=== PATIENT | male | born 1950 | race Caucasian/White ===

== ENCOUNTER 2022-01-10 12:18 | Inpatient (IN) | payer OTHER, SELFPAY ==
--- NOTE | ~2022-01-10 | CT_ITS ---
EXAMINATION: CT BRAIN AND CT CERVICAL SPINE WITHOUT CONTRAST. CLINICAL INFORMATION: Fall. Pain. COMPARISON: CT cervical spine 07/30/2015 TECHNIQUE: 5 mm thin axial and reformatted 2 mm thin sagittal and coronal images of brain were obtained. Subsequently axial 3 mm thin and reformatted 2 mm thin sagittal and coronal images of cervical spine were obtained. DL [id number] FINDINGS: Brain: There is no acute intra-axial, extra-axial bleed, masses or midline shift. There is no acute infarction evolution. The lateral ventricles are symmetrical in size and configuration without enlargement. The chacon to white matter difference is maintained. There is bilateral basal ganglionic nonspecific calcifications. Bone windows reveal no calvarial abnormality. There is no scalp soft tissue abnormality. There is diffuse mucoperiosteal thickening bilateral frontal, ethmoid and right maxillary sinuses. The mastoid air cells are well-aerated. Cervical spine: There is normal cervical lordosis. The vertebral heights, alignment and disc heights are normal. The craniovertebral junction and the C1-C2 alignment is normal. There is no visible acute fracture, dislocation or subluxation. No lytic or sclerotic process seen. The prevertebral and paravertebral soft tissues are normal. The lung apices are clear. CT/CT cervical spine wo con IMPRESSION: No acute intracranial process seen. No visible acute fracture, dislocation or subluxation seen in cervical spine.
--- NOTE | ~2022-01-10 | XR_ITS ---
EXAMINATION: XR CHEST CLINICAL INFORMATION: Altered mental status. COMPARISON: Chest radiograph done on 02/21/2019. TECHNIQUE: 2 views of the chest were obtained. FINDINGS: Patchy airspace disease is noted at right lung base, suspicious for pneumonia. The remainder of the lung bird are clear. The cardiac mediastinal silhouette is within normal limit. No evidence of any pleural effusion or pneumothorax. Moderate diffuse osteopenia. XR/XR chest 2V IMPRESSION: Patchy airspace disease at right lung base, suspicious for pneumonia.
--- NOTE | ~2022-01-10 | CT_ITS ---
EXAMINATION: CT CHEST, ABDOMEN AND PELVIS WITH CONTRAST. CLINICAL INFORMATION: Fall. Pain. COMPARISON: Chest x-ray 07/24/2018 TECHNIQUE: 5 mm thin axial and reformatted 3 mm thin sagittal and coronal images of chest, abdomen pelvis were obtained following IV 85 mL Omnipaque 350. DLP 1317 FINDINGS: CHEST: The lungs are well-expanded parenchymal patchy density right lower lobe medial segment and reticular patchy stranding right middle lobe. Both upper lobes are relatively clear. There is mild centrilobular emphysema. There are subcentimeter nodules throughout both lungs. A groundglass nodule is seen right upper lobe at the confluence of major and minor fissure. The heart size and the great vessels are normal caliber central trachea and the bronchi widely patent. The thyroid lobes are symmetrical. There is mild to sclerotic calcification of thoracic arch and mild coronary artery calcifications. No pericardial effusion seen. No abnormal size mediastinal or hilar lymph nodes seen. There is no pleural effusion, thickening or calcification. No abnormal size axillary lymph nodes. The chest wall is unremarkable. ABDOMEN AND PELVIS: The liver is homogeneous in density, normal size and contour. No focal lesion or intrahepatic ductal dilatation seen. There are no gallstones or wall thickening Visualized spleen, pancreas and left adrenal gland is unremarkable. A 1.5 cm right adrenal nodule measuring 65 Hounsfield units is noted. The left adrenal gland appears unremarkable. Both kidney nephrograms are symmetrical and normal. No radiopaque calculi or hydronephrosis seen. There is a nonenhancing 1.6 cm cyst upper pole left kidney no additional lesions seen. No hydronephrosis. There are no radiopaque calculi. There is atherosclerotic calcification of abdominal aorta and common iliac arteries without aneurysmal dilatation. No retrobulbar lymph nodes or mass seen. No retroperitoneal bleed or mass seen. There is scattered stool and gas in the colon without distention. The small bowel loops is normal. Appendix is normal. Imaging to the pelvis reveals a Richardson's catheter in the bladder no free fluid. No hematoma or mass seen. Bone windows reveal severe compression fracture L2 vertebra of indeterminate age. CT/CT abdomen pelvis w con IMPRESSION: Patchy parenchymal opacities in the right lower lobe medial segment and right middle lobe. Likely chronic inflammatory process but new since 2016. Acute infiltration or underlying infiltrative lesion is not excluded. No evidence of lung contusion seen. There is underlying emphysema. No acute intra-abdominal process seen. Moderate constipation. L2 compression fracture of indeterminate age likely new since 2016. Correlate with clinical history
--- NOTE | ~2022-01-10 | CT_ITS ---
EXAMINATION: CT BRAIN AND CT CERVICAL SPINE WITHOUT CONTRAST. CLINICAL INFORMATION: Fall. Pain. COMPARISON: CT cervical spine 07/30/2015 TECHNIQUE: 5 mm thin axial and reformatted 2 mm thin sagittal and coronal images of brain were obtained. Subsequently axial 3 mm thin and reformatted 2 mm thin sagittal and coronal images of cervical spine were obtained. DL [id number] FINDINGS: Brain: There is no acute intra-axial, extra-axial bleed, masses or midline shift. There is no acute infarction evolution. The lateral ventricles are symmetrical in size and configuration without enlargement. The chacon to white matter difference is maintained. There is bilateral basal ganglionic nonspecific calcifications. Bone windows reveal no calvarial abnormality. There is no scalp soft tissue abnormality. There is diffuse mucoperiosteal thickening bilateral frontal, ethmoid and right maxillary sinuses. The mastoid air cells are well-aerated. Cervical spine: There is normal cervical lordosis. The vertebral heights, alignment and disc heights are normal. The craniovertebral junction and the C1-C2 alignment is normal. There is no visible acute fracture, dislocation or subluxation. No lytic or sclerotic process seen. The prevertebral and paravertebral soft tissues are normal. The lung apices are clear. CT/CT head/brain wo con IMPRESSION: No acute intracranial process seen. No visible acute fracture, dislocation or subluxation seen in cervical spine.
--- NOTE | 2022-01-10 12:25 | ECG_ITS ---
Test Reason : unresponsive Blood Pressure : / mmHG Vent. Rate : 070 BPM Atrial Rate : 070 BPM P-R Int : 162 ms QRS Dur : 076 ms QT Int : 424 ms P-R-T Axes : 060 006 027 degrees QTc Int : 457 ms Normal sinus rhythm Normal ECG When compared with ECG of 21-FEB-2019 12:07, No significant change was found Referred By: Ping Lam Electronically Signed By:SELVIN RICHARDSON
--- NOTE | 2022-01-10 12:30 | ED_ITS ---
HPI - Overdose General Chief Complaint: Fall Stated Complaint: fall w head strike and LOC Time Seen by Provider: 01/10/22 12:22 Source: EMS Mode of arrival: EMS History of Present Illness HPI Narrative: 71-year-old male who arrives via EMS with witness fall to the ground on the sidewalk, positive head strike, unresponsive at the scene with slow respirations and EMS initially reported that pupils were not you cool or reactive to light. Patient is unable to provide history at this time. On review of documentation patient has been seen previously for overdose. EMS denies administering any Narcan. Related Data Allergies Allergy/AdvReac Type Severity Reaction Status Date / Time No Known Allergies Allergy Unverified 02/16/20 15:59 [No Known Allergies*] Review of Systems Review of Systems: Yes Unobtainable due to mental condition PMFSH Past Medical History Source: nursing notes reviewed Social History Social History Advance Directives: No Advance Directives Information Provided: No Physical Exam Vital Signs: Vital Signs: Last Vital Signs Pulse 66 01/10/22 15:00 Resp 16 01/10/22 15:00 BP 151/79 H 01/10/22 15:00 Pulse Ox 100 01/10/22 15:00 O2 Del Method 01/10/22 15:00 O2 Flow Rate 2 01/10/22 15:00 Oxygen Flow Rate 4 01/10/22 12:44 BMI result Body Mass Index 25.0 VITAL SIGNS: Reviewed. GENERAL: chronically ill, in no acute distress. HEAD: Normocephalic/atraumatic, EYES: PERRLA, pinpoint pupils EARS: Ext canals without abnormality NOSE: Nares patent bilateral OROPHARYNX: no oral lesions noted, posterior pharynx clear NECK: Supple, no adenopathy LUNGS: Normal breath sounds. No adventitious sounds or accessory muscle use. SpO2<100> initially on nasal cannula and able to be transitioned off. CARDIOVASCULAR: Regular rate and rhythm without noted murmurs, no JVD or lower extremity edema. ABDOMEN: Soft, non-tender, non-distended with bowel sounds. MUSCULOSKELETAL: No tenderness, deformities, or effusions noted on gross inspection. EXTREMITIES: No cyanosis, clubbing or edema. SKIN: Inspection of the skin reveals no rashes NEUROLOGIC: Initially unresponsive, but after Narcan became conscious and answering questions. Course Course Course Narrative: 71-year-old male with history and clinical presentation consistent with on further questioning of the patient after he recovered he states that he intentionally took the street drugs after taking his methadone this morning because he wanted to kill himself. Review of all investigations suggestive of possible or pneumonia, however no SIRS response and patient will receive antibiotics the be placed on a Section 12. Review of all investigations negative for acute findings on imaging, patient is oxygenating well and quite interactive, he received initial antibiotics for pneumonia and will undergo behavioral evaluation and is otherwise medically cleared for further evaluation by the crisis team. MDM - Overdose Lab Data Result diagrams: 01/10/22 12:35 01/10/22 12:35 Labs: Lab Results 01/10/22 01/10/22 01/10/22 Range/Units 12:26 12:32 12:32 WBC (4.8-10.8) X10*3/uL RBC (4.60-5.80) X10*6/uL Hgb (14.0-18.0) g/dl Hct (42.0-52.0) % MCV (80.0-98.0) fL MCH (27.0-33.0) pg MCHC (31.0-36.0) g/dl RDW (11.0-16.0) % Plt Count (160-400) X10*3/uL MPV (9.4-12.4) fL Immature Gran % (Auto) (0.0-0.4) % Neut % (Auto) (45-73) % Lymph % (Auto) (20-40) % [place] % (Auto) (2-11) % Eos % (Auto) (0-4) % Baso % (Auto) (0-2) % Lymph # (Auto) (1.2-4.9) X10*3/uL [place] # (Auto) (0.1-1.2) X10*3/uL Eos # (Auto) (0.0-0.4) X10*3/uL Baso # (Auto) (0.0-0.2) X10*3/uL Abs Immat Gran (auto) (0.00-0.03) X10*3/uL Absolute Neuts (auto) (2.0-8.3) x10*3/uL Absolute Nucleated RBC (0.0-0.012) X10*3/uL Nucleated RBC % (auto) (0.0-0.2) /100WBC PT (10.0-13.1) SEC INR (0.9-1.1) Sodium (135-145) mmol/L Potassium (3.3-5.1) mmol/L Chloride (96-108) mmol/L Carbon Dioxide (22-29) mmol/L Anion Gap (12-20) BUN (9-16) mg/dL Creatinine (0.5-1.4) mg/dL Estim Creat Clear Calc Estimated GFR POC Glucose 79 (60-115) mg/dL Random Glucose (60-115) mg/dL Lactic Acid 2.3 H* (0.5-2.0) mmol/L Lactic Acid F/U @ 2Hr (0.5-2.0) mmol/L Calcium (8.4-10.2) mg/dL Magnesium (1.6-2.6) mg/dL Total Bilirubin (0.0-1.0) mg/dL AST (5-37) U/L ALT (0-40) U/L Alkaline Phosphatase (39-117) U/L Ammonia (13-55) umol/L Total Creatine Kinase (38-174) U/L Troponin I High Sens (<3.5-35.0) ng/L B-Natriuretic Peptide (<100) pg/mL Total Protein (6.5-8.0) g/dL Albumin (3.5-5.0) g/dL Lipase (8-78) U/L Urine Color Urine Appearance Urine pH (5.0-8.0) Ur Specific [place] (1.005-1.025) Urine Protein (NEG-TRACE) MG/DL Urine Glucose (UA) (NEG) MG/DL Urine Ketones (NEG) MG/DL Urine Blood (NEG) Urine Nitrite (NEG) Ur Leukocyte Esterase (NEG) Salicylates (15-30) mg/dL Urine Opiates Screen (Not Detect) Urine Fentanyl Screen (Not Detect) Acetaminophen (<30) mcg/mL Ur Barbiturates Screen (Not Detect) Ur Phencyclidine Scrn (Not Detect) Ur Amphetamines Screen (Not Detect) U Benzodiazepines Scrn (Not Detect) Urine Cocaine Screen (Not Detect) U Marijuana (THC) Screen (Not Detect) Ethyl Alcohol mg/dL COVID-19 (RONNIE) Negative (Negative) COVID-19 Clin Com See Note 01/10/22 01/10/22 01/10/22 Range/Units 12:35 12:35 12:35 WBC 7.4 (4.8-10.8) X10*3/uL RBC 3.79 L (4.60-5.80) X10*6/uL Hgb 10.9 L (14.0-18.0) g/dl Hct 34.8 L (42.0-52.0) % MCV 91.8 (80.0-98.0) fL MCH 28.8 (27.0-33.0) pg MCHC 31.3 (31.0-36.0) g/dl RDW 14.9 (11.0-16.0) % Plt Count 209 (160-400) X10*3/uL MPV 10.0 (9.4-12.4) fL Immature Gran % (Auto) 0.5 H (0.0-0.4) % Neut % (Auto) 37.3 L (45-73) % Lymph % (Auto) 47.2 H (20-40) % [place] % (Auto) 8.2 (2-11) % Eos % (Auto) 6.3 H (0-4) % Baso % (Auto) 0.5 (0-2) % Lymph # (Auto) 3.5 (1.2-4.9) X10*3/uL [place] # (Auto) 0.6 (0.1-1.2) X10*3/uL Eos # (Auto) 0.5 H (0.0-0.4) X10*3/uL Baso # (Auto) 0.0 (0.0-0.2) X10*3/uL Abs Immat Gran (auto) 0.04 H (0.00-0.03) X10*3/uL Absolute Neuts (auto) 2.8 (2.0-8.3) x10*3/uL Absolute Nucleated RBC 0.000 (0.0-0.012) X10*3/uL Nucleated RBC % (auto) 0.0 (0.0-0.2) /100WBC PT 11.5 (10.0-13.1) SEC INR 1.0 (0.9-1.1) Sodium 140 (135-145) mmol/L Potassium 4.1 (3.3-5.1) mmol/L Chloride 106 (96-108) mmol/L Carbon Dioxide 26 (22-29) mmol/L Anion Gap 12 (12-20) BUN 15 (9-16) mg/dL Creatinine 0.75 (0.5-1.4) mg/dL Estim Creat Clear Calc 87.4 Estimated GFR > 60 POC Glucose (60-115) mg/dL Random Glucose 90 (60-115) mg/dL Lactic Acid (0.5-2.0) mmol/L Lactic Acid F/U @ 2Hr (0.5-2.0) mmol/L Calcium 8.7 (8.4-10.2) mg/dL Magnesium 1.8 (1.6-2.6) mg/dL Total Bilirubin 0.3 (0.0-1.0) mg/dL AST 13 (5-37) U/L ALT 11 (0-40) U/L Alkaline Phosphatase 54 (39-117) U/L Ammonia (13-55) umol/L Total Creatine Kinase (38-174) U/L Troponin I High Sens (<3.5-35.0) ng/L B-Natriuretic Peptide (<100) pg/mL Total Protein 6.4 L (6.5-8.0) g/dL Albumin 3.7 (3.5-5.0) g/dL Lipase 4 L (8-78) U/L Urine Color Urine Appearance Urine pH (5.0-8.0) Ur Specific [place] (1.005-1.025) Urine Protein (NEG-TRACE) MG/DL Urine Glucose (UA) (NEG) MG/DL Urine Ketones (NEG) MG/DL Urine Blood (NEG) Urine Nitrite (NEG) Ur Leukocyte Esterase (NEG) Salicylates < 5.0 L (15-30) mg/dL Urine Opiates Screen (Not Detect) Urine Fentanyl Screen (Not Detect) Acetaminophen 2 (<30) mcg/mL Ur Barbiturates Screen (Not Detect) Ur Phencyclidine Scrn (Not Detect) Ur Amphetamines Screen (Not Detect) U Benzodiazepines Scrn (Not Detect) Urine Cocaine Screen (Not Detect) U Marijuana (THC) Screen (Not Detect) Ethyl Alcohol mg/dL COVID-19 (RONNIE) (Negative) COVID-19 Clin Com 01/10/22 01/10/22 01/10/22 Range/Units 12:36 12:36 12:36 WBC (4.8-10.8) X10*3/uL RBC (4.60-5.80) X10*6/uL Hgb (14.0-18.0) g/dl Hct (42.0-52.0) % MCV (80.0-98.0) fL MCH (27.0-33.0) pg MCHC (31.0-36.0) g/dl RDW (11.0-16.0) % Plt Count (160-400) X10*3/uL MPV (9.4-12.4) fL Immature Gran % (Auto) (0.0-0.4) % Neut % (Auto) (45-73) % Lymph % (Auto) (20-40) % [place] % (Auto) (2-11) % Eos % (Auto) (0-4) % Baso % (Auto) (0-2) % Lymph # (Auto) (1.2-4.9) X10*3/uL [place] # (Auto) (0.1-1.2) X10*3/uL Eos # (Auto) (0.0-0.4) X10*3/uL Baso # (Auto) (0.0-0.2) X10*3/uL Abs Immat Gran (auto) (0.00-0.03) X10*3/uL Absolute Neuts (auto) (2.0-8.3) x10*3/uL Absolute Nucleated RBC (0.0-0.012) X10*3/uL Nucleated RBC % (auto) (0.0-0.2) /100WBC PT (10.0-13.1) SEC INR (0.9-1.1) Sodium (135-145) mmol/L Potassium (3.3-5.1) mmol/L Chloride (96-108) mmol/L Carbon Dioxide (22-29) mmol/L Anion Gap (12-20) BUN (9-16) mg/dL Creatinine (0.5-1.4) mg/dL Estim Creat Clear Calc Estimated GFR POC Glucose (60-115) mg/dL Random Glucose (60-115) mg/dL Lactic Acid (0.5-2.0) mmol/L Lactic Acid F/U @ 2Hr (0.5-2.0) mmol/L Calcium (8.4-10.2) mg/dL Magnesium (1.6-2.6) mg/dL Total Bilirubin (0.0-1.0) mg/dL AST (5-37) U/L ALT (0-40) U/L Alkaline Phosphatase (39-117) U/L Ammonia 48 (13-55) umol/L Total Creatine Kinase 122 (38-174) U/L Troponin I High Sens < 3.5 (<3.5-35.0) ng/L B-Natriuretic Peptide 112 H (<100) pg/mL Total Protein (6.5-8.0) g/dL Albumin (3.5-5.0) g/dL Lipase (8-78) U/L Urine Color Urine Appearance Urine pH (5.0-8.0) Ur Specific [place] (1.005-1.025) Urine Protein (NEG-TRACE) MG/DL Urine Glucose (UA) (NEG) MG/DL Urine Ketones (NEG) MG/DL Urine Blood (NEG) Urine Nitrite (NEG) Ur Leukocyte Esterase (NEG) Salicylates (15-30) mg/dL Urine Opiates Screen (Not Detect) Urine Fentanyl Screen (Not Detect) Acetaminophen (<30) mcg/mL Ur Barbiturates Screen (Not Detect) Ur Phencyclidine Scrn (Not Detect) Ur Amphetamines Screen (Not Detect) U Benzodiazepines Scrn (Not Detect) Urine Cocaine Screen (Not Detect) U Marijuana (THC) Screen (Not Detect) Ethyl Alcohol < 10 mg/dL COVID-19 (RONNIE) (Negative) COVID-19 Clin Com 01/10/22 01/10/22 01/10/22 Range/Units 12:42 12:42 15:28 WBC (4.8-10.8) X10*3/uL RBC (4.60-5.80) X10*6/uL Hgb (14.0-18.0) g/dl Hct (42.0-52.0) % MCV (80.0-98.0) fL MCH (27.0-33.0) pg MCHC (31.0-36.0) g/dl RDW (11.0-16.0) % Plt Count (160-400) X10*3/uL MPV (9.4-12.4) fL Immature Gran % (Auto) (0.0-0.4) % Neut % (Auto) (45-73) % Lymph % (Auto) (20-40) % [place] % (Auto) (2-11) % Eos % (Auto) (0-4) % Baso % (Auto) (0-2) % Lymph # (Auto) (1.2-4.9) X10*3/uL [place] # (Auto) (0.1-1.2) X10*3/uL Eos # (Auto) (0.0-0.4) X10*3/uL Baso # (Auto) (0.0-0.2) X10*3/uL Abs Immat Gran (auto) (0.00-0.03) X10*3/uL Absolute Neuts (auto) (2.0-8.3) x10*3/uL Absolute Nucleated RBC (0.0-0.012) X10*3/uL Nucleated RBC % (auto) (0.0-0.2) /100WBC PT (10.0-13.1) SEC INR (0.9-1.1) Sodium (135-145) mmol/L Potassium (3.3-5.1) mmol/L Chloride (96-108) mmol/L Carbon Dioxide (22-29) mmol/L Anion Gap (12-20) BUN (9-16) mg/dL Creatinine (0.5-1.4) mg/dL Estim Creat Clear Calc Estimated GFR POC Glucose (60-115) mg/dL Random Glucose (60-115) mg/dL Lactic Acid (0.5-2.0) mmol/L Lactic Acid F/U @ 2Hr 1.5 (0.5-2.0) mmol/L Calcium (8.4-10.2) mg/dL Magnesium (1.6-2.6) mg/dL Total Bilirubin (0.0-1.0) mg/dL AST (5-37) U/L ALT (0-40) U/L Alkaline Phosphatase (39-117) U/L Ammonia (13-55) umol/L Total Creatine Kinase (38-174) U/L Troponin I High Sens (<3.5-35.0) ng/L B-Natriuretic Peptide (<100) pg/mL Total Protein (6.5-8.0) g/dL Albumin (3.5-5.0) g/dL Lipase (8-78) U/L Urine Color YELLOW Urine Appearance CLEAR Urine pH 6.0 (5.0-8.0) Ur Specific [place] >= 1.030 H (1.005-1.025) Urine Protein TRACE (NEG-TRACE) MG/DL Urine Glucose (UA) NEG (NEG) MG/DL Urine Ketones 5 (NEG) MG/DL Urine Blood NEG (NEG) Urine Nitrite NEG (NEG) Ur Leukocyte Esterase NEG (NEG) Salicylates (15-30) mg/dL Urine Opiates Screen POSITIVE H (Not Detect) Urine Fentanyl Screen POSITIVE H (Not Detect) Acetaminophen (<30) mcg/mL Ur Barbiturates Screen Not Detected (Not Detect) Ur Phencyclidine Scrn Not Detected (Not Detect) Ur Amphetamines Screen Not Detected (Not Detect) U Benzodiazepines Scrn Not Detected (Not Detect) Urine Cocaine Screen Not Detected (Not Detect) U Marijuana (THC) Screen Not Detected (Not Detect) Ethyl Alcohol mg/dL COVID-19 (RONNIE) (Negative) COVID-19 Clin Com ECG Data Attestation: I personally reviewed and interpreted this ECG as follows: Prior ECG tracings: available for review Interpretation: Normal sinus rhythm, HR-70, no STEMI, OK/QRS/QTC is within normal limits. Discharge Plan Discharge Clinical Impression: Intentional overdose, Pneumonia, Suicidal ideation Patient Disposition: Still a Patient
[2022-01-10 12:42] LABS: Glucose, Whole Blood 79 mg/dL (60-115)
[2022-01-10 12:44] VITALS: BP 153/87; PULSE 85; RESP 12; O2SAT 98; BMI 25.0
[2022-01-10 12:48] LABS: Appearance Urine CLEAR; Color Urine YELLOW; Glucose Urine UA NEG (NEG); Leukocyte Esterase Urine NEG (NEG); Nitrite Urine NEG (NEG); Specific Gravity - Urine >= 1.030 (1.005-1.025); Urine Blood NEG (NEG); Urine Ketones 5 MG/DL (NEG); Urine Protein TRACE MG/DL (NEG-TRACE)
[2022-01-10 12:48] LABS: MANUAL DIFF FLAG NO
[2022-01-10] MEDS: 0.9 % Sodium Chloride 1,000 ML 999 ML IVCONT (12:48)
[2022-01-10] MEDS: Naloxone HCl Nasal 4 MG SPRAY NOSTRILALT (12:48)
[2022-01-10 12:55] LABS: Basophils Percent Auto 0.5 % (0-2); Eosinophils Absolute Auto 0.5 X10*3/uL (0.0-0.4); Eosinophils Percent Auto 6.3 % (0-4); Hematocrit 34.8 % (42.0-52.0); Hemoglobin 10.9 g/dl (14.0-18.0); Imm Gran Abs Auto 0.04 X10*3/uL (0.00-0.03); Imm Gran Pct Auto 0.5 % (0.0-0.4); Lymphocytes Absolute Auto 3.5 X10*3/uL (1.2-4.9); Lymphocytes Percent Auto 47.2 % (20-40); Mean Corpuscular HGB Conc 31.3 g/dl (31.0-36.0); Mean Corpuscular Hemoglobin 28.8 pg (27.0-33.0); Mean Corpuscular Volume 91.8 fL (80.0-98.0); Monocytes Absolute Auto 0.6 X10*3/uL (0.1-1.2); Monocytes Percent Auto 8.2 % (2-11); Neutrophils Absolute Auto 2.8 x10*3/uL (2.0-8.3); Neutrophils Percent Auto 37.3 % (45-73); Platelet Count 209 X10*3/uL (160-400); Red Blood Count 3.79 X10*6/uL (4.60-5.80); Red Cell Distribution Width 14.9 % (11.0-16.0); White Blood Count 7.4 X10*3/uL (4.8-10.8)
[2022-01-10 12:59] LABS: Ammonia 48 umol/L (13-55)
[2022-01-10 13:00] LABS: Prothrombin Time 11.5 SEC (10.0-13.1)
[2022-01-10 13:04] LABS: Amphetamine Screen Urine Not Detected (Not Detect); Barbiturates, Urine Not Detected (Not Detect); Benzodiazepines Screen Urine Not Detected (Not Detect); Cannabinoid Screen Urine Not Detected (Not Detect); Cocaine Screen Urine Not Detected (Not Detect); Fentanyl, urine POSITIVE (Not Detect); Opiate Screen Urine POSITIVE (Not Detect); Phencyclidine Screen Urine Not Detected (Not Detect)
[2022-01-10 13:09] VITALS: BP 171/81; PULSE 77; RESP 16; O2SAT 98
[2022-01-10 13:12] LABS: Ethanol < 10 mg/dL
[2022-01-10 13:12] LABS: Acetaminophen LAB 2 mcg/mL (<30); Alanine Aminotransferase 11 U/L (0-40); Albumin Level 3.7 g/dL (3.5-5.0); Alkaline Phosphatase 54 U/L (39-117); Anion Gap 12 (12-20); Aspartate Amino Transferase 13 U/L (5-37); Bilirubin Total 0.3 mg/dL (0.0-1.0); Blood Urea Nitrogen 15 mg/dL (9-16); Calcium 8.7 mg/dL (8.4-10.2); Carbon Dioxide 26 mmol/L (22-29); Chloride 106 mmol/L (96-108); Creatinine Clr Calc Pharmacy 87.4; Estimated Glomerular Filt Rate > 60; Glucose Random 90 mg/dL (60-115); Lipase 4 U/L (8-78); Magnesium 1.8 mg/dL (1.6-2.6); Potassium 4.1 mmol/L (3.3-5.1); Salicylate < 5.0 mg/dL (15-30); Sodium 140 mmol/L (135-145); Total Protein 6.4 g/dL (6.5-8.0)
[2022-01-10 13:14] LABS: B Type Natriuretic Peptide 112 pg/mL (<100); Troponin-I High Sensitivity < 3.5 ng/L (<3.5-35.0)
[2022-01-10 13:19] LABS: Lactic Acid 2.3 mmol/L (0.5-2.0)
[2022-01-10 13:30] VITALS: BP 143/83; PULSE 75; RESP 14; O2SAT 99
[2022-01-10 13:35] LABS: COVID-19 Test Negative (Negative)
[2022-01-10] MEDS: 0.9 % Sodium Chloride 1,000 ML 999 ML IV (14:10)
[2022-01-10 14:44] LABS: Reflex Lactate? Lactic Acid Added
[2022-01-10 15:00] VITALS: BP 151/79; PULSE 66; RESP 16; O2SAT 100
[2022-01-10 15:49] LABS: ~Lactic Acid-LAB USE ONLY 1.5 mmol/L (0.5-2.0)
--- NOTE | 2022-01-10 17:34 | PC.NURSE ---
PT EXPRESSED TO DR LEI THAT HIS OD WAS INTENTIONAL AND THAT HE DOESNT WANT TO LIVE. CONSISTENTLY ENDORSES SI HIS GEORGE CATH WAS REMOVED AND EMPTIED OF 2L URINE, HE IS AMBULATORY IN THE ED SAFELY AND HAS TOLERATED PO FLUIDS. PLAN FOR N EVAL FOR SI
[2022-01-10 18:30] VITALS: BP 152/81; PULSE 71; RESP 16; O2SAT 97
--- NOTE | 2022-01-10 18:32 | PC.NURSE ---
IV ACCESS REMOVED AND PT BROUGHT TO THE POD
--- NOTE | 2022-01-10 19:00 | MHC.CARE ---
[facility] Smart sheet completed and confirmed.
[2022-01-11 06:14] VITALS: BP 123/74; PULSE 63; RESP 16; TEMP 36.8; O2SAT 93
--- NOTE | 2022-01-11 06:17 | PC.NURSE ---
Patient slept through the night, no distress observed/reported, med rec completed/JUL updated, disposition per [facility] is section 12 inpatient bed search, VSS, behavior non concerning, will continue to monitor.
--- NOTE | 2022-01-11 07:20 | PC.NURSE ---
patient appears to remain at rest at present respirations are even and unlabored patient appears in no distress
--- NOTE | 2022-01-11 08:26 | PC.NURSE ---
resource asked that i note her numbers for the record [facility] home [id number] and cell [phone]
--- NOTE | 2022-01-11 09:53 | HE.PHANOTE ---
Pharmacy has recieved Methadone Verification form from Letty. Patient receive 25 mg omn 01/10/2022 ay [facility] Dmitry. Letty spoke with Alis. Margarita Alcazar, MarshallD
[2022-01-11] MEDS: methADONE HCl 20 MG/2 ML ORAL.CONC 25 MG PO (10:00)
--- NOTE | 2022-01-11 11:14 | MHC.RECOVSUP ---
PT IS A 71YR OLD MALE WHO ADMITTED TO THE HOSPITAL FOR INTENTIONAL OVERDOSE. I WAS ASKED TO SEE PT BY THE CARE TEAM. PT STATED THAT HE IS ON METHADONE BUT WAS TIRED OF LIVING. HE STATED THAT HE THEN PROCEEDED TO USE A FEW BAGS OF HEROIN. PT STATED THAT HE HAS FAMILY BUT DOES NOT SEE THEM OFTEN. PT STATED THAT [place] AND IT HELPS FOR AWHILE. I ASKED HIM IF HE WOULD BE INTERESTED IN HAVING A STALLION MANAGER. PT STATED YES. THIS STALLION MANAGER WILL MAKE A REFERRAL FOR PT TO OBTAIN A STALLION MANAGER. I ALSO GAVE HIM SOME INFORMATION AND RESOURCES.
[2022-01-11 14:01] VITALS: BP 127/72; PULSE 68; RESP 16; TEMP 36.9; O2SAT 98
--- NOTE | 2022-01-11 16:27 | PHA.MEDREC ---
Pharmacy Consult ? Medication Reconciliation Pharmacy has completed the medication reconciliation. per med list from [place]
[2022-01-11 21:56] VITALS: BP 144/85; PULSE 65; RESP 18; TEMP 36.7; O2SAT 96
[2022-01-12 01:09] VITALS: BP 175/86; PULSE 62; RESP 17; TEMP 36.4; O2SAT 98
--- NOTE | 2022-01-12 06:50 | PC.NURSE ---
Patient slept through the night, no distress observed/reported, med rec completed by pharmacy/pending provider's approval, disposition per [facility] is section 12 inpatient bed search, VSS, behavior non concerning, will continue to monitor.
[2022-01-12] MEDS: Prochlorperazine Maleate 5 MG TABLET PO (07:15)
--- NOTE | 2022-01-12 07:38 | PC.NURSE ---
patient appears to remain at rest this morning, experiencing a little nausea but compazine appearing to have some positive effect patient appears in no distress
[2022-01-12] MEDS: methADONE HCl 20 MG/2 ML ORAL.CONC 25 MG PO (08:01)
[2022-01-12 11:33] VITALS: BP 139/77; PULSE 68; RESP 16; O2SAT 97
[2022-01-12 15:45] VITALS: BP 123/80; PULSE 74; RESP 18; TEMP 36.6; O2SAT 98
[2022-01-12] MEDS: Gabapentin 300 MG CAPSULE 900 MG PO (16:09)
[2022-01-12] MEDS: Gabapentin 400 MG CAPSULE 1200 MG PO (21:44)
[2022-01-12] MEDS: Calcium + Vitamin D 250 MG TABLET 500 MG PO (21:44)
[2022-01-12] MEDS: Sennosides/Docusate Sodium TABLET 2 TAB PO (21:45)
[2022-01-12] MEDS: OLANZapine 7.5 MG TABLET PO (21:45)
[2022-01-12] MEDS: Amitriptyline HCl 10 MG TABLET 20 MG PO (22:19)
--- NOTE | 2022-01-13 06:34 | PC.NURSE ---
Patient slept through the night, no distress observed/reported, medication compliant, PNA treated with doxy, disposition per [facility] is section 12 inpatient bed search, patient may be discharged pending [facility] talk with [facility], VSS, behavior pleasant and non concerning, will continue to monitor.
[2022-01-13 08:07] VITALS: BP 157/89; PULSE 73; RESP 13; TEMP 36.3; O2SAT 96
[2022-01-13] MEDS: methADONE HCl 20 MG/2 ML ORAL.CONC 25 MG PO (10:16)
[2022-01-13] MEDS: Cholecalciferol (Vitamin D3) 25 MCG TABLET 50 MCG PO (10:17)
[2022-01-13] MEDS: Famotidine 20 MG TABLET PO (10:17)
[2022-01-13] MEDS: Gabapentin 300 MG CAPSULE 900 MG PO ×2 (10:17→16:32)
[2022-01-13] MEDS: Magnesium Oxide 400 MG TABLET PO (10:17)
[2022-01-13] MEDS: Tamsulosin HCL 0.4 MG CAPSULE PO (10:17)
[2022-01-13] MEDS: Calcium + Vitamin D 250 MG TABLET 500 MG PO ×2 (10:17→22:11)
[2022-01-13] MEDS: Lidocaine 4 % Patch ADH..PATCH 2 PATCH TRANSDERMA (10:18)
[2022-01-13] MEDS: Divalproex Sodium ER 250 MG TAB.ER.24H 1250 MG PO (12:43)
--- NOTE | 2022-01-13 13:57 | PC.NURSE ---
Patient has been calm/cooperative throughout this RN's shift that began at 8am. Pt able to make needs known. Per Kathy Marte RN, attempting to determine if patient will be admitted for geripsych, or if he will be discharged. Needs to speak with [facility] at [facility]. Pt aware of this and states okay, [facility] . Awaiting update on plan of care.
[2022-01-13] MEDS: Acetaminophen 325 MG TABLET 650 MG PO (16:34)
[2022-01-13 17:03] LABS: COVID-19 Test Negative (Negative); IDNOW Serial# 9DB6401D
[2022-01-13] MEDS: NaPROXEN 250 MG TABLET PO (18:02)
[2022-01-13 21:47] VITALS: BP 141/76; PULSE 65; RESP 18; TEMP 36.6; O2SAT 97
[2022-01-13] MEDS: Amitriptyline HCl 10 MG TABLET 20 MG PO (22:11)
[2022-01-13] MEDS: Gabapentin 400 MG CAPSULE 1200 MG PO (22:11)
[2022-01-13] MEDS: OLANZapine 7.5 MG TABLET PO (22:12)
[2022-01-13] MEDS: Sennosides/Docusate Sodium TABLET 2 TAB PO (22:12)
[2022-01-13 22:22] VITALS: BMI 22.3
--- NOTE | 2022-01-13 22:23 | PC.ADMIT ---
Admitted a 71 yrs. old Frisian speaking male per wheelchair from ED pod with presenting problem of intentionally attempting suicide by overdosing on heroine and fentanyl on [place], [place].The hospital staff reported that Mahendra was taken to the ER by EMS after he was found unconscious along the roadways on [facility].They further reported that he was given Narcan by hospital staff to regain consciousness. Upon admission here in the unit, pt. is alert and oriented x4, memory intact.Skin is warm and dry, intact w/ slight scratches in the coccyx and old fading bruises on upper ext. Patient wears upper dentures and has bilateral hearing aids.Patient signed the CV and all paperworks.Per [facility] and [facility] medical records pt. has hx. of COPD, chronic pain and seizure disorder and uses CPAP machine sometimes. Last seizure 1 month ago.Patient at this time denies SI and pain and feels safe in the unit. Pt. is med compliant w/ all his HS meds and was given snacks and went back to bed.Lab draws donel.We'll continue to monitor patient.
[2022-01-13 22:46] LABS: Valproate 57.5 mcg/mL (50.0-100.0)
[2022-01-14 08:00] VITALS: BP 127/68; PULSE 71; RESP 18; TEMP 35.7; O2SAT 96
[2022-01-14 08:27] LABS: Estimated Average Glucose 103 mg/dL; Hemoglobin A1c % 5.2 %
[2022-01-14 08:36] LABS: Cholesterol 182 mg/dL; HDL Cholesterol 30 mg/dL; LDL Cholesterol Calculated 107 mg/dl; Triglycerides 227 mg/dL
[2022-01-14 08:58] LABS: Free T4 (Free Thyroxine) 0.82 ng/dL (0.71-1.85); Thyroid Stimulating Hormone 3.84 uIU/mL (0.32-4.0)
[2022-01-14] MEDS: Lidocaine 4 % Patch ADH..PATCH 2 PATCH TRANSDERMA (09:24)
[2022-01-14] MEDS: methADONE HCl 20 MG/2 ML ORAL.CONC 25 MG PO (09:27)
[2022-01-14] MEDS: Gabapentin 300 MG CAPSULE 900 MG PO ×2 (09:29→17:26)
[2022-01-14] MEDS: Cholecalciferol (Vitamin D3) 25 MCG TABLET 50 MCG PO (09:29)
[2022-01-14] MEDS: Divalproex Sodium ER 250 MG TAB.ER.24H 1250 MG PO (09:30)
[2022-01-14] MEDS: Calcium + Vitamin D 250 MG TABLET 500 MG PO ×2 (09:31→19:59)
[2022-01-14] MEDS: Famotidine 20 MG TABLET PO (09:31)
[2022-01-14] MEDS: Tamsulosin HCL 0.4 MG CAPSULE PO (09:32)
[2022-01-14] MEDS: Magnesium Oxide 400 MG TABLET PO (09:32)
[2022-01-14] MEDS: Nicotine 14 MG PATCH.TD24 TRANSDERMA (09:35)
[2022-01-14] MEDS: Acetaminophen 325 MG TABLET 650 MG PO ×2 (09:49→20:00)
[2022-01-14 10:06] LABS: Vitamin B12 547 pg/mL (200-900)
--- NOTE | 2022-01-14 15:30 | HO.PSYADMNOT ---
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 The patient reported that he carries a diagnosis of bipolar disorder and also p.o. use disorder as per his report clean and sober of illegal opioids for several years. He stated that in the last with history feeling more depressed elicited by depressed mood, anhedonia, lack of energy, feelings of hopelessness and worthlessness and increase suicidal ideation. The patient impulsively decided to commit suicide by taking an overdose of opioids. He was rushed to the emergency room from the street that past virus found him, he was treated with Narcan and medically stabilized. He was diagnosed also with pneumoniae history did with antibiotics. On interview, the patient was able to contract for safety in the facility, he stated that he has reviewed breast with episodes of with anxiety. He requested the use of Xanax that he used to take back several years ago for anxiety. At this moment he adamantly denies active suicidal ideation or psychotic symptoms Past Psychiatric History: The patient has several psychiatric admissions, he was diagnosed with bipolar disorder in his 40s, he has at least 6 prior psychiatric admissions last admission at [facility]. [facility] Medical Evaluation Reviewed: Yes [facility] Narrative: Currently pneumonia The patient has several admissions into the emergency room for active overdose with opioids in a suicidal attempt Family History: Denies Social History: The patient is born and raised in [place], he served in the [place] and according to him he has 4 adult children. 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[employer], good social support Substance History: Long history of opiate use disorder, he was on methadone for several years. Trauma History: Denies Diagnostics Vital Signs (24Hr): Vital Signs - 24 hr 01/14/22 08:00 Temperature 96.3 F L Pulse Rate 71 Respiratory Rate 18 Blood Pressure 127/68 Pulse Oximetry 96 Oxygen Delivery Method Room Air BMI result Body Mass Index 22.3 Labs Results: 01/10/22 12:35 01/10/22 12:35 Labs: Laboratory Results - last 48 hr 01/13/22 01/13/22 01/14/22 16:21 21:55 07:54 Estimat Average Glucose 103 Hemoglobin A1c % 5.2 Magnesium Triglycerides Cholesterol LDL Cholesterol, Calc HDL Cholesterol Vitamin B12 Folate TSH Free T4 Valproic Acid 57.5 COVID-19 ([facility]IE) Negative COVID-19 Clin Com See Note 01/14/22 01/14/22 07:54 07:54 Estimat Average Glucose Hemoglobin A1c % Magnesium 2.0 Triglycerides 227 Cholesterol 182 LDL Cholesterol, Calc 107 HDL Cholesterol 30 Vitamin B12 547 Folate 5.0 TSH 3.84 Free T4 0.82 Valproic Acid COVID-19 ([facility]) COVID-19 Clin Com Imaging Radiology Impressions: ITS Impressions Abdomen/Pelvis CT 01/10/22 14:46 IMPRESSION: Patchy parenchymal opacities in the right lower lobe medial segment and right middle lobe. Likely chronic inflammatory process but new since 2016. Acute infiltration or underlying infiltrative lesion is not excluded. No evidence of lung contusion seen. There is underlying emphysema. No acute intra-abdominal process seen. Moderate constipation. L2 compression fracture of indeterminate age likely new since 2016. Correlate with clinical history Cervical Spine CT 01/10/22 14:46 IMPRESSION: No acute intracranial process seen. No visible acute fracture, dislocation or subluxation seen in cervical spine. Chest CT 01/10/22 14:46 IMPRESSION: Patchy parenchymal opacities in the right lower lobe medial segment and right middle lobe. Likely chronic inflammatory process but new since 2016. Acute infiltration or underlying infiltrative lesion is not excluded. No evidence of lung contusion seen. There is underlying emphysema. No acute intra-abdominal process seen. Moderate constipation. L2 compression fracture of indeterminate age likely new since 2016. Correlate with clinical history Head CT 01/10/22 14:46 IMPRESSION: No acute intracranial process seen. No visible acute fracture, dislocation or subluxation seen in cervical spine. Chest X-Ray 01/10/22 16:11 IMPRESSION: Patchy airspace disease at right lung base, suspicious for pneumonia. Meds/Allergies Meds Home Medications Medication Instructions Recorded Confirmed Type acetaminophen 500 mg tablet 1,000 mg PO TID PRN Pain, Mild 01/11/22 01/11/22 History alendronate 70 mg tablet 70 mg PO QWEEK 01/11/22 01/11/22 History amitriptyline 10 mg tablet 20 mg PO BEDTIME 01/11/22 01/11/22 History calcium carbonate 500 mg-vitamin 1 tab PO BID 01/11/22 01/11/22 History D3 3.125 mcg (125 unit) tablet cholecalciferol (vitamin D3) 50 50 mcg PO DAILY 01/11/22 01/11/22 History mcg (2,000 unit) tablet cyclobenzaprine 5 mg tablet 5 mg PO BID PRN Muscle Spasm 01/11/22 01/11/22 History diclofenac sodium 1 % topical gel 2 g topical QID PRN osteoarthritis 01/11/22 01/11/22 History divalproex 250 mg tablet,extended 1,250 mg PO DAILY 01/11/22 01/11/22 History release 24 hr (Depakote ER) famotidine 20 mg tablet 20 mg PO DAILY 01/11/22 01/11/22 History gabapentin 300 mg capsule 1,200 mg PO BEDTIME 01/11/22 01/11/22 History gabapentin 300 mg capsule 900 mg PO BID@0900,1700 01/11/22 01/11/22 History ketorolac 0.5 % eye drops 1 drp ophthalmic (eye) BID 01/11/22 01/11/22 History lidocaine 5 % topical patch 2 patch topical DAILY 01/11/22 01/11/22 History magnesium oxide 420 mg tablet 420 mg PO DAILY 01/11/22 01/11/22 History melatonin 5 mg tablet 5 mg PO BEDTIME PRN Sleep 01/11/22 01/11/22 History meloxicam 7.5 mg tablet 7.5 mg PO DAILY PRN Pain, Mild 01/11/22 01/11/22 History methadone 10 mg/mL oral concentrate 25 mg PO DAILY 01/11/22 01/11/22 History nicotine 14 mg/24 hr daily 1 patch transdermal DAILY 01/11/22 01/11/22 History transdermal patch olanzapine 2.5 mg tablet 2.5 mg PO DAILY PRN Anxiety 01/11/22 01/11/22 History olanzapine 7.5 mg tablet 7.5 mg PO BEDTIME 01/11/22 01/11/22 History quetiapine 25 mg tablet 12.5 mg PO TID PRN Anxiety 01/11/22 01/11/22 History sennosides 8.6 mg-docusate sodium 2 tab-cap PO BEDTIME 01/11/22 01/11/22 History 50 mg tablet (Senna-S) tamsulosin 0.4 mg capsule 0.4 mg PO DAILY 01/11/22 01/11/22 History Allergies Allergies Allergy/AdvReac Type Severity Reaction Status Date / Time No Known Allergies Allergy Unverified 02/16/20 15:59 [No Known Allergies*] Mental Status Exam Mental Status Exam Patient Appearance: Well Grooomed Patient Orientation: Person, Place and Situation Level of Consciousness: Awake Patient Behavior: Guarded and Cooperative Mood Description: Withdrawn Affect Description: Labile Ability to Follow Directions: Good Speech Pattern: Clear Hallucinations: None Delusions: Not Present Thought Process: Distracted Thought Content: positive for [place] and positive for Poverty of Content Judgement: Fair Assessment & Plan Assessment & Plan (1) Intentional overdose: Status: Acute Code(s): T50.902A - Poisoning by unspecified drugs, medicaments and biological substances, intentional self-harm, initial encounter (2) Pneumonia: Status: Acute Code(s): J18.9 - Pneumonia, unspecified organism (3) Suicidal ideation: Status: Acute Code(s): R45.851 - Suicidal ideations (4) Bipolar disorder: Status: Acute Code(s): F31.9 - Bipolar disorder, unspecified Plan Elderly Iranian male with a long history of bipolar disorder and opiate use disorder with several prior admissions into the emergency room for intentional overdose on opiates suicidal attempt. Currently he is stable but he was also diagnosed of pneumonia anti 1 Yo [place] right now. He has all his care at the [place]. Plan 1. Gather collateral information. 2. Continue with Depakote gabapentin other mood stabilizers. 3. Add a low dose of Ativan p.r.n. anxiety. Patient educated on: diagnosis Guardian/Caregiver educated on: therapeutic strategies and medical condition Informed Consent: understands Reason for continued inpatient stay Substantial Risk for: harm to self, inability to function, rapid decompensation and med/psych decompensation
[2022-01-14 18:00] VITALS: BP 130/69; PULSE 70; RESP 16; TEMP 36.3; O2SAT 98
[2022-01-14 19:32] VITALS: BP 130/69; PULSE 70; RESP 16; TEMP 36.3; O2SAT 98
[2022-01-14] MEDS: Amitriptyline HCl 10 MG TABLET 20 MG PO (19:58)
[2022-01-14] MEDS: Gabapentin 400 MG CAPSULE 1200 MG PO (19:59)
[2022-01-14] MEDS: OLANZapine 7.5 MG TABLET PO (19:59)
[2022-01-14] MEDS: Sennosides/Docusate Sodium TABLET 2 TAB PO (19:59)
[2022-01-14] MEDS: hydrOXYzine HCL 25 MG TABLET PO (20:01)
[2022-01-15 06:00] VITALS: BP 143/82; PULSE 67; RESP 18; TEMP 35.9; O2SAT 97
[2022-01-15] MEDS: Cholecalciferol (Vitamin D3) 25 MCG TABLET 50 MCG PO (07:50)
[2022-01-15] MEDS: Tamsulosin HCL 0.4 MG CAPSULE PO (07:50)
[2022-01-15] MEDS: Famotidine 20 MG TABLET PO (07:50)
[2022-01-15] MEDS: Magnesium Oxide 400 MG TABLET PO (07:51)
[2022-01-15] MEDS: Divalproex Sodium ER 250 MG TAB.ER.24H 1250 MG PO (07:51)
[2022-01-15] MEDS: Gabapentin 300 MG CAPSULE 900 MG PO ×2 (07:51→18:14)
[2022-01-15] MEDS: methADONE HCl 20 MG/2 ML ORAL.CONC 25 MG PO (07:52)
[2022-01-15] MEDS: Nicotine 14 MG PATCH.TD24 TRANSDERMA (07:55)
[2022-01-15] MEDS: Calcium + Vitamin D 250 MG TABLET 500 MG PO ×2 (07:59→19:56)
[2022-01-15] MEDS: Lidocaine 4 % Patch ADH..PATCH 2 PATCH TRANSDERMA (10:10)
[2022-01-15] MEDS: LORazepam 0.5 MG TABLET PO (12:46)
--- NOTE | 2022-01-15 14:45 | HO.PSYCHPN ---
Subjective Subjective Date of Service: 01/15/22 Reason For Visit: fall w head strike and LOC Subjective Notes: Conditional Voluntary Interim History: The nursing staff reported the patient slept well but he has been complaining of anxiety. Occupational therapy did a Dawson he scored 17/30 his Doc test history 0.4. Today on interview the patient reports of increased anxiety, he stated in the past he used to use Seroquel and he requested to go back to the medication. Currently he is on Zyprexa 7.5 mg and p.r.n. Zyprexa. At this moment we will keep the Zyprexa and had Seroquel 100 mg p.o. t.i.d. to target anxiety and restlessness and impulsivity. Mental Status Exam Mental Status Exam Patient Appearance: Well Grooomed Patient Orientation: Person and Situation Level of Consciousness: Awake Patient Behavior: Cooperative Mood Description: Withdrawn Affect Description: Constricted Patient Cognition Impaired: Yes Ability to Follow Directions: Good Speech Pattern: Clear Memory Description: Intact Hallucinations: None Delusions: Paranoid Ideation Thought Process: Distracted Thought Content: positive for [place] and positive for Thought Blocking Judgement: Fair Diagnostics Vital Signs (24Hr): Vital Signs - 24 hr 01/14/22 19:32 01/14/22 18:00 01/15/22 06:00 Temperature 97.4 F 97.4 F 96.6 F L Pulse Rate 70 70 67 Respiratory Rate 16 16 18 Blood Pressure 130/69 130/69 143/82 H Pulse Oximetry 98 98 97 Oxygen Delivery Method Room Air Room Air Room Air BMI result Body Mass Index 22.3 Labs Results: 01/10/22 12:35 01/10/22 12:35 Labs: Laboratory Results - last 48 hr 01/13/22 01/13/22 01/14/22 16:21 21:55 07:54 Estimat Average Glucose 103 Hemoglobin A1c % 5.2 Magnesium Triglycerides Cholesterol LDL Cholesterol, Calc HDL Cholesterol Vitamin B12 Folate TSH Free T4 Valproic Acid 57.5 COVID-19 ([facility]) Negative COVID-19 Clin Com See Note 01/14/22 01/14/22 07:54 07:54 Estimat Average Glucose Hemoglobin A1c % Magnesium 2.0 Triglycerides 227 Cholesterol 182 LDL Cholesterol, Calc 107 HDL Cholesterol 30 Vitamin B12 547 Folate 5.0 TSH 3.84 Free T4 0.82 Valproic Acid COVID-19 ([facility]NIE) COVID-19 Clin Com Imaging Radiology Impressions: ITS Impressions Abdomen/Pelvis CT 01/10/22 14:46 IMPRESSION: Patchy parenchymal opacities in the right lower lobe medial segment and right middle lobe. Likely chronic inflammatory process but new since 2016. Acute infiltration or underlying infiltrative lesion is not excluded. No evidence of lung contusion seen. There is underlying emphysema. No acute intra-abdominal process seen. Moderate constipation. L2 compression fracture of indeterminate age likely new since 2016. Correlate with clinical history Cervical Spine CT 01/10/22 14:46 IMPRESSION: No acute intracranial process seen. No visible acute fracture, dislocation or subluxation seen in cervical spine. Chest CT 01/10/22 14:46 IMPRESSION: Patchy parenchymal opacities in the right lower lobe medial segment and right middle lobe. Likely chronic inflammatory process but new since 2016. Acute infiltration or underlying infiltrative lesion is not excluded. No evidence of lung contusion seen. There is underlying emphysema. No acute intra-abdominal process seen. Moderate constipation. L2 compression fracture of indeterminate age likely new since 2016. Correlate with clinical history Head CT 01/10/22 14:46 IMPRESSION: No acute intracranial process seen. No visible acute fracture, dislocation or subluxation seen in cervical spine. Chest X-Ray 01/10/22 16:11 IMPRESSION: Patchy airspace disease at right lung base, suspicious for pneumonia. Medications Medications Current Medications Acetaminophen (Acetaminophen 325 Mg Tablet) 650 mg PO TID PRN PRN Reason: Pain, Mild Last Admin: 01/14/22 20:00 Dose: 650 mg Al Hydroxide/Mg Hydroxide (Magnesium Hydrox/Alum Hydrox 30 Ml Oral.Susp) 30 ml PO Q6H PRN PRN Reason: Heartburn/Nausea Amitriptyline HCl (Amitriptyline Hcl 10 Mg Tablet) 20 mg PO BEDTIME COUNT INCLUDES THE [facility] Last Admin: 01/14/22 19:58 Dose: 20 mg Calcium Carbonate/Cholecalciferol (Calcium + Vitamin D 250 Mg Tablet) 500 mg PO BID COUNT INCLUDES THE [facility] Last Admin: 01/15/22 07:59 Dose: 500 mg Cyclobenzaprine HCl (Cyclobenzaprine Hcl 5 Mg Tablet) 5 mg PO BID PRN PRN Reason: Muscle Spasm Divalproex Sodium (Divalproex Sodium Er 250 Mg Tab.Er.24h) 1,250 mg PO DAILY COUNT INCLUDES THE [facility] Last Admin: 01/15/22 07:51 Dose: 1,250 mg Doxycycline Hyclate (Doxycycline Hyclate 100 Mg Tablet) 100 mg PO Q12H COUNT INCLUDES THE [facility] Stop: 01/15/22 17:59 Last Admin: 01/15/22 06:19 Dose: 100 mg Famotidine (Famotidine 20 Mg Tablet) 20 mg PO DAILY COUNT INCLUDES THE [facility] Last Admin: 01/15/22 07:50 Dose: 20 mg Gabapentin (Gabapentin 300 Mg Capsule) 900 mg PO BID@0900,1700 COUNT INCLUDES THE [facility] Last Admin: 01/15/22 07:51 Dose: 900 mg Gabapentin (Gabapentin 400 Mg Capsule) 1,200 mg PO BEDTIME COUNT INCLUDES THE [facility] Last Admin: 01/14/22 19:59 Dose: 1,200 mg Hydroxyzine HCl (Hydroxyzine Hcl 25 Mg Tablet) 25 mg PO Q6H PRN PRN Reason: Anxiety Last Admin: 01/14/22 20:01 Dose: 25 mg Ketorolac Tromethamine (Ketorolac Tromethamine 0.5% Op 3 Ml Drops) 1 drop EYE-BOTH BID COUNT INCLUDES THE [facility] Last Admin: 01/15/22 10:09 Dose: Not Given Lidocaine (Lidocaine 4 % Patch Adh..Patch) 2 patch TRANSDERMA DAILY COUNT INCLUDES THE [facility] Last Admin: 01/15/22 10:10 Dose: 2 patch Lorazepam (Lorazepam 0.5 Mg Tablet) 0.5 mg PO Q8H PRN PRN Reason: Anxiety Last Admin: 01/15/22 12:46 Dose: 0.5 mg Magnesium Hydroxide (Milk Of Magnesia 30 Ml Oral.Susp) 30 ml PO DAILY PRN PRN Reason: Constipation Magnesium Oxide (Magnesium Oxide 400 Mg Tablet) 400 mg PO DAILY COUNT INCLUDES THE [facility] Last Admin: 01/15/22 07:51 Dose: 400 mg Melatonin (Melatonin 3 Mg Tablet) 6 mg PO BEDTIME PRN PRN Reason: Sleep Methadone HCl (Methadone Hcl 20 Mg/2 Ml Oral.Conc) 25 mg PO DAILY COUNT INCLUDES THE [facility] Last Admin: 01/15/22 07:52 Dose: 25 mg Naproxen (Naproxen 250 Mg Tablet) 250 mg PO BID PRN PRN Reason: Pain, Mild Last Admin: 01/13/22 18:02 Dose: 250 mg Nicotine (Nicotine 14 Mg Patch.Td24) 14 mg TRANSDERMA DAILY COUNT INCLUDES THE [facility] Last Admin: 01/15/22 07:55 Dose: 14 mg Olanzapine (Olanzapine 2.5 Mg Tablet) 2.5 mg PO DAILY PRN PRN Reason: Anxiety Olanzapine (Olanzapine 7.5 Mg Tablet) 7.5 mg PO BEDTIME COUNT INCLUDES THE [facility] Last Admin: 01/14/22 19:59 Dose: 7.5 mg Quetiapine Fumarate (Quetiapine Fumarate 25 Mg Tablet) 12.5 mg PO TID PRN PRN Reason: Anxiety Quetiapine Fumarate (Quetiapine Fumarate 100 Mg Tablet) 100 mg PO TID COUNT INCLUDES THE [facility] Senna/Docusate Sodium (Sennosides/Docusate Sodium Tablet) 2 tab PO BEDTIME COUNT INCLUDES THE [facility] Last Admin: 01/14/22 19:59 Dose: 2 tab Tamsulosin HCl (Tamsulosin Hcl 0.4 Mg Capsule) 0.4 mg PO DAILY COUNT INCLUDES THE [facility] Last Admin: 01/15/22 07:50 Dose: 0.4 mg Trazodone HCl (Trazodone Hcl 50 Mg Tablet) 50 mg PO BEDTIME PRN PRN Reason: Insomnia Vitamin D (Cholecalciferol (Vitamin D3) 25 Mcg Tablet) 50 mcg PO DAILY COUNT INCLUDES THE [facility] Last Admin: 01/15/22 07:50 Dose: 50 mcg Allergies Allergies Allergy/AdvReac Type Severity Reaction Status Date / Time No Known Allergies Allergy Unverified 02/16/20 15:59 [No Known Allergies*] Assessment & Plan Assessment & Plan (1) Intentional overdose: Status: Acute Code(s): T50.902A - Poisoning by unspecified drugs, medicaments and biological substances, intentional self-harm, initial encounter (2) Pneumonia: Status: Acute Code(s): J18.9 - Pneumonia, unspecified organism (3) Suicidal ideation: Status: Acute Code(s): R45.851 - Suicidal ideations (4) Bipolar disorder: Status: Acute Code(s): F31.9 - Bipolar disorder, unspecified Plan Elderly [place] male with a long history of bipolar disorder and opiate use disorder with several prior admissions into the emergency room for intentional overdose on opiates suicidal attempt. Currently he is stable but he was also diagnosed of pneumonia anti 1 Yo [place] right now. [facility]. Plan 1. Gather collateral information. 2. Continue with Depakote gabapentin other mood stabilizers. 3. Add a low dose of Ativan p.r.n. anxiety. 4. Start Seroquel 100 mg p.o. t.i.d. I spent ___20___ minutes with the patient and/or on the patient floor today, greater than?50% of which was spent counseling/coordinating care. Reason for contiued inpatient stay Substantial Risk for: inability to function, rapid decompensation and med/psych decompensation
[2022-01-15] MEDS: QUEtiapine Fumarate 100 MG TABLET PO ×2 (15:29→19:57)
[2022-01-15] MEDS: Acetaminophen 325 MG TABLET 650 MG PO (15:32)
[2022-01-15 18:00] VITALS: BP 148/66; PULSE 75; RESP 16; TEMP 36.1; O2SAT 93
[2022-01-15] MEDS: Sennosides/Docusate Sodium TABLET 2 TAB PO (19:56)
[2022-01-15] MEDS: OLANZapine 7.5 MG TABLET PO (19:57)
[2022-01-15] MEDS: Gabapentin 400 MG CAPSULE 1200 MG PO (19:57)
[2022-01-15] MEDS: Amitriptyline HCl 10 MG TABLET 20 MG PO (19:57)
[2022-01-16 06:00] VITALS: BP 131/68; PULSE 70; RESP 14; TEMP 36.6; O2SAT 98
[2022-01-16 07:00] VITALS: BMI 23.1
[2022-01-16] MEDS: methADONE HCl 20 MG/2 ML ORAL.CONC 25 MG PO (08:14)
[2022-01-16] MEDS: Famotidine 20 MG TABLET PO (08:14)
[2022-01-16] MEDS: Cholecalciferol (Vitamin D3) 25 MCG TABLET 50 MCG PO (08:14)
[2022-01-16] MEDS: Tamsulosin HCL 0.4 MG CAPSULE PO (08:14)
[2022-01-16] MEDS: Magnesium Oxide 400 MG TABLET PO (08:15)
[2022-01-16] MEDS: QUEtiapine Fumarate 100 MG TABLET PO ×2 (08:15→16:44)
[2022-01-16] MEDS: Divalproex Sodium ER 250 MG TAB.ER.24H 1250 MG PO (08:15)
[2022-01-16] MEDS: Calcium + Vitamin D 250 MG TABLET 500 MG PO ×2 (08:15→20:34)
[2022-01-16] MEDS: Gabapentin 300 MG CAPSULE 900 MG PO ×2 (09:48→16:44)
[2022-01-16] MEDS: Lidocaine 4 % Patch ADH..PATCH 2 PATCH TRANSDERMA (10:41)
[2022-01-16] MEDS: Nicotine 14 MG PATCH.TD24 TRANSDERMA (10:43)
--- NOTE | 2022-01-16 12:51 | HO.PSYCHPN ---
Subjective Subjective Date of Service: 01/16/22 Reason For Visit: fall w head strike and LOC Subjective Notes: Conditional Voluntary Interim History: The nursing staff reported the patient complained of visual and auditory hallucinations and passive suicidal ideation. He also reported of anxiety and depression. Even though the patient claimed that he is very anxious he looks that he has drug-seeking behavior asking for more sedated of such. We discussed at length risk and benefits and he agreed to cross taper Zyprexa to Seroquel since it is more sedated if and will work better for his anxiety. Mental Status Exam Mental Status Exam Patient Appearance: Well Grooomed Patient Orientation: Person and Situation Level of Consciousness: Awake Patient Behavior: Cooperative Mood Description: Withdrawn Affect Description: Labile Patient Cognition Impaired: Yes Ability to Follow Directions: Good Speech Pattern: Appropriate Hallucinations: Auditory and Visual Delusions: Paranoid Ideation Thought Process: Illogical and Evasive Thought Content: positive for Perseveration Judgement: Fair Diagnostics Vital Signs (24Hr): Vital Signs - 24 hr 01/15/22 18:00 01/16/22 06:00 Temperature 96.9 F 98 F Pulse Rate 75 70 Respiratory Rate 16 14 Blood Pressure 148/66 H 131/68 Pulse Oximetry 93 98 Oxygen Delivery Method Room Air Room Air BMI result Body Mass Index 22.3 Labs Results: 01/10/22 12:35 01/10/22 12:35 Imaging Radiology Impressions: ITS Impressions Abdomen/Pelvis CT 01/10/22 14:46 IMPRESSION: Patchy parenchymal opacities in the right lower lobe medial segment and right middle lobe. Likely chronic inflammatory process but new since 2016. Acute infiltration or underlying infiltrative lesion is not excluded. No evidence of lung contusion seen. There is underlying emphysema. No acute intra-abdominal process seen. Moderate constipation. L2 compression fracture of indeterminate age likely new since 2016. Correlate with clinical history Cervical Spine CT 01/10/22 14:46 IMPRESSION: No acute intracranial process seen. No visible acute fracture, dislocation or subluxation seen in cervical spine. Chest CT 01/10/22 14:46 IMPRESSION: Patchy parenchymal opacities in the right lower lobe medial segment and right middle lobe. Likely chronic inflammatory process but new since 2016. Acute infiltration or underlying infiltrative lesion is not excluded. No evidence of lung contusion seen. There is underlying emphysema. No acute intra-abdominal process seen. Moderate constipation. L2 compression fracture of indeterminate age likely new since 2016. Correlate with clinical history Head CT 01/10/22 14:46 IMPRESSION: No acute intracranial process seen. No visible acute fracture, dislocation or subluxation seen in cervical spine. Chest X-Ray 01/10/22 16:11 IMPRESSION: Patchy airspace disease at right lung base, suspicious for pneumonia. Medications Medications Current Medications Acetaminophen (Acetaminophen 325 Mg Tablet) 650 mg PO TID PRN PRN Reason: Pain, Mild Last Admin: 01/15/22 15:32 Dose: 650 mg Al Hydroxide/Mg Hydroxide (Magnesium Hydrox/Alum Hydrox 30 Ml Oral.Susp) 30 ml PO Q6H PRN PRN Reason: Heartburn/Nausea Amitriptyline HCl (Amitriptyline Hcl 10 Mg Tablet) 20 mg PO BEDTIME [facility] Last Admin: 01/15/22 19:57 Dose: 20 mg Calcium Carbonate/Cholecalciferol (Calcium + Vitamin D 250 Mg Tablet) 500 mg PO BID [facility] Last Admin: 01/16/22 08:15 Dose: 500 mg Cyclobenzaprine HCl (Cyclobenzaprine Hcl 5 Mg Tablet) 5 mg PO BID PRN PRN Reason: Muscle Spasm Divalproex Sodium (Divalproex Sodium Er 250 Mg Tab.Er.24h) 1,250 mg PO DAILY [facility] Last Admin: 01/16/22 08:15 Dose: 1,250 mg Famotidine (Famotidine 20 Mg Tablet) 20 mg PO DAILY [facility] Last Admin: 01/16/22 08:14 Dose: 20 mg Gabapentin (Gabapentin 300 Mg Capsule) 900 mg PO BID@0900,1700 [facility] Last Admin: 01/16/22 09:48 Dose: 900 mg Gabapentin (Gabapentin 400 Mg Capsule) 1,200 mg PO BEDTIME [facility] Last Admin: 01/15/22 19:57 Dose: 1,200 mg Hydroxyzine HCl (Hydroxyzine Hcl 25 Mg Tablet) 25 mg PO Q6H PRN PRN Reason: Anxiety Last Admin: 01/14/22 20:01 Dose: 25 mg Ketorolac Tromethamine (Ketorolac Tromethamine 0.5% Op 3 Ml Drops) 1 drop EYE-BOTH BID [facility] Last Admin: 01/16/22 10:45 Dose: Not Given Lidocaine (Lidocaine 4 % Patch Adh..Patch) 2 patch TRANSDERMA DAILY [facility] Last Admin: 01/16/22 10:41 Dose: 2 patch Lorazepam (Lorazepam 0.5 Mg Tablet) 0.5 mg PO Q8H PRN PRN Reason: Anxiety Last Admin: 01/15/22 12:46 Dose: 0.5 mg Magnesium Hydroxide (Milk Of Magnesia 30 Ml Oral.Susp) 30 ml PO DAILY PRN PRN Reason: Constipation Magnesium Oxide (Magnesium Oxide 400 Mg Tablet) 400 mg PO DAILY [facility] Last Admin: 01/16/22 08:15 Dose: 400 mg Melatonin (Melatonin 3 Mg Tablet) 6 mg PO BEDTIME PRN PRN Reason: Sleep Methadone HCl (Methadone Hcl 20 Mg/2 Ml Oral.Conc) 25 mg PO DAILY [facility] Last Admin: 01/16/22 08:14 Dose: 25 mg Naproxen (Naproxen 250 Mg Tablet) 250 mg PO BID PRN PRN Reason: Pain, Mild Last Admin: 01/13/22 18:02 Dose: 250 mg Nicotine (Nicotine 14 Mg Patch.Td24) 14 mg TRANSDERMA DAILY [facility] Last Admin: 01/16/22 10:43 Dose: 14 mg Olanzapine (Olanzapine 2.5 Mg Tablet) 2.5 mg PO DAILY PRN PRN Reason: Anxiety Olanzapine (Olanzapine 7.5 Mg Tablet) 7.5 mg PO BEDTIME [facility] Last Admin: 01/15/22 19:57 Dose: 7.5 mg Quetiapine Fumarate (Quetiapine Fumarate 100 Mg Tablet) 100 mg PO BID@0800,1700 [facility] Quetiapine Fumarate (Quetiapine Fumarate 200 Mg Tablet) 200 mg PO BEDTIME [facility] Senna/Docusate Sodium (Sennosides/Docusate Sodium Tablet) 2 tab PO BEDTIME [facility] Last Admin: 01/15/22 19:56 Dose: 2 tab Tamsulosin HCl (Tamsulosin Hcl 0.4 Mg Capsule) 0.4 mg PO DAILY [facility] Last Admin: 01/16/22 08:14 Dose: 0.4 mg Trazodone HCl (Trazodone Hcl 50 Mg Tablet) 50 mg PO BEDTIME PRN PRN Reason: Insomnia Vitamin D (Cholecalciferol (Vitamin D3) 25 Mcg Tablet) 50 mcg PO DAILY [facility] Last Admin: 01/16/22 08:14 Dose: 50 mcg Allergies Allergies Allergy/AdvReac Type Severity Reaction Status Date / Time No Known Allergies Allergy Unverified 02/16/20 15:59 [No Known Allergies*] Assessment & Plan Assessment & Plan (1) Intentional overdose: Status: Acute Code(s): T50.902A - Poisoning by unspecified drugs, medicaments and biological substances, intentional self-harm, initial encounter (2) Pneumonia: Status: Acute Code(s): J18.9 - Pneumonia, unspecified organism (3) Suicidal ideation: Status: Acute Code(s): R45.851 - Suicidal ideations (4) Bipolar disorder: Status: Acute Code(s): F31.9 - Bipolar disorder, unspecified Plan Elderly Pakistani male with a long history of bipolar disorder and opiate use disorder with several prior admissions into the emergency room for intentional overdose on opiates suicidal attempt. Currently he is stable but he was also diagnosed of pneumonia anti 1 Yo Dax right now. He has all his care at the [place]. Plan 1. Gather collateral information. 2. Continue with Depakote gabapentin other mood stabilizers. 3. Add a low dose of Ativan p.r.n. anxiety. 4. Start Seroquel . 5. Start cross tapering of Zyprexa to Seroquel. Today he will receive his Zyprexa 5 mg p.o. q.h.s. and Seroquel will be increased up to 100 mg p.o. b.i.d. and 200 mg p.o. q.h.s. I spent __20____ minutes with the patient and/or on the patient floor today, greater than?50% of which was spent counseling/coordinating care. Reason for contiued inpatient stay Substantial Risk for: inability to function, rapid decompensation and med/psych decompensation
[2022-01-16 18:00] VITALS: BP 114/61; PULSE 75; RESP 19; TEMP 36.1; O2SAT 95
[2022-01-16] MEDS: Amitriptyline HCl 10 MG TABLET 20 MG PO (20:33)
[2022-01-16] MEDS: Sennosides/Docusate Sodium TABLET 2 TAB PO (20:35)
[2022-01-16] MEDS: Gabapentin 400 MG CAPSULE 1200 MG PO (20:35)
[2022-01-16] MEDS: QUEtiapine Fumarate 200 MG TABLET PO (20:35)
[2022-01-16] MEDS: OLANZapine 5 MG TABLET PO (20:35)
[2022-01-17 06:00] VITALS: BP 149/69; PULSE 66; RESP 16; TEMP 36.8; O2SAT 96
[2022-01-17] MEDS: methADONE HCl 20 MG/2 ML ORAL.CONC 25 MG PO (07:52)
[2022-01-17] MEDS: Divalproex Sodium ER 250 MG TAB.ER.24H 1250 MG PO (07:53)
[2022-01-17] MEDS: Famotidine 20 MG TABLET PO (07:56)
[2022-01-17] MEDS: Gabapentin 300 MG CAPSULE 900 MG PO ×2 (07:57→17:44)
[2022-01-17] MEDS: Calcium + Vitamin D 250 MG TABLET 500 MG PO ×2 (07:57→20:26)
[2022-01-17] MEDS: Tamsulosin HCL 0.4 MG CAPSULE PO (07:58)
[2022-01-17] MEDS: Cholecalciferol (Vitamin D3) 25 MCG TABLET 50 MCG PO (07:58)
[2022-01-17] MEDS: Magnesium Oxide 400 MG TABLET PO (07:58)
[2022-01-17] MEDS: QUEtiapine Fumarate 100 MG TABLET PO ×2 (08:03→17:44)
[2022-01-17] MEDS: Lidocaine 4 % Patch ADH..PATCH 2 PATCH TRANSDERMA (10:03)
[2022-01-17] MEDS: Nicotine 14 MG PATCH.TD24 TRANSDERMA (10:04)
--- NOTE | 2022-01-17 11:29 | HO.PSYCHPN ---
Subjective Subjective Date of Service: 01/17/22 Reason For Visit: fall w head strike and LOC Subjective Notes: Conditional Voluntary Interim History: The nursing staff reported the patient has attended a few groups and he reported that he slept poorly but the staff reported that he slept very well. The protective services social worker met with her son who suffers from schizophrenia on he scored on the Doc test report for his [place] a . We discussed regarding discharge planning and on Thursday he will call the [place] services to explore more other services outside his home. On interview, the patient reported no over-sedation with Seroquel 200 at night so will increased up to 300. Mental Status Exam Mental Status Exam Patient Appearance: Well Grooomed Patient Orientation: Person and Situation Level of Consciousness: Awake Patient Behavior: Cooperative Mood Description: Withdrawn Affect Description: Calm Patient Cognition Impaired: Yes Ability to Follow Directions: Good Speech Pattern: Clear Hallucinations: None Delusions: Not Present Thought Process: Distracted Thought Content: positive for Circumstantial Judgement: Fair Diagnostics Vital Signs (24Hr): Vital Signs - 24 hr 01/16/22 18:00 Temperature 96.9 F Pulse Rate 75 Respiratory Rate 19 Blood Pressure 114/61 Pulse Oximetry 95 Oxygen Delivery Method Room Air BMI result Body Mass Index 23.1 Labs Results: 01/10/22 12:35 01/10/22 12:35 Imaging Radiology Impressions: ITS Impressions Abdomen/Pelvis CT 01/10/22 14:46 IMPRESSION: Patchy parenchymal opacities in the right lower lobe medial segment and right middle lobe. Likely chronic inflammatory process but new since 2016. Acute infiltration or underlying infiltrative lesion is not excluded. No evidence of lung contusion seen. There is underlying emphysema. No acute intra-abdominal process seen. Moderate constipation. L2 compression fracture of indeterminate age likely new since 2016. Correlate with clinical history Cervical Spine CT 01/10/22 14:46 IMPRESSION: No acute intracranial process seen. No visible acute fracture, dislocation or subluxation seen in cervical spine. Chest CT 01/10/22 14:46 IMPRESSION: Patchy parenchymal opacities in the right lower lobe medial segment and right middle lobe. Likely chronic inflammatory process but new since 2016. Acute infiltration or underlying infiltrative lesion is not excluded. No evidence of lung contusion seen. There is underlying emphysema. No acute intra-abdominal process seen. Moderate constipation. L2 compression fracture of indeterminate age likely new since 2016. Correlate with clinical history Head CT 01/10/22 14:46 IMPRESSION: No acute intracranial process seen. No visible acute fracture, dislocation or subluxation seen in cervical spine. Chest X-Ray 01/10/22 16:11 IMPRESSION: Patchy airspace disease at right lung base, suspicious for pneumonia. Medications Medications Current Medications Acetaminophen (Acetaminophen 325 Mg Tablet) 650 mg PO TID PRN PRN Reason: Pain, Mild Last Admin: 01/15/22 15:32 Dose: 650 mg Al Hydroxide/Mg Hydroxide (Magnesium Hydrox/Alum Hydrox 30 Ml Oral.Susp) 30 ml PO Q6H PRN PRN Reason: Heartburn/Nausea Amitriptyline HCl (Amitriptyline Hcl 10 Mg Tablet) 20 mg PO BEDTIME [facility] Last Admin: 01/16/22 20:33 Dose: 20 mg Calcium Carbonate/Cholecalciferol (Calcium + Vitamin D 250 Mg Tablet) 500 mg PO BID [facility] Last Admin: 01/17/22 07:57 Dose: 500 mg Cyclobenzaprine HCl (Cyclobenzaprine Hcl 5 Mg Tablet) 5 mg PO BID PRN PRN Reason: Muscle Spasm Divalproex Sodium (Divalproex Sodium Er 250 Mg Tab.Er.24h) 1,250 mg PO DAILY [facility] Last Admin: 01/17/22 07:53 Dose: 1,250 mg Famotidine (Famotidine 20 Mg Tablet) 20 mg PO DAILY [facility] Last Admin: 01/17/22 07:56 Dose: 20 mg Gabapentin (Gabapentin 300 Mg Capsule) 900 mg PO BID@0900,1700 [facility] Last Admin: 01/17/22 07:57 Dose: 900 mg Gabapentin (Gabapentin 400 Mg Capsule) 1,200 mg PO BEDTIME [facility] Last Admin: 01/16/22 20:35 Dose: 1,200 mg Hydroxyzine HCl (Hydroxyzine Hcl 25 Mg Tablet) 25 mg PO Q6H PRN PRN Reason: Anxiety Last Admin: 01/14/22 20:01 Dose: 25 mg Ketorolac Tromethamine (Ketorolac Tromethamine 0.5% Op 3 Ml Drops) 1 drop EYE-BOTH BID [facility] Last Admin: 01/17/22 10:05 Dose: Not Given Lidocaine (Lidocaine 4 % Patch Adh..Patch) 2 patch TRANSDERMA DAILY [facility] Last Admin: 01/17/22 10:03 Dose: 2 patch Lorazepam (Lorazepam 0.5 Mg Tablet) 0.5 mg PO Q8H PRN PRN Reason: Anxiety Last Admin: 01/15/22 12:46 Dose: 0.5 mg Magnesium Hydroxide (Milk Of Magnesia 30 Ml Oral.Susp) 30 ml PO DAILY PRN PRN Reason: Constipation Magnesium Oxide (Magnesium Oxide 400 Mg Tablet) 400 mg PO DAILY [facility] Last Admin: 01/17/22 07:58 Dose: 400 mg Melatonin (Melatonin 3 Mg Tablet) 6 mg PO BEDTIME PRN PRN Reason: Sleep Methadone HCl (Methadone Hcl 20 Mg/2 Ml Oral.Conc) 25 mg PO DAILY [facility] Last Admin: 01/17/22 07:52 Dose: 25 mg Naproxen (Naproxen 250 Mg Tablet) 250 mg PO BID PRN PRN Reason: Pain, Mild Last Admin: 01/13/22 18:02 Dose: 250 mg Nicotine (Nicotine 14 Mg Patch.Td24) 14 mg TRANSDERMA DAILY [facility] Last Admin: 01/17/22 10:04 Dose: 14 mg Olanzapine (Olanzapine 2.5 Mg Tablet) 2.5 mg PO DAILY PRN PRN Reason: Anxiety Olanzapine (Olanzapine 2.5 Mg Tablet) 2.5 mg PO BEDTIME [facility] Quetiapine Fumarate (Quetiapine Fumarate 100 Mg Tablet) 100 mg PO BID@0800,1700 [facility] Last Admin: 01/17/22 08:03 Dose: 100 mg Quetiapine Fumarate (Quetiapine Fumarate 300 Mg Tablet) 300 mg PO BEDTIME [facility] Senna/Docusate Sodium (Sennosides/Docusate Sodium Tablet) 2 tab PO BEDTIME [facility] Last Admin: 01/16/22 20:35 Dose: 2 tab Tamsulosin HCl (Tamsulosin Hcl 0.4 Mg Capsule) 0.4 mg PO DAILY [facility] Last Admin: 01/17/22 07:58 Dose: 0.4 mg Trazodone HCl (Trazodone Hcl 50 Mg Tablet) 50 mg PO BEDTIME PRN PRN Reason: Insomnia Vitamin D (Cholecalciferol (Vitamin D3) 25 Mcg Tablet) 50 mcg PO DAILY [facility] Last Admin: 01/17/22 07:58 Dose: 50 mcg Allergies Allergies Allergy/AdvReac Type Severity Reaction Status Date / Time No Known Allergies Allergy Unverified 02/16/20 15:59 [No Known Allergies*] Assessment & Plan Assessment & Plan (1) Intentional overdose: Status: Acute Code(s): T50.902A - Poisoning by unspecified drugs, medicaments and biological substances, intentional self-harm, initial encounter (2) Pneumonia: Status: Acute Code(s): J18.9 - Pneumonia, unspecified organism (3) Suicidal ideation: Status: Acute Code(s): R45.851 - Suicidal ideations (4) Bipolar disorder: Status: Acute Code(s): F31.9 - Bipolar disorder, unspecified Plan Elderly [place]oc[place] male with a long history of bipolar disorder and opiate use disorder with several prior admissions into the emergency room for intentional overdose on opiates suicidal attempt. Currently he is stable but he was also diagnosed of pneumonia anti 1 Yo Dax right now. He has all his care at the [place]. Plan 1. Gather collateral information. 2. Continue with Depakote gabapentin other mood stabilizers. 3. Add a low dose of Ativan p.r.n. anxiety. 4. Start Seroquel . 5. Start cross tapering of Zyprexa to Seroquel. Today he will receive his Zyprexa 2.5 mg p.o. q.h.s. and Seroquel will be increased up to 100 mg p.o. b.i.d. and 300 mg p.o. q.h.s. I spent ____20__ minutes with the patient and/or on the patient floor today, greater than?50% of which was spent counseling/coordinating care. Reason for contiued inpatient stay Substantial Risk for: inability to function, rapid decompensation and med/psych decompensation
[2022-01-17 18:00] VITALS: BP 140/70; PULSE 71; RESP 17; TEMP 36.2; O2SAT 98
[2022-01-17] MEDS: Amitriptyline HCl 10 MG TABLET 20 MG PO (20:26)
[2022-01-17] MEDS: Sennosides/Docusate Sodium TABLET 2 TAB PO (20:27)
[2022-01-17] MEDS: QUEtiapine Fumarate 300 MG TABLET PO (20:27)
[2022-01-17] MEDS: OLANZapine 2.5 MG TABLET PO (20:27)
[2022-01-17] MEDS: Gabapentin 400 MG CAPSULE 1200 MG PO (20:27)
[2022-01-17] MEDS: Acetaminophen 325 MG TABLET 650 MG PO (20:42)
[2022-01-18] MEDS: Melatonin 3 MG TABLET 6 MG PO (02:07)
[2022-01-18] MEDS: hydrOXYzine HCL 25 MG TABLET PO ×2 (02:08→20:41)
[2022-01-18] MEDS: methADONE HCl 20 MG/2 ML ORAL.CONC 25 MG PO (08:30)
[2022-01-18] MEDS: Divalproex Sodium ER 250 MG TAB.ER.24H 1250 MG PO (08:31)
[2022-01-18] MEDS: Calcium + Vitamin D 250 MG TABLET 500 MG PO ×2 (08:31→20:37)
[2022-01-18] MEDS: QUEtiapine Fumarate 100 MG TABLET PO (08:31)
[2022-01-18] MEDS: Magnesium Oxide 400 MG TABLET PO (08:31)
[2022-01-18] MEDS: Famotidine 20 MG TABLET PO (08:31)
[2022-01-18] MEDS: Cholecalciferol (Vitamin D3) 25 MCG TABLET 50 MCG PO (08:32)
[2022-01-18] MEDS: Gabapentin 300 MG CAPSULE 900 MG PO (08:32)
[2022-01-18] MEDS: Acetaminophen 325 MG TABLET 650 MG PO ×2 (08:38→20:40)
[2022-01-18] MEDS: Tamsulosin HCL 0.4 MG CAPSULE PO (08:48)
--- NOTE | 2022-01-18 09:03 | HO.PSYCHPN ---
Subjective Subjective Date of Service: 01/18/22 Reason For Visit: fall w head strike and LOC Interim History: I spoke with pt's team. He is denying anxiety or depression. Pt slept well per RN, however pt insists this is not true and that he does not sleep. Also complains of back pain. I evaluated the pt today and he states he has problems to sleep, only sleeping 4 hours, says it is not enough, daytime energy is low, however he is up and visible in the day. Denies mood concerns. Says he feels safe. No med changes. Pt is tolerating seroquel increase. Medication Compliance: Yes Side effects from medications: No Attending Groups: Yes Review of Systems Acute medical concerns: No Medical Review of Systems: unchanged Mental Status Exam Mental Status Exam Narrative: Patient Appearance: Well Grooomed Patient Orientation: Person and Situation Level of Consciousness: Awake Patient Behavior: Cooperative Mood Description: Withdrawn Affect Description: Calm Patient Cognition Impaired: Yes Ability to Follow Directions: Good Speech Pattern: Clear Hallucinations: None Delusions: Not Present Thought Process: Distracted Thought Content: positive for Circumstantial Judgement: Fair Diagnostics Vital Signs (24Hr): Vital Signs - 24 hr 01/17/22 18:00 Temperature 97.2 F Pulse Rate 71 Respiratory Rate 17 Blood Pressure 140/70 H Pulse Oximetry 98 Oxygen Delivery Method Room Air BMI result Body Mass Index 23.1 Labs Results: 01/10/22 12:35 01/10/22 12:35 Imaging Radiology Impressions: ITS Impressions Abdomen/Pelvis CT 01/10/22 14:46 IMPRESSION: Patchy parenchymal opacities in the right lower lobe medial segment and right middle lobe. Likely chronic inflammatory process but new since 2015. Acute infiltration or underlying infiltrative lesion is not excluded. No evidence of lung contusion seen. There is underlying emphysema. No acute intra-abdominal process seen. Moderate constipation. L2 compression fracture of indeterminate age likely new since 2016. Correlate with clinical history Cervical Spine CT 01/10/22 14:46 IMPRESSION: No acute intracranial process seen. No visible acute fracture, dislocation or subluxation seen in cervical spine. Chest CT 01/10/22 14:46 IMPRESSION: Patchy parenchymal opacities in the right lower lobe medial segment and right middle lobe. Likely chronic inflammatory process but new since 2016. Acute infiltration or underlying infiltrative lesion is not excluded. No evidence of lung contusion seen. There is underlying emphysema. No acute intra-abdominal process seen. Moderate constipation. L2 compression fracture of indeterminate age likely new since 2016. Correlate with clinical history Head CT 01/10/22 14:46 IMPRESSION: No acute intracranial process seen. No visible acute fracture, dislocation or subluxation seen in cervical spine. Chest X-Ray 01/10/22 16:11 IMPRESSION: Patchy airspace disease at right lung base, suspicious for pneumonia. Medications Medications Current Medications Acetaminophen (Acetaminophen 325 Mg Tablet) 650 mg PO TID PRN PRN Reason: Pain, Mild Last Admin: 01/18/22 08:38 Dose: 650 mg Al Hydroxide/Mg Hydroxide (Magnesium Hydrox/Alum Hydrox 30 Ml Oral.Susp) 30 ml PO Q6H PRN PRN Reason: Heartburn/Nausea Amitriptyline HCl (Amitriptyline Hcl 10 Mg Tablet) 20 mg PO BEDTIME [facility] Last Admin: 01/17/22 20:26 Dose: 20 mg Calcium Carbonate/Cholecalciferol (Calcium + Vitamin D 250 Mg Tablet) 500 mg PO BID [facility] Last Admin: 01/18/22 08:31 Dose: 500 mg Cyclobenzaprine HCl (Cyclobenzaprine Hcl 5 Mg Tablet) 5 mg PO BID PRN PRN Reason: Muscle Spasm Divalproex Sodium (Divalproex Sodium Er 250 Mg Tab.Er.24h) 1,250 mg PO DAILY [facility] Last Admin: 01/18/22 08:31 Dose: 1,250 mg Famotidine (Famotidine 20 Mg Tablet) 20 mg PO DAILY [facility] Last Admin: 01/18/22 08:31 Dose: 20 mg Gabapentin (Gabapentin 300 Mg Capsule) 900 mg PO BID@0900,1700 [facility] Last Admin: 01/18/22 08:32 Dose: 900 mg Gabapentin (Gabapentin 400 Mg Capsule) 1,200 mg PO BEDTIME [facility] Last Admin: 01/17/22 20:27 Dose: 1,200 mg Hydroxyzine HCl (Hydroxyzine Hcl 25 Mg Tablet) 25 mg PO Q6H PRN PRN Reason: Anxiety Last Admin: 01/18/22 02:08 Dose: 25 mg Ketorolac Tromethamine (Ketorolac Tromethamine 0.5% Op 3 Ml Drops) 1 drop EYE-BOTH BID [facility] Last Admin: 01/18/22 08:42 Dose: Not Given Lidocaine (Lidocaine 4 % Patch Adh..Patch) 2 patch TRANSDERMA DAILY [facility] Last Admin: 01/17/22 10:03 Dose: 2 patch Lorazepam (Lorazepam 0.5 Mg Tablet) 0.5 mg PO Q8H PRN PRN Reason: Anxiety Last Admin: 01/15/22 12:46 Dose: 0.5 mg Magnesium Hydroxide (Milk Of Magnesia 30 Ml Oral.Susp) 30 ml PO DAILY PRN PRN Reason: Constipation Magnesium Oxide (Magnesium Oxide 400 Mg Tablet) 400 mg PO DAILY [facility] Last Admin: 01/18/22 08:31 Dose: 400 mg Melatonin (Melatonin 3 Mg Tablet) 6 mg PO BEDTIME PRN PRN Reason: Sleep Last Admin: 01/18/22 02:07 Dose: 6 mg Methadone HCl (Methadone Hcl 20 Mg/2 Ml Oral.Conc) 25 mg PO DAILY [facility] Last Admin: 01/18/22 08:30 Dose: 25 mg Naproxen (Naproxen 250 Mg Tablet) 250 mg PO BID PRN PRN Reason: Pain, Mild Last Admin: 01/13/22 18:02 Dose: 250 mg Nicotine (Nicotine 14 Mg Patch.Td24) 14 mg TRANSDERMA DAILY [facility] Last Admin: 01/17/22 10:04 Dose: 14 mg Olanzapine (Olanzapine 2.5 Mg Tablet) 2.5 mg PO DAILY PRN PRN Reason: Anxiety Olanzapine (Olanzapine 2.5 Mg Tablet) 2.5 mg PO BEDTIME [facility] Last Admin: 01/17/22 20:27 Dose: 2.5 mg Quetiapine Fumarate (Quetiapine Fumarate 100 Mg Tablet) 100 mg PO BID@0800,1700 [facility] Last Admin: 01/18/22 08:31 Dose: 100 mg Quetiapine Fumarate (Quetiapine Fumarate 300 Mg Tablet) 300 mg PO BEDTIME [facility] Last Admin: 01/17/22 20:27 Dose: 300 mg Senna/Docusate Sodium (Sennosides/Docusate Sodium Tablet) 2 tab PO BEDTIME [facility] Last Admin: 01/17/22 20:27 Dose: 2 tab Tamsulosin HCl (Tamsulosin Hcl 0.4 Mg Capsule) 0.4 mg PO DAILY [facility] Last Admin: 01/18/22 08:48 Dose: 0.4 mg Trazodone HCl (Trazodone Hcl 50 Mg Tablet) 50 mg PO BEDTIME PRN PRN Reason: Insomnia Vitamin D (Cholecalciferol (Vitamin D3) 25 Mcg Tablet) 50 mcg PO DAILY [facility] Last Admin: 01/18/22 08:32 Dose: 50 mcg Allergies Allergies Allergy/AdvReac Type Severity Reaction Status Date / Time No Known Allergies Allergy Unverified 02/16/20 15:59 [No Known Allergies*] Assessment & Plan Assessment & Plan (1) Intentional overdose: Status: Acute Code(s): T50.902A - Poisoning by unspecified drugs, medicaments and biological substances, intentional self-harm, initial encounter (2) Pneumonia: Status: Acute Code(s): J18.9 - Pneumonia, unspecified organism (3) Suicidal ideation: Status: Acute Code(s): R45.851 - Suicidal ideations (4) Bipolar disorder: Status: Acute Code(s): F31.9 - Bipolar disorder, unspecified Plan Elderly [place] male with a long history of bipolar disorder and opiate use disorder with several prior admissions into the emergency room for intentional overdose on opiates suicidal attempt. Currently he is stable but he was also diagnosed of pneumonia anti 1 Yo Dax right now. He has all his care at the [place]. Plan 1. Gather collateral information. 2. Continue with Depakote gabapentin other mood stabilizers. 3. Add a low dose of Ativan p.r.n. anxiety. 4. Start Seroquel . 5. Start cross tapering of Zyprexa to Seroquel. Today he will receive his Zyprexa 2.5 mg p.o. q.h.s. and Seroquel will be increased up to 100 mg p.o. b.i.d. and 300 mg p.o. q.h.s. I spent minutes with the patient and/or on the patient floor today, greater than?50% of which was spent counseling/coordinating care. Reason for contiued inpatient stay Substantial Risk for: med/psych decompensation
[2022-01-18] MEDS: Nicotine 14 MG PATCH.TD24 TRANSDERMA (13:11)
[2022-01-18] MEDS: Lidocaine 4 % Patch ADH..PATCH 2 PATCH TRANSDERMA (13:11)
[2022-01-18 18:00] VITALS: BP 121/68; PULSE 66; RESP 17; TEMP 36.7; O2SAT 94
[2022-01-18] MEDS: Amitriptyline HCl 10 MG TABLET 20 MG PO (20:36)
[2022-01-18] MEDS: OLANZapine 2.5 MG TABLET PO (20:37)
[2022-01-18] MEDS: Gabapentin 400 MG CAPSULE 1200 MG PO (20:37)
[2022-01-18] MEDS: Sennosides/Docusate Sodium TABLET 2 TAB PO (20:38)
[2022-01-18] MEDS: QUEtiapine Fumarate 300 MG TABLET PO (20:38)
[2022-01-18] MEDS: traZODone HCL 50 MG TABLET PO ×2 (20:41→21:49)
[2022-01-19 06:00] VITALS: BP 136/78; PULSE 66; RESP 18; TEMP 36.7; O2SAT 94
[2022-01-19] MEDS: Magnesium Oxide 400 MG TABLET PO (08:17)
[2022-01-19] MEDS: methADONE HCl 20 MG/2 ML ORAL.CONC 25 MG PO (08:17)
[2022-01-19] MEDS: QUEtiapine Fumarate 100 MG TABLET PO (08:18)
[2022-01-19] MEDS: Divalproex Sodium ER 250 MG TAB.ER.24H 1250 MG PO (08:18)
[2022-01-19] MEDS: Calcium + Vitamin D 250 MG TABLET 500 MG PO ×2 (08:18→19:57)
[2022-01-19] MEDS: Tamsulosin HCL 0.4 MG CAPSULE PO (08:18)
[2022-01-19] MEDS: Cholecalciferol (Vitamin D3) 25 MCG TABLET 50 MCG PO (08:18)
[2022-01-19] MEDS: Famotidine 20 MG TABLET PO (08:18)
[2022-01-19] MEDS: Gabapentin 300 MG CAPSULE 900 MG PO (08:18)
[2022-01-19] MEDS: Acetaminophen 325 MG TABLET 650 MG PO (08:57)
--- NOTE | 2022-01-19 17:44 | HO.PSYCHPN ---
Subjective Subjective Date of Service: 01/19/22 Reason For Visit: fall w head strike and LOC Interim History: I spoke with pt's team, he slept well but continues to complain of back pain, says NSAIDs and APAP does not help. Denies benefit from lidocaine patch. Will trial aspercreme. I spoke with pt. Mood is okay, went to groups, went outside for fresh air, I was busy today. Sleep is bad, however RN denies this is true. Does not want to increase seroquel because it makes me feel hungry. Says he does not like trazodone also because it makes him feel hungry. Will schedule melatonin as he says this helps. No other med changes. Mental Status Exam Mental Status Exam Narrative: Patient Appearance: Well Grooomed Patient Orientation: Person and Situation Level of Consciousness: Awake Patient Behavior: Cooperative Mood Description: Withdrawn Affect Description: Calm Patient Cognition Impaired: Yes Ability to Follow Directions: Good Speech Pattern: Clear Hallucinations: None Delusions: Not Present Thought Process: Distracted Thought Content: positive for Circumstantial Judgement: Fair Diagnostics Vital Signs (24Hr): Vital Signs - 24 hr 01/18/22 18:00 01/19/22 06:00 Temperature 98.1 F 98.0 F Pulse Rate 66 66 Respiratory Rate 17 18 Blood Pressure 121/68 136/78 Pulse Oximetry 94 94 Oxygen Delivery Method Room Air Room Air BMI result Body Mass Index 23.1 Labs Results: 01/10/22 12:35 01/10/22 12:35 Imaging Radiology Impressions: ITS Impressions Abdomen/Pelvis CT 01/10/22 14:46 IMPRESSION: Patchy parenchymal opacities in the right lower lobe medial segment and right middle lobe. Likely chronic inflammatory process but new since 2016. Acute infiltration or underlying infiltrative lesion is not excluded. No evidence of lung contusion seen. There is underlying emphysema. No acute intra-abdominal process seen. Moderate constipation. L2 compression fracture of indeterminate age likely new since 2016. Correlate with clinical history Cervical Spine CT 01/10/22 14:46 IMPRESSION: No acute intracranial process seen. No visible acute fracture, dislocation or subluxation seen in cervical spine. Chest CT 01/10/22 14:46 IMPRESSION: Patchy parenchymal opacities in the right lower lobe medial segment and right middle lobe. Likely chronic inflammatory process but new since 2016. Acute infiltration or underlying infiltrative lesion is not excluded. No evidence of lung contusion seen. There is underlying emphysema. No acute intra-abdominal process seen. Moderate constipation. L2 compression fracture of indeterminate age likely new since 2016. Correlate with clinical history Head CT 01/10/22 14:46 IMPRESSION: No acute intracranial process seen. No visible acute fracture, dislocation or subluxation seen in cervical spine. Chest X-Ray 01/10/22 16:11 IMPRESSION: Patchy airspace disease at right lung base, suspicious for pneumonia. Medications Medications Current Medications Acetaminophen (Acetaminophen 325 Mg Tablet) 650 mg PO TID PRN PRN Reason: Pain, Mild Last Admin: 01/19/22 08:57 Dose: 650 mg Al Hydroxide/Mg Hydroxide (Magnesium Hydrox/Alum Hydrox 30 Ml Oral.Susp) 30 ml PO Q6H PRN PRN Reason: Heartburn/Nausea Amitriptyline HCl (Amitriptyline Hcl 10 Mg Tablet) 20 mg PO BEDTIME [facility] Last Admin: 01/18/22 20:36 Dose: 20 mg Calcium Carbonate/Cholecalciferol (Calcium + Vitamin D 250 Mg Tablet) 500 mg PO BID [facility] Last Admin: 01/19/22 08:18 Dose: 500 mg Cyclobenzaprine HCl (Cyclobenzaprine Hcl 5 Mg Tablet) 5 mg PO BID PRN PRN Reason: Muscle Spasm Divalproex Sodium (Divalproex Sodium Er 250 Mg Tab.Er.24h) 1,250 mg PO DAILY [facility] Last Admin: 01/19/22 08:18 Dose: 1,250 mg Famotidine (Famotidine 20 Mg Tablet) 20 mg PO DAILY [facility] Last Admin: 01/19/22 08:18 Dose: 20 mg Gabapentin (Gabapentin 300 Mg Capsule) 900 mg PO BID@0900,1700 [facility] Last Admin: 01/19/22 08:18 Dose: 900 mg Gabapentin (Gabapentin 400 Mg Capsule) 1,200 mg PO BEDTIME [facility] Last Admin: 01/18/22 20:37 Dose: 1,200 mg Hydroxyzine HCl (Hydroxyzine Hcl 25 Mg Tablet) 25 mg PO Q6H PRN PRN Reason: Anxiety Last Admin: 01/18/22 20:41 Dose: 25 mg Ketorolac Tromethamine (Ketorolac Tromethamine 0.5% Op 3 Ml Drops) 1 drop EYE-BOTH BID [facility] Last Admin: 01/19/22 08:19 Dose: Not Given Lidocaine (Lidocaine 4 % Patch Adh..Patch) 2 patch TRANSDERMA DAILY [facility] Last Admin: 01/19/22 15:27 Dose: Not Given Magnesium Hydroxide (Milk Of Magnesia 30 Ml Oral.Susp) 30 ml PO DAILY PRN PRN Reason: Constipation Magnesium Oxide (Magnesium Oxide 400 Mg Tablet) 400 mg PO DAILY [facility] Last Admin: 01/19/22 08:17 Dose: 400 mg Melatonin (Melatonin 3 Mg Tablet) 6 mg PO BEDTIME PRN PRN Reason: Sleep Last Admin: 01/18/22 02:07 Dose: 6 mg Methadone HCl (Methadone Hcl 20 Mg/2 Ml Oral.Conc) 25 mg PO DAILY [facility] Last Admin: 01/19/22 08:17 Dose: 25 mg Naproxen (Naproxen 250 Mg Tablet) 250 mg PO BID PRN PRN Reason: Pain, Mild Last Admin: 01/13/22 18:02 Dose: 250 mg Nicotine (Nicotine 14 Mg Patch.Td24) 14 mg TRANSDERMA DAILY [facility] Last Admin: 01/19/22 15:27 Dose: Not Given Olanzapine (Olanzapine 2.5 Mg Tablet) 2.5 mg PO DAILY PRN PRN Reason: Anxiety Olanzapine (Olanzapine 2.5 Mg Tablet) 2.5 mg PO BEDTIME [facility] Last Admin: 01/18/22 20:37 Dose: 2.5 mg Quetiapine Fumarate (Quetiapine Fumarate 100 Mg Tablet) 100 mg PO BID@0800,1700 [facility] Last Admin: 01/19/22 08:18 Dose: 100 mg Quetiapine Fumarate (Quetiapine Fumarate 300 Mg Tablet) 300 mg PO BEDTIME [facility] Last Admin: 01/18/22 20:38 Dose: 300 mg Senna/Docusate Sodium (Sennosides/Docusate Sodium Tablet) 2 tab PO BEDTIME [facility] Last Admin: 01/18/22 20:38 Dose: 2 tab Tamsulosin HCl (Tamsulosin Hcl 0.4 Mg Capsule) 0.4 mg PO DAILY [facility] Last Admin: 01/19/22 08:18 Dose: 0.4 mg Trazodone HCl (Trazodone Hcl 50 Mg Tablet) 50 mg PO BEDTIME PRN PRN Reason: Insomnia Last Admin: 01/18/22 21:49 Dose: 50 mg Vitamin D (Cholecalciferol (Vitamin D3) 25 Mcg Tablet) 50 mcg PO DAILY [facility] Last Admin: 01/19/22 08:18 Dose: 50 mcg Allergies Allergies Allergy/AdvReac Type Severity Reaction Status Date / Time No Known Allergies Allergy Unverified 02/16/20 15:59 [No Known Allergies*] Assessment & Plan Assessment & Plan (1) Intentional overdose: Status: Acute Code(s): T50.902A - Poisoning by unspecified drugs, medicaments and biological substances, intentional self-harm, initial encounter (2) Pneumonia: Status: Acute Code(s): J18.9 - Pneumonia, unspecified organism (3) Suicidal ideation: Status: Acute Code(s): R45.851 - Suicidal ideations (4) Bipolar disorder: Status: Acute Code(s): F31.9 - Bipolar disorder, unspecified Plan Elderly German male with a long history of bipolar disorder and opiate use disorder with several prior admissions into the emergency room for intentional overdose on opiates suicidal attempt. Currently he is stable but he was also diagnosed of pneumonia anti 1 Yo [place] right now. He has all his care at the [facility]. Plan 1. Gather collateral information. 2. Continue with Depakote gabapentin other mood stabilizers. 3. Add a low dose of Ativan p.r.n. anxiety. 4. Start Seroquel . 5. Start cross tapering of Zyprexa to Seroquel. Today he will receive his Zyprexa 2.5 mg p.o. q.h.s. and Seroquel will be increased up to 100 mg p.o. b.i.d. and 300 mg p.o. q.h.s. I spent minutes with the patient and/or on the patient floor today, greater than?50% of which was spent counseling/coordinating care. Patient educated on: medication risk/benefits and therapeutic strategies Reason for contiued inpatient stay Substantial Risk for: med/psych decompensation
[2022-01-19 18:00] VITALS: BP 149/76; PULSE 70; RESP 17; TEMP 35.9; O2SAT 97
[2022-01-19] MEDS: Sennosides/Docusate Sodium TABLET 2 TAB PO (19:57)
[2022-01-19] MEDS: Amitriptyline HCl 10 MG TABLET 20 MG PO (19:57)
[2022-01-19] MEDS: QUEtiapine Fumarate 300 MG TABLET PO (19:57)
[2022-01-19] MEDS: OLANZapine 2.5 MG TABLET PO (19:57)
[2022-01-19] MEDS: Gabapentin 400 MG CAPSULE 1200 MG PO (19:58)
[2022-01-19] MEDS: Melatonin 3 MG TABLET 6 MG PO (19:58)
[2022-01-19] MEDS: traZODone HCL 50 MG TABLET PO (21:46)
[2022-01-20 08:00] VITALS: BP 133/75; PULSE 72; RESP 14; TEMP 36; O2SAT 95
[2022-01-20] MEDS: Calcium + Vitamin D 250 MG TABLET 500 MG PO ×2 (08:02→19:48)
[2022-01-20] MEDS: Divalproex Sodium ER 250 MG TAB.ER.24H 1250 MG PO (08:02)
[2022-01-20] MEDS: QUEtiapine Fumarate 100 MG TABLET PO (08:02)
[2022-01-20] MEDS: Tamsulosin HCL 0.4 MG CAPSULE PO (08:02)
[2022-01-20] MEDS: Famotidine 20 MG TABLET PO (08:02)
[2022-01-20] MEDS: methADONE HCl 20 MG/2 ML ORAL.CONC 25 MG PO (08:02)
[2022-01-20] MEDS: Magnesium Oxide 400 MG TABLET PO (08:02)
[2022-01-20] MEDS: Gabapentin 300 MG CAPSULE 900 MG PO ×2 (08:03→17:12)
[2022-01-20] MEDS: Cholecalciferol (Vitamin D3) 25 MCG TABLET 50 MCG PO (08:03)
[2022-01-20] MEDS: Acetaminophen 325 MG TABLET 650 MG PO (14:28)
--- NOTE | 2022-01-20 15:51 | P.PNPSI_ITS ---
Subjective Subjective Date of Service: 01/20/22 Reason For Visit: fall w head strike and LOC Subjective Notes: Conditional Voluntary Interim History: The nursing staff reported that he has been isolative at times in his room but he attended a few groups. He reports anxiety and depression but he is highly and mood does not have correlation with the observed affect. He looks mildly dysphoric. On interview the patient denies side effects he is on Seroquel 500 mg a day with for improvement. He complains of chronic pain and he wants to increase his opioids or pain management. Mental Status Exam Mental Status Exam Patient Appearance: Well Grooomed Patient Orientation: Person and Situation Level of Consciousness: Awake Patient Behavior: Cooperative Mood Description: Withdrawn Patient Cognition Impaired: Yes Ability to Follow Directions: Good Speech Pattern: Clear Hallucinations: None Delusions: Paranoid Ideation Thought Process: Distracted Thought Content: positive for Obsessional Thoughts and positive for Circumstantial Judgement: Fair Diagnostics Vital Signs (24Hr): Vital Signs - 24 hr 01/19/22 18:00 01/20/22 08:00 Temperature 96.7 F L 96.8 F Pulse Rate 70 72 Respiratory Rate 17 14 Blood Pressure 149/76 H 133/75 Pulse Oximetry 97 95 Oxygen Delivery Method Room Air Room Air BMI result Body Mass Index 23.1 Labs Results: 01/10/22 12:35 01/10/22 12:35 Imaging Radiology Impressions: ITS Impressions Abdomen/Pelvis CT 01/10/22 14:46 IMPRESSION: Patchy parenchymal opacities in the right lower lobe medial segment and right middle lobe. Likely chronic inflammatory process but new since 2016. Acute infiltration or underlying infiltrative lesion is not excluded. No evidence of lung contusion seen. There is underlying emphysema. No acute intra-abdominal process seen. Moderate constipation. L2 compression fracture of indeterminate age likely new since 2016. Correlate with clinical history Cervical Spine CT 01/10/22 14:46 IMPRESSION: No acute intracranial process seen. No visible acute fracture, dislocation or subluxation seen in cervical spine. Chest CT 01/10/22 14:46 IMPRESSION: Patchy parenchymal opacities in the right lower lobe medial segment and right middle lobe. Likely chronic inflammatory process but new since 2016. Acute infiltration or underlying infiltrative lesion is not excluded. No evidence of lung contusion seen. There is underlying emphysema. No acute intra-abdominal process seen. Moderate constipation. L2 compression fracture of indeterminate age likely new since 2016. Correlate with clinical history Head CT 01/10/22 14:46 IMPRESSION: No acute intracranial process seen. No visible acute fracture, dislocation or subluxation seen in cervical spine. Chest X-Ray 01/10/22 16:11 IMPRESSION: Patchy airspace disease at right lung base, suspicious for pneumonia. Medications Medications Current Medications Acetaminophen (Acetaminophen 325 Mg Tablet) 650 mg PO TID PRN PRN Reason: Pain, Mild Last Admin: 01/20/22 14:28 Dose: 650 mg Al Hydroxide/Mg Hydroxide (Magnesium Hydrox/Alum Hydrox 30 Ml Oral.Susp) 30 ml PO Q6H PRN PRN Reason: Heartburn/Nausea Amitriptyline HCl (Amitriptyline Hcl 10 Mg Tablet) 20 mg PO BEDTIME [facility] Last Admin: 01/19/22 19:57 Dose: 20 mg Calcium Carbonate/Cholecalciferol (Calcium + Vitamin D 250 Mg Tablet) 500 mg PO BID [facility] Last Admin: 01/20/22 08:02 Dose: 500 mg Cyclobenzaprine HCl (Cyclobenzaprine Hcl 5 Mg Tablet) 5 mg PO BID PRN PRN Reason: Muscle Spasm Divalproex Sodium (Divalproex Sodium Er 250 Mg Tab.Er.24h) 1,250 mg PO DAILY [facility] Last Admin: 01/20/22 08:02 Dose: 1,250 mg Famotidine (Famotidine 20 Mg Tablet) 20 mg PO DAILY [facility] Last Admin: 01/20/22 08:02 Dose: 20 mg Gabapentin (Gabapentin 300 Mg Capsule) 900 mg PO BID@0900,1700 [facility] Last Admin: 01/20/22 08:03 Dose: 900 mg Gabapentin (Gabapentin 400 Mg Capsule) 1,200 mg PO BEDTIME [facility] Last Admin: 01/19/22 19:58 Dose: 1,200 mg Hydroxyzine HCl (Hydroxyzine Hcl 25 Mg Tablet) 25 mg PO Q6H PRN PRN Reason: Anxiety Last Admin: 01/18/22 20:41 Dose: 25 mg Ketorolac Tromethamine (Ketorolac Tromethamine 0.5% Op 3 Ml Drops) 1 drop EYE- BOTH BID [facility] Last Admin: 01/20/22 10:11 Dose: Not Given Lidocaine (Lidocaine 4 % Patch Adh..Patch) 2 patch TRANSDERMA DAILY [facility] Last Admin: 01/20/22 14:13 Dose: Not Given Magnesium Hydroxide (Milk Of Magnesia 30 Ml Oral.Susp) 30 ml PO DAILY PRN PRN Reason: Constipation Magnesium Oxide (Magnesium Oxide 400 Mg Tablet) 400 mg PO DAILY [facility] Last Admin: 01/20/22 08:02 Dose: 400 mg Melatonin (Melatonin 3 Mg Tablet) 6 mg PO BEDTIME [facility] Last Admin: 01/19/22 19:58 Dose: 6 mg Methadone HCl (Methadone Hcl 20 Mg/2 Ml Oral.Conc) 25 mg PO DAILY [facility] Last Admin: 01/20/22 08:02 Dose: 25 mg Naproxen (Naproxen 250 Mg Tablet) 250 mg PO BID PRN PRN Reason: Pain, Mild Last Admin: 01/13/22 18:02 Dose: 250 mg Nicotine (Nicotine 14 Mg Patch.Td24) 14 mg TRANSDERMA DAILY [facility] Last Admin: 01/20/22 14:13 Dose: Not Given Olanzapine (Olanzapine 2.5 Mg Tablet) 2.5 mg PO DAILY PRN PRN Reason: Anxiety Olanzapine (Olanzapine 2.5 Mg Tablet) 2.5 mg PO BEDTIME [facility] Last Admin: 01/19/22 19:57 Dose: 2.5 mg Quetiapine Fumarate (Quetiapine Fumarate 100 Mg Tablet) 100 mg PO BID@0800,1700 [facility] Last Admin: 01/20/22 08:02 Dose: 100 mg Quetiapine Fumarate (Quetiapine Fumarate 300 Mg Tablet) 300 mg PO BEDTIME [facility] Last Admin: 01/19/22 19:57 Dose: 300 mg Senna/Docusate Sodium (Sennosides/Docusate Sodium Tablet) 2 tab PO BEDTIME [facility] Last Admin: 01/19/22 19:57 Dose: 2 tab Tamsulosin HCl (Tamsulosin Hcl 0.4 Mg Capsule) 0.4 mg PO DAILY [facility] Last Admin: 01/20/22 08:02 Dose: 0.4 mg Trazodone HCl (Trazodone Hcl 50 Mg Tablet) 50 mg PO BEDTIME PRN PRN Reason: Insomnia Last Admin: 01/19/22 21:46 Dose: 50 mg Trolamine Salicylate (Trolamine Salicylate 10 % Cream 85 Gm Tube) 1 appl TOPIC AL QID PRN PRN Reason: back pain Vitamin D (Cholecalciferol (Vitamin D3) 25 Mcg Tablet) 50 mcg PO DAILY [facility] Last Admin: 01/20/22 08:03 Dose: 50 mcg Allergies Allergies Allergy/AdvReac Type Severity Reaction Status Date / Time No Known Allergies Allergy Unverified 02/16/20 15:59 [No Known Allergies*] Assessment & Plan Assessment & Plan (1) Intentional overdose: Status: Acute Code(s): T50.902A - Poisoning by unspecified drugs, medicaments and biological substances, intentional self-harm, initial encounter (2) Pneumonia: Status: Acute Code(s): J18.9 - Pneumonia, unspecified organism (3) Suicidal ideation: Status: Acute Code(s): R45.851 - Suicidal ideations (4) Bipolar disorder: Status: Acute Code(s): F31.9 - Bipolar disorder, unspecified Plan Elderly [place] male with a long history of bipolar disorder and opiate use disorder with several prior admissions into the emergency room for intentional overdose on opiates suicidal attempt. Currently he is stable but he was also diagnosed of pneumonia anti 1 Yo [place] right now. He has all his care at the [facility]. Plan 1. Gather collateral information. 2. Continue with Depakote gabapentin other mood stabilizers. 3. Add a low dose of Ativan p.r.n. anxiety. 4. Start Seroquel . 5. Start cross tapering of Zyprexa to Seroquel. Today he will discontinue Zyprexa and keep only of Seroquel. I spent __20____ minutes with the patient and/or on the patient floor today, greater than?50% of which was spent counseling/coordinating care. Reason for contiued inpatient stay Substantial Risk for: inability to function, rapid decompensation and med/psych decompensation
[2022-01-20 18:00] VITALS: BP 168/79; PULSE 67; RESP 17; TEMP 36.2; O2SAT 98
[2022-01-20] MEDS: Amitriptyline HCl 10 MG TABLET 20 MG PO (19:48)
[2022-01-20] MEDS: Gabapentin 400 MG CAPSULE 1200 MG PO (19:48)
[2022-01-20] MEDS: Sennosides/Docusate Sodium TABLET 2 TAB PO (19:49)
[2022-01-20] MEDS: Melatonin 3 MG TABLET 6 MG PO (19:49)
[2022-01-21 08:00] VITALS: BP 168/86; PULSE 74; RESP 20; TEMP 36.2; O2SAT 97
[2022-01-21] MEDS: Cholecalciferol (Vitamin D3) 25 MCG TABLET 50 MCG PO (08:17)
[2022-01-21] MEDS: Gabapentin 300 MG CAPSULE 900 MG PO ×2 (08:18→16:33)
[2022-01-21] MEDS: Magnesium Oxide 400 MG TABLET PO (08:19)
[2022-01-21] MEDS: Divalproex Sodium ER 250 MG TAB.ER.24H 1250 MG PO (08:19)
[2022-01-21] MEDS: Tamsulosin HCL 0.4 MG CAPSULE PO (08:19)
[2022-01-21] MEDS: Famotidine 20 MG TABLET PO (08:20)
[2022-01-21] MEDS: methADONE HCl 20 MG/2 ML ORAL.CONC 25 MG PO (08:20)
[2022-01-21] MEDS: Calcium + Vitamin D 250 MG TABLET 500 MG PO ×2 (08:20→20:40)
[2022-01-21] MEDS: Lidocaine 4 % Patch ADH..PATCH 2 PATCH TRANSDERMA (09:53)
[2022-01-21] MEDS: Acetaminophen 325 MG TABLET 650 MG PO (12:16)
--- NOTE | 2022-01-21 16:29 | P.PNPSI_ITS ---
Subjective Subjective Date of Service: 01/21/22 Reason For Visit: fall w head strike and LOC Subjective Notes: Conditional Voluntary Interim History: The nursing staff reported the patient has been pleasant and cooperative but he refused his Seroquel last night since he stated that he was too sleepy. Today we had a long conversation regarding compliance and he agreed to continue taking medications but he does not want to take the trazodone because it over-sedates him. Mental Status Exam Mental Status Exam Patient Appearance: Well Grooomed Patient Orientation: Person and Situation Level of Consciousness: Awake Patient Behavior: Cooperative Mood Description: Depressed Affect Description: Calm Patient Cognition Impaired: Yes Ability to Follow Directions: Good Speech Pattern: Clear Hallucinations: None Delusions: Not Present Thought Process: Linear Thought Content: positive for Circumstantial Judgement: Fair Diagnostics Vital Signs (24Hr): Vital Signs - 24 hr 01/20/22 18:00 01/21/22 08:00 Temperature 97.1 F 97.1 F Pulse Rate 67 74 Respiratory Rate 17 20 Blood Pressure 168/79 H 168/86 H Pulse Oximetry 98 97 Oxygen Delivery Method Room Air Room Air BMI result Body Mass Index 23.1 Labs Results: 01/10/22 12:35 01/10/22 12:35 Imaging Radiology Impressions: ITS Impressions Abdomen/Pelvis CT 01/10/22 14:46 IMPRESSION: Patchy parenchymal opacities in the right lower lobe medial segment and right middle lobe. Likely chronic inflammatory process but new since 2016. Acute infiltration or underlying infiltrative lesion is not excluded. No evidence of lung contusion seen. There is underlying emphysema. No acute intra-abdominal process seen. Moderate constipation. L2 compression fracture of indeterminate age likely new since 2016. Correlate with clinical history Cervical Spine CT 01/10/22 14:46 IMPRESSION: No acute intracranial process seen. No visible acute fracture, dislocation or subluxation seen in cervical spine. Chest CT 01/10/22 14:46 IMPRESSION: Patchy parenchymal opacities in the right lower lobe medial segment and right middle lobe. Likely chronic inflammatory process but new since 2016. Acute infiltration or underlying infiltrative lesion is not excluded. No evidence of lung contusion seen. There is underlying emphysema. No acute intra-abdominal process seen. Moderate constipation. L2 compression fracture of indeterminate age likely new since 2016. Correlate with clinical history Head CT 01/10/22 14:46 IMPRESSION: No acute intracranial process seen. No visible acute fracture, dislocation or subluxation seen in cervical spine. Chest X-Ray 01/10/22 16:11 IMPRESSION: Patchy airspace disease at right lung base, suspicious for pneumonia. Medications Medications Current Medications Acetaminophen (Acetaminophen 325 Mg Tablet) 650 mg PO TID PRN PRN Reason: Pain, Mild Last Admin: 01/21/22 12:16 Dose: 650 mg Al Hydroxide/Mg Hydroxide (Magnesium Hydrox/Alum Hydrox 30 Ml Oral.Susp) 30 ml PO Q6H PRN PRN Reason: Heartburn/Nausea Amitriptyline HCl (Amitriptyline Hcl 10 Mg Tablet) 20 mg PO BEDTIME [facility] Last Admin: 01/20/22 19:48 Dose: 20 mg Calcium Carbonate/Cholecalciferol (Calcium + Vitamin D 250 Mg Tablet) 500 mg PO BID [facility] Last Admin: 01/21/22 08:20 Dose: 500 mg Cyclobenzaprine HCl (Cyclobenzaprine Hcl 5 Mg Tablet) 5 mg PO BID PRN PRN Reason: Muscle Spasm Divalproex Sodium (Divalproex Sodium Er 250 Mg Tab.Er.24h) 1,250 mg PO DAILY [facility] Last Admin: 01/21/22 08:19 Dose: 1,250 mg Famotidine (Famotidine 20 Mg Tablet) 20 mg PO DAILY [facility] Last Admin: 01/21/22 08:20 Dose: 20 mg Gabapentin (Gabapentin 300 Mg Capsule) 900 mg PO BID@0900,1700 [facility] Last Admin: 01/21/22 08:18 Dose: 900 mg Gabapentin (Gabapentin 400 Mg Capsule) 1,200 mg PO BEDTIME [facility] Last Admin: 01/20/22 19:48 Dose: 1,200 mg Hydroxyzine HCl (Hydroxyzine Hcl 25 Mg Tablet) 25 mg PO Q6H PRN PRN Reason: Anxiety Last Admin: 01/18/22 20:41 Dose: 25 mg Ketorolac Tromethamine (Ketorolac Tromethamine 0.5% Op 3 Ml Drops) 1 drop EYE- BOTH BID [facility] Last Admin: 01/21/22 09:52 Dose: 1 drop Lidocaine (Lidocaine 4 % Patch Adh..Patch) 2 patch TRANSDERMA DAILY [facility] Last Admin: 01/21/22 09:53 Dose: 2 patch Magnesium Hydroxide (Milk Of Magnesia 30 Ml Oral.Susp) 30 ml PO DAILY PRN PRN Reason: Constipation Magnesium Oxide (Magnesium Oxide 400 Mg Tablet) 400 mg PO DAILY [facility] Last Admin: 01/21/22 08:19 Dose: 400 mg Melatonin (Melatonin 3 Mg Tablet) 6 mg PO BEDTIME [facility] Last Admin: 01/20/22 19:49 Dose: 6 mg Methadone HCl (Methadone Hcl 20 Mg/2 Ml Oral.Conc) 25 mg PO DAILY [facility] Last Admin: 01/21/22 08:20 Dose: 25 mg Naproxen (Naproxen 250 Mg Tablet) 250 mg PO BID PRN PRN Reason: Pain, Mild Last Admin: 01/13/22 18:02 Dose: 250 mg Nicotine (Nicotine 14 Mg Patch.Td24) 14 mg TRANSDERMA DAILY [facility] Last Admin: 01/21/22 08:22 Dose: Not Given Olanzapine (Olanzapine 2.5 Mg Tablet) 2.5 mg PO DAILY PRN PRN Reason: Anxiety Quetiapine Fumarate (Quetiapine Fumarate 100 Mg Tablet) 100 mg PO BID@0800,1700 [facility] Last Admin: 01/21/22 08:17 Dose: Not Given Quetiapine Fumarate (Quetiapine Fumarate 300 Mg Tablet) 300 mg PO BEDTIME [facility] Last Admin: 01/20/22 19:49 Dose: Not Given Senna/Docusate Sodium (Sennosides/Docusate Sodium Tablet) 2 tab PO BEDTIME [facility] Last Admin: 01/20/22 19:49 Dose: 2 tab Tamsulosin HCl (Tamsulosin Hcl 0.4 Mg Capsule) 0.4 mg PO DAILY [facility] Last Admin: 01/21/22 08:19 Dose: 0.4 mg Trazodone HCl (Trazodone Hcl 50 Mg Tablet) 50 mg PO BEDTIME PRN PRN Reason: Insomnia Last Admin: 01/19/22 21:46 Dose: 50 mg Trolamine Salicylate (Trolamine Salicylate 10 % Cream 85 Gm Tube) 1 appl TOPICAL QID PRN PRN Reason: back pain Vitamin D (Cholecalciferol (Vitamin D3) 25 Mcg Tablet) 50 mcg PO DAILY [facility] Last Admin: 01/21/22 08:17 Dose: 50 mcg Allergies Allergies Allergy/AdvReac Type Severity Reaction Status Date / Time No Known Allergies Allergy Unverified 02/16/20 15:59 [No Known Allergies*] Assessment & Plan Assessment & Plan (1) Intentional overdose: Status: Acute Code(s): T50.902A - Poisoning by unspecified drugs, medicaments and biological substances, intentional self-harm, initial encounter (2) Pneumonia: Status: Acute Code(s): J18.9 - Pneumonia, unspecified organism (3) Suicidal ideation: Status: Acute Code(s): R45.851 - Suicidal ideations (4) Bipolar disorder: Status: Acute Code(s): F31.9 - Bipolar disorder, unspecified Plan Elderly [place] male with a long history of bipolar disorder and opiate use disorder with several prior admissions into the emergency room for intentional overdose on opiates suicidal attempt. Currently he is stable but he was also diagnosed of pneumonia anti 1 Yo [place] right now. He has all his care at the [facility]. Plan 1. Gather collateral information. 2. Continue with Depakote gabapentin other mood stabilizers. 3. Add a low dose of Ativan p.r.n. anxiety. 4. Start Seroquel . 5. Start cross tapering of Zyprexa to Seroquel. Today he will discontinue Zyprexa and keep only of Seroquel. I spent ___20___ minutes with the patient and/or on the patient floor today, greater than?50% of which was spent counseling/coordinating care. Reason for contiued inpatient stay Substantial Risk for: inability to function, rapid decompensation and med/psych decompensation
[2022-01-21 18:00] VITALS: BP 132/69; PULSE 63; RESP 16; TEMP 36; O2SAT 96
[2022-01-21] MEDS: Gabapentin 400 MG CAPSULE 1200 MG PO (20:41)
[2022-01-21] MEDS: Amitriptyline HCl 10 MG TABLET 20 MG PO (20:42)
[2022-01-21] MEDS: Cyclobenzaprine HCl 5 MG TABLET PO (20:44)
[2022-01-21] MEDS: Sennosides/Docusate Sodium TABLET 2 TAB PO (21:34)
[2022-01-22] MEDS: Acetaminophen 325 MG TABLET 650 MG PO (05:54)
[2022-01-22 07:50] VITALS: BP 163/80; PULSE 69; RESP 18; TEMP 36; O2SAT 96
[2022-01-22] MEDS: Famotidine 20 MG TABLET PO (07:58)
[2022-01-22] MEDS: Cholecalciferol (Vitamin D3) 25 MCG TABLET 50 MCG PO (07:58)
[2022-01-22] MEDS: Tamsulosin HCL 0.4 MG CAPSULE PO (07:58)
[2022-01-22] MEDS: Divalproex Sodium ER 250 MG TAB.ER.24H 1250 MG PO (07:59)
[2022-01-22] MEDS: Gabapentin 300 MG CAPSULE 900 MG PO (07:59)
[2022-01-22] MEDS: Magnesium Oxide 400 MG TABLET PO (08:00)
[2022-01-22] MEDS: Calcium + Vitamin D 250 MG TABLET 500 MG PO (08:01)
[2022-01-22] MEDS: methADONE HCl 20 MG/2 ML ORAL.CONC 25 MG PO (08:02)
[2022-01-22] MEDS: Lidocaine 4 % Patch ADH..PATCH 2 PATCH TRANSDERMA (09:37)
[2022-01-22] MEDS: Nicotine 14 MG PATCH.TD24 TRANSDERMA (09:41)
--- NOTE | 2022-01-22 13:30 | HO.PSYCHPN ---
Subjective Subjective Reason For Visit: fall w head strike and LOC Diagnostics Vital Signs (24Hr): Vital Signs - 24 hr 01/21/22 18:00 01/22/22 07:50 Temperature 96.8 F 96.8 F Pulse Rate 63 69 Respiratory Rate 16 18 Blood Pressure 132/69 163/80 H Pulse Oximetry 96 96 Oxygen Delivery Method Room Air Room Air BMI result Body Mass Index 23.1 Labs Results: 01/10/22 12:35 01/10/22 12:35 Imaging Radiology Impressions: ITS Impressions Abdomen/Pelvis CT 01/10/22 14:46 IMPRESSION: Patchy parenchymal opacities in the right lower lobe medial segment and right middle lobe. Likely chronic inflammatory process but new since 2016. Acute infiltration or underlying infiltrative lesion is not excluded. No evidence of lung contusion seen. There is underlying emphysema. No acute intra-abdominal process seen. Moderate constipation. L2 compression fracture of indeterminate age likely new since 2016. Correlate with clinical history Cervical Spine CT 01/10/22 14:46 IMPRESSION: No acute intracranial process seen. No visible acute fracture, dislocation or subluxation seen in cervical spine. Chest CT 01/10/22 14:46 IMPRESSION: Patchy parenchymal opacities in the right lower lobe medial segment and right middle lobe. Likely chronic inflammatory process but new since 2016. Acute infiltration or underlying infiltrative lesion is not excluded. No evidence of lung contusion seen. There is underlying emphysema. No acute intra-abdominal process seen. Moderate constipation. L2 compression fracture of indeterminate age likely new since 2016. Correlate with clinical history Head CT 01/10/22 14:46 IMPRESSION: No acute intracranial process seen. No visible acute fracture, dislocation or subluxation seen in cervical spine. Chest X-Ray 01/10/22 16:11 IMPRESSION: Patchy airspace disease at right lung base, suspicious for pneumonia. Medications Medications Current Medications Acetaminophen (Acetaminophen 325 Mg Tablet) 650 mg PO TID PRN PRN Reason: Pain, Mild Last Admin: 01/22/22 05:54 Dose: 650 mg Al Hydroxide/Mg Hydroxide (Magnesium Hydrox/Alum Hydrox 30 Ml Oral.Susp) 30 ml PO Q6H PRN PRN Reason: Heartburn/Nausea Amitriptyline HCl (Amitriptyline Hcl 10 Mg Tablet) 20 mg PO BEDTIME ELISABET Last Admin: 01/21/22 20:42 Dose: 20 mg Calcium Carbonate/Cholecalciferol (Calcium + Vitamin D 250 Mg Tablet) 500 mg PO BID [facility] Last Admin: 01/22/22 08:01 Dose: 500 mg Cyclobenzaprine HCl (Cyclobenzaprine Hcl 5 Mg Tablet) 5 mg PO BID PRN PRN Reason: Muscle Spasm Last Admin: 01/21/22 20:44 Dose: 5 mg Divalproex Sodium (Divalproex Sodium Er 250 Mg Tab.Er.24h) 1,250 mg PO DAILY [facility] Last Admin: 01/22/22 07:59 Dose: 1,250 mg Famotidine (Famotidine 20 Mg Tablet) 20 mg PO DAILY [facility] Last Admin: 01/22/22 07:58 Dose: 20 mg Gabapentin (Gabapentin 300 Mg Capsule) 900 mg PO BID@0900,1700 [facility] Last Admin: 01/22/22 07:59 Dose: 900 mg Gabapentin (Gabapentin 400 Mg Capsule) 1,200 mg PO BEDTIME [facility] Last Admin: 01/21/22 20:41 Dose: 1,200 mg Hydroxyzine HCl (Hydroxyzine Hcl 25 Mg Tablet) 25 mg PO Q6H PRN PRN Reason: Anxiety Last Admin: 01/18/22 20:41 Dose: 25 mg Ketorolac Tromethamine (Ketorolac Tromethamine 0.5% Op 3 Ml Drops) 1 drop EYE-BOTH BID [facility] Last Admin: 01/22/22 08:02 Dose: 1 drop Lidocaine (Lidocaine 4 % Patch Adh..Patch) 2 patch TRANSDERMA DAILY [facility] Last Admin: 01/22/22 09:37 Dose: 2 patch Magnesium Hydroxide (Milk Of Magnesia 30 Ml Oral.Susp) 30 ml PO DAILY PRN PRN Reason: Constipation Magnesium Oxide (Magnesium Oxide 400 Mg Tablet) 400 mg PO DAILY [facility] Last Admin: 01/22/22 08:00 Dose: 400 mg Melatonin (Melatonin 3 Mg Tablet) 6 mg PO BEDTIME [facility] Last Admin: 01/21/22 22:16 Dose: Not Given Methadone HCl (Methadone Hcl 20 Mg/2 Ml Oral.Conc) 25 mg PO DAILY [facility] Last Admin: 01/22/22 08:02 Dose: 25 mg Naproxen (Naproxen 250 Mg Tablet) 250 mg PO BID PRN PRN Reason: Pain, Mild Last Admin: 01/13/22 18:02 Dose: 250 mg Nicotine (Nicotine 14 Mg Patch.Td24) 14 mg TRANSDERMA DAILY [facility] Last Admin: 01/22/22 09:41 Dose: 14 mg Olanzapine (Olanzapine 2.5 Mg Tablet) 2.5 mg PO DAILY PRN PRN Reason: Anxiety Quetiapine Fumarate (Quetiapine Fumarate 100 Mg Tablet) 100 mg PO BID@0800,1700 [facility] Last Admin: 01/22/22 08:01 Dose: Not Given Quetiapine Fumarate (Quetiapine Fumarate 300 Mg Tablet) 300 mg PO BEDTIME [facility] Last Admin: 01/21/22 20:47 Dose: Not Given Senna/Docusate Sodium (Sennosides/Docusate Sodium Tablet) 2 tab PO BEDTIME [facility] Last Admin: 01/21/22 21:34 Dose: 2 tab Tamsulosin HCl (Tamsulosin Hcl 0.4 Mg Capsule) 0.4 mg PO DAILY [facility] Last Admin: 01/22/22 07:58 Dose: 0.4 mg Trazodone HCl (Trazodone Hcl 50 Mg Tablet) 50 mg PO BEDTIME PRN PRN Reason: Insomnia Last Admin: 01/19/22 21:46 Dose: 50 mg Trolamine Salicylate (Trolamine Salicylate 10 % Cream 85 Gm Tube) 1 appl TOPICAL QID PRN PRN Reason: back pain Vitamin D (Cholecalciferol (Vitamin D3) 25 Mcg Tablet) 50 mcg PO DAILY [facility] Last Admin: 01/22/22 07:58 Dose: 50 mcg Allergies Allergies Allergy/AdvReac Type Severity Reaction Status Date / Time No Known Allergies Allergy Unverified 02/16/20 15:59 [No Known Allergies*] Assessment & Plan Assessment & Plan (1) Intentional overdose: Status: Acute Code(s): T50.902A - Poisoning by unspecified drugs, medicaments and biological substances, intentional self-harm, initial encounter (2) Pneumonia: Status: Acute Code(s): J18.9 - Pneumonia, unspecified organism (3) Suicidal ideation: Status: Acute Code(s): R45.851 - Suicidal ideations (4) Bipolar disorder: Status: Acute Code(s): F31.9 - Bipolar disorder, unspecified Plan Elderly [place] male with a long history of bipolar disorder and opiate use disorder with several prior admissions into the emergency room for intentional overdose on opiates suicidal attempt. Currently he is stable but he was also diagnosed of pneumonia anti 1 Yo Dax right now. He [facility] all his care at the [facility]. Plan 1. Gather collateral information. 2. Continue with Depakote gabapentin other mood stabilizers. 3. Add a low dose of Ativan p.r.n. anxiety. 4. Start Seroquel . 5. Start cross tapering of Zyprexa to Seroquel. Today he will discontinue Zyprexa and keep only of Seroquel. I spent minutes with the patient and/or on the patient floor today, greater than?50% of which was spent counseling/coordinating care.
--- NOTE | 2022-01-22 13:42 | P.DS_ITS ---
DS: Providers Provider Date of Service: 01/22/22 Date of admission: 01/13/22 19:59 Date of discharge: 01/22/22 Primary care physician: Yulisa Physician Attending physician on discharge: Tavares Dumont DS: Diagnosis Discharge Diagnosis (1) Intentional overdose: Status: Acute (2) Pneumonia: Status: Acute (3) Suicidal ideation: Status: Acute (4) Bipolar disorder: Status: Acute DS: Medications Discharge Medications Home Medications: Home Medications Medication Instructions Recorded Confirmed acetaminophen 500 mg tablet 1,000 mg PO TID PRN Pain, Mild 01/11/22 01/11/22 alendronate 70 mg tablet 70 mg PO QWEEK 01/11/22 01/11/22 amitriptyline 10 mg tablet 20 mg PO BEDTIME 01/11/22 01/11/22 calcium carbonate 500 mg-vitamin 1 tab PO BID 01/11/22 01/11/22 D3 3.125 mcg (125 unit) tablet cholecalciferol (vitamin D3) 50 50 mcg PO DAILY 01/11/22 01/11/22 mcg (2,000 unit) tablet cyclobenzaprine 5 mg tablet 5 mg PO BID PRN Muscle Spasm 01/11/22 01/11/22 diclofenac sodium 1 % topical gel 2 g topical QID PRN osteoarthritis 01/11/22 01/11/22 divalproex 250 mg tablet,extended 1,250 mg PO DAILY 01/11/22 01/11/22 release 24 hr (Depakote ER) famotidine 20 mg tablet 20 mg PO DAILY 01/11/22 01/11/22 gabapentin 300 mg capsule 1,200 mg PO BEDTIME 01/11/22 01/11/22 gabapentin 300 mg capsule 900 mg PO BID@0900,1700 01/11/22 01/11/22 ketorolac 0.5 % eye drops 1 drp ophthalmic (eye) BID 01/11/22 01/11/22 lidocaine 5 % topical patch 2 patch topical DAILY 01/11/22 01/11/22 magnesium oxide 420 mg tablet 420 mg PO DAILY 01/11/22 01/11/22 melatonin 5 mg tablet 5 mg PO BEDTIME PRN Sleep 01/11/22 01/11/22 meloxicam 7.5 mg tablet 7.5 mg PO DAILY PRN Pain, Mild 01/11/22 01/11/22 methadone 10 mg/mL oral concentrate 25 mg PO DAILY 01/11/22 01/11/22 nicotine 14 mg/24 hr daily 1 patch transdermal DAILY 01/11/22 01/11/22 transdermal patch olanzapine 2.5 mg tablet 2.5 mg PO DAILY PRN Anxiety 01/11/22 01/11/22 olanzapine 7.5 mg tablet 7.5 mg PO BEDTIME 01/11/22 01/11/22 quetiapine 25 mg tablet 12.5 mg PO TID PRN Anxiety 01/11/22 01/11/22 sennosides 8.6 mg-docusate sodium 2 tab-cap PO BEDTIME 01/11/22 01/11/22 50 mg tablet (Senna-S) tamsulosin 0.4 mg capsule 0.4 mg PO DAILY 01/11/22 01/11/22 Mental Status Exam Mental Status Exam Patient Appearance: Well Grooomed Patient Orientation: Person and Situation Level of Consciousness: Awake Patient Behavior: Cooperative Mood Description: Constricted Affect Description: Labile Patient Cognition Impaired: Yes Ability to Follow Directions: Good Speech Pattern: Clear Hallucinations: None Delusions: Not Present Thought Process: Linear Thought Content: positive for Intact Judgement: Fair Data Data Completed and Pending Completed studies during hospitalization [Text1]: 01/10/22 12:38 Blood - Venous Blood Culture - Final No growth after 5 days. 01/10/22 12:39 Blood - Venous Blood Culture - Final No growth after 5 days. Imaging Diagnostic Imaging Impressions Abdomen/Pelvis CT 01/10/22 14:46 IMPRESSION: Patchy parenchymal opacities in the right lower lobe medial segment and right middle lobe. Likely chronic inflammatory process but new since 2016. Acute infiltration or underlying infiltrative lesion is not excluded. No evidence of lung contusion seen. There is underlying emphysema. No acute intra-abdominal process seen. Moderate constipation. L2 compression fracture of indeterminate age likely new since 2016. Correlate with clinical history Cervical Spine CT 01/10/22 14:46 IMPRESSION: No acute intracranial process seen. No visible acute fracture, dislocation or subluxation seen in cervical spine. Chest CT 01/10/22 14:46 IMPRESSION: Patchy parenchymal opacities in the right lower lobe medial segment and right middle lobe. Likely chronic inflammatory process but new since 2016. Acute infiltration or underlying infiltrative lesion is not excluded. No evidence of lung contusion seen. There is underlying emphysema. No acute intra-abdominal process seen. Moderate constipation. L2 compression fracture of indeterminate age likely new since 2016. Correlate with clinical history Head CT 01/10/22 14:46 IMPRESSION: No acute intracranial process seen. No visible acute fracture, dislocation or subluxation seen in cervical spine. Chest X-Ray 01/10/22 16:11 IMPRESSION: Patchy airspace disease at right lung base, suspicious for pneumonia. DS: Summary Hospital Course Hospital Course: The patient was admitted for intentional overdose of opioids in the leg it suicidal attempt. The patient carries a diagnosis of bipolar disorder and opiate use disorder. Please see the HPI of the admission note for further details. On admission the patient was pleasant and cooperative, he reports that he was feeling depressed and he requested Xanax that was discontinuing the [facility] due to h is abuse of opioids. We review his chart and according to old charts and previous prescriber son crisis assessment, the patient has intentionally overdosed several times and had short admissions into the hospital. While he was admitted, the patient reported dysphoria and anxiety and requested benzos and we used a low dose of Ativan p.r.n. that help him. He was taking several mood stabilizers but it was clear that Zyprexa was not helping it. We discussed risks, benefits, side-effects and alternatives and he agreed to cross taper from Zyprexa 7.5 mg p.o. q.h.s. to Seroquel titrated up to 100 mg p.o. b.i.d. and 300 mg p.o. q.h.s. with no side effects, good tolerability and good effectiveness. Since the patient denies active suicidal thoughts and he was feeling more comfortable discharge planning was discussed. We also provided with a dose of Narcan according to protocol. Time spent discussing smoking cessation with patient: 3 to 10 minutes Status at Discharge Functional status at discharge: independent ambulation Overall status at discharge: patient is back to baseline Time Spent with Patient Time attestation: Total time spent providing and/or coordinating discharge services: Time spent: Less than 30 minutes Discharge Plan Discharge Patient Disposition: Home Health Service Discharge Diagnosis: Bipolar disorder Referrals: [facility] [Other] - 01/29/22 2:30 pm (Your next primary care appointment with Dr Kay at [facility] is 01/29/22 at 2:30pm. You also have a audiology appointment in [facility] at 10am and an x-ray appointment in [facility] at 9:30am that day. You have a dermatology appointment scheduled for 01/31/22 at the [facility] in [place] at 1PM, and Neurology appointment on 02/10/22 at 2Pm also in [place]. For transportation to appointments the [facility] offers transportation services by calling the main number at the [facility] at [phone] and entering extension [phone]. Please note that you must give 5 days notice for transportation needs.) Dr Torre [facility] [Other] - 01/28/22 10:30 am (Yo ur next appointment with Dr Torre for psychiatry is scheduled for 01/28/22 at 10:30am. ) Dr Aditi Ambriz [facility] [Other] - 01/28/22 11:00 am (Your next appointment with your therapist Dr Ambriz is 01/28/22 at 11AM.) [facility] [Other] - 01/22/22 (Your Home Health Aide hours have been increased to 20 hours per week and your nurse will visit once per week. Services will resume at time of discharge and [facility] has authorized increased [employer] hours with [facility]. ) [facility] [Other] - 3-5 Days (A referral was placed with [facility] for homemaking and Home delivered meals. [facility] will contact you for home visit following discharge. ) [facility] [Other] - 01/23/22 (Resume methadone dosing at methadone clinic. You will be provided with a last dose letter at the time of discharge. ) Discharge Medications: New quetiapine 300 mg Tablet 300 mg PO BEDTIME 30 Days Qty: 30 0RF quetiapine 100 mg Tablet 100 mg PO BID@0800,1700 30 Days Qty: 60 0RF methadone [Methadose] 10 mg/mL Concentrate 25 mg PO DAILY 30 Days Qty: 75 0RF Rx Instructions: Partial Fill upon patient request. trolamine salicylate [Arthricream] 10 % Cream 1 appl topical QID PRN (Reason: back pain) 30 Days Qty: 1 0RF divalproex 250 mg Tablet Extended Release 24 Hr 1,250 mg PO DAILY 30 Days Qty: 150 0RF naloxone [Narcan] 4 mg/actuation spray,non-aerosol 4 mg intranasal Q3M PRN (Reason: opioid overdose) Qty: 2 0RF Rx Instructions: spray 1 dose into ONE nostril; alternate nostrils w each dose until help arrives Continued magnesium oxide 420 mg Tablet 420 mg PO DAILY 30 Days Qty: 30 0RF alendronate 70 mg Tablet 70 mg PO QWEEK 30 Days Qty: 5 0RF sennosides-docusate sodium [Senna-S] 8.6-50 mg Tablet 2 tab-cap PO BEDTIME 30 Days Qty: 60 0RF acetaminophen 500 mg Tablet 1,000 mg PO TID PRN (Reason: Pain, Mild) 30 Days Qty: 60 0RF ketorolac 0.5 % Drops 1 drp OPHTHALMIC (EYE) BID 30 Days Qty: 1 0RF meloxicam 7.5 mg Tablet 7.5 mg PO DAILY PRN (Reason: Pain, Mild) 30 Days Qty: 30 0RF famotidine 20 mg Tablet 20 mg PO DAILY 30 Days Qty: 30 0RF tamsulosin 0.4 mg Capsule 0.4 mg PO DAILY 30 Days Qty: 30 0RF amitriptyline 10 mg Tablet 20 mg PO BEDTIME 30 Days Qty: 60 0RF lidocaine 5 % Adhesive Patch,Medicated 2 patch TOPICAL DAILY 30 Days Qty: 60 0RF Rx Instructions: leave on most painful area for up to 12 hrs gabapentin 300 mg Capsule 900 mg PO BID@0900,1700 30 Days Qty: 180 0RF gabapentin 300 mg Capsule 1,200 mg PO BEDTIME 30 Days Qty: 120 0RF cyclobenzaprine 5 mg Tablet 5 mg PO BID PRN (Reason: Muscle Spasm) 30 Days Qty: 60 0RF calcium carbonate-vitamin D3 500 mg-3.125 mcg (125 unit) Tablet 1 tab PO BID 30 Days Qty: 60 0RF diclofenac sodium 1 % Gel 2 g TOPICAL QID PRN (Reason: osteoarthritis) 30 Days Qty: 1 0RF Rx Instructions: apply to single elbow, wrist or hand; for hand includes palm/fingers/back of hand melatonin 5 mg Tablet 5 mg PO BEDTIME PRN (Reason: Sleep) 30 Days Qty: 30 0RF cholecalciferol (vitamin D3) 50 mcg (2,000 unit) Tablet 50 mcg PO DAILY 30 Days Qty: 30 0RF Changed nicotine 14 mg/24 hr Patch 24 Hour 30 patch TRANSDERMAL DAILY 30 Days Qty: 30 0RF Discontinued quetiapine 25 mg Tablet 12.5 mg PO TID PRN (Reason: Anxiety) olanzapine 2.5 mg Tablet 2.5 mg PO DAILY PRN (Reason: Anxiety) olanzapine 7.5 mg Tablet 7.5 mg PO BEDTIME methadone 10 mg/mL Concentrate 25 mg PO DAILY divalproex [Depakote ER] 250 mg Tablet Extended Release 24 Hr 1,250 mg PO DAILY Discharge Orders: Discharge Order (Routine); Ordered 01/22/22 Ordered By: Tavares Dumont Diet: Advance to usual diet Activity on Discharge: As tolerated Stand Alone Forms: Patient Portal Discharge page, Community Support Care Plan Goals: Care plan goals achieved in this admission Health Concerns: Continue treatment by outpatient providers in the [facility] Plan of Treatment: Continue treatment as an outpatient Assessment: Elderly [place] male with a long history of bipolar disorder and opioid use disorder admitted after an intentional overdose of opiates in a suicidal attempt. At this moment safe to be discharged in the community.
== END 2022-01-22 15:30 | disposition home health service (06) | DRG 885 ==
LOC: HO.ED 01-11 01:56 → HO.PGERI 01-13 20:16
PROVIDERS: Physician Assistant Medical; Registered Nurse; Admitting Provider Psychiatry & Neurology Psychiatry; Emergency Provider Student in an Organized Health Care Education/Training Program; Visit Provider Psychiatry & Neurology Psychiatry
DX: F31.9 Bipolar disorder, unspecified (principal); J18.9 Pneumonia, unspecified organism; F11.20 Opioid dependence, uncomplicated; M54.9 Dorsalgia, unspecified; F17.210 Nicotine dependence, cigarettes, uncomplicated; Z20.822 Contact with and (suspected) exposure to COVID-19; Z91.51 Personal history of suicidal behavior; Z71.6 Tobacco abuse counseling; Z79.899 Other long term (current) drug therapy
CPT/HCPCS: 36415; 70450; 71046; 71260; 72125; 74177; 80053; 80061; 80143; 80164; 80179; 80307; 81003; 82077; 82140; 82550; 82607; 82746; 82947; 83036; 83605; 83690; 83735; 83880; 84439; 84443; 84484; 85025; 85610; 87040; 87635; 93005; 96360; 96361; 99285

== ENCOUNTER 2022-11-18 13:12 | Inpatient (IN) | payer OTHER, MEDICARE, SELFPAY ==
--- NOTE | ~2022-11-18 | CT_ITS ---
EXAMINATION: CT HEAD WITHOUT CONTRAST CLINICAL INFORMATION: Head trauma. Fall. COMPARISON: CT head from 01/10/2022 TECHNIQUE: Contiguous axial imaging was performed from the skull base to vertex without intravenous administration of contrast. This CT examination was performed using dose optimization techniques as appropriate, variously including the following: *Automated exposure control. *Adjustment of mA and/or kV according to patient size (this includes techniques or standardized protocols for targeted exams where dose is matched to indication/reason for exam; i.e. extremities or head). *Use of iterative reconstruction technique. DLP: 760 mGy-cm FINDINGS: There is no evidence of acute intracranial hemorrhage or edematous territorial infarction. Basal ganglia mineralization. Chronic lacunar infarct of the left caudate head. No new loss of chacon-white matter differentiation. Scattered and partially confluent hypoattenuation in the periventricular and deep white matter are consistent with moderate microangiopathy. Proportional prominence of the ventricles and sulcal spaces without evidence of obstructive hydrocephalus. No abnormal mass effect or midline shift. No extra-axial fluid collections. Calcific atherosclerotic disease of the intracranial internal carotid and vertebral arteries. No hyperdense vessel sign. No acute soft tissue or osseous abnormalities. Moderate mucosal thickening of the paranasal sinuses. The mastoid air cells and middle ear cavities are clear. Bilateral lens extractions. CT/CT head/brain wo IV con IMPRESSION: 1. No evidence of acute intracranial hemorrhage or edematous territorial infarction. 2. Moderate underlying microangiopathy and generalized cerebral volume loss. Chronic lacunar infarct of the left caudate head.
--- NOTE | ~2022-11-18 | XR_ITS ---
EXAMINATION: XR CHEST CLINICAL INFORMATION: Altered mental status COMPARISON: Chest portable 01/10/2022, 02/21/2019 TECHNIQUE: Portable AP upright view of the chest was obtained. 1501 hour FINDINGS: EKG leads project over the chest. There is slight patchy opacity in the right lung base, suspicious for pneumonia. The cardiomediastinal silhouette is stable. There are no pleural effusions. Moderate diffuse osteopenia. Punctate calcification adjacent to the right humeral head is consistent with calcific tendinitis. XR/XR chest 1V IMPRESSION: Patchy airspace disease in the right lung base, suspicious for pneumonia.
--- NOTE | 2022-11-18 13:20 | ECG_ITS ---
Test Reason : overdose Blood Pressure : / mmHG Vent. Rate : 081 BPM Atrial Rate : 081 BPM P-R Int : 174 ms QRS Dur : 076 ms QT Int : 416 ms P-R-T Axes : 057 026 048 degrees QTc Int : 483 ms Normal sinus rhythm Prolonged QT Abnormal ECG When compared to the previous EKG of 10 jan 2022, QT prolonged. Referred By: Gregg Baxter Electronically Signed By:SELVIN RICHARDSON
[2022-11-18 13:26] VITALS: BP 121/72; BP 73/49; PULSE 100; PULSE 88; RESP 16; TEMP 36.8; O2SAT 95; O2SAT 97; BMI 21.9
[2022-11-18 13:28] LABS: Glucose, Whole Blood 88 mg/dL (60-115)
--- NOTE | 2022-11-18 13:30 | ED_ITS ---
HPI - Overdose General Chief Complaint: Overdose Stated Complaint: STROKE ALERT PER EMS Time Seen by Provider: 11/18/22 13:20 Source: patient and EMS Mode of arrival: EMS Limitations: no limitations History of Present Illness HPI Narrative: 72-year-old male who is brought to emergency department by ambulance for ev aluation of altered level consciousness. Initially the patient was unable to give a history. According to the paramedics, the patient got on to a bus. Shortly after sitting down he slumped over became unconscious. When the paramedics got the scene the patient was unresponsive to painful stimuli and was hypotensive with a blood pressure of 72. Patient was then brought to emergency department. On arrival, he was unresponsive to painful stimuli at a very low respiratory rate, he had pinpoint pupils. He was given intranasal Narcan 4 mg x 2 doses and while the nurse was inserting the Richardson catheter he woke up and was able to talk. He did tell me that he used intranasal heroin prior to getting out to the bus. Related Data Home Medications Medication Instructions Recorded Confirmed alendronate 70 mg tablet 70 mg PO MO@0900 11/18/22 11/18/22 amitriptyline 10 mg tablet 10 mg PO BEDTIME 11/18/22 11/18/22 famotidine 20 mg tablet 20 mg PO DAILY@0630 11/18/22 11/18/22 quetiapine 200 mg tablet 200 mg PO BEDTIME 11/18/22 11/18/22 sennosides 8.6 mg-docusate sodium 2 tab-cap PO BEDTIME PRN 11/18/22 11/18/22 50 mg tablet (Senna with Docusate Constipation Sodium) Previous Rx's Medication Instructions Recorded acetaminophen 500 mg tablet 1,000 mg PO TID PRN Pain, Mild 30 01/22/22 days #60 tabs calcium carbonate 500 mg-vitamin 1 tab PO BID 30 days #60 tabs 01/22/22 D3 3.125 mcg (125 unit) tablet cyclobenzaprine 5 mg tablet 5 mg PO BID PRN Muscle Spasm 30 01/22/22 days #60 tabs diclofenac sodium 1 % topical gel 2 g topical QID PRN osteoarthritis 01/22/22 30 days #1 g divalproex 250 mg tablet,extended 1,250 mg PO DAILY 30 days #150 tabs 01/22/22 release 24 hr gabapentin 300 mg capsule 1,200 mg PO BEDTIME 30 days #120 01/22/22 caps gabapentin 300 mg capsule 900 mg PO BID@0900,1700 30 days 01/22/22 #180 caps magnesium oxide 420 mg tablet 420 mg PO DAILY 30 days #30 tabs 01/22/22 melatonin 5 mg tablet 5 mg PO BEDTIME PRN Sleep 30 days 01/22/22 #30 tabs meloxicam 7.5 mg tablet 7.5 mg PO DAILY PRN Pain, Mild 30 01/22/22 days #30 tabs methadone 10 mg/mL oral 25 mg (2.5 mL) PO DAILY 30 days 01/22/22 concentrate (Methadose) #75 mL Allergies Allergy/AdvReac Type Severity Reaction Status Date / Time No Known Allergies Allergy Unverified 02/16/20 15:59 [No Known Allergies*] [facility] Social History Social History Household Members Other:: Son Housing: House Do you presently have visiting nurse or other home services: Yes Alcohol intake: current Alcohol intake frequency: does not drink Patient Tobacco Use Status: Current everyday Tobacco user Tobacco use type: Cigarette Cigarette Packs Per Day: 0.5 Cigarettes Per Day: 10.0 Smoked in Last 30 Days: Yes e-Cigarette/Vaping Use: Never Used Second Hand Smoke Exposure: No Use of substances other than those prescribed or required for medical reasons: Yes Substance Use Type: Heroin Substance Use Frequency: Chronic Longstanding Substance Use Frequency Other:: last used today Last Used Substance: Just Prior to Admission Any prior treatment program specific to substance use: No Advance Directives: No Advance Directives Information Provided: No Healthcare Proxy: No Guardian: No service: Yes Sexual orientation: Straight/Heterosexual Physical Exam Vital Signs: Vital Signs: Last Vital Signs Temp 97.8 F 11/18/22 19:22 Pulse 72 11/18/22 19:22 Resp 18 11/18/22 19:22 BP 154/78 H 11/18/22 19:22 Pulse Ox 97 11/18/22 19:22 O2 Del Method Room Air 11/18/22 19:22 Oxygen Flow Rate 2 11/18/22 13:26 BMI result Body Mass Index 21.9 Medications Administered Discontinued Medications Generic Name Dose Route Start Last Admin Trade Name Freq PRN Reason Stop Dose Admin Sodium Chloride 1,000 mls @ 999 mls/hr 11/18/22 13:20 11/18/22 15:04 Ns IV 11/18/22 14:20 Infused .Q1H1M STA Infusion Naloxone HCl 4 mg 11/18/22 13:20 11/18/22 13:37 Naloxone Hcl Nasal 4 Mg [place] NOSTRILALT 11/18/22 13:21 4 mg ONCE ONE Administration Naloxone HCl 4 mg 11/18/22 13:20 11/18/22 13:37 Naloxone Hcl Nasal 4 Mg [place] NOSTRILALT 11/18/22 13:21 4 mg ONCE ONE Administration Medical Decision Making Medical Decision Making MDM Narrative: 72-year-old male who is brought to emergency department by ambulance for evaluation of altered level consciousness. On arrival, he was unresponsive to painful stimuli at a very low respiratory rate, he had pinpoint pupils. He was given intranasal Narcan 4 mg x 2 doses and while the nurse was inserting the Richardson catheter he woke up and was able to talk. Patient admits to using i ntranasal heroin. Labs, EKG ordered 1604: The patient did not experience any more episodes of narcosis. He did report to the nurse that he intentionally trying to harm himself by using heroin. Patient is waiting for SUDE evaluation by care team and also evaluation for suicidal ideation/self-harm. 1901: Start physician observation: Patient was evaluated by care team and the following was obtained: The patient has been thinking about killing himself and does admit to daily heroin use since 1971. He told the care team that he did try to kill himself by using heroin today. Care team believes that the patient feels suicidal around his birthday and today is the patient's birthday. Patient will be placed on a Section 12 The patient be placed in physician observation and kept in the emergency department or Behavioral Health Unit until appropriate disposition can be obtained. 2024: Physician observation continued: At the end of my shift, patient's care was turned over to my colleague, Dr. Sultana Cassidy. Differential Diagnosis Differential diagnosis includes but is not limited to stroke, electrolyte abnormality, overdose, Admission/Observation Consideration of admission/observation: Escalation of care including admission/observation considered Lab Data [facility] Lab Attestation statement: I reviewed the patient's lab results. My interpretation patient's laboratory evaluation is as follows: Anemia with an H&H of 11 34. This is chronic. PT/INR is normal. Urine intoxicated was positive for opiates and fentanyl. The patient will be kept on the cardiac and O2 saturation monitor for at least 2 hours to make sure that he does not go into narcosis again. I did order a care team SUDE exam as well 11/18/22 13:59 11/18/22 13:59 Labs: Lab Results 11/18/22 11/18/22 11/18/22 Range/Units 13:15 13:17 13:59 WBC 8.4 (4.8-10.8) X10*3/uL RBC 3.98 L (4.60-5.80) X10*6/uL Hgb 11.4 L (14.0-18.0) g/dl Hct 34.8 L (42.0-52.0) % MCV 87.4 (80.0-98.0) fL MCH 28.6 (27.0-33.0) pg MCHC 32.8 (31.0-36.0) g/dl RDW 15.2 (11.0-16.0) % Plt Count 217 (160-400) X10*3/uL MPV 9.5 (9.4-12.4) fL Immature Gran % (Auto) 0.4 (0.0-0.4) % Neut % (Auto) 49.2 (45-73) % Lymph % (Auto) 40.0 (20-40) % [place] % (Auto) 8.3 (2-11) % Eos % (Auto) 1.7 (0-4) % Baso % (Auto) 0.4 (0-2) % Lymph # (Auto) 3.4 (1.2-4.9) X10*3/uL [place] # (Auto) 0.7 (0.1-1.2) X10*3/uL Eos # (Auto) 0.1 (0.0-0.4) X10*3/uL Baso # (Auto) 0.0 (0.0-0.2) X10*3/uL Abs Immat Gran (auto) 0.03 (0.00-0.03) X10*3/uL Absolute Neuts (auto) 4.2 (2.0-8.3) x10*3/uL Absolute Nucleated RBC 0.000 (0.0-0.012) X10*3/uL Nucleated RBC % (auto) 0.0 (0.0-0.2) /100WBC Whole Blood PT 13.1 (11.1-13.5) sec Whole Blood INR 1.1 (0.9-1.1) Sodium (135-145) mmol/L Potassium (3.3-5.1) mmol/L Chloride (96-108) mmol/L Carbon Dioxide (22-29) mmol/L Anion Gap (12-20) BUN (9-16) mg/dL Creatinine (0.5-1.4) mg/dL Estim Creat Clear Calc Estimated GFR POC Glucose 88 (60-115) mg/dL Random Glucose (60-115) mg/dL Calcium (8.4-10.2) mg/dL Total Bilirubin (0.0-1.0) mg/dL AST (5-37) U/L ALT (0-40) U/L Alkaline Phosphatase (39-117) U/L Total Protein (6.5-8.0) g/dL Albumin (3.5-5.0) g/dL Lipase (8-78) U/L Urine Opiates Screen (Not Detect) Urine Fentanyl Screen (Not Detect) Ur Barbiturates Screen (Not Detect) Ur Phencyclidine Scrn (Not Detect) Ur Amphetamines Screen (Not Detect) U Benzodiazepines Scrn (Not Detect) Urine Cocaine Screen (Not Detect) U Marijuana (THC) Screen (Not Detect) Ethyl Alcohol mg/dL COVID-19 (RON[facility]IE) (Negative) COVID-19 Clin Com 11/18/22 11/18/22 11/18/22 Range/Units 13:59 13:59 14:08 WBC (4.8-10.8) X10*3/uL RBC (4.60-5.80) X10*6/uL Hgb (14.0-18.0) g/dl Hct (42.0-52.0) % MCV (80.0-98.0) fL MCH (27.0-33.0) pg MCHC (31.0-36.0) g/dl RDW (11.0-16.0) % Plt Count (160-400) X10*3/uL MPV (9.4-12.4) fL Immature Gran % (Auto) (0.0-0.4) % Neut % (Auto) (45-73) % Lymph % (Auto) (20-40) % [place] % (Auto) (2-11) % Eos % (Auto) (0-4) % Baso % (Auto) (0-2) % Lymph # (Auto) (1.2-4.9) X10*3/uL [place] # (Auto) (0.1-1.2) X10*3/uL Eos # (Auto) (0.0-0.4) X10*3/uL Baso # (Auto) (0.0-0.2) X10*3/uL Abs Immat Gran (auto) (0.00-0.03) X10*3/uL Absolute Neuts (auto) (2.0-8.3) x10*3/uL Absolute Nucleated RBC (0.0-0.012) X10*3/uL Nucleated RBC % (auto) (0.0-0.2) /100WBC Whole Blood PT (11.1-13.5) sec Whole Blood INR (0.9-1.1) Sodium 141 (135-145) mmol/L Potassium 3.9 (3.3-5.1) mmol/L Chloride 110 H (96-108) mmol/L Carbon Dioxide 23 (22-29) mmol/L Anion Gap 12 (12-20) BUN 22 H (9-16) mg/dL Creatinine 0.83 (0.5-1.4) mg/dL Estim Creat Clear Calc 61.9 Estimated GFR > 60 POC Glucose (60-115) mg/dL Random Glucose 79 (60-115) mg/dL Calcium 9.6 D (8.4-10.2) mg/dL Total Bilirubin 0.5 (0.0-1.0) mg/dL AST 16 (5-37) U/L ALT 8 (0-40) U/L Alkaline Phosphatase 50 (39-117) U/L Total Protein 7.5 (6.5-8.0) g/dL Albumin 4.0 (3.5-5.0) g/dL Lipase 5 L (8-78) U/L Urine Opiates Screen POSITIVE H (Not Detect) Urine Fentanyl Screen POSITIVE H (Not Detect) Ur Barbiturates Screen Not Detected (Not Detect) Ur Phencyclidine Scrn Not Detected (Not Detect) Ur Amphetamines Screen Not Detected (Not Detect) U Benzodiazepines Scrn Not Detected (Not Detect) Urine Cocaine Screen Not Detected (Not Detect) U Marijuana (THC) Screen Not Detected (Not Detect) Ethyl Alcohol < 10 mg/dL COVID-19 (RONNIE) (Negative) COVID-19 Clin Com 11/18/22 Range/Units 20:00 WBC (4.8-10.8) X10*3/uL RBC (4.60-5.80) X10*6/uL Hgb (14.0-18.0) g/dl Hct (42.0-52.0) % MCV (80.0-98.0) fL MCH (27.0-33.0) pg MCHC (31.0-36.0) g/dl RDW (11.0-16.0) % Plt Count (160-400) X10*3/uL MPV (9.4-12.4) fL Immature Gran % (Auto) (0.0-0.4) % Neut % (Auto) (45-73) % Lymph % (Auto) (20-40) % [place] % (Auto) (2-11) % Eos % (Auto) (0-4) % Baso % (Auto) (0-2) % Lymph # (Auto) (1.2-4.9) X10*3/uL [place] # (Auto) (0.1-1.2) X10*3/uL Eos # (Auto) (0.0-0.4) X10*3/uL Baso # (Auto) (0.0-0.2) X10*3/uL Abs Immat Gran (auto) (0.00-0.03) X10*3/uL Absolute Neuts (auto) (2.0-8.3) x10*3/uL Absolute Nucleated RBC (0.0-0.012) X10*3/uL Nucleated RBC % (auto) (0.0-0.2) /100WBC Whole Blood PT (11.1-13.5) sec Whole Blood INR (0.9-1.1) Sodium (135-145) mmol/L Potassium (3.3-5.1) mmol/L Chloride (96-108) mmol/L Carbon Dioxide (22-29) mmol/L Anion Gap (12-20) BUN (9-16) mg/dL Creatinine (0.5-1.4) mg/dL Estim Creat Clear Calc Estimated GFR POC Glucose (60-115) mg/dL Random Glucose (60-115) mg/dL Calcium (8.4-10.2) mg/dL Total Bilirubin (0.0-1.0) mg/dL AST (5-37) U/L ALT (0-40) U/L Alkaline Phosphatase (39-117) U/L Total Protein (6.5-8.0) g/dL Albumin (3.5-5.0) g/dL Lipase (8-78) U/L Urine Opiates Screen (Not Detect) Urine Fentanyl Screen (Not Detect) Ur Barbiturates Screen (Not Detect) Ur Phencyclidine Scrn (Not Detect) Ur Amphetamines Screen (Not Detect) U Benzodiazepines Scrn (Not Detect) Urine Cocaine Screen (Not Detect) U Marijuana (THC) Screen (Not Detect) Ethyl Alcohol mg/dL COVID-19 ([facility]IE) Negative (Negative) COVID-19 Clin Com See Note Discharge Plan Discharge Clinical Impression: Suicidal ideation Intentional opiate overdose Qualifiers: Encounter type: initial encounter Qualified Code(s): T40.602A - Poisoning by unspecified narcotics, intentional self-harm, initial encounter Patient Disposition: Still a Patient Prescriptions: No Action methadone [Methadose] 10 mg/mL Concentrate 25 mg PO DAILY 30 Days Qty: 75 0RF Rx Instructions: Partial Fill upon patient request. divalproex 250 mg Tablet Extended Release 24 Hr 1,250 mg PO DAILY 30 Days Qty: 150 0RF magnesium oxide 420 mg Tablet 420 mg PO DAILY 30 Days Qty: 30 0RF acetaminophen 500 mg Tablet 1,000 mg PO TID PRN (Reason: Pain, Mild) 30 Days Qty: 60 0RF meloxicam 7.5 mg Tablet 7.5 mg PO DAILY PRN (Reason: Pain, Mild) 30 Days Qty: 30 0RF Rx Instructions: take with food gabapentin 300 mg Capsule 900 mg PO BID@0900,1700 30 Days Qty: 180 0RF gabapentin 300 mg Capsule 1,200 mg PO BEDTIME 30 Days Qty: 120 0RF cyclobenzaprine 5 mg Tablet 5 mg PO BID PRN (Reason: Muscle Spasm) 30 Days Qty: 60 0RF calcium carbonate-vitamin D3 500 mg-3.125 mcg (125 unit) Tablet 1 tab PO BID 30 Days Qty: 60 0RF diclofenac sodium 1 % Gel 2 g TOPICAL QID PRN (Reason: osteoarthritis) 30 Days Qty: 1 0RF Rx Instructions: apply to single elbow, wrist or hand; for hand includes palm/fingers/back of hand melatonin 5 mg Tablet 5 mg PO BEDTIME PRN (Reason: Sleep) 30 Days Qty: 30 0RF sennosides-docusate sodium [Senna with Docusate Sodium] 8.6-50 mg Tablet 2 tab-cap PO BEDTIME PRN (Reason: Constipation) quetiapine 200 mg Tablet 200 mg PO BEDTIME amitriptyline 10 mg tablet 10 mg PO BEDTIME famotidine 20 mg tablet 20 mg PO DAILY@0630 alendronate 70 mg tablet 70 mg PO MO@0900
[2022-11-18] MEDS: Naloxone HCl Nasal 4 MG SPRAY NOSTRILALT ×2 (13:37)
[2022-11-18] MEDS: 0.9 % Sodium Chloride 1,000 ML 999 ML IV (13:37)
--- NOTE | 2022-11-18 13:37 | PC.NURSE ---
brought in via ems for unresponsive, ?stroke alert. 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 pt given total of 8mg nasal narcan with delayed positive effect. pt appearing much more alert, responsive to voice. bp increasing as fluids infuse. provider seen pt at bedside and aware of pt change in presentation. pt has bowen catheter in place draining clear yellow urine. core temp afebrile.
[2022-11-18 14:06] LABS: MANUAL DIFF FLAG NO
[2022-11-18 14:08] LABS: Basophils Percent Auto 0.4 % (0-2); Eosinophils Absolute Auto 0.1 X10*3/uL (0.0-0.4); Eosinophils Percent Auto 1.7 % (0-4); Hematocrit 34.8 % (42.0-52.0); Hemoglobin 11.4 g/dl (14.0-18.0); Imm Gran Abs Auto 0.03 X10*3/uL (0.00-0.03); Imm Gran Pct Auto 0.4 % (0.0-0.4); Lymphocytes Absolute Auto 3.4 X10*3/uL (1.2-4.9); Mean Corpuscular HGB Conc 32.8 g/dl (31.0-36.0); Mean Corpuscular Hemoglobin 28.6 pg (27.0-33.0); Mean Corpuscular Volume 87.4 fL (80.0-98.0); Mean Platelet Volume 9.5 fL (9.4-12.4); Monocytes Absolute Auto 0.7 X10*3/uL (0.1-1.2); Monocytes Percent Auto 8.3 % (2-11); Neutrophils Absolute Auto 4.2 x10*3/uL (2.0-8.3); Neutrophils Percent Auto 49.2 % (45-73); Platelet Count 217 X10*3/uL (160-400); Red Blood Count 3.98 X10*6/uL (4.60-5.80); Red Cell Distribution Width 15.2 % (11.0-16.0); White Blood Count 8.4 X10*3/uL (4.8-10.8)
[2022-11-18 14:08] LABS: Prothrombin Time Whole Bld POC 13.1 sec (11.1-13.5); ~PT, ~INR - Anti Coag Clinic 1.1 (0.9-1.1)
[2022-11-18 14:23] LABS: Amphetamine Screen Urine Not Detected (Not Detect); Barbiturates, Urine Not Detected (Not Detect); Benzodiazepines Screen Urine Not Detected (Not Detect); Cannabinoid Screen Urine Not Detected (Not Detect); Cocaine Screen Urine Not Detected (Not Detect); Fentanyl, urine POSITIVE (Not Detect); Opiate Screen Urine POSITIVE (Not Detect); Phencyclidine Screen Urine Not Detected (Not Detect)
[2022-11-18 14:26] LABS: Ethanol < 10 mg/dL
[2022-11-18 14:28] LABS: Alanine Aminotransferase 8 U/L (0-40); Alkaline Phosphatase 50 U/L (39-117); Anion Gap 12 (12-20); Aspartate Amino Transferase 16 U/L (5-37); Bilirubin Total 0.5 mg/dL (0.0-1.0); Blood Urea Nitrogen 22 mg/dL (9-16); Calcium 9.6 mg/dL (8.4-10.2); Carbon Dioxide 23 mmol/L (22-29); Chloride 110 mmol/L (96-108); Creatinine Clr Calc Pharmacy 61.9; Estimated Glomerular Filt Rate > 60; Glucose Random 79 mg/dL (60-115); Lipase 5 U/L (8-78); Potassium 3.9 mmol/L (3.3-5.1); Sodium 141 mmol/L (135-145); Total Protein 7.5 g/dL (6.5-8.0)
[2022-11-18 14:30] VITALS: BP 153/74; PULSE 69; RESP 20; TEMP 36.9; O2SAT 99
[2022-11-18 16:14] VITALS: BP 167/96; PULSE 73; RESP 19; O2SAT 97
--- NOTE | 2022-11-18 17:06 | MHC.CARE ---
Recovery reported due to intentional overdose pt not appropriate for SUDE and will require evaluation by CARE team.
[2022-11-18 19:22] VITALS: BP 154/78; PULSE 72; RESP 18; TEMP 36.6; O2SAT 97
--- NOTE | 2022-11-18 19:59 | PC.NURSE ---
patient in bed with eyes closed patient showing no distress at this time patient vitals are stable at this time patient have a 1:1 status at this time patient was swapped for COVID patient will contineu to be montiored for safety
[2022-11-18 20:26] LABS: COVID-19 Test Negative (Negative); IDNOW Serial# 08D9AD1C
--- NOTE | 2022-11-18 22:15 | PHA.MEDREC ---
Pharmacy Consult ? Medication Reconciliation Pharmacy has completed the medication reconciliation. Spoke to patient to confirm meds. Patient states they are on Methadone 25mg and goes to [facility] on [facility] [address].
--- NOTE | 2022-11-19 05:38 | PC.NURSE ---
Patient slept through the night, no distress observed/reported, behavior non concerning, med rec completed/pending provider's approval, disposition per care team is section 12 inpatient bed search, labs completed/resulted, patient ambulates steady with walker, will continue to monitor.
[2022-11-19 05:46] VITALS: BP 154/79; PULSE 62; RESP 16; TEMP 36.3; O2SAT 97
[2022-11-19] MEDS: Divalproex Sodium ER 250 MG TAB.ER.24H 1250 MG PO (09:11)
[2022-11-19] MEDS: Calcium + Vitamin D 250 MG TABLET PO ×2 (09:13→20:26)
[2022-11-19] MEDS: Gabapentin 300 MG CAPSULE 900 MG PO ×2 (09:15→17:58)
[2022-11-19] MEDS: Famotidine 20 MG TABLET PO (09:15)
[2022-11-19] MEDS: Magnesium Oxide 400 MG TABLET PO (09:15)
[2022-11-19 09:29] LABS: Appearance Urine Clear; Color Urine Yellow; Glucose Urine UA Negative (Negative); Leukocyte Esterase Urine Small (1+) (Negative); Nitrite Urine Negative (Negative); PH 6.5 (5.0-9.0); Specific Gravity - Urine 1.025 (1.005-1.025); UMIC TRIGGER UACC YES; Urine Blood Moderate (2+) (Negative); Urine Ketones Trace mg/dL (Negative); Urine Protein Trace mg/dL (Neg-Trace)
[2022-11-19 09:35] LABS: Bacteria Urine None Seen (None Seen); Hyaline Casts Urine 0-2 /LPF (0-2); RBC Urine >20 /HPF (0-2); UACC Culture Trigger YES; WBC Urine 21-50 /HPF (0-5)
--- NOTE | 2022-11-19 09:42 | HE.PHANOTE ---
RE METHADONE N [address] OTP LAST DOSE WAS 11/18 FOR 28 MG COLETTE
--- NOTE | 2022-11-19 13:28 | HO.SUDE ---
Pt seen by CARE Team for evaluation due to intentional opioid overdose. Please see CARE Team note.
[2022-11-19] MEDS: methADONE HCl 20 MG/2 ML ORAL.CONC 28 MG PO (14:34)
[2022-11-19] MEDS: Acetaminophen 325 MG TABLET 975 MG PO (14:38)
--- NOTE | 2022-11-19 15:10 | P.HPPS_ITS ---
HPI Date of Service: 11/19/22 Chief Complaint: OD Sources of Information: patient interviewed, chart reviewed and crisis/core team assessment reviewed HPI Subjective Notes: Phan Warning (given and shows understanding) and Conditional Voluntary Narrative: Mr. Alcantara is a 72 year-old male with hx of opioid use disorder and bipolar disorder who was brought via EMS after he was unresponsive in a bus. In the ED, he presented with low respiration rate, pin point pupils, unresponsive. He was given 4mg of narcan with good effect. Pt woke up and reported he had intentional OD with heroin as suicide attempt. Pt is known to [facility] from previous admission back in 12/2021 with similar presentation. His utox was positive for fentanyl and opioids. On the unit, pt reports feeling more depressed for some weeks. He denies use of heroin for a long time, can't remember. Note that last admission to this unit he was positive for fentanyl and opioids with extensive hx of opioid overdose. He denies any plan or intent to harm himself now but continues to endorse depressed mood. He reports day of OD, he went to [place] (he resides in [place]). He reports he used about 14 bags of heroin and then took the bus. When asked if intent was to end his life he does report I didn't think I was going to . He reports he suffers from anxiety and reports that he was prescribed xanax outpatient. This keno writer / runner reviewed with patient that past records show concern of abuse or misuse of benzo as he continues to work on his recovery. He denies hx of visual or auditory hallucinations. He reports when he OD, he felt and hit his head. He reports pain back of his head- will order head CT. He reports constipation. Past Psychiatric History: The patient has several psychiatric admissions, he was diagnosed with bipolar disorder in his 40s, he has at least 6 prior psychiatric admissions last admission at [facility] 2020. He follows treatment and the DE as an outpatient- Dr. Torre [phone] Medical Evaluation Reviewed: Yes [facility] Narrative: Substance use hx: pt reports opioid use for several years. He reports he only used on day of intentional OD, reports he does not remember when was last time he used heroin. Per records, he was positive for fentanyl and opioids back in 12/2021. Family History: Denies Social History: The patient is born and raised in [place], he served in the [employer] and according to him he has 4 adult children. 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[employer], good social support Trauma History: Denies Diagnostics Vital Signs (24Hr): Vital Signs - 24 hr 11/18/22 16:14 11/18/22 19:22 11/19/22 05:46 Temperature 97.8 F 97.3 F Pulse Rate 73 72 62 Respiratory Rate 19 18 16 Blood Pressure 167/96 H 154/78 H 154/79 H Pulse Oximetry 97 97 97 Oxygen Delivery Method Room Air Room Air Room Air BMI result Body Mass Index 21.9 Labs 11/18/22 13:59 11/18/22 13:59 Labs: Laboratory Results - last 48 hr 11/18/22 11/18/22 11/18/22 13:15 13:17 13:59 WBC 8.4 RBC 3.98 L Hgb 11.4 L Hct 34.8 L MCV 87.4 MCH 28.6 MCHC 32.8 RDW 15.2 Plt Count 217 MPV 9.5 Immature Gran % (Auto) 0.4 Neut % (Auto) 49.2 Lymph % (Auto) 40.0 [place] % (Auto) 8.3 Eos % (Auto) 1.7 Baso % (Auto) 0.4 Lymph # (Auto) 3.4 [place] # (Auto) 0.7 Eos # (Auto) 0.1 Baso # (Auto) 0.0 Abs Immat Gran (auto) 0.03 Absolute Neuts (auto) 4.2 Absolute Nucleated RBC 0.000 Nucleated RBC % (auto) 0.0 Whole Blood PT 13.1 Whole Blood INR 1.1 Sodium Potassium Chloride Carbon Dioxide Anion Gap BUN Creatinine Estim Creat Clear Calc Estimated GFR POC Glucose 88 Random Glucose Calcium Total Bilirubin AST ALT Alkaline Phosphatase Total Protein Albumin Lipase Urine Color Urine Appearance Urine pH Ur Specific [place] Urine Protein Urine Glucose (UA) Urine Ketones Urine Blood Urine Nitrite Ur Leukocyte Esterase Urine RBC Urine WBC Ur Squamous Epith Cells Urine Bacteria Hyaline Casts Urine Opiates Screen Urine Fentanyl Screen Ur Barbiturates Screen Ur Phencyclidine Scrn Ur Amphetamines Screen U Benzodiazepines Scrn Urine Cocaine Screen U Marijuana (THC) Screen Ethyl Alcohol COVID-19 (RONNIE) COVID-19 Clin Com 11/18/22 11/18/22 11/18/22 13:59 13:59 14:08 WBC RBC Hgb Hct MCV MCH MCHC RDW Plt Count MPV Immature Gran % (Auto) Neut % (Auto) Lymph % (Auto) [place] % (Auto) Eos % (Auto) Baso % (Auto) Lymph # (Auto) [place] # (Auto) Eos # (Auto) Baso # (Auto) Abs Immat Gran (auto) Absolute Neuts (auto) Absolute Nucleated RBC Nucleated RBC % (auto) Whole Blood PT Whole Blood INR Sodium 141 Potassium 3.9 Chloride 110 H Carbon Dioxide 23 Anion Gap 12 BUN 22 H Creatinine 0.83 Estim Creat Clear Calc 61.9 Estimated GFR > 60 POC Glucose Random Glucose 79 Calcium 9.6 D Total Bilirubin 0.5 AST 16 ALT 8 Alkaline Phosphatase 50 Total Protein 7.5 Albumin 4.0 Lipase 5 L Urine Color Urine Appearance Urine pH Ur Specific [place] Urine Protein Urine Glucose (UA) Urine Ketones Urine Blood Urine Nitrite Ur Leukocyte Esterase Urine RBC Urine WBC Ur Squamous Epith Cells Urine Bacteria Hyaline Casts Urine Opiates Screen POSITIVE H Urine Fentanyl Screen POSITIVE H Ur Barbiturates Screen Not Detected Ur Phencyclidine Scrn Not Detected Ur Amphetamines Screen Not Detected U Benzodiazepines Scrn Not Detected Urine Cocaine Screen Not Detected U Marijuana (THC) Screen Not Detected Ethyl Alcohol < 10 COVID-19 (RONNIE) COVID-19 Clin Com 11/18/22 11/19/22 20:00 09:13 WBC RBC Hgb Hct MCV MCH MCHC RDW Plt Count MPV Immature Gran % (Auto) Neut % (Auto) Lymph % (Auto) [place] % (Auto) Eos % (Auto) Baso % (Auto) Lymph # (Auto) [place] # (Auto) Eos # (Auto) Baso # (Auto) Abs Immat Gran (auto) Absolute Neuts (auto) Absolute Nucleated RBC Nucleated RBC % (auto) Whole Blood PT Whole Blood INR Sodium Potassium Chloride Carbon Dioxide Anion Gap BUN Creatinine Estim Creat Clear Calc Estimated GFR POC Glucose Random Glucose Calcium Total Bilirubin AST ALT Alkaline Phosphatase Total Protein Albumin Lipase Urine Color Yellow Urine Appearance Clear Urine pH 6.5 Ur Specific [place] 1.025 Urine Protein Trace Urine Glucose (UA) Negative Urine Ketones Trace Urine Blood Moderate (2+) H Urine Nitrite Negative Ur Leukocyte Esterase Small (1+) H Urine RBC >20 H Urine WBC 21-50 H Ur Squamous Epith Cells 3-5 Urine Bacteria None Seen Hyaline Casts 0-2 Urine Opiates Screen Urine Fentanyl Screen Ur Barbiturates Screen Ur Phencyclidine Scrn Ur Amphetamines Screen U Benzodiazepines Scrn Urine Cocaine Screen U Marijuana (THC) Screen Ethyl Alcohol COVID-19 (RONNIE) Negative COVID-19 Clin Com See Note Imaging Radiology Impressions: ITS Impressions Chest X-Ray 11/18/22 15:00 IMPRESSION: Patchy airspace disease in the right lung base, suspicious for pneumonia. Meds/Allergies Meds Home Medications Medication Instructions Recorded Confirmed Type alendronate 70 mg tablet 70 mg PO MO@0900 11/18/22 11/18/22 History amitriptyline 10 mg tablet 10 mg PO BEDTIME 11/18/22 11/18/22 History famotidine 20 mg tablet 20 mg PO DAILY@0630 11/18/22 11/18/22 History quetiapine 200 mg tablet 200 mg PO BEDTIME 11/18/22 11/18/22 History sennosides 8.6 mg-docusate sodium 2 tab-cap PO BEDTIME PRN 11/18/22 11/18/22 History 50 mg tablet (Senna with Docusate Constipation Sodium) methadone 10 mg/mL oral 28 mg PO DAILY 11/19/22 11/19/22 History concentrate (Methadose) Allergies Allergies Allergy/AdvReac Type Severity Reaction Status Date / Time No Known Allergies Allergy Unverified 02/16/20 15:59 [No Known Allergies*] Mental Status Exam Mental Status Exam Narrative: Appearance: wearing casual clothing, fair hygiene, in NAD Behaviors: cooperative Psychomotor: no retardation or agitation noted Speech: clear, normal rate/rhythm/volume, spontaneous TP: linear TC: no psychosis, feeling depressed, wanting benzo Mood: depressed Affect: congruent SI: passive HI: denies VH/AH: none Delusions: none Insight/judgment: fair x 2. Memory/cog: alert, oriented x 3. grossly intact to conversational tesing. Assessment & Plan Assessment & Plan (1) Bipolar 1 disorder, depressed: Status: Acute Code(s): F31.9 - Bipolar disorder, unspecified (2) Opioid use disorder, severe, on maintenance therapy: Status: Acute Code(s): F11.20 - Opioid dependence, uncomplicated Plan Mr. Pascal is a 72 year-old male with hx of opioid use disorder, Bipolar disorder who was was unresponsive in public transportation. In the ED, low respiration rate, pin point pupils, unresponsive but responded quickly to narcan 4mg. Utox positive for opioids and fentanyl. Pt reported he had intentional OD on heroin as suicide attempt. On the unit, pt continues to report depressed mood increase suicidal ideation for the past 10 days, no clear trigger, reports chronic pain (arthritis and chronic headaches). However, he reports he had 14 bags of heroin and took bus to return home from [place] to [place]. PLAN 1. Admit to , CV, 15 minutes checks for safety 2. Continue seroquel, depakote. 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 Torre as to considering antidepressant (maybe cymbalta or effexor). 3. Obtain collateral information from son 4. Aftercare planning. Will give narcan at time of discharge. Patient educated on: diagnosis, medication risk/benefits and substance abuse Reason for continued inpatient stay Substantial Risk for: harm to self Statement Statement: I have reviewed the history and physical and performed a pertinent examination on my patient. No changes have occurred unless specified. If the History and Physical was not performed prior to admission, the Hospitalist's service will be consulted for completing the admission physical. Time Spent With Patient Time: Total time managing care of this patient today ____ minutes.
[2022-11-19 18:00] VITALS: BP 135/91; PULSE 78; RESP 22; TEMP 36.2; O2SAT 99
[2022-11-19 18:40] VITALS: BMI 22.5
--- NOTE | 2022-11-19 18:43 | PC.ADMIT ---
UPON ADMISSION, PT ARR[place] O[place] [facility] [place] AT 1415. PT WAS ADMITTED DUE TO AN INTENTIONAL OVER DOSE ON 14 BAGS OF HEROIN. POSITIVE FOR FENTANYL WELL. HE STATES THAT HE TOOK THE DRUGS AND THEN GOT ONTO A [place] BUS IN ORDER TO HEAD HOME. ON THE BUS HE BECAME UNCONSCIOUS AND FELL AND HIT HIS HEAD. CT [place] [facility]. PT WAS ADMINISTERED [facility] WHILE ON THE CITY BUS, AND THEN [place] [facility] PT STATES THAT HE IS SAD THAT HE DIDN'T , HOWEVER, HE DENIES ANY CURRENT SUICIDAL THOUGHTS. PT. IS A&OX4. PT MAKES GOOD EYE CONTACT WHILE SPEAKING TO STAFF AND PEERS. PT IS VERY SOCIAL AND PLEASANT WITH PEERS AND STAFF. ALL VISIBLE SKIN IN TACT, AMBULATES WITH A WALKER. PT SIGNED A CV.
[2022-11-19] MEDS: Nicotine 14 MG PATCH.TD24 TRANSDERMA (18:59)
[2022-11-19] MEDS: cloNIDine HCL 0.1 MG TABLET PO (19:19)
[2022-11-19] MEDS: QUEtiapine Fumarate 200 MG TABLET PO (20:25)
[2022-11-19] MEDS: Gabapentin 400 MG CAPSULE 1200 MG PO (20:26)
[2022-11-19] MEDS: Amitriptyline HCl 10 MG TABLET PO (20:26)
[2022-11-19] MEDS: Sennosides/Docusate Sodium TABLET 2 TAB PO (20:26)
[2022-11-20] MEDS: Acetaminophen 325 MG TABLET 975 MG PO ×2 (02:37→20:50)
[2022-11-20] MEDS: Famotidine 20 MG TABLET PO (04:58)
[2022-11-20 07:00] VITALS: BMI 25.7
[2022-11-20] MEDS: Gabapentin 300 MG CAPSULE 900 MG PO ×2 (08:19→16:22)
[2022-11-20 08:20] VITALS: BP 151/71; PULSE 67; RESP 18; TEMP 36; O2SAT 99
[2022-11-20] MEDS: Sennosides/Docusate Sodium TABLET 2 TAB PO ×2 (08:20→20:45)
[2022-11-20] MEDS: Divalproex Sodium ER 250 MG TAB.ER.24H 1250 MG PO (08:20)
[2022-11-20] MEDS: Calcium + Vitamin D 250 MG TABLET PO ×2 (08:26→20:45)
[2022-11-20] MEDS: Magnesium Oxide 400 MG TABLET PO (08:26)
[2022-11-20] MEDS: methADONE HCl 20 MG/2 ML ORAL.CONC 28 MG PO (08:26)
[2022-11-20 09:21] LABS: Alanine Aminotransferase 9 U/L (0-40); Albumin Level 4.2 g/dL (3.5-5.0); Alkaline Phosphatase 53 U/L (39-117); Anion Gap 12 (12-20); Aspartate Amino Transferase 17 U/L (5-37); Bilirubin Total 0.4 mg/dL (0.0-1.0); Blood Urea Nitrogen 27 mg/dL (9-16); Calcium 10.4 mg/dL (8.4-10.2); Carbon Dioxide 28 mmol/L (22-29); Chloride 105 mmol/L (96-108); Cholesterol 168 mg/dL; Creatinine Clr Calc Pharmacy 66.9; Estimated Glomerular Filt Rate > 60; Glucose Fasting 80 mg/dL (60-99); HDL Cholesterol 35 mg/dL; LDL Cholesterol Calculated 104 mg/dl; Magnesium 2.3 mg/dL (1.6-2.6); Potassium 4.3 mmol/L (3.3-5.1); Sodium 141 mmol/L (135-145); Triglycerides 146 mg/dL
[2022-11-20 09:27] LABS: Thyroid Stimulating Hormone 2.39 uIU/mL (0.32-4.0)
[2022-11-20 09:33] LABS: Folate 5.3 ng/mL (> or = 4.0); Vitamin B12 1348 pg/mL (200-900)
[2022-11-20 10:43] LABS: Estimated Average Glucose 105 mg/dL; Hemoglobin A1c % 5.3 %
[2022-11-20] MEDS: Nicotine 14 MG PATCH.TD24 TRANSDERMA (11:19)
--- NOTE | 2022-11-20 12:08 | HO.PSYCHPN ---
Subjective Subjective Date of Service: 11/20/22 Reason For Visit: OD Subjective Notes: Conditional Voluntary Interim History: Pt continues to endorse depressed mood, passive SI. He reports chronic pain that exacerbates his depression. He reports he lives with his son. This development writer tried contacting his younger son, also named Mahendra but unable to reach him as phone number is for his older son, Alberto who reports father has been struggling with depression for a long time but also substance use. This development writer also left message for his psychiatrist Dr. Roney Torre at [place] ([phone])- wondering if starting antidepressant or increasing amitriptyline if no prior exacerbation of hypomania or rosalino with antidepressant use. Per nursing, pt slept through the night. No behavioral concerns. Medication Compliance: Yes Review of Systems Review of Systems Pt reports headache-chronic left side pain and tinnitus since exposed to blasting sounds while in . No changes in vision. Pt reports tight chest but denies pt, think this is anxiety and relief by benzo. Denies difficulty urinating. He does report constipation. No vomiting. Mental Status Exam Mental Status Exam Narrative: Appearance: wearing casual clothing, fair hygiene, in NAD Behaviors: cooperative Psychomotor: no retardation or agitation noted Speech: clear, normal rate/rhythm/volume, spontaneous TP: linear TC: no psychosis, feeling depressed, wanting benzo Mood: depressed Affect: congruent SI: passive HI: denies VH/AH: none Delusions: none Insight/judgment: fair x 2. Memory/cog: alert, oriented x 3. grossly intact to conversational tesing. Diagnostics Vital Signs (24Hr): Vital Signs - 24 hr 11/19/22 18:00 11/20/22 08:20 Temperature 97.2 F 96.8 F Pulse Rate 78 67 Respiratory Rate 22 H 18 Blood Pressure 135/91 H 151/71 H Pulse Oximetry 99 99 Oxygen Delivery Method Room Air Room Air BMI result Body Mass Index 25.7 Labs 11/18/22 13:59 11/20/22 08:00 Labs: Laboratory Results - last 48 hr 11/18/22 11/18/22 11/18/22 13:15 13:17 13:59 WBC 8.4 RBC 3.98 L Hgb 11.4 L Hct 34.8 L MCV 87.4 MCH 28.6 MCHC 32.8 RDW 15.2 Plt Count 217 MPV 9.5 Immature Gran % (Auto) 0.4 Neut % (Auto) 49.2 Lymph % (Auto) 40.0 [place] % (Auto) 8.3 Eos % (Auto) 1.7 Baso % (Auto) 0.4 Lymph # (Auto) 3.4 [place] # (Auto) 0.7 Eos # (Auto) 0.1 Baso # (Auto) 0.0 Abs Immat Gran (auto) 0.03 Absolute Neuts (auto) 4.2 Absolute Nucleated RBC 0.000 Nucleated RBC % (auto) 0.0 Whole Blood PT 13.1 Whole Blood INR 1.1 Sodium Potassium Chloride Carbon Dioxide Anion Gap BUN Creatinine Estim Creat Clear Calc Estimated GFR POC Glucose 88 Random Glucose Fasting Glucose Estimat Average Glucose Hemoglobin A1c % Calcium Magnesium Total Bilirubin AST ALT Alkaline Phosphatase Total Protein Albumin Triglycerides Cholesterol LDL Cholesterol, Calc HDL Cholesterol Lipase Vitamin B12 Folate TSH Urine Color Urine Appearance Urine pH Ur Specific [place] Urine Protein Urine Glucose (UA) Urine Ketones Urine Blood Urine Nitrite Ur Leukocyte Esterase Urine RBC Urine WBC Ur Squamous Epith Cells Urine Bacteria Hyaline Casts Urine Opiates Screen Urine Fentanyl Screen Ur Barbiturates Screen Ur Phencyclidine Scrn Ur Amphetamines Screen U Benzodiazepines Scrn Urine Cocaine Screen U Marijuana (THC) Screen Ethyl Alcohol COVID-19 (RONNIE) COVID-19 Clin Com 11/18/22 11/18/22 11/18/22 13:59 13:59 14:08 WBC RBC Hgb Hct MCV MCH MCHC RDW Plt Count MPV Immature Gran % (Auto) Neut % (Auto) Lymph % (Auto) [place] % (Auto) Eos % (Auto) Baso % (Auto) Lymph # (Auto) [place] # (Auto) Eos # (Auto) Baso # (Auto) Abs Immat Gran (auto) Absolute Neuts (auto) Absolute Nucleated RBC Nucleated RBC % (auto) Whole Blood PT Whole Blood INR Sodium 141 Potassium 3.9 Chloride 110 H Carbon Dioxide 23 Anion Gap 12 BUN 22 H Creatinine 0.83 Estim Creat Clear Calc 61.9 Estimated GFR > 60 POC Glucose Random Glucose 79 Fasting Glucose Estimat Average Glucose Hemoglobin A1c % Calcium 9.6 D Magnesium Total Bilirubin 0.5 AST 16 ALT 8 Alkaline Phosphatase 50 Total Protein 7.5 Albumin 4.0 Triglycerides Cholesterol LDL Cholesterol, Calc HDL Cholesterol Lipase 5 L Vitamin B12 Folate TSH Urine Color Urine Appearance Urine pH Ur Specific [place] Urine Protein Urine Glucose (UA) Urine Ketones Urine Blood Urine Nitrite Ur Leukocyte Esterase Urine RBC Urine WBC Ur Squamous Epith Cells Urine Bacteria Hyaline Casts Urine Opiates Screen POSITIVE H Urine Fentanyl Screen POSITIVE H Ur Barbiturates Screen Not Detected Ur Phencyclidine Scrn Not Detected Ur Amphetamines Screen Not Detected U Benzodiazepines Scrn Not Detected Urine Cocaine Screen Not Detected U Marijuana (THC) Screen Not Detected Ethyl Alcohol < 10 COVID-19 (RONNIE) COVID-19 [facility] 11/18/22 11/19/22 11/20/22 20:00 09:13 08:00 WBC RBC Hgb Hct MCV MCH MCHC RDW Plt Count MPV Immature Gran % (Auto) Neut % (Auto) Lymph % (Auto) [place] % (Auto) Eos % (Auto) Baso % (Auto) Lymph # (Auto) [place] # (Auto) Eos # (Auto) Baso # (Auto) Abs Immat Gran (auto) Absolute Neuts (auto) Absolute Nucleated RBC Nucleated RBC % (auto) Whole Blood PT Whole Blood INR Sodium 141 Potassium 4.3 Chloride 105 Carbon Dioxide 28 Anion Gap 12 BUN 27 H Creatinine 0.77 Estim Creat Clear Calc 66.9 Estimated GFR > 60 POC Glucose Random Glucose Fasting Glucose 80 Estimat Average Glucose Hemoglobin A1c % Calcium 10.4 H D Magnesium 2.3 Total Bilirubin 0.4 AST 17 ALT 9 Alkaline Phosphatase 53 Total Protein 8.0 Albumin 4.2 Triglycerides 146 Cholesterol 168 LDL Cholesterol, Calc 104 HDL Cholesterol 35 Lipase Vitamin B12 Folate TSH 2.39 Urine Color Yellow Urine Appearance Clear Urine pH 6.5 Ur Specific [place] 1.025 Urine Protein Trace Urine Glucose (UA) Negative Urine Ketones Trace Urine Blood Moderate (2+) H Urine Nitrite Negative Ur Leukocyte Esterase Small (1+) H Urine RBC >20 H Urine WBC 21-50 H Ur Squamous Epith Cells 3-5 Urine Bacteria None Seen Hyaline Casts 0-2 Urine Opiates Screen Urine Fentanyl Screen Ur Barbiturates Screen Ur Phencyclidine Scrn Ur Amphetamines Screen U Benzodiazepines Scrn Urine Cocaine Screen U Marijuana (THC) Screen Ethyl Alcohol COVID-19 (RONNIE) Negative COVID-19 [facility] Com See Note 11/20/22 11/20/22 08:00 08:00 WBC RBC Hgb Hct MCV MCH MCHC RDW Plt Count MPV Immature Gran % (Auto) Neut % (Auto) Lymph % (Auto) [place] % (Auto) Eos % (Auto) Baso % (Auto) Lymph # (Auto) [place] # (Auto) Eos # (Auto) Baso # (Auto) Abs Immat Gran (auto) Absolute Neuts (auto) Absolute Nucleated RBC Nucleated RBC % (auto) Whole Blood PT Whole Blood INR Sodium Potassium Chloride Carbon Dioxide Anion Gap BUN Creatinine Estim Creat Clear Calc Estimated GFR POC Glucose Random Glucose Fasting Glucose Estimat Average Glucose 105 Hemoglobin A1c % 5.3 Calcium Magnesium Total Bilirubin AST ALT Alkaline Phosphatase Total Protein Albumin Triglycerides Cholesterol LDL Cholesterol, Calc HDL Cholesterol Lipase Vitamin B12 1348 H Folate 5.3 TSH Urine Color Urine Appearance Urine pH Ur Specific [place] Urine Protein Urine Glucose (UA) Urine Ketones Urine Blood Urine Nitrite Ur Leukocyte Esterase Urine RBC Urine WBC Ur Squamous Epith Cells Urine Bacteria Hyaline Casts Urine Opiates Screen Urine Fentanyl Screen Ur Barbiturates Screen Ur Phencyclidine Scrn Ur Amphetamines Screen U Benzodiazepines Scrn Urine Cocaine Screen U Marijuana (THC) Screen Ethyl Alcohol COVID-19 (RONNIE) COVID-19 Clin Com Imaging Radiology Impressions: ITS Impressions Chest X-Ray 11/18/22 15:00 IMPRESSION: Patchy airspace disease in the right lung base, suspicious for pneumonia. Head CT 11/19/22 15:51 IMPRESSION: 1. No evidence of acute intracranial hemorrhage or edematous territorial infarction. 2. Moderate underlying microangiopathy and generalized cerebral volume loss. Chronic lacunar infarct of the left caudate head. Medications Medications Current Medications Acetaminophen (Acetaminophen 325 Mg Tablet) 975 mg PO TID PRN PRN Reason: Pain, Mild Last Admin: 11/20/22 02:37 Dose: 975 mg Al Hydroxide/Mg Hydroxide (Magnesium Hydrox/Alum Hydrox 30 Ml Oral.Susp) 30 ml PO Q6H PRN PRN Reason: Heartburn/Nausea Amitriptyline HCl (Amitriptyline Hcl 10 Mg Tablet) 10 mg PO BEDTIME [facility]ISABET Last Admin: 11/19/22 20:26 Dose: 10 mg Calcium Carbonate/Cholecalciferol (Calcium + Vitamin D 250 Mg Tablet) 250 mg PO BID ELISABET Last Admin: 11/20/22 08:26 Dose: 250 mg Clonidine HCl (Clonidine Hcl 0.1 Mg Tablet) 0.1 mg PO TID PRN; Protocol PRN Reason: anxiety/SBP>160 Last Admin: 11/19/22 19:19 Dose: 0.1 mg Cyclobenzaprine HCl (Cyclobenzaprine Hcl 5 Mg Tablet) 5 mg PO BID PRN PRN Reason: Muscle Spasm Divalproex Sodium (Divalproex Sodium Er 250 Mg Tab.Er.24h) 1,250 mg PO DAILY [facility] Last Admin: 11/20/22 08:20 Dose: 1,250 mg Famotidine (Famotidine 20 Mg Tablet) 20 mg PO DAILY@0630 [facility] Last Admin: 11/20/22 04:58 Dose: 20 mg Gabapentin (Gabapentin 300 Mg Capsule) 900 mg PO BID@0900,1700 [facility] Last Admin: 11/20/22 08:19 Dose: 900 mg Gabapentin (Gabapentin 400 Mg Capsule) 1,200 mg PO BEDTIME [facility] Last Admin: 11/19/22 20:26 Dose: 1,200 mg Hydroxyzine HCl (Hydroxyzine Hcl 25 Mg Tablet) 25 mg PO Q6H PRN PRN Reason: Anxiety Magnesium Hydroxide (Milk Of Magnesia 30 Ml Oral.Susp) 30 ml PO DAILY PRN PRN Reason: Constipation Magnesium Oxide (Magnesium Oxide 400 Mg Tablet) 400 mg PO DAILY [facility] Last Admin: 11/20/22 08:26 Dose: 400 mg Melatonin (Melatonin 3 Mg Tablet) 6 mg PO BEDTIME PRN PRN Reason: Sleep Methadone HCl (Methadone Hcl 20 Mg/2 Ml Oral.Conc) 28 mg PO DAILY [facility] Last Admin: 11/20/22 08:26 Dose: 28 mg Naproxen (Naproxen 250 Mg Tablet) 250 mg PO DAILY PRN PRN Reason: Pain, Mild Nicotine (Nicotine 14 Mg Patch.Td24) 14 mg TRANSDERMA DAILY [facility] Last Admin: 11/20/22 11:19 Dose: 14 mg Pharmacy Consult (Consult Rx Perform Med Rec) 1 each MISCELLANE ONCE PRN PRN Reason: Consult order Quetiapine Fumarate (Quetiapine Fumarate 200 Mg Tablet) 200 mg PO BEDTIME [facility] Last Admin: 11/19/22 20:25 Dose: 200 mg Senna/Docusate Sodium (Sennosides/Docusate Sodium Tablet) 2 tab PO BID [facility] Last Admin: 11/20/22 08:20 Dose: 2 tab Trazodone HCl (Trazodone Hcl 50 Mg Tablet) 50 mg PO BEDTIME MRX1 PRN PRN Reason: Insomnia Allergies Allergies Allergy/AdvReac Type Severity Reaction Status Date / Time No Known Allergies Allergy Unverified 02/16/20 15:59 [No Known Allergies*] Assessment & Plan Assessment & Plan (1) Bipolar 1 disorder, depressed: Status: Acute Code(s): F31.9 - Bipolar disorder, unspecified (2) Opioid use disorder, severe, on maintenance therapy: Status: Acute Code(s): F11.20 - Opioid dependence, uncomplicated Plan Mr. Pascal is a 72 year-old male with hx of opioid use disorder, Bipolar disorder who was was unresponsive in public transportation. In the ED, low respiration rate, pin point pupils, unresponsive but responded quickly to narcan 4mg. Utox positive for opioids and fentanyl. Pt reported he had intentional OD on heroin as suicide attempt. On the unit, pt continues to report depressed mood increase suicidal ideation for the past 10 days, no clear trigger, reports chronic pain (arthritis and chronic headaches). However, he reports he had 14 bags of heroin and took bus to return home from [place] to [place]. PLAN 11/20 switch depakote to night time. Left message with call back number to Dr. Torre (pt's long standing psychiatrist- consider adding antidepressant). continue other medications. Reason for continued inpatient stay Substantial Risk for: harm to self Time Spent With Patient Time: Total time managing care of this patient today ____ minutes.
[2022-11-20] MEDS: Milk of Magnesia 30 ML ORAL.SUSP PO (14:21)
[2022-11-20 18:00] VITALS: BP 141/76; PULSE 68; RESP 18; TEMP 36.3; O2SAT 98
[2022-11-20] MEDS: Gabapentin 400 MG CAPSULE 1200 MG PO (20:45)
[2022-11-20] MEDS: Amitriptyline HCl 10 MG TABLET PO (20:45)
[2022-11-20] MEDS: QUEtiapine Fumarate 200 MG TABLET PO (20:46)
[2022-11-20] MEDS: Melatonin 3 MG TABLET 6 MG PO (20:51)
[2022-11-21] MEDS: Famotidine 20 MG TABLET PO (05:34)
[2022-11-21 08:15] VITALS: BP 148/70; PULSE 62; RESP 16; TEMP 36.2; O2SAT 99
[2022-11-21] MEDS: Magnesium Oxide 400 MG TABLET PO (08:43)
[2022-11-21] MEDS: Gabapentin 300 MG CAPSULE 900 MG PO ×2 (08:43→17:37)
[2022-11-21] MEDS: Calcium + Vitamin D 250 MG TABLET PO ×2 (08:43→20:01)
[2022-11-21] MEDS: methADONE HCl 20 MG/2 ML ORAL.CONC 28 MG PO (08:43)
[2022-11-21] MEDS: Sennosides/Docusate Sodium TABLET 2 TAB PO ×2 (08:43→20:02)
[2022-11-21] MEDS: Nicotine 14 MG PATCH.TD24 TRANSDERMA (09:57)
[2022-11-21] MEDS: NaPROXEN 250 MG TABLET PO (17:37)
[2022-11-21 18:00] VITALS: BP 143/86; PULSE 64; RESP 14; TEMP 36.1; O2SAT 97
[2022-11-21] MEDS: Amitriptyline HCl 10 MG TABLET PO (20:01)
[2022-11-21] MEDS: QUEtiapine Fumarate 200 MG TABLET PO (20:01)
[2022-11-21] MEDS: Gabapentin 400 MG CAPSULE 1200 MG PO (20:02)
[2022-11-21] MEDS: Divalproex Sodium ER 250 MG TAB.ER.24H 1250 MG PO (20:03)
[2022-11-21] MEDS: Cyclobenzaprine HCl 5 MG TABLET PO (20:04)
--- NOTE | 2022-11-21 22:08 | P.PNPSI_ITS ---
Subjective Subjective Date of Service: 11/21/22 Reason For Visit: OD Subjective Notes: Conditional Voluntary Interim History: Pt reports feeling less depressed. He denies SI/HI. He reports pain on left side of head which has been chronic for 50 years is worse. 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 Pt reports he had some difficulty sleeping last night, hopes to sleep better tonight, now that he will take depakote at bedtime. We also discussed starting cymbalta for depression, may have some benefit in terms of pain. Review of Systems Review of Systems Pt reports headache-chronic left side pain and tinnitus since exposed to blasting sounds while in . No changes in vision. Pt reports tight chest but denies pt, think this is anxiety and relief by benzo. Denies difficulty urinating. He does report constipation. No vomiting. Mental Status Exam Mental Status Exam Narrative: Appearance: wearing casual clothing, fair hygiene, in NAD Behaviors: cooperative Psychomotor: no retardation or agitation noted Speech: clear, normal rate/rhythm/volume, spontaneous TP: linear TC: no psychosis, feeling depressed, wanting benzo Mood: depressed Affect: congruent SI: passive HI: denies VH/AH: none Delusions: none Insight/judgment: fair x 2. Memory/cog: alert, oriented x 3. grossly intact to conversational tesing. Diagnostics Vital Signs (24Hr): Vital Signs - 24 hr 11/21/22 08:15 11/21/22 18:00 Temperature 97.2 F 97 F Pulse Rate 62 64 Respiratory Rate 16 14 Blood Pressure 148/70 H 143/86 H Pulse Oximetry 99 97 Oxygen Delivery Method Room Air Room Air BMI result Body Mass Index 25.7 Labs 11/18/22 13:59 11/20/22 08:00 Labs: Laboratory Results - last 48 hr 11/20/22 11/20/22 11/20/22 08:00 08:00 08:00 Sodium 141 Potassium 4.3 Chloride 105 Carbon Dioxide 28 Anion Gap 12 BUN 27 H Creatinine 0.77 Estim Creat Clear Calc 66.9 Estimated GFR > 60 Fasting Glucose 80 Estimat Average Glucose 105 Hemoglobin A1c % 5.3 Calcium 10.4 H D Magnesium 2.3 Total Bilirubin 0.4 AST 17 ALT 9 Alkaline Phosphatase 53 Total Protein 8.0 Albumin 4.2 Triglycerides 146 Cholesterol 168 LDL Cholesterol, Calc 104 HDL Cholesterol 35 Vitamin B12 1348 H Folate 5.3 TSH 2.39 Imaging Radiology Impressions: ITS Impressions Chest X-Ray 11/18/22 15:00 IMPRESSION: Patchy airspace disease in the right lung base, suspicious for pneumonia. Head CT 11/19/22 15:51 IMPRESSION: 1. No evidence of acute intracranial hemorrhage or edematous territorial infarction. 2. Moderate underlying microangiopathy and generalized cerebral volume loss. Chronic lacunar infarct of the left caudate head. Medications Medications Current Medications Acetaminophen (Acetaminophen 325 Mg Tablet) 975 mg PO TID PRN PRN Reason: Pain, Mild Last Admin: 11/20/22 20:50 Dose: 975 mg Al Hydroxide/Mg Hydroxide (Magnesium Hydrox/Alum Hydrox 30 Ml Oral.Susp) 30 ml PO Q6H PRN PRN Reason: Heartburn/Nausea Amitriptyline HCl (Amitriptyline Hcl 10 Mg Tablet) 10 mg PO BEDTIME [facility] Last Admin: 11/21/22 20:01 Dose: 10 mg Calcium Carbonate/Cholecalciferol (Calcium + Vitamin D 250 Mg Tablet) 250 mg PO BID [facility] Last Admin: 11/21/22 20:01 Dose: 250 mg Clonidine HCl (Clonidine Hcl 0.1 Mg Tablet) 0.1 mg PO TID PRN; Protocol PRN Reason: anxiety/SBP>160 Last Admin: 11/19/22 19:19 Dose: 0.1 mg Cyclobenzaprine HCl (Cyclobenzaprine Hcl 5 Mg Tablet) 5 mg PO BID PRN PRN Reason: Muscle Spasm Last Admin: 11/21/22 20:04 Dose: 5 mg Divalproex Sodium (Divalproex Sodium Er 250 Mg Tab.Er.24h) 1,250 mg PO BEDTIME [facility] Last Admin: 11/21/22 20:03 Dose: 1,250 mg Famotidine (Famotidine 20 Mg Tablet) 20 mg PO DAILY@0630 [facility] Last Admin: 11/21/22 05:34 Dose: 20 mg Gabapentin (Gabapentin 300 Mg Capsule) 900 mg PO BID@0900,1700 [facility] Last Admin: 11/21/22 17:37 Dose: 900 mg Gabapentin (Gabapentin 400 Mg Capsule) 1,200 mg PO BEDTIME [facility] Last Admin: 11/21/22 20:02 Dose: 1,200 mg Hydroxyzine HCl (Hydroxyzine Hcl 25 Mg Tablet) 25 mg PO Q6H PRN PRN Reason: Anxiety Magnesium Hydroxide (Milk Of Magnesia 30 Ml Oral.Susp) 30 ml PO DAILY PRN PRN Reason: Constipation Last Admin: 11/20/22 14:21 Dose: 30 ml Magnesium Oxide (Magnesium Oxide 400 Mg Tablet) 400 mg PO DAILY [facility] Last Admin: 11/21/22 08:43 Dose: 400 mg Melatonin (Melatonin 3 Mg Tablet) 6 mg PO BEDTIME PRN PRN Reason: Sleep Last Admin: 11/20/22 20:51 Dose: 6 mg Methadone HCl (Methadone Hcl 20 Mg/2 Ml Oral.Conc) 28 mg PO DAILY [facility] Last Admin: 11/21/22 08:43 Dose: 28 mg Naproxen (Naproxen 250 Mg Tablet) 250 mg PO DAILY PRN PRN Reason: Pain, Mild Last Admin: 11/21/22 17:37 Dose: 250 mg Nicotine (Nicotine 14 Mg Patch.Td24) 14 mg TRANSDERMA DAILY [facility] Last Admin: 11/21/22 09:57 Dose: 14 mg Pharmacy Consult (Consult Rx Perform Med Rec) 1 each MISCELLANE ONCE PRN PRN Reason: Consult order Quetiapine Fumarate (Quetiapine Fumarate 200 Mg Tablet) 200 mg PO BEDTIME [facility] Last Admin: 11/21/22 20:01 Dose: 200 mg Senna/Docusate Sodium (Sennosides/Docusate Sodium Tablet) 2 tab PO BID [facility] Last Admin: 11/21/22 20:02 Dose: 2 tab Trazodone HCl (Trazodone Hcl 50 Mg Tablet) 50 mg PO BEDTIME MRX1 PRN PRN Reason: Insomnia Allergies Allergies Allergy/AdvReac Type Severity Reaction Status Date / Time No Known Allergies Allergy Unverified 02/16/20 15:59 [No Known Allergies*] Assessment & Plan Assessment & Plan (1) Bipolar 1 disorder, depressed: Status: Acute Code(s): F31.9 - Bipolar disorder, unspecified (2) Opioid use disorder, severe, on maintenance therapy: Status: Acute Code(s): F11.20 - Opioid dependence, uncomplicated Plan Mr. Pascal is a 72 year-old male with hx of opioid use disorder, Bipolar disorder who was was unresponsive in public transportation. In the ED, low respiration rate, pin point pupils, unresponsive but responded quickly to narcan 4mg. Utox positive for opioids and fentanyl. Pt reported he had intentional OD on heroin as suicide attempt. On the unit, pt continues to report depressed mood increase suicidal ideation for the past 10 days, no clear trigger, reports chronic pain (arthritis and chronic headaches). However, he reports he had 14 bags of heroin and took bus to return home from [facility]. PLAN 11/20 switch depakote to night time. Left message with call back number to Dr. Torre (pt's long standing psychiatrist- consider adding antidepressant). continue other medications. 11/21 will start cymbalta 20mg po daily for depression. note that he is also on amitrityline- may want to do one or the other not both depending on how pt responds. Reason for continued inpatient stay Substantial Risk for: inability to function Time Spent With Patient Time: Total time managing care of this patient today ____ minutes.
[2022-11-22] MEDS: Famotidine 20 MG TABLET PO (06:18)
[2022-11-22 07:45] VITALS: BP 157/78; PULSE 71; RESP 18; TEMP 36.4; O2SAT 99
[2022-11-22] MEDS: Sennosides/Docusate Sodium TABLET 2 TAB PO ×2 (08:08→20:23)
[2022-11-22] MEDS: DULoxetine HCl 20 MG CAPSULE.DR PO (08:08)
[2022-11-22] MEDS: Gabapentin 300 MG CAPSULE 900 MG PO ×2 (08:09→16:44)
[2022-11-22] MEDS: Nicotine 14 MG PATCH.TD24 TRANSDERMA (08:09)
[2022-11-22] MEDS: Magnesium Oxide 400 MG TABLET PO (08:09)
[2022-11-22] MEDS: Calcium + Vitamin D 250 MG TABLET PO ×2 (08:09→20:23)
[2022-11-22] MEDS: methADONE HCl 20 MG/2 ML ORAL.CONC 28 MG PO (08:10)
[2022-11-22] MEDS: hydrOXYzine HCL 25 MG TABLET PO (10:10)
--- NOTE | 2022-11-22 11:56 | HO.PSYCHPN ---
Subjective Subjective Date of Service: 11/22/22 Reason For Visit: OD Interim History: c/o poor sleep. open to have VPA level checked tonight and increase dose if there is room. states he has been taking the same dose of VPA for a long time. per staff, pleasant, approachable. +dep/anx. passive SI. slept. + meds. Mental Status Exam Mental Status Exam Narrative: Appearance: wearing casual clothing, fair hygiene, in NAD Behaviors: cooperative Psychomotor: no retardation or agitation noted Speech: clear, normal rate/rhythm/volume, spontaneous TP: linear TC: no psychosis, feeling depressed Mood: depressed Affect: congruent SI: passive HI: none expressed VH/AH: none expressed Delusions: none Insight/judgment: fair x 2. Memory/cog: alert, oriented x 3. grossly intact to conversational tesing. Diagnostics Vital Signs (24Hr): Vital Signs - 24 hr 11/21/22 18:00 11/22/22 07:45 Temperature 97 F 97.6 F Pulse Rate 64 71 Respiratory Rate 14 18 Blood Pressure 143/86 H 157/78 H Pulse Oximetry 97 99 Oxygen Delivery Method Room Air Room Air BMI result Body Mass Index 25.7 Labs 11/18/22 13:59 11/20/22 08:00 Imaging Radiology Impressions: ITS Impressions Chest X-Ray 11/18/22 15:00 IMPRESSION: Patchy airspace disease in the right lung base, suspicious for pneumonia. Head CT 11/19/22 15:51 IMPRESSION: 1. No evidence of acute intracranial hemorrhage or edematous territorial infarction. 2. Moderate underlying microangiopathy and generalized cerebral volume loss. Chronic lacunar infarct of the left caudate head. Medications Medications Current Medications Acetaminophen (Acetaminophen 325 Mg Tablet) 975 mg PO TID PRN PRN Reason: Pain, Mild Last Admin: 11/20/22 20:50 Dose: 975 mg Al Hydroxide/Mg Hydroxide (Magnesium Hydrox/Alum Hydrox 30 Ml Oral.Susp) 30 ml PO Q6H PRN PRN Reason: Heartburn/Nausea Amitriptyline HCl (Amitriptyline Hcl 10 Mg Tablet) 10 mg PO BEDTIME ON LICENSE OF [facility] Last Admin: 11/21/22 20:01 Dose: 10 mg Calcium Carbonate/Cholecalciferol (Calcium + Vitamin D 250 Mg Tablet) 250 mg PO BID ON [facility] OF [facility] Last Admin: 11/22/22 08:09 Dose: 250 mg Clonidine HCl (Clonidine Hcl 0.1 Mg Tablet) 0.1 mg PO TID PRN; Protocol PRN Reason: anxiety/SBP>160 Last Admin: 11/19/22 19:19 Dose: 0.1 mg Cyclobenzaprine HCl (Cyclobenzaprine Hcl 5 Mg Tablet) 5 mg PO BID PRN PRN Reason: Muscle Spasm Last Admin: 11/21/22 20:04 Dose: 5 mg Divalproex Sodium (Divalproex Sodium Er 250 Mg Tab.Er.24h) 1,250 mg PO BEDTIME ON [facility] Last Admin: 11/21/22 20:03 Dose: 1,250 mg Duloxetine HCl (Duloxetine Hcl 20 Mg Capsule.Dr) 20 mg PO DAILY ON [facility] OF [facility] Last Admin: 11/22/22 08:08 Dose: 20 mg Famotidine (Famotidine 20 Mg Tablet) 20 mg PO DAILY@0630 [facility] Last Admin: 11/22/22 06:18 Dose: 20 mg Gabapentin (Gabapentin 300 Mg Capsule) 900 mg PO BID@0900,1700 [facility] Last Admin: 11/22/22 08:09 Dose: 900 mg Gabapentin (Gabapentin 400 Mg Capsule) 1,200 mg PO BEDTIME ON [facility] Last Admin: 11/21/22 20:02 Dose: 1,200 mg Hydroxyzine HCl (Hydroxyzine Hcl 25 Mg Tablet) 25 mg PO Q6H PRN PRN Reason: Anxiety Last Admin: 11/22/22 10:10 Dose: 25 mg Magnesium Hydroxide (Milk Of Magnesia 30 Ml Oral.Susp) 30 ml PO DAILY PRN PRN Reason: Constipation Last Admin: 11/20/22 14:21 Dose: 30 ml Magnesium Oxide (Magnesium Oxide 400 Mg Tablet) 400 mg PO DAILY [facility] Last Admin: 11/22/22 08:09 Dose: 400 mg Melatonin (Melatonin 3 Mg Tablet) 6 mg PO BEDTIME PRN PRN Reason: Sleep Last Admin: 11/20/22 20:51 Dose: 6 mg Methadone HCl (Methadone Hcl 20 Mg/2 Ml Oral.Conc) 28 mg PO DAILY [facility] Last Admin: 11/22/22 08:10 Dose: 28 mg Naproxen (Naproxen 250 Mg Tablet) 250 mg PO DAILY PRN PRN Reason: Pain, Mild Last Admin: 11/21/22 17:37 Dose: 250 mg Nicotine (Nicotine 14 Mg Patch.Td24) 14 mg TRANSDERMA DAILY [facility] Last Admin: 11/22/22 08:09 Dose: 14 mg Pharmacy Consult (Consult Rx Perform Med Rec) 1 each MISCELLANE ONCE PRN PRN Reason: Consult order Quetiapine Fumarate (Quetiapine Fumarate 200 Mg Tablet) 200 mg PO BEDTIME ON [facility] OF [facility] Last Admin: 11/21/22 20:01 Dose: 200 mg Senna/Docusate Sodium (Sennosides/Docusate Sodium Tablet) 2 tab PO BID ON [facility] Last Admin: 11/22/22 08:08 Dose: 2 tab Trazodone HCl (Trazodone Hcl 50 Mg Tablet) 50 mg PO BEDTIME MRX1 PRN PRN Reason: Insomnia Allergies Allergies Allergy/AdvReac Type Severity Reaction Status Date / Time No Known Allergies Allergy Unverified 02/16/20 15:59 [No Known Allergies*] Assessment & Plan Assessment & Plan (1) Bipolar 1 disorder, depressed: Status: Acute Code(s): F31.9 - Bipolar disorder, unspecified (2) Opioid use disorder, severe, on maintenance therapy: Status: Acute Code(s): F11.20 - Opioid dependence, uncomplicated Plan Mr. Pascal is a 72 year-old male with hx of opioid use disorder, Bipolar disorder who was was unresponsive in public transportation. In the ED, low respiration rate, pin point pupils, unresponsive but responded quickly to narcan 4mg. Utox positive for opioids and fentanyl. Pt reported he had intentional OD on heroin as suicide attempt. On the unit, pt continues to report depressed mood increase suicidal ideation for the past 10 days, no clear trigger, reports chronic pain (arthritis and chronic headaches). However, he reports he had 14 bags of heroin and took bus to return home from [facility]. PLAN 11/20 switch depakote to night time. Left message with call back number to Dr. Torre (pt's long standing psychiatrist- consider adding antidepressant). continue other medications. 11/21 will start cymbalta 20mg po daily for depression. note that he is also on amitrityline- may want to do one or the other not both depending on how pt responds. 11/22: c/o insomnia. check VPA level tonight and increase if indicated. c/o depression. Reason for continued inpatient stay Substantial Risk for: harm to self, inability to function and rapid decompensation Time Spent With Patient Time: Total time managing care of this patient today ____ minutes.
[2022-11-22] MEDS: Acetaminophen 325 MG TABLET 975 MG PO (12:55)
[2022-11-22 20:15] VITALS: BP 130/82; PULSE 63; RESP 18; TEMP 37.1; O2SAT 98
[2022-11-22] MEDS: Divalproex Sodium ER 250 MG TAB.ER.24H 1250 MG PO (20:23)
[2022-11-22] MEDS: Gabapentin 400 MG CAPSULE 1200 MG PO (20:24)
[2022-11-22] MEDS: QUEtiapine Fumarate 200 MG TABLET PO (20:24)
[2022-11-22] MEDS: Amitriptyline HCl 10 MG TABLET PO (20:24)
[2022-11-22] MEDS: Cyclobenzaprine HCl 5 MG TABLET PO (21:32)
[2022-11-22] MEDS: Melatonin 3 MG TABLET 6 MG PO (21:32)
[2022-11-23] MEDS: Famotidine 20 MG TABLET PO (06:01)
[2022-11-23] MEDS: Milk of Magnesia 30 ML ORAL.SUSP PO (06:04)
[2022-11-23 08:05] VITALS: BP 126/74; PULSE 69; RESP 18; TEMP 36.2; O2SAT 99
[2022-11-23] MEDS: methADONE HCl 20 MG/2 ML ORAL.CONC 28 MG PO (08:19)
[2022-11-23] MEDS: Magnesium Oxide 400 MG TABLET PO (08:20)
[2022-11-23] MEDS: Calcium + Vitamin D 250 MG TABLET PO ×2 (08:20→20:28)
[2022-11-23] MEDS: DULoxetine HCl 20 MG CAPSULE.DR PO (08:20)
[2022-11-23] MEDS: Gabapentin 300 MG CAPSULE 900 MG PO (08:21)
[2022-11-23] MEDS: Sennosides/Docusate Sodium TABLET 2 TAB PO ×2 (08:21→20:27)
[2022-11-23] MEDS: Nicotine 14 MG PATCH.TD24 TRANSDERMA (08:30)
--- NOTE | 2022-11-23 10:35 | P.PNPSI_ITS ---
Subjective Subjective Date of Service: 11/23/22 Reason For Visit: OD Interim History: pt resting in bed mid-morning. states he slept better last night. c/o left facial pain, chronic for half a century. encouraged to see Dr. Contreras, Neuro at [facility], for F/U. per staff, stable, taking meds, slept well. Mental Status Exam Mental Status Exam Narrative: Appearance: wearing casual clothing, fair hygiene, in NAD Behaviors: cooperative Psychomotor: no retardation or agitation noted Speech: clear, normal rate/rhythm/volume, spontaneous TP: linear TC: no psychosis, feeling depressed Mood: OK right now. Affect: congruent SI: passive HI: none expressed VH/AH: none expressed Delusions: none Insight/judgment: fair x 2. Memory/cog: alert, oriented x 3. grossly intact to conversational testing. Diagnostics Vital Signs (24Hr): Vital Signs - 24 hr 11/22/22 20:15 11/23/22 08:05 Temperature 98.7 F 97.2 F Pulse Rate 63 69 Respiratory Rate 18 18 Blood Pressure 130/82 126/74 Pulse Oximetry 98 99 Oxygen Delivery Method Room Air Room Air BMI result Body Mass Index 25.7 Labs 11/18/22 13:59 11/20/22 08:00 Labs: Laboratory Results - last 48 hr 11/22/22 20:29 Valproic Acid 46.0 L Imaging Radiology Impressions: ITS Impressions Chest X-Ray 11/18/22 15:00 IMPRESSION: Patchy airspace disease in the right lung base, suspicious for pneumonia. Head CT 11/19/22 15:51 IMPRESSION: 1. No evidence of acute intracranial hemorrhage or edematous territorial infarction. 2. Moderate underlying microangiopathy and generalized cerebral volume loss. Chronic lacunar infarct of the left caudate head. Medications Medications Current Medications Acetaminophen (Acetaminophen 325 Mg Tablet) 975 mg PO TID PRN PRN Reason: Pain, Mild Last Admin: 11/22/22 12:55 Dose: 975 mg Al Hydroxide/Mg Hydroxide (Magnesium Hydrox/Alum Hydrox 30 Ml Oral.Susp) 30 ml PO Q6H PRN PRN Reason: Heartburn/Nausea Amitriptyline HCl (Amitriptyline Hcl 10 Mg Tablet) 10 mg PO BEDTIME [facility] Last Admin: 11/22/22 20:24 Dose: 10 mg Calcium Carbonate/Cholecalciferol (Calcium + Vitamin D 250 Mg Tablet) 250 mg PO BID [facility] Last Admin: 11/23/22 08:20 Dose: 250 mg Clonidine HCl (Clonidine Hcl 0.1 Mg Tablet) 0.1 mg PO TID PRN; Protocol PRN Reason: anxiety/SBP>160 Last Admin: 11/19/22 19:19 Dose: 0.1 mg Cyclobenzaprine HCl (Cyclobenzaprine Hcl 5 Mg Tablet) 5 mg PO BID PRN PRN Reason: Muscle Spasm Last Admin: 11/22/22 21:32 Dose: 5 mg Divalproex Sodium (Divalproex Sodium Er 250 Mg Tab.Er.24h) 1,250 mg PO BEDTIME [facility] Last Admin: 11/22/22 20:23 Dose: 1,250 mg Duloxetine HCl (Duloxetine Hcl 20 Mg Capsule.Dr) 20 mg PO DAILY [facility] Last Admin: 11/23/22 08:20 Dose: 20 mg Famotidine (Famotidine 20 Mg Tablet) 20 mg PO DAILY@0630 [facility] Last Admin: 11/23/22 06:01 Dose: 20 mg Gabapentin (Gabapentin 300 Mg Capsule) 900 mg PO BID@0900,1700 [facility] Last Admin: 11/23/22 08:21 Dose: 900 mg Gabapentin (Gabapentin 400 Mg Capsule) 1,200 mg PO BEDTIME [facility] Last Admin: 11/22/22 20:24 Dose: 1,200 mg Hydroxyzine HCl (Hydroxyzine Hcl 25 Mg Tablet) 25 mg PO Q6H PRN PRN Reason: Anxiety Last Admin: 11/22/22 10:10 Dose: 25 mg Magnesium Hydroxide (Milk Of Magnesia 30 Ml Oral.Susp) 30 ml PO DAILY PRN PRN Reason: Constipation Last Admin: 11/23/22 06:04 Dose: 30 ml Magnesium Oxide (Magnesium Oxide 400 Mg Tablet) 400 mg PO DAILY [facility] Last Admin: 11/23/22 08:20 Dose: 400 mg Melatonin (Melatonin 3 Mg Tablet) 6 mg PO BEDTIME PRN PRN Reason: Sleep Last Admin: 11/22/22 21:32 Dose: 6 mg Methadone HCl (Methadone Hcl 20 Mg/2 Ml Oral.Conc) 28 mg PO DAILY [facility] Last Admin: 11/23/22 08:19 Dose: 28 mg Naproxen (Naproxen 250 Mg Tablet) 250 mg PO DAILY PRN PRN Reason: Pain, Mild Last Admin: 11/21/22 17:37 Dose: 250 mg Nicotine (Nicotine 14 Mg Patch.Td24) 14 mg TRANSDERMA DAILY [facility] Last Admin: 11/23/22 08:30 Dose: 14 mg Pharmacy Consult (Consult Rx Perform Med Rec) 1 each MISCELLANE ONCE PRN PRN Reason: Consult order Quetiapine Fumarate (Quetiapine Fumarate 200 Mg Tablet) 200 mg PO BEDTIME [facility] Last Admin: 11/22/22 20:24 Dose: 200 mg Senna/Docusate Sodium (Sennosides/Docusate Sodium Tablet) 2 tab PO BID [facility] Last Admin: 11/23/22 08:21 Dose: 2 tab Trazodone HCl (Trazodone Hcl 50 Mg Tablet) 50 mg PO BEDTIME MRX1 PRN PRN Reason: Insomnia Allergies Allergies Allergy/AdvReac Type Severity Reaction Status Date / Time No Known Allergies Allergy Unverified 02/16/20 15:59 [No Known Allergies*] Assessment & Plan Assessment & Plan (1) Bipolar 1 disorder, depressed: Status: Acute Code(s): F31.9 - Bipolar disorder, unspecified (2) Opioid use disorder, severe, on maintenance therapy: Status: Acute Code(s): F11.20 - Opioid dependence, uncomplicated Plan Mr. Pascal is a 72 year-old male with hx of opioid use disorder, Bipolar disorder who was was unresponsive in public transportation. In the ED, low respiration rate, pin point pupils, unresponsive but responded quickly to narcan 4mg. Utox positive for opioids and fentanyl. Pt reported he had intentional OD on heroin as suicide attempt. On the unit, pt continues to report depressed mood increase suicidal ideation for the past 10 days, no clear trigger, reports chronic pain (arthritis and chronic headaches). However, he reports he had 14 bags of heroin and took bus to return home from [place] to [place]. PLAN 11/20 switch depakote to night time. Left message with call back number to Dr. Torre (pt's long standing psychiatrist- consider adding antidepressant). continue other medications. 11/21 will start cymbalta 20mg po daily for depression. note that he is also on amitrityline- may want to do one or the other not both depending on how pt responds. 11/22: c/o insomnia. check VPA level tonight and increase if indicated. c/o depression. 11/23: VPA level 46. increase dosing from 1250 QHS to 1500 QHS as of tonight. otherwise continue current mgmt. Reason for continued inpatient stay Substantial Risk for: inability to function and rapid decompensation Time Spent With Patient Time: Total time managing care of this patient today ____ minutes.
[2022-11-23] MEDS: Acetaminophen 325 MG TABLET 975 MG PO (13:52)
[2022-11-23 18:00] VITALS: BP 129/60; PULSE 66; RESP 18; TEMP 36.6; O2SAT 98
[2022-11-23] MEDS: NaPROXEN 250 MG TABLET PO (20:21)
[2022-11-23] MEDS: Divalproex Sodium ER 500 MG TAB.ER.24H 1500 MG PO (20:23)
[2022-11-23] MEDS: Gabapentin 400 MG CAPSULE 1200 MG PO (20:26)
[2022-11-23] MEDS: Amitriptyline HCl 10 MG TABLET PO (20:28)
[2022-11-23] MEDS: QUEtiapine Fumarate 200 MG TABLET PO (20:28)
[2022-11-23] MEDS: Melatonin 3 MG TABLET 6 MG PO (20:54)
[2022-11-24] MEDS: Famotidine 20 MG TABLET PO (06:18)
[2022-11-24 08:18] VITALS: BP 126/75; PULSE 69; RESP 18; TEMP 36.1; O2SAT 97
[2022-11-24] MEDS: Nicotine 14 MG PATCH.TD24 TRANSDERMA (08:56)
[2022-11-24] MEDS: Magnesium Oxide 400 MG TABLET PO (08:57)
[2022-11-24] MEDS: Calcium + Vitamin D 250 MG TABLET PO ×2 (08:57→21:11)
[2022-11-24] MEDS: Sennosides/Docusate Sodium TABLET 2 TAB PO ×2 (08:57→21:09)
[2022-11-24] MEDS: DULoxetine HCl 20 MG CAPSULE.DR PO (08:57)
[2022-11-24] MEDS: Gabapentin 300 MG CAPSULE 900 MG PO ×2 (08:58→17:17)
[2022-11-24] MEDS: methADONE HCl 20 MG/2 ML ORAL.CONC 28 MG PO (09:01)
[2022-11-24] MEDS: Lactulose 20 GM/30 ML SOLUTION PO (09:53)
[2022-11-24] MEDS: Acetaminophen 325 MG TABLET 975 MG PO (15:29)
[2022-11-24] MEDS: Cyclobenzaprine HCl 5 MG TABLET PO (15:29)
[2022-11-24 18:00] VITALS: BP 130/61; PULSE 73; RESP 16; TEMP 35.8; O2SAT 98
[2022-11-24] MEDS: Divalproex Sodium ER 500 MG TAB.ER.24H 1500 MG PO (21:08)
[2022-11-24] MEDS: Gabapentin 400 MG CAPSULE 1200 MG PO (21:09)
[2022-11-24] MEDS: Amitriptyline HCl 10 MG TABLET PO (21:10)
[2022-11-24] MEDS: QUEtiapine Fumarate 200 MG TABLET PO (21:11)
--- NOTE | 2022-11-24 21:17 | HO.PSYCHPN ---
Subjective Subjective Date of Service: 11/24/22 Reason For Visit: OD Subjective Notes: Conditional Voluntary Interim History: Pt denies SI/HI. He reports sleep has been fair for past 2 years, difficulty falling asleep and staying asleep. No VH/AH. He reports constipation- no abdominal pain, passing flatus, last BM 3 days ago. We discussed increasing cymbalta to 40mg po daily- will try d/c amitriptyline but with undertanding that if cymbalta at more therapeutic doses not effecting for depression and some pain, then he can go back to amitriptyline. Per nursing, pt visible at times. no behavioral concerns. Review of Systems Review of Systems Pt reports headache-chronic left side pain and tinnitus since exposed to blasting sounds while in . No changes in vision. Pt reports tight chest but denies pt, think this is anxiety and relief by benzo. Denies difficulty urinating. He does report constipation. No vomiting. Mental Status Exam Mental Status Exam Narrative: Appearance: wearing casual clothing, fair hygiene, in NAD Behaviors: cooperative Psychomotor: no retardation or agitation noted Speech: clear, normal rate/rhythm/volume, spontaneous TP: linear TC: no psychosis, feeling depressed Mood: OK right now. Affect: congruent SI: passive HI: none expressed VH/AH: none expressed Delusions: none Insight/judgment: fair x 2. Memory/cog: alert, oriented x 3. grossly intact to conversational testing. Diagnostics Vital Signs (24Hr): Vital Signs - 24 hr 11/24/22 08:18 Temperature 97.0 F Pulse Rate 69 Respiratory Rate 18 Blood Pressure 126/75 Pulse Oximetry 97 Oxygen Delivery Method Room Air BMI result Body Mass Index 25.7 Labs 11/18/22 13:59 11/20/22 08:00 Imaging Radiology Impressions: ITS Impressions Chest X-Ray 11/18/22 15:00 IMPRESSION: Patchy airspace disease in the right lung base, suspicious for pneumonia. Head CT 11/19/22 15:51 IMPRESSION: 1. No evidence of acute intracranial hemorrhage or edematous territorial infarction. 2. Moderate underlying microangiopathy and generalized cerebral volume loss. Chronic lacunar infarct of the left caudate head. Medications Medications Current Medications Acetaminophen (Acetaminophen 325 Mg Tablet) 975 mg PO TID PRN PRN Reason: Pain, Mild Last Admin: 11/24/22 15:29 Dose: 975 mg Al Hydroxide/Mg Hydroxide (Magnesium Hydrox/Alum Hydrox 30 Ml Oral.Susp) 30 ml PO Q6H PRN PRN Reason: Heartburn/Nausea Amitriptyline HCl (Amitriptyline Hcl 10 Mg Tablet) 10 mg PO BEDTIME [facility] Last Admin: 11/24/22 21:10 Dose: 10 mg Calcium Carbonate/Cholecalciferol (Calcium + Vitamin D 250 Mg Tablet) 250 mg PO BID [facility] Last Admin: 11/24/22 21:11 Dose: 250 mg Clonidine HCl (Clonidine Hcl 0.1 Mg Tablet) 0.1 mg PO TID PRN; Protocol PRN Reason: anxiety/SBP>160 Last Admin: 11/19/22 19:19 Dose: 0.1 mg Cyclobenzaprine HCl (Cyclobenzaprine Hcl 5 Mg Tablet) 5 mg PO BID PRN PRN Reason: Muscle Spasm Last Admin: 11/24/22 15:29 Dose: 5 mg Divalproex Sodium (Divalproex Sodium Er 500 Mg Tab.Er.24h) 1,500 mg PO BEDTIME [facility] Last Admin: 11/24/22 21:08 Dose: 1,500 mg Duloxetine HCl (Duloxetine Hcl 20 Mg Capsule.Dr) 20 mg PO DAILY [facility] Last Admin: 11/24/22 08:57 Dose: 20 mg Famotidine (Famotidine 20 Mg Tablet) 20 mg PO DAILY@0630 [facility] Last Admin: 11/24/22 06:18 Dose: 20 mg Gabapentin (Gabapentin 300 Mg Capsule) 900 mg PO BID@0900,1700 [facility] Last Admin: 11/24/22 17:17 Dose: 900 mg Gabapentin (Gabapentin 400 Mg Capsule) 1,200 mg PO BEDTIME [facility] Last Admin: 11/24/22 21:09 Dose: 1,200 mg Hydroxyzine HCl (Hydroxyzine Hcl 25 Mg Tablet) 25 mg PO Q6H PRN PRN Reason: Anxiety Last Admin: 11/22/22 10:10 Dose: 25 mg Magnesium Hydroxide (Milk Of Magnesia 30 Ml Oral.Susp) 30 ml PO DAILY PRN PRN Reason: Constipation Last Admin: 11/23/22 06:04 Dose: 30 ml Magnesium Oxide (Magnesium Oxide 400 Mg Tablet) 400 mg PO DAILY [facility] Last Admin: 11/24/22 08:57 Dose: 400 mg Melatonin (Melatonin 3 Mg Tablet) 6 mg PO BEDTIME PRN PRN Reason: Sleep Last Admin: 11/23/22 20:54 Dose: 6 mg Methadone HCl (Methadone Hcl 20 Mg/2 Ml Oral.Conc) 28 mg PO DAILY [facility] Last Admin: 11/24/22 09:01 Dose: 28 mg Naproxen (Naproxen 250 Mg Tablet) 250 mg PO DAILY PRN PRN Reason: Pain, Mild Last Admin: 11/23/22 20:21 Dose: 250 mg Nicotine (Nicotine 14 Mg Patch.Td24) 14 mg TRANSDERMA DAILY [facility] Last Admin: 11/24/22 08:56 Dose: 14 mg Pharmacy Consult (Consult Rx Perform Med Rec) 1 each MISCELLANE ONCE PRN PRN Reason: Consult order Quetiapine Fumarate (Quetiapine Fumarate 200 Mg Tablet) 200 mg PO BEDTIME [facility] Last Admin: 11/24/22 21:11 Dose: 200 mg Senna/Docusate Sodium (Sennosides/Docusate Sodium Tablet) 2 tab PO BID [facility] Last Admin: 11/24/22 21:09 Dose: 2 tab Trazodone HCl (Trazodone Hcl 50 Mg Tablet) 50 mg PO BEDTIME PRN PRN Reason: Insomnia Allergies Allergies Allergy/AdvReac Type Severity Reaction Status Date / Time No Known Allergies Allergy Unverified 02/16/20 15:59 [No Known Allergies*] Assessment & Plan Assessment & Plan (1) Bipolar 1 disorder, depressed: Status: Acute Code(s): F31.9 - Bipolar disorder, unspecified (2) Opioid use disorder, severe, on maintenance therapy: Status: Acute Code(s): F11.20 - Opioid dependence, uncomplicated Plan Mr. Pascal is a 72 year-old male with hx of opioid use disorder, Bipolar disorder who was was unresponsive in public transportation. In the ED, low respiration rate, pin point pupils, unresponsive but responded quickly to narcan 4mg. Utox positive for opioids and fentanyl. Pt reported he had intentional OD on heroin as suicide attempt. On the unit, pt continues to report depressed mood increase suicidal ideation for the past 10 days, no clear trigger, reports chronic pain (arthritis and chronic headaches). However, he reports he had 14 bags of heroin and took bus to return home from [place] to [place]. PLAN 11/20 switch depakote to night time. Left message with call back number to Dr. Torre (pt's long standing psychiatrist- consider adding antidepressant). continue other medications. 11/21 will start cymbalta 20mg po daily for depression. note that he is also on amitrityline- may want to do one or the other not both depending on how pt responds 11/22: c/o insomnia. check VPA level tonight and increase if indicated. c/o depression. 11/23: VPA level 46. increase dosing from 1250 QHS to 1500 QHS as of tonight. otherwise continue current mgmt. 11/24 increase cymbalta to 40mg po daily. will dc amitriptyline but if cymbalta not effective at therapeutic doses can switch back to amitriptyline. Reason for continued inpatient stay Substantial Risk for: inability to function Time Spent With Patient Time: Total time managing care of this patient today ____ minutes.
[2022-11-25] MEDS: Famotidine 20 MG TABLET PO (05:34)
[2022-11-25 07:30] VITALS: BP 135/79; PULSE 77; RESP 18; TEMP 36.3; O2SAT 99
[2022-11-25] MEDS: Nicotine 14 MG PATCH.TD24 TRANSDERMA (08:45)
[2022-11-25] MEDS: methADONE HCl 20 MG/2 ML ORAL.CONC 28 MG PO (08:45)
[2022-11-25] MEDS: DULoxetine HCl 20 MG CAPSULE.DR 40 MG PO (08:46)
[2022-11-25] MEDS: Magnesium Oxide 400 MG TABLET PO (08:46)
[2022-11-25] MEDS: Gabapentin 300 MG CAPSULE 900 MG PO ×2 (08:46→16:19)
[2022-11-25] MEDS: Calcium + Vitamin D 250 MG TABLET PO ×2 (08:47→21:30)
[2022-11-25] MEDS: Sennosides/Docusate Sodium TABLET 2 TAB PO ×2 (10:51→21:28)
[2022-11-25] MEDS: NaPROXEN 250 MG TABLET PO (14:13)
--- NOTE | 2022-11-25 14:37 | HO.PSYCHPN ---
Subjective Subjective Date of Service: 11/25/22 Reason For Visit: OD Subjective Notes: Conditional Voluntary Interim History: Pt denies SI/HI. He reports he was able to sleep last night from midnight to 6am this morning. He does report feeling tired after breakfast. He denies any safety concerns and agrees with return home. He agrees to continue OP psych tx. No behavioral concerns. Medication Compliance: Yes Review of Systems Review of Systems Pt reports headache-chronic left side pain and tinnitus since exposed to blasting sounds while in . No changes in vision. Pt reports tight chest but denies pt, think this is anxiety and relief by benzo. Denies difficulty urinating. He does report constipation. No vomiting. Mental Status Exam Mental Status Exam Narrative: Appearance: wearing casual clothing, fair hygiene, in NAD Behaviors: cooperative Psychomotor: no retardation or agitation noted Speech: clear, normal rate/rhythm/volume, spontaneous TP: linear TC: no psychosis, feeling depressed Mood: Good Affect: congruent SI: denies HI: none expressed VH/AH: none expressed Delusions: none Insight/judgment: fair x 2. Memory/cog: alert, oriented x 3. grossly intact to conversational testing. Diagnostics Vital Signs (24Hr): Vital Signs - 24 hr 11/24/22 18:00 11/25/22 07:30 Temperature 96.4 F L 97.4 F Pulse Rate 73 77 Respiratory Rate 16 18 Blood Pressure 130/61 135/79 Pulse Oximetry 98 99 Oxygen Delivery Method Room Air Room Air BMI result Body Mass Index 25.7 Labs 11/18/22 13:59 11/20/22 08:00 Imaging Radiology Impressions: ITS Impressions Chest X-Ray 11/18/22 15:00 IMPRESSION: Patchy airspace disease in the right lung base, suspicious for pneumonia. Head CT 11/19/22 15:51 IMPRESSION: 1. No evidence of acute intracranial hemorrhage or edematous territorial infarction. 2. Moderate underlying microangiopathy and generalized cerebral volume loss. Chronic lacunar infarct of the left caudate head. Medications Medications Current Medications Acetaminophen (Acetaminophen 325 Mg Tablet) 975 mg PO TID PRN PRN Reason: Pain, Mild Last Admin: 11/24/22 15:29 Dose: 975 mg Al Hydroxide/Mg Hydroxide (Magnesium Hydrox/Alum Hydrox 30 Ml Oral.Susp) 30 ml PO Q6H PRN PRN Reason: Heartburn/Nausea Calcium Carbonate/Cholecalciferol (Calcium + Vitamin D 250 Mg Tablet) 250 mg PO BID [facility] Last Admin: 11/25/22 08:47 Dose: 250 mg Clonidine HCl (Clonidine Hcl 0.1 Mg Tablet) 0.1 mg PO TID PRN; Protocol PRN Reason: anxiety/SBP>160 Last Admin: 11/19/22 19:19 Dose: 0.1 mg Cyclobenzaprine HCl (Cyclobenzaprine Hcl 5 Mg Tablet) 5 mg PO BID PRN PRN Reason: Muscle Spasm Last Admin: 11/24/22 15:29 Dose: 5 mg Divalproex Sodium (Divalproex Sodium Er 500 Mg Tab.Er.24h) 1,500 mg PO BEDTIME [facility] Last Admin: 11/24/22 21:08 Dose: 1,500 mg Duloxetine HCl (Duloxetine Hcl 20 Mg Capsule.Dr) 40 mg PO DAILY [facility] Last Admin: 11/25/22 08:46 Dose: 40 mg Famotidine (Famotidine 20 Mg Tablet) 20 mg PO DAILY@0630 [facility] Last Admin: 11/25/22 05:34 Dose: 20 mg Gabapentin (Gabapentin 300 Mg Capsule) 900 mg PO BID@0900,1700 [facility] Last Admin: 11/25/22 08:46 Dose: 900 mg Gabapentin (Gabapentin 400 Mg Capsule) 1,200 mg PO BEDTIME [facility] Last Admin: 11/24/22 21:09 Dose: 1,200 mg Hydroxyzine HCl (Hydroxyzine Hcl 25 Mg Tablet) 25 mg PO Q6H PRN PRN Reason: Anxiety Last Admin: 11/22/22 10:10 Dose: 25 mg Magnesium Hydroxide (Milk Of Magnesia 30 Ml Oral.Susp) 30 ml PO DAILY PRN PRN Reason: Constipation Last Admin: 11/23/22 06:04 Dose: 30 ml Magnesium Oxide (Magnesium Oxide 400 Mg Tablet) 400 mg PO DAILY [facility] Last Admin: 11/25/22 08:46 Dose: 400 mg Melatonin (Melatonin 3 Mg Tablet) 6 mg PO BEDTIME PRN PRN Reason: Sleep Last Admin: 11/23/22 20:54 Dose: 6 mg Methadone HCl (Methadone Hcl 20 Mg/2 Ml Oral.Conc) 28 mg PO DAILY [facility] Last Admin: 11/25/22 08:45 Dose: 28 mg Naproxen (Naproxen 250 Mg Tablet) 250 mg PO DAILY PRN PRN Reason: Pain, Mild Last Admin: 11/25/22 14:13 Dose: 250 mg Nicotine (Nicotine 14 Mg Patch.Td24) 14 mg TRANSDERMA DAILY [facility] Last Admin: 11/25/22 08:45 Dose: 14 mg Pharmacy Consult (Consult Rx Perform Med Rec) 1 each MISCELLANE ONCE PRN PRN Reason: Consult order Quetiapine Fumarate (Quetiapine Fumarate 200 Mg Tablet) 200 mg PO BEDTIME [facility] Last Admin: 11/24/22 21:11 Dose: 200 mg Senna/Docusate Sodium (Sennosides/Docusate Sodium Tablet) 2 tab PO BID [facility] Last Admin: 11/25/22 10:51 Dose: 2 tab Trazodone HCl (Trazodone Hcl 50 Mg Tablet) 50 mg PO BEDTIME PRN PRN Reason: Insomnia Allergies Allergies Allergy/AdvReac Type Severity Reaction Status Date / Time No Known Allergies Allergy Unverified 02/16/20 15:59 [No Known Allergies*] Assessment & Plan Assessment & Plan (1) Bipolar 1 disorder, depressed: Status: Acute Code(s): F31.9 - Bipolar disorder, unspecified (2) Opioid use disorder, severe, on maintenance therapy: Status: Acute Code(s): F11.20 - Opioid dependence, uncomplicated Plan Mr. Pascal is a 72 year-old male with hx of opioid use disorder, Bipolar disorder who was was unresponsive in public transportation. In the ED, low respiration rate, pin point pupils, unresponsive but responded quickly to narcan 4mg. Utox positive for opioids and fentanyl. Pt reported he had intentional OD on heroin as suicide attempt. On the unit, pt continues to report depressed mood increase suicidal ideation for the past 10 days, no clear trigger, reports chronic pain (arthritis and chronic headaches). However, he reports he had 14 bags of heroin and took bus to return home from [place] to [place]. PLAN 11/20 switch depakote to night time. Left message with call back number to Dr. Torre (pt's long standing psychiatrist- consider adding antidepressant). continue other medications. 11/21 will start cymbalta 20mg po daily for depression. note that he is also on amitrityline- may want to do one or the other not both depending on how pt responds 11/22: c/o insomnia. check VPA level tonight and increase if indicated. c/o depression. 11/23: VPA level 46. increase dosing from 1250 QHS to 1500 QHS as of tonight. otherwise continue current mgmt. 11/24 increase cymbalta to 40mg po daily. will dc amitriptyline but if cymbalta not effective at therapeutic doses can switch back to amitriptyline. 11/25 continue tx. Pt had BM yesterday. Reason for continued inpatient stay Substantial Risk for: inability to function Time Spent With Patient Time: Total time managing care of this patient today ____ minutes.
[2022-11-25] MEDS: Divalproex Sodium ER 500 MG TAB.ER.24H 1500 MG PO (21:26)
[2022-11-25] MEDS: Gabapentin 400 MG CAPSULE 1200 MG PO (21:27)
[2022-11-25] MEDS: Melatonin 3 MG TABLET 6 MG PO (21:29)
[2022-11-25] MEDS: QUEtiapine Fumarate 200 MG TABLET PO (21:30)
[2022-11-26] MEDS: Famotidine 20 MG TABLET PO (06:20)
[2022-11-26 07:30] VITALS: BP 137/73; PULSE 64; RESP 16; TEMP 35.7; O2SAT 97
--- NOTE | 2022-11-26 08:44 | PM.PSYDC ---
DS: Providers Provider Date of Service: 11/26/22 Date of admission: 11/19/22 14:06 Primary care physician: Unknown Physician DS: Diagnosis Discharge Diagnosis (1) Bipolar 1 disorder, depressed: Status: Acute (2) Opioid use disorder, severe, on maintenance therapy: Status: Acute DS: Medications Discharge Medications Home Medications: Home Medications Medication Instructions Recorded Confirmed alendronate 70 mg tablet 70 mg PO MO@0900 11/18/22 11/18/22 famotidine 20 mg tablet 20 mg PO DAILY@0630 11/18/22 11/18/22 quetiapine 200 mg tablet 200 mg PO BEDTIME 11/18/22 11/18/22 methadone 10 mg/mL oral 28 mg PO DAILY 11/19/22 11/19/22 concentrate (Methadose) Previous Rx's Medication Instructions Recorded acetaminophen 500 mg tablet 1,000 mg PO TID PRN Pain, Mild 30 01/22/22 days #60 tabs calcium carbonate 500 mg-vitamin 1 tab PO BID 30 days #60 tabs 01/22/22 D3 3.125 mcg (125 unit) tablet cyclobenzaprine 5 mg tablet 5 mg PO BID PRN Muscle Spasm 30 01/22/22 days #60 tabs diclofenac sodium 1 % topical gel 2 g topical QID PRN osteoarthritis 01/22/22 30 days #1 g magnesium oxide 420 mg tablet 420 mg PO DAILY 30 days #30 tabs 01/22/22 melatonin 5 mg tablet 5 mg PO BEDTIME PRN Sleep 30 days 01/22/22 #30 tabs meloxicam 7.5 mg tablet 7.5 mg PO DAILY PRN Pain, Mild 30 01/22/22 days #30 tabs divalproex 500 mg tablet,extended 1,500 mg PO BEDTIME #90 tabs 11/26/22 release 24 hr duloxetine 20 mg capsule,delayed 40 mg PO DAILY #60 caps 11/26/22 release gabapentin 300 mg capsule 900 mg PO BID@0900,1700 #90 caps 11/26/22 gabapentin 600 mg tablet 1,200 mg PO BID #60 tabs 11/26/22 nicotine 14 mg/24 hr daily 14 mg transdermal DAILY #30 ea 11/26/22 transdermal patch sennosides 8.6 mg-docusate sodium 2 tab PO BID #120 tabs 11/26/22 50 mg tablet (Senna Plus) Mental Status Exam Mental Status Exam Narrative: Appearance: wearing casual clothing, fair hygiene, in NAD Behaviors: cooperative Psychomotor: no retardation or agitation noted Speech: clear, normal rate/rhythm/volume, spontaneous TP: linear TC: no psychosis, feeling depressed Mood: Good Affect: congruent SI: denies HI: none expressed VH/AH: none expressed Delusions: none Insight/judgment: fair x 2. Memory/cog: alert, oriented x 3. grossly intact to conversational testing. Data Data Completed and Pending Completed studies during hospitalization [Text1]: 11/19/22 11/20/22 11/20/22 09:13 08:00 08:00 Sodium 141 Potassium 4.3 Chloride 105 Carbon Dioxide 28 Anion Gap 12 BUN 27 H Creatinine 0.77 Estim Creat Clear Calc 66.9 Estimated GFR > 60 Fasting Glucose 80 Estimat Average Glucose 105 Hemoglobin A1c % 5.3 Calcium 10.4 H D Magnesium 2.3 Total Bilirubin 0.4 AST 17 ALT 9 Alkaline Phosphatase 53 Total Protein 8.0 Albumin 4.2 Triglycerides 146 Cholesterol 168 LDL Cholesterol, Calc 104 HDL Cholesterol 35 Vitamin B12 Folate TSH 2.39 Urine Color Yellow Urine Appearance Clear Urine pH 6.5 Ur Specific [place] 1.025 Urine Protein Trace Urine Glucose (UA) Negative Urine Ketones Trace Urine Blood Moderate (2+) H Urine Nitrite Negative Ur Leukocyte Esterase Small (1+) H Urine RBC >20 H Urine WBC 21-50 H Ur Squamous Epith Cells 3-5 Urine Bacteria None Seen Hyaline Casts 0-2 Valproic Acid 11/20/22 11/22/22 08:00 20:29 Sodium Potassium Chloride Carbon Dioxide Anion Gap BUN Creatinine Estim Creat Clear Calc Estimated GFR Fasting Glucose Estimat Average Glucose Hemoglobin A1c % Calcium Magnesium Total Bilirubin AST ALT Alkaline Phosphatase Total Protein Albumin Triglycerides Cholesterol LDL Cholesterol, Calc HDL Cholesterol Vitamin B12 1348 H Folate 5.3 TSH Urine Color Urine Appearance Urine pH Ur Specific [place] Urine Protein Urine Glucose (UA) Urine Ketones Urine Blood Urine Nitrite Ur Leukocyte Esterase Urine RBC Urine WBC Ur Squamous Epith Cells Urine Bacteria Hyaline Casts Valproic Acid 46.0 L 11/19/22 Unknown Urine clean catch - Urine chacon top Urine Culture - Final Imaging Diagnostic Imaging Impressions Chest X-Ray 11/18/22 15:00 IMPRESSION: Patchy airspace disease in the right lung base, suspicious for pneumonia. Head CT 11/19/22 15:51 IMPRESSION: 1. No evidence of acute intracranial hemorrhage or edematous territorial infarction. 2. Moderate underlying microangiopathy and generalized cerebral volume loss. Chronic lacunar infarct of the left caudate head. DS: Summary Hospital Course Hospital Course: HPI: Subjective Notes: Phan Warning (given and shows understanding) and Conditional Voluntary Narrative: Mr. Alcantara is a 72 year-old male with hx of opioid use disorder and bipolar disorder who was brought via EMS after he was unresponsive in a bus. In the ED, he presented with low respiration rate, pin point pupils, unresponsive. He was given 4mg of narcan with good effect. Pt woke up and reported he had intentional OD with heroin as suicide attempt. Pt is known to [facility] from previous admission back in 12/2021 with similar presentation. His utox was positive for fentanyl and opioids. On the unit, pt reports feeling more depressed for some weeks. He denies use of heroin for a long time, can't remember. Note that last admission to this unit he was positive for fentanyl and opioids with extensive hx of opioid overdose. He denies any plan or intent to harm himself now but continues to endorse depressed mood. He reports day of OD, he went to [place] (he resides in [place]). He reports he used about 14 bags of heroin and then took the bus. When asked if intent was to end his life he does report I didn't think I was going to . He reports he suffers from anxiety and reports that he was prescribed xanax outpatient. This writer producer reviewed with patient that past records show concern of abuse or misuse of benzo as he continues to work on his recovery. He denies hx of visual or auditory hallucinations. He reports when he OD, he felt and hit his head. He reports pain back of his head- will order head CT. He reports constipation. Past Psychiatric History: The patient has several psychiatric admissions, he was diagnosed with bipolar disorder in his 40s, he has at least 6 prior psychiatric admissions last admission at [facility] 2020. ? He follows treatment and the OR as an outpatient- Dr. Torre [phone] Medical Evaluation Reviewed: Yes HOSPITAL COURSE On the unit, pt was admitted on a CV and placed on 15 minutes checks for safety. On the unit, pt endorsed depressed mood, passive SI. He denied suicidal or homicidal ideation several days prior to discharge. His main concern is chronic pain on left side of head for more than 50 years. Pt also requested benzodiazepine but it was explained that given opioid use and as pt continues to work on recovery, risk of misuse or increase risk of accidental OD as he continues to use opioids like fentanyl or heroin. This writer producer called his OP psychiatrist Dr. Torre-but was not able to connect with him. Pt reported no hx of VH/AH. We discussed adding cymbalta for depression and maybe some improvement in neuropathic pain. We discontinue amitriptyline as pt reported side effects with higher doses and minimal benefit from 10mg po qhs. Pt was discharged on cymbalta 40mg po daily. There is room to increase cymbalta but this can be done outpatient. Pt denied heroin use other than that one time when he OD intentionally as suicide attempt. However, family reported that they were concern as pt has increase heroin use and they worried about accidental OD. Pt declined additional referrals for substance use programming at residential facility. On the unit, pt was visible on the unit. Pt was social with select peers. There were no incidences of disruptive behaviors nor need for restraints. Pt given narcan at time of discharge. Status at Discharge Cognitive/behavioral status at discharge: Pt with brighter, non labile affect. No SI/HI. No psychosis. Future oriented. Limited insight into extend of substance use. Chronic risk of self harm due to accidental OD. Given narcan at time of discharge. No signs of aggression towards self or others. Functional status at discharge: independent ambulation Overall status at discharge: patient is progressing back to baseline Time Spent with Patient Time attestation: Total time managing care of this patient today __30__ minutes. Time spent: Greater than 30 minutes Discharge Plan Discharge Anticipated Discharge Date/Time: 11/26/22 08:36 Patient Disposition: Home, Self-Care Discharge Diagnosis: Bipolar Disorder Opioid Use Disorder Referrals: Dr Torre [facility] [Other] - 12/01/22 2:30 pm (Your next appointment with your psychiatrist at the OR is scheduled in office for 12/01/22 at 2:30PM.) Dr Riley [facility] [Other] - 12/15/22 11:00 am (Your next appointment with your clinician at the OR is scheduled for 12/15/22 at 11am. ) Dr Kay [facility] [Other] - 12/01/22 11:30 am (Your next appointment with Dr Kay at the OR is 12/01/22 at 11:30am. ) [facility] [Other] - 11/26/22 (Your nurse will do home visit on 11/26/22 when you arrive home and your RN visits and 10 hours of homecare to resume. The order from you OR PCP has been provided to [facility] and is up to date and valid until September 2023. Please be available on 11/26/22 in afternoon for visit. ) Discharge Medications: New nicotine 14 mg/24 hr Patch 24 Hour 14 mg transdermal DAILY Qty: 30 0RF divalproex 500 mg Tablet Extended Release 24 Hr 1,500 mg PO BEDTIME Qty: 90 0RF gabapentin 300 mg Capsule 900 mg PO BID@0900,1700 Qty: 90 0RF gabapentin 600 mg tablet 1,200 mg PO BID Qty: 60 0RF sennosides-docusate sodium [Senna Plus] 8.6-50 mg Tablet 2 tab PO BID Qty: 120 0RF duloxetine 20 mg Capsule,Delayed Release(Dr/Ec) 40 mg PO DAILY Qty: 60 0RF Continued magnesium oxide 420 mg Tablet 420 mg PO DAILY 30 Days Qty: 30 0RF acetaminophen 500 mg Tablet 1,000 mg PO TID PRN (Reason: Pain, Mild) 30 Days Qty: 60 0RF meloxicam 7.5 mg Tablet 7.5 mg PO DAILY PRN (Reason: Pain, Mild) 30 Days Qty: 30 0RF Rx Instructions: take with food cyclobenzaprine 5 mg Tablet 5 mg PO BID PRN (Reason: Muscle Spasm) 30 Days Qty: 60 0RF calcium carbonate-vitamin D3 500 mg-3.125 mcg (125 unit) Tablet 1 tab PO BID 30 Days Qty: 60 0RF diclofenac sodium 1 % Gel 2 g TOPICAL QID PRN (Reason: osteoarthritis) 30 Days Qty: 1 0RF Rx Instructions: apply to single elbow, wrist or hand; for hand includes palm/fingers/back of hand melatonin 5 mg Tablet 5 mg PO BEDTIME PRN (Reason: Sleep) 30 Days Qty: 30 0RF quetiapine 200 mg Tablet 200 mg PO BEDTIME famotidine 20 mg tablet 20 mg PO DAILY@0630 alendronate 70 mg tablet 70 mg PO MO@0900 methadone [Methadose] 10 mg/mL concentrate 28 mg PO DAILY Rx Instructions: Partial Fill upon patient request. Discontinued divalproex 250 mg Tablet Extended Release 24 Hr 1,250 mg PO DAILY 30 Days Qty: 150 0RF gabapentin 300 mg Capsule 900 mg PO BID@0900,1700 30 Days Qty: 180 0RF gabapentin 300 mg Capsule 1,200 mg PO BEDTIME 30 Days Qty: 120 0RF sennosides-docusate sodium [Senna with Docusate Sodium] 8.6-50 mg Tablet 2 tab-cap PO BEDTIME PRN (Reason: Constipation) amitriptyline 10 mg tablet 10 mg PO BEDTIME Discharge Orders: Discharge Order (Routine); Ordered 11/26/22 Ordered By: Dulce Ivy Diet: Regular diet Activity on Discharge: As tolerated Stand Alone Forms: Patient Portal Discharge page Care Plan Goals: 1. Maintain mood 2. No SI/HI 3. Harm reduction- given narcan at time of discharge Health Concerns: Follow up with PCP Follow up with neurology for chronic headaches Plan of Treatment: 1. Take medications as prescribed 2. Go to nearest ED or call 911 in event of emergency Assessment: Pt with brighter, non labile mood. No SI/HI. Future oriented. No signs of psychosis or delusions. Pt sleeping and eating well.
[2022-11-26] MEDS: Magnesium Oxide 400 MG TABLET PO (09:05)
[2022-11-26] MEDS: Gabapentin 300 MG CAPSULE 900 MG PO (09:05)
[2022-11-26] MEDS: Nicotine 14 MG PATCH.TD24 TRANSDERMA (09:05)
[2022-11-26] MEDS: DULoxetine HCl 20 MG CAPSULE.DR 40 MG PO (09:06)
[2022-11-26] MEDS: methADONE HCl 20 MG/2 ML ORAL.CONC 28 MG PO (09:06)
[2022-11-26] MEDS: Calcium + Vitamin D 250 MG TABLET PO (09:06)
[2022-11-26] MEDS: Sennosides/Docusate Sodium TABLET 2 TAB PO (09:06)
[2022-11-26] MEDS: Naloxone HCl Nasal TAKE HOME 4 MG SPRAY 8 MG NOSTRILALT (11:05)
[2022-11-26] MEDS: NaPROXEN 250 MG TABLET PO (11:28)
--- NOTE | 2022-11-26 12:39 | PC.NURSE ---
Patient alert and oriented. Expresses readiness for discharge. D/C information/follow ups reviewed with patient. Belongings accounted for. Patient denies SI/HI. [ End ]Patient alert and oriented. Expresses readiness for discharge. D/C information/follow ups reviewed with patient. Belongings accounted for. Patient denies SI/HI. [ End ]
== END 2022-11-26 12:40 | disposition home or self-care (01) | DRG 885 ==
LOC: HO.ED 11-19 14:15 → HO.PGERI 11-19 14:20
PROVIDERS: Emergency Medicine; Psychiatry & Neurology Psychiatry; Social Worker; Admitting Provider Psychiatry & Neurology Psychiatry; Emergency Provider Emergency Medicine Emergency Medical Services; Visit Provider Psychiatry & Neurology Psychiatry
DX: F31.30 Bipolar disorder, current episode depressed, mild or moderate severity, unspecified (principal); F11.20 Opioid dependence, uncomplicated; T40.1X2A Poisoning by heroin, intentional self-harm, initial encounter; G89.29 Other chronic pain; F17.210 Nicotine dependence, cigarettes, uncomplicated; Z71.6 Tobacco abuse counseling; Z20.822 Contact with and (suspected) exposure to COVID-19; Z79.899 Other long term (current) drug therapy
CPT/HCPCS: 36415; 70450; 71045; 80053; 80061; 80164; 80307; 81001; 82607; 82746; 82947; 83036; 83690; 83735; 84443; 85025; 85610; 87086; 87635; 93005; 99285; S9485

== ENCOUNTER 2024-02-26 15:03 | Inpatient (IN) | payer OTHER, SELFPAY ==
[2024-02-26] VITALS (9 sets, daily range): BP systolic 76–176; BP diastolic 47–111; PULSE 64–106; RESP 13–25; TEMP 36.8–37.9; O2SAT 84–99; BMI 24.5; BMI 23.6
--- NOTE | ~2024-02-26 | CT_ITS ---
EXAMINATION: CT HEAD WITHOUT IV CONTRAST CT CERVICAL SPINE WITHOUT IV CONTRAST INDICATION: Fall COMPARISON: CT head on 11/19/[address] cervical spine on 01/10/2022 TECHNIQUE: Multidetector CT acquisitions of the head and cervical spine were obtained without IV contrast. Multiplanar reformats were acquired and utilized for image interpretation. This CT examination was performed using dose optimization techniques as appropriate, variously including the following: *Automated exposure control *Adjustment of mA and/or kV according to patient size (this includes techniques or standardized protocols for targeted exams where dose is matched to indication/reason for exam; i.e. extremities or head) *Use of iterative reconstruction technique FINDINGS: Motion artifact is present. HEAD: No acute intracranial hemorrhage or infarct. The chacon-white matter differentiation is preserved. Patchy hypodensity involving the periventricular deep white matter compatible with small vessel ischemic disease. Diffuse widening of the sulci with associated ex vacuo dilation of the ventricles compatible with global cerebral atrophy. No midline shift or hydrocephalus. No acute extra-axial fluid collections. The osseous structures are unremarkable. Sequelae of bilateral lens replacement. Otherwise, no acute orbital pathology. The paranasal sinuses and mastoid air cells are clear. Atherosclerotic calcifications of the bilateral carotid siphons. CERVICAL SPINE: There is anatomic alignment of the vertebral bodies and posterior elements. There is no acute fracture and there is no acute subluxation. The craniocervical and atlantoaxial articulations are normal. Multilevel degenerative changes including endplate osteophytosis, uncovertebral hypertrophy, and facet arthrosis. There is no prevertebral soft tissue swelling. No significant soft tissue abnormality within the neck. The visualized lung apices are clear. CT/CT cervical spine wo IV con IMPRESSION: 1. No acute intracranial abnormality. 2. No acute osseous abnormality within the cervical spine. Electronically signed by: Lizbet Levin MD 02/26/2024 08:19 PM EDT
--- NOTE | ~2024-02-26 | XR_ITS ---
EXAMINATION: XR CHEST CLINICAL INFORMATION: Sepsis COMPARISON: Chest x-ray on 11/18/2022 TECHNIQUE: Frontal view of the chest was obtained. FINDINGS: The cardiac silhouette is normal. There is mild diffuse chronic interstitial disease. There are no areas of consolidation. There are no pleural effusions or pneumothoraces. The bones and soft tissues are unremarkable for the patient's age. XR/XR chest 1V IMPRESSION: Mild diffuse chronic interstitial disease. Electronically signed by: Meghan Zurita MD 02/26/2024 09:01 PM EDT RP
--- NOTE | ~2024-02-26 | XR_ITS ---
EXAMINATION: XR ELBOW, RIGHT CLINICAL INFORMATION: Trauma pain COMPARISON: None available. TECHNIQUE: AP, lateral, and oblique views of the right elbow. FINDINGS: Question soft tissue prominence/swelling posterior to the distal humerus. No joint effusion. No fracture. XR/XR elbow RT min 3V IMPRESSION: Question soft tissue prominence/swelling posterior to the distal humerus. This could reflect soft tissue contusion or hematoma. No fracture detected Electronically signed by: Lawrence Benoit MD 02/26/2024 08:54 PM EDT
--- NOTE | 2024-02-26 15:47 | ECG_ITS ---
Test Reason : WEAKNESS Blood Pressure : / mmHG Vent. Rate : 098 BPM Atrial Rate : 098 BPM P-R Int : 140 ms QRS Dur : 074 ms QT Int : 366 ms P-R-T Axes : 066 024 064 degrees QTc Int : 467 ms Sinus rhythm with Premature atrial complexes Otherwise normal ECG When compared with ECG of 18-NOV-2022 13:41, Premature atrial complexes are now Present QT has shortened Referred By: Gerson Crawford Electronically Signed By:ANDRE CURTIS
[2024-02-26 15:58] LABS: MANUAL DIFF FLAG NO
[2024-02-26 16:08] LABS: Basophils Absolute Auto 0.1 X10*3/uL (0.0-0.2); Basophils Percent Auto 0.6 % (0-2); Eosinophils Absolute Auto 0.1 X10*3/uL (0.0-0.4); Eosinophils Percent Auto 0.7 % (0-4); Hematocrit 32.3 % (42.0-52.0); Hemoglobin 10.5 g/dl (14.0-18.0); Imm Gran Abs Auto 0.04 X10*3/uL (0.00-0.03); Imm Gran Pct Auto 0.5 % (0.0-0.4); Lymphocytes Absolute Auto 3.4 X10*3/uL (1.2-4.9); Lymphocytes Percent Auto 40.4 % (20-40); Mean Corpuscular HGB Conc 32.5 g/dl (31.0-36.0); Mean Corpuscular Hemoglobin 29.3 pg (27.0-33.0); Mean Corpuscular Volume 90.2 fL (80.0-98.0); Mean Platelet Volume 9.7 fL (9.4-12.4); Monocytes Absolute Auto 0.7 X10*3/uL (0.1-1.2); Monocytes Percent Auto 8.6 % (2-11); Neutrophils Absolute Auto 4.2 x10*3/uL (2.0-8.3); Neutrophils Percent Auto 49.2 % (45-73); Platelet Count 285 X10*3/uL (160-400); Red Blood Count 3.58 X10*6/uL (4.60-5.80); Red Cell Distribution Width 15.3 % (11.0-16.0); White Blood Count 8.5 X10*3/uL (4.8-10.8)
--- NOTE | 2024-02-26 16:20 | ED.GENADULT ---
HPI - General Adult General Chief complaint: Fall Stated complaint: wit fall, collared, response to pain, back pain Time Seen by Provider: 02/26/24 15:36 Source: patient, RN notes reviewed, old records reviewed and animal herder Mode of arrival: EMS Limitations: language barrier and altered mental status History of Present Illness ED Provider: Ty HPI narrative: 73-year-old male past medical history significant for opiate use disorder, bipolar disorder presents for evaluation after a witnessed fall. Apparently the patient had a fall on the sidewalk that was witnessed by a bystander who called the EMS. The patient denies any pain whatsoever. He was apparently 84% on room air for EMS. The patient is actively coughing intermittently. He denies any shortness of breath, headache, neck pain, chest pain. He admits to using heroin earlier today, he states that he sniffs and does not inject Related Data Home Medications ?Medication ?Instructions ?Recorded ?Confirmed alendronate 70 mg tablet 70 mg PO MO@0900 11/18/22 11/18/22 famotidine 20 mg tablet 20 mg PO DAILY@0630 11/18/22 11/18/22 quetiapine 200 mg tablet 200 mg PO BEDTIME 11/18/22 11/18/22 methadone 10 mg/mL oral 28 mg PO DAILY 11/19/22 11/19/22 concentrate (Methadose) Previous Rx's ?Medication ?Instructions ?Recorded acetaminophen 500 mg tablet 1,000 mg (2 x 500 mg) PO TID PRN 01/22/22 Pain, Mild 30 days #60 tabs calcium carbonate 500 mg-vitamin 1 tab PO BID 30 days #60 tabs 01/22/22 D3 3.125 mcg (125 unit) tablet cyclobenzaprine 5 mg tablet 5 mg PO BID PRN Muscle Spasm 30 01/22/22 days #60 tabs diclofenac sodium 1 % topical gel 2 g topical QID PRN osteoarthritis 01/22/22 30 days #1 g magnesium oxide 420 mg tablet 420 mg PO DAILY 30 days #30 tabs 01/22/22 melatonin 5 mg tablet 5 mg PO BEDTIME PRN Sleep 30 days 01/22/22 #30 tabs meloxicam 7.5 mg tablet 7.5 mg PO DAILY PRN Pain, Mild 30 01/22/22 days #30 tabs divalproex 500 mg tablet,extended 1,500 mg (3 x 500 mg) PO BEDTIME 11/26/22 release 24 hr #90 tabs duloxetine 20 mg capsule,delayed 40 mg (2 x 20 mg) PO DAILY #60 caps 11/26/22 release gabapentin 300 mg capsule 900 mg (3 x 300 mg) PO 11/26/22 BID@0900,1700 #90 caps gabapentin 600 mg tablet 1,200 mg (2 x 600 mg) PO BID #60 11/26/22 tabs nicotine 14 mg/24 hr daily 14 mg transdermal DAILY #30 ea 11/26/22 transdermal patch sennosides 8.6 mg-docusate sodium 2 tab PO BID #120 tabs 11/26/22 50 mg tablet (Senna Plus) Allergies Allergy/AdvReac Type Severity Reaction Status Date / Time No Known Allergies Allergy Verified 02/26/24 15:34 [No Known Allergies*] Review of Systems Constitutional: Constitutional: Denies chills, Reports fever(s), Denies frequent falls and Denies headache(s) Eyes: Eyes: Denies blurry vision ENT: Denies vertigo, Denies dizziness and Denies headache(s) Cardiovascular: Cardiovascular: Denies chest pain Respiratory: Respiratory: Reports cough Gastrointestinal: Gastrointestinal: Denies abdominal pain, Denies nausea and Denies vomiting Genitourinary: Genitourinary: Denies dysuria Musculoskeletal: Musculoskeletal: Denies back pain Integumentary/Breasts: Skin/Breast: Denies rash Neurologic: Denies vertigo, Denies dizziness, Denies frequent falls and Denies headache(s) Psychiatric: Psychiatric: Denies anxiety [facility] Social History Social History Household Members: Family Household Members Other:: Son Housing: House Do you presently have visiting nurse or other home services: No Unable to assess alcohol history related to: Unknown Alcohol intake: current Alcohol intake frequency: does not drink Patient Tobacco Use Status: Current everyday Tobacco user Tobacco use type: Cigarette Cigarette Packs Per Day: 0.5 Cigarettes Per Day: 9 Years Smoked: 50 Smoked in Last 30 Days: No e-Cigarette/Vaping Use: Never Used Second Hand Smoke Exposure: Yes Use of substances other than those prescribed or required for medical reasons: Yes Substance Use Type: Crack/Cocaine and Heroin Advance Directives: No Advance Directives Information Provided: No service: Yes Sexual orientation: Straight/Heterosexual Physical Exam ED Vital Signs: Vital Signs - 24 hr 02/26/24 15:32 02/26/24 16:05 02/26/24 16:42 Temperature 100.3 F 100.1 F Pulse Rate 106 H 97 87 Respiratory Rate 14 16 25 H Blood Pressure 86/47 L 94/77 76/52 L Pulse Oximetry 96 87 L 95 Oxygen Delivery Method Nasal Cannula Room Air Nasal Cannula Oxygen Flow Rate 2 02/26/24 17:49 02/26/24 17:53 02/26/24 18:00 Temperature 98.5 F 98.3 F Pulse Rate 81 79 88 Respiratory Rate 16 13 16 Blood Pressure 89/68 L 102/75 159/111 H Pulse Oximetry 99 99 97 Oxygen Delivery Method Nasal Cannula Nasal Cannula Nasal Cannula Oxygen Flow Rate 2 2 2 BMI result Body Mass Index 23.6 Const General: comfortable, no acute distress, alert and awake Nutritional Appearance: well nourished Orientation/consciousness: patient oriented x3 HENMT Head: Yes normocephalic and Yes atraumatic Eyes Eyelids: Yes eyelids normal Conjunctivae: conjunctivae normal Sclerae: sclerae normal Corneas: corneas normal Pupils: Equal, round and reactive pupils present EOM: EOMs intact bilaterally Neck Neck: Yes full ROM Resp Effort & Inspection: normal respiratory effort, able to speak in complete sentences, no audible wheezes and not labored Auscultation: clear to auscultation bilaterally Cardio Rate: regular rate Rhythm: regular rhythm GI Inspection: No distended Palpation (GI): Soft to palpation, not firm, nontender, no guarding and not rigid Back/Spine/Pelvis Other: Patient is in a hard c-collar. No C-spine tenderness Skin General skin exam: elasticity normal Neuro General: patient oriented x3 Cranial nerves: Yes CN's II-XII intact bilaterally, Yes Equal, round and reactive pupils present and Yes Bilaterally intact EOM present Cognition (Neuro): normal cognition Extrem Other: Moving all extremities well without any obvious deformities Course Reevaluation(s) Reevaluation #1: Sepsis focused exam performed. Patient's BP is improving with IV fluids Time: 19:55 Medications Administered Discontinued Medications Generic Name Dose Route Start Last Admin Trade Name Freq PRN Reason Stop Dose Admin Acetaminophen 975 mg 02/26/24 15:48 02/26/24 16:38 Acetaminophen 325 Mg Tablet PO 02/26/24 15:49 975 mg ONCE ONE Administration Sodium Chloride 1,941 mls @ 1,941 mls/hr 02/26/24 15:45 02/26/24 17:36 Ns 30 ml/kg infuse over 1 hr (1941 ml) 02/26/24 16:44 Infused IV Infusion .Q1H STA Vancomycin HCl 1,000 mg/ 270 mls @ 270 mls/hr 02/26/24 15:45 02/26/24 18:43 Sodium Chloride IV 02/26/24 16:44 Infused ONCE ONE Infusion Piperacillin Sod/Tazobactam 50 mls @ 100 mls/hr 02/26/24 15:45 02/26/24 17:23 Sod 3.375 gm/ Sodium Chloride IV 02/26/24 16:14 Infused ONCE ONE Infusion Medical Decision Making Medical Decision Making [facility] Narrative: Patient arrives hypoxic, hypotensive, he has a temperature of a 100.3?, a sepsis workup will be ordered. The patient does not have any track ohara to suggest bacteremia from IV drug abuse. Given he was hypotensive, I ordered vancomycin and Zosyn, normal saline at 30 cc/kilos. Differential Diagnosis Differential Diagnoses: The differential diagnosis associated with the presentation includes Sepsis Aspiration pneumonia Bacteremia Cellulitis COVID syndrome Admission/Observation Consideration of admission/observation: Escalation of care including admission/observation considered Lab Data [facility] Lab Attestation statement: I reviewed the patient's lab results. No leukocytosis. The patient has a mild anemia. Normal platelet count. No significant electrolyte abnormalities. 02/26/24 15:45 02/26/24 15:45 Labs: Lab Results 02/26/24 02/26/24 02/26/24 Range/Units 15:45 16:22 18:41 WBC 8.5 (4.8-10.8) X10*3/uL RBC 3.58 L (4.60-5.80) X10*6/uL Hgb 10.5 L (14.0-18.0) g/dl Hct 32.3 L (42.0-52.0) % MCV 90.2 (80.0-98.0) fL MCH 29.3 (27.0-33.0) pg MCHC 32.5 (31.0-36.0) g/dl RDW 15.3 (11.0-16.0) % Plt Count 285 D (160-400) X10*3/uL MPV 9.7 (9.4-12.4) fL Immature Gran % (Auto) 0.5 H (0.0-0.4) % Neut % (Auto) 49.2 (45-73) % Lymph % (Auto) 40.4 H (20-40) % [place] % (Auto) 8.6 (2-11) % Eos % (Auto) 0.7 (0-4) % Baso % (Auto) 0.6 (0-2) % Lymph # (Auto) 3.4 (1.2-4.9) X10*3/uL [place] # (Auto) 0.7 (0.1-1.2) X10*3/uL Eos # (Auto) 0.1 (0.0-0.4) X10*3/uL Baso # (Auto) 0.1 (0.0-0.2) X10*3/uL Abs Immat Gran (auto) 0.04 H (0.00-0.03) X10*3/uL Absolute Neuts (auto) 4.2 (2.0-8.3) x10*3/uL Absolute Nucleated RBC 0.000 (0.0-0.012) X10*3/uL Nucleated RBC % (auto) 0.0 (0.0-0.2) /100WBC Hold Purple Top SEE NOTE Hold Blue Top SEE NOTE Sodium 142 (135-145) mmol/L Potassium 4.7 (3.3-5.1) mmol/L Chloride 111 H (96-108) mmol/L Carbon Dioxide 23 (22-29) mmol/L Anion Gap 13 (12-20) BUN 23 H (9-16) mg/dL Creatinine 1.16 (0.5-1.4) mg/dL Estim Creat Clear Calc 47.4 Estimated GFR > 60 Random Glucose 103 (60-115) mg/dL Lactic Acid 2.8 H* (0.5-2.0) mmol/L Lactic Acid F/U @ 2Hr 1.8 (0.5-2.0) mmol/L Calcium 9.6 D (8.4-10.2) mg/dL Magnesium 2.1 (1.6-2.6) mg/dL Total Bilirubin 0.2 (0.0-1.0) mg/dL AST 17 (5-37) U/L ALT 13 (0-40) U/L Alkaline Phosphatase 56 (39-117) U/L Troponin I High Sens 4.5 (<3.5-35.0) ng/L Total Protein 7.9 (6.5-8.0) g/dL Albumin 4.1 (3.5-5.0) g/dL Lipase 12 (8-78) U/L Hold Green Top See Note Ethyl Alcohol < 10 mg/dL Influenza Type A (PCR) NEGATIVE (Negative) Influenza Type B (PCR) NEGATIVE (Negative) RSV RNA Qual (PCR) NEGATIVE (Negative) SARS-CoV-2 RNA (RT-PCR) NEGATIVE (Negative) Independent Interpretation I performed an independent interpretation of an: Plain X-Ray (Right lower lobe atelectasis versus infiltrate) Discharge Plan Discharge Clinical Impression: Sepsis Patient Disposition: Admitted As Inpatient Prescriptions: No Action magnesium oxide 420 mg Tablet 420 mg PO DAILY 30 Days Qty: 30 0RF acetaminophen 500 mg Tablet 1,000 mg PO TID PRN (Reason: Pain, Mild) 30 Days Qty: 60 0RF meloxicam 7.5 mg Tablet 7.5 mg PO DAILY PRN (Reason: Pain, Mild) 30 Days Qty: 30 0RF Rx Instructions: take with food cyclobenzaprine 5 mg Tablet 5 mg PO BID PRN (Reason: Muscle Spasm) 30 Days Qty: 60 0RF calcium carbonate-vitamin D3 500 mg-3.125 mcg (125 unit) Tablet 1 tab PO BID 30 Days Qty: 60 0RF diclofenac sodium 1 % Gel 2 g TOPICAL QID PRN (Reason: osteoarthritis) 30 Days Qty: 1 0RF Rx Instructions: apply to single elbow, wrist or hand; for hand includes palm/fingers/back of hand melatonin 5 mg Tablet 5 mg PO BEDTIME PRN (Reason: Sleep) 30 Days Qty: 30 0RF quetiapine 200 mg Tablet 200 mg PO BEDTIME famotidine 20 mg tablet 20 mg PO DAILY@0630 alendronate 70 mg tablet 70 mg PO MO@0900 methadone [Methadose] 10 mg/mL concentrate 28 mg PO DAILY Rx Instructions: Partial Fill upon patient request. nicotine 14 mg/24 hr Patch 24 Hour 14 mg transdermal DAILY Qty: 30 0RF divalproex 500 mg Tablet Extended Release 24 Hr 1,500 mg PO BEDTIME Qty: 90 0RF gabapentin 300 mg Capsule 900 mg PO BID@0900,1700 Qty: 90 0RF gabapentin 600 mg tablet 1,200 mg PO BID Qty: 60 0RF sennosides-docusate sodium [Senna Plus] 8.6-50 mg Tablet 2 tab PO BID Qty: 120 0RF duloxetine 20 mg Capsule,Delayed Release(Dr/Ec) 40 mg PO DAILY Qty: 60 0RF Print Language: Urdu
[2024-02-26 16:28] LABS: Alanine Aminotransferase 13 U/L (0-40); Albumin Level 4.1 g/dL (3.5-5.0); Alkaline Phosphatase 56 U/L (39-117); Anion Gap 13 (12-20); Aspartate Amino Transferase 17 U/L (5-37); Bilirubin Total 0.2 mg/dL (0.0-1.0); Blood Urea Nitrogen 23 mg/dL (9-16); Calcium 9.6 mg/dL (8.4-10.2); Carbon Dioxide 23 mmol/L (22-29); Chloride 111 mmol/L (96-108); Creatinine Clr Calc Pharmacy 47.4; Estimated Glomerular Filt Rate > 60; Ethanol < 10 mg/dL; Glucose Random 103 mg/dL (60-115); Lipase 12 U/L (8-78); Magnesium 2.1 mg/dL (1.6-2.6); Potassium 4.7 mmol/L (3.3-5.1); Sodium 142 mmol/L (135-145); Total Protein 7.9 g/dL (6.5-8.0); Troponin-I High Sensitivity 4.5 ng/L (<3.5-35.0)
[2024-02-26] MEDS: Piperacillin Sodium/Tazobactam 3.375 GM in 0.9 % Sodium Chloride 50 ML IV (16:37)
[2024-02-26] MEDS: Acetaminophen 325 MG TABLET 975 MG PO (16:38)
[2024-02-26] MEDS: vancomycin HCL 1,000 MG in 0.9 % Sodium Chloride 250 ML 270 MG IV (16:48)
--- NOTE | 2024-02-26 16:48 | PC.NURSE ---
pt arrived in a c-collar and was placed in 22H - cupola charger notified this Rn that pt was hypoxic, hypotensive and febrile from the pierson - pt had a difficult time following directions and was difficult to remove from his clothing to obtain blood work and an IV, sepsis alert called and it was attempted to move pt to room 5 for a rectal temp and complete sepsis work up.
[2024-02-26 17:08] LABS: Influenza A PCR NEGATIVE (Negative); Influenza B PCR NEGATIVE (Negative); Resp Syncy Virus RNA Qual PCR NEGATIVE (Negative); SARS COV2 PCR INHOUSE NEGATIVE (Negative)
[2024-02-26 17:55] LABS: Reflex Lactate? Lactic Acid Added
--- NOTE | 2024-02-26 19:05 | PC.NURSE ---
pts belongings in decon - cell phone and cane at bedside
[2024-02-26 19:10] LABS: ~Lactic Acid-LAB USE ONLY 1.8 mmol/L (0.5-2.0)
[2024-02-26 19:23] LABS: Lactic Acid 2.8 mmol/L (0.5-2.0)
--- NOTE | 2024-02-26 20:46 | PM.IMHP ---
History of Present Illness Date of Service: 02/26/24 Attending physician on admission: Yelena Vásquez Chief Complaint: Fall on sidewalk Pt is a 73-year-old male with a PMH significant for?opiate use disorder on methadone GERD and by bipolar disorder who presents to the ED after witnessed fall?while outside walking on the sidewalk. Patient admits to snorting heroin earlier in the day and only has hazy recollection of events. Reports was outside walking when he felt lightheaded and dizzy and then slumped to the ground. Bystanders who witnessed event called EMS who found patient to be hypoxic at 84%. Unclear if EMS administered Narcan. Patient has had similar presentations to the ED in the past, including being found unresponsive on a bus and also previously on the sidewalk. Patient himself complains of chronic left-sided facial pain and right thigh pain that has been ongoing for 50+ years since patient was in the . Currently patient has no acute medical complaints and says he feels ?fine?. He is noted to be intermittently coughing during interview and exam, though no shortness a breath or difficulty breathing. No chest pain/pressure, palpitations. Denies fever, chills, nausea, vomiting, abdominal pain. No diarrhea. He is an active smoker. In the ED pt was tachycardic up to 106, tachypneic up to 25, hypotensive as low as 76/52, with low-grade fever of 100.3, and hypoxic as low as 87% on RA. Labs were significant for creatinine 1.16 (elevated from 0.77 on 11/20/2022) and lactic acid 2.8 with repeat 1.8, otherwise grossly unremarkable and around baseline for patient. No leukocytosis. Stable normocytic anemia left 10.5/32.3. No significant electrolyte abnormalities. Troponin WNL at 4.5. Ethyl alcohol undetectable. UA negative for UTI. CXR showed mild diffuse chronic interstitial disease. CT?of head showed no acute intracranial abnormality. CT of cervical spine showed no acute osseous abnormality. EKG demonstrated sinus rhythm with PACs but no evidence of significant ST elevations or depressions. Pt was treated with acetaminophen, IVF, vancomycin, and Zosyn. Pt will be admitted to the hospital for treatment and further evaluation of acute hypoxic respiratory failure likely secondary to aspiration pneumonia in the setting heroin use. Review of Systems Review of Systems: Chronic left-sided facial pain Chronic right upper thigh pain Patient otherwise has no acute medical complaints at this time No fever, chills, nausea, vomiting Denies shortness a breath or difficulty breathing No chest pain/pressure, palpitations Denies abdominal pain PMFSH Social History Household Members: Family Household Members Other:: Son Housing: House Do you presently have visiting nurse or other home services: No Unable to assess alcohol history related to: Unknown Alcohol intake: current Alcohol intake frequency: does not drink Patient Tobacco Use Status: Current everyday Tobacco user Tobacco use type: Cigarette Cigarette Packs Per Day: 0.5 Cigarettes Per Day: 9 Years Smoked: 50 Smoked in Last 30 Days: No e-Cigarette/Vaping Use: Never Used Second Hand Smoke Exposure: Yes Use of substances other than those prescribed or required for medical reasons: Yes Substance Use Type: Crack/Cocaine and Heroin Advance Directives: No Advance Directives Information Provided: No service: Yes Sexual orientation: Straight/Heterosexual Meds Allergies Allergy/AdvReac Type Severity Reaction Status Date / Time No Known Allergies Allergy Verified 02/26/24 15:34 [No Known Allergies*] Home Medications ?Medication ?Instructions ?Recorded ?Confirmed ?Last Taken ?Type alendronate 70 mg tablet 70 mg PO MO@0900 11/18/22 02/26/24 02/22/24 History famotidine 20 mg tablet 20 mg PO DAILY@0630 11/18/22 02/26/24 02/25/24 History amitriptyline 10 mg tablet 20 mg PO BEDTIME 02/26/24 02/26/24 02/25/24 History buprenorphine 300 mg/1.5 mL 300 mg subcut ONCE 02/26/24 02/26/24 Unknown History solution,exten.rel.subcutaneous syringe (Sublocade) buprenorphine 8 mg-naloxone 2 mg 1 film sublingual TID 02/26/24 02/26/24 Unknown History sublingual film cholecalciferol (vitamin D3) 50 50 mcg PO DAILY 02/26/24 02/26/24 02/25/24 History mcg (2,000 unit) tablet (Vitamin D3) cyanocobalamin (vitamin B-12) 1,000 mcg PO DAILY 02/26/24 02/26/24 02/25/24 History 1,000 mcg tablet divalproex 250 mg tablet,extended 1,250 mg PO BEDTIME 02/26/24 02/26/24 02/25/24 History release 24 hr gabapentin 300 mg capsule 1,200 mg PO BEDTIME 02/26/24 02/26/24 02/25/24 History gabapentin 300 mg capsule 900 mg PO BID@0800,1200 02/26/24 02/26/24 02/26/24 History meloxicam 15 mg tablet 7.5 mg PO DAILY 02/26/24 02/26/24 02/25/24 History memantine 5 mg tablet 5 mg PO DAILY 02/26/24 02/26/24 02/25/24 History jpthkijgpybt-mbsmmsxc-icvron 1 tab PO DAILY 02/26/24 02/26/24 02/25/24 History tablet (Multivitamin 50 Plus tablet) quetiapine 50 mg tablet (Seroquel) 150 mg PO BEDTIME 02/26/24 02/26/24 02/25/24 History sennosides 8.6 mg-docusate sodium 2 tab PO BEDTIME PRN Constipation 02/26/24 02/26/24 Unknown History 50 mg tablet (Senna Plus) vitamin E (dl, acetate) 45 mg (100 45 mg PO DAILY 02/26/24 02/26/24 02/25/24 History unit) capsule Physical Exam Vital Signs and Narrative: Vital Signs: Last Vital Signs Temp 98.3 F 02/26/24 18:00 Pulse 88 02/26/24 18:00 Resp 16 02/26/24 18:00 BP 159/111 H 02/26/24 18:00 Pulse Ox 97 02/26/24 18:00 O2 Del Method Nasal Cannula 02/26/24 18:00 O2 Flow Rate 2 02/26/24 18:00 Oxygen Flow Rate 4 02/26/24 15:32 BMI result Body Mass Index 23.6 General: AOx3, no acute distress Resp: Diffuse coarse breath sounds bilaterally CVS: S1, S2, regularly irregular rhythm GI: +BS, NT, no distention Skin: Warm, dry Neuro: Cranial nerves II-XII grossly intact bilaterally. Motor grossly intact bilaterally Extremities: No edema Psych: Appropriate affect Results Labs 02/26/24 15:45 02/26/24 15:45 Labs: Laboratory Results - last 24 hr 02/26/24 02/26/24 02/26/24 15:45 16:22 18:41 MCV 90.2 MCH 29.3 MCHC 32.5 RDW 15.3 Plt Count 285 D MPV 9.7 Immature Gran % (Auto) 0.5 H Neut % (Auto) 49.2 Lymph % (Auto) 40.4 H [place] % (Auto) 8.6 Eos % (Auto) 0.7 Baso % (Auto) 0.6 Lymph # (Auto) 3.4 [place] # (Auto) 0.7 Eos # (Auto) 0.1 Baso # (Auto) 0.1 Abs Immat Gran (auto) 0.04 H Absolute Neuts (auto) 4.2 Absolute Nucleated RBC 0.000 Nucleated RBC % (auto) 0.0 Hold Purple Top SEE NOTE Hold Blue Top SEE NOTE Anion Gap 13 Estim Creat Clear Calc 47.4 Estimated GFR > 60 Random Glucose 103 Lactic Acid 2.8 H* Lactic Acid F/U @ 2Hr 1.8 Calcium 9.6 D Magnesium 2.1 Total Bilirubin 0.2 AST 17 ALT 13 Alkaline Phosphatase 56 Troponin I High Sens 4.5 Total Protein 7.9 Albumin 4.1 Lipase 12 Hold Green Top See Note Ethyl Alcohol < 10 Influenza Type A (PCR) NEGATIVE Influenza Type B (PCR) NEGATIVE RSV RNA Qual (PCR) NEGATIVE SARS-CoV-2 RNA (RT-PCR) NEGATIVE Imaging Radiologist's Impressions: Impressions Head CT 02/26/24 15:45 IMPRESSION: 1. No acute intracranial abnormality. 2. No acute osseous abnormality within the cervical spine. Electronically signed by: Lizbet Levin MD 02/26/2024 08:19 PM EDT RP Cervical Spine CT 02/26/24 18:28 IMPRESSION: 1. No acute intracranial abnormality. 2. No acute osseous abnormality within the cervical spine. Electronically signed by: Lizbet Levin MD 02/26/2024 08:19 PM EDT RP Assessment and Plan (1) Acute hypoxic respiratory failure: Status: Acute Plan Pt is a 73-year-old male with a PMH significant for?opiate use disorder on methadone, GERD, and by bipolar disorder who presents to the ED after witnessed fall?while outside walking on the sidewalk. Pt will be admitted to the hospital for treatment and further evaluation of acute hypoxic respiratory failure likely secondary to aspiration pneumonitis vs pneumonia with sepsis in the setting heroin use. Acute hypoxic respiratory failure with sepsis In the setting of heroin use with likely overdose Patient with witnessed fall on the sidewalk after heroin use, desatting into the mid 80s on RA Likely secondary to aspiration pneumonitis vs pneumonia Meets SIRS criteria: Likely aspiration, tachycardia, tachypnea; patient hypotensive and with elevated lactic acid of 2.8 Patient given IVF sepsis bolus and started on broad-spectrum antibiotics in the ED Will treat with Unasyn, started 02/26/2024 Titrate supplemental O2 >92, wean as tolerated Follow cultures Opiate use disorder Continue methadone Addiction medicine consult GERD Continue famotidine Mood disorder Continue home mood stabilizers Nicotine dependence Nicotine replacement therapy Full Code Attending:?Dr. Vásquez DVT Prophylaxis: Lovenox Pt will require a hospitalization of at least two nights for treatment of acute hypoxic respiratory failure in the setting of likely aspiration pneumonitis vs pneumonia?with sepsis in the setting of opiate overdose. He will require inpatient level care for administration of IV antibiotics, supplemental oxygen, and close monitoring of vitals. Quality Stroke Does the patient have a stroke diagnosis?: No VTE Prior VTE?: No VTE Risk Level:: Medical - moderate - high VTE Device Contraindication: Treatment Not Indicated VTE Drug Contraindication: N/A - Med Ordered
--- NOTE | 2024-02-26 21:28 | PC.NURSE ---
pt is axox3 ambulates with steady gait. was given food not notified to this RN, upon entering room pt eating tolerating po intake and speaking full clear sentences. MD aware. NPO order cancelled. BP as documented pt denies cp/sob/n/v/d/HINES/blurry vision. MD aware no new orders. pt resting comfortably in stretcher call haney within reach.
[2024-02-26 21:45] LABS: Appearance Urine Clear; Color Urine Yellow; Glucose Urine UA Negative (Negative); Leukocyte Esterase Urine Negative (Negative); Nitrite Urine Negative (Negative); PH 6.5 (5.0-9.0); Specific Gravity - Urine 1.015 (1.005-1.025); UMIC TRIGGER UACC YES; Urine Blood Moderate (2+) (Negative); Urine Ketones Negative (Negative); Urine Protein Trace mg/dL (Neg-Trace)
[2024-02-26 21:57] LABS: Bacteria Urine None Seen (None Seen); Hyaline Casts Urine 0-2 /LPF (0-2); RBC Urine 0-2 /HPF (0-2); Squamous Epithelial Cell Urine 0-2 /HPF (0-2); WBC Urine 0-5 /HPF (0-5)
[2024-02-26] MEDS: Ampicillin Sodium/Sulbactam Na 3 GM in 0.9 % Sodium Chloride 100 ML IV (22:10)
[2024-02-26] MEDS: Enoxaparin Sodium 40 MG/0.4 ML SYRINGE SUBCUT (22:10)
--- NOTE | 2024-02-26 22:22 | PHA.MEDREC ---
Pharmacy Consult ? Medication Reconciliation Pharmacy has completed the medication reconciliation. Pt no longer taking methadone, last dose was 40 mg- given roughly 20 days ago. Pt stated the provider is switching him over to sublocade 300 mg. He has not received his dose yet. He has been taking suboxone.
[2024-02-26 22:31] LABS: Amphetamine Screen Urine Not Detected (Not Detect); Barbiturates, Urine Not Detected (Not Detect); Benzodiazepines Screen Urine Not Detected (Not Detect); Buprenorphine Scr Not Detected (Not Detect); Cannabinoid Screen Urine Not Detected (Not Detect); Cocaine Screen Urine Not Detected (Not Detect); Fentanyl, urine POSITIVE (Not Detect); Methadone Screen, Urine Not Detected (Not Detect); Opiate Screen Urine POSITIVE (Not Detect); Oxycodone Screen Urine Not Detected (Not Detect); Phencyclidine Screen Urine Not Detected (Not Detect)
[2024-02-26] MEDS: Divalproex Sodium ER 250 MG TAB.ER.24H 1250 MG PO (23:15)
[2024-02-26] MEDS: Gabapentin 400 MG CAPSULE 1200 MG PO (23:15)
[2024-02-26] MEDS: QUEtiapine Fumarate 50 MG TABLET 150 MG PO (23:15)
[2024-02-26] MEDS: Amitriptyline HCl 10 MG TABLET 20 MG PO (23:16)
--- NOTE | 2024-02-26 23:25 | PC.NURSE ---
pt refused suboxone states i dont take that. aware.
[2024-02-27 00:28] VITALS: BP 141/75; PULSE 78; RESP 18; TEMP 36.7; O2SAT 96
[2024-02-27] MEDS: 0.9 % Sodium Chloride Flush 3 ML SYRINGE IVFLUSH ×4 (00:52→20:36)
[2024-02-27] MEDS: Ampicillin Sodium/Sulbactam Na 3 GM in 0.9 % Sodium Chloride 100 ML IV ×4 (02:45→20:36)
[2024-02-27 03:11] VITALS: BP 119/57; PULSE 75; RESP 18; TEMP 36.7; O2SAT 92
[2024-02-27] MEDS: Famotidine 20 MG TABLET PO (05:36)
[2024-02-27 06:33] LABS: MANUAL DIFF FLAG NO
[2024-02-27 06:59] LABS: Anion Gap 11 (12-20); Blood Urea Nitrogen 22 mg/dL (9-16); Calcium 9.1 mg/dL (8.4-10.2); Carbon Dioxide 24 mmol/L (22-29); Chloride 110 mmol/L (96-108); Creatinine Clr Calc Pharmacy 61.2; Estimated Glomerular Filt Rate > 60; Glucose Random 88 mg/dL (60-115); Potassium 4.4 mmol/L (3.3-5.1); Sodium 141 mmol/L (135-145)
[2024-02-27 07:06] LABS: Basophils Absolute Auto 0.1 X10*3/uL (0.0-0.2); Basophils Percent Auto 0.5 % (0-2); Eosinophils Absolute Auto 0.4 X10*3/uL (0.0-0.4); Eosinophils Percent Auto 2.8 % (0-4); Hematocrit 30.1 % (42.0-52.0); Hemoglobin 9.6 g/dl (14.0-18.0); Imm Gran Abs Auto 0.03 X10*3/uL (0.00-0.03); Imm Gran Pct Auto 0.2 % (0.0-0.4); Lymphocytes Absolute Auto 3.8 X10*3/uL (1.2-4.9); Lymphocytes Percent Auto 30.3 % (20-40); Mean Corpuscular HGB Conc 31.9 g/dl (31.0-36.0); Mean Corpuscular Hemoglobin 28.9 pg (27.0-33.0); Mean Corpuscular Volume 90.7 fL (80.0-98.0); Mean Platelet Volume 9.8 fL (9.4-12.4); Monocytes Absolute Auto 0.9 X10*3/uL (0.1-1.2); Neutrophils Absolute Auto 7.3 x10*3/uL (2.0-8.3); Neutrophils Percent Auto 59.2 % (45-73); Platelet Count 225 X10*3/uL (160-400); Red Blood Count 3.32 X10*6/uL (4.60-5.80); Red Cell Distribution Width 15.5 % (11.0-16.0); White Blood Count 12.4 X10*3/uL (4.8-10.8)
[2024-02-27 07:37] VITALS: BP 149/84; PULSE 76; RESP 18; TEMP 37.3; O2SAT 96
[2024-02-27 08:07] LABS: Procalcitonin 0.05 ng/mL
[2024-02-27] MEDS: Nicotine 21 MG PATCH.TD24 TRANSDERMA (08:31)
[2024-02-27] MEDS: Cyanocobalamin (Vitamin B-12) 1,000 MCG TABLET 1000 MCG PO (08:31)
[2024-02-27] MEDS: Memantine HCl 5 MG TABLET PO (08:32)
[2024-02-27] MEDS: Multivitamin TABLET 1 TAB PO (08:32)
[2024-02-27] MEDS: Cholecalciferol (Vitamin D3) 25 MCG TABLET 50 MCG PO (08:32)
[2024-02-27] MEDS: NaPROXEN 250 MG TABLET PO ×2 (08:32→20:35)
[2024-02-27] MEDS: Gabapentin 300 MG CAPSULE 900 MG PO ×2 (08:32→13:01)
[2024-02-27] MEDS: Magnesium Oxide 400 MG TABLET PO (08:32)
[2024-02-27] MEDS: Calcium + Vitamin D 250 MG TABLET PO (08:32)
--- NOTE | 2024-02-27 09:27 | HO.PM.IMPN ---
Subjective Subjective Date of Service: 02/27/24 Interval History: declines Suboxone states snorted only a little heroin and denies that it is a problem he has Narcan cough improved on 2L O2 tolerating POs Review of Systems Review of Systems: Yes all other systems are reviewed and are negative Physical Exam Vital Signs: Vital Signs: Last Vital Signs Temp 99.2 F 02/27/24 07:37 Pulse 76 02/27/24 07:37 Resp 18 02/27/24 07:37 BP 149/84 H 02/27/24 07:37 Pulse Ox 96 02/27/24 07:37 O2 Del Method Nasal Cannula 02/27/24 07:37 O2 Flow Rate 2 02/27/24 07:37 Oxygen Flow Rate 4 02/26/24 15:32 BMI result Body Mass Index 23.6 Gen: in no acute distress HEENT: sclera anicteric, moist mucus membranes Neck: supple Lungs: diminished air entry Heart: regular rate and rhythm, no murmurs Abd: soft, non-tender, non-distended Ext: no edema Skin: warm/well-perfused Neuro: alert and oriented x3, no focal findings Psych: appropriate affect Objective Data Active Medications Acetaminophen (Acetaminophen 325 Mg Tablet) 650 mg PO Q6H PRN PRN Reason: Pain, Mild (Pain Scale 1-3), fever or headache Amitriptyline HCl (Amitriptyline Hcl 10 Mg Tablet) 20 mg PO BEDTIME [facility] Last Admin: 02/26/24 23:16 Dose: 20 mg Documented By: JOHN Buprenorphine/Naloxone (Buprenorphine/Naloxone 8/2 Mg Film) 1 film SUBLINGUAL TID [facility] Last Admin: 02/27/24 08:41 Dose: Not Given Documented By: TOMER Non-Admin Reason: Patient Refused Calcium Carbonate (Calcium Carbonate 750 Mg Tab.Chew) 750 mg PO Q4H PRN PRN Reason: Heartburn Calcium Carbonate/Cholecalciferol (Calcium + Vitamin D 250 Mg Tablet) 250 mg PO DAILY [facility] Last Admin: 02/27/24 08:32 Dose: 250 mg Documented By: TOMER Cyanocobalamin (Cyanocobalamin (Vitamin B-12) 1,000 Mcg Tablet) 1,000 mcg PO DAILY [facility] Last Admin: 02/27/24 08:31 Dose: 1,000 mcg Documented By: TOMER Cyclobenzaprine HCl (Cyclobenzaprine Hcl 5 Mg Tablet) 5 mg PO BID PRN PRN Reason: Muscle Spasm Divalproex Sodium (Divalproex Sodium Er 250 Mg Tab.Er.24h) 1,250 mg PO BEDTIME [facility] Last Admin: 02/26/24 23:15 Dose: 1,250 mg Documented By: JOHN Enoxaparin Sodium (Enoxaparin Sodium 40 Mg/0.4 Ml Syringe) 40 mg SUBCUT Q24H [facility] Last Admin: 02/26/24 22:10 Dose: 40 mg Documented By: JOHN Famotidine (Famotidine 20 Mg Tablet) 20 mg PO DAILY@0630 [facility] Last Admin: 02/27/24 05:36 Dose: 20 mg Documented By: ALESSANDRO Gabapentin (Gabapentin 400 Mg Capsule) 1,200 mg PO BEDTIME [facility] Last Admin: 02/26/24 23:15 Dose: 1,200 mg Documented By: JOHN Gabapentin (Gabapentin 300 Mg Capsule) 900 mg PO BID@0800,1200 [facility] Last Admin: 02/27/24 08:32 Dose: 900 mg Documented By: TOMER Ampicillin Sodium/Sulbactam (Sodium 3 gm/ Sodium Chloride) 100 mls @ 200 mls/hr IV Q6H [facility] Last Infusion: 02/27/24 09:16 Dose: Infused Documented By: TOMER Magnesium Hydroxide (Milk Of Magnesia 30 Ml Oral.Susp) 30 ml PO DAILY PRN PRN Reason: Constipation Magnesium Oxide (Magnesium Oxide 400 Mg Tablet) 400 mg PO DAILY [facility] Last Admin: 02/27/24 08:32 Dose: 400 mg Documented By: TOMER Melatonin (Melatonin 3 Mg Tablet) 6 mg PO BEDTIME PRN PRN Reason: Insomnia Memantine (Memantine Hcl 5 Mg Tablet) 5 mg PO DAILY [facility] Last Admin: 02/27/24 08:32 Dose: 5 mg Documented By: TOMER Multivitamins/Vitamin C (Multivitamin Tablet) 1 tab PO DAILY [facility] Last Admin: 02/27/24 08:32 Dose: 1 tab Documented By: TOMER Naproxen (Naproxen 250 Mg Tablet) 250 mg PO BID [facility] Last Admin: 02/27/24 08:32 Dose: 250 mg Documented By: TOMER Nicotine (Nicotine 21 Mg Patch.Td24) 21 mg TRANSDERMA DAILY [facility] Last Admin: 02/27/24 08:31 Dose: 21 mg Documented By: TOMER Ondansetron HCl (Ondansetron Hcl 4 Mg/2 Ml Vial) 4 mg IVPUSH Q8H PRN PRN Reason: Nausea and Vomiting Quetiapine Fumarate (Quetiapine Fumarate 50 Mg Tablet) 150 mg PO BEDTIME [facility] Last Admin: 02/26/24 23:15 Dose: 150 mg Documented By: JOHN Senna/Docusate Sodium (Sennosides/Docusate Sodium Tablet) 2 tab PO BEDTIME PRN PRN Reason: Constipation Sodium Chloride (0.9 % Sodium Chloride Flush 3 Ml Syringe) 3 ml IVFLUSH QSHIFT [facility] Last Admin: 02/27/24 08:30 Dose: 3 ml Documented By: TOMER Vitamin D (Cholecalciferol (Vitamin D3) 25 Mcg Tablet) 50 mcg PO DAILY [facility] Last Admin: 02/27/24 08:32 Dose: 50 mcg Documented By: TOMER Labs 02/27/24 06:11 02/27/24 06:11 Labs: Laboratory Results - last 24 hr 02/26/24 02/26/24 02/26/24 15:45 16:22 18:41 MCV 90.2 MCH 29.3 MCHC 32.5 RDW 15.3 Plt Count 285 D MPV 9.7 Immature Gran % (Auto) 0.5 H Neut % (Auto) 49.2 Lymph % (Auto) 40.4 H [place] % (Auto) 8.6 Eos % (Auto) 0.7 Baso % (Auto) 0.6 Lymph # (Auto) 3.4 [place] # (Auto) 0.7 Eos # (Auto) 0.1 Baso # (Auto) 0.1 Abs Immat Gran (auto) 0.04 H Absolute Neuts (auto) 4.2 Absolute Nucleated RBC 0.000 Nucleated RBC % (auto) 0.0 Hold Purple Top SEE NOTE Hold Blue Top SEE NOTE Anion Gap 13 Estim Creat Clear Calc 47.4 Estimated GFR > 60 Random Glucose 103 Lactic Acid 2.8 H* Lactic Acid F/U @ 2Hr 1.8 Calcium 9.6 D Magnesium 2.1 Total Bilirubin 0.2 AST 17 ALT 13 Alkaline Phosphatase 56 Troponin I High Sens 4.5 Total Protein 7.9 Albumin 4.1 Lipase 12 Procalcitonin Hold Green Top See Note Urine Color Urine Appearance Urine pH Ur Specific [place] Urine Protein Urine Glucose (UA) Urine Ketones Urine Blood Urine Nitrite Ur Leukocyte Esterase Urine RBC Urine WBC Ur Squamous Epith Cells Urine Bacteria Hyaline Casts Urine Opiates Screen Ur Buprenorphine Scrn Ur Oxycodone Screen Urine Methadone Screen Urine Fentanyl Screen Ur Barbiturates Screen Ur Phencyclidine Scrn Ur Amphetamines Screen U Benzodiazepines Scrn Urine Cocaine Screen U Marijuana (THC) Screen Ethyl Alcohol < 10 Influenza Type A (PCR) NEGATIVE Influenza Type B (PCR) NEGATIVE RSV RNA Qual (PCR) NEGATIVE SARS-CoV-2 RNA (RT-PCR) NEGATIVE 02/26/24 02/27/24 21:37 06:11 MCV 90.7 MCH 28.9 MCHC 31.9 RDW 15.5 Plt Count 225 MPV 9.8 Immature Gran % (Auto) 0.2 Neut % (Auto) 59.2 Lymph % (Auto) 30.3 [place] % (Auto) 7.0 Eos % (Auto) 2.8 Baso % (Auto) 0.5 Lymph # (Auto) 3.8 [place] # (Auto) 0.9 Eos # (Auto) 0.4 Baso # (Auto) 0.1 Abs Immat Gran (auto) 0.03 Absolute Neuts (auto) 7.3 Absolute Nucleated RBC 0.000 Nucleated RBC % (auto) 0.0 Hold Purple Top Hold Blue Top Anion Gap 11 L Estim Creat Clear Calc 61.2 Estimated GFR > 60 Random Glucose 88 Lactic Acid Lactic Acid F/U @ 2Hr Calcium 9.1 Magnesium Total Bilirubin AST ALT Alkaline Phosphatase Troponin I High Sens Total Protein Albumin Lipase Procalcitonin 0.05 Hold Green Top Urine Color Yellow Urine Appearance Clear Urine pH 6.5 Ur Specific [place] 1.015 Urine Protein Trace Urine Glucose (UA) Negative Urine Ketones Negative Urine Blood Moderate (2+) H Urine Nitrite Negative Ur Leukocyte Esterase Negative Urine RBC 0-2 Urine WBC 0-5 Ur Squamous Epith Cells 0-2 Urine Bacteria None Seen Hyaline Casts 0-2 Urine Opiates Screen POSITIVE H Ur Buprenorphine Scrn Not Detected Ur Oxycodone Screen Not Detected Urine Methadone Screen Not Detected Urine Fentanyl Screen POSITIVE H Ur Barbiturates Screen Not Detected Ur Phencyclidine Scrn Not Detected Ur Amphetamines Screen Not Detected U Benzodiazepines Scrn Not Detected Urine Cocaine Screen Not Detected U Marijuana (THC) Screen Not Detected Ethyl Alcohol Influenza Type A (PCR) Influenza Type B (PCR) RSV RNA Qual (PCR) SARS-CoV-2 RNA (RT-PCR) Assessment and Plan (1) Sepsis: Status: Acute (2) Acute hypoxic respiratory failure: Status: Acute Plan d2 73yo M with OUD on Suboxone, GERD, Bipolar disorder who had a witnessed fall in public after snorting heroin and was found to be hypoxic + hypotensive; admitted for sepsis + AHRF due to PNA sepsis due to PNA, likely aspiration - 02/25- ampicillin-sulbactam, follow BCx, trend PCT - lactate normalized acute hypoxic respiratory failure - supplemental O2, wean as tolerated hypotension - due to dehydration + overdose; resolved after IV fluid resuscitation OUD - declining his usual Suboxone; Addiction Medicine consultation GERD - famotidine mood disorder - continue home medications: amitriptylline, valproate, quetiapine, gabapentin tobacco abuse - NRT VTE ppx - enoxaparin dispo - PT eval In my clinical judgment, the patient requires continued inpatient hospitalization for the following reasons: IV ABX, hypoxia Total time managing care of this patient today: 35 minutes. Quality Stroke Does the patient have a stroke diagnosis?: No VTE Prior VTE?: No VTE Risk Level:: Medical - moderate - high VTE Device Contraindication: Treatment Not Indicated VTE Drug Contraindication: N/A - Med Ordered
--- NOTE | 2024-02-27 11:54 | MHC.CM.PN ---
pt lives with son pt reports he needs a ride homewhen dcd ,[facility] pt will be seen by addiction medicine prior to dc
--- NOTE | 2024-02-27 12:50 | P.PNADD_ITS ---
Subjective Subjective Date of Service: 02/27/24 Reason For Visit: Fall Interim History: Patient with history of OUD admitted with pneumonia and acute hypoxic respiratory failure following suspected overdose Patient seen in room 357. Awake, alert, engaged in interview, bright affect. Minimizing what led to hospital admission--initially denying any substance use then stating, it was just one mistake, it will not happen again . Denies being engaged in treatment for OUD, despite [place] Pat showing recent sublocade order--he states he is not planning on getting the injection, but will meet with provider at [facility] after discharge. He appears comfortble and denies any withdrawal sx. Review of Systems Constitutional: Reports as per HPI Mental Status Exam Mental Status Exam Level of Consciousness: Awake, Appropriate and Alert Diagnostics Vital Signs (24Hr): Vital Signs - 24 hr 02/26/24 15:32 02/26/24 16:05 02/26/24 16:42 Temperature 100.3 F 100.1 F Pulse Rate 106 H 97 87 Respiratory Rate 14 16 25 H Blood Pressure 86/47 L 94/77 76/52 L Pulse Oximetry 96 87 L 95 Oxygen Delivery Method Nasal Cannula Room Air Nasal Cannula Oxygen Flow Rate 2 02/26/24 17:49 02/26/24 17:53 02/26/24 18:00 Temperature 98.5 F 98.3 F Pulse Rate 81 79 88 Respiratory Rate 16 13 16 Blood Pressure 89/68 L 102/75 159/111 H Pulse Oximetry 99 99 97 Oxygen Delivery Method Nasal Cannula Nasal Cannula Nasal Cannula Oxygen Flow Rate 2 2 2 02/26/24 21:18 02/26/24 23:42 02/27/24 00:28 Temperature 98.4 F 98.5 F 98.1 F Pulse Rate 92 64 78 Respiratory Rate 15 16 18 Blood Pressure 176/93 H 154/78 H 141/75 H Pulse Oximetry 97 98 96 Oxygen Delivery Method Room Air Room Air Room Air Oxygen Flow Rate 02/27/24 03:11 02/27/24 07:37 Temperature 98.1 F 99.2 F Pulse Rate 75 76 Respiratory Rate 18 18 Blood Pressure 119/57 L 149/84 H Pulse Oximetry 92 96 Oxygen Delivery Method Room Air Nasal Cannula Oxygen Flow Rate 2 BMI result Body Mass Index 23.6 Labs 02/27/24 06:11 02/27/24 06:11 Labs: Laboratory Results - last 48 hr 02/26/24 02/26/24 02/26/24 15:45 16:22 18:41 WBC 8.5 RBC 3.58 L Hgb 10.5 L Hct 32.3 L MCV 90.2 MCH 29.3 MCHC 32.5 RDW 15.3 Plt Count 285 D MPV 9.7 Immature Gran % (Auto) 0.5 H Neut % (Auto) 49.2 Lymph % (Auto) 40.4 H [place] % (Auto) 8.6 Eos % (Auto) 0.7 Baso % (Auto) 0.6 Lymph # (Auto) 3.4 [place] # (Auto) 0.7 Eos # (Auto) 0.1 Baso # (Auto) 0.1 Abs Immat Gran (auto) 0.04 H Absolute Neuts (auto) 4.2 Absolute Nucleated RBC 0.000 Nucleated RBC % (auto) 0.0 Hold Purple Top SEE NOTE Hold Blue Top SEE NOTE Sodium 142 Potassium 4.7 Chloride 111 H Carbon Dioxide 23 Anion Gap 13 BUN 23 H Creatinine 1.16 Estim Creat Clear Calc 47.4 Estimated GFR > 60 Random Glucose 103 Lactic Acid 2.8 H* Lactic Acid F/U @ 2Hr 1.8 Calcium 9.6 D Magnesium 2.1 Total Bilirubin 0.2 AST 17 ALT 13 Alkaline Phosphatase 56 Troponin I High Sens 4.5 Total Protein 7.9 Albumin 4.1 Lipase 12 Procalcitonin Hold Green Top See Note Urine Color Urine Appearance Urine pH Ur Specific [place] Urine Protein Urine Glucose (UA) Urine Ketones Urine Blood Urine Nitrite Ur Leukocyte Esterase Urine RBC Urine WBC Ur Squamous Epith Cells Urine Bacteria Hyaline Casts Urine Opiates Screen Ur Buprenorphine Scrn Ur Oxycodone Screen Urine Methadone Screen Urine Fentanyl Screen Ur Barbiturates Screen Ur Phencyclidine Scrn Ur Amphetamines Screen U Benzodiazepines Scrn Urine Cocaine Screen U Marijuana (THC) Screen Ethyl Alcohol < 10 Influenza Type A (PCR) NEGATIVE Influenza Type B (PCR) NEGATIVE RSV RNA Qual (PCR) NEGATIVE SARS-CoV-2 RNA (RT-PCR) NEGATIVE 02/26/24 02/27/24 21:37 06:11 WBC 12.4 H RBC 3.32 L Hgb 9.6 L Hct 30.1 L MCV 90.7 MCH 28.9 MCHC 31.9 RDW 15.5 Plt Count 225 MPV 9.8 Immature Gran % (Auto) 0.2 Neut % (Auto) 59.2 Lymph % (Auto) 30.3 [place] % (Auto) 7.0 Eos % (Auto) 2.8 Baso % (Auto) 0.5 Lymph # (Auto) 3.8 [place] # (Auto) 0.9 Eos # (Auto) 0.4 Baso # (Auto) 0.1 Abs Immat Gran (auto) 0.03 Absolute Neuts (auto) 7.3 Absolute Nucleated RBC 0.000 Nucleated RBC % (auto) 0.0 Hold Purple Top Hold Blue Top Sodium 141 Potassium 4.4 Chloride 110 H Carbon Dioxide 24 Anion Gap 11 L BUN 22 H Creatinine 0.90 Estim Creat Clear Calc 61.2 Estimated GFR > 60 Random Glucose 88 Lactic Acid Lactic Acid F/U @ 2Hr Calcium 9.1 Magnesium Total Bilirubin AST ALT Alkaline Phosphatase Troponin I High Sens Total Protein Albumin Lipase Procalcitonin 0.05 Hold Green Top Urine Color Yellow Urine Appearance Clear Urine pH 6.5 Ur Specific [place] 1.015 Urine Protein Trace Urine Glucose (UA) Negative Urine Ketones Negative Urine Blood Moderate (2+) H Urine Nitrite Negative Ur Leukocyte Esterase Negative Urine RBC 0-2 Urine WBC 0-5 Ur Squamous Epith Cells 0-2 Urine Bacteria None Seen Hyaline Casts 0-2 Urine Opiates Screen POSITIVE H Ur Buprenorphine Scrn Not Detected Ur Oxycodone Screen Not Detected Urine Methadone Screen Not Detected Urine Fentanyl Screen POSITIVE H Ur Barbiturates Screen Not Detected Ur Phencyclidine Scrn Not Detected Ur Amphetamines Screen Not Detected U Benzodiazepines Scrn Not Detected Urine Cocaine Screen Not Detected U Marijuana (THC) Screen Not Detected Ethyl Alcohol Influenza Type A (PCR) Influenza Type B (PCR) RSV RNA Qual (PCR) SARS-CoV-2 RNA (RT-PCR) Imaging Radiology Impressions: ITS Impressions Chest X-Ray 02/26/24 15:45 IMPRESSION: Mild diffuse chronic interstitial disease. Electronically signed by: Meghan Zurita MD 02/26/2024 09:01 PM EDT RP Head CT 02/26/24 15:45 IMPRESSION: 1. No acute intracranial abnormality. 2. No acute osseous abnormality within the cervical spine. Electronically signed by: Lizbet Levin MD 02/26/2024 08:19 PM EDT RP Cervical Spine CT 09/27/24 18:28 IMPRESSION: 1. No acute intracranial abnormality. 2. No acute osseous abnormality within the cervical spine. Electronically signed by: Lizbet Levin MD 02/26/2024 08:19 PM EDT RP Elbow X-Ray 02/26/24 18:37 IMPRESSION: Question soft tissue prominence/swelling posterior to the distal humerus. This could reflect soft tissue contusion or hematoma. No fracture detected Electronically signed by: Lawrence Benoit MD 02/26/2024 08:54 PM EDT RP Medications Medications Current Medications Acetaminophen (Acetaminophen 325 Mg Tablet) 650 mg PO Q6H PRN PRN Reason: Pain, Mild (Pain Scale 1-3), fever or headache Amitriptyline HCl (Amitriptyline Hcl 10 Mg Tablet) 20 mg PO BEDTIME [facility] Last Admin: 02/26/24 23:16 Dose: 20 mg Buprenorphine/Naloxone (Buprenorphine/Naloxone 8/2 Mg Film) 1 film SUBLINGUAL TID [facility] Last Admin: 02/27/24 08:41 Dose: Not Given Calcium Carbonate (Calcium Carbonate 750 Mg Tab.Chew) 750 mg PO Q4H PRN PRN Reason: Heartburn Calcium Carbonate/Cholecalciferol (Calcium + Vitamin D 250 Mg Tablet) 250 mg PO DAILY [facility] Last Admin: 02/27/24 08:32 Dose: 250 mg Cyanocobalamin (Cyanocobalamin (Vitamin B-12) 1,000 Mcg Tablet) 1,000 mcg PO DAILY [facility] Last Admin: 02/27/24 08:31 Dose: 1,000 mcg Cyclobenzaprine HCl (Cyclobenzaprine Hcl 5 Mg Tablet) 5 mg PO BID PRN PRN Reason: Muscle Spasm Divalproex Sodium (Divalproex Sodium Er 250 Mg Tab.Er.24h) 1,250 mg PO BEDTIME [facility] Last Admin: 02/26/24 23:15 Dose: 1,250 mg Enoxaparin Sodium (Enoxaparin Sodium 40 Mg/0.4 Ml Syringe) 40 mg SUBCUT Q24H [facility] Last Admin: 02/26/24 22:10 Dose: 40 mg Famotidine (Famotidine 20 Mg Tablet) 20 mg PO DAILY@0630 [facility] Last Admin: 02/27/24 05:36 Dose: 20 mg Gabapentin (Gabapentin 400 Mg Capsule) 1,200 mg PO BEDTIME [facility] Last Admin: 02/26/24 23:15 Dose: 1,200 mg Gabapentin (Gabapentin 300 Mg Capsule) 900 mg PO BID@0800,1200 [facility] Last Admin: 02/27/24 08:32 Dose: 900 mg Ampicillin Sodium/Sulbactam (Sodium 3 gm/ Sodium Chloride) 100 mls @ 200 mls/hr IV Q6H [facility] Last Infusion: 02/27/24 09:16 Dose: Infused Magnesium Hydroxide (Milk Of Magnesia 30 Ml Oral.Susp) 30 ml PO DAILY PRN PRN Reason: Constipation Magnesium Oxide (Magnesium Oxide 400 Mg Tablet) 400 mg PO DAILY [facility] Last Admin: 02/27/24 08:32 Dose: 400 mg Melatonin (Melatonin 3 Mg Tablet) 6 mg PO BEDTIME PRN PRN Reason: Insomnia Memantine (Memantine Hcl 5 Mg Tablet) 5 mg PO DAILY [facility] Last Admin: 02/27/24 08:32 Dose: 5 mg Multivitamins/Vitamin C (Multivitamin Tablet) 1 tab PO DAILY [facility] Last Admin: 02/27/24 08:32 Dose: 1 tab Naproxen (Naproxen 250 Mg Tablet) 250 mg PO BID [facility] Last Admin: 02/27/24 08:32 Dose: 250 mg Nicotine (Nicotine 21 Mg Patch.Td24) 21 mg TRANSDERMA DAILY [facility] Last Admin: 02/27/24 08:31 Dose: 21 mg Ondansetron HCl (Ondansetron Hcl 4 Mg/2 Ml Vial) 4 mg IVPUSH Q8H PRN PRN Reason: Nausea and Vomiting Quetiapine Fumarate (Quetiapine Fumarate 50 Mg Tablet) 150 mg PO BEDTIME [facility] Last Admin: 02/26/24 23:15 Dose: 150 mg Senna/Docusate Sodium (Sennosides/Docusate Sodium Tablet) 2 tab PO BEDTIME PRN PRN Reason: Constipation Sodium Chloride (0.9 % Sodium Chloride Flush 3 Ml Syringe) 3 ml IVFLUSH QSHIFT [facility] Last Admin: 02/27/24 08:30 Dose: 3 ml Vitamin D (Cholecalciferol (Vitamin D3) 25 Mcg Tablet) 50 mcg PO DAILY [facility] Last Admin: 02/27/24 08:32 Dose: 50 mcg Allergies Allergies Allergy/AdvReac Type Severity Reaction Status Date / Time No Known Allergies Allergy Verified 02/26/24 15:34 [No Known Allergies*] Assessment & Plan Assessment & Plan (1) Opioid use disorder: Status: Acute Code(s): F11.90 - Opioid use, unspecified, uncomplicated Assessment and Plan: * no withdrawal sx * guarded/not forthcoming regarding ongoing opiate use * overdose prevention/risk reduction discussion * reports he will be seeing addiction medicine provider at [facility] * declines restarting bupe during this admission Total time managing care of this patient today ____ minutes.
[2024-02-27 14:04] VITALS: PULSE 73; O2SAT 95
[2024-02-27 15:19] VITALS: BP 129/66; PULSE 71; RESP 18; TEMP 36.9; O2SAT 95
[2024-02-27 20:00] VITALS: BP 150/75; PULSE 74; RESP 16; TEMP 36.9; O2SAT 97
[2024-02-27] MEDS: Divalproex Sodium ER 250 MG TAB.ER.24H 1250 MG PO (20:34)
[2024-02-27] MEDS: QUEtiapine Fumarate 50 MG TABLET 150 MG PO (20:34)
[2024-02-27] MEDS: Amitriptyline HCl 10 MG TABLET 20 MG PO (20:35)
[2024-02-27] MEDS: Gabapentin 400 MG CAPSULE 1200 MG PO (20:35)
[2024-02-27] MEDS: Enoxaparin Sodium 40 MG/0.4 ML SYRINGE SUBCUT (20:35)
[2024-02-28] MEDS: Ampicillin Sodium/Sulbactam Na 3 GM in 0.9 % Sodium Chloride 100 ML IV ×4 (02:47→20:09)
[2024-02-28 04:00] VITALS: BP 161/76; PULSE 59; RESP 16; TEMP 36.3; O2SAT 94
[2024-02-28] MEDS: Famotidine 20 MG TABLET PO (05:45)
[2024-02-28 06:57] LABS: Hematocrit 30.1 % (42.0-52.0); Hemoglobin 9.6 g/dl (14.0-18.0); Mean Corpuscular HGB Conc 31.9 g/dl (31.0-36.0); Mean Corpuscular Hemoglobin 28.6 pg (27.0-33.0); Mean Corpuscular Volume 89.6 fL (80.0-98.0); Mean Platelet Volume 10.1 fL (9.4-12.4); Platelet Count 222 X10*3/uL (160-400); Red Blood Count 3.36 X10*6/uL (4.60-5.80); Red Cell Distribution Width 15.2 % (11.0-16.0); White Blood Count 10.1 X10*3/uL (4.8-10.8)
[2024-02-28 07:22] VITALS: BP 158/82; PULSE 66; RESP 16; TEMP 36.6; O2SAT 98
[2024-02-28] MEDS: 0.9 % Sodium Chloride Flush 3 ML SYRINGE IVFLUSH ×3 (07:51→20:09)
[2024-02-28 07:53] LABS: Immature Retic Fraction 9.8 % (2.3-13.4); Retic HGB Equivalent 33.5 pg (30.0-35.0); Reticulocyte Percent 1.2 % (0.5-1.8)
[2024-02-28] MEDS: Nicotine 21 MG PATCH.TD24 TRANSDERMA (07:54)
[2024-02-28] MEDS: Multivitamin TABLET 1 TAB PO (07:56)
[2024-02-28] MEDS: Calcium + Vitamin D 250 MG TABLET PO (07:56)
[2024-02-28] MEDS: Cyanocobalamin (Vitamin B-12) 1,000 MCG TABLET 1000 MCG PO (07:56)
[2024-02-28] MEDS: NaPROXEN 250 MG TABLET PO ×2 (07:56→20:13)
[2024-02-28] MEDS: Memantine HCl 5 MG TABLET PO (07:56)
[2024-02-28] MEDS: Magnesium Oxide 400 MG TABLET PO (07:57)
[2024-02-28] MEDS: Cholecalciferol (Vitamin D3) 25 MCG TABLET 50 MCG PO (07:57)
[2024-02-28] MEDS: Gabapentin 300 MG CAPSULE 900 MG PO ×2 (07:57→11:53)
[2024-02-28 08:02] LABS: Iron 36 mcg/dL (45-160); Lactate Dehydrogenase 163 U/L (118-273); Percent Iron Saturation 16 % (15-50); Total Iron Binding Capacity 223 mcg/dL (228-428); Unsaturated Iron Binding 187 ug/dL
[2024-02-28 08:22] LABS: Ferritin 154 ng/mL (20-250)
--- NOTE | 2024-02-28 09:51 | HO.PM.IMPN ---
Subjective Subjective Date of Service: 02/28/24 Interval History: denies that heroin is a problem for him weaned off O2 cough improved Review of Systems Review of Systems: Yes all other systems are reviewed and are negative Physical Exam Vital Signs: Vital Signs: Last Vital Signs Temp 98 F 02/28/24 07:22 Pulse 66 02/28/24 07:22 Resp 16 02/28/24 07:22 BP 158/82 H 02/28/24 07:22 Pulse Ox 98 02/28/24 07:22 O2 Del Method Room Air 02/28/24 07:22 O2 Flow Rate 2 02/27/24 07:37 Oxygen Flow Rate 4 02/26/24 15:32 BMI result Body Mass Index 23.6 Gen: in no acute distress HEENT: sclera anicteric, moist mucus membranes Neck: supple Lungs: diminished air entry Heart: regular rate and rhythm, no murmurs Abd: soft, non-tender, non-distended Ext: no edema Skin: warm/well-perfused Neuro: alert and oriented x3, no focal findings Psych: appropriate affect Objective Data Active Medications Acetaminophen (Acetaminophen 325 Mg Tablet) 650 mg PO Q6H PRN PRN Reason: Pain, Mild (Pain Scale 1-3), fever or headache Amitriptyline HCl (Amitriptyline Hcl 10 Mg Tablet) 20 mg PO BEDTIME [facility] Last Admin: 02/27/24 20:35 Dose: 20 mg Documented By: ALESSANDRO Buprenorphine/Naloxone (Buprenorphine/Naloxone 8/2 Mg Film) 1 film SUBLINGUAL TID [facility] Last Admin: 02/27/24 20:42 Dose: Not Given Documented By: ALESSANDRO Non-Admin Reason: Patient Refused Calcium Carbonate (Calcium Carbonate 750 Mg Tab.Chew) 750 mg PO Q4H PRN PRN Reason: Heartburn Calcium Carbonate/Cholecalciferol (Calcium + Vitamin D 250 Mg Tablet) 250 mg PO DAILY [facility] Last Admin: 02/28/24 07:56 Dose: 250 mg Documented By: TOMER Cyanocobalamin (Cyanocobalamin (Vitamin B-12) 1,000 Mcg Tablet) 1,000 mcg PO DAILY [facility] Last Admin: 02/28/24 07:56 Dose: 1,000 mcg Documented By: TOMER Cyclobenzaprine HCl (Cyclobenzaprine Hcl 5 Mg Tablet) 5 mg PO BID PRN PRN Reason: Muscle Spasm Divalproex Sodium (Divalproex Sodium Er 250 Mg Tab.Er.24h) 1,250 mg PO BEDTIME [facility] Last Admin: 02/27/24 20:34 Dose: 1,250 mg Documented By: ALESSANDRO Enoxaparin Sodium (Enoxaparin Sodium 40 Mg/0.4 Ml Syringe) 40 mg SUBCUT Q24H [facility] Last Admin: 02/27/24 20:35 Dose: 40 mg Documented By: ALESSANDRO Famotidine (Famotidine 20 Mg Tablet) 20 mg PO DAILY@0630 [facility] Last Admin: 02/28/24 05:45 Dose: 20 mg Documented By: ALESSANDRO Gabapentin (Gabapentin 400 Mg Capsule) 1,200 mg PO BEDTIME [facility] Last Admin: 02/27/24 20:35 Dose: 1,200 mg Documented By: ALESSANDRO Gabapentin (Gabapentin 300 Mg Capsule) 900 mg PO BID@0800,1200 [facility] Last Admin: 02/28/24 07:57 Dose: 900 mg Documented By: TOMER Ampicillin Sodium/Sulbactam (Sodium 3 gm/ Sodium Chloride) 100 mls @ 200 mls/hr IV Q6H [facility] Last Infusion: 02/28/24 08:46 Dose: Infused Documented By: TOMER Magnesium Hydroxide (Milk Of Magnesia 30 Ml Oral.Susp) 30 ml PO DAILY PRN PRN Reason: Constipation Magnesium Oxide (Magnesium Oxide 400 Mg Tablet) 400 mg PO DAILY [facility] Last Admin: 02/28/24 07:57 Dose: 400 mg Documented By: TOMER Melatonin (Melatonin 3 Mg Tablet) 6 mg PO BEDTIME PRN PRN Reason: Insomnia Memantine (Memantine Hcl 5 Mg Tablet) 5 mg PO DAILY [facility] Last Admin: 02/28/24 07:56 Dose: 5 mg Documented By: TOMER Multivitamins/Vitamin C (Multivitamin Tablet) 1 tab PO DAILY [facility] Last Admin: 02/28/24 07:56 Dose: 1 tab Documented By: TOMER Naproxen (Naproxen 250 Mg Tablet) 250 mg PO BID [facility] Last Admin: 02/28/24 07:56 Dose: 250 mg Documented By: TOMER Nicotine (Nicotine 21 Mg Patch.Td24) 21 mg TRANSDERMA DAILY [facility] Last Admin: 02/28/24 07:54 Dose: 21 mg Documented By: TOMER Ondansetron HCl (Ondansetron Hcl 4 Mg/2 Ml Vial) 4 mg IVPUSH Q8H PRN PRN Reason: Nausea and Vomiting Quetiapine Fumarate (Quetiapine Fumarate 50 Mg Tablet) 150 mg PO BEDTIME [facility] Last Admin: 02/27/24 20:34 Dose: 150 mg Documented By: ALESSANDRO Senna/Docusate Sodium (Sennosides/Docusate Sodium Tablet) 2 tab PO BEDTIME PRN PRN Reason: Constipation Sodium Chloride (0.9 % Sodium Chloride Flush 3 Ml Syringe) 3 ml IVFLUSH QSHIFT [facility] Last Admin: 02/28/24 07:51 Dose: 3 ml Documented By: TOMER Vitamin D (Cholecalciferol (Vitamin D3) 25 Mcg Tablet) 50 mcg PO DAILY [facility] Last Admin: 02/28/24 07:57 Dose: 50 mcg Documented By: TOMER Labs 02/28/24 06:13 02/27/24 06:11 Labs: Laboratory Results - last 24 hr 02/27/24 02/28/24 06:11 06:13 MCV 89.6 MCH 28.6 MCHC 31.9 RDW 15.2 Plt Count 222 MPV 10.1 Absolute Nucleated RBC 0.000 Nucleated RBC % (auto) 0.0 Absolute Retic 0.040 Percent Retic 1.2 Immature Retic Fraction 9.8 Retic Hgb Equivalent 33.5 Iron 36 L TIBC 223 L % Saturation 16 Unsat Iron Binding 187 Ferritin 154 Lactate Dehydrogenase 163 Microbiology Microbiology Results: Microbiology 02/26/24 16:19 Blood Culture - Preliminary Blood - Venous No growth after 24 hours. 02/26/24 15:45 Blood Culture - Preliminary Blood - Venous No growth after 24 hours. Assessment and Plan (1) Sepsis: Status: Acute (2) Acute hypoxic respiratory failure: Status: Acute Plan d3 73yo M with OUD on Suboxone, GERD, bipolar disorder who had a witnessed fall in public after snorting heroin and was found to be hypoxic + hypotensive; admitted for sepsis + AHRF due to PNA sepsis due to PNA, likely aspiration - 02/25- ampicillin-sulbactam, follow BCx x48h, trend PCT, transition to amox-clav upon discharge - lactate normalized acute hypoxic respiratory failure - weaned off O2 hypotension - due to dehydration + overdose; resolved after IV fluid resuscitation normocytic anemia - replete Fe; B12 + folate pending OUD - declining his usual Suboxone; Addiction Medicine consulted and pt is in denial GERD - famotidine mood disorder - continue home medications: amitriptylline, valproate, quetiapine, gabapentin tobacco abuse - NRT VTE ppx - enoxaparin dispo - PT eval done; anticipate home possibly tomorrow In my clinical judgment, the patient requires continued inpatient hospitalization for the following reasons: IV ABX, sepsis awaiting 48h blood cultures Total time managing care of this patient today: 35 minutes. Quality Stroke Does the patient have a stroke diagnosis?: No VTE Prior VTE?: No VTE Risk Level:: Medical - moderate - high VTE Device Contraindication: Treatment Not Indicated VTE Drug Contraindication: N/A - Med Ordered
[2024-02-28] MEDS: Ferrous Sulfate 324 MG TABLET.DR PO (11:53)
[2024-02-28 12:56] LABS: OBS Int Ctl Valid YES; OBS1 NEGATIVE (NEGATIVE)
[2024-02-28 15:36] VITALS: BP 149/68; PULSE 76; RESP 16; TEMP 36.8; O2SAT 97
[2024-02-28 19:52] VITALS: BP 167/79; PULSE 80; RESP 18; TEMP 36.8; O2SAT 98
[2024-02-28] MEDS: Enoxaparin Sodium 40 MG/0.4 ML SYRINGE SUBCUT (20:12)
[2024-02-28] MEDS: Divalproex Sodium ER 250 MG TAB.ER.24H 1250 MG PO (20:13)
[2024-02-28] MEDS: Amitriptyline HCl 10 MG TABLET 20 MG PO (20:14)
[2024-02-28] MEDS: QUEtiapine Fumarate 50 MG TABLET 150 MG PO (20:14)
[2024-02-28] MEDS: Gabapentin 400 MG CAPSULE 1200 MG PO (20:14)
[2024-02-29] MEDS: Ampicillin Sodium/Sulbactam Na 3 GM in 0.9 % Sodium Chloride 100 ML IV ×3 (02:34→14:43)
[2024-02-29 03:26] VITALS: BP 145/88; PULSE 65; RESP 18; TEMP 37.1; O2SAT 98
[2024-02-29] MEDS: Famotidine 20 MG TABLET PO (06:18)
[2024-02-29 06:24] LABS: Hematocrit 31.1 % (42.0-52.0); Hemoglobin 10.3 g/dl (14.0-18.0); Mean Corpuscular HGB Conc 33.1 g/dl (31.0-36.0); Mean Corpuscular Hemoglobin 29.3 pg (27.0-33.0); Mean Corpuscular Volume 88.4 fL (80.0-98.0); Mean Platelet Volume 9.9 fL (9.4-12.4); Platelet Count 241 X10*3/uL (160-400); Red Blood Count 3.52 X10*6/uL (4.60-5.80); Red Cell Distribution Width 15.2 % (11.0-16.0); White Blood Count 8.5 X10*3/uL (4.8-10.8)
[2024-02-29 07:12] LABS: Procalcitonin 0.03 ng/mL
[2024-02-29 07:26] LABS: Folate 14.9 ng/mL (> or = 4.0); Vitamin B12 917 pg/mL (200-900)
[2024-02-29 07:37] VITALS: BP 139/86; PULSE 70; RESP 20; TEMP 36.2; O2SAT 99
[2024-02-29] MEDS: Gabapentin 300 MG CAPSULE 900 MG PO ×2 (08:10→11:12)
[2024-02-29] MEDS: Ferrous Sulfate 324 MG TABLET.DR PO (08:10)
[2024-02-29] MEDS: Magnesium Oxide 400 MG TABLET PO (08:10)
[2024-02-29] MEDS: Cyanocobalamin (Vitamin B-12) 1,000 MCG TABLET 1000 MCG PO (08:10)
[2024-02-29] MEDS: NaPROXEN 250 MG TABLET PO (08:10)
[2024-02-29] MEDS: Multivitamin TABLET 1 TAB PO (08:10)
[2024-02-29] MEDS: Calcium + Vitamin D 250 MG TABLET PO (08:10)
[2024-02-29] MEDS: Cholecalciferol (Vitamin D3) 25 MCG TABLET 50 MCG PO (08:10)
[2024-02-29] MEDS: Memantine HCl 5 MG TABLET PO (08:10)
[2024-02-29] MEDS: Nicotine 21 MG PATCH.TD24 TRANSDERMA (08:11)
[2024-02-29 08:14] LABS: HBc Num1 0.16 S/CO (0.00-0.79); HBsAGNum1 0.47 S/CO (0.00-0.99); HIV AB/AG Nonreactive (Nonreactive); HIV Num 1 0.09 S/CO (0.00-0.99); Hepatitis B Core Antibody Nonreactive (Nonreactive); Hepatitis B Surface Antigen Negative (Negative); ~HepC Num1 0.13 S/CO (0.00-0.79); ~Hepatitis B Surface Antibody NONREACTIVE (Nonreactive); ~Hepatitis C Antibody Nonreactive (Nonreactive)
--- NOTE | 2024-02-29 12:09 | MHC.CM.PN ---
Addendum entered by Libia Bernstein 02/29/24 16:06: PT NOW MEDICALLY CLEARED TO DC CM INFORMED SON WHO REPORTS HE IS NOT IN THE AREA TO PROVIDE TRANSPORT PT REPORTS HE FEELS SAFE USING A LYFT LYFT TRANSPORT SCHEDULED FOR 1720 HOURS Original Note: YAMINI SPOKE TO PTS SON, GE, WHO REPORTS PT HAS AN APPT WITH [facility] TODAY ABOUT GETTING HIS NEW APPT HE WAS NOTIFIED THE PT WAS NOT MEDICALLY CLEARED TODAY AND MAY DC TOMORROW HE WILL CONTACT [facility] TO MAKE NEW ARRANGEMENTS
--- NOTE | 2024-02-29 14:50 | PM.DS ---
DS: Providers Provider Date of Service: 02/29/24 Date of admission: 02/26/24 20:54 Date of discharge: 02/29/24 Primary care physician: Unknown Physician Consults: 02/26/24 21:27 Addiction Medicine Routine Consulting Provider: Addiction Covering Reason for consultation: opioid use disorder DS: Diagnosis Discharge Diagnosis (1) Sepsis: Status: Acute (2) Acute hypoxic respiratory failure: Status: Acute DS: Summary Hospital Course Hospital Course: 73-year-old male with a PMH significant for?opiate use disorder on methadone GERD and by bipolar disorder who presents to the ED after witnessed fall?while outside walking on the sidewalk. Patient admits to snorting heroin earlier in the day and only has hazy recollection of events. Reports was outside walking when he felt lightheaded and dizzy and then slumped to the ground. Bystanders who witnessed event called EMS who found patient to be hypoxic at 84%. Unclear if EMS administered Narcan. Patient has had similar presentations to the ED in the past, including being found unresponsive on a bus and also previously on the sidewalk. Patient himself complains of chronic left-sided facial pain and right thigh pain that has been ongoing for 50+ years since patient was in the . Currently patient has no acute medical complaints and says he feels ?fine?. He is noted to be intermittently coughing during interview and exam, though no shortness a breath or difficulty breathing. No chest pain/pressure, palpitations. Denies fever, chills, nausea, vomiting, abdominal pain. No diarrhea. He is an active smoker. In the ED pt was tachycardic up to 106, tachypneic up to 25, hypotensive as low as 76/52, with low-grade fever of 100.3, and hypoxic as low as 87% on RA. Labs were significant for creatinine 1.16 (elevated from 0.77 on 11/20/2022) and lactic acid 2.8 with repeat 1.8, otherwise grossly unremarkable and around baseline for patient. No leukocytosis. Stable normocytic anemia left 10.5/32.3. No significant electrolyte abnormalities. Troponin WNL at 4.5. Ethyl alcohol undetectable. UA negative for UTI. CXR showed mild diffuse chronic interstitial disease. CT?of head showed no acute intracranial abnormality. CT of cervical spine showed no acute osseous abnormality. EKG demonstrated sinus rhythm with PACs but no evidence of significant ST elevations or depressions. Pt was treated with acetaminophen, IVF, vancomycin, and Zosyn. Pt will be admitted to the hospital for treatment and further evaluation of acute hypoxic respiratory failure likely secondary to aspiration pneumonia in the setting heroin use. Hospital course Patient admitted to general medical floor and started on Unasyn for likely aspiration pneumonia. Seen in consultation by addiction Medicine but minimizes heroin use; states this is not a chronic addiction and declined assistance. On the day of discharge all cultures are negative for greater than 48 hours and the patient is medically acceptable for discharge home and complete a course of Augmentin. [facility] to attend visit Time Attestation Discharge Coordination Time (in mins): 35 Quality: Safe Use of Opioids Does Pt have an Active Cancer Diagnosis on the Problem List?: No Quality: Stroke Does the patient have a stroke diagnosis?: No Physical Exam Vital Signs: Vital Signs: Last Vital Signs Temp 97.2 F 02/29/24 07:37 Pulse 70 02/29/24 07:37 Resp 20 02/29/24 07:37 BP 139/86 02/29/24 07:37 Pulse Ox 99 02/29/24 07:37 O2 Del Method Room Air 02/29/24 07:37 O2 Flow Rate 2 02/27/24 07:37 Oxygen Flow Rate 4 02/26/24 15:32 BMI result Body Mass Index 23.6 Const: Other: Awake alert no acute distress Resp: Other: Clear to auscultation bilaterally no rales rhonchi or wheezes Cardio: Other: No S4; positive S1-S2; no S3 murmurs rubs or gallops GI: Other: Soft nontender nondistended normoactive bowel sounds Neuro: Other: Clear the ulnar nerves 2 through 12 grossly intact save right facial asymmetry (chronic). Motor is 5/5 all extremities sensation is intact gait not observed. Cognition appropriate Extrem: Other: No edema bilaterally DS: Data Data Completed and Pending Labs on day of discharge: Laboratory Results - last 24 hr 02/28/24 02/29/24 06:13 05:19 WBC 8.5 RBC 3.52 L Hgb 10.3 L Hct 31.1 L MCV 88.4 MCH 29.3 MCHC 33.1 RDW 15.2 Plt Count 241 MPV 9.9 Absolute Nucleated RBC 0.000 Nucleated RBC % (auto) 0.0 Vitamin B12 917 H Folate 14.9 Procalcitonin 0.03 Hep Bs Antigen Negative Hep Bs Antibody NONREACTIVE Hep B Core Total Ab Nonreactive Hepatitis C Ab (EIA) Nonreactive HIV 1&2 Ab/P24 Ag 4thGn Nonreactive Preliminary micro results at discharge 02/26/24 16:19 Blood Culture - Preliminary Blood - Venous No growth after 48 hours. 02/26/24 15:45 Blood Culture - Preliminary Blood - Venous No growth after 48 hours. Discharge Plan Discharge Anticipated Discharge Date/Time: 02/29/24 14:44 Patient Disposition: Home, Self-Care Discharge Diagnosis: Acute hypoxic respiratory failure in backdrop of opioid use disorder Referrals: Physician,Unknown J [Primary Care Provider] - 1 Week Discharge Medications: New amoxicillin-pot clavulanate 875-125 mg tablet 1 tab PO BID Qty: 20 0RF naloxone [Narcan] 4 mg/actuation spray,non-aerosol 4 mg intranasal Q2M MDD 2 PRN (Reason: opioid overdose) Qty: 2 0RF Rx Instructions: spray 1 dose into ONE nostril; alternate nostrils w each dose until help arrives Continued magnesium oxide 420 mg Tablet 420 mg PO DAILY 30 Days Qty: 30 0RF acetaminophen 500 mg Tablet 1,000 mg PO TID PRN (Reason: Pain, Mild) 30 Days Qty: 60 0RF cyclobenzaprine 5 mg Tablet 5 mg PO BID PRN (Reason: Muscle Spasm) 30 Days Qty: 60 0RF calcium carbonate-vitamin D3 500 mg-3.125 mcg (125 unit) Tablet 1 tab PO BID 30 Days Qty: 60 0RF melatonin 5 mg Tablet 5 mg PO BEDTIME PRN (Reason: Sleep) 30 Days Qty: 30 0RF buprenorphine-naloxone 8-2 mg film 1 film sublingual TID Sublocade 300 mg/1.5 mL solution, extended rel syringe 300 mg subcut ONCE meloxicam 15 mg Tablet 7.5 mg PO DAILY cyanocobalamin (vitamin B-12) 1,000 mcg Tablet 1,000 mcg PO DAILY amitriptyline 10 mg Tablet 20 mg PO BEDTIME gabapentin 300 mg Capsule 900 mg PO BID@0800,1200 gabapentin 300 mg Capsule 1,200 mg PO BEDTIME Multivitamin 50 Plus Tablet 1 tab PO DAILY divalproex 250 mg tablet extended release 24 hr 1,250 mg PO BEDTIME memantine 5 mg Tablet 5 mg PO DAILY vitamin E (dl, acetate) 45 mg (100 unit) Capsule 45 mg PO DAILY quetiapine [Seroquel] 50 mg Tablet 150 mg PO BEDTIME cholecalciferol (vitamin D3) [Vitamin D3] 50 mcg (2,000 unit) Tablet 50 mcg PO DAILY sennosides-docusate sodium [Senna Plus] 8.6-50 mg tablet 2 tab PO BEDTIME PRN (Reason: Constipation) famotidine 20 mg tablet 20 mg PO DAILY@0630 alendronate 70 mg tablet 70 mg PO MO@0900 Discharge Orders: Discharge Order (Routine); Ordered 02/29/24 Ordered By: Chu Cole Diet: Advance to usual diet Activity on Discharge: As tolerated Stand Alone Forms: Patient Portal Discharge page Print Language: Cook Islander Care Plan Goals: Augmentin 875 twice daily for 10 days. This is an antibiotic to treat her pneumonia. Health Concerns: Resume all other medicines as taken before the hospital Plan of Treatment: Follow [facility] with [facility] provider next available appointment Assessment: See discharge summary
[2024-02-29 15:10] VITALS: BP 157/86; PULSE 82; RESP 16; TEMP 36.6; O2SAT 98
--- NOTE | 2024-02-29 15:33 | MHC.RECOVRN ---
Met with pt to follow up and provide support after meeting with MQ over the weekend. Pt laying in bed, awake, alert, easily engages in conversation. Provided overdose prevention and Narcan administration education. Pt reports he has Narcan at home but is grateful to be sent home with more. Denies questions or concerns for t/w. Discussed with Michelle Amador APRN.
== END 2024-02-29 17:15 | disposition home or self-care (01) | DRG 917 ==
LOC: HO.ED 20:55 → HO.EDOVER 20:59 → HO.S3 23:00
PROVIDERS: Family Medicine; Physician Assistant; Admitting Provider Student in an Organized Health Care Education/Training Program; Emergency Provider Internal Medicine; Referring Provider Student in an Organized Health Care Education/Training Program; Visit Provider Hospitalist
DX: T40.1X1A Poisoning by heroin, accidental (unintentional), initial encounter (principal); A41.9 Sepsis, unspecified organism; J69.0 Pneumonitis due to inhalation of food and vomit; J96.01 Acute respiratory failure with hypoxia; F11.20 Opioid dependence, uncomplicated; D64.9 Anemia, unspecified; E86.0 Dehydration; I95.9 Hypotension, unspecified; F31.9 Bipolar disorder, unspecified; F17.210 Nicotine dependence, cigarettes, uncomplicated; K21.9 Gastro-esophageal reflux disease without esophagitis; Z71.6 Tobacco abuse counseling; Z20.822 Contact with and (suspected) exposure to COVID-19; Z79.899 Other long term (current) drug therapy
CPT/HCPCS: 0241U; 36415; 70450; 71045; 72125; 73080; 80048; 80053; 80307; 81001; 82272; 82607; 82728; 82746; 83540; 83605; 83615; 83690; 83735; 84145; 84484; 85025; 85027; 85045; 86704; 86706; 86803; 87040; 87340; 87389; 93005; 97162; 99285; J0295; J1650; J2543; J3370

== ENCOUNTER → 2024-02-26 20:54 | Outpatient (BNV) | payer OTHER, SELFPAY | PROVIDERS: Admitting Provider Student in an Organized Health Care Education/Training Program; Emergency Provider Internal Medicine; Visit Provider Student in an Organized Health Care Education/Training Program | DX: A41.9 Sepsis, unspecified organism (principal); J96.01 Acute respiratory failure with hypoxia | CPT/HCPCS: 99223; 99232; 99239 ==

== ENCOUNTER → 2024-02-26 20:54 | Outpatient (BNV) | payer OTHER, SELFPAY | PROVIDERS: Admitting Provider Student in an Organized Health Care Education/Training Program; Emergency Provider Internal Medicine; Visit Provider Nurse Practitioner Psychiatric/Mental Health | DX: F11.90 Opioid use, unspecified, uncomplicated (principal) | CPT/HCPCS: 99231 ==

== ENCOUNTER 2024-07-06 10:26 | Emergency (ER) | payer OTHER, SELFPAY ==
[2024-07-06 10:50] VITALS: BP 112/68; PULSE 80; O2SAT 97
[2024-07-06 11:09] VITALS: BP 129/78; PULSE 70; RESP 18; TEMP 36.5; O2SAT 97; BMI 22.9
[2024-07-06 12:20] VITALS: BP 143/71; PULSE 63; RESP 17; TEMP 36.6; O2SAT 96
--- NOTE | 2024-07-06 13:08 | PC.NURSE ---
bladder scan pt only 17ml in bladder at this time. will provide fluids and attempt urine catch after.
[2024-07-06 13:20] LABS: MANUAL DIFF FLAG NO
--- OUTSIDE RECORDS SUMMARY | 2024-07-06 13:21 | XMS_ITS | Clinical Summary ---
Author Organization [facility] ity Address [address] [place] [address] Care Team Providers Care Job Captain Name Role Phone Unavailable Primary Care Provider Unavailabl e Social History Tobacco Use Types Packs/Day Years Used Date Smoking Tobacco: Never Assessed Sex and Gender Information Value Date Recorded Sex Assigned at Not on file Gender Identity Not on file Sexual Orientation Not on file Plan of Treatment Health Maintenance Due Date Last Done Comments DTaP,Tdap,and Td Vaccines (1 - Tdap) 1969 Zoster Vaccines (1 of 2) 2000 Pneumococcal Vaccine: 65+ Ye ars (1 of 1 - PCV) 11/19/2015 Abdominal Aortic Aneurysm (A AA) Screen 04/29/2022 Cholesterol Screening (Lipid Panel) 04/29/2022 Colorectal Cancer Screening: Colonoscopy 04/29/2022 Depression Screening 04/29/2022 Falls Risk Assessment 04/29/2022 Hepatitis C Screening 04/29/2022 Social Influencers of Health Screening 04/29/2022 COVID-19 Vaccine (1 - 2023-2 5 season) 2024 Influenza Vaccine (#1) 2024 RSV Immunization Patients 60 + Years Old (1 - 1-dose 75+ series) 2025 HIB Vaccines Aged Out No longer eligi ble based on patient's age to complete this topic HPV Vaccines Aged Out No longer eligi ble based on patient's age to complete this topic Hepatitis A Vaccines Aged Out No long er eligible based on patient's age to complete this topic Hepatitis B Vaccines Aged Out No long er eligible based on patient's age to complete this topic IPV Vaccines Aged Out No longer eligi ble based on patient's age to complete this topic MMR Vaccines Aged Out No longer eligi ble based on patient's age to complete this topic Meningococcal ACWY Vaccine Aged Out N o longer eligible based on patient's age to complete this topic RSV Immunization Patients Un amairani 20 months Aged Out No longer eligible b ased on patient's age to complete this topic Varicella Vaccines Aged Out No longer eligible based on patient's age to complete this topic Advance Directives Documents on File Type Date Recorded Patient Transfusion Nurse Expl anation Health Care Decision (hx) 10/07/2019 [place] DIRECTIVE Health Care Decision (hx) 10/07/2019 [place] DIRECTIVE Health Care Decision (hx) 10/07/2019 [place] DIRECTIVE
[2024-07-06 13:22] LABS: Basophils Percent Auto 0.4 % (0-2); Eosinophils Absolute Auto 0.1 X10*3/uL (0.0-0.4); Eosinophils Percent Auto 0.5 % (0-4); Hematocrit 35.4 % (42.0-52.0); Hemoglobin 11.5 g/dl (14.0-18.0); Imm Gran Abs Auto 0.07 X10*3/uL (0.00-0.03); Imm Gran Pct Auto 0.7 % (0.0-0.4); Lymphocytes Percent Auto 28.6 % (20-40); Mean Corpuscular HGB Conc 32.5 g/dl (31.0-36.0); Mean Corpuscular Hemoglobin 27.8 pg (27.0-33.0); Mean Corpuscular Volume 85.5 fL (80.0-98.0); Monocytes Absolute Auto 0.9 X10*3/uL (0.1-1.2); Monocytes Percent Auto 8.3 % (2-11); Neutrophils Absolute Auto 6.3 x10*3/uL (2.0-8.3); Neutrophils Percent Auto 61.5 % (45-73); Platelet Count 324 X10*3/uL (160-400); Red Blood Count 4.14 X10*6/uL (4.60-5.80); Red Cell Distribution Width 15.6 % (11.0-16.0); White Blood Count 10.3 X10*3/uL (4.8-10.8)
[2024-07-06 13:38] LABS: Alanine Aminotransferase 11 U/L (0-40); Albumin Level 3.7 g/dL (3.5-5.0); Alkaline Phosphatase 66 U/L (39-117); Anion Gap 12 (12-20); Aspartate Amino Transferase 25 U/L (5-37); Bilirubin Total 0.4 mg/dL (0.0-1.0); Blood Urea Nitrogen 19 mg/dL (9-16); Calcium 9.5 mg/dL (8.4-10.2); Carbon Dioxide 24 mmol/L (22-29); Chloride 104 mmol/L (96-108); Creatinine Clr Calc Pharmacy 76.3; Estimated Glomerular Filt Rate > 60; Glucose Random 97 mg/dL (60-115); Magnesium 1.9 mg/dL (1.6-2.6); Sodium 136 mmol/L (135-145); Total Protein 9.1 g/dL (6.5-8.0)
[2024-07-06] MEDS: 0.9 % Sodium Chloride 1,000 ML 999 ML IV (13:57)
[2024-07-06 14:00] LABS: Influenza A PCR POSITIVE (Negative); Influenza B PCR NEGATIVE (Negative); Resp Syncy Virus RNA Qual PCR NEGATIVE (Negative); SARS COV2 PCR INHOUSE NEGATIVE (Negative)
--- NOTE | 2024-07-06 17:06 | ED_ITS ---
HPI - Weakness General Chief complaint: Failure to Thrive Stated complaint: R ABD PAIN X4D PER EMS Time Seen by Provider: 07/06/24 12:35 Source: patient Limitations: no limitations and other (poor historian) History of Present Illness ED Provider: Edna Richardson PA-C HPI Narrative: 73-year-old male with a history of opioid use disorder, bipolar, presents from home with weakness. Per EMS, patient was seen by [facility] within the home as a follow up from a recent psychiatric consultation. Patient's son is supposed to be his primary caregiver, staff members who were on scene were unable to get a hold of him. EMS reports that the apartment was unkempt. The patient has had weakness and poor appetite over the past 4 days. Patient states he ambulates with a cane and walker at home. Denies nausea vomiting diarrhea. Denies chest pain, shortness of breath or fever. Related Data Home Medications ?Medication ?Instructions ?Recorded ?Confirmed alendronate 70 mg tablet 70 mg PO MO@0900 11/18/22 02/26/24 famotidine 20 mg tablet 20 mg PO DAILY@0630 11/18/22 02/26/24 amitriptyline 10 mg tablet 20 mg PO BEDTIME 02/26/24 02/26/24 buprenorphine 300 mg/1.5 mL 300 mg subcut ONCE 02/26/24 02/26/24 solution,exten.rel.subcutaneous syringe (Sublocade) buprenorphine 8 mg-naloxone 2 mg 1 film sublingual TID 02/26/24 02/26/24 sublingual film cholecalciferol (vitamin D3) 50 50 mcg PO DAILY 02/26/24 02/26/24 mcg (2,000 unit) tablet (Vitamin D3) cyanocobalamin (vitamin B-12) 1,000 mcg PO DAILY 02/26/24 02/26/24 1,000 mcg tablet divalproex 250 mg tablet,extended 1,250 mg PO BEDTIME 02/26/24 02/26/24 release 24 hr gabapentin 300 mg capsule 1,200 mg PO BEDTIME 02/26/24 02/26/24 gabapentin 300 mg capsule 900 mg PO BID@0800,1200 02/26/24 02/26/24 meloxicam 15 mg tablet 7.5 mg PO DAILY 02/26/24 02/26/24 memantine 5 mg tablet 5 mg PO DAILY 02/26/24 02/26/24 kbakowfjiiqh-srpedmmq-jnlgts 1 tab PO DAILY 02/26/24 02/26/24 tablet (Multivitamin 50 Plus tablet) quetiapine 50 mg tablet (Seroquel) 150 mg PO BEDTIME 02/26/24 02/26/24 sennosides 8.6 mg-docusate sodium 2 tab PO BEDTIME PRN Constipation 02/26/24 02/26/24 50 mg tablet (Senna Plus) vitamin E (dl, acetate) 45 mg (100 45 mg PO DAILY 02/26/24 02/26/24 unit) capsule Previous Rx's ?Medication ?Instructions ?Recorded acetaminophen 500 mg tablet 1,000 mg (2 x 500 mg) PO TID PRN 01/22/22 Pain, Mild 30 days #60 tabs calcium 500 mg (as 1 tab PO BID 30 days #60 tabs 01/22/22 carbonate)-vitamin D3 3.125 mcg (125 unit) tablet cyclobenzaprine 5 mg tablet 5 mg PO BID PRN Muscle Spasm 30 01/22/22 days #60 tabs magnesium oxide 420 mg tablet 420 mg PO DAILY 30 days #30 tabs 01/22/22 melatonin 5 mg tablet 5 mg PO BEDTIME PRN Sleep 30 days 01/22/22 #30 tabs amoxicillin 875 mg-potassium 1 tab PO BID #20 tabs 02/29/24 clavulanate 125 mg tablet naloxone 4 mg/actuation nasal 4 mg intranasal Q2M PRN opioid 02/29/24 spray (Narcan) overdose #2 ea Allergies Allergy/AdvReac Type Severity Reaction Status Date / Time No Known Allergies Allergy Verified 07/06/24 11:10 [No Known Allergies*] Review of Systems 2 Review of Systems: Yes all other systems are reviewed and are negative Constitutional: Constitutional: Reports fatigue, Denies fever(s), Reports malaise and Reports poor appetite Cardiovascular: Cardiovascular: Denies chest pain and Denies dyspnea Respiratory: Respiratory: Denies cough and Denies dyspnea Gastrointestinal: Gastrointestinal: Denies abdominal pain, Denies diarrhea, Denies nausea and Denies vomiting Endocrine: Endocrine: Reports fatigue PMFSH Past Medical History Attestation statement: The following information was validated with the patient. Medical History (Updated 07/06/24 @ 17:17 by OSMANY Cooley) Opioid use disorder, severe, on maintenance therapy Social History Social History Household Members: Family and Children Household Members Other:: Son Housing: House Do you presently have visiting nurse or other home services: No Unable to assess alcohol history related to: Unknown Alcohol intake: current Alcohol intake frequency: does not drink Patient Tobacco Use Status: Current everyday Tobacco user Tobacco use type: Cigarette Cigarette Packs Per Day: 0.5 Cigarettes Per Day: 9 Years Smoked: 50 Smoked in Last 30 Days: No e-Cigarette/Vaping Use: Never Used Second Hand Smoke Exposure: No Use of substances other than those prescribed or required for medical reasons: No Substance Use Type: Crack/Cocaine, Heroin and Marijuana Advance Directives: No Advance Directives Information Provided: Yes Do you have a plan to hurt others: No Plan service: No Sexual orientation: Straight/Heterosexual Physical Exam 2 Vital Signs: Vital Signs: Last Vital Signs Temp 97.9 F 07/06/24 12:20 Pulse 63 07/06/24 12:20 Resp 17 07/06/24 12:20 BP 143/71 H 07/06/24 12:20 Pulse Ox 96 07/06/24 12:20 O2 Del Method Room Air 07/06/24 12:20 BMI result Body Mass Index 22.9 Const: Other: Alert Orientation/consciousness: patient oriented x3 Resp: Effort & Inspection: normal respiratory effort Cardio: Other: Normal peripheral perfusion GI: Other: Abdomen is soft, nondistended nontender no guarding Skin: Other: Warm dry no rash Neuro: Other: Antalgic gait walking without assistance with a his cane General: patient oriented x3, no focal motor deficits and CN's II-XI intact bilaterally Psych: Other: Cooperative Medications Administered Discontinued Medications Generic Name Dose Route Start Last Admin Trade Name Freq PRN Reason Stop Dose Admin Sodium Chloride 1,000 mls @ 999 mls/hr 07/06/24 13:15 07/06/24 15:49 Ns IV 07/06/24 14:15 Infused .Q1H1M ELISABET Infusion Medical Decision Making Medical Decision Making MDM Narrative: 73-year-old male with a history of opioid use disorder, bipolar, presents from home with weakness. Per EMS, patient was seen by [facility] within the home as a follow up from a recent psychiatric consultation. Patient's son is supposed to be his primary caregiver, staff members who were on scene were unable to get a hold of him. EMS reports that the apartment was unkempt. The patient has had weakness and poor appetite over the past 4 days. Patient states he ambulates with a cane and walker at home. Denies nausea vomiting diarrhea. Denies chest pain, shortness of breath or fever. Problem: Psychiatric illness substance abuse History: Per patient and EMS I have considered the following differential diagnoses: Viral syndrome, failure to thrive, electrolyte abnormality, dehydration, anemia, decompensated psychiatric illness Plan: Screening labs including a viral panel we will be obtained as medical clearance. The patient does not have any specific symptoms. The patient will likely be held for case management and physical therapy, it sounds as if he is not being cared for appropriately within the home. We need to gather collateral information. I have independently reviewed the following tests: Labs: No leukocytosis, not anemic, no electrolyte abnormality, and flu A + Lab Data 07/06/24 13:17 07/06/24 13:17 Labs: Lab Results 07/06/24 Range/Units 13:17 WBC 10.3 (4.8-10.8) X10*3/uL RBC 4.14 L (4.60-5.80) X10*6/uL Hgb 11.5 L (14.0-18.0) g/dl Hct 35.4 L (42.0-52.0) % MCV 85.5 (80.0-98.0) fL MCH 27.8 (27.0-33.0) pg MCHC 32.5 (31.0-36.0) g/dl RDW 15.6 (11.0-16.0) % Plt Count 324 D (160-400) X10*3/uL MPV 10.0 (9.4-12.4) fL Immature Gran % (Auto) 0.7 H (0.0-0.4) % Neut % (Auto) 61.5 (45-73) % Lymph % (Auto) 28.6 (20-40) % [place] % (Auto) 8.3 (2-11) % Eos % (Auto) 0.5 (0-4) % Baso % (Auto) 0.4 (0-2) % Lymph # (Auto) 3.0 (1.2-4.9) X10*3/uL [place] # (Auto) 0.9 (0.1-1.2) X10*3/uL Eos # (Auto) 0.1 (0.0-0.4) X10*3/uL Baso # (Auto) 0.0 (0.0-0.2) X10*3/uL Abs Immat Gran (auto) 0.07 H (0.00-0.03) X10*3/uL Absolute Neuts (auto) 6.3 (2.0-8.3) x10*3/uL Absolute Nucleated RBC 0.000 (0.0-0.012) X10*3/uL Nucleated RBC % (auto) 0.0 (0.0-0.2) /100WBC Sodium 136 (135-145) mmol/L Potassium 4.0 (3.3-5.1) mmol/L Chloride 104 (96-108) mmol/L Carbon Dioxide 24 (22-29) mmol/L Anion Gap 12 (12-20) BUN 19 H (9-16) mg/dL Creatinine 0.75 (0.5-1.4) mg/dL Estim Creat Clear Calc 76.3 Estimated GFR > 60 Random Glucose 97 (60-115) mg/dL Calcium 9.5 (8.4-10.2) mg/dL Magnesium 1.9 (1.6-2.6) mg/dL Total Bilirubin 0.4 (0.0-1.0) mg/dL AST 25 (5-37) U/L ALT 11 (0-40) U/L Alkaline Phosphatase 66 (39-117) U/L Total Protein 9.1 H (6.5-8.0) g/dL Albumin 3.7 (3.5-5.0) g/dL Influenza Type A (PCR) POSITIVE A (Negative) Influenza Type B (PCR) NEGATIVE (Negative) RSV RNA Qual (PCR) NEGATIVE (Negative) SARS-CoV-2 RNA (RT-PCR) NEGATIVE (Negative) Discharge Plan Discharge Clinical Impression: Influenza A, Weakness Patient Disposition: Still a Patient Prescriptions: No Action magnesium oxide 420 mg Tablet 420 mg PO DAILY 30 Days Qty: 30 0RF acetaminophen 500 mg Tablet 1,000 mg PO TID PRN (Reason: Pain, Mild) 30 Days Qty: 60 0RF cyclobenzaprine 5 mg Tablet 5 mg PO BID PRN (Reason: Muscle Spasm) 30 Days Qty: 60 0RF calcium carbonate-vitamin D3 500 mg-3.125 mcg (125 unit) Tablet 1 tab PO BID 30 Days Qty: 60 0RF melatonin 5 mg Tablet 5 mg PO BEDTIME PRN (Reason: Sleep) 30 Days Qty: 30 0RF buprenorphine-naloxone 8-2 mg film 1 film sublingual TID Sublocade 300 mg/1.5 mL solution, extended rel syringe 300 mg subcut ONCE meloxicam 15 mg Tablet 7.5 mg PO DAILY cyanocobalamin (vitamin B-12) 1,000 mcg Tablet 1,000 mcg PO DAILY amitriptyline 10 mg Tablet 20 mg PO BEDTIME gabapentin 300 mg Capsule 900 mg PO BID@0800,1200 gabapentin 300 mg Capsule 1,200 mg PO BEDTIME Multivitamin 50 Plus Tablet 1 tab PO DAILY divalproex 250 mg tablet extended release 24 hr 1,250 mg PO BEDTIME memantine 5 mg Tablet 5 mg PO DAILY vitamin E (dl, acetate) 45 mg (100 unit) Capsule 45 mg PO DAILY quetiapine [Seroquel] 50 mg Tablet 150 mg PO BEDTIME cholecalciferol (vitamin D3) [Vitamin D3] 50 mcg (2,000 unit) Tablet 50 mcg PO DAILY sennosides-docusate sodium [Senna Plus] 8.6-50 mg tablet 2 tab PO BEDTIME PRN (Reason: Constipation) amoxicillin-pot clavulanate 875-125 mg tablet 1 tab PO BID Qty: 20 0RF naloxone [Narcan] 4 mg/actuation spray,non-aerosol 4 mg intranasal Q2M MDD 2 PRN (Reason: opioid overdose) Qty: 2 0RF Rx Instructions: spray 1 dose into ONE nostril; alternate nostrils w each dose until help arrives famotidine 20 mg tablet 20 mg PO DAILY@0630 alendronate 70 mg tablet 70 mg PO MO@0900 Print Language: South Korean
--- NOTE | 2024-07-06 17:52 | MHC.CM.ED ---
Addendum entered by Marcie Miller 07/06/24 18:26: Discussed telephone concerns with provider. CM also has concerns regarding [facility] home visit and their concerns. Requested CARE team consult. Will continue to follow. Pt not safe to return home at this time. Unable to verify home situation. Will speak with CARE team and consider filing with [facility] Addendum entered by Marcie Alize Courtney Miller 07/06/24 18:22: Review of old record has no other family contact information listed. Original Note: CM received consult from Ana CERON. Pt is A&O x3, but is a poor historian. shooter's helper used at patient request, however he spoke in [place]inean the entire interview. Pt tells CM that he has not felt well, not eating for several days. States his son, Fran lives with him. Son cooks, cleans and helps him with personal care. Denies services at home. Uses a walker and cane.CM questioned patient as to report of people in the home ([facility]N); Patient states they were there to get him more help at home. Per medical record, [facility] was there on a follow up psych assessment. Pt has hx bipolar disorder. Has been [facility] in 2021 and 2022. Pt has hx opioid use disorder. EMS reports that home was very unkempt. Pt does not appear to be unkempt. Clothes appear clean. Pt has multiple telephone numbers on his medical record. Only able to leave a message on Fran's number [phone]. CM is somewhat confused regarding that number, as the patient left the message on the recording. CM spoke with patient again, and he tells CM that is his son's number.CM called phone number. Patient's cell phone is ringing. Pt does not understand that the number he says is his son's, is his phone. CM asked if the phone was his son's. Pt states it's his phone. CM reviewed old record. No further contact information. Will speak with provider and request CARE team, as patient was seen in the community by [facility]. CM will continue to follow
--- NOTE | 2024-07-06 19:24 | MHC.CARE ---
Per ED Provider Edna Richardson, Pt does not require a LOC evaluation from the CARE Team at this time-- she asks for assistance with collateral information. CARE Team contacted [facility] who reports no prior contact with this Pt and does not have outpatient providers through them. [facility] reports that they last had contact with Pt 05/09/24 as Pt discharged from a substance treatment program through their agency, however he does not have outpatient providers through them and their has been no further contact. Attempted to call Pt's son Mahendra using a number indicated on an old assessment ([phone]) as well as the one updated in the chart; there was no answer. Attempted to call Pt's other son Fran with the number indicated in Pt's chart; no answer. Per Pt's last discharge summary from [facility] on 11/19/22, Pt was to follow up with outpatient providers through [facility] in [place], [place] ([phone]). This number was called, however T/W was unable to reach anyone. Pt was also referred to [facility] in [place], [place] ([phone]); This number was called and T/W was unable to reach anyone. It is unclear at this time if Pt is still engaged with these services and providers.
[2024-07-06 19:39] VITALS: BP 158/84; PULSE 76; RESP 16; TEMP 36.8; O2SAT 95
--- NOTE | 2024-07-06 20:04 | PHA.MEDREC ---
Pharmacy Consult ? Medication Reconciliation Pharmacy has completed the medication reconciliation.
--- NOTE | 2024-07-06 20:28 | MHC.CM.ED ---
Addendum entered by Marcie Miller 07/06/24 21:11: CM filed with SS for self-neglect Intake number [id number]. Original Note: CM appreciates CARE team input. CM also made all of these calls. CM cannot find any contact information for sonFran. Information listed is patient's cell phone, which he has with him. Pt continues to tell CM that that [phone] is his son's, even though his phone is ringing. CM is unsure who was at the patient's home today and CARE team was unable to verify who was at his home today. Pt does not know. Poor historian. Pt is staying overnight for PT evaluation. CM will file with SS
[2024-07-06 22:19] VITALS: BP 120/72; PULSE 72; RESP 12; TEMP 36.9; O2SAT 92
[2024-07-07] VITALS (8 sets, daily range): BP systolic 99–126; BP diastolic 55–77; PULSE 63–75; RESP 14–18; TEMP 36.4–36.9; O2SAT 93–97
--- NOTE | 2024-07-07 07:55 | PC.NURSE ---
physical therapy at bedside
[2024-07-07] MEDS: Calcium + Vitamin D 250 MG TABLET PO (08:50)
[2024-07-07] MEDS: Magnesium Oxide 400 MG TABLET PO (08:51)
[2024-07-07] MEDS: Multivitamin TABLET 1 TAB PO (08:51)
[2024-07-07] MEDS: Cholecalciferol (Vitamin D3) 25 MCG TABLET 50 MCG PO (08:51)
[2024-07-07] MEDS: Cyanocobalamin (Vitamin B-12) 1,000 MCG TABLET 1000 MCG PO (08:51)
--- NOTE | 2024-07-07 09:24 | MHC.CM.ED ---
Addendum entered by Josey Cox 07/07/24 13:02: No acute rehab beds offered at this time. [facility]. Attempted to contact Mahendra at [phone] (no answer) and [phone] (left voicemail). No telephone number available for Baltazar. Original Note: Patient remains in ER. Physical therapy eval completed. Rehab is recommended. Patient is positive for Flu A. Spoke with Kathy at [facility]. Patient is not eligible for STR through [facility]. Patient has Medicare: [id number]. Has not been inpatient in any facility in the past 30 days. Patient only has [facility]. Referral will be sent to all 3 acute rehab facilities to see if any beds are available. Continue to monitor for d/c needs.
[2024-07-07] MEDS: NaPROXEN 250 MG TABLET PO ×2 (10:27→21:37)
[2024-07-07] MEDS: Gabapentin 300 MG CAPSULE 900 MG PO (12:47)
--- NOTE | 2024-07-07 17:33 | MHC.CM.ED ---
Primary RN received telephone call from Ofelia MONTEJO at the [facility], requesting CM/social work telephone number for her social psychologist. They have some information regarding this patient. CM contact telephone number given. Awaiting call. Psych for capacity ordered.
[2024-07-07] MEDS: QUEtiapine Fumarate 100 MG TABLET PO (21:04)
[2024-07-07] MEDS: Divalproex Sodium ER 250 MG TAB.ER.24H 1250 MG PO (21:04)
[2024-07-07] MEDS: Gabapentin 400 MG CAPSULE 1200 MG PO (21:04)
[2024-07-07] MEDS: Amitriptyline HCl 10 MG TABLET 20 MG PO (21:37)
[2024-07-08] MEDS: Famotidine 20 MG TABLET PO (06:10)
[2024-07-08 06:12] VITALS: BP 108/56; PULSE 64; RESP 16; TEMP 36.6; O2SAT 97
--- NOTE | 2024-07-08 09:21 | MHC.CM.ED ---
Patient remains in ER. Copy of HCP obtained from [facility]. Numbers listed on HCP are telephone numbers already on record with [facility]. Waiting for call from [facility] social work instructor to obtain more info. Continue to monitor for d/c needs.
[2024-07-08] MEDS: NaPROXEN 250 MG TABLET PO ×2 (09:30→20:55)
[2024-07-08] MEDS: Calcium + Vitamin D 250 MG TABLET PO (09:31)
[2024-07-08] MEDS: Multivitamin TABLET 1 TAB PO (09:31)
[2024-07-08] MEDS: Magnesium Oxide 400 MG TABLET PO (09:31)
[2024-07-08] MEDS: Cyanocobalamin (Vitamin B-12) 1,000 MCG TABLET 1000 MCG PO (09:31)
[2024-07-08] MEDS: Cholecalciferol (Vitamin D3) 25 MCG TABLET 50 MCG PO (09:31)
[2024-07-08] MEDS: Gabapentin 300 MG CAPSULE 900 MG PO ×2 (09:31→12:30)
--- NOTE | 2024-07-08 10:38 | PC.NURSE ---
report given to NIKIA Cruz in overflow at this time.
[2024-07-08 10:51] LABS: Appearance Urine Clear; Color Urine Yellow; Glucose Urine UA Negative (Negative); Leukocyte Esterase Urine Negative (Negative); Nitrite Urine Negative (Negative); PH 6.5 (5.0-9.0); Urine Blood Negative (Negative); Urine Ketones Negative (Negative); Urine Protein Negative (Neg-Trace)
[2024-07-08 12:28] VITALS: BP 143/72; PULSE 70; RESP 20; TEMP 36.2; O2SAT 94
--- NOTE | 2024-07-08 12:30 | PC.NURSE ---
assumed care of patient at 1220 in overflow, patient ambulated with standby assist with walker into hospital bed. patient sitting up and eating lunch tray, resp even and unlabored, patient is awake and alert. VSS. patient medicated per MAR takes meds whole with water. no noted skin issues
--- NOTE | 2024-07-08 13:46 | PC.NURSE ---
patient resting quietly in bed after lunch, resp even and unlabored.
[2024-07-08 14:00] VITALS: BP 103/61; PULSE 63; RESP 18; TEMP 36.1; O2SAT 92
--- NOTE | 2024-07-08 17:58 | PC.NURSE ---
patient sat up and ate dinner, resp even and unlabored. patient shows no acute signs of distress, makes needs known appropriately
[2024-07-08] MEDS: Amitriptyline HCl 10 MG TABLET 20 MG PO (20:56)
[2024-07-08] MEDS: Gabapentin 400 MG CAPSULE 1200 MG PO (20:56)
[2024-07-08] MEDS: QUEtiapine Fumarate 100 MG TABLET PO (20:56)
[2024-07-08] MEDS: Divalproex Sodium ER 250 MG TAB.ER.24H 1250 MG PO (20:56)
[2024-07-09 00:35] VITALS: BP 113/61; PULSE 66; RESP 18; TEMP 36.8
--- NOTE | 2024-07-09 01:08 | PC.NURSE ---
Assumed care of patient at 1900. Medications at bed time administered as per JUL. Patient sleeping at present . Bed alarm on for safety.
[2024-07-09] MEDS: Famotidine 20 MG TABLET PO (06:20)
[2024-07-09 08:42] VITALS: BP 128/66; PULSE 57; RESP 16; TEMP 36.2; O2SAT 93
[2024-07-09] MEDS: Calcium + Vitamin D 250 MG TABLET PO (09:46)
[2024-07-09] MEDS: Gabapentin 300 MG CAPSULE 900 MG PO ×2 (09:46→11:41)
[2024-07-09] MEDS: Cyanocobalamin (Vitamin B-12) 1,000 MCG TABLET 1000 MCG PO (09:46)
[2024-07-09] MEDS: Multivitamin TABLET 1 TAB PO (09:46)
[2024-07-09] MEDS: Magnesium Oxide 400 MG TABLET PO (09:46)
[2024-07-09] MEDS: Cholecalciferol (Vitamin D3) 25 MCG TABLET 50 MCG PO (09:46)
[2024-07-09] MEDS: NaPROXEN 250 MG TABLET PO ×2 (09:49→21:19)
--- NOTE | 2024-07-09 11:37 | MHC.EDTECH ---
pt was given personal hygiene and stated he can do it by himself with standby by assistance if needed
--- NOTE | 2024-07-09 13:05 | MHC.EDTECH ---
pt ate 50% of his lunch
[2024-07-09 14:00] VITALS: BP 103/65; PULSE 64; RESP 18; TEMP 36.2; O2SAT 96
--- NOTE | 2024-07-09 14:00 | MHC.CLN ---
pt was standby assistance to the [facility]
--- NOTE | 2024-07-09 19:26 | PC.NURSE ---
assumed care of patient, patient requested cranberry juice and lights dimmed, calm and cooperative bed locked in lowest position call haney within reach bed alarm on
--- NOTE | 2024-07-09 19:42 | PC.NURSE ---
reached out to ED provider for updated code status. no new orders at this time
[2024-07-09 20:34] VITALS: BP 123/67; PULSE 70; RESP 14; TEMP 36.5; O2SAT 94
[2024-07-09] MEDS: Amitriptyline HCl 10 MG TABLET 20 MG PO (21:18)
[2024-07-09] MEDS: Divalproex Sodium ER 250 MG TAB.ER.24H 1250 MG PO (21:19)
[2024-07-09] MEDS: QUEtiapine Fumarate 100 MG TABLET PO (21:19)
[2024-07-09] MEDS: Gabapentin 400 MG CAPSULE 1200 MG PO (21:45)
--- NOTE | 2024-07-10 00:15 | MHC.EDTECH ---
This tech took over care of pt at 2330,rounds completed,pt is sleeping resp, rate WNL,bed alarm on for safety
[2024-07-10] MEDS: Famotidine 20 MG TABLET PO (06:06)
[2024-07-10 06:09] VITALS: BP 122/58; PULSE 60; RESP 16; TEMP 36.7; O2SAT 95
[2024-07-10] MEDS: Cholecalciferol (Vitamin D3) 25 MCG TABLET 50 MCG PO (09:12)
[2024-07-10] MEDS: Cyanocobalamin (Vitamin B-12) 1,000 MCG TABLET 1000 MCG PO (09:12)
[2024-07-10] MEDS: Multivitamin TABLET 1 TAB PO (09:12)
[2024-07-10] MEDS: Gabapentin 300 MG CAPSULE 900 MG PO ×2 (09:12→12:28)
[2024-07-10] MEDS: Magnesium Oxide 400 MG TABLET PO (09:12)
[2024-07-10] MEDS: NaPROXEN 250 MG TABLET PO ×2 (09:13→22:03)
[2024-07-10] MEDS: Calcium + Vitamin D 250 MG TABLET PO (09:13)
--- NOTE | 2024-07-10 12:01 | PC.NURSE ---
Assumed care of this patient at 1100, patient resting quietly in bed at this time, code status updated by provider, no issues noted at this time.
[2024-07-10 13:42] VITALS: BP 125/74; PULSE 68; RESP 20; TEMP 36.1; O2SAT 95
--- NOTE | 2024-07-10 21:32 | PC.NURSE ---
Patient requested to charge his phone, patient's phone brought to ED.
[2024-07-10] MEDS: Gabapentin 400 MG CAPSULE 1200 MG PO (22:02)
[2024-07-10] MEDS: Amitriptyline HCl 10 MG TABLET 20 MG PO (22:02)
[2024-07-10] MEDS: QUEtiapine Fumarate 100 MG TABLET PO (22:03)
[2024-07-10] MEDS: Divalproex Sodium ER 250 MG TAB.ER.24H 1250 MG PO (22:03)
[2024-07-10 22:16] VITALS: BP 146/79; PULSE 71; RESP 16; TEMP 36.3; O2SAT 96
--- NOTE | 2024-07-11 03:36 | PC.NURSE ---
Patient's phone brought back from ED and given to patient. Patient offers no complaints at present, resting in a hospital bed, respirations are even and unlabored, call haney in patient's reach.
[2024-07-11 05:18] VITALS: BP 125/74; PULSE 65; RESP 16; TEMP 36.6; O2SAT 96
[2024-07-11] MEDS: Famotidine 20 MG TABLET PO (05:44)
[2024-07-11] MEDS: NaPROXEN 250 MG TABLET PO ×2 (10:07→21:21)
[2024-07-11] MEDS: Calcium + Vitamin D 250 MG TABLET PO (10:07)
[2024-07-11] MEDS: Magnesium Oxide 400 MG TABLET PO (10:07)
[2024-07-11] MEDS: Cyanocobalamin (Vitamin B-12) 1,000 MCG TABLET 1000 MCG PO (10:08)
[2024-07-11] MEDS: Cholecalciferol (Vitamin D3) 25 MCG TABLET 50 MCG PO (10:08)
[2024-07-11] MEDS: Multivitamin TABLET 1 TAB PO (10:08)
[2024-07-11] MEDS: Gabapentin 300 MG CAPSULE 900 MG PO ×2 (10:10→11:38)
--- NOTE | 2024-07-11 10:33 | MHC.CM.ED ---
Patient remains in ER overflow. CM has not received any communication from patient's family. Psych consult ordered for capacity eval on 07/07. Still pending. Continue to monitor for d/c needs.
--- NOTE | 2024-07-11 10:59 | PC.NURSE ---
Pt alert, breathing even and unlabored. Ambulated to bathroom with cane and 1 assist with no issues. Able to use bathroom and freshen up. No acute distress
--- NOTE | 2024-07-11 11:16 | PC.NURSE ---
Bed linens changed.
--- NOTE | 2024-07-11 12:49 | PC.NURSE ---
Baltazar Pascal (pts son): [phone]
--- NOTE | 2024-07-11 12:57 | MHC.CM.ED ---
Received notification from Kristine MONTEJO that patient's son, Baltazar, is bedside. Met with Baltazar. Baltazar aware psych consult is pending for capacity. Baltazar believes his father has the beginning of dementia. Baltazar also feels he can safely take care of his father. [place] social media assistant was with the patient when EMS was activated. Baltazar verified his telephone number is [phone]. Continue to monitor for d/c needs.
[2024-07-11 14:00] VITALS: BP 115/61; PULSE 78; RESP 14; TEMP 36.4; O2SAT 98
--- NOTE | 2024-07-11 17:51 | P.CNPS_ITS ---
History of Present Illness Date of Service: 07/11/2024 Chief Complaint: R ABD PAIN X4D PER EMS Discussed with referring provider: Yes Sources of Information: patient interviewed, chart reviewed and crisis/core team assessment reviewed HPI Narrative: is a 73 year-old male with hx of opioid use disorder, Bipolar Disorder who was brought via EMS due to weakness. Psychiatry was asked to do capacity assessment as there were concerns in terms of state of his apartment. Utox was positive for fentanyl and opioids. Note that it was negative for suboxone, which he is prescribed. Pt is known to this screenplay writer through previous inpatient psychiatric admission for depression and OD on heroin back in 10/2022. Pt is oriented to place, situation, month and year. He reports he was brought via EMS after SW came to his house because they were concern about weakness and shortness of breath. He reports he lives in an apartment. He is able to tell this screenplay writer some of the medications he is on, mostly for mood disorder. In terms of his psychiatric presentation, he does not present with signs of psychosis or delusional content noted or reported. No SI/HI. No s/s of rosalino or hypomania. He does denied use of substance use recently when asked by this screenplay writer, stating he has been sober for several years, when his utox tells otherwise. Past Psychiatric History: The patient has several psychiatric admissions, he was diagnosed with bipolar disorder in his 40s, he has at least 6 prior psychiatric admissions last admission at [facility] 2020. Inpt on M3 10/2022 for depression and intentional Od on heroin while in public transportation. He follows treatment and the [facility] as an outpatient- Dr. Torre [phone] Medical Evaluation Reviewed: Yes [facility] Medical History (Updated 07/11/24 @ 18:02 by Dulce Ivy NP) Opioid use disorder, severe, on maintenance therapy Family History: Denies Social History: The patient is born and raised in [place], he served in the [place] and according to him he has 4 adult children. 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[employer], good social support Trauma History: Denies Diagnostics Vital Signs (24Hr): Vital Signs - 24 hr 07/10/24 22:16 07/11/24 05:18 07/11/24 14:00 Temperature 97.4 F 98 F 97.5 F Pulse Rate 71 65 78 Respiratory Rate 16 16 14 Blood Pressure 146/79 H 125/74 115/61 Pulse Oximetry 96 96 98 Oxygen Delivery Method Room Air Room Air Room Air BMI result Body Mass Index 22.9 Labs 07/06/24 13:17 07/06/24 13:17 Labs: Laboratory Results - last 48 hr 07/08/24 10:41 Urine Color Yellow Urine Appearance Clear Urine pH 6.5 Ur Specific [place] 1.010 Urine Protein Negative Urine Glucose (UA) Negative Urine Ketones Negative Urine Blood Negative Urine Nitrite Negative Ur Leukocyte Esterase Negative Mental Status Exam Mental Status Exam Narrative: Appearance: wearing hospital gown, fair hygiene, in NAD Behavior: cooperative Psychomotor: no agitation or retardation noted. Speech: clear, normal rate/rhythm/volume, spontaneous TP: linear TC: wanting to go home Mood: good Affect: congruent SI: none HI: none Delusions: none VH/AH: none Insight/judgment: poor x 2. Memory/cog: alert, oriented x 4. pending MOCA/ACL. Medications Medications Current Medications Amitriptyline HCl (Amitriptyline Hcl 10 Mg Tablet) 20 mg PO BEDTIME [facility] Last Admin: 07/10/24 22:02 Dose: 20 mg Calcium Carbonate/Cholecalciferol (Calcium + Vitamin D 250 Mg Tablet) 250 mg PO DAILY [facility] Last Admin: 07/11/24 10:07 Dose: 250 mg Cyanocobalamin (Cyanocobalamin (Vitamin B-12) 1,000 Mcg Tablet) 1,000 mcg PO DAILY [facility] Last Admin: 07/11/24 10:08 Dose: 1,000 mcg Divalproex Sodium (Divalproex Sodium Er 250 Mg Tab.Er.24h) 1,250 mg PO BEDTIME [facility] Last Admin: 07/10/24 22:03 Dose: 1,250 mg Famotidine (Famotidine 20 Mg Tablet) 20 mg PO DAILY@0630 [facility] Last Admin: 07/11/24 05:44 Dose: 20 mg Gabapentin (Gabapentin 300 Mg Capsule) 900 mg PO BID@0800,1200 [facility] Last Admin: 07/11/24 11:38 Dose: 900 mg Gabapentin (Gabapentin 400 Mg Capsule) 1,200 mg PO BEDTIME [facility] Last Admin: 07/10/24 22:02 Dose: 1,200 mg Magnesium Oxide (Magnesium Oxide 400 Mg Tablet) 400 mg PO DAILY [facility] Last Admin: 07/11/24 10:07 Dose: 400 mg Melatonin (Melatonin 3 Mg Tablet) 6 mg PO BEDTIME PRN PRN Reason: Sleep Multivitamins/Vitamin C (Multivitamin Tablet) 1 tab PO DAILY [facility] Last Admin: 07/11/24 10:08 Dose: 1 tab Naproxen (Naproxen 250 Mg Tablet) 250 mg PO BID [facility] Last Admin: 07/11/24 10:07 Dose: 250 mg Quetiapine Fumarate (Quetiapine Fumarate 100 Mg Tablet) 100 mg PO BEDTIME [facility] Last Admin: 07/10/24 22:03 Dose: 100 mg Senna/Docusate Sodium (Sennosides/Docusate Sodium Tablet) 2 tab PO BEDTIME PRN PRN Reason: Constipation Vitamin D (Cholecalciferol (Vitamin D3) 25 Mcg Tablet) 50 mcg PO DAILY [facility] Last Admin: 07/11/24 10:08 Dose: 50 mcg Allergies Allergies Allergy/AdvReac Type Severity Reaction Status Date / Time No Known Allergies Allergy Verified 07/06/24 11:10 [No Known Allergies*] Assessment & Plan Assessment & Plan (1) Encounter for assessment of decision-making capacity: Status: Acute Code(s): Z00.8 - Encounter for other general examination (2) Cognitive impairment: Status: Acute Code(s): R41.89 - Other symptoms and signs involving cognitive functions and awareness Plan Mr. Pascal is a 73 year-old male with hx of of Bipolar Disorder and opioid use disorder. He was brought via EMS after he met at his apartment with SW and concern for weakness and SOB. He was positive for influenza. Utox positive for opioids, fentanyl. Not for suboxone, although he is prescribed. He denies recent use of heroin or fentanyl but utox does not support this statement. Superficially, pt is able to tell this screenplay writer reason for being in the hospital. He shows enough understanding related to his medical conditions. He is fully oriented. He does show capacity to make medical decisions. I would recommend MOCA completed OP. His substance use also affects his ability to function. Total time managing care of this patient today ____ minutes.
--- NOTE | 2024-07-11 20:34 | MHC.EDTECH ---
pt voided 300ml
[2024-07-11 21:18] VITALS: BP 150/66; PULSE 62; RESP 18; TEMP 36.9; O2SAT 96
[2024-07-11] MEDS: QUEtiapine Fumarate 100 MG TABLET PO (21:21)
[2024-07-11] MEDS: Acetaminophen 325 MG TABLET 975 MG PO (21:21)
[2024-07-11] MEDS: Amitriptyline HCl 10 MG TABLET 20 MG PO (21:21)
[2024-07-11] MEDS: Divalproex Sodium ER 250 MG TAB.ER.24H 1250 MG PO (21:21)
[2024-07-11] MEDS: Gabapentin 400 MG CAPSULE 1200 MG PO (21:34)
[2024-07-12 05:34] VITALS: BP 145/71; PULSE 64; RESP 16; TEMP 36.6; O2SAT 96
[2024-07-12] MEDS: Famotidine 20 MG TABLET PO (05:36)
[2024-07-12] MEDS: Cholecalciferol (Vitamin D3) 25 MCG TABLET 50 MCG PO (08:37)
[2024-07-12] MEDS: Cyanocobalamin (Vitamin B-12) 1,000 MCG TABLET 1000 MCG PO (08:38)
[2024-07-12] MEDS: Gabapentin 300 MG CAPSULE 900 MG PO (08:38)
[2024-07-12] MEDS: Multivitamin TABLET 1 TAB PO (08:38)
[2024-07-12] MEDS: Magnesium Oxide 400 MG TABLET PO (08:39)
[2024-07-12] MEDS: Calcium + Vitamin D 250 MG TABLET PO (09:39)
[2024-07-12] MEDS: NaPROXEN 250 MG TABLET PO (09:39)
--- NOTE | 2024-07-12 09:41 | PC.NURSE ---
OT in roiom with patient for eval.
--- NOTE | 2024-07-12 10:25 | MHC.CM.ED ---
Patient remains in ER overflow. Per Dulce, machine filler, patient has capacity but some s/s of early dementia. Outpatient follow up is recommended. Spoke with patient's son, Baltazar, via telephone at [phone], patient can safely return home. However Baltazar is unable to transport patient home. Ayaka OSMAN booked for 12pm. Med [facility] with chart. Patient, Evelia MONTEJO and Amelia CERON aware. Continue to monitor for d/c needs.
--- NOTE | 2024-07-12 11:03 | PC.NURSE ---
Pt aware of plan to d/c to home with BLS transport. Was able to dress w/o assist. steady on feet with walker use.
[2024-07-12 11:36] VITALS: BP 127/80; PULSE 85; RESP 16; TEMP 37; O2SAT 98
== END 2024-07-12 11:38 | disposition home or self-care (01) ==
PROVIDERS: Physician Assistant Medical; Emergency Provider Emergency Medicine
DX: J10.1 Influenza due to other identified influenza virus with other respiratory manifestations (principal); R53.1 Weakness; G31.84 Mild cognitive impairment of uncertain or unknown etiology; F31.9 Bipolar disorder, unspecified; R63.0 Anorexia; Z68.22 Body mass index [BMI] 22.0-22.9, adult
CPT/HCPCS: 0241U; 36415; 80053; 81003; 83735; 85025; 96360; 96361; 97162; 97165; 99285

== ENCOUNTER → 2024-07-06 11:25 | Outpatient (BNV) | payer OTHER, SELFPAY | PROVIDERS: Emergency Provider Emergency Medicine; Visit Provider Social Worker | DX: F31.9 Bipolar disorder, unspecified (principal); R41.89 Other symptoms and signs involving cognitive functions and awareness | CPT/HCPCS: 99222 ==

== ENCOUNTER 2024-11-30 22:57 | Inpatient (IN) | payer MEDICARE, SELFPAY ==
--- NOTE | ~2024-11-30 | XR_ITS ---
CLINICAL HISTORY: CPR eval for trauma 1 view chest x-ray Comparison: CR/NC/SR - XR CHEST 1V - 02/26/24 20:34 EDT Findings: Senescent changes in the lungs. No focal infiltrate. No pneumothorax. No pleural effusion. Normal size heart. Tortuous aorta. No acute fracture identified. There is gaseous distention of the stomach. IMPRESSION: 1. No acute findings. This document has been electronically signed by: Natalio Trevizo MD on 12/01/2024 01:12:41
--- NOTE | 2024-11-30 23:06 | ECG_ITS ---
Test Reason : OVERDOSE Blood Pressure : */* mmHG Vent. Rate : 84 BPM Atrial Rate : 84 BPM P-R Int : 168 ms QRS Dur : 74 ms QT Int : 382 ms P-R-T Axes : 68 20 12 degrees QTcB Int : 451 ms Normal sinus rhythm Normal ECG When compared with ECG of 26-Feb-2024 15:49, Nonspecific T wave abnormality now evident in Inferior leads Referred By: Cristel Briceño Electronically Signed By: LINCOLN RICHMOND MD
[2024-11-30 23:07] VITALS: BP 121/67; BP 130/84; PULSE 78; PULSE 82; RESP 14; TEMP 36.6; O2SAT 97; BMI 25.3
--- NOTE | 2024-11-30 23:23 | ED.OVERDOSE ---
HPI - Overdose General Chief Complaint: Overdose Stated Complaint: OD, CPR GIVEN PER EMS Source: patient, EMS and old records reviewed Mode of arrival: EMS Limitations: no limitations History of Present Illness ED Provider: MAYCO HPI Narrative: 74 yo male with PMH of cognitive impairment, opiate use disorder, bipolar disorder, depression, GERD who reports he got a bag of fentanyl off the street and sniffed it at 9pm in suicide attempt. He states he only used one bag. He denies any other ingestions. He was found by his family and they noted he wasn't breathing but no reports of lost pulse so they did CPR and administered 12mg of narcan. When EMS arrived he was groggy but waking up. He was alert and oriented x 3 on arrival to the ED. He has no pain, denies sternal pain, no head trauma. He states he had a great day other than his attempt. MD complaint: intentional overdose Onset (ago): hour(s) (9pm) Intent: suicide attempt How Overdose Was Discovered: other (family found him) Context: Intentional Overdose: other Associated symptoms: depression Treatments Prior to Arrival: narcan (12mg) Related Data Home Medications ?Medication ?Instructions ?Recorded ?Confirmed alendronate 70 mg tablet 70 mg PO MO@0900 11/18/22 12/01/24 famotidine 20 mg tablet 20 mg PO DAILY@0630 11/18/22 12/01/24 amitriptyline 10 mg tablet 20 mg PO BEDTIME 02/26/24 12/01/24 cholecalciferol (vitamin D3) 50 50 mcg PO DAILY 02/26/24 12/01/24 mcg (2,000 unit) tablet (Vitamin D3) cyanocobalamin (vitamin B-12) 1,000 mcg PO DAILY 02/26/24 12/01/24 1,000 mcg tablet divalproex 250 mg tablet,extended 1,250 mg PO BEDTIME 02/26/24 12/01/24 release 24 hr gabapentin 300 mg capsule 1,200 mg PO BEDTIME 02/26/24 12/01/24 gabapentin 300 mg capsule 900 mg PO BID@0800,1200 02/26/24 12/01/24 meloxicam 15 mg tablet 7.5 mg PO DAILY 02/26/24 12/01/24 sennosides 8.6 mg-docusate sodium 2 tab PO BEDTIME PRN Constipation 02/26/24 12/01/24 50 mg tablet (Senna Plus) vitamin E (dl, acetate) 45 mg (100 45 mg PO DAILY 02/26/24 12/01/24 unit) capsule quetiapine 100 mg tablet (Seroquel) 100 mg PO BEDTIME 07/06/24 12/01/24 memantine 5 mg tablet 5 mg PO BID 12/01/24 12/01/24 Previous Rx's ?Medication ?Instructions ?Recorded calcium 500 mg (as 1 tab PO BID 30 days #60 tabs 01/22/22 carbonate)-vitamin D3 3.125 mcg (125 unit) tablet magnesium oxide 420 mg tablet 420 mg PO DAILY 30 days #30 tabs 01/22/22 melatonin 5 mg tablet 5 mg PO BEDTIME PRN Sleep 30 days 01/22/22 #30 tabs Allergies Allergy/AdvReac Type Severity Reaction Status Date / Time No Known Allergies (No Known Allergy Verified 11/30/24 23:09 Allergies*) Review of Systems Review of Systems: Constitutional : No Fever, No Chills ENT/Mouth : No Ear Pain, No Nasal Congestion, No sore throat Eyes: No Eye Pain, No Swelling, No Redness Cardiovascular : No Chest Pain, No SOB Respiratory : No Cough, No Sputum, No Dyspnea Gastrointestinal : No Nausea, No Vomiting, No Diarrhea, No Hematochezia, No Melena Genitourinary : No Dysuria, No Urinary Frequency, No Hematuria Musculoskeletal : No Myalgias Skin : No Skin Lesions, No rash Neuro : No Weakness, No Numbness, No Paresthesias, No Dizziness, No Headache Psych : positive Anxiety, positive Depression, positive SI no HI All other systems reviewed and are negative [facility] Past Medical History Attestation statement: The following information was validated with the patient. Source: old records reviewed Medical History Opioid use disorder, severe, on maintenance therapy Social History Social History Household Members: Children and Friend(s) Household Members Other:: Son Housing: House Do you presently have visiting nurse or other home services: No Unable to assess alcohol history related to: Unknown Alcohol intake: current Alcohol intake frequency: does not drink Patient Tobacco Use Status: Current everyday Tobacco user Tobacco use type: Cigarette Cigarette Packs Per Day: 0.5 Cigarettes Per Day: 10.0 Years Smoked: 50 Smoked in Last 30 Days: Yes e-Cigarette/Vaping Use: Never Used Patient Interested in Nicotine Replacement: Yes Patient Given Instructions on How to Stop Smoking: Yes Date Education Initiated: 12/01/24 Second Hand Smoke Exposure: Yes Use of substances other than those prescribed or required for medical reasons: No Substance Use Type: Crack/Cocaine, Heroin and Marijuana Currently Displaying Signs/Symptoms of Drug Intoxication Withdrawal: No Have you been hit, kicked, punched, or otherwise hurt by someone within the past year? If so, by whom?: No Do you feel safe in your current relationship?: No Current Relationship Is there a partner from a previous relationship who is making you feel unsafe now?: No Are you made to feel afraid or neglected: No Spiritual Healthcare Practices: none reported Pentecostalism Healthcare Practices: none reported Cultural Healthcare Practices: none reported Advance Directives: No Advance Directives Information Provided: Yes Do you have thoughts of harming others: None Do you have a plan to hurt others: No Plan Recently lost weight without trying: No How much weight loss: Not applicable Eating poorly because of decreased appetite: No Nutrition screen score: 0 Nutrition Risks: No Nutritional Risk Poor oral hygiene: No service: No Sexual orientation: Straight/Heterosexual Physical Exam Vital Signs: Vital Signs: Last Vital Signs Temp 96.8 F 12/05/24 07:56 Pulse 59 12/05/24 07:56 Resp 20 12/05/24 07:56 BP 119/68 12/05/24 07:56 Pulse Ox 96 12/05/24 07:56 O2 Del Method Room Air 12/05/24 07:56 BMI result Body Mass Index 25.3 Appearance: Alert. Oriented X3. No acute distress. Eyes: Pupils equal, round and reactive to light. ENT: Pharynx normal. atraumatic Neck: Normal inspection. Neck supple. CVS: Normal heart rate and rhythm. Pulses normal. Respiratory: No respiratory distress. Breath sounds normal. Chest: no ttp along sternum no signs of trauma Abdomen: Soft and nontender. Skin: Skin warm and dry. Normal skin color. Normal skin turgor. Extremities: No lower extremity edema. No calf ttp Neuro: Oriented X 3. No motor deficit. No sensory deficit. CN2-12 intact Course Course Course Narrative: Time: 08:15 Date: 12/01/24 Provider: OSMANY Lew CBC without leukocytosis or left shift. Normocytic anemia, H&H stable. Chemistry without acute electrolyte abnormality requiring intervention. No TONY. Random glucose 129. Liver function normal. Total CK 49. No rhabdo. Urine toxicology positive for opiates, methadone, fentanyl. Ethanol 12. Salicylates, acetaminophen undetectable. Valproic acid within therapeutic levels. Patient in physician observation for care team eval.? No acute events reported overnight. No current complaints. VS stable.? Patient is pending CARE team evaluation. Will continue to monitor. Reevaluation(s) Reevaluation #1: 12/01/2024 11:30 DR. Celis's progress note: VSS, no event overnight, care team input is appreciated patient now is under section 12 and bed search is underway, continue with physician observation. Reevaluation #2: Time: 22:00 Date: 12/01/24 Provider: Cristel Briceño DO Physician observation ended at 2200. Patient to be admitted as inpatient to psychiatry. Medications Administered Generic Name Dose Route Start Last Admin Trade Name Freq PRN Reason Stop Dose Admin Acetaminophen 650 mg 12/01/24 21:11 12/04/24 20:54 Acetaminophen 325 Mg Tablet PO 650 mg Q6H PRN Administration Headache/Pain, Scale 1-10 Amitriptyline HCl 20 mg 12/01/24 21:11 12/04/24 20:54 Amitriptyline Hcl 10 Mg Tablet PO 20 mg BEDTIME ELISABET Administration Calcium Carbonate/Cholecalciferol 500 mg 12/01/24 21:15 12/05/24 08:51 Calcium + Vitamin D 250 Mg Tablet PO 500 mg BID ELISABET Administration Cyanocobalamin 1,000 mcg 12/02/24 09:00 12/05/24 08:52 Cyanocobalamin (Vitamin B-12) 1,000 Mcg Tablet PO 1,000 mcg DAILY ELISABET Administration Divalproex Sodium 1,250 mg 12/01/24 21:11 12/04/24 20:54 Divalproex Sodium Er 250 Mg Tab.Er.24h PO 1,250 mg BEDTIME ELISABET Administration Famotidine 20 mg 12/02/24 06:30 12/05/24 06:44 Famotidine 20 Mg Tablet PO 20 mg DAILY@0630 ELISABET Administration Gabapentin 900 mg 12/02/24 08:00 12/05/24 08:50 Gabapentin 300 Mg Capsule PO 900 mg BID@0800,1200 ELISABET Administration Gabapentin 1,200 mg 12/01/24 21:11 12/04/24 20:53 Gabapentin 400 Mg Capsule PO 1,200 mg BEDTIME ELISABET Administration Magnesium Oxide 400 mg 12/02/24 09:00 12/05/24 08:52 Magnesium Oxide 400 Mg Tablet PO 400 mg DAILY ELISABET Administration Melatonin 6 mg 12/01/24 21:15 12/04/24 20:52 Melatonin 3 Mg Tablet PO 6 mg BEDTIME PRN Administration Sleep Memantine 5 mg 12/01/24 21:11 12/05/24 08:51 Memantine Hcl 5 Mg Tablet PO 5 mg BID ELISABET Administration Naproxen 500 mg 12/02/24 09:00 12/05/24 08:51 Naproxen 500 Mg Tablet PO 500 mg BID ELISABET Administration Quetiapine Fumarate 100 mg 12/01/24 21:11 12/04/24 20:55 Quetiapine Fumarate 100 Mg Tablet PO 100 mg BEDTIME ELISABET Administration Senna/Docusate Sodium 2 tab 12/01/24 21:11 12/04/24 20:55 Sennosides/Docusate Sodium Tablet PO 2 tab BEDTIME PRN Administration Constipation Vitamin D 50 mcg 12/02/24 09:00 12/05/24 08:51 Cholecalciferol (Vitamin D3) 25 Mcg Tablet PO 50 mcg DAILY ELISABET Administration Medical Decision Making Medical Decision Making [facility] Narrative: 74 yo male with PMH of cognitive impairment, opiate use disorder, bipolar disorder, depression, GERD here with c/o intentional overdose who received CPR by the family but denies chest pain. There is no head trauma. At this time I am going to obtain tox labs, CPK, EKG, CXR for any chest trauma. Once he is cleared he will need CARE team I was informed by the patient's nurse that the patient was admitted at 22:10 on 12/01/2024 Differential Diagnosis Differential Diagnoses: The differential diagnosis associated with the presentation includes intentional overdose, rhabdo, lyte abnormality Admission/Observation Consideration of admission/observation: Escalation of care including admission/observation considered physician observation started at 1151pm medically cleared for CARE team Consult Healthcare Provider Management of the patient was discussed with: Behavioral Health Provider Lab Data [facility] Lab Attestation statement: I reviewed the patient's lab results. 11/30/24 23:52 11/30/24 23:52 Labs: Lab Results 11/30/24 12/01/24 Range/Units 23:52 02:26 WBC 10.1 (4.8-10.8) X10*3/uL RBC 3.63 L (4.60-5.80) X10*6/uL Hgb 10.8 L (14.0-18.0) g/dl Hct 32.5 L (42.0-52.0) % MCV 89.5 (80.0-98.0) fL MCH 29.8 (27.0-33.0) pg MCHC 33.2 (31.0-36.0) g/dl RDW 14.4 (11.0-16.0) % Plt Count 251 (160-400) X10*3/uL MPV 9.0 L (9.4-12.4) fL Immature Gran % (Auto) 0.8 H (0.0-0.4) % Neut % (Auto) 50.1 (45-73) % Lymph % (Auto) 35.9 (20-40) % [place] % (Auto) 9.2 (2-11) % Eos % (Auto) 3.5 (0-4) % Baso % (Auto) 0.5 (0-2) % Lymph # (Auto) 3.6 (1.2-4.9) X10*3/uL [place] # (Auto) 0.9 (0.1-1.2) X10*3/uL Eos # (Auto) 0.4 (0.0-0.4) X10*3/uL Baso # (Auto) 0.1 (0.0-0.2) X10*3/uL Abs Immat Gran (auto) 0.08 H (0.00-0.03) X10*3/uL Absolute Neuts (auto) 5.1 (2.0-8.3) x10*3/uL Absolute Nucleated RBC 0.000 (0.0-0.012) X10*3/uL Nucleated RBC % (auto) 0.0 (0.0-0.2) /100WBC Sodium 140 (135-145) mmol/L Potassium 4.0 (3.3-5.1) mmol/L Chloride 106 (96-108) mmol/L Carbon Dioxide 22 (22-29) mmol/L Anion Gap 16 (12-20) BUN 14 (9-16) mg/dL Creatinine 0.96 (0.5-1.4) mg/dL Estim Creat Clear Calc 58.7 Estimated GFR > 60 Random Glucose 129 H (60-115) mg/dL Calcium 9.1 (8.4-10.2) mg/dL Magnesium 2.0 (1.6-2.6) mg/dL Total Bilirubin 0.1 (0.0-1.0) mg/dL Direct Bilirubin < 0.2 (0.0-0.5) mg/dL AST 18 (5-37) U/L ALT 11 (0-40) U/L Alkaline Phosphatase 54 (39-117) U/L Total Creatine Kinase 49 (38-174) U/L Total Protein 7.7 (6.5-8.0) g/dL Albumin 4.1 (3.5-5.0) g/dL Salicylates < 5.0 L (15-30) mg/dL Urine Opiates Screen POSITIVE H (Not Detect) Ur Buprenorphine Scrn Not Detected (Not Detect) ng/mL Ur Oxycodone Screen Not Detected (Not Detect) ng/mL Urine Methadone Screen Positive H (Not Detect) ng/mL Urine Fentanyl Screen POSITIVE H (Not Detect) Acetaminophen < 3 (<30) mcg/mL Ur Barbiturates Screen Not Detected (Not Detect) Valproic Acid 60.0 (50.0-100.0) mcg/mL Ur Phencyclidine Scrn Not Detected (Not Detect) Ur Amphetamines Screen Not Detected (Not Detect) U Benzodiazepines Scrn Not Detected (Not Detect) Urine Cocaine Screen Not Detected (Not Detect) U Marijuana (THC) Screen Not Detected (Not Detect) Ethyl Alcohol 12 mg/dL Independent Interpretation I performed an independent interpretation of an: EKG and Plain X-Ray (no PTX) Interpretation: Rate: 56 Rhythm: sinus bradycardia Mcclellan: normal Normal P waves. Normal MORRO. Normal QRS complex. ST T wave : normal no SITA qTC: 430 prior studies: no acute ischemia The study has been interpreted contemporaneously by me. . Radiology Impression Discussion of test interpretation with radiology: I have reviewed the radiologist's reading. Independent Historian Clinical information obtained from an independent historian. History obtained from or confirmed by: EMS External Record Review External record reviewed: Inpatient record and Outpatient record Discharge Plan Discharge Clinical Impression: Drug overdose Qualifiers: Encounter type: initial encounter Injury intent: intentional self-harm Qualified Code(s): T50.902A - Poisoning by unspecified drugs, medicaments and biological substances, intentional self-harm, initial encounter Patient Disposition: Admitted As Inpatient Interventions: Admission Worksheet (ED) Last Done: 12/01/24 22:10 Discharge Date/Time: 12/01/24 22:10
[2024-12-01] VITALS (7 sets, daily range): BP systolic 123–141; BP diastolic 64–87; PULSE 59–75; RESP 15–19; TEMP 36.1–37; O2SAT 95–97
[2024-12-01 00:01] LABS: MANUAL DIFF FLAG NO
[2024-12-01 00:02] LABS: Hematocrit 32.5 % (42.0-52.0); Hemoglobin 10.8 g/dl (14.0-18.0); Imm Gran Abs Auto 0.08 X10*3/uL (0.00-0.03); Imm Gran Pct Auto 0.8 % (0.0-0.4); Lymphocytes Absolute Auto 3.6 X10*3/uL (1.2-4.9); Mean Corpuscular HGB Conc 33.2 g/dl (31.0-36.0); Mean Corpuscular Hemoglobin 29.8 pg (27.0-33.0); Mean Corpuscular Volume 89.5 fL (80.0-98.0); NRBC Abs Auto 0.000 X10*3/uL (0.0-0.012); NRBC Pct Auto 0.0 /100WBC (0.0-0.2); Platelet Count 251 X10*3/uL (160-400); Red Blood Count 3.63 X10*6/uL (4.60-5.80); White Blood Count 10.1 X10*3/uL (4.8-10.8)
[2024-12-01 00:18] LABS: Alanine Aminotransferase 11 U/L (0-40); Albumin Level 4.1 g/dL (3.5-5.0); Alkaline Phosphatase 54 U/L (39-117); Anion Gap 16 (12-20); Aspartate Amino Transferase 18 U/L (5-37); Blood Urea Nitrogen 14 mg/dL (9-16); Calcium 9.1 mg/dL (8.4-10.2); Carbon Dioxide 22 mmol/L (22-29); Chloride 106 mmol/L (96-108); Creatinine Clr Calc Pharmacy 58.7; Estimated Glomerular Filt Rate > 60; Magnesium 2.0 mg/dL (1.6-2.6); Potassium 4.0 mmol/L (3.3-5.1); Sodium 140 mmol/L (135-145); Total Protein 7.7 g/dL (6.5-8.0)
[2024-12-01 00:26] LABS: Acetaminophen LAB < 3 mcg/mL (<30); Salicylate < 5.0 mg/dL (15-30)
--- NOTE | 2024-12-01 01:14 | PC.NURSE ---
pt ambulated around ED w/ rolling walker, aware, pt ambulated w/ brisk steady gait, limp noted w/ pt's left leg
--- NOTE | 2024-12-01 01:58 | PC.NURSE ---
attempted to complete med rec on this pt, pt only able to name two medications w/ unknown dose
[2024-12-01 02:52] LABS: Cannabinoid Screen Urine Not Detected (Not Detect)
--- NOTE | 2024-12-01 07:13 | PC.NURSE ---
Pt appears to be sleeping, equal, non labored respirations. 1:1 at bedside for safety. Plan of care ongoing.
--- NOTE | 2024-12-01 11:39 | MHC.CARE ---
Pt meets the criteria for IPLOC secondary to an intentional overdose in a suicide attempt. Section 12a in chart. ED provider in agreement.
--- NOTE | 2024-12-01 14:56 | MHC.CARE ---
Patient accepted to [facility] located @ [address] [place] [address] Rd, [place] [address] for today, ETA 5pm. Accepting provider is Dr Court Tilley F31.5 Bipolar Disorder F11.20 Opioid Use Disorder. Ambulance picking tech here at 430pm.
[2024-12-01 17:59] LABS: Appearance Urine Clear; Glucose Urine UA Negative (Negative); PH 6.5 (5.0-9.0); Specific Gravity - Urine 1.020 (1.005-1.025)
--- NOTE | 2024-12-01 18:50 | PHA.MEDREC ---
Pharmacy Consult ? Medication Reconciliation Pharmacy has completed the medication reconciliation. Flaco completed med rec using list from [place] and I reviewed it.
--- NOTE | 2024-12-01 21:37 | PC.NURSE ---
report given to NIKIA Wayne on [facility]. awaiting transport.
[2024-12-01] MEDS: Divalproex Sodium ER 250 MG TAB.ER.24H 1250 MG PO (22:34)
[2024-12-01] MEDS: Calcium + Vitamin D 250 MG TABLET 500 MG PO (22:37)
--- NOTE | 2024-12-02 04:04 | PC.ADMIT ---
Mahendra is a 74 year old bilingual male. Patient arrived from the [facility] ED and was signed in CV. Patient originally to hospital for an attempted suicide by overdose of opiates. Patient stated in the ED that he wanted to and no longer wanted to live at the time. Patient skin check done, found Heart lead wires attached to patient on skin check. Leads removed and returned to the ED. No remarkable findings on skin to note. Patient pleasant and cooperative on arrival. Alert x 2, not to place or situation. Patient reports anxiety 5/10 and depression 6/10. Patient reported that he had auditory hallucinations of muffled voice on 11/30/2024, but was not hearing any on arrival to the unit. Patient denies any active SI/HI or AH/VH. Patient reporting that he has had a recent break up with his girlfriend and has been living with his son. Patient pleasant and cooperative during assessment. Patient took scheduled medications.
[2024-12-02 07:58] VITALS: BP 105/65; PULSE 70; TEMP 36; O2SAT 97
[2024-12-02] MEDS: Calcium + Vitamin D 250 MG TABLET 500 MG PO ×2 (08:48→20:28)
--- NOTE | 2024-12-02 09:13 | PC.NURSE ---
Pt declined to sign GUSTAVO at this time.
--- NOTE | 2024-12-02 09:33 | HO.PSYADMNOT ---
HPI Date of Service: 12/02/24 Chief Complaint: Overdose HPI Narrative: per CARE team reganal, rufus BLACK after being found unresponsive at home by family members. family did CPR, pt was given 12 mg narcan by EMS once on-scene. at ED pt reported he had attemptd suicide via intentional overdose: i did a bag of whatever is on the streets. pt reported substantial medical problems, including difficulty ambulating and chronic pain. he identified these issues as playing a substantial role in his SI. on interview with pt is calm and pleasant. he denies any SI at present and explains his previous SI as due to being very tired both emotionally and physically. he is unable to explain what has shifted in the past couple of days such that he is no longer feeling suicidal. he would like to remain in the hospital for a brief period to collect himself, then return to outpatient treatment. he reports he has been sober from all substances since august of 2024, including alcohol and opioids, and his overdose was a one-time use event. he reports he has been medication compliant and would like to continue his prior regimen. no other complaints or requests. Past Psychiatric History: The patient has several psychiatric admissions, he was diagnosed with bipolar disorder in his 40s, he has at least 6 prior psychiatric admissions last admission at [facility] in early 2024. Inpt on M3 10/2022 for depression and intentional Od on heroin while in public transportation. He follows treatment and the [facility] as an outpatient- Dr. Torre [phone] h/o numerous SAs. Medical Evaluation Reviewed: Yes [facility] Medical History Opioid use disorder, severe, on maintenance therapy Family History: Denies Social History: The patient is born and raised in [place], he served in the and according to him he has 4 adult children. 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 lives in an apartment in [place] with his son. Substance History: opioid - reported h/o snorting heroin for 50 years. recently sober, since august 2024. also h/o alcohol and cannabis. sober of all substances since 08/2024. denies h/o substance use Tx. UTOX OPIATE, METHADONE, FENTANYL POS Trauma History: Denies Diagnostics Vital Signs (24Hr): Vital Signs - 24 hr 12/01/24 14:35 12/01/24 15:31 12/01/24 20:48 Temperature 97.9 F 98.4 F 98.6 F Pulse Rate 62 59 75 Respiratory Rate 16 19 16 Blood Pressure 139/73 123/65 138/72 Pulse Oximetry 95 96 97 Oxygen Delivery Method Room Air Room Air Room Air 12/01/24 22:15 12/02/24 07:58 Temperature 96.9 F 96.8 F Pulse Rate 72 70 Respiratory Rate 16 Blood Pressure 135/77 105/65 Pulse Oximetry 95 97 Oxygen Delivery Method Room Air Room Air BMI result Body Mass Index 25.3 Labs 11/30/24 23:52 11/30/24 23:52 Labs: Laboratory Results - last 48 hr 11/30/24 12/01/24 12/01/24 23:52 02:26 17:50 WBC 10.1 RBC 3.63 L Hgb 10.8 L Hct 32.5 L MCV 89.5 MCH 29.8 MCHC 33.2 RDW 14.4 Plt Count 251 MPV 9.0 L Immature Gran % (Auto) 0.8 H Neut % (Auto) 50.1 Lymph % (Auto) 35.9 [place] % (Auto) 9.2 Eos % (Auto) 3.5 Baso % (Auto) 0.5 Lymph # (Auto) 3.6 [place] # (Auto) 0.9 Eos # (Auto) 0.4 Baso # (Auto) 0.1 Abs Immat Gran (auto) 0.08 H Absolute Neuts (auto) 5.1 Absolute Nucleated RBC 0.000 Nucleated RBC % (auto) 0.0 Sodium 140 Potassium 4.0 Chloride 106 Carbon Dioxide 22 Anion Gap 16 BUN 14 Creatinine 0.96 Estim Creat Clear Calc 58.7 Estimated GFR > 60 Random Glucose 129 H Calcium 9.1 Magnesium 2.0 Total Bilirubin 0.1 Direct Bilirubin < 0.2 AST 18 ALT 11 Alkaline Phosphatase 54 Total Creatine Kinase 49 Total Protein 7.7 Albumin 4.1 Urine Color Yellow Urine Appearance Clear Urine pH 6.5 Ur Specific [place] 1.020 Urine Protein Negative Urine Glucose (UA) Negative Urine Ketones Trace Urine Blood Negative Urine Nitrite Negative Ur Leukocyte Esterase Negative Salicylates < 5.0 L Urine Opiates Screen POSITIVE H Ur Buprenorphine Scrn Not Detected Ur Oxycodone Screen Not Detected Urine Methadone Screen Positive H Urine Fentanyl Screen POSITIVE H Acetaminophen < 3 Ur Barbiturates Screen Not Detected Valproic Acid 60.0 Ur Phencyclidine Scrn Not Detected Ur Amphetamines Screen Not Detected U Benzodiazepines Scrn Not Detected Urine Cocaine Screen Not Detected U Marijuana (THC) Screen Not Detected Ethyl Alcohol 12 Meds/Allergies Meds Home Medications ?Medication ?Instructions ?Recorded ?Confirmed ?Type alendronate 70 mg tablet 70 mg PO MO@0900 11/18/22 12/01/24 History famotidine 20 mg tablet 20 mg PO DAILY@0630 11/18/22 12/01/24 History amitriptyline 10 mg tablet 20 mg PO BEDTIME 02/26/24 12/01/24 History cholecalciferol (vitamin D3) 50 50 mcg PO DAILY 02/26/24 12/01/24 History mcg (2,000 unit) tablet (Vitamin D3) cyanocobalamin (vitamin B-12) 1,000 mcg PO DAILY 02/26/24 12/01/24 History 1,000 mcg tablet divalproex 250 mg tablet,extended 1,250 mg PO BEDTIME 02/26/24 12/01/24 History release 24 hr gabapentin 300 mg capsule 1,200 mg PO BEDTIME 02/26/24 12/01/24 History gabapentin 300 mg capsule 900 mg PO BID@0800,1200 02/26/24 12/01/24 History meloxicam 15 mg tablet 7.5 mg PO DAILY 02/26/24 12/01/24 History sennosides 8.6 mg-docusate sodium 2 tab PO BEDTIME PRN Constipation 02/26/24 12/01/24 History 50 mg tablet (Senna Plus) vitamin E (dl, acetate) 45 mg (100 45 mg PO DAILY 02/26/24 12/01/24 History unit) capsule quetiapine 100 mg tablet (Seroquel) 100 mg PO BEDTIME 07/06/24 12/01/24 History memantine 5 mg tablet 5 mg PO BID 12/01/24 12/01/24 History Allergies Allergies Allergy/AdvReac Type Severity Reaction Status Date / Time No Known Allergies (No Known Allergy Verified 11/30/24 23:09 Allergies*) Mental Status Exam Mental Status Exam Narrative: Appearance: wearing hospital gown, fair hygiene, in NAD Behavior: cooperative Psychomotor: no agitation or retardation noted. Speech: clear, normal rate/rhythm/volume, spontaneous TP: linear TC: no delusions or paranoia expressed Mood: i feel better than yesterday Affect: congruent SI: none HI: none VH/AH: none Insight/judgment: poor x 2. Memory/cog: alert, oriented x 4. Assessment & Plan Assessment & Plan (1) Cognitive impairment: Status: Acute Code(s): R41.89 - Other symptoms and signs involving cognitive functions and awareness (2) Opioid use disorder: Status: Acute Code(s): F11.90 - Opioid use, unspecified, uncomplicated (3) Bipolar disorder: Status: Acute Code(s): F31.9 - Bipolar disorder, unspecified Plan continue home medications. consider more aggressive anti-depressant treatment. allow some days to process behavior. dispo planning. Patient educated on: diagnosis, medication risk/benefits and substance abuse Reason for continued inpatient stay Substantial Risk for: harm to self Statement Statement: I have reviewed the history and physical and performed a pertinent examination on my patient. No changes have occurred unless specified. If the History and Physical was not performed prior to admission, the Hospitalist's service will be consulted for completing the admission physical. Time Spent With Patient Time: Total time managing care of this patient today _55___ minutes.
[2024-12-02 20:00] VITALS: BP 137/65; PULSE 66; RESP 16; TEMP 35.8; O2SAT 94
[2024-12-02] MEDS: Divalproex Sodium ER 250 MG TAB.ER.24H 1250 MG PO (20:26)
[2024-12-03 08:00] VITALS: BP 117/65; PULSE 64; RESP 16; TEMP 36; O2SAT 96
[2024-12-03] MEDS: Calcium + Vitamin D 250 MG TABLET 500 MG PO ×2 (08:40→21:47)
--- NOTE | 2024-12-03 14:37 | P.PNPSI_ITS ---
Subjective Subjective Date of Service: 12/03/24 Reason For Visit: Overdose Interim History: in bed. calm, cooperative. states he is feeling better. per staff, withdrawn, guarded. not attending groups. taking meds. feeling better. denies Sx aside from anxiety. slept 8 hours. Mental Status Exam Mental Status Exam Narrative: Appearance: wearing hospital gown, fair hygiene, in NAD Behavior: cooperative Psychomotor: no agitation or retardation noted. Speech: clear, normal rate/rhythm/volume, spontaneous TP: linear TC: no delusions or paranoia expressed Mood: i feel better Affect: congruent SI: none HI: none VH/AH: none Insight/judgment: poor x 2. Memory/cog: alert, oriented x 4. Diagnostics Vital Signs (24Hr): Vital Signs - 24 hr 12/02/24 20:00 12/03/24 08:00 Temperature 96.5 F L 96.8 F Pulse Rate 66 64 Respiratory Rate 16 16 Blood Pressure 137/65 117/65 Pulse Oximetry 94 96 Oxygen Delivery Method Room Air Room Air BMI result Body Mass Index 25.3 Labs 11/30/24 23:52 11/30/24 23:52 Labs: Laboratory Results - last 48 hr 12/01/24 17:50 Urine Color Yellow Urine Appearance Clear Urine pH 6.5 Ur Specific [place] 1.020 Urine Protein Negative Urine Glucose (UA) Negative Urine Ketones Trace Urine Blood Negative Urine Nitrite Negative Ur Leukocyte Esterase Negative Medications Medications Current Medications Acetaminophen (Acetaminophen 325 Mg Tablet) 650 mg PO Q6H PRN PRN Reason: Headache/Pain, Scale 1-10 Al Hydroxide/Mg Hydroxide (Magnesium Hydrox/Alum Hydrox 30 Ml Oral.Susp) 30 ml PO Q6H PRN PRN Reason: Heartburn/Nausea Amitriptyline HCl (Amitriptyline Hcl 10 Mg Tablet) 20 mg PO BEDTIME [facility] Last Admin: 12/02/24 20:29 Dose: 20 mg Calcium Carbonate/Cholecalciferol (Calcium + Vitamin D 250 Mg Tablet) 500 mg PO BID [facility] Last Admin: 12/03/24 08:40 Dose: 500 mg Cyanocobalamin (Cyanocobalamin (Vitamin B-12) 1,000 Mcg Tablet) 1,000 mcg PO DAILY [facility] Last Admin: 12/03/24 08:40 Dose: 1,000 mcg Divalproex Sodium (Divalproex Sodium Er 250 Mg Tab.Er.24h) 1,250 mg PO BEDTIME [facility] Last Admin: 12/02/24 20:26 Dose: 1,250 mg Famotidine (Famotidine 20 Mg Tablet) 20 mg PO DAILY@0630 [facility] Last Admin: 12/03/24 06:43 Dose: 20 mg Gabapentin (Gabapentin 300 Mg Capsule) 900 mg PO BID@0800,1200 [facility] Last Admin: 12/03/24 12:30 Dose: 900 mg Gabapentin (Gabapentin 400 Mg Capsule) 1,200 mg PO BEDTIME [facility] Last Admin: 12/02/24 20:27 Dose: 1,200 mg Magnesium Hydroxide (Milk Of Magnesia 30 Ml Oral.Susp) 30 ml PO DAILY PRN PRN Reason: Constipation Magnesium Oxide (Magnesium Oxide 400 Mg Tablet) 400 mg PO DAILY [facility] Last Admin: 12/03/24 08:39 Dose: 400 mg Melatonin (Melatonin 3 Mg Tablet) 6 mg PO BEDTIME PRN PRN Reason: Sleep Memantine (Memantine Hcl 5 Mg Tablet) 5 mg PO BID [facility] Last Admin: 12/03/24 08:40 Dose: 5 mg Naproxen (Naproxen 500 Mg Tablet) 500 mg PO BID [facility] Last Admin: 12/03/24 08:39 Dose: 500 mg Nicotine Polacrilex (Nicotine Polacrilex 2 Mg Gum) 2 mg BUCCAL Q2H PRN PRN Reason: Nicotine Cravings Quetiapine Fumarate (Quetiapine Fumarate 100 Mg Tablet) 100 mg PO BEDTIME [facility] Last Admin: 12/02/24 20:28 Dose: 100 mg Senna/Docusate Sodium (Sennosides/Docusate Sodium Tablet) 2 tab PO BEDTIME PRN PRN Reason: Constipation Last Admin: 12/02/24 21:06 Dose: 2 tab Trazodone HCl (Trazodone Hcl 50 Mg Tablet) 50 mg PO BEDTIME MRX1 PRN PRN Reason: Insomnia Vitamin D (Cholecalciferol (Vitamin D3) 25 Mcg Tablet) 50 mcg PO DAILY [facility] Last Admin: 12/03/24 08:40 Dose: 50 mcg Allergies Allergies Allergy/AdvReac Type Severity Reaction Status Date / Time No Known Allergies (No Known Allergy Verified 11/30/24 23:09 Allergies*) Assessment & Plan Assessment & Plan (1) Cognitive impairment: Status: Acute Code(s): R41.89 - Other symptoms and signs involving cognitive functions and awareness (2) Opioid use disorder: Status: Acute Code(s): F11.90 - Opioid use, unspecified, uncomplicated (3) Bipolar disorder: Status: Acute Code(s): F31.9 - Bipolar disorder, unspecified Plan 12/02: continue home medications. consider more aggressive anti-depressant treatment. allow some days to process behavior. dispo planning. 12/03: reports he feels improved. +anxiety. continue current mgmt. Reason for continued inpatient stay Substantial Risk for: harm to self, inability to function and rapid decompensation Time Spent With Patient Time: Total time managing care of this patient today ____ minutes.
[2024-12-03 19:25] VITALS: BP 156/74; PULSE 83; RESP 15; TEMP 35.9; O2SAT 95
[2024-12-03] MEDS: Divalproex Sodium ER 250 MG TAB.ER.24H 1250 MG PO (21:46)
[2024-12-04 08:00] VITALS: BP 137/63; PULSE 60; RESP 18; TEMP 36.3; O2SAT 95
[2024-12-04] MEDS: Calcium + Vitamin D 250 MG TABLET 500 MG PO ×2 (09:22→20:51)
--- NOTE | 2024-12-04 15:05 | HO.PSYCHPN ---
Subjective Subjective Date of Service: 12/04/24 Reason For Visit: Overdose Interim History: reports feeling better. no complaints or requests. per staff, feeling much better. taking meds. some depression. c/o somatic pains. slept 8 hours. Mental Status Exam Mental Status Exam Narrative: Appearance: wearing hospital gown, fair hygiene, in NAD Behavior: cooperative Psychomotor: no agitation or retardation noted. Speech: clear, normal rate/rhythm/volume, spontaneous TP: linear TC: no delusions or paranoia expressed Mood: i feel better Affect: congruent SI: none HI: none VH/AH: none Insight/judgment: poor x 2. Memory/cog: alert, oriented x 4. Diagnostics Vital Signs (24Hr): Vital Signs - 24 hr 12/03/24 19:25 12/04/24 08:00 Temperature 96.6 F L 97.3 F Pulse Rate 83 60 Respiratory Rate 15 18 Blood Pressure 156/74 H 137/63 Pulse Oximetry 95 95 Oxygen Delivery Method Room Air Room Air BMI result Body Mass Index 25.3 Labs 11/30/24 23:52 11/30/24 23:52 Medications Medications Current Medications Acetaminophen (Acetaminophen 325 Mg Tablet) 650 mg PO Q6H PRN PRN Reason: Headache/Pain, Scale 1-10 Al Hydroxide/Mg Hydroxide (Magnesium Hydrox/Alum Hydrox 30 Ml Oral.Susp) 30 ml PO Q6H PRN PRN Reason: Heartburn/Nausea Amitriptyline HCl (Amitriptyline Hcl 10 Mg Tablet) 20 mg PO BEDTIME [facility] Last Admin: 12/03/24 21:47 Dose: 20 mg Calcium Carbonate/Cholecalciferol (Calcium + Vitamin D 250 Mg Tablet) 500 mg PO BID [facility] Last Admin: 12/04/24 09:22 Dose: 500 mg Cyanocobalamin (Cyanocobalamin (Vitamin B-12) 1,000 Mcg Tablet) 1,000 mcg PO DAILY [facility] Last Admin: 12/04/24 09:22 Dose: 1,000 mcg Divalproex Sodium (Divalproex Sodium Er 250 Mg Tab.Er.24h) 1,250 mg PO BEDTIME [facility] Last Admin: 12/03/24 21:46 Dose: 1,250 mg Famotidine (Famotidine 20 Mg Tablet) 20 mg PO DAILY@0630 [facility] Last Admin: 12/04/24 06:29 Dose: 20 mg Gabapentin (Gabapentin 300 Mg Capsule) 900 mg PO BID@0800,1200 [facility] Last Admin: 12/04/24 12:25 Dose: 900 mg Gabapentin (Gabapentin 400 Mg Capsule) 1,200 mg PO BEDTIME [facility] Last Admin: 12/03/24 21:46 Dose: 1,200 mg Magnesium Hydroxide (Milk Of Magnesia 30 Ml Oral.Susp) 30 ml PO DAILY PRN PRN Reason: Constipation Magnesium Oxide (Magnesium Oxide 400 Mg Tablet) 400 mg PO DAILY [facility] Last Admin: 12/04/24 09:22 Dose: 400 mg Melatonin (Melatonin 3 Mg Tablet) 6 mg PO BEDTIME PRN PRN Reason: Sleep Last Admin: 12/03/24 21:47 Dose: 6 mg Memantine (Memantine Hcl 5 Mg Tablet) 5 mg PO BID [facility] Last Admin: 12/04/24 09:23 Dose: 5 mg Naproxen (Naproxen 500 Mg Tablet) 500 mg PO BID [facility] Last Admin: 12/04/24 09:22 Dose: 500 mg Nicotine Polacrilex (Nicotine Polacrilex 2 Mg Gum) 2 mg BUCCAL Q2H PRN PRN Reason: Nicotine Cravings Quetiapine Fumarate (Quetiapine Fumarate 100 Mg Tablet) 100 mg PO BEDTIME [facility] Last Admin: 12/03/24 21:47 Dose: 100 mg Senna/Docusate Sodium (Sennosides/Docusate Sodium Tablet) 2 tab PO BEDTIME PRN PRN Reason: Constipation Last Admin: 12/03/24 21:46 Dose: 2 tab Trazodone HCl (Trazodone Hcl 50 Mg Tablet) 50 mg PO BEDTIME MRX1 PRN PRN Reason: Insomnia Vitamin D (Cholecalciferol (Vitamin D3) 25 Mcg Tablet) 50 mcg PO DAILY [facility] Last Admin: 12/04/24 09:23 Dose: 50 mcg Allergies Allergies Allergy/AdvReac Type Severity Reaction Status Date / Time No Known Allergies (No Known Allergy Verified 11/30/24 23:09 Allergies*) Assessment & Plan Assessment & Plan (1) Cognitive impairment: Status: Acute Code(s): R41.89 - Other symptoms and signs involving cognitive functions and awareness (2) Opioid use disorder: Status: Acute Code(s): F11.90 - Opioid use, unspecified, uncomplicated (3) Bipolar disorder: Status: Acute Code(s): F31.9 - Bipolar disorder, unspecified Plan 12/02: continue home medications. consider more aggressive anti-depressant treatment. allow some days to process behavior. dispo planning. 12/03: reports he feels improved. +anxiety. continue current mgmt. 12/04: continues improved. continue current mgmt. Reason for continued inpatient stay Substantial Risk for: harm to self Time Spent With Patient Time: Total time managing care of this patient today ____ minutes.
[2024-12-04 20:00] VITALS: BP 142/67; PULSE 64; RESP 18; TEMP 36.2; O2SAT 96
[2024-12-04] MEDS: Divalproex Sodium ER 250 MG TAB.ER.24H 1250 MG PO (20:54)
[2024-12-05 07:56] VITALS: BP 119/68; PULSE 59; RESP 20; TEMP 36; O2SAT 96
[2024-12-05] MEDS: Calcium + Vitamin D 250 MG TABLET 500 MG PO ×2 (08:51→20:26)
--- NOTE | 2024-12-05 13:13 | P.PNPSI_ITS ---
Subjective Subjective Date of Service: 12/05/24 Reason For Visit: Overdose Interim History: feeling well. no issues. no requests. per staff, cheerful. c/o pains. anxiety eves. slept 8 hours. Mental Status Exam Mental Status Exam Narrative: Appearance: wearing hospital gown, fair hygiene, in NAD Behavior: cooperative Psychomotor: no agitation or retardation noted. Speech: clear, normal rate/rhythm/volume, spontaneous TP: linear TC: no delusions or paranoia expressed Mood: i feel better Affect: congruent SI: none HI: none VH/AH: none Insight/judgment: poor x 2. Memory/cog: alert, oriented x 4. Diagnostics Vital Signs (24Hr): Vital Signs - 24 hr 12/04/24 20:00 12/05/24 07:56 Temperature 97.2 F 96.8 F Pulse Rate 64 59 Respiratory Rate 18 20 Blood Pressure 142/67 H 119/68 Pulse Oximetry 96 96 Oxygen Delivery Method Room Air Room Air BMI result Body Mass Index 25.3 Labs 11/30/24 23:52 11/30/24 23:52 Medications Medications Current Medications Acetaminophen (Acetaminophen 325 Mg Tablet) 650 mg PO Q6H PRN PRN Reason: Headache/Pain, Scale 1-10 Last Admin: 12/04/24 20:54 Dose: 650 mg Al Hydroxide/Mg Hydroxide (Magnesium Hydrox/Alum Hydrox 30 Ml Oral.Susp) 30 ml PO Q6H PRN PRN Reason: Heartburn/Nausea Amitriptyline HCl (Amitriptyline Hcl 10 Mg Tablet) 20 mg PO BEDTIME [facility] Last Admin: 12/04/24 20:54 Dose: 20 mg Calcium Carbonate/Cholecalciferol (Calcium + Vitamin D 250 Mg Tablet) 500 mg PO BID [facility] Last Admin: 12/05/24 08:51 Dose: 500 mg Cyanocobalamin (Cyanocobalamin (Vitamin B-12) 1,000 Mcg Tablet) 1,000 mcg PO DAILY [facility] Last Admin: 12/05/24 08:52 Dose: 1,000 mcg Divalproex Sodium (Divalproex Sodium Er 250 Mg Tab.Er.24h) 1,250 mg PO BEDTIME [facility] Last Admin: 12/04/24 20:54 Dose: 1,250 mg Famotidine (Famotidine 20 Mg Tablet) 20 mg PO DAILY@0630 [facility] Last Admin: 12/05/24 06:44 Dose: 20 mg Gabapentin (Gabapentin 300 Mg Capsule) 900 mg PO BID@0800,1200 [facility] Last Admin: 12/05/24 12:48 Dose: 900 mg Gabapentin (Gabapentin 400 Mg Capsule) 1,200 mg PO BEDTIME [facility] Last Admin: 12/04/24 20:53 Dose: 1,200 mg Magnesium Hydroxide (Milk Of Magnesia 30 Ml Oral.Susp) 30 ml PO DAILY PRN PRN Reason: Constipation Magnesium Oxide (Magnesium Oxide 400 Mg Tablet) 400 mg PO DAILY [facility] Last Admin: 12/05/24 08:52 Dose: 400 mg Melatonin (Melatonin 3 Mg Tablet) 6 mg PO BEDTIME PRN PRN Reason: Sleep Last Admin: 12/04/24 20:52 Dose: 6 mg Memantine (Memantine Hcl 5 Mg Tablet) 5 mg PO BID [facility] Last Admin: 12/05/24 08:51 Dose: 5 mg Naproxen (Naproxen 500 Mg Tablet) 500 mg PO BID [facility] Last Admin: 12/05/24 08:51 Dose: 500 mg Nicotine Polacrilex (Nicotine Polacrilex 2 Mg Gum) 2 mg BUCCAL Q2H PRN PRN Reason: Nicotine Cravings Quetiapine Fumarate (Quetiapine Fumarate 100 Mg Tablet) 100 mg PO BEDTIME [facility] Last Admin: 12/04/24 20:55 Dose: 100 mg Senna/Docusate Sodium (Sennosides/Docusate Sodium Tablet) 2 tab PO BEDTIME PRN PRN Reason: Constipation Last Admin: 12/04/24 20:55 Dose: 2 tab Trazodone HCl (Trazodone Hcl 50 Mg Tablet) 50 mg PO BEDTIME MRX1 PRN PRN Reason: Insomnia Vitamin D (Cholecalciferol (Vitamin D3) 25 Mcg Tablet) 50 mcg PO DAILY [facility] Last Admin: 12/05/24 08:51 Dose: 50 mcg Allergies Allergies Allergy/AdvReac Type Severity Reaction Status Date / Time No Known Allergies (No Known Allergy Verified 11/30/24 23:09 Allergies*) Assessment & Plan Assessment & Plan (1) Cognitive impairment: Status: Acute Code(s): R41.89 - Other symptoms and signs involving cognitive functions and awareness (2) Opioid use disorder: Status: Acute Code(s): F11.90 - Opioid use, unspecified, uncomplicated (3) Bipolar disorder: Status: Acute Code(s): F31.9 - Bipolar disorder, unspecified Plan 12/02: continue home medications. consider more aggressive anti-depressant treatment. allow some days to process behavior. dispo planning. 12/03: reports he feels improved. +anxiety. continue current mgmt. 12/04: continues improved. continue current mgmt. 12/05: continues improved. continue current mgmt. Reason for continued inpatient stay Substantial Risk for: harm to self and inability to function Time Spent With Patient Time: Total time managing care of this patient today ____ minutes.
[2024-12-05 19:54] VITALS: BP 158/72; PULSE 69; RESP 18; TEMP 36; O2SAT 97
[2024-12-05] MEDS: Divalproex Sodium ER 250 MG TAB.ER.24H 1250 MG PO (20:25)
[2024-12-06 07:39] VITALS: BP 137/75; PULSE 80; RESP 20; TEMP 35.8; O2SAT 97
[2024-12-06] MEDS: Calcium + Vitamin D 250 MG TABLET 500 MG PO ×2 (08:39→21:52)
--- NOTE | 2024-12-06 15:18 | PM.PSYDC ---
DS: Providers Provider Date of Service: 12/06/24 Date of admission: 12/01/24 16:25 Date of discharge: 12/07/24 Primary care physician: [facility] DS: Diagnosis Discharge Diagnosis (1) Cognitive impairment: Status: Acute (2) Opioid use disorder: Status: Acute (3) Bipolar disorder: Status: Acute DS: Medications Discharge Medications Home Medications: Home Medications ?Medication ?Instructions ?Recorded ?Confirmed alendronate 70 mg tablet 70 mg PO MO@0900 11/18/22 12/01/24 famotidine 20 mg tablet 20 mg PO DAILY@0630 11/18/22 12/01/24 amitriptyline 10 mg tablet 20 mg PO BEDTIME 02/26/24 12/01/24 cholecalciferol (vitamin D3) 50 50 mcg PO DAILY 02/26/24 12/01/24 mcg (2,000 unit) tablet (Vitamin D3) cyanocobalamin (vitamin B-12) 1,000 mcg PO DAILY 02/26/24 12/01/24 1,000 mcg tablet divalproex 250 mg tablet,extended 1,250 mg PO BEDTIME 02/26/24 12/01/24 release 24 hr gabapentin 300 mg capsule 1,200 mg PO BEDTIME 02/26/24 12/01/24 gabapentin 300 mg capsule 900 mg PO BID@0800,1200 02/26/24 12/01/24 meloxicam 15 mg tablet 7.5 mg PO DAILY 02/26/24 12/01/24 sennosides 8.6 mg-docusate sodium 2 tab PO BEDTIME PRN Constipation 02/26/24 12/01/24 50 mg tablet (Senna Plus) vitamin E (dl, acetate) 45 mg (100 45 mg PO DAILY 02/26/24 12/01/24 unit) capsule quetiapine 100 mg tablet (Seroquel) 100 mg PO BEDTIME 07/06/24 12/01/24 memantine 5 mg tablet 5 mg PO BID 12/01/24 12/01/24 Previous Rx's ?Medication ?Instructions ?Recorded calcium 500 mg (as 1 tab PO BID 30 days #60 tabs 01/22/22 carbonate)-vitamin D3 3.125 mcg (125 unit) tablet magnesium oxide 420 mg tablet 420 mg PO DAILY 30 days #30 tabs 01/22/22 melatonin 5 mg tablet 5 mg PO BEDTIME PRN Sleep 30 days 01/22/22 #30 tabs acetaminophen 325 mg tablet 650 mg (2 x 325 mg) PO Q6H PRN 12/06/24 Headache/Pain, Scale 1-10 15 days #120 tabs naloxone 4 mg/actuation nasal 4 mg intranasal Q2M PRN opioid 12/06/24 spray (Narcan) overdose 1 day #2 ea Mental Status Exam Mental Status Exam Narrative: Appearance: wearing hospital gown, fair hygiene, in NAD Behavior: cooperative Psychomotor: no agitation or retardation noted. Speech: clear, normal rate/rhythm/volume, spontaneous TP: linear TC: no delusions or paranoia expressed Mood: it's OK Affect: full range, flexible SI: none HI: none VH/AH: none Insight/judgment: poor x 2. Memory/cog: alert, oriented x 4. Data Data Completed and Pending Completed studies during hospitalization [Text1]: 11/30/24 12/01/24 12/01/24 23:52 02:26 17:50 WBC 10.1 RBC 3.63 L Hgb 10.8 L Hct 32.5 L MCV 89.5 MCH 29.8 MCHC 33.2 RDW 14.4 Plt Count 251 MPV 9.0 L Immature Gran % (Auto) 0.8 H Neut % (Auto) 50.1 Lymph % (Auto) 35.9 [place] % (Auto) 9.2 Eos % (Auto) 3.5 Baso % (Auto) 0.5 Lymph # (Auto) 3.6 [place] # (Auto) 0.9 Eos # (Auto) 0.4 Baso # (Auto) 0.1 Abs Immat Gran (auto) 0.08 H Absolute Neuts (auto) 5.1 Absolute Nucleated RBC 0.000 Nucleated RBC % (auto) 0.0 Sodium 140 Potassium 4.0 Chloride 106 Carbon Dioxide 22 Anion Gap 16 BUN 14 Creatinine 0.96 Estim Creat Clear Calc 58.7 Estimated GFR > 60 Random Glucose 129 H Calcium 9.1 Magnesium 2.0 Total Bilirubin 0.1 Direct Bilirubin < 0.2 AST 18 ALT 11 Alkaline Phosphatase 54 Total Creatine Kinase 49 Total Protein 7.7 Albumin 4.1 Urine Color Yellow Urine Appearance Clear Urine pH 6.5 Ur Specific [place] 1.020 Urine Protein Negative Urine Glucose (UA) Negative Urine Ketones Trace Urine Blood Negative Urine Nitrite Negative Ur Leukocyte Esterase Negative Salicylates < 5.0 L Urine Opiates Screen POSITIVE H Ur Buprenorphine Scrn Not Detected Ur Oxycodone Screen Not Detected Urine Methadone Screen Positive H Urine Fentanyl Screen POSITIVE H Acetaminophen < 3 Ur Barbiturates Screen Not Detected Valproic Acid 60.0 Ur Phencyclidine Scrn Not Detected Ur Amphetamines Screen Not Detected U Benzodiazepines Scrn Not Detected Urine Cocaine Screen Not Detected U Marijuana (THC) Screen Not Detected Ethyl Alcohol 12 DS: Summary Hospital Course Hospital Course: per 12/02 admission note: HPI Narrative: per CARE team bekah, pt WAYNE after being found unresponsive at home by family members. family did CPR, pt was given 12 mg narcan by EMS once on-scene. at ED pt reported he had attemptd suicide via intentional overdose: i did a bag of whatever is on the streets. pt reported substantial medical problems, including difficulty ambulating and chronic pain. he identified these issues as playing a substantial role in his SI. on interview with pt is calm and pleasant. he denies any SI at present and explains his previous SI as due to being very tired both emotionally and physically. he is unable to explain what has shifted in the past couple of days such that he is no longer feeling suicidal. he would like to remain in the hospital for a brief period to collect himself, then return to outpatient treatment. he reports he has been sober from all substances since august of 2024, including alcohol and opioids, and his overdose was a one-time use event. he reports he has been medication compliant and would like to continue his prior regimen. no other complaints or requests. Past Psychiatric History: The patient has several psychiatric admissions, he was diagnosed with bipolar disorder in his 40s, he has at least 6 prior psychiatric admissions last admission at [facility] in early 2024. Inpt on [facility] 10/2022 for depression and intentional Od on heroin while in public transportation. He follows treatment and the [place] as an outpatient- Dr. Torre [phone] h/o numerous SAs. Medical Evaluation Reviewed: Yes [facility] Medical History Opioid use disorder, severe, on maintenance therapy Family History: Denies Social History: The patient is born and raised in [place], he served in the and according to him he has 4 adult children. 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 lives in an apartment in [place] with his son. Substance History: opioid - reported h/o snorting heroin for 50 years. recently sober, since august 2024. also h/o alcohol and cannabis. sober of all substances since 08/2024. denies h/o substance use Tx. UTOX OPIATE, METHADONE, FENTANYL POS Trauma History: Denies Precis: 12/02: continue home medications. consider more aggressive anti-depressant treatment. allow some days to process behavior. dispo planning. 12/03: reports he feels improved. +anxiety. continue current mgmt. 6: continues improved. continue current mgmt. 12/05: continues improved. continue current mgmt. 12/06: feeling well. denies safety concerns. discharge to home tomorrow. 12/07: stable and safe overnight. discharged to outpt F/U as per plan. Time Spent with Patient Time attestation: Total time managing care of this patient today __35__ minutes. Discharge Plan Discharge Anticipated Discharge Date/Time: 12/07/24 11:00 Patient Disposition: Home, Self-Care Discharge Diagnosis: Bipolar I Disorder Opioid Use Disorder Cognitive Impairment Referrals: Dr. Evelia Chapa (Therapy) [Other] - 12/14/24 9:30 am Referral Note: IN OFFICE APPOINTMENTS -You have weekly appointments on 12/14, 12/21 and 12/28. Psychiatry [Other] - 12/21/24 1:00 pm Referral Note: IN OFFICE APPOINTMENT [facility] [Primary Care Provider, Primary Care] - 1 Week Discharge Medications: New acetaminophen 325 mg Tablet 650 mg PO Q6H PRN (Reason: Headache/Pain, Scale 1-10) 15 Days Qty: 120 1RF naloxone [Narcan] 4 mg/actuation spray,non-aerosol 4 mg intranasal Q2M PRN (Reason: opioid overdose) 1 Days Qty: 2 0RF Rx Instructions: spray 1 dose into ONE nostril; alternate nostrils w each dose until help arrives Continued magnesium oxide 420 mg Tablet 420 mg PO DAILY 30 Days Qty: 30 0RF calcium carbonate-vitamin D3 500 mg-3.125 mcg (125 unit) Tablet 1 tab PO BID 30 Days Qty: 60 0RF melatonin 5 mg Tablet 5 mg PO BEDTIME PRN (Reason: Sleep) 30 Days Qty: 30 0RF meloxicam 15 mg Tablet 7.5 mg PO DAILY cyanocobalamin (vitamin B-12) 1,000 mcg Tablet 1,000 mcg PO DAILY amitriptyline 10 mg Tablet 20 mg PO BEDTIME gabapentin 300 mg Capsule 900 mg PO BID@0800,1200 gabapentin 300 mg Capsule 1,200 mg PO BEDTIME divalproex 250 mg tablet extended release 24 hr 1,250 mg PO BEDTIME vitamin E (dl, acetate) 45 mg (100 unit) Capsule 45 mg PO DAILY cholecalciferol (vitamin D3) [Vitamin D3] 50 mcg (2,000 unit) Tablet 50 mcg PO DAILY sennosides-docusate sodium [Senna Plus] 8.6-50 mg tablet 2 tab PO BEDTIME PRN (Reason: Constipation) quetiapine [Seroquel] 100 mg Tablet 100 mg PO BEDTIME famotidine 20 mg tablet 20 mg PO DAILY@0630 alendronate 70 mg tablet 70 mg PO MO@0900 memantine 5 mg Tablet 5 mg PO BID Discharge Orders: Discharge Order (Routine); Ordered 12/07/24 Ordered By: Rojas Rojas Diet: Advance to usual diet Activity on Discharge: As tolerated Stand Alone Forms: Patient Portal Discharge page, Community Support Print Language: Moldovan Care Plan Goals: remain safe, stable, and sober in the outpatient treatment setting Health Concerns: chronic pain syndrome Plan of Treatment: take medications as prescribed, attend appointments as scheduled Assessment: not at imminent risk of harm to self or others Discharge Date/Time: 12/07/24 11:11
[2024-12-06 20:00] VITALS: BP 156/74; PULSE 80; RESP 16; TEMP 36.1; O2SAT 97
[2024-12-06] MEDS: Divalproex Sodium ER 250 MG TAB.ER.24H 1250 MG PO (21:52)
[2024-12-07 07:30] VITALS: BP 168/70; PULSE 59; RESP 16; TEMP 36.4; O2SAT 96
[2024-12-07] MEDS: Calcium + Vitamin D 250 MG TABLET 500 MG PO (08:28)
== END 2024-12-07 11:11 | disposition home or self-care (01) | DRG 885 ==
LOC: HO.ED 12-01 00:26 → HO.PADLT16 12-01 20:32
PROVIDERS: Admitting Provider Psychiatry & Neurology Psychiatry; Emergency Provider Emergency Medicine; PCP Dentist General Practice; Visit Provider Psychiatry & Neurology Psychiatry
DX: F31.9 Bipolar disorder, unspecified (principal); F17.210 Nicotine dependence, cigarettes, uncomplicated; Z71.6 Tobacco abuse counseling; F11.90 Opioid use, unspecified, uncomplicated; R41.89 Other symptoms and signs involving cognitive functions and awareness; T40.412A Poisoning by fentanyl or fentanyl analogs, intentional self-harm, initial encounter; Z79.899 Other long term (current) drug therapy
CPT/HCPCS: 36415; 71045; 80048; 80076; 80143; 80164; 80179; 80307; 81003; 82550; 83735; 85025; 93005; 99285; S9485

== ENCOUNTER → 2024-11-30 23:06 | Outpatient (BNV) | payer MEDICARE, SELFPAY | PROVIDERS: Emergency Provider Emergency Medicine; PCP Dentist General Practice; Visit Provider Internal Medicine Cardiovascular Disease | DX: T40.412A Poisoning by fentanyl or fentanyl analogs, intentional self-harm, initial encounter (principal) | CPT/HCPCS: 93010 ==

== ENCOUNTER → 2024-11-30 23:33 | Outpatient (BNV) | payer MEDICARE, SELFPAY | PROVIDERS: Emergency Provider Emergency Medicine; PCP Dentist General Practice; Visit Provider Radiology Diagnostic Radiology | DX: I46.9 Cardiac arrest, cause unspecified (principal) | CPT/HCPCS: 71045 ==

== ENCOUNTER → 2024-12-01 16:25 | Outpatient (BNV) | payer MEDICARE, SELFPAY | PROVIDERS: Admitting Provider Psychiatry & Neurology Psychiatry; Emergency Provider Emergency Medicine; PCP Dentist General Practice; Visit Provider Psychiatry & Neurology Psychiatry | DX: F31.4 Bipolar disorder, current episode depressed, severe, without psychotic features (principal); R41.89 Other symptoms and signs involving cognitive functions and awareness; F11.90 Opioid use, unspecified, uncomplicated | CPT/HCPCS: 90792; 99231 ==

== ENCOUNTER 2024-12-17 09:17 | Inpatient (IN) | payer MEDICARE, SELFPAY ==
[2024-12-17] VITALS (32 sets, daily range): BP systolic 81–161; BP diastolic 50–99; PULSE 74–119; RESP 16–50; TEMP 34–38; O2SAT 92–98; BMI 24.9
--- NOTE | ~2024-12-17 | XR_ITS ---
CLINICAL HISTORY: OGT placement 1 view chest x-ray Comparison: CR - XR CHEST 1V - 12/17/24 10:38 EDT Findings: Status post intubation. The tip of enteric tube is overlying the stomach. There is opacity of the right lower lung. Normal size heart. No acute fracture. IMPRESSION: The distal tip of enteric tube is overlying the stomach. The side bore is slightly below the EG junction. Advancement is recommended. This document has been electronically signed by: Teresa Barber MD on 12/17/2024 13:25:50
--- NOTE | ~2024-12-17 | XR_ITS ---
CLINICAL HISTORY: sob 1 view chest Comparison: 11/30/2024 Findings: Cardiac and mediastinal contours are normal. Similar-appearing chronic interstitial prominence with scattered peribronchial thickening. No focal consolidation. No effusion. No pneumothorax. No acute osseous finding. Impression: Similar-appearing chronic interstitial prominence with scattered peribronchial thickening. No focal consolidation. This document has been electronically signed by: Kj Guadarrama MD on 12/17/2024 10:18:04
--- NOTE | ~2024-12-17 | XR_ITS ---
CLINICAL HISTORY: Post intubation 1 view chest x-ray Comparison: CR - XR CHEST 1V - 12/17/24 09:37 EDT Findings: Hazy perihilar opacities, prominent pulmonary vasculature and peribronchial thickening again seen. No pleural effusion or pneumothorax. Interval intubation, the tip of the endotracheal tube is 6.2 cm above the get. Normal size heart. No acute fracture. IMPRESSION: 1. ETT tip is 6.2 cm above the get. 2. Hazy perihilar opacities suggesting mild pulmonary edema. This document has been electronically signed by: Natalio Trevizo MD on 12/17/2024 11:12:02
--- NOTE | 2024-12-17 09:25 | ECG_ITS ---
Test Reason : UNRESPONSIVE Blood Pressure : */* mmHG Vent. Rate : 114 BPM Atrial Rate : 114 BPM P-R Int : 136 ms QRS Dur : 74 ms QT Int : 318 ms P-R-T Axes : 68 41 50 degrees QTcB Int : 438 ms Artifact in tracing Sinus tachycardia Otherwise normal ECG When compared with ECG of 30-Nov-2024 23:11, Nonspecific T wave abnormality no longer evident in Inferior leads Referred By: Bogdan Celis Electronically Signed By: SELVIN RICHARDSON
[2024-12-17 09:48] LABS: ABG HCO3 21 mmol/L (22-26); ABG O2 % Saturation 95.0 %
[2024-12-17 09:49] LABS: MANUAL DIFF FLAG NO
[2024-12-17 09:55] LABS: ABG Refer to POC result
[2024-12-17 10:00] LABS: Glucose, Whole Blood 124 mg/dL (60-115)
[2024-12-17] MEDS: Albuterol/Iprat 2.5/0.5MG 3 ML AMPUL.NEB INHALE (10:05)
[2024-12-17] MEDS: Furosemide 20 MG/2 ML VIAL IVPUSH (10:05)
[2024-12-17] MEDS: Magnesium Sulfate/H2O 2 GM/50 ML PIGGYBACK IV (10:06)
[2024-12-17 10:11] LABS: Alanine Aminotransferase 13 U/L (0-40); Albumin Level 4.4 g/dL (3.5-5.0); Alkaline Phosphatase 65 U/L (39-117); Anion Gap 23 (12-20); Aspartate Amino Transferase 58 U/L (5-37); Blood Urea Nitrogen 25 mg/dL (9-16); Calcium 9.3 mg/dL (8.4-10.2); Carbon Dioxide 19 mmol/L (22-29); Chloride 107 mmol/L (96-108); Creatinine Clr Calc Pharmacy 25.6; Estimated Glomerular Filt Rate 28; Hematocrit 35.8 % (42.0-52.0); Hemoglobin 11.0 g/dl (14.0-18.0); Imm Gran Abs Auto 0.91 X10*3/uL (0.00-0.03); Imm Gran Pct Auto 4.6 % (0.0-0.4); Lipase 23 U/L (8-78); Lymphocytes Absolute Auto 2.1 X10*3/uL (1.2-4.9); Mean Corpuscular HGB Conc 30.7 g/dl (31.0-36.0); Mean Corpuscular Hemoglobin 28.5 pg (27.0-33.0); Mean Corpuscular Volume 92.7 fL (80.0-98.0); NRBC Abs Auto 0.000 X10*3/uL (0.0-0.012); NRBC Pct Auto 0.0 /100WBC (0.0-0.2); Platelet Count 363 X10*3/uL (160-400); Potassium 6.3 mmol/L (3.3-5.1); Red Blood Count 3.86 X10*6/uL (4.60-5.80); Sodium 143 mmol/L (135-145); Total Protein 8.8 g/dL (6.5-8.0); White Blood Count 20.0 X10*3/uL (4.8-10.8)
--- NOTE | 2024-12-17 10:11 | PC.RT ---
Pt came in via EMS for possible overdose, now minimal responsiveness. L/s bilateral rhonchi w/ wheezing. Pt was NT suctioned and moderate amounts of thick, white frothy secretions were suctioned out. Pt on 6L NC STs 94% RR 50 HR 115. Pt was given Duoneb tx per MD order. ABG was drawn and pt was placed on bipap however shortly after was intubated per MD order. Pt was intubated on first attempt w/o difficultly, top dentures were taken out. 7.5 ETT 22cm@lip secured and confirmed w/ colormetric CO2, quantitative CO2 monitoring, condensation in tube, bilateral chest rise, and pending XRay. Pt placed on mechanical ventilation and jude well at this time. 10mg Albuterol given inline for high potassium. Will continue to monitor.
[2024-12-17 10:13] LABS: B Type Natriuretic Peptide 244 pg/mL (<100)
[2024-12-17 10:16] LABS: Troponin-I High Sensitivity 99.6 ng/L (<3.5-35.0)
[2024-12-17] MEDS: Albumin Human 25 % 100 ML 133.33 ML IV ×2 (10:23→12:27)
[2024-12-17] MEDS: Calcium Gluconate/NaCl,Iso-Osm 1 GM/50 ML PLAST..BAG IV (10:23)
[2024-12-17] MEDS: Albuterol Sulfate 7.5 MG, Albuterol Sulfate (0.083%) 2.5 MG 10 MG INHALE (10:29)
[2024-12-17 10:39] LABS: ABG HCO3 21 mmol/L (22-26); ABG O2 % Saturation 91.0 %
[2024-12-17 10:40] LABS: Resp Syncy Virus RNA Qual PCR NEGATIVE (Negative); SARS COV2 PCR INHOUSE NEGATIVE (Negative)
[2024-12-17 10:41] LABS: ABG Refer to POC result
--- NOTE | 2024-12-17 10:41 | ED.GENADULT ---
HPI - General Adult General Chief complaint: Upper Respiratory Symptoms Stated complaint: OVERDOSE Time Seen by Provider: 12/17/24 09:24 Source: EMS and old records reviewed Mode of arrival: EMS Limitations: altered mental status History of Present Illness ED Provider: DR. Celis HPI narrative: 74-year-old known history of opiate abuse, found by family unresponsive patient was given 4 mg Narcan by the police at the scene with no improvement then patient was given another 4 mg of Narcan by EMS and transported to the hospital, patient is partially responsive, in apparent respiratory distress, breathing 50 per minutes, patient was placed on BiPAP machine patient is breathing at 50 per minutes, patient is started to get tired working breathing therefore intubation was considered. Initial ABG showing slight metabolic acidosis, patient was intubated using propofol for sedation, that was replaced by ketamine seem working better for the patient. Patient is borderline hypotensive will consider Levophed drip if needed. Related Data Home Medications ?Medication ?Instructions ?Recorded ?Confirmed alendronate 70 mg tablet 70 mg PO MO@0900 11/18/22 12/17/24 famotidine 20 mg tablet 20 mg PO DAILY@0630 11/18/22 12/17/24 amitriptyline 10 mg tablet 20 mg PO BEDTIME 02/26/24 12/17/24 cholecalciferol (vitamin D3) 50 50 mcg PO DAILY 02/26/24 12/17/24 mcg (2,000 unit) tablet (Vitamin D3) cyanocobalamin (vitamin B-12) 1,000 mcg PO DAILY 02/26/24 12/17/24 1,000 mcg tablet divalproex 250 mg tablet,extended 1,250 mg PO BEDTIME 02/26/24 12/17/24 release 24 hr gabapentin 300 mg capsule 1,200 mg PO BEDTIME 02/26/24 12/17/24 gabapentin 300 mg capsule 900 mg PO BID@0800,1200 02/26/24 12/17/24 meloxicam 15 mg tablet 7.5 mg PO DAILY 02/26/24 12/17/24 sennosides 8.6 mg-docusate sodium 2 tab PO BEDTIME PRN Constipation 02/26/24 12/17/24 50 mg tablet (Senna Plus) vitamin E (dl, acetate) 45 mg (100 45 mg PO DAILY 02/26/24 12/17/24 unit) capsule quetiapine 100 mg tablet (Seroquel) 100 mg PO BEDTIME 07/06/24 12/17/24 memantine 5 mg tablet 5 mg PO BID 12/01/24 12/17/24 Previous Rx's ?Medication ?Instructions ?Recorded calcium 500 mg (as 1 tab PO BID 30 days #60 tabs 01/22/22 carbonate)-vitamin D3 3.125 mcg (125 unit) tablet magnesium oxide 420 mg tablet 420 mg PO DAILY 30 days #30 tabs 01/22/22 melatonin 5 mg tablet 5 mg PO BEDTIME PRN Sleep 30 days 01/22/22 #30 tabs acetaminophen 325 mg tablet 650 mg (2 x 325 mg) PO Q6H PRN 12/06/24 Headache/Pain, Scale 1-10 15 days #120 tabs naloxone 4 mg/actuation nasal 4 mg intranasal Q2M PRN opioid 12/06/24 spray (Narcan) overdose 1 day #2 ea Allergies Allergy/AdvReac Type Severity Reaction Status Date / Time No Known Allergies (No Known Allergy Verified 12/17/24 10:09 Allergies*) Review of Systems Review of Systems: Yes unobtainable due to endotracheal tube PMFSH Past Medical History Medical History Drug overdose Opioid use disorder, severe, on maintenance therapy Social History Social History Household Members: Unknown / Unable to assess Household Members Other:: Son Housing: Unknown / Unable to assess Do you presently have visiting nurse or other home services: No Unable to assess alcohol history related to: Unknown Alcohol intake: current Alcohol intake frequency: does not drink Patient Tobacco Use Status: Tobacco use Unknown Tobacco use type: Cigarette Cigarette Packs Per Day: 0.5 Cigarettes Per Day: 10.0 Years Smoked: 50 e-Cigarette/Vaping Use: Never Used Second Hand Smoke Exposure: Yes Substance Use Type: Crack/Cocaine, Heroin and Marijuana Advance Directives: Yes Advance Directives Information Provided: No Advance Directives on File: No Advance Directives Date on File: 12/17/24 Do you have a plan to hurt others: No Plan service: Yes ([employer]) Sexual orientation: Straight/Heterosexual Physical Exam ED Vital Signs: Vital Signs - 24 hr 12/17/24 10:00 12/17/24 10:05 12/17/24 10:06 Pulse Rate 118 H Respiratory Rate 30 H Blood Pressure 136/61 137/67 Pulse Oximetry 98 Oxygen Delivery Method Mechanical Ventilation Fraction of Inspired Oxygen 40 12/17/24 10:07 12/17/24 10:09 Pulse Rate 119 H 115 H Respiratory Rate 40 H 50 H Blood Pressure 130/67 Pulse Oximetry 96 Oxygen Delivery Method Non-Rebreather Mask Fraction of Inspired Oxygen BMI result Body Mass Index 24.9 Vital signs have been reviewed and appear to be correct. Blood pressure elevated. Heart rate normal. Respiratory rate normal. Temperature normal. Oxygen saturation normal. Appearance: Somnolent, in acute respiratory distress Head: Normal external exam. Normocephalic. Atraumatic. No Aguilar signs noted. No raccoon eyes noted Eyes: PERRLA. EOMI. Conjunctiva and sclera normal. Eyelids normal. ENT: TM's Normal. Pharynx normal. Uvula midline. Moist mucous membranes. No trismus noted. No drooling noted. No muffled voice noted. Neck: Normal inspection. Neck supple. FROM. No adenopathy. Thyroid Normal. No meningeal signs. No neck mass noted. CVS: Normal heart rate and rhythm. Heart sound normal. No murmurs noted. Pulses normal throughout. Respiratory: No respiratory distress. Painless inspiration. Decreased breathing sound, mix of rales up to have lower lung feels and diffuse expiratory mild wheezing. No accessory muscle usage noted or decreased air movement noted. Abdomen: Soft and nontender. Bowel sounds normal in all 4 quadrants. No distention noted. No organomegaly noted. No visible injury noted. Back: No CVA tenderness. Full range of motion noted. Skin: Skin warm and dry. Normal skin color. Normal skin turgor. No rashes/lesions/lacerations noted. Extremities: No lower extremity edema. Extremities exhibit normal range of motion. Extremities nontender. Neuro: Somnolent. Cranial nerve exam: II-XII are grossly intact No motor deficit. No sensory deficit. Reflexes normal. Course Reevaluation(s) Reevaluation #1: Opiate overdose. 1. Pulmonary edema induced by 8 mg of Narcan. Patient require BiPAP/intubation continue supporting breathing, patient is doing better with ketamine sedation. 2. Aspiration pneumonia with sepsis patient is covered with Zosyn for broad-spectrum antibiotic. 3. Continue with mechanical ventilation post intubation ABG has improved. 4. Hyperkalemia patient received bicarb/calcium/albuterol/Lokelma will recheck potassium. 5. Admit to ICU case discussed with Dr. Gavin. Time: 10:54 Reevaluation #2: FOCUSED EXAM: Focused exam is completed now, patient feels better, patient is in Narcan induced pulmonary edema received 2 boluses of 200 cc of albumin at rate of 133 mL/hour. Patient with better sedation on ketamine. VSS. Time: 11:30 Medications Administered Generic Name Dose Route Start Last Admin Trade Name Freq PRN Reason Stop Dose Admin Heparin Sodium (Porcine) 5,000 unit 12/17/24 11:00 12/17/24 13:03 Heparin Sodium,Porcine 5,000 Unit/Ml Vial SUBCUT 5,000 unit Q8H ELISAEBT Administration Ketamine HCl 500 mg/ Sodium 255 mls @ 1.788 mls/hr 12/17/24 10:45 12/17/24 12:58 Chloride IVCONT Infused .Q24H ELISABET Infusion Protocol 0.05 MG/KG/HR Valproic Acid 500 mg/ Dextrose 55 mls @ 55 mls/hr 12/17/24 11:00 12/17/24 13:27 IV 55 mls/hr Q8H ELISABET Administration Levofloxacin 750 mg in 150 mls @ 100 mls/hr 12/17/24 12:00 12/17/24 13:28 Levaquin IV 100 mls/hr Q48H ELISABET Administration Propofol 1,000 mg in 100 mls @ 0 mls/hr 12/17/24 13:00 12/17/24 13:03 Diprivan IVCONT 30 mcg/kg/min .Q0M ELISABET 12.62 mls/hr Protocol Administration Per Protocol Fentanyl 1,000 mcg in 100 mls @ 0 mls/hr 12/17/24 13:00 12/17/24 13:03 Sublimaze/Ns IVCONT 50 mcg/hr .Q0M ELISABET 5 mls/hr Protocol Administration Per Protocol Discontinued Medications Generic Name Dose Route Start Last Admin Trade Name Freq PRN Reason Stop Dose Admin Albuterol Sulfate 7.5 mg/ 10 mg 12/17/24 10:15 12/17/24 10:29 Albuterol Sulfate 2.5 mg INHALE 12/17/24 10:16 10 mg ONCE ONE Administration Albuterol/Ipratropium 3 ml 12/17/24 09:48 12/17/24 10:05 Albuterol/Iprat 2.5/0.5mg 3 Ml Ampul.Neb INHALE 12/17/24 09:49 3 ml ONCE ONE Administration Furosemide 20 mg 12/17/24 09:25 12/17/24 10:05 Furosemide 20 Mg/2 Ml Vial IVPUSH 12/17/24 09:26 20 mg ONCE ONE Administration Protocol Magnesium Sulfate 2 gm in 50 mls @ 25 mls/hr 12/17/24 09:29 12/17/24 11:10 Magnesium Sulfate/H2o IV 12/17/24 11:28 Infused ONCE ONE Infusion Piperacillin Sod/Tazobactam 50 mls @ 100 mls/hr 12/17/24 09:47 12/17/24 12:44 Sod 3.375 gm/ Sodium Chloride IV 12/17/24 10:16 Infused ONCE ONE Infusion Propofol 1,000 mg in 100 mls @ 0 mls/hr 12/17/24 10:00 12/17/24 13:48 Diprivan IVCONT Infused .Q0M ELISABET Titration Protocol Per Protocol Albumin Human 100 mls @ 133.333 mls/hr 12/17/24 10:15 12/17/24 13:48 Kedbumin 25 % IV 12/17/24 11:59 Infused Q1H ELISABET Infusion Calcium Gluconate 1 gm in 50 mls @ 50 mls/hr 12/17/24 10:11 12/17/24 11:54 Calcium Gluconate IV 12/17/24 11:10 Infused ONCE ONE Infusion Ketamine HCl 50 mg 12/17/24 10:39 12/17/24 11:10 Ketamine Hcl 200 Mg/20 Ml Vial IVPUSH 12/17/24 10:40 50 mg ONCE STA Administration Ketamine HCl 25 mg 12/17/24 10:50 12/17/24 10:50 Ketamine Hcl/Ns 100 Mg/10 Ml Syringe IVPUSH 12/17/24 10:51 25 mg ONCE STA Administration Ketamine HCl 50 mg 12/17/24 10:46 12/17/24 10:46 Ketamine Hcl 500 Mg/5 Ml Vial IVPUSH 12/17/24 10:47 50 mg ONCE ONE Administration Methylprednisolone Sodium Succinate 125 mg 12/17/24 09:29 12/17/24 09:45 Methylprednisolone Sod Succ 125 Mg/2 Ml Vial IVPUSH 12/17/24 09:30 125 mg ONCE ONE Administration Nitroglycerin 0.5 inch 12/17/24 09:25 12/17/24 11:09 Nitroglycerin 2 % Oint 1 Gm Packet TRANSDERMA 12/17/24 09:26 Not Given ONCE ONE Propofol 25 mg 12/17/24 09:59 12/17/24 09:59 Propofol 200 Mg/20 Ml Vial IVPUSH 12/17/24 10:00 25 mg ONCE ONE Administration Propofol 25 mg 12/17/24 10:03 12/17/24 10:03 Propofol 200 Mg/20 Ml Vial IVPUSH 12/17/24 10:04 25 mg ONCE ONE Administration Rocuronium [place] 10 mg 12/17/24 11:24 12/17/24 11:34 Rocuronium [place] 50 Mg/5 Ml Vial IVPUSH 12/17/24 11:25 10 mg ONCE ONE Administration Sodium Bicarbonate 50 meq 12/17/24 10:11 12/17/24 10:23 Sodium Bicarbonate 8.4% 50 Meq/50 Ml Syringe IVPUSH 12/17/24 10:12 50 meq ONCE ONE Administration Sodium Zirconium Cyclosilicate 5 gm 12/17/24 10:11 12/17/24 14:00 Sodium Zirconium Cyclosilicate 5 Gm Powd.Pack PO 12/17/24 10:12 5 gm ONCE ONE Administration Succinylcholine Chloride 100 mg 12/17/24 10:54 12/17/24 09:54 Succinylcholine Chloride 200 Mg/10 Ml Vial IVPUSH 12/17/24 10:55 100 mg ONCE ONE Administration Procedures Intubation Intubation Type:: Emergency Endotracheal Intubation Intubation Date:: 12/17/24 Intubation Time:: 10:00 Time out performed: Yes sedative: Ketamine Mg Given: 50 paralytic: Succinylcholine Mg Given: 100 Laryngoscope: Adan ET Tube Size: 7.5 ET Tube Uncuffed: No Tube Secured Depth (cm): 22 Tube Secured Location: lips Tube Placement Confirmation: visualized tube passing through cords, equal breath sounds bilaterally, no breath sounds over epigastrium and confirmation by capnometry Intubation Complications: none Medical Decision Making Differential Diagnosis Differential Diagnoses: The differential diagnosis associated with the presentation includes (Acute respiratory failure, aspiration pneumonia, electrolyte derangement, TONY, ACS, pulmonary edema, severe anemia.) Admission/Observation Consideration of admission/observation: Escalation of care including admission/observation considered Consult Healthcare Provider Management of the patient was discussed with: Ironing Worker (Dr. Gavin.) Lab Data MDM Lab Attestation statement: I reviewed the patient's lab results. 12/17/24 09:40 12/17/24 09:40 Labs: Lab Results 12/17/24 12/17/24 12/17/24 Range/Units 09:40 09:42 09:44 WBC 20.0 H (4.8-10.8) X10*3/uL RBC 3.86 L (4.60-5.80) X10*6/uL Hgb 11.0 L (14.0-18.0) g/dl Hct 35.8 L (42.0-52.0) % MCV 92.7 (80.0-98.0) fL MCH 28.5 (27.0-33.0) pg MCHC 30.7 L (31.0-36.0) g/dl RDW 15.6 (11.0-16.0) % Plt Count 363 D (160-400) X10*3/uL MPV 10.1 (9.4-12.4) fL Immature Gran % (Auto) 4.6 H (0.0-0.4) % Neut % (Auto) 77.4 H (45-73) % Lymph % (Auto) 10.3 L (20-40) % [place] % (Auto) 7.0 (2-11) % Eos % (Auto) 0.1 (0-4) % Baso % (Auto) 0.6 (0-2) % Lymph # (Auto) 2.1 (1.2-4.9) X10*3/uL [place] # (Auto) 1.4 H (0.1-1.2) X10*3/uL Eos # (Auto) 0.0 (0.0-0.4) X10*3/uL Baso # (Auto) 0.1 (0.0-0.2) X10*3/uL Abs Immat Gran (auto) 0.91 H (0.00-0.03) X10*3/uL Absolute Neuts (auto) 15.5 H (2.0-8.3) x10*3/uL Absolute Nucleated RBC 0.000 (0.0-0.012) X10*3/uL Nucleated RBC % (auto) 0.0 (0.0-0.2) /100WBC Hold Blue Top SEE NOTE O2 Saturation 95.0 % ABG pH at Pt Temp 7.27 L (7.35-7.45) ABG pCO2 at Pt Temp 45 (32-45) mmHg ABG pO2 at Pt Temp 81 L (83-108) mmHg ABG HCO3 21 L (22-26) mmol/L ABG Base Excess (Actual) -5.1 mmol/L Sodium 143 (135-145) mmol/L Potassium 6.3 H* D (3.3-5.1) mmol/L Chloride 107 (96-108) mmol/L Carbon Dioxide 19 L (22-29) mmol/L Anion Gap 23 H (12-20) BUN 25 H (9-16) mg/dL Creatinine 2.28 H (0.5-1.4) mg/dL Estim Creat Clear Calc 25.6 Estimated GFR 28 POC Glucose (60-115) mg/dL Random Glucose 118 H (60-115) mg/dL Lactic Acid 4.8 H* (0.5-2.0) mmol/L Calcium 9.3 (8.4-10.2) mg/dL Total Bilirubin 0.2 (0.0-1.0) mg/dL Direct Bilirubin < 0.2 (0.0-0.5) mg/dL AST 58 H (5-37) U/L ALT 13 (0-40) U/L Alkaline Phosphatase 65 (39-117) U/L Troponin I High Sens 99.6 H D (<3.5-35.0) ng/L B-Natriuretic Peptide 244 H (<100) pg/mL Total Protein 8.8 H (6.5-8.0) g/dL Albumin 4.4 (3.5-5.0) g/dL Lipase 23 (8-78) U/L Hold Yellow Top Cancelled Influenza Type A (PCR) NEGATIVE (Negative) Influenza Type B (PCR) NEGATIVE (Negative) RSV RNA Qual (PCR) NEGATIVE (Negative) SARS-CoV-2 RNA (RT-PCR) NEGATIVE (Negative) 12/17/24 12/17/24 Range/Units 09:55 10:35 WBC (4.8-10.8) X10*3/uL RBC (4.60-5.80) X10*6/uL Hgb (14.0-18.0) g/dl Hct (42.0-52.0) % MCV (80.0-98.0) fL MCH (27.0-33.0) pg MCHC (31.0-36.0) g/dl RDW (11.0-16.0) % Plt Count (160-400) X10*3/uL MPV (9.4-12.4) fL Immature Gran % (Auto) (0.0-0.4) % Neut % (Auto) (45-73) % Lymph % (Auto) (20-40) % [place] % (Auto) (2-11) % Eos % (Auto) (0-4) % Baso % (Auto) (0-2) % Lymph # (Auto) (1.2-4.9) X10*3/uL [place] # (Auto) (0.1-1.2) X10*3/uL Eos # (Auto) (0.0-0.4) X10*3/uL Baso # (Auto) (0.0-0.2) X10*3/uL Abs Immat Gran (auto) (0.00-0.03) X10*3/uL Absolute Neuts (auto) (2.0-8.3) x10*3/uL Absolute Nucleated RBC (0.0-0.012) X10*3/uL Nucleated RBC % (auto) (0.0-0.2) /100WBC Hold Blue Top O2 Saturation 91.0 % ABG pH at Pt Temp 7.37 (7.35-7.45) ABG pCO2 at Pt Temp 36 (32-45) mmHg ABG pO2 at Pt Temp 66 L (83-108) mmHg ABG HCO3 21 L (22-26) mmol/L ABG Base Excess (Actual) -2.9 mmol/L Sodium (135-145) mmol/L Potassium (3.3-5.1) mmol/L Chloride (96-108) mmol/L Carbon Dioxide (22-29) mmol/L Anion Gap (12-20) BUN (9-16) mg/dL Creatinine (0.5-1.4) mg/dL Estim Creat Clear Calc Estimated GFR POC Glucose 124 H (60-115) mg/dL Random Glucose (60-115) mg/dL Lactic Acid (0.5-2.0) mmol/L Calcium (8.4-10.2) mg/dL Total Bilirubin (0.0-1.0) mg/dL Direct Bilirubin (0.0-0.5) mg/dL AST (5-37) U/L ALT (0-40) U/L Alkaline Phosphatase (39-117) U/L Troponin I High Sens (<3.5-35.0) ng/L B-Natriuretic Peptide (<100) pg/mL Total Protein (6.5-8.0) g/dL Albumin (3.5-5.0) g/dL Lipase (8-78) U/L Hold Yellow Top Influenza Type A (PCR) (Negative) Influenza Type B (PCR) (Negative) RSV RNA Qual (PCR) (Negative) SARS-CoV-2 RNA (RT-PCR) (Negative) Independent Interpretation I performed an independent interpretation of an: Plain X-Ray (chest: Right lower lobe pneumonia) Radiology Impression Discussion of test interpretation with radiology: I have reviewed the radiologist's reading. Critical Care Time Critical Care Time Total Critical Care Time: 60 Attestation: The patient was critically ill with a high probability of imminent or life-threatening deterioration. I spent greater than 30 minutes of discontinuous time evaluating the patient, delivering critical care at the bedside, discussing evaluating data with consultants. Critical care time does not include time spent performing separately billable procedures or teaching. Time spent performing critical care was 60 minutes. Discharge Plan Discharge Clinical Impression: Opioid use disorder, Aspiration pneumonia, Septic shock, Acute hypoxemic respiratory failure, Acute hyperkalemia Patient Disposition: Admitted As Inpatient Interventions: Admission Worksheet (ED) Last Done: 12/17/24 12:56 Discharge Date/Time: 12/17/24 12:56
[2024-12-17] MEDS: Ketamine HCl/NS 100 MG/10 ML SYRINGE 25 MG IVPUSH (10:50)
--- NOTE | 2024-12-17 10:56 | PM.CCHP ---
History of Present Illness Date of Service: 12/17/24 Chief Complaint: Altered mental status, respiratory distress 74-year-old gentleman with underlying polysubstance abuse presented by EMS for evaluation of unresponsiveness and respiratory distress. On ER evaluation with respiratory distress with poor response to initial BiPAP support requiring intubation and ventilatory support. Also noted to have acute renal failure with metabolic acidosis and hyperkalemia. Admitted to the intensive care unit. Review of Systems Review of Systems: Yes unobtainable due to endotracheal tube, Unobtainable due to mental condition and Unobtainable due to mental status PMFSH Past Medical History Medical History Drug overdose Opioid use disorder, severe, on maintenance therapy Social History Social History Household Members: Children and Friend(s) Household Members Other:: Son Housing: House Do you presently have visiting nurse or other home services: No Unable to assess alcohol history related to: Unknown Alcohol intake: current Alcohol intake frequency: does not drink Patient Tobacco Use Status: Current everyday Tobacco user Tobacco use type: Cigarette Cigarette Packs Per Day: 0.5 Cigarettes Per Day: 10.0 Years Smoked: 50 e-Cigarette/Vaping Use: Never Used Second Hand Smoke Exposure: Yes Substance Use Type: Crack/Cocaine, Heroin and Marijuana Advance Directives: Yes Advance Directives Information Provided: No Advance Directives on File: No service: Yes ([employer]) Sexual orientation: Straight/Heterosexual Meds Allergies Allergy/AdvReac Type Severity Reaction Status Date / Time No Known Allergies (No Known Allergy Verified 12/17/24 10:09 Allergies*) Active Medications: Current Medications Heparin Sodium (Porcine) (Heparin Sodium,Porcine 5,000 Unit/Ml Vial) 5,000 unit SUBCUT Q8H ELISABET Magnesium Sulfate (Magnesium Sulfate/H2o) 2 gm in 50 mls @ 25 mls/hr IV ONCE ONE Stop: 12/17/24 11:28 Last Admin: 12/17/24 10:06 Dose: 25 mls/hr Propofol (Diprivan) 1,000 mg in 100 mls @ 0 mls/hr IVCONT .Q0M ELISABET; Protocol Last Admin: 12/17/24 10:06 Dose: 50 mcg/kg/min, 21.03 mls/hr Albumin Human (Kedbumin 25 %) 100 mls @ 133.333 mls/hr IV Q1H ELISABET Stop: 12/17/24 11:59 Last Admin: 12/17/24 10:23 Dose: 133.33 mls/hr Norepinephrine Bitartrate (Levophed) 8 mg in 250 mls @ 0 mls/hr IVCONT .Q0M ELISABET; Protocol Calcium Gluconate (Calcium Gluconate) 1 gm in 50 mls @ 50 mls/hr IV ONCE ONE Stop: 12/17/24 11:10 Last Admin: 12/17/24 10:23 Dose: 50 mls/hr Ketamine HCl 500 mg/ Sodium (Chloride) 255 mls @ 1.788 mls/hr IVCONT .Q24H ELISABET; Protocol Valproic Acid 500 mg/ Dextrose 55 mls @ 55 mls/hr IV Q8H ELISABET Home Medications ?Medication ?Instructions ?Recorded ?Confirmed ?Last Taken ?Type alendronate 70 mg tablet 70 mg PO MO@0900 11/18/22 12/01/24 02/22/24 History famotidine 20 mg tablet 20 mg PO DAILY@0630 11/18/22 12/01/24 02/25/24 History amitriptyline 10 mg tablet 20 mg PO BEDTIME 02/26/24 12/01/24 02/25/24 History cholecalciferol (vitamin D3) 50 50 mcg PO DAILY 02/26/24 12/01/24 02/25/24 History mcg (2,000 unit) tablet (Vitamin D3) cyanocobalamin (vitamin B-12) 1,000 mcg PO DAILY 02/26/24 12/01/24 02/25/24 History 1,000 mcg tablet divalproex 250 mg tablet,extended 1,250 mg PO BEDTIME 02/26/24 12/01/24 02/25/24 History release 24 hr gabapentin 300 mg capsule 1,200 mg PO BEDTIME 02/26/24 12/01/24 02/25/24 History gabapentin 300 mg capsule 900 mg PO BID@0800,1200 02/26/24 12/01/24 02/26/24 History meloxicam 15 mg tablet 7.5 mg PO DAILY 02/26/24 12/01/24 02/25/24 History sennosides 8.6 mg-docusate sodium 2 tab PO BEDTIME PRN Constipation 02/26/24 12/01/24 Unknown History 50 mg tablet (Senna Plus) vitamin E (dl, acetate) 45 mg (100 45 mg PO DAILY 02/26/24 12/01/24 02/25/24 History unit) capsule quetiapine 100 mg tablet (Seroquel) 100 mg PO BEDTIME 07/06/24 12/01/24 Unknown History memantine 5 mg tablet 5 mg PO BID 12/01/24 12/01/24 Unknown History Physical Exam Vital Signs: Vital Signs: Last Vital Signs Pulse 115 H 12/17/24 10:09 Resp 50 H 12/17/24 10:09 BP 130/67 12/17/24 10:07 Pulse Ox 96 12/17/24 10:07 O2 Del Method Non-Rebreather Ma sk 12/17/24 10:07 FiO2 40 12/17/24 10:06 BMI result Body Mass Index 24.9 Const: General: no acute distress and other (Sedated on ventilatory support) Eyes: Sclerae: sclerae normal EOM: EOMs intact bilaterally Neck: Neck: Yes no lymphadenopathy, Yes trachea midline and Yes supple Resp: Auscultation: crackles (Bilateral) Cardio: Rate: tachycardic Rhythm: regular rhythm Heart sounds: no gallops, no murmurs and no rubs GI: Palpation (GI): Soft to palpation and Other GI palpation findings present ( Nontender) Auscultation: normal bowel sounds Extrem: General: Yes no pedal edema, No clubbing and No cyanosis Results Labs 12/17/24 09:40 12/17/24 09:40 Labs: Laboratory Results - last 24 hr 12/17/24 12/17/24 12/17/24 09:40 09:42 09:44 MCV 92.7 MCH 28.5 MCHC 30.7 L RDW 15.6 Plt Count 363 D MPV 10.1 Immature Gran % (Auto) 4.6 H Neut % (Auto) 77.4 H Lymph % (Auto) 10.3 L [place] % (Auto) 7.0 Eos % (Auto) 0.1 Baso % (Auto) 0.6 Lymph # (Auto) 2.1 [place] # (Auto) 1.4 H Eos # (Auto) 0.0 Baso # (Auto) 0.1 Abs Immat Gran (auto) 0.91 H Absolute Neuts (auto) 15.5 H Absolute Nucleated RBC 0.000 Nucleated RBC % (auto) 0.0 Hold Blue Top SEE NOTE O2 Saturation 95.0 ABG pH at Pt Temp 7.27 L ABG pCO2 at Pt Temp 45 ABG pO2 at Pt Temp 81 L ABG HCO3 21 L ABG Base Excess (Actual) -5.1 Anion Gap 23 H Estim Creat Clear Calc 25.6 Estimated GFR 28 POC Glucose Random Glucose 118 H Lactic Acid 4.8 H* Calcium 9.3 Total Bilirubin 0.2 Direct Bilirubin < 0.2 AST 58 H ALT 13 Alkaline Phosphatase 65 B-Natriuretic Peptide 244 H Total Protein 8.8 H Albumin 4.4 Lipase 23 Hold Yellow Top Cancelled Influenza Type A (PCR) NEGATIVE Influenza Type B (PCR) NEGATIVE RSV RNA Qual (PCR) NEGATIVE SARS-CoV-2 RNA (RT-PCR) NEGATIVE 12/17/24 12/17/24 09:55 10:35 MCV MCH MCHC RDW Plt Count MPV Immature Gran % (Auto) Neut % (Auto) Lymph % (Auto) [place] % (Auto) Eos % (Auto) Baso % (Auto) Lymph # (Auto) [place] # (Auto) Eos # (Auto) Baso # (Auto) Abs Immat Gran (auto) Absolute Neuts (auto) Absolute Nucleated RBC Nucleated RBC % (auto) Hold Blue Top O2 Saturation 91.0 ABG pH at Pt Temp 7.37 ABG pCO2 at Pt Temp 36 ABG pO2 at Pt Temp 66 L ABG HCO3 21 L ABG Base Excess (Actual) -2.9 Anion Gap Estim Creat Clear Calc Estimated GFR POC Glucose 124 H Random Glucose Lactic Acid Calcium Total Bilirubin Direct Bilirubin AST ALT Alkaline Phosphatase B-Natriuretic Peptide Total Protein Albumin Lipase Hold Yellow Top Influenza Type A (PCR) Influenza Type B (PCR) RSV RNA Qual (PCR) SARS-CoV-2 RNA (RT-PCR) Assessment and Plan (1) Respiratory distress: Status: Acute (2) Acute kidney injury: Status: Acute (3) Pulmonary aspiration: Status: Acute (4) Hyperkalemia: Status: Acute (5) Metabolic acidosis: Status: Acute Plan Assessment: 74-year-old gentleman admitted with alteration of mental status and respiratory distress likely secondary to pulmonary aspiration on a background of polysubstance abuse. Plan: Neuro: No acute issues. Cardiac: May have component of pulmonary edema. 2D echocardiogram is pending. Pulmonary: Acute respiratory distress and hypoxia requiring intubation and ventilatory support, likely secondary to an aspiration event. Continue to titrate off ventilatory support as tolerated. Renal: Acute renal failure with hyperkalemia and metabolic acidosis. Continue to monitor renal indices and urine output. Endo: No acute issues. GI: No acute issues. ID: Empiric coverage for pulmonary aspiration. Heme/Onc: No acute issues. Psych: No acute issues. Miscellaneous: No acute issues. Prophylaxis: Heparin, ppi Diet: NPO Critical care time spent: 60 minutes
[2024-12-17] MEDS: Ketamine HCl 500 MG in 0.9 % Sodium Chloride 250 ML IVCONT (11:11)
[2024-12-17 11:48] LABS: Reflex Lactate? Lactic Acid Added
--- NOTE | 2024-12-17 12:22 | PHA.MEDREC ---
Addendum entered by Moni Delgado RPh 12/17/24 13:08: [facility] reviewed Original Note: Pharmacy Consult ? Medication Reconciliation Pharmacy has completed the medication reconciliation. Used DC papers from 12/06.
--- NOTE | 2024-12-17 12:43 | PC.NURSE ---
Pt came in having respiratory distress (see triage note); it was decided by MD to intubate; pt medicated at 0953 with IVP Ketamine and succ. per orders (see MAR); MD inserted a 7.5 ETT, 22 CM at the lip with + color change and confirmation via CXR; pt very difficult to sedate as he was bucking the tube and trying to breathe around it; pt initially on Propofol drip after 50mg total propofol bolus gv but was still fighting; vs remained stable throughout; pt gv 50mg IVP Ketamine bolus and Ketamine drip begun; pt titrated up to 0.5mg/kg/hr and still fighting the tube; pt given another 25 mg Ketamine IVP and then 10mg Rocuronium IVP; pt finally settled; 16FR temp-sensing FC inserted with 200mL clear yellow urine out; 14 FR OG tube inserted with + placement via auscultation and suctioning of stomach secretions; awaiting CXR for tube placement confirmation; telephone report given to NIKIA Peguero; care relinquished at this time; unable to transfer pt's monitor to ICU as someone dc'd the pt from the ER monitor before that could be done
[2024-12-17] MEDS: fentaNYL citrate/NS 1,000 MCG/100 ML PLAST..BAG 5 MCG IVCONT (13:03)
[2024-12-17 13:23] LABS: ~Lactic Acid-LAB USE ONLY 7.2 mmol/L (0.5-2.0)
[2024-12-17] MEDS: Valproic Acid (as Sodium Salt) 500 MG in Dextrose 5 % 50 ML 55 MG IV ×2 (13:27→20:02)
[2024-12-17 13:40] LABS: Appearance Urine Cloudy; Glucose Urine UA Negative (Negative); PH 5.5 (5.0-9.0); Specific Gravity - Urine 1.015 (1.005-1.025); UMIC TRIGGER UACC YES
[2024-12-17 13:55] LABS: Cannabinoid Screen Urine Not Detected (Not Detect)
--- NOTE | 2024-12-17 14:12 | PM.SEPSBOL4 ---
Sepsis Bolus Exclusion Sepsis Bolus Exclusion CHF/Renal Failure Date of Occurrence: 12/17/24 Time of Occurrence:: 12:00 This patient met severe sepsis criteria due to the following condition(s):: Lactate>=4mmol/L In my clinical judgement the administration of 30 ml/kg of crystalloid would be detrimental to this patient due to the patient's following conditions:: Concern for fluid overload Replace the 30 mls/kg with (Zero amount not acceptable and all fluids for severe sepsis must be given at GREATER than 125 mls/hr) *Note: One of the bird must be documented Colloids amount given in mls:: 200 At a rate of (must be > 125 cchr):: 133
[2024-12-17 14:53] LABS: Reflex Lactate? 2 Y
[2024-12-17 15:28] LABS: ~Lactic Acid-LAB USE ONLY 8.6 mmol/L (0.5-2.0)
[2024-12-17] MEDS: Albumin Human 25 % 50 ML 100 ML IV ×4 (19:50→21:29)
[2024-12-17 20:03] LABS: Anion Gap 18 (12-20); Blood Urea Nitrogen 27 mg/dL (9-16); Calcium 9.0 mg/dL (8.4-10.2); Carbon Dioxide 22 mmol/L (22-29); Chloride 107 mmol/L (96-108); Creatinine Clr Calc Pharmacy 32.8; Estimated Glomerular Filt Rate 38; Magnesium 2.5 mg/dL (1.6-2.6); Potassium 4.8 mmol/L (3.3-5.1); Sodium 142 mmol/L (135-145)
[2024-12-18] VITALS (37 sets, daily range): BP systolic 100–165; BP diastolic 53–83; PULSE 18–89; RESP 12–25; TEMP 34.2–37.7; O2SAT 91–98; BMI 24.6
[2024-12-18] MEDS: fentaNYL citrate/NS 1,000 MCG/100 ML PLAST..BAG 5 MCG IVCONT (04:34)
[2024-12-18] MEDS: Valproic Acid (as Sodium Salt) 500 MG in Dextrose 5 % 50 ML 55 MG IV ×3 (04:36→20:37)
[2024-12-18 04:38] LABS: VBG HCO3 30 mmol/L (22-26); VBG O2 % Saturation 99.0 %
[2024-12-18 05:17] LABS: Hematocrit 27.2 % (42.0-52.0); Hemoglobin 9.0 g/dl (14.0-18.0); Imm Gran Abs Auto 0.44 X10*3/uL (0.00-0.03); Imm Gran Pct Auto 1.7 % (0.0-0.4); Lymphocytes Absolute Auto 2.9 X10*3/uL (1.2-4.9); MANUAL DIFF FLAG SCAN; Mean Corpuscular HGB Conc 33.1 g/dl (31.0-36.0); Mean Corpuscular Hemoglobin 28.8 pg (27.0-33.0); Mean Corpuscular Volume 86.9 fL (80.0-98.0); NRBC Abs Auto 0.000 X10*3/uL (0.0-0.012); NRBC Pct Auto 0.0 /100WBC (0.0-0.2); Platelet Count 290 X10*3/uL (160-400); Red Blood Count 3.13 X10*6/uL (4.60-5.80); SCAN SMEAR FLAG 1; White Blood Count 25.8 X10*3/uL (4.8-10.8)
[2024-12-18 05:27] LABS: Alanine Aminotransferase 31 U/L (0-40); Albumin Level 4.5 g/dL (3.5-5.0); Alkaline Phosphatase 45 U/L (39-117); Anion Gap 16 (12-20); Aspartate Amino Transferase 185 U/L (5-37); Blood Urea Nitrogen 31 mg/dL (9-16); Calcium 9.1 mg/dL (8.4-10.2); Carbon Dioxide 27 mmol/L (22-29); Chloride 106 mmol/L (96-108); Creatinine Clr Calc Pharmacy 35.0; Estimated Glomerular Filt Rate 40; Magnesium 2.7 mg/dL (1.6-2.6); Potassium 4.7 mmol/L (3.3-5.1); Sodium 144 mmol/L (135-145); Total Protein 7.3 g/dL (6.5-8.0)
--- NOTE | 2024-12-18 06:05 | PC.NURSE ---
Assumed care at 1900. Patient intubated and sedated, propofol and fentanyl gtts running per JUL for RASS -3. SR on tele, HR 60s-70s. Levophed gtt running per JUL for BP support. Mechanically ventilated, see vent assessment. Abdomen soft and round, OGT in place and clamped. Richardson catheter in place draining small amount of clear yellow urine, approx 20-40mL/hr, INSTITUTIONAL NUTRITION CONSULTANT Waldo aware. Skin overall warm dry and intact, diffuse bruising noted and blanchable redness to buttocks. [place] prophylactic?foam applied, patient repositioned Q2HR. Bed locked in lowest possible position, bed alarm on.HCP Son Baltazar updated by this RN via phone.
[2024-12-18 06:37] LABS: Venous Blood Gas Refer to POC result
[2024-12-18] MEDS: Chlorhexidine Gluc Oral Rinse 15 ML MOUTHWASH BUCCAL (08:00)
--- NOTE | 2024-12-18 10:52 | MHC.CM.PN ---
Attempted to meet with patient in regards to discharge planning. Attempted to speak with patient's son/HCP, Baltazar, via telephone at [phone]. No answer. Voicemail is full. Unable to leave message. CM assessment completed using medical record. Patient lives with Baltazar. Patient was inpatient on [facility] from 12/01-12/07. Patient was d/c'd home with expectations of [facility]. PCP is Dr Ana Kohler. Copy of HCP verified to be on file. IMM left bedside. Anticipate patient will need physical therapy eval for home safety when medically stable. Continue to monitor for d/c needs.
--- NOTE | 2024-12-18 11:23 | PC.RT ---
SVN ordered for pt given as ordered and charted. Unable to sigh off in JUL as RT unable to verify a bronchodilator. order.
--- NOTE | 2024-12-18 11:30 | P.PNCC_ITS ---
Subjective Subjective Date of Service: 12/18/24 Interval History: 74-year-old gentleman with underlying polysubstance abuse presented by EMS for evaluation of unresponsiveness and respiratory distress. On ER evaluation with respiratory distress with poor response to initial BiPAP support requiring intubation and ventilatory support. Also noted to have acute renal failure with metabolic acidosis and hyperkalemia. Admitted to the intensive care unit. No events overnight. Extubated this a.m.. Critical Care Time (minutes): 60 Physical Exam 2 Vital Signs: Vital Signs: Last Vital Signs Temp 97.9 F 12/18/24 11:00 Pulse 71 12/18/24 11:20 Resp 17 12/18/24 11:20 BP 109/79 12/18/24 11:00 Pulse Ox 95 12/18/24 11:00 O2 Del Method Nasal Cannula 12/18/24 11:00 O2 Flow Rate 1 12/18/24 11:00 FiO2 30 12/18/24 10:50 BMI result Body Mass Index 24.6 Const: General: no acute distress, alert and awake Eyes: Sclerae: sclerae normal EOM: EOMs intact bilaterally Neck: Neck: Yes no lymphadenopathy, Yes trachea midline and Yes supple Resp: Effort & Inspection: normal respiratory effort and no respiratory distress Auscultation: clear to auscultation bilaterally Cardio: Rate: regular rate Rhythm: regular rhythm Heart sounds: no gallops, no murmurs and no rubs GI: Palpation (GI): Soft to palpation and Other GI palpation findings present ( Nontender) Auscultation: normal bowel sounds Extrem: General: Yes no pedal edema, No clubbing and No cyanosis Objective Data Labs 12/18/24 04:25 12/18/24 04:25 Labs: Laboratory Results - last 24 hr 12/17/24 12/17/24 12/17/24 12:47 13:28 15:01 WBC RBC Hgb Hct MCV MCH MCHC RDW Plt Count MPV Immature Gran % (Auto) Neut % (Auto) Lymph % (Auto) [place] % (Auto) Eos % (Auto) Baso % (Auto) Lymph # (Auto) [facility] # (Auto) Eos # (Auto) Baso # (Auto) Abs Immat Gran (auto) Absolute Neuts (auto) Absolute Nucleated RBC Nucleated RBC % (auto) Smear Tech's Comments Hold Purple Top SEE NOTE VBG pH VBG pCO2 VBG pO2 VBG HCO3 VBG O2 Saturation VBG Base Excess Sodium Potassium Chloride Carbon Dioxide Anion Gap BUN Creatinine Estim Creat Clear Calc Estimated GFR Random Glucose Lactic Acid F/U @ 2Hr 7.2 H* Lactic Acid F/U @ 4Hr 8.6 H* Calcium Phosphorus Magnesium Total Bilirubin AST ALT Alkaline Phosphatase Total Protein Albumin Hold Yellow Top See Note Urine Color Yellow Urine Appearance Cloudy Urine pH 5.5 Ur Specific [place] 1.015 Urine Protein 30 (1+) H Urine Glucose (UA) Negative Urine Ketones Trace Urine Blood Large (3+) H Urine Nitrite Negative Ur Leukocyte Esterase Negative Urine RBC 3-5 H Urine WBC 0-5 Ur Squamous Epith Cells 6-10 Urine Bacteria None Seen Hyaline Casts >20 Urine Opiates Screen POSITIVE H Ur Buprenorphine Scrn Not Detected Ur Oxycodone Screen Not Detected Urine Methadone Screen Positive H Urine Fentanyl Screen POSITIVE H Ur Barbiturates Screen Not Detected Ur Phencyclidine Scrn Not Detected Ur Amphetamines Screen Not Detected U Benzodiazepines Scrn POSITIVE H Urine Cocaine Screen Not Detected U Marijuana (THC) Screen Not Detected 12/17/24 12/18/24 12/18/24 19:37 04:25 04:34 WBC 25.8 H RBC 3.13 L Hgb 9.0 L Hct 27.2 L D MCV 86.9 D MCH 28.8 MCHC 33.1 RDW 14.9 Plt Count 290 MPV 9.9 Immature Gran % (Auto) 1.7 H Neut % (Auto) 81.6 H Lymph % (Auto) 11.[address] [place] % (Auto) 5.3 Eos % (Auto) 0.0 Baso % (Auto) 0.3 Lymph # (Auto) 2.9 [facility] # (Auto) 1.4 H Eos # (Auto) 0.0 Baso # (Auto) 0.1 Abs Immat Gran (auto) 0.44 H Absolute Neuts (auto) 21.0 H Absolute Nucleated RBC 0.000 Nucleated RBC % (auto) 0.0 Smear Tech's Comments VERIFIED Hold Purple Top VBG pH 7.52 H VBG pCO2 37 VBG pO2 151 VBG HCO3 30 H VBG O2 Saturation 99.0 VBG Base Excess 7.7 Sodium 142 144 Potassium 4.8 D 4.7 Chloride 107 106 Carbon Dioxide 22 27 Anion Gap 18 16 BUN 27 H 31 H Creatinine 1.78 H 1.67 H Estim Creat Clear Calc 32.8 35.0 Estimated GFR 38 40 Random Glucose 185 H 132 H Lactic Acid F/U @ 2Hr Lactic Acid F/U @ 4Hr Calcium 9.0 9.1 Phosphorus 3.8 3.9 Magnesium 2.5 2.7 H Total Bilirubin 0.3 AST 185 H ALT 31 Alkaline Phosphatase 45 Total Protein 7.3 Albumin 4.5 Hold Yellow Top Urine Color Urine Appearance Urine pH Ur Specific [place] Urine Protein Urine Glucose (UA) Urine Ketones Urine Blood Urine Nitrite Ur Leukocyte Esterase Urine RBC Urine WBC Ur Squamous Epith Cells Urine Bacteria Hyaline Casts Urine Opiates Screen Ur Buprenorphine Scrn Ur Oxycodone Screen Urine Methadone Screen Urine Fentanyl Screen Ur Barbiturates Screen Ur Phencyclidine Scrn Ur Amphetamines Screen U Benzodiazepines Scrn Urine Cocaine Screen U Marijuana (THC) Screen Progress Note: A&P Assessment and plan (1) Pulmonary aspiration: Status: Acute (2) Acute hypoxemic respiratory failure: Status: Acute (3) Polysubstance abuse: Status: Acute Plan Assessment: 74-year-old gentleman admitted with alteration of mental status and respiratory distress likely secondary to pulmonary aspiration on a background of polysubstance abuse. Plan: Neuro: No acute issues. Cardiac: May have component of pulmonary edema. 2D echocardiogram is pending. Pulmonary: Acute respiratory distress and hypoxia requiring intubation and ventilatory support, likely secondary to an aspiration event. Extubated this a.m.. Continue to titrate off supplemental oxygen as tolerated. Renal: Acute renal failure with hyperkalemia and metabolic acidosis, resolved. Non oliguric. Continue to monitor renal indices and urine output. Endo: No acute issues. GI: No acute issues. ID: Empiric coverage for pulmonary aspiration. Heme/Onc: No acute issues. Psych: No acute issues. Miscellaneous: No acute issues. Prophylaxis: Heparin Diet: Pending swallow evaluation Critical care time spent: 60 minutes Quality Stroke Does the patient have a stroke diagnosis?: No VTE Prior VTE?: No VTE Risk Level:: Medical - moderate - high VTE Device Contraindication: Treatment Not Indicated VTE Drug Contraindication: N/A - Med Ordered
[2024-12-18] MEDS: Albuterol/Iprat 2.5/0.5MG 3 ML AMPUL.NEB INHALE ×2 (15:12→19:55)
--- NOTE | 2024-12-18 16:34 | PC.NURSE ---
Assumed care at 0700- pt. mechanically vented and sedated. Sedation vacation initiated at 1010, pt. awake, opening eyes spontaneously, tracking, and following commands. Switched to PSV 5/5 30% by RT. Pt. uneventfully extubated by RT with MD order at 1100- placed on 2L NC. Pt. A&O to self only, pleasantly confused requiring frequent re-direction. 1:1 sitter placed at bedside for patient safety. SR on tele, HR 60s-80s. Levophed gtt weaned off per JUL. Pt. with intermittent expiratory wheeze post extubation- scheduled albuterol treatments given by RT. OGT removed on extubation, no BM this shift. Richardson remains in place draining dark cyu, 10-30cc/hr- MD aware. Blanchable redness to coccyx, foam dsg CDI. Pt. repositioned Q2hr, family updated by this RN via telephone. Plan of care ongoing.
[2024-12-19] VITALS (18 sets, daily range): BP systolic 138–183; BP diastolic 60–92; PULSE 70–90; RESP 12–24; TEMP 36.3–37.5; O2SAT 92–97; BMI 23.2
[2024-12-19] MEDS: Valproic Acid (as Sodium Salt) 500 MG in Dextrose 5 % 50 ML 55 MG IV (04:50)
[2024-12-19 05:40] LABS: VBG HCO3 25 mmol/L (22-26); VBG O2 % Saturation 99.0 %
[2024-12-19 05:54] LABS: Venous Blood Gas Refer to POC result
[2024-12-19 06:02] LABS: MANUAL DIFF FLAG NO
[2024-12-19 06:04] LABS: Hematocrit 29.0 % (42.0-52.0); Hemoglobin 9.6 g/dl (14.0-18.0); Imm Gran Abs Auto 0.33 X10*3/uL (0.00-0.03); Imm Gran Pct Auto 1.9 % (0.0-0.4); Lymphocytes Absolute Auto 3.0 X10*3/uL (1.2-4.9); Mean Corpuscular HGB Conc 33.1 g/dl (31.0-36.0); Mean Corpuscular Hemoglobin 28.7 pg (27.0-33.0); Mean Corpuscular Volume 86.8 fL (80.0-98.0); NRBC Abs Auto 0.000 X10*3/uL (0.0-0.012); NRBC Pct Auto 0.0 /100WBC (0.0-0.2); Platelet Count 291 X10*3/uL (160-400); Red Blood Count 3.34 X10*6/uL (4.60-5.80); White Blood Count 17.2 X10*3/uL (4.8-10.8)
[2024-12-19 06:27] LABS: Albumin Level 4.2 g/dL (3.5-5.0); Anion Gap 17 (12-20); Blood Urea Nitrogen 29 mg/dL (9-16); Calcium 9.2 mg/dL (8.4-10.2); Carbon Dioxide 23 mmol/L (22-29); Chloride 107 mmol/L (96-108); Creatinine Clr Calc Pharmacy 57.9; Estimated Glomerular Filt Rate > 60; Magnesium 2.3 mg/dL (1.6-2.6); Potassium 4.2 mmol/L (3.3-5.1); Sodium 143 mmol/L (135-145)
--- NOTE | 2024-12-19 07:00 | CA_ITS ---
Transthoracic Echocardiogram Patient (Last, First, Middle): Mahendra Bashir L Gender: Male Date of : 1950 Age: 74 Procedure Date: 12/19/2024 Procedure Type: Transthoracic Echocardiogram Location: ICU Height: 167.64 cm Weight: 64.86 kg BSA: 1.73 m2 Heart Rate: bpm BP: 145 / 87 mmHg Butadiene Converter Utility Operator: DAVIN Referring MD: Dylna Gavin MD Symptoms: Hypoxia Study Quality: Fair Conclusions: - Normal left ventricular cavity size. There is normal left ventricular wall thickness. The left ventricular systolic function is low normal. The visually estimated ejection fraction is between 50-55%. - E/E prime ratio is between 8 and 15 consistent with indeterminate filling pressures. - Normal right ventricular cavity size and systolic function. - There is mild dilatation of the sinuses of Valsalva measuring 3.95 cm. Findings Procedure Information The study quality is limited by the patients inability to tolerate the test and an uncooperative patient. Left Ventricle Normal left ventricular cavity size. There is normal left ventricular wall thickness. The left ventricular systolic function is low normal. The visually estimated ejection fraction is between 50-55%. Regional wall motion abnormalities can not be excluded due to suboptimal endocardial definition. Abnormal diastolic function is noted. Spectral Doppler is indicative of an impaired relaxation filling pattern. E/E prime ratio is between 8 and 15 consistent with indeterminate filling pressures. Right Ventricle Normal right ventricular cavity size and systolic function. Atria The left atrium is mildly dilated. The right atrium is normal in size. Aortic Valve There is a normal trileaflet aortic valve. There is mild calcification of the aortic valve. There is no aortic valve stenosis. There is no aortic valve regurgitation. Mitral Valve The mitral valve appears normal. There is no mitral valve regurgitation. There is no mitral valve stenosis. Pulmonic Valve The pulmonic valve is likely normal. Tricuspid Valve Normal tricuspid valve structure. There is no tricuspid valve regurgitation. Tricuspid regurgitation envelope is inadequate for calculation of right ventricular systolic pressure. Normal right atrial pressure. Great Vessels There is mild dilatation of the sinuses of Valsalva measuring 3.95 cm. The visualized portions of the pulmonary artery and branches are normal. Venous The inferior vena cava is normal in size and collapses greater than 50% with inspiration. Pericardium/Pleural There is no evidence of pericardial effusion. Prior Study Comparison No prior study available for comparison. Measurements 2D Linear Measurements IVSd: 0.63 0.6-0.9/0.6-1.0 cm LVIDd: 4.77 3.9-5.3/4.2-5.9 cm LVIDd Index: 2.76 2.4-3.2/2.2-3.1 cm/m2 LVIDs: 3.73 2.0-3.6 cm LVPWd: 0.73 0.7-1.1 cm LA Diam: 3.20 2.7-3.8/3.0-4.0 cm LAIDs Index: 1.85 1.5-2.3 cm/m2 LV Mass: 126.45 67-162/88-224 g LV Mass Index: 73.09 43-95/49-115 g/m2 LVOT Diam: 2.20 3.0+(-)1.3 cm 2D Systolic Function EF 4C: 49.60 >55% EF 2C: 61.10 >55% EF BiP: 54.80 >55% Mitral Valve MV Pk E: 0.82 MV PK A: 0.98 MV Decel Time: 155.00 E/A: 0.80 E'Lateral: 8.27 E'Medial: 7.07 E/E' Med: 11.60 E/E' Lat: 10.00 PHT: 45.00 MVA PHT: 4.89 Decel Falls: 5.32 Aortic Valve AoV Pk Javier: 1.77 AoV Mn Javier: 1.09 AoV VTI: 0.33 AoV Pk Grad: 13.00 Aov Mn Grad: 6.00 DEWAYNE Cont.VTI: 2.18 LVOT LVOT Pk Javier: 1.02 LVOT Mn Javier: 0.61 LVOT VTI: 0.19 LVOT Pk Grad: 4.00 LVOT Mn Grad: 2.00 LVOT Diam: 2.20 LVOT Area: 3.80 Diastolic Function MV Pk E: 0.82 MV Pk A: 0.98 E/A: 0.80 E'Medial: 7.07 E/E' Med: 11.60 E' Laterial: 8.27 E/E' Lat: 10.00 Right Ventricle TAPSE (mm): 19.40 TVS' Javier: 19.00 Tricuspid Valve RA Press: 3.00 Great Vessels Aorta Sinus of Valsalva: 3.95 2.0-3.[address] [place]: 3.05 1.7-3.4 cm Ao Asc: 3.60 2.1-3.4 cm Updated in Other Vendor System with Status of Final Akil Loomis MD electronically signed on 12/19/2024 2:19:01 PM with status of Final
[2024-12-19] MEDS: Albuterol/Iprat 2.5/0.5MG 3 ML AMPUL.NEB INHALE ×3 (07:51→20:02)
--- NOTE | 2024-12-19 09:41 | P.PNCC_ITS ---
Subjective Subjective Date of Service: 12/19/24 Interval History: 74-year-old gentleman with underlying polysubstance abuse presented by EMS for evaluation of unresponsiveness and respiratory distress. On ER evaluation with respiratory distress with poor response to initial BiPAP support requiring intubation and ventilatory support. Also noted to have acute renal failure with metabolic acidosis and hyperkalemia. Admitted to the intensive care unit. Extubated uneventfully on 12/18/2024. No events overnight. Critical Care Time (minutes): 0 Physical Exam 2 Vital Signs: Vital Signs: Last Vital Signs Temp 98.5 F 12/19/24 08:00 Pulse 80 12/19/24 09:00 Resp 24 H 12/19/24 09:00 BP 144/60 H 12/19/24 09:00 Pulse Ox 94 12/19/24 09:00 O2 Del Method Room Air 12/19/24 09:00 O2 Flow Rate 2 12/18/24 18:00 FiO2 30 12/18/24 10:50 BMI result Body Mass Index 23.2 Const: General: no acute distress, alert and awake Eyes: Sclerae: sclerae normal EOM: EOMs intact bilaterally Neck: Neck: Yes no lymphadenopathy, Yes trachea midline and Yes supple Resp: Effort & Inspection: normal respiratory effort and no respiratory distress Auscultation: clear to auscultation bilaterally Cardio: Rate: regular rate Rhythm: regular rhythm Heart sounds: no gallops, no murmurs and no rubs GI: Palpation (GI): Soft to palpation and Other GI palpation findings present ( Nontender) Auscultation: normal bowel sounds Extrem: General: Yes no pedal edema, No clubbing and No cyanosis Objective Data Labs 12/19/24 05:25 12/19/24 05:25 Labs: Laboratory Results - last 24 hr 12/19/24 12/19/24 05:25 05:37 WBC 17.2 H RBC 3.34 L Hgb 9.6 L Hct 29.0 L MCV 86.8 MCH 28.7 MCHC 33.1 RDW 14.6 Plt Count 291 MPV 10.0 Immature Gran % (Auto) 1.9 H Neut % (Auto) 74.4 H Lymph % (Auto) 17.7 L [place] % (Auto) 5.6 Eos % (Auto) 0.1 Baso % (Auto) 0.3 Lymph # (Auto) 3.0 [place] # (Auto) 1.0 Eos # (Auto) 0.0 Baso # (Auto) 0.1 Abs Immat Gran (auto) 0.33 H Absolute Neuts (auto) 12.8 H Absolute Nucleated RBC 0.000 Nucleated RBC % (auto) 0.0 VBG pH 7.57 H VBG pCO2 27 VBG pO2 145 VBG HCO3 25 VBG O2 Saturation 99.0 VBG Base Excess 4.3 Sodium 143 Potassium 4.2 Chloride 107 Carbon Dioxide 23 Anion Gap 17 BUN 29 H Creatinine 1.01 Estim Creat Clear Calc 57.9 Estimated GFR > 60 Random Glucose 82 Calcium 9.2 Phosphorus 2.5 L Magnesium 2.3 Albumin 4.2 Microbiology Microbiology Results: Microbiology 12/17/24 09:40 Blood - Venous Blood Culture - Preliminary No growth after 24 hours. 12/17/24 09:40 Blood - Venous Blood Culture - Preliminary No growth after 24 hours. Progress Note: A&P Assessment and plan (1) Polysubstance abuse: Status: Acute (2) Pulmonary aspiration: Status: Acute Plan Assessment: 74-year-old gentleman admitted with alteration of mental status and respiratory distress likely secondary to pulmonary aspiration on a background of polysubstance abuse. Plan: Neuro: No acute issues. Cardiac: May have component of pulmonary edema. 2D echocardiogram is pending. Pulmonary: Acute respiratory distress and hypoxia requiring intubation and ventilatory support, likely secondary to an aspiration event. Extubated on 12/18/2024. Continue to titrate off supplemental oxygen as tolerated. Renal: Acute renal failure with hyperkalemia and metabolic acidosis, resolved. Non oliguric. Continue to monitor renal indices and urine output. Endo: No acute issues. GI: No acute issues. ID: Empiric coverage for pulmonary aspiration. Heme/Onc: No acute issues. Psych: No acute issues. Miscellaneous: No acute issues. Prophylaxis: Heparin Diet: Regular Quality Stroke Does the patient have a stroke diagnosis?: No VTE Prior VTE?: No VTE Risk Level:: Medical - moderate - high VTE Device Contraindication: Treatment Not Indicated VTE Drug Contraindication: N/A - Med Ordered
--- NOTE | 2024-12-19 19:10 | HO.SKINPHOTO ---
Location: [facility] Category: Stage: Length: Width: Depth: cm Location: Category: Stage: Length: Width: Depth: cm Location: Category: Stage: Length: Width: Depth: cm Location: Category: Stage: Length: Width: Depth: cm Location: Category: Stage: Length: Width: Depth: cm Location: Category: Stage: Length: Width: Depth: cm
--- NOTE | 2024-12-19 19:11 | PC.NURSE ---
Pt was in ICU with forehead sat probe in place. ? MDPI upon removal when pt being transferred to [facility]. Wound consult placed and skin photo uploaded
[2024-12-19] MEDS: Valproic Acid Liquid 250 MG/5 ML SOLUTION 400 MG PO (23:10)
[2024-12-20] VITALS (8 sets, daily range): BP systolic 128–178; BP diastolic 75–98; PULSE 54–115; RESP 14–18; TEMP 36.2–37.2; O2SAT 92–97; BMI 23.3
[2024-12-20 06:15] LABS: MANUAL DIFF FLAG NO
[2024-12-20 06:30] LABS: Hematocrit 34.7 % (42.0-52.0); Hemoglobin 11.5 g/dl (14.0-18.0); Imm Gran Abs Auto 0.21 X10*3/uL (0.00-0.03); Imm Gran Pct Auto 2.1 % (0.0-0.4); Lymphocytes Absolute Auto 2.5 X10*3/uL (1.2-4.9); Mean Corpuscular HGB Conc 33.1 g/dl (31.0-36.0); Mean Corpuscular Hemoglobin 28.0 pg (27.0-33.0); Mean Corpuscular Volume 84.4 fL (80.0-98.0); NRBC Abs Auto 0.000 X10*3/uL (0.0-0.012); NRBC Pct Auto 0.0 /100WBC (0.0-0.2); Platelet Count 350 X10*3/uL (160-400); Red Blood Count 4.11 X10*6/uL (4.60-5.80); White Blood Count 10.2 X10*3/uL (4.8-10.8)
[2024-12-20 06:55] LABS: Albumin Level 4.5 g/dL (3.5-5.0); Anion Gap 18 (12-20); Blood Urea Nitrogen 25 mg/dL (9-16); Calcium 9.8 mg/dL (8.4-10.2); Carbon Dioxide 22 mmol/L (22-29); Chloride 103 mmol/L (96-108); Creatinine Clr Calc Pharmacy 69.6; Estimated Glomerular Filt Rate > 60; Magnesium 2.1 mg/dL (1.6-2.6); Potassium 3.8 mmol/L (3.3-5.1); Sodium 139 mmol/L (135-145)
[2024-12-20] MEDS: Albuterol/Iprat 2.5/0.5MG 3 ML AMPUL.NEB INHALE ×2 (07:47→19:13)
--- NOTE | 2024-12-20 11:02 | MHC.CLN ---
PT WITH INCREASED NUTRITION RISK R/T PRESSURE INJURY DIET ADVANCED TO GRD M/S RECOMMEND ADDING ENSURE BID TO PROMOTE WOUND HEALING SUPP PROVIDES 700KCALS, 40G PROTEIN MONITOR PO INTAKE AND ENCOURAGE SUPPLEMENTS
[2024-12-20] MEDS: Valproic Acid Liquid 250 MG/5 ML SOLUTION 400 MG PO ×3 (11:14→22:32)
--- NOTE | 2024-12-20 12:49 | HO.WOUND ---
Wound Consult: Initial 74yr old?male admitted to [facility] [place]24 - See progress notes and H&P for detailed history.? Wound consult placed for Forehead and coccyx.? Patient agreeable to assessment and photo documentation.? Forehead Etiology: ??Stage 2 Pressure Injury - Device Related - Forehead SpO2 sensor Wound Bed: two areas with dried epidermal lifting Drainage / Odor: none Edges: ? well defined and attached Maureen wound: intact ? No Induration, Fluctuance or Warmth noted Pain: denies Goals of Treatment: ?Continue to off load pressure - no device in use at this time- May leave SURGERY ASSISTANT Coccyx Etiology: ?Unclear etiology not pressure related - suspect MASD ?Present on Admission Wound Bed: base of fold with open clean tissue - mirrored maroon intact blanchable tissue Drainage / Odor: None noted Edges: ? Mirrored and attached Maureen wound: Redness linear line remain intact and banchable ? No Induration, Fluctuance or Warmth noted Pain: denies Goals of Treatment: Off Load Pressure and foam dressing to protect from friction and moisture Unclear etiology of buttock - however possibly when patient was fgound down at home he had a fall and struck the area - at this time not consistent with pressure as it remains blanchable and an irregular location and shape. Patient is noted for frequent liquid bowel movements. Recommendations: 1. Turn and Reposition every 2 hours and as needed for patient comfort.? Use pillows or wedges to support off loading positions. 2. Off Load all bony prominences with use of pillows and heel boots if needed.? Apply Preventative foams where needed. ? 3. Monitor for incontinence and moisture control, use barrier creams when needed for prevention and treatment. 4. Provide adequate and supplemental nutrition.? 5. Order low air loss mattress. 6. When applicable maintain blood glucose levels per Providers order. Forehead - monitor for resolution - may leave NATALIIA. Coccyx and Buttock - Off Load Pressure with Q2 hr turns and use of pillows - Routine cleansing.? Apply skin prep allow to dry.? Cover with foam dressing to aid in off loading and protection from friction. Change every 3 days and PRN. Re-consult wound care Nurse for wound deterioration or wound changes.
--- NOTE | 2024-12-20 13:03 | MHC.SL.SWA ---
Speech Pathologist Impression: Risk of Aspiration, Oral Phase Dysphagia Dysphasia Diet Status: Start on NDD2/THIN Liquid Consistency and Strategies for Safe Swallow: Liquid Intake Recommendation: Thin Solid Food Consistency: Dietary Recommendations: Grnd/Mech Altered (NDD2) Additional Modifications to Solid Foods: Patient is admitted w/ AMS and respiratory distress, concern for aspiration. Patient presented today with mild oral phase dysphagia, maladaptive chewing pattern on purees, and presence of mild oral residue post-swallow. Patient is edentulous w/ top dentures here in the hospital w/ him. Recommend start on GROUND/MECH ALTERED (NDD2) solids and THIN liquids, pills WHOLE or CRUSHED in PUREE. Patient to be supervised at meals to monitor tolerance and provide assistance with feeding as needed/ Ensure patient has dentures in for PO intake, to be seated upright at 90 degrees, strategies to promote clearance include alternate solids/liquids, double swallow, moisten foods w/ sauces/gravies. Oral Medication Intake: Whole with Puree Please contact the pharmacy regarding appropriate crushable or liquid drug formulations that are available whenever modified delivery is recommended. Supervision While Eating and Drinking for Safe Swallow: Direct Supervision (1:1) Recommendation for Speech: Inpatient Speech Therapy Maintenance Parts Technician Clinican/Clinical Fellow: No Supervisory Statement: I have reviewed and agree with the student/clinical fellow's documentation: N/A Speech Language Pathologist: Silvia Benson M.A., CCC-CARDIOLOGY COORDINATOR
--- NOTE | 2024-12-20 17:17 | P.PNIM_ITS ---
Subjective Subjective Date of Service: 12/20/24 Interval History: polysubstance use Preliminary aspiration Review of Systems Feeling somewhat improving Denies any chest pain or shortness of breath Review of Systems: Yes all other systems are reviewed and are negative Physical Exam 2 Exam: Exam: Appearance: Alert.? Oriented . cvs: rrr, [id number]. res: air entry diminshed at bases.no rales or wheezing abd: no rebound or guarding ,nt, bs present. ext pulses present , no cyanosis . neuro: nonfocal. Vital Signs: Vital Signs: Last Vital Signs Temp 97.7 F 12/20/24 15:53 Pulse 91 12/20/24 15:53 Resp 18 12/20/24 15:53 BP 158/91 H 12/20/24 15:53 Pulse Ox 96 12/20/24 15:53 O2 Del Method Room Air 12/20/24 15:53 O2 Flow Rate 2 12/18/24 18:00 FiO2 30 12/18/24 10:50 BMI result Body Mass Index 23.3 Objective Data Active Medications Albuterol/Ipratropium (Albuterol/Iprat 2.5/0.5mg 3 Ml Ampul.Neb) 3 ml INHALE RQ6H WHILE AWAKE [facility] Last Admin: 12/20/24 15:12 Dose: Not Given Documented By: MAGGI Non-Admin Reason: pt is clear on RA, no distress Heparin Sodium (Porcine) (Heparin Sodium,Porcine 5,000 Unit/Ml Vial) 5,000 unit SUBCUT Q8H [facility] Last Admin: 12/20/24 15:15 Dose: 5,000 unit Documented By: YUMIKO Levofloxacin (Levaquin) 750 mg in 150 mls @ 100 mls/hr IV Q48H [facility] Last Infusion: 12/19/24 12:57 Dose: Infused Documented By: BART Naloxone HCl (Naloxone Hcl 0.4 Mg/Ml Vial) 0.2 mg IVPUSH Q2M PRN PRN Reason: Excessive sedation or RR < 8 Valproic Acid (Valproic Acid Liquid 250 Mg/5 Ml Solution) 400 mg PO TID [facility] Last Admin: 12/20/24 15:27 Dose: 400 mg Documented By: YUMIKO Labs 12/20/24 05:42 12/20/24 05:42 Labs: Laboratory Results - last 24 hr 12/20/24 05:42 MCV 84.4 MCH 28.0 MCHC 33.1 RDW 14.4 Plt Count 350 MPV 10.0 Immature Gran % (Auto) 2.1 H Neut % (Auto) 65.2 Lymph % (Auto) 24.3 [place] % (Auto) 7.8 Eos % (Auto) 0.1 Baso % (Auto) 0.5 Lymph # (Auto) 2.5 [place] # (Auto) 0.8 Eos # (Auto) 0.0 Baso # (Auto) 0.1 Abs Immat Gran (auto) 0.21 H Absolute Neuts (auto) 6.7 Absolute Nucleated RBC 0.000 Nucleated RBC % (auto) 0.0 Anion Gap 18 Estim Creat Clear Calc 69.6 Estimated GFR > 60 Random Glucose 89 Calcium 9.8 D Phosphorus 2.5 L Magnesium 2.1 Albumin 4.5 Assessment and Plan (1) Aspiration pneumonia: Status: Acute Plan 74-year-old gentleman with underlying polysubstance abuse presented by EMS for evaluation of unresponsiveness and respiratory distress. On ER evaluation with respiratory distress with poor response to initial BiPAP support requiring intubation and ventilatory support. Also noted to have acute renal failure with metabolic acidosis and hyperkalemia. Admitted to the intensive care unit. Extubated uneventfully on 12/18/2024. Acute respiratory distress and hypoxia requiring intubation and ventilatory support, likely secondary to an aspiration pneumonia . Extubated on 12/18/2024. Continue to titrate off supplemental oxygen as tolerated. Continue IV antibiotics ,taper oxygen echo:Normal left ventricular cavity size. There is normal left ventricular wall thickness. The left ventricular systolic function is low normal. The visually estimated ejection fractionis between 50-55%. Polysubstance use: Addition consult added. GERD - famotidine mood disorder - continue home medications: amitriptylline, valproate, quetiapine, gabapentin tobacco abuse - NRT VTE ppx - enoxaparin wound care: Recommendations: 1. Turn and Reposition every 2 hours and as needed for patient comfort.? Use pillows or wedges to support off loading positions. 2. Off Load all bony prominences with use of pillows and heel boots if needed.? Apply Preventative foams where needed. ? 3. Monitor for incontinence and moisture control, use barrier creams when needed for prevention and treatment. 4. Provide adequate and supplemental nutrition.? 5. Order low air loss mattress. 6. When applicable maintain blood glucose levels per Providers order. Forehead - monitor for resolution - may leave NATALIIA. Coccyx and Buttock - Off Load Pressure with Q2 hr turns and use of pillows - Routine cleansing.? Apply skin prep allow to dry.? Cover with foam dressing to aid in off loading and protection from friction. Change every 3 days and PRN. ongoing need:Acute respiratory distress and hypoxia requiring intubation and ventilatory support, likely secondary to an aspiration pneumonia -need iv antibiotics , taper oxygen and addiction. Quality Stroke Does the patient have a stroke diagnosis?: No VTE Prior VTE?: No VTE Risk Level:: Medical - moderate - high VTE Device Contraindication: Treatment Not Indicated VTE Drug Contraindication: N/A - Med Ordered
[2024-12-20] MEDS: Calcium + Vitamin D 250 MG TABLET 500 MG PO (22:31)
[2024-12-21] VITALS (9 sets, daily range): BP systolic 95–125; BP diastolic 55–78; PULSE 82–90; RESP 16–18; TEMP 36.3–36.6; O2SAT 92–99; BMI 22.8
[2024-12-21] MEDS: Albuterol/Iprat 2.5/0.5MG 3 ML AMPUL.NEB INHALE ×3 (07:21→20:37)
[2024-12-21] MEDS: Calcium + Vitamin D 250 MG TABLET 500 MG PO ×2 (09:16→20:20)
[2024-12-21] MEDS: Valproic Acid Liquid 250 MG/5 ML SOLUTION 400 MG PO ×3 (09:16→20:21)
--- NOTE | 2024-12-21 10:23 | MHC.CM.PN ---
Per ROUNDS discussion, Patient is not yet medically cleared for dc (IV ABX, PT Eval is pending); PT Eval will help assist with disposition.CM will continue to follow.
--- NOTE | 2024-12-21 10:26 | MHC.CLN ---
F/U PT WITH INCREASED NUTRITION RISK R/T PRESSURE INJURY DIET RX: GRD M/S RECEIVING ENSURE BID TO PROMOTE WOUND HEALING SUPP PROVIDES 700KCALS, 40G PROTEIN WITH 100% ACCEPTANCE MONITOR PO INTAKE AND ENCOURAGE SUPPLEMENTS
--- NOTE | 2024-12-21 11:50 | MHC.CM.PN ---
PT is recommending STR.CM will continue to follow.
--- NOTE | 2024-12-21 12:15 | MHC.CM.PN ---
CM received a call from Patient's Son/HCP/Baltazar @ [phone]; Baltazar is in agreement that Patient would benefit from the recommended STR. CM will continue to follow.
--- NOTE | 2024-12-21 12:45 | HO.WOUND ---
Wound Consult: Follow up 74yr old?[place] [facility] [place] - See progress notes and H&P for detailed history.? Wound consult follow up for Forehead.? Patient agreeable to assessment and photo documentation.? The wound to the forehead continues to resolve. No drainage noted - continue with dry epidermal layer resurfacing. Remains stage 2 resurfacing pressure injury device related. No new topical recommendations may remain NATALIIA at this time. Coccyx not reassessed today. Details from prior assessment: Forehead Etiology: ??Stage 2 Pressure Injury - Device Related - Forehead SpO2 sensor Wound Bed: two areas with dried epidermal lifting Drainage / Odor: none Edges: ? well defined and attached Maureen wound: intact ? No Induration, Fluctuance or Warmth noted Pain: denies Goals of Treatment: ?Continue to off load pressure - no device in use at this time- May leave NATALIIA Coccyx Etiology: ?Unclear etiology not pressure related - suspect MASD ?Present on Admission Wound Bed: base of fold with open clean tissue - mirrored maroon intact blanchable tissue Drainage / Odor: None noted Edges: ? Mirrored and attached Maureen wound: Redness linear line remain intact and banchable ? No Induration, Fluctuance or Warmth noted Pain: denies Goals of Treatment: Off Load Pressure and foam dressing to protect from friction and moisture Unclear etiology of buttock - however possibly when patient was fgound down at home he had a fall and struck the area - at this time not consistent with pressure as it remains blanchable and an irregular location and shape. Patient is noted for frequent liquid bowel movements. Recommendations: 1. Turn and Reposition every 2 hours and as needed for patient comfort.? Use pillows or wedges to support off loading positions. 2. Off Load all bony prominences with use of pillows and heel boots if needed.? Apply Preventative foams where needed. ? 3. Monitor for incontinence and moisture control, use barrier creams when needed for prevention and treatment. 4. Provide adequate and supplemental nutrition.? 5. Order low air loss mattress. 6. When applicable maintain blood glucose levels per Providers order. Forehead - monitor for resolution - may leave NATALIIA. Coccyx and Buttock - Off Load Pressure with Q2 hr turns and use of pillows - Routine cleansing.? Apply skin prep allow to dry.? Cover with foam dressing to aid in off loading and protection from friction. Change every 3 days and PRN. Re-consult wound care Nurse for wound deterioration or wound changes.
--- NOTE | 2024-12-21 14:57 | MHC.SLORD ---
Speech Language Pathology Order Status: Pt seen for dysphagia treatment, pt resting comfortably, politely declined PO as he had already eaten. Education provided on symptoms of post extubation dysphagia. Pt denied persisting dysphagia, endorsed that his voice has returned to baseline, and expressed satisfaction with current diet (NDD2 with thins). SPINDLE FRAME CARVER to followup x1 to check tolerance of current diet.
--- NOTE | 2024-12-21 17:25 | HO.PM.IMPN ---
Subjective Subjective Date of Service: 12/21/24 Interval History: polysubstance use Pulm aspiration Review of Systems Feeling somewhat improving Denies any chest pain or shortness of breath Review of Systems: Yes all other systems are reviewed and are negative Physical Exam Exam: Exam: Appearance: Alert.? Oriented . cvs: rrr, [id number]. res: air entry diminshed at bases.no rales or wheezing abd: no rebound or guarding ,nt, bs present. ext pulses present , no cyanosis . neuro: nonfocal. Vital Signs: Vital Signs: Last Vital Signs Temp 97.5 F 12/21/24 15:40 Pulse 90 12/21/24 15:40 Resp 16 12/21/24 15:40 BP 100/72 12/21/24 15:40 Pulse Ox 94 12/21/24 15:40 O2 Del Method Room Air 12/21/24 15:40 O2 Flow Rate 2 12/18/24 18:00 FiO2 30 12/18/24 10:50 BMI result Body Mass Index 22.8 Objective Data Active Medications Albuterol/Ipratropium (Albuterol/Iprat 2.5/0.5mg 3 Ml Ampul.Neb) 3 ml INHALE RQ6H WHILE AWAKE [facility] Last Admin: 12/21/24 14:12 Dose: 3 ml Documented By: ANITA Amitriptyline HCl (Amitriptyline Hcl 10 Mg Tablet) 20 mg PO BEDTIME [facility] Last Admin: 12/20/24 22:31 Dose: 20 mg Documented By: CHRISTI Calcium Carbonate/Cholecalciferol (Calcium + Vitamin D 250 Mg Tablet) 500 mg PO BID [facility] Last Admin: 12/21/24 09:16 Dose: 500 mg Documented By: YUMIKO Cyanocobalamin (Cyanocobalamin (Vitamin B-12) 1,000 Mcg Tablet) 1,000 mcg PO DAILY [facility] Last Admin: 12/21/24 09:16 Dose: 1,000 mcg Documented By: YUMIKO Famotidine (Famotidine 20 Mg Tablet) 20 mg PO DAILY@0630 [facility] Last Admin: 12/21/24 05:10 Dose: 20 mg Documented By: CHRISTI Heparin Sodium (Porcine) (Heparin Sodium,Porcine 5,000 Unit/Ml Vial) 5,000 unit SUBCUT Q8H [facility] Last Admin: 12/21/24 14:25 Dose: 5,000 unit Documented By: OMARI Levofloxacin (Levaquin) 750 mg in 150 mls @ 100 mls/hr IV Q48H [facility] Last Admin: 12/21/24 14:24 Dose: 150 mls/hr Documented By: OMARI Memantine (Memantine Hcl 5 Mg Tablet) 5 mg PO BID [facility] Last Admin: 12/21/24 09:16 Dose: 5 mg Documented By: YUMIKO Naloxone HCl (Naloxone Hcl 0.4 Mg/Ml Vial) 0.2 mg IVPUSH Q2M PRN PRN Reason: Excessive sedation or RR < 8 Quetiapine Fumarate (Quetiapine Fumarate 100 Mg Tablet) 100 mg PO BEDTIME [facility] Last Admin: 12/20/24 22:32 Dose: 100 mg Documented By: CHRISTI Valproic Acid (Valproic Acid Liquid 250 Mg/5 Ml Solution) 400 mg PO TID [facility] Last Admin: 12/21/24 14:24 Dose: 400 mg Documented By: OMARI Vitamin D (Cholecalciferol (Vitamin D3) 25 Mcg Tablet) 50 mcg PO DAILY [facility] Last Admin: 12/21/24 09:16 Dose: 50 mcg Documented By: YUMIKO Labs 12/20/24 05:42 12/20/24 05:42 Assessment and Plan (1) Aspiration pneumonia: Status: Acute Plan 74-year-old gentleman with underlying polysubstance abuse presented by EMS for evaluation of unresponsiveness and respiratory distress. On ER evaluation with respiratory distress with poor response to initial BiPAP support requiring intubation and ventilatory support. Also noted to have acute renal failure with metabolic acidosis and hyperkalemia. Admitted to the intensive care unit. Extubated uneventfully on 12/18/2024. Acute respiratory distress and hypoxia requiring intubation and ventilatory support, likely secondary to an aspiration pneumonia . Extubated on 12/18/2024. Continue to titrate off supplemental oxygen as tolerated. Continue IV antibiotics ,taper oxygen echo:Normal left ventricular cavity size. There is normal left ventricular wall thickness. The left ventricular systolic function is low normal. The visually estimated ejection fractionis between 50-55%. Polysubstance use: Addition consult added. GERD - famotidine mood disorder - continue home medications: amitriptylline, valproate, quetiapine, gabapentin tobacco abuse - NRT VTE ppx - enoxaparin wound care: Recommendations: 1. Turn and Reposition every 2 hours and as needed for patient comfort.? Use pillows or wedges to support off loading positions. 2. Off Load all bony prominences with use of pillows and heel boots if needed.? Apply Preventative foams where needed. ? 3. Monitor for incontinence and moisture control, use barrier creams when needed for prevention and treatment. 4. Provide adequate and supplemental nutrition.? 5. Order low air loss mattress. 6. When applicable maintain blood glucose levels per Providers order. Forehead - monitor for resolution - may leave NATALIIA. Coccyx and Buttock - Off Load Pressure with Q2 hr turns and use of pillows - Routine cleansing.? Apply skin prep allow to dry.? Cover with foam dressing to aid in off loading and protection from friction. Change every 3 days and PRN. Pt eval ongoing need:Acute respiratory distress and hypoxia requiring intubation and ventilatory support, likely secondary to an aspiration pneumonia -need iv antibiotics , taper oxygen and addiction. Quality Stroke Does the patient have a stroke diagnosis?: No VTE Prior VTE?: No VTE Risk Level:: Medical - moderate - high VTE Device Contraindication: Treatment Not Indicated VTE Drug Contraindication: N/A - Med Ordered
[2024-12-22] VITALS (7 sets, daily range): BP systolic 99–147; BP diastolic 55–83; PULSE 72–89; RESP 16–20; TEMP 36.2–36.8; O2SAT 93–98
[2024-12-22] MEDS: Calcium + Vitamin D 250 MG TABLET 500 MG PO ×2 (07:49→20:35)
[2024-12-22] MEDS: Valproic Acid Liquid 250 MG/5 ML SOLUTION 400 MG PO ×3 (07:50→20:35)
[2024-12-22] MEDS: Albuterol/Iprat 2.5/0.5MG 3 ML AMPUL.NEB INHALE ×2 (08:50→19:36)
[2024-12-22 09:37] LABS: Alanine Aminotransferase 41 U/L (0-40); Albumin Level 4.1 g/dL (3.5-5.0); Alkaline Phosphatase 47 U/L (39-117); Anion Gap 16 (12-20); Aspartate Amino Transferase 78 U/L (5-37); Blood Urea Nitrogen 33 mg/dL (9-16); Calcium 9.8 mg/dL (8.4-10.2); Carbon Dioxide 18 mmol/L (22-29); Chloride 107 mmol/L (96-108); Creatinine Clr Calc Pharmacy 68.8; Estimated Glomerular Filt Rate > 60; Potassium 4.4 mmol/L (3.3-5.1); Sodium 137 mmol/L (135-145); Total Protein 8.4 g/dL (6.5-8.0)
--- NOTE | 2024-12-22 11:23 | MHC.SL.SWA ---
Speech Pathologist Impression: Risk of Aspiration Due to: Dysphasia Diet Status: Recommend DOWNGRADE to puree (NDD1) with THIN liquids, pills crushed in puree. ALTERNATE solids with liquids to help reduce period of patient munching and pocketing food. Encourage patient to self feed, however provided 1-1 assistance with cuing if patient does not initiate. Given length of time patient is taking to ingest food due to his behaviors, smaller more frequent meals may be needed to encourage nutritional intake (e.g. remove items from tray to be given as a 'snack at a later time). Liquid Consistency and Strategies for Safe Swallow: Liquid Intake Recommendation: Thin Liquid Intake Strategies: Solid Food Consistency: Dietary Recommendations: Pureed (NDD1) Additional Modifications to Solid Foods: ALTERNATE bites of puree with sips of liquid to interrupt prolonged munching /oral pocketing of food. Discontinue with any clinical signs of aspiration. Oral Medication Intake: Crushed with Puree Please contact the pharmacy regarding appropriate crushable or liquid drug formulations that are available whenever modified delivery is recommended. Compensatory Strategies and Precautions to be Taken for Safe Swallow: Sitting Upright (90 deg) Liquids from Cup Liquids from Straw Small Bites and Sips Alternate Liquids/Solids Rate of Ingestion Change Oral Check Supervision While Eating and Drinking for Safe Swallow: Direct Supervision (1:1) Foods to Avoid: Swallowing Recommended Treatments: Compens. Strategy Educat. Recommendation for Speech: Inpatient Speech Therapy Comment: 12/22/24:Patient seen at breakfast, which upon entering room, CROW Edgar was finishing trying to feed, but having significant difficulty. Edgar reported that patient was munching in a prolonged manner on every bite of food, and waving away additional bites when offered. Patient was exhibiting this behavior at onset, even though last bite of food given was several minutes prior. When patient asked to open mouth, trace amount of food was observed still present, then patient shut mouth and began munching behavior again. Patient also, since initial assessment, has been dependent feeding, and will not initiate independently. ASSISTANT NURSE MANAGER then attempted to continue feeding patient, giving oatmeal that came with meal by tsp. After taking small bite, patient again produced a prolonged period of repetitive munching on this bolus, ignoring cues to swallow and to manage food with tongue v. attempting to chew. When additional bite offered, patient waved it away and continued to munch. Patient then given sip of liquid, which lead to a direct swallow, and cleared bolus. Texture changed to plain puree (yogurt on tray), with patient accepting bites of this, but again munching and not responding to cued to manage the food differently or to swallow. However, when given a sip of liquid after allowing the munching behavior for a period, patient then swallowed bolus. After eating about 2/3 of the container, patient said No mas. Patient was periodically verbally communicative in [place], but ignored all cuing given and persisted with the behavior. Recommend DOWNGRADE to puree (NDD1) with THIN liquids, pills crushed in puree. ALTERNATE solids with liquids to help reduce period of patient munching and pocketing food. Encourage patient to self feed, however provided 1-1 assistance with cuing if patient does not initiate. Given length of time patient is taking to ingest food due to his behaviors, smaller more frequent meals may be needed to encourage nutritional intake (e.g. remove items from tray to be given as a 'snack at a later time). ASSISTANT NURSE MANAGER adjusted [facility], annotated white board in room, advised RN and PRINCIPAL SYSTEMS ENGINEER of recommendation. Frequency/Duration: Date Range for Service Req: Timeline to reassess: Refractory Technician Clinican/Clinical Fellow: No Supervisory Statement: I have reviewed and agree with the student/clinical fellow's documentation: N/A Speech Language Pathologist: Gretchen Walton M.A., [facility]-ASSISTANT NURSE MANAGER
--- NOTE | 2024-12-22 12:21 | MHC.RECOVRN ---
Met with pt in 446 for f/u with presence of [facility]. Pt appeared to be calm, comfortable, and in good spirits. Pt asking about d/c date. Pt denied any withdrawal symptoms. Pt stated he is on methadone that he gets from [place] but was not able to disclose what dose he was taking. [facility] clinics in [place] were called and had no record of patient being there. Pt's HCP was called and confirmed that pt was on methadone over a year ago at [facility] in [place]. Clinic was called and was able to confirm this. Pt utox (+) for methadone, fentanyl, and opiates, possibly obtaining methadone from other source and is a poor historian. Pt declining all recovery support/intervention and stating he feels good , denying any withdrawal symptoms. Pt encouraged to reach out to the ACS team or primary RN with any new questions or concerns, none offered at this time. Dr Sales and primary RN were made aware and will continue to monitor pt.
--- NOTE | 2024-12-22 14:26 | MHC.CM.PN ---
Per ROUNDS discussion, Patient is medically cleared for dc to SNF/STR today. Patient has multiple SNF denials and SNF search has been expanded. CM will continue to follow.
--- NOTE | 2024-12-22 16:14 | HO.PM.IMPN ---
Subjective Subjective Date of Service: 12/22/24 Interval History: drug use , aspiration Review of Systems Shortness of breaths improved, mental status baseline as per son Physical Exam Exam: Exam: Appearance: Alert.? Oriented . cvs: [id number], [id number]. res: air entry diminshed at bases.no rales or wheezing abd: no rebound or guarding ,nt, bs present. ext pulses present , no cyanosis . neuro: nonfocal. Vital Signs: Vital Signs: Last Vital Signs Temp 97.4 F 12/22/24 15:45 Pulse 72 12/22/24 15:45 Resp 18 12/22/24 15:45 BP 124/64 12/22/24 15:45 Pulse Ox 98 12/22/24 15:45 O2 Del Method Room Air 12/22/24 15:45 O2 Flow Rate 2 12/18/24 18:00 FiO2 30 12/18/24 10:50 BMI result Body Mass Index 22.8 Objective Data Active Medications Albuterol/Ipratropium (Albuterol/Iprat 2.5/0.5mg 3 Ml Ampul.Neb) 3 ml INHALE RQ6H WHILE AWAKE [facility] Last Admin: 12/22/24 14:01 Dose: Not Given Documented By: MAGGI Non-Admin Reason: Patient Refused Amitriptyline HCl (Amitriptyline Hcl 10 Mg Tablet) 20 mg PO BEDTIME [facility] Last Admin: 12/21/24 20:21 Dose: 20 mg Documented By: HOA Calcium Carbonate/Cholecalciferol (Calcium + Vitamin D 250 Mg Tablet) 500 mg PO BID [facility] Last Admin: 12/22/24 07:49 Dose: 500 mg Documented By: STACEY Cyanocobalamin (Cyanocobalamin (Vitamin B-12) 1,000 Mcg Tablet) 1,000 mcg PO DAILY [facility] Last Admin: 12/22/24 07:49 Dose: 1,000 mcg Documented By: STACEY Famotidine (Famotidine 20 Mg Tablet) 20 mg PO DAILY@0630 [facility] Last Admin: 12/22/24 06:02 Dose: 20 mg Documented By: PABLO Heparin Sodium (Porcine) (Heparin Sodium,Porcine 5,000 Unit/Ml Vial) 5,000 unit SUBCUT Q8H [facility] Last Admin: 12/22/24 14:23 Dose: 5,000 unit Documented By: STACEY Levofloxacin (Levaquin) 750 mg in 150 mls @ 100 mls/hr IV Q48H [facility] Last Infusion: 12/21/24 18:42 Dose: Infused Documented By: YUMIKO Memantine (Memantine Hcl 5 Mg Tablet) 5 mg PO BID [facility] Last Admin: 12/22/24 07:49 Dose: 5 mg Documented By: STACEY Naloxone HCl (Naloxone Hcl 0.4 Mg/Ml Vial) 0.2 mg IVPUSH Q2M PRN PRN Reason: Excessive sedation or RR < 8 Quetiapine Fumarate (Quetiapine Fumarate 100 Mg Tablet) 100 mg PO BEDTIME [facility] Last Admin: 12/21/24 20:20 Dose: 100 mg Documented By: HOA Valproic Acid (Valproic Acid Liquid 250 Mg/5 Ml Solution) 400 mg PO TID [facility] Last Admin: 12/22/24 14:23 Dose: 400 mg Documented By: STACEY Vitamin D (Cholecalciferol (Vitamin D3) 25 Mcg Tablet) 50 mcg PO DAILY [facility] Last Admin: 12/22/24 07:49 Dose: 50 mcg Documented By: STACEY Labs 12/20/24 05:42 12/22/24 09:15 Labs: Laboratory Results - last 24 hr 12/22/24 09:15 Anion Gap 16 Estim Creat Clear Calc 68.8 Estimated GFR > 60 Random Glucose 89 Calcium 9.8 Total Bilirubin 0.4 AST 78 H ALT 41 H Alkaline Phosphatase 47 Total Protein 8.4 H Albumin 4.1 Microbiology Microbiology Results: Microbiology 12/17/24 09:40 Blood Culture - Final Blood - Venous No growth after 5 days. 12/17/24 09:40 Blood Culture - Final Blood - Venous No growth after 5 days. Assessment and Plan (1) Aspiration pneumonia: Status: Acute Plan 74-year-old gentleman with underlying polysubstance abuse presented by EMS for evaluation of unresponsiveness and respiratory distress. On ER evaluation with respiratory distress with poor response to initial BiPAP support requiring intubation and ventilatory support. Also noted to have acute renal failure with metabolic acidosis and hyperkalemia. Admitted to the intensive care unit. Extubated uneventfully on 12/18/2024. Acute respiratory distress and hypoxia requiring intubation and ventilatory support, likely secondary to an aspiration pneumonia . Extubated on 12/18/2024. Continue to titrate off supplemental oxygen as tolerated. Continue IV antibiotics ,taper oxygen echo:Normal left ventricular cavity size. There is normal left ventricular wall thickness. The left ventricular systolic function is low normal. The visually estimated ejection fractionis between 50-55%. Polysubstance use: Addition consult added. GERD - famotidine mood disorder - continue home medications: amitriptylline, valproate, quetiapine, gabapentin tobacco abuse - NRT VTE ppx - enoxaparin wound care: Recommendations: 1. Turn and Reposition every 2 hours and as needed for patient comfort.? Use pillows or wedges to support off loading positions. 2. Off Load all bony prominences with use of pillows and heel boots if needed.? Apply Preventative foams where needed. ? 3. Monitor for incontinence and moisture control, use barrier creams when needed for prevention and treatment. 4. Provide adequate and supplemental nutrition.? 5. Order low air loss mattress. 6. When applicable maintain blood glucose levels per Providers order. Forehead - monitor for resolution - may leave BUSINESS PRACTICES SUPERVISOR. Coccyx and Buttock - Off Load Pressure with Q2 hr turns and use of pillows - Routine cleansing.? Apply skin prep allow to dry.? Cover with foam dressing to aid in off loading and protection from friction. Change every 3 days and PRN. Pt eval ongoing need:Acute respiratory distress and hypoxia requiring intubation and ventilatory support, likely secondary to an aspiration pneumonia -need iv antibiotics , taper oxygen and addiction. Quality Stroke Does the patient have a stroke diagnosis?: No VTE Prior VTE?: No VTE Risk Level:: Medical - moderate - high VTE Device Contraindication: Treatment Not Indicated VTE Drug Contraindication: N/A - Med Ordered
[2024-12-23] VITALS (7 sets, daily range): BP systolic 101–154; BP diastolic 70–83; PULSE 77–89; RESP 16–18; TEMP 36.1–36.4; O2SAT 90–96; BMI 22.9
[2024-12-23] MEDS: Albuterol/Iprat 2.5/0.5MG 3 ML AMPUL.NEB INHALE ×2 (07:38→20:27)
[2024-12-23 09:15] LABS: Hematocrit 38.2 % (42.0-52.0); Hemoglobin 12.8 g/dl (14.0-18.0)
[2024-12-23 10:03] LABS: Alanine Aminotransferase 35 U/L (0-40); Albumin Level 4.2 g/dL (3.5-5.0); Alkaline Phosphatase 48 U/L (39-117); Anion Gap 16 (12-20); Aspartate Amino Transferase 49 U/L (5-37); Blood Urea Nitrogen 27 mg/dL (9-16); Calcium 9.8 mg/dL (8.4-10.2); Carbon Dioxide 23 mmol/L (22-29); Chloride 104 mmol/L (96-108); Creatinine Clr Calc Pharmacy 64.2; Estimated Glomerular Filt Rate > 60; Potassium 3.7 mmol/L (3.3-5.1); Sodium 139 mmol/L (135-145); Total Protein 7.8 g/dL (6.5-8.0)
[2024-12-23 10:29] LABS: Mean Corpuscular HGB Conc 32.9 g/dl (31.0-36.0); Mean Corpuscular Hemoglobin 28.8 pg (27.0-33.0); Mean Corpuscular Volume 87.4 fL (80.0-98.0); NRBC Abs Auto 0.000 X10*3/uL (0.0-0.012); NRBC Pct Auto 0.0 /100WBC (0.0-0.2); Platelet Count 237 X10*3/uL (160-400); Red Blood Count 4.38 X10*6/uL (4.60-5.80); WBC ABN SCTR FOR CBC 1; White Blood Count 10.5 X10*3/uL (4.8-10.8)
[2024-12-23 11:03] LABS: Atypical Lymph Absolute Manual 0.3 x10*3/uL; Atypical Lymphs Percent Manual 3 % (0-6); Band Neutrophils Percent 2 % (3-5); Lymphocytes Absolute Manual 3.5 X10*3/uL (1.2-4.9); Lymphocytes Percent Manual 33 % (20-40); Metamyelocytes Absolute 0.1 X10*3/uL; Metamyelocytes Percent 1 %; Monocytes Absolute Manual 0.4 X10*3/uL (0.1-1.2); Monocytes Percent Manual 4 % (2-11); Myelocytes Absolute 0.4 X10*/uL; Myelocytes Percent 4 %; Neutrophils Absolute Manual 5.8 X10*3/uL (2.0-8.3); Neutrophils Percent Manual 53 % (45-73)
--- NOTE | 2024-12-23 11:04 | MHC.CLN ---
F/U PT WITH INCREASED NUTRITION RISK R/T PRESSURE INJURY PO INTAKE VARIABLE RANGING FROM 0-75% DIET RX: DOWNGRADED TO PUREED PER PAINTER HELPER SPRAY RECEIVING ENSURE BID TO PROMOTE WOUND HEALING SUPP PROVIDES 700KCALS, 40G PROTEIN WITH 100% ACCEPTANCE MONITOR PO INTAKE AND ENCOURAGE SUPPLEMENTS
[2024-12-23 11:05] LABS: Acanthocytes 1+ (0-2) /OIF; Large Platelet PRESENT; Ovalocytes 1+ (5-14) /OIF; RBC Morphology NOTED; Tear Drop Cells 1+ (0-2) /OIF
[2024-12-23] MEDS: Valproic Acid Liquid 250 MG/5 ML SOLUTION 400 MG PO ×3 (11:05→20:42)
[2024-12-23] MEDS: Calcium + Vitamin D 250 MG TABLET 500 MG PO ×2 (11:05→20:41)
--- NOTE | 2024-12-23 11:24 | MHC.SL.SWA ---
Speech Pathologist Impression: Risk of Aspiration, Oral Phase Dysphagia Dysphasia Diet Status: Recommend continue diet of PUREE (NDD1) with THIN liquids, pills crushed in puree. ALTERNATE solids with liquids to help reduce period of patient munching and pocketing food. Encourage patient to self feed, however provided 1-1 assistance with cuing if patient does not initiate. Given length of time patient is taking to ingest food due to his behaviors, smaller more frequent meals may be needed to encourage nutritional intake (e.g. remove items from tray to be given as a 'snack at a later time). Liquid Consistency and Strategies for Safe Swallow: Liquid Intake Recommendation: Thin Solid Food Consistency: Dietary Recommendations: Pureed (NDD1) Additional Modifications to Solid Foods: ALTERNATE bites of puree with sips of liquid to interrupt prolonged munching /oral pocketing of food. Discontinue with any clinical signs of aspiration. Oral Medication Intake: Crushed with Puree Please contact the pharmacy regarding appropriate crushable or liquid drug formulations that are available whenever modified delivery is recommended. Compensatory Strategies and Precautions to be Taken for Safe Swallow: Sitting Upright (90 deg) Liquids from Cup Liquids from Straw Small Bites and Sips Alternate Liquids/Solids Rate of Ingestion Change Oral Check Supervision While Eating and Drinking for Safe Swallow: Direct Supervision (1:1) Swallowing Recommended Treatments: Compens. Strategy Educat. Recommendation for Speech: Inpatient Speech Therapy Care Navigator Clinican/Clinical Fellow: No Supervisory Statement: I have reviewed and agree with the student/clinical fellow's documentation: N/A Speech Language Pathologist: Silvia Benson M.A., CCC-AUTOMOTIVE MACHINIST
--- NOTE | 2024-12-23 11:31 | MHC.CM.PN ---
IMM 12/23/24, CM CONTACTED PT'S SON/HCP ANGELES TO CONFIRM PREFERRED SNF, ANGELES REPORTS THEY LIVE CLOSE TO [facility] AND [facility] IS PREFERRED AND HAS GONE FOR AUTH. AFTER CM HAD REQUESTED, [facility]S [facility] FRONT DESK CLERK WAS AT BEDSIDE REPORTING PT WAS + FOR TB TWO WKS AGO, THERE WAS SOMETHING ON HIS CXR AND THAT THEY WERE FIGURING OUT THE NEXT STEPS, [facility] FAX NUMBER PROVIDED AND RESULTS WILL BE FAXED. CM ALSO CONTACTED PT'S [facility] PCP DR. CLEMENTS'S OFFICE CONTACTED AT 11:25AM AND LEGAL PROJECT MANAGER REPORTED THEY WOULD CONTACT MEMBERS OF PT'S TEAM MICAELA MCDOWELL AND THIERNO (OUTREACH) TO FOLLWO UP AND HELP EXPEDITE INFO NEEDED. INSURANCE VERIFICATION NOTIFIED VIA TIGER THAT PT ALSO HAS [facility] INSURANCE, PT IS ONLY 30% SERVICE CONNECTED.
--- NOTE | 2024-12-23 17:57 | P.PNIM_ITS ---
Subjective Subjective Date of Service: 12/23/24 Interval History: drug use , aspiration Review of Systems as above. Patient denies any cough or phlegm or shortness of breath or any fever. Physical Exam 2 Exam: Exam: Appearance: Alert.? Oriented . cvs: rrr, [id number]. res: air entry diminshed at bases.no rales or wheezing abd: no rebound or guarding ,nt, bs present. ext pulses present , no cyanosis . neuro: nonfocal. Vital Signs: Vital Signs: Last Vital Signs Temp 97.4 F 12/23/24 16:00 Pulse 89 12/23/24 16:00 Resp 18 12/23/24 16:00 BP 122/83 12/23/24 16:00 Pulse Ox 96 12/23/24 16:00 O2 Del Method Room Air 12/23/24 16:00 O2 Flow Rate 2 12/18/24 18:00 FiO2 30 12/18/24 10:50 BMI result Body Mass Index 22.9 Objective Data Active Medications Albuterol/Ipratropium (Albuterol/Iprat 2.5/0.5mg 3 Ml Ampul.Neb) 3 ml INHALE RQ6H WHILE AWAKE [facility] Last Admin: 12/23/24 15:07 Dose: Not Given Documented By: LUIS Non-Admin Reason: Patient Asleep Amitriptyline HCl (Amitriptyline Hcl 10 Mg Tablet) 20 mg PO BEDTIME [facility] Last Admin: 12/22/24 20:35 Dose: 20 mg Documented By: TOD Calcium Carbonate/Cholecalciferol (Calcium + Vitamin D 250 Mg Tablet) 500 mg PO BID [facility] Last Admin: 12/23/24 11:05 Dose: 500 mg Documented By: MARGE Cyanocobalamin (Cyanocobalamin (Vitamin B-12) 1,000 Mcg Tablet) 1,000 mcg PO DAILY [facility] Last Admin: 12/23/24 11:05 Dose: 1,000 mcg Documented By: MARGE Famotidine (Famotidine 20 Mg Tablet) 20 mg PO DAILY@0630 [facility] Last Admin: 12/23/24 06:12 Dose: 20 mg Documented By: TOD Heparin Sodium (Porcine) (Heparin Sodium,Porcine 5,000 Unit/Ml Vial) 5,000 unit SUBCUT Q8H [facility] Last Admin: 12/23/24 14:53 Dose: 5,000 unit Documented By: FIGDIAN Levofloxacin (Levofloxacin 750 Mg Tablet) 750 mg PO Q48H [facility] Last Admin: 12/23/24 11:05 Dose: 750 mg Documented By: FIGDIAN Memantine (Memantine Hcl 5 Mg Tablet) 5 mg PO BID [facility] Last Admin: 12/23/24 11:05 Dose: 5 mg Documented By: FIGDIAN Naloxone HCl (Naloxone Hcl 0.4 Mg/Ml Vial) 0.2 mg IVPUSH Q2M PRN PRN Reason: Excessive sedation or RR < 8 Quetiapine Fumarate (Quetiapine Fumarate 100 Mg Tablet) 100 mg PO BEDTIME [facility] Last Admin: 12/22/24 20:35 Dose: 100 mg Documented By: BELANGB Valproic Acid (Valproic Acid Liquid 250 Mg/5 Ml Solution) 400 mg PO TID [facility] Last Admin: 12/23/24 14:52 Dose: 400 mg Documented By: FIGDISARAH Vitamin D (Cholecalciferol (Vitamin D3) 25 Mcg Tablet) 50 mcg PO DAILY [facility] Last Admin: 12/23/24 11:05 Dose: 50 mcg Documented By: FIGDISARAH Labs 12/23/24 08:37 12/23/24 09:43 Labs: Laboratory Results - last 24 hr 12/23/24 12/23/24 08:37 09:43 MCV 87.4 MCH 28.8 MCHC 32.9 RDW 15.2 Plt Count 237 D MPV 10.7 Immature Gran % (Auto) Cancelled Neut % (Auto) Cancelled Lymph % (Auto) Cancelled [place] % (Auto) Cancelled Eos % (Auto) Cancelled Baso % (Auto) Cancelled Lymph # (Auto) Cancelled [place] # (Auto) Cancelled Eos # (Auto) Cancelled Baso # (Auto) Cancelled Abs Immat Gran (auto) Cancelled Absolute Neuts (auto) Cancelled Absolute Nucleated RBC 0.000 Nucleated RBC % (auto) 0.0 Neutrophils % (Manual) 53 Band Neutrophils % 2 L Lymphocytes % (Manual) 33 Atypical Lymphs % (Man) 3 Monocytes % (Manual) 4 Metamyelocytes % 1 Myelocytes % 4 Abs Neuts (Manual) 5.8 Lymphocytes # (Manual) 3.5 Atyp Lymphs # (Manual) 0.3 Monocytes # (Manual) 0.4 Metamyelocytes # 0.1 Myelocytes # 0.4 Platelet Estimate NORMAL Large Platelets PRESENT Plt Morphology Comment NOTED RBC Morphology NOTED Tear Drop Cells 1+ (0-2) Ovalocytes 1+ (5-14) Acanthocytes (Spur) 1+ (0-2) Anion Gap Cancelled 16 Estim Creat Clear Calc Cancelled 64.2 Estimated GFR Cancelled > 60 Random Glucose Cancelled 125 H Calcium Cancelled 9.8 Total Bilirubin 0.4 AST 49 H ALT 35 Alkaline Phosphatase 48 Total Protein 7.8 Albumin 4.2 Assessment and Plan (1) Aspiration pneumonia: Status: Acute Plan 74-year-old gentleman with underlying polysubstance abuse presented by EMS for evaluation of unresponsiveness and respiratory distress. On ER evaluation with respiratory distress with poor response to initial BiPAP support requiring intubation and ventilatory support. Also noted to have acute renal failure with metabolic acidosis and hyperkalemia. Admitted to the intensive care unit. Extubated uneventfully on 12/18/2024. Acute respiratory distress and hypoxia requiring intubation and ventilatory support, likely secondary to an aspiration pneumonia . Extubated on 12/18/2024. Continue to titrate off supplemental oxygen as tolerated. Continue IV antibiotics ,taper oxygen echo:Normal left ventricular cavity size. There is normal left ventricular wall thickness. The left ventricular systolic function is low normal. The visually estimated ejection fractionis between 50-55%. His paperwork reviewed with Pulmonary Dr. Sullivan: Possible latent TB, no need for current isolation. Further management outpatient Polysubstance use: Addition consult added. GERD - famotidine mood disorder - continue home medications: amitriptylline, valproate, quetiapine, gabapentin tobacco abuse - NRT VTE ppx - enoxaparin wound care: Recommendations: 1. Turn and Reposition every 2 hours and as needed for patient comfort.? Use pillows or wedges to support off loading positions. 2. Off Load all bony prominences with use of pillows and heel boots if needed.? Apply Preventative foams where needed. ? 3. Monitor for incontinence and moisture control, use barrier creams when needed for prevention and treatment. 4. Provide adequate and supplemental nutrition.? 5. Order low air loss mattress. 6. When applicable maintain blood glucose levels per Providers order. 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 Coccyx and Buttock - Off Load Pressure with Q2 hr turns and use of pillows - Routine cleansing.? Apply skin prep allow to dry.? Cover with foam dressing to aid in off loading and protection from friction. Change every 3 days and PRN. Pt eval Ongoing need: Placement Quality Stroke Does the patient have a stroke diagnosis?: No VTE Prior VTE?: No VTE Risk Level:: Medical - moderate - high VTE Device Contraindication: Treatment Not Indicated VTE Drug Contraindication: N/A - Med Ordered
[2024-12-24] VITALS (10 sets, daily range): BP systolic 100–154; BP diastolic 60–85; PULSE 64–96; RESP 14–18; TEMP 36.3–37.1; O2SAT 93–97; BMI 23.2
[2024-12-24] MEDS: Albuterol/Iprat 2.5/0.5MG 3 ML AMPUL.NEB INHALE ×3 (07:55→21:25)
[2024-12-24] MEDS: Valproic Acid Liquid 250 MG/5 ML SOLUTION 400 MG PO ×3 (08:15→20:32)
[2024-12-24] MEDS: Calcium + Vitamin D 250 MG TABLET 500 MG PO ×2 (08:15→20:32)
--- NOTE | 2024-12-24 14:27 | HO.PM.IMPN ---
Subjective Subjective Date of Service: 12/24/24 Interval History: drug use , aspiration Review of Systems no new c/o Physical Exam Exam: Exam: Appearance: Alert.? Oriented . cvs: [id number], [id number]. res: air entry diminshed at bases.no rales or wheezing abd: no rebound or guarding ,nt, bs present. ext pulses present , no cyanosis . neuro: nonfocal. Vital Signs: Vital Signs: Last Vital Signs Temp 97.4 F 12/24/24 11:16 Pulse 83 12/24/24 11:16 Resp 18 12/24/24 11:16 BP 117/73 12/24/24 11:16 Pulse Ox 96 12/24/24 11:16 O2 Del Method Room Air 12/24/24 11:16 O2 Flow Rate 2 12/18/24 18:00 FiO2 30 12/18/24 10:50 BMI result Body Mass Index 23.2 Objective Data Active Medications Albuterol/Ipratropium (Albuterol/Iprat 2.5/0.5mg 3 Ml Ampul.Neb) 3 ml INHALE RQ6H WHILE AWAKE [facility] Last Admin: 12/24/24 07:55 Dose: 3 ml Documented By: JOEL Amitriptyline HCl (Amitriptyline Hcl 10 Mg Tablet) 20 mg PO BEDTIME [facility] Last Admin: 12/23/24 20:41 Dose: 20 mg Documented By: TOD Calcium Carbonate/Cholecalciferol (Calcium + Vitamin D 250 Mg Tablet) 500 mg PO BID [facility] Last Admin: 12/24/24 08:15 Dose: 500 mg Documented By: MARGE Cyanocobalamin (Cyanocobalamin (Vitamin B-12) 1,000 Mcg Tablet) 1,000 mcg PO DAILY [facility] Last Admin: 12/24/24 08:15 Dose: 1,000 mcg Documented By: MARGE Famotidine (Famotidine 20 Mg Tablet) 20 mg PO DAILY@0630 [facility] Last Admin: 12/24/24 06:25 Dose: 20 mg Documented By: TOD Heparin Sodium (Porcine) (Heparin Sodium,Porcine 5,000 Unit/Ml Vial) 5,000 unit SUBCUT Q8H [facility] Last Admin: 12/24/24 06:25 Dose: 5,000 unit Documented By: HO.BELANGB Levofloxacin (Levofloxacin 750 Mg Tablet) 750 mg PO Q48H [facility] Last Admin: 12/23/24 11:05 Dose: 750 mg Documented By: FIGTONIE Memantine (Memantine Hcl 5 Mg Tablet) 5 mg PO BID [facility] Last Admin: 12/24/24 08:15 Dose: 5 mg Documented By: FIGMARIANGELAN Naloxone HCl (Naloxone Hcl 0.4 Mg/Ml Vial) 0.2 mg IVPUSH Q2M PRN PRN Reason: Excessive sedation or RR < 8 Quetiapine Fumarate (Quetiapine Fumarate 100 Mg Tablet) 100 mg PO BEDTIME [facility] Last Admin: 12/23/24 20:42 Dose: 100 mg Documented By: BELANGB Valproic Acid (Valproic Acid Liquid 250 Mg/5 Ml Solution) 400 mg PO TID [facility] Last Admin: 12/24/24 08:15 Dose: 400 mg Documented By: MARIE.FIGTONIE Vitamin D (Cholecalciferol (Vitamin D3) 25 Mcg Tablet) 50 mcg PO DAILY [facility] Last Admin: 12/24/24 08:15 Dose: 50 mcg Documented By: MARGE Labs 12/23/24 08:37 12/23/24 09:43 Assessment and Plan (1) Aspiration pneumonia: Status: Acute Plan 74-year-old gentleman with underlying polysubstance abuse presented by EMS for evaluation of unresponsiveness and respiratory distress. On ER evaluation with respiratory distress with poor response to initial BiPAP support requiring intubation and ventilatory support. Also noted to have acute renal failure with metabolic acidosis and hyperkalemia. Admitted to the intensive care unit. Extubated uneventfully on 12/18/2024. Acute respiratory distress and hypoxia requiring intubation and ventilatory support, likely secondary to an aspiration pneumonia . Extubated on 12/18/2024. Continue to titrate off supplemental oxygen as tolerated. Continue IV antibiotics ,taper oxygen echo:Normal left ventricular cavity size. There is normal left ventricular wall thickness. The left ventricular systolic function is low normal. The visually estimated ejection fractionis between 50-55%. His paperwork reviewed with Pulmonary Dr. Sullivan: Possible latent TB, no need for current isolation. Further management outpatient Polysubstance use: Addition consult added. GERD - famotidine mood disorder - continue home medications: amitriptylline, valproate, quetiapine, gabapentin tobacco abuse - NRT VTE ppx - enoxaparin wound care: Recommendations: 1. Turn and Reposition every 2 hours and as needed for patient comfort.? Use pillows or wedges to support off loading positions. 2. Off Load all bony prominences with use of pillows and heel boots if needed.? Apply Preventative foams where needed. ? 3. Monitor for incontinence and moisture control, use barrier creams when needed for prevention and treatment. 4. Provide adequate and supplemental nutrition.? 5. Order low air loss mattress. 6. When applicable maintain blood glucose levels per Providers order. Forehead - monitor for resolution - may leave NATALIIA. Coccyx and Buttock - Off Load Pressure with Q2 hr turns and use of pillows - Routine cleansing.? Apply skin prep allow to dry.? Cover with foam dressing to aid in off loading and protection from friction. Change every 3 days and PRN. Pt eval Ongoing need: Placement Quality Stroke Does the patient have a stroke diagnosis?: No VTE Prior VTE?: No VTE Risk Level:: Medical - moderate - high VTE Device Contraindication: Treatment Not Indicated VTE Drug Contraindication: N/A - Med Ordered
--- NOTE | 2024-12-24 16:19 | P.CDIM_ITS ---
PROVIDER RESPONSE TEXT: To clarify, the appropriate diagnosis supported by the clinical indicators: Pressure (decubitus) ulcer, stage 2 forehead QUERY TEXT: PHYSICIAN'S DOCUMENTATION REQUEST Date of Query: 12/23/2024 11:39 AM EDT Patient Name: Mahendra Bashir Admit Date: 12/17/2024 Dear Maile Sales MD, A review of the medical record indicates additional documentation may be needed. Please review below and update the documentation accordingly. Clinical Indicators: per Wound note Forehead stage 2 pressure injury-device related-forehead CO2 sensor 2 areas Continue to off load pressure - no device in use at this time- May leave TIMBER HAND Based on the above, could you please provide further information regarding the ulcer/wound: Pressure (decubitus) ulcer, stage 2 forehead Other (explain) Clinically unable to determine (explain) Thank you, Katerina Campos RN Use of terms such as suspected, likely, concern for, or probable (associated with a specific diagnosis that is being evaluated, monitored, or treated as if it exists) are acceptable and can be coded in the inpatient setting, when documented at the time of discharge. Please use your independent medical judgment in providing your response. THIS QUERY IS PART OF THE PERMANENT MEDICAL RECORD
[2024-12-25 03:50] VITALS: BP 114/58; PULSE 86; RESP 18; TEMP 36.9; O2SAT 97
[2024-12-25 06:00] VITALS: BMI 23.0
[2024-12-25 07:02] VITALS: BP 105/63; PULSE 80; RESP 18; TEMP 37.1; O2SAT 95
[2024-12-25] MEDS: Calcium + Vitamin D 250 MG TABLET 500 MG PO ×2 (10:46→22:19)
[2024-12-25] MEDS: Valproic Acid Liquid 250 MG/5 ML SOLUTION 400 MG PO ×3 (10:47→22:20)
[2024-12-25 11:08] VITALS: BP 130/79; PULSE 80; RESP 18; TEMP 37.1; O2SAT 96
[2024-12-25 15:15] VITALS: BP 124/60; RESP 84; TEMP 37.2; O2SAT 97
--- NOTE | 2024-12-25 18:44 | P.PNIM_ITS ---
Subjective Subjective Date of Service: 12/25/24 Interval History: drug use , aspiration Review of Systems No new complaints Review of Systems: Yes all other systems are reviewed and are negative Physical Exam 2 Exam: Exam: Appearance: Alert.? Oriented . cvs: [id number], [id number]. res: air entry diminshed at bases.no rales or wheezing abd: no rebound or guarding ,nt, bs present. ext pulses present , no cyanosis . neuro: nonfocal. Vital Signs: Vital Signs: Last Vital Signs Temp 98.9 F 12/25/24 15:15 Pulse 80 12/25/24 11:08 Resp 84 H 12/25/24 15:15 BP 124/60 12/25/24 15:15 Pulse Ox 97 12/25/24 15:15 O2 Del Method Room Air 12/25/24 15:15 O2 Flow Rate 2 12/18/24 18:00 FiO2 30 12/18/24 10:50 BMI result Body Mass Index 23.0 Objective Data Active Medications Amitriptyline HCl (Amitriptyline Hcl 10 Mg Tablet) 20 mg PO BEDTIME [facility] Last Admin: 12/24/24 20:32 Dose: 20 mg Documented By: TOD Calcium Carbonate/Cholecalciferol (Calcium + Vitamin D 250 Mg Tablet) 500 mg PO BID [facility] Last Admin: 12/25/24 10:46 Dose: 500 mg Documented By: MARGE Cyanocobalamin (Cyanocobalamin (Vitamin B-12) 1,000 Mcg Tablet) 1,000 mcg PO DAILY [facility] Last Admin: 12/25/24 10:47 Dose: 1,000 mcg Documented By: MARGE Famotidine (Famotidine 20 Mg Tablet) 20 mg PO DAILY@0630 [facility] Last Admin: 12/25/24 06:29 Dose: 20 mg Documented By: TOD Heparin Sodium (Porcine) (Heparin Sodium,Porcine 5,000 Unit/Ml Vial) 5,000 unit SUBCUT Q8H [facility] Last Admin: 12/25/24 12:58 Dose: 5,000 unit Documented By: MARGE Levofloxacin (Levofloxacin 750 Mg Tablet) 750 mg PO Q48H [facility] Last Admin: 12/25/24 10:47 Dose: 750 mg Documented By: MARGE Memantine (Memantine Hcl 5 Mg Tablet) 5 mg PO BID [facility] Last Admin: 12/25/24 10:46 Dose: 5 mg Documented By: MARGE Naloxone HCl (Naloxone Hcl 0.4 Mg/Ml Vial) 0.2 mg IVPUSH Q2M PRN PRN Reason: Excessive sedation or RR < 8 Quetiapine Fumarate (Quetiapine Fumarate 100 Mg Tablet) 100 mg PO BEDTIME [facility] Last Admin: 12/24/24 20:32 Dose: 100 mg Documented By: BELANGSilvio Valproic Acid (Valproic Acid Liquid 250 Mg/5 Ml Solution) 400 mg PO TID [facility] Last Admin: 12/25/24 15:22 Dose: 400 mg Documented By: MARGE Vitamin D (Cholecalciferol (Vitamin D3) 25 Mcg Tablet) 50 mcg PO DAILY [facility] Last Admin: 12/25/24 10:47 Dose: 50 mcg Documented By: MARGE Labs 12/23/24 08:37 12/23/24 09:43 Assessment and Plan (1) Aspiration pneumonia: Status: Acute Plan 74-year-old gentleman with underlying polysubstance abuse presented by EMS for evaluation of unresponsiveness and respiratory distress. On ER evaluation with respiratory distress with poor response to initial BiPAP support requiring intubation and ventilatory support. Also noted to have acute renal failure with metabolic acidosis and hyperkalemia. Admitted to the intensive care unit. Extubated uneventfully on 12/18/2024. Acute respiratory distress and hypoxia requiring intubation and ventilatory support, likely secondary to an aspiration pneumonia . Extubated on 12/18/2024. Continue to titrate off supplemental oxygen as tolerated. Continue IV antibiotics ,taper oxygen echo:Normal left ventricular cavity size. There is normal left ventricular wall thickness. The left ventricular systolic function is low normal. The visually estimated ejection fractionis between 50-55%. His paperwork reviewed with Pulmonary Dr. Sullivan: Possible latent TB, no need for current isolation. Further management outpatient Polysubstance use: Addition consult added. GERD - famotidine mood disorder - continue home medications: amitriptylline, valproate, quetiapine, gabapentin tobacco abuse - NRT VTE ppx - enoxaparin wound care: Recommendations: 1. Turn and Reposition every 2 hours and as needed for patient comfort.? Use pillows or wedges to support off loading positions. 2. Off Load all bony prominences with use of pillows and heel boots if needed.? Apply Preventative foams where needed. ? 3. Monitor for incontinence and moisture control, use barrier creams when needed for prevention and treatment. 4. Provide adequate and supplemental nutrition.? 5. Order low air loss mattress. 6. When applicable maintain blood glucose levels per Providers order. Forehead - monitor for resolution - may leave VOLUNTEER SERVICES DIRECTOR. Coccyx and Buttock - Off Load Pressure with Q2 hr turns and use of pillows - Routine cleansing.? Apply skin prep allow to dry.? Cover with foam dressing to aid in off loading and protection from friction. Change every 3 days and PRN. Pt eval Ongoing need: Placement Quality Stroke Does the patient have a stroke diagnosis?: No VTE Prior VTE?: No VTE Risk Level:: Medical - moderate - high VTE Device Contraindication: Treatment Not Indicated VTE Drug Contraindication: N/A - Med Ordered
[2024-12-25 20:00] VITALS: BP 119/77; PULSE 84; RESP 20; TEMP 36.6; O2SAT 96
[2024-12-26] VITALS (7 sets, daily range): BP systolic 93–111; BP diastolic 57–71; PULSE 77–89; RESP 16–20; TEMP 36.2–36.8; O2SAT 93–96; BMI 23.2
[2024-12-26] MEDS: Calcium + Vitamin D 250 MG TABLET 500 MG PO ×2 (09:06→20:12)
[2024-12-26] MEDS: Valproic Acid Liquid 250 MG/5 ML SOLUTION 400 MG PO ×3 (09:06→20:12)
--- NOTE | 2024-12-26 14:20 | MHC.SL.SWA ---
Speech Pathologist Impression: Oral phase dysphagia primarily d/t weakness, though reduced self-awareness further exacerbates risk for aspiration. No changes recommended to pt diet: NDD1 with thins, 1:1 assist, recc wedge pillow to prop pt up when eating. COLOR WEIGHER continues to follow. Risk of Aspiration Due to: Dysphasia Diet Status: Recommend continue diet of PUREE (NDD1) with THIN liquids, pills crushed in puree. ALTERNATE solids with liquids. Liquid Consistency and Strategies for Safe Swallow: Liquid Intake Recommendation: Thin Liquid Intake Strategies: Solid Food Consistency: Dietary Recommendations: Pureed (NDD1) Additional Modifications to Solid Foods: ALTERNATE bites of puree with sips of liquid. Discontinue with any clinical signs of aspiration. Oral Medication Intake: Crushed with Puree Please contact the pharmacy regarding appropriate crushable or liquid drug formulations that are available whenever modified delivery is recommended. Compensatory Strategies and Precautions to be Taken for Safe Swallow: Sitting Upright (90 deg) Liquids from Cup Liquids from Straw Small Bites and Sips Alternate Liquids/Solids Rate of Ingestion Change Oral Check Supervision While Eating and Drinking for Safe Swallow: Direct Supervision (1:1) Foods to Avoid: Swallowing Recommended Treatments: Compens. Strategy Educat. Recommendation for Speech: Inpatient Speech Therapy Comment: Pt leaning to the L in bed, attempting to feed himself. Pt able to hold container and maneauver utensil to self-feed. COLOR WEIGHER and BUSINESS INTERN repositioned pt more upright, centered in bed with HOB elevated to 80degrees; however, pt leans his upper body to the left. Pt tolerated purees and thins by cup and straw sips. No oral residuals as pt sipped liquids to clear. Pt did not exhibit overt s/s of aspiration during intake of purees/thins. Trials of solids provided, pt coughed s/p swallow of second bolus. Oral phase dysphagia evident as pt unable to formulate bolus with rotary mastication. Oral phase dysphagia primarily d/t weakness, though reduced self-awareness further exacerbates risk for aspiration. No changes recommended to pt diet: NDD1 with thins, 1:1 assist, recc wedge pillow to prop pt up when eating. COLOR WEIGHER continues to follow. COLOR WEIGHER indicated upon d/c d/t nature of dysphagia. Frequency/Duration: Date Range for Service Req: Timeline to reassess: Landscape Nurseryman Clinican/Clinical Fellow: No Supervisory Statement: I have reviewed and agree with the student/clinical fellow's documentation: N/A Speech Language Pathologist: Rosa Daniel M.S., [facility]COLOR WEIGHER
--- NOTE | 2024-12-26 16:08 | MHC.CM.PN ---
CM RECEIVED A MESSAGE THAT THE PTS INSURANCE WAS OFFERING A PEER TO PEER TO DISCUSS REHAB NEEDS, HOWEVER [facility] HAS RESCINDED THE BED OFFER AND THERE ARE CURRENTLY NO FACILITIES FOLLOWING/OFFERING REFERRAL EXPANDED
--- NOTE | 2024-12-26 16:36 | HO.PM.IMPN ---
Subjective Subjective Date of Service: 12/26/24 Interval History: drug use , aspiration Review of Systems No new complaints Review of Systems: Yes all other systems are reviewed and are negative Physical Exam Exam: Exam: Appearance: Alert.? Oriented . cvs: [id number], [id number]. res: air entry diminshed at bases.no rales or wheezing abd: no rebound or guarding ,nt, bs present. ext pulses present , no cyanosis . neuro: nonfocal. Vital Signs: Vital Signs: Last Vital Signs Temp 97.7 F 12/26/24 12:00 Pulse 77 12/26/24 12:00 Resp 18 12/26/24 12:00 BP 100/67 12/26/24 12:00 Pulse Ox 96 12/26/24 12:00 O2 Del Method Room Air 12/26/24 12:00 O2 Flow Rate 2 12/18/24 18:00 FiO2 30 12/18/24 10:50 BMI result Body Mass Index 23.2 Objective Data Active Medications Amitriptyline HCl (Amitriptyline Hcl 10 Mg Tablet) 20 mg PO BEDTIME [facility] Last Admin: 12/25/24 22:19 Dose: 20 mg Documented By: RANDY Calcium Carbonate/Cholecalciferol (Calcium + Vitamin D 250 Mg Tablet) 500 mg PO BID [facility] Last Admin: 12/26/24 09:06 Dose: 500 mg Documented By: OMARI Cyanocobalamin (Cyanocobalamin (Vitamin B-12) 1,000 Mcg Tablet) 1,000 mcg PO DAILY [facility] Last Admin: 12/26/24 09:06 Dose: 1,000 mcg Documented By: OMARI Famotidine (Famotidine 20 Mg Tablet) 20 mg PO DAILY@0630 [facility] Last Admin: 12/26/24 06:09 Dose: 20 mg Documented By: RANDY Heparin Sodium (Porcine) (Heparin Sodium,Porcine 5,000 Unit/Ml Vial) 5,000 unit SUBCUT Q8H [facility] Last Admin: 12/26/24 15:43 Dose: 5,000 unit Documented By: YUMIKO Levofloxacin (Levofloxacin 750 Mg Tablet) 750 mg PO Q48H [facility] Last Admin: 12/25/24 10:47 Dose: 750 mg Documented By: MARGE Memantine (Memantine Hcl 5 Mg Tablet) 5 mg PO BID [facility] Last Admin: 12/26/24 09:06 Dose: 5 mg Documented By: OMARI Naloxone HCl (Naloxone Hcl 0.4 Mg/Ml Vial) 0.2 mg IVPUSH Q2M PRN PRN Reason: Excessive sedation or RR < 8 Quetiapine Fumarate (Quetiapine Fumarate 100 Mg Tablet) 100 mg PO BEDTIME [facility] Last Admin: 12/25/24 22:20 Dose: 100 mg Documented By: RANDY Valproic Acid (Valproic Acid Liquid 250 Mg/5 Ml Solution) 400 mg PO TID [facility] Last Admin: 12/26/24 15:43 Dose: 400 mg Documented By: YUMIKO Vitamin D (Cholecalciferol (Vitamin D3) 25 Mcg Tablet) 50 mcg PO DAILY [facility] Last Admin: 12/26/24 09:06 Dose: 50 mcg Documented By: OMARI Labs 12/23/24 08:37 12/23/24 09:43 Assessment and Plan (1) Aspiration pneumonia: Status: Acute Plan 74-year-old gentleman with underlying polysubstance abuse presented by EMS for evaluation of unresponsiveness and respiratory distress. On ER evaluation with respiratory distress with poor response to initial BiPAP support requiring intubation and ventilatory support. Also noted to have acute renal failure with metabolic acidosis and hyperkalemia. Admitted to the intensive care unit. Extubated uneventfully on 12/18/2024. Acute respiratory distress and hypoxia requiring intubation and ventilatory support, likely secondary to an aspiration pneumonia . Extubated on 12/18/2024. Continue to titrate off supplemental oxygen as tolerated. Continue IV antibiotics ,taper oxygen echo:Normal left ventricular cavity size. There is normal left ventricular wall thickness. The left ventricular systolic function is low normal. The visually estimated ejection fractionis between 50-55%. His paperwork reviewed with Pulmonary Dr. Sullivan: Possible latent TB, no need for current isolation. Further management outpatient Polysubstance use: Addition consult added. GERD - famotidine mood disorder - continue home medications: amitriptylline, valproate, quetiapine, gabapentin tobacco abuse - NRT VTE ppx - enoxaparin wound care: Recommendations: 1. Turn and Reposition every 2 hours and as needed for patient comfort.? Use pillows or wedges to support off loading positions. 2. Off Load all bony prominences with use of pillows and heel boots if needed.? Apply Preventative foams where needed. ? 3. Monitor for incontinence and moisture control, use barrier creams when needed for prevention and treatment. 4. Provide adequate and supplemental nutrition.? 5. Order low air loss mattress. 6. When applicable maintain blood glucose levels per Providers order. Forehead - monitor for resolution - may leave NATALIIA. Coccyx and Buttock - Off Load Pressure with Q2 hr turns and use of pillows - Routine cleansing.? Apply skin prep allow to dry.? Cover with foam dressing to aid in off loading and protection from friction. Change every 3 days and PRN. Pt eval Ongoing need: Placement Quality Stroke Does the patient have a stroke diagnosis?: No VTE Prior VTE?: No VTE Risk Level:: Medical - moderate - high VTE Device Contraindication: Treatment Not Indicated VTE Drug Contraindication: N/A - Med Ordered
[2024-12-27 03:52] VITALS: BP 104/61; PULSE 70; RESP 16; TEMP 36.7; O2SAT 93
[2024-12-27 06:00] VITALS: BMI 22.8
[2024-12-27 07:52] VITALS: BP 103/72; PULSE 78; RESP 18; TEMP 36.6; O2SAT 95
[2024-12-27] MEDS: Valproic Acid Liquid 250 MG/5 ML SOLUTION 400 MG PO ×3 (09:14→20:23)
[2024-12-27] MEDS: Calcium + Vitamin D 250 MG TABLET 500 MG PO ×2 (09:15→20:23)
[2024-12-27 11:23] VITALS: BP 93/71; PULSE 83; RESP 18; TEMP 36.6; O2SAT 97
--- NOTE | 2024-12-27 14:01 | P.PNIM_ITS ---
Subjective Subjective Date of Service: 12/27/24 Interval History: drug use , aspiration Review of Systems no new events Review of Systems: Yes all other systems are reviewed and are negative Physical Exam 2 Exam: Exam: Appearance: Alert.? Oriented . cvs: [id number], [id number]. res: air entry diminshed at bases.no rales or wheezing abd: no rebound or guarding ,nt, bs present. ext pulses present , no cyanosis . neuro: nonfocal. Vital Signs: Vital Signs: Last Vital Signs Temp 97.9 F 12/27/24 11:23 Pulse 83 12/27/24 11:23 Resp 18 12/27/24 11:23 BP 93/71 12/27/24 11:23 Pulse Ox 97 12/27/24 11:23 O2 Del Method Room Air 12/27/24 11:23 O2 Flow Rate 2 12/18/24 18:00 FiO2 30 12/18/24 10:50 BMI result Body Mass Index 22.8 Objective Data Active Medications Amitriptyline HCl (Amitriptyline Hcl 10 Mg Tablet) 20 mg PO BEDTIME [facility] Last Admin: 12/26/24 20:12 Dose: 20 mg Documented By: ALFREDO Calcium Carbonate/Cholecalciferol (Calcium + Vitamin D 250 Mg Tablet) 500 mg PO BID [facility] Last Admin: 12/27/24 09:15 Dose: 500 mg Documented By: OMRAI Cyanocobalamin (Cyanocobalamin (Vitamin B-12) 1,000 Mcg Tablet) 1,000 mcg PO DAILY [facility] Last Admin: 12/27/24 09:14 Dose: 1,000 mcg Documented By: OMARI Famotidine (Famotidine 20 Mg Tablet) 20 mg PO DAILY@0630 [facility] Last Admin: 12/27/24 05:17 Dose: 20 mg Documented By: ALFREDO Heparin Sodium (Porcine) (Heparin Sodium,Porcine 5,000 Unit/Ml Vial) 5,000 unit SUBCUT Q8H [facility] Last Admin: 12/27/24 05:15 Dose: 5,000 unit Documented By: ALFREDO Levofloxacin (Levofloxacin 750 Mg Tablet) 750 mg PO Q48H [facility] Last Admin: 12/25/24 10:47 Dose: 750 mg Documented By: MARGE Memantine (Memantine Hcl 5 Mg Tablet) 5 mg PO BID [facility] Last Admin: 12/27/24 09:15 Dose: 5 mg Documented By: OMARI Naloxone HCl (Naloxone Hcl 0.4 Mg/Ml Vial) 0.2 mg IVPUSH Q2M PRN PRN Reason: Excessive sedation or RR < 8 Quetiapine Fumarate (Quetiapine Fumarate 100 Mg Tablet) 100 mg PO BEDTIME [facility] Last Admin: 12/26/24 20:12 Dose: 100 mg Documented By: ALFREDO Valproic Acid (Valproic Acid Liquid 250 Mg/5 Ml Solution) 400 mg PO TID [facility] Last Admin: 12/27/24 09:14 Dose: 400 mg Documented By: OMARI Vitamin D (Cholecalciferol (Vitamin D3) 25 Mcg Tablet) 50 mcg PO DAILY [facility] Last Admin: 12/27/24 09:15 Dose: 50 mcg Documented By: OMARI Labs 12/23/24 08:37 12/23/24 09:43 Assessment and Plan (1) Aspiration pneumonia: Status: Acute Plan 74-year-old gentleman with underlying polysubstance abuse presented by EMS for evaluation of unresponsiveness and respiratory distress. On ER evaluation with respiratory distress with poor response to initial BiPAP support requiring intubation and ventilatory support. Also noted to have acute renal failure with metabolic acidosis and hyperkalemia. Admitted to the intensive care unit. Extubated uneventfully on 12/18/2024. Acute respiratory distress and hypoxia requiring intubation and ventilatory support, likely secondary to an aspiration pneumonia . Extubated on 12/18/2024. Continue to titrate off supplemental oxygen as tolerated. Continue IV antibiotics ,taper oxygen echo:Normal left ventricular cavity size. There is normal left ventricular wall thickness. The left ventricular systolic function is low normal. The visually estimated ejection fractionis between 50-55%. His paperwork reviewed with Pulmonary Dr. Sullivan: Possible latent TB, no need for current isolation. Further management outpatient Polysubstance use: Addition consult added. GERD - famotidine mood disorder - continue home medications: amitriptylline, valproate, quetiapine, gabapentin tobacco abuse - NRT VTE ppx - enoxaparin wound care: Recommendations: 1. Turn and Reposition every 2 hours and as needed for patient comfort.? Use pillows or wedges to support off loading positions. 2. Off Load all bony prominences with use of pillows and heel boots if needed.? Apply Preventative foams where needed. ? 3. Monitor for incontinence and moisture control, use barrier creams when needed for prevention and treatment. 4. Provide adequate and supplemental nutrition.? 5. Order low air loss mattress. 6. When applicable maintain blood glucose levels per Providers order. Forehead - monitor for resolution - may leave FEEDER TENDER. Coccyx and Buttock - Off Load Pressure with Q2 hr turns and use of pillows - Routine cleansing.? Apply skin prep allow to dry.? Cover with foam dressing to aid in off loading and protection from friction. Change every 3 days and PRN. Pt eval Ongoing need: Placement Quality Stroke Does the patient have a stroke diagnosis?: No VTE Prior VTE?: No VTE Risk Level:: Medical - moderate - high VTE Device Contraindication: Treatment Not Indicated VTE Drug Contraindication: N/A - Med Ordered
[2024-12-27 15:25] VITALS: BP 105/71; PULSE 82; RESP 18; TEMP 36.6; O2SAT 95
--- NOTE | 2024-12-27 15:48 | MHC.SL.SWA ---
Speech Pathologist Impression: oral phase dysphagia Risk of Aspiration Due to: upper dentures only, severely prolonged mastication Dysphasia Diet Status: UPGRADE Liquid Consistency and Strategies for Safe Swallow: Liquid Intake Recommendation: Thin Liquid Intake Strategies: Solid Food Consistency: Dietary Recommendations: Pureed (NDD1) Additional Modifications to Solid Foods: ALTERNATE bites of puree with sips of liquid to interrupt prolonged munching /oral pocketing of food. Discontinue with any clinical signs of aspiration. Oral Medication Intake: Crushed with Puree Please contact the pharmacy regarding appropriate crushable or liquid drug formulations that are available whenever modified delivery is recommended. Compensatory Strategies and Precautions to be Taken for Safe Swallow: Sitting Upright (90 deg) Liquids from Cup Liquids from Straw Small Bites and Sips Alternate Liquids/Solids Rate of Ingestion Change Oral Check Supervision While Eating and Drinking for Safe Swallow: Direct Supervision (1:1) Foods to Avoid: Swallowing Recommended Treatments: Compens. Strategy Educat. Recommendation for Speech: Inpatient Speech Therapy Comment: Recommend UPGRADE to chopped/advanced solids. DIRECT SUPERVISION by nursing d/t need for cueing (small bites, slow rate of ingestion, chew well, finish bite prior introducing more food). Continue pills crushed/whole in puree. ALTERNATE solids with liquids to help reduce period of patient munching and pocketing food. Encourage patient to self feed, however provided 1-1 assistance with cuing if patient does not initiate. CRUSHED STONE GRADER to continue to follow. Section Cutter Clinican/Clinical Fellow: No Supervisory Statement: I have reviewed and agree with the student/clinical fellow's documentation: N/A Speech Language Pathologist: Elizabeth Fernandez M.A., [facility]-CRUSHED STONE GRADER
--- NOTE | 2024-12-27 16:00 | MHC.CM.PN ---
CM met with pt. along with accounts payable bookkeeper, and he did not need accounts payable bookkeeper, he speaks and understands Green[place]ic. CM asked pt. what his understanding of his DCP is, he said he will go back to where he lives with his son in [place]. CM asked if he is willing to go to [facility], he said yes, because he has to walk. He said prior to hosp stay, he did not have home health assistance or use DME. Pt. was eating a piece of cake that was cut in small pieces. He said he is doing better and eating well. Many referrals out, many do not accept his insuance. CM to continue to work on DCP.
[2024-12-27 19:46] VITALS: BP 110/78; PULSE 85; RESP 16; TEMP 36.7; O2SAT 97
[2024-12-27 23:37] VITALS: BP 124/69; PULSE 85; RESP 18; TEMP 36.5; O2SAT 96
[2024-12-28 03:21] VITALS: BP 130/69; PULSE 78; RESP 18; TEMP 36.4; O2SAT 96
[2024-12-28 06:00] VITALS: BMI 22.8
[2024-12-28 07:28] VITALS: BP 81/59; PULSE 81; RESP 16; TEMP 36.8; O2SAT 96
[2024-12-28 07:53] VITALS: BP 90/58
[2024-12-28] MEDS: Calcium + Vitamin D 250 MG TABLET 500 MG PO (07:59)
[2024-12-28] MEDS: Valproic Acid Liquid 250 MG/5 ML SOLUTION 400 MG PO ×2 (07:59→14:08)
[2024-12-28 11:45] VITALS: BP 100/69; PULSE 79; RESP 18; TEMP 36.7; O2SAT 96
--- NOTE | 2024-12-28 11:56 | MHC.SL.SWA ---
Speech Pathologist Impression: Mild oral phase dysphagia, with minimal effect on oral prep phase Risk of Aspiration Due to: Recent hx of CVA Dysphasia Diet Status: Recommend NDD3 (chopped/advanced solids). Continue pills crushed/whole in puree. ALTERNATE solids with liquids. Liquid Consistency and Strategies for Safe Swallow: Liquid Intake Recommendation: Thin Liquid Intake Strategies: Solid Food Consistency: Dietary Recommendations: Pureed (NDD1) Additional Modifications to Solid Foods: Oral Medication Intake: Crushed with Puree Please contact the pharmacy regarding appropriate crushable or liquid drug formulations that are available whenever modified delivery is recommended. Compensatory Strategies and Precautions to be Taken for Safe Swallow: Sitting Upright (90 deg) Liquids from Cup Liquids from Straw Small Bites and Sips Alternate Liquids/Solids Rate of Ingestion Change Supervision While Eating and Drinking for Safe Swallow: Intermittent Supervision Foods to Avoid: Swallowing Recommended Treatments: Compens. Strategy Educat. Recommendation for Speech: Inpatient Speech Therapy Comment: Pt seen for dysphagia treatment, repositioned upright in bed prior to PO intake. Pt alert, able to sit upright without leaning to L side, and motor speech intelligibility within adequate limits. Recovery of function continues to improve. Pt endorsed feeling stronger, speaking better and eating without difficulty. Pt fed himself with good pacing, adequate oropharyngeal coordination and no overt s/s of aspiration. MEDICAL REIMBURSEMENT SPECIALIST reviewed POC. Pt in agreement with MEDICAL REIMBURSEMENT SPECIALIST tx upon d/c, either in rehab facility or through home/OP services to address mild dysarthria and dysphagia. RN consulted, no concerns reported. Frequency/Duration: Date Range for Service Req: Timeline to reassess: Locate Technician Clinican/Clinical Fellow: No Supervisory Statement: I have reviewed and agree with the student/clinical fellow's documentation: N/A Speech Language Pathologist: Rosa Daniel M.S., [facility]-MEDICAL REIMBURSEMENT SPECIALIST
--- NOTE | 2024-12-28 13:15 | MHC.CM.PN ---
Pt DC plan is for STR, he is medically cleared, but is not receiving any accepted STRs. Referral has been expanded to [facility]. CM spoke to pt.'s son, Fran, whom he lives with, and let him know this, and asked if he can go home with services since we cannot find a STR that will accept him. Son said that he can come home with VNA services, and will need [facility] to provide transportation for him. Referrals to go out to VNAs now.
--- NOTE | 2024-12-28 14:02 | PC.NURSE ---
iv adapter outdated, ok to leave out per Mansi CERON
[2024-12-28 15:19] VITALS: BP 99/65; PULSE 85; RESP 18; TEMP 36.6; O2SAT 96
--- NOTE | 2024-12-28 15:51 | MHC.CM.PN ---
Second IMM 12/28/24, Pt. has been medically cleared to DC, he will go home via BLS with family care and Home health services from [facility].
--- NOTE | 2024-12-28 15:54 | PM.DS ---
DS: Providers Provider Date of Service: 12/28/24 Date of admission: 12/17/24 10:54 Date of discharge: 12/28/24 Primary care physician: Moni Kohler MD Consults: 12/19/24 19:07 Consult to Wound Care Routine Reason for consultation: ? mdpi 12/20/24 09:59 Addiction Medicine Provider Routine Consulting Provider: Addiction Covering Reason for consultation: substance abuse Has provider been notified: No DS: Diagnosis Discharge Diagnosis (1) Aspiration pneumonia: Status: Acute DS: Summary Hospital Course Hospital Course: From admission HPI: Date of Service: 12/17/24 Chief Complaint: Altered mental status, respiratory distress 74-year-old gentleman with underlying polysubstance abuse presented by EMS for evaluation of unresponsiveness and respiratory distress. On ER evaluation with respiratory distress with poor response to initial BiPAP support requiring intubation and ventilatory support. Also noted to have acute renal failure with metabolic acidosis and hyperkalemia. Admitted to the intensive care unit. Hospital course: Pt was admitted to the hospital for acute respiratory distress and hypoxia in the setting of likely aspiration pneumonia secondary to polysubstance use. Pt initially placed on BiPAP with poor response and required admission to the ICU for intubation and ventilatory support. Pt also was noted to have acute renal failure with metabolic acidosis and hyperkalemia. Pt was extubated uneventfully on 12/18/2024 and treated with IV antibiotics, IVF, and electrolyte replenishment. Echocardiogram showed normal left ventricular cavity size with normal left ventricular wall thickness. Left ventricular systolic function low normal with estimated EF of 50-55%. Pt completed course of antibiotics while in the hospital. Additional record review indicated pt may have latent TB. Dr. Guzman in pulmonology was consulted who did not think any acute intervention or isolation precautions necessary at this time. Recommended pulmonology follow up outpatient. Pt was seen and evaluated by PT who initially suggested discharge to [facility]. However, after multiple attempts and multiple days case management was unable to find any accepting facilities for pt. After speaking with family and pt, they were agreeable to discharge pt to home with support from his 2 sons and VNA services. Pt will require physical assistance for functional mobility, stair negotiation, and transfers. Should use a rolling walker for ambulation. Pt was also seen by Addiction Medicine and recovery team where pt declined methadone initiation. Reported that he did not want to stop using and does not see a reason to quit. Despite this however pt is strongly encouraged to refrain from illicit substance use and to seek out social and familial support for maintaining sobriety. Pt also noted to have coccyx and buttock wounds. Was seen by wound care who recommended repositioning every 2 hours and off-loading bony prominences with use of pillows or wedges. Wound should be covered with foam dressing which should be changed every 3 days and as needed. Pt will otherwise be discharged on his home medications which he should resume. Time Attestation Discharge Coordination Time (in mins): 35 Quality: Safe Use of Opioids Does Pt have an Active Cancer Diagnosis on the Problem List?: No Quality: Stroke Does the patient have a stroke diagnosis?: No Physical Exam Exam: Exam: General: AOx3, no acute distress Resp: CTA bilaterally CVS: S1, S2, RRR GI: +BS, NT, no distention Skin: Warm, dry Neuro: Cranial nerves II-XII grossly intact bilaterally. Motor grossly intact bilaterally Extremities: No edema Psych: Appropriate affect. Calm, cooperative. Vital Signs: Vital Signs: Last Vital Signs Temp 97.9 F 12/28/24 15:19 Pulse 85 12/28/24 15:19 Resp 18 12/28/24 15:19 BP 99/65 12/28/24 15:19 Pulse Ox 96 12/28/24 15:19 O2 Del Method Room Air 12/28/24 15:19 O2 Flow Rate 2 12/18/24 18:00 FiO2 30 12/18/24 10:50 BMI result Body Mass Index 22.8 Discharge Plan Discharge Anticipated Discharge Date/Time: 12/28/24 15:37 Patient Disposition: Home Health Service Discharge Diagnosis: Acute hypoxic respiratory failure and septic shock secondary to aspiration pneumonia Referrals: [facility] [Outside] - 1 Week Moni Kohler MD [Primary Care Provider, Internal Medicine] - 1 Week Discharge Medications: Continued magnesium oxide 420 mg Tablet 420 mg PO DAILY 30 Days Qty: 30 0RF calcium carbonate-vitamin D3 500 mg-3.125 mcg (125 unit) Tablet 1 tab PO BID 30 Days Qty: 60 0RF melatonin 5 mg Tablet 5 mg PO BEDTIME PRN (Reason: Sleep) 30 Days Qty: 30 0RF meloxicam 15 mg Tablet 7.5 mg PO DAILY cyanocobalamin (vitamin B-12) 1,000 mcg Tablet 1,000 mcg PO DAILY amitriptyline 10 mg Tablet 20 mg PO BEDTIME gabapentin 300 mg Capsule 900 mg PO BID@0800,1200 gabapentin 300 mg Capsule 1,200 mg PO BEDTIME divalproex 250 mg tablet extended release 24 hr 1,250 mg PO BEDTIME vitamin E (dl, acetate) 45 mg (100 unit) Capsule 45 mg PO DAILY cholecalciferol (vitamin D3) [Vitamin D3] 50 mcg (2,000 unit) Tablet 50 mcg PO DAILY sennosides-docusate sodium [Senna Plus] 8.6-50 mg tablet 2 tab PO BEDTIME PRN (Reason: Constipation) quetiapine [Seroquel] 100 mg Tablet 100 mg PO BEDTIME famotidine 20 mg tablet 20 mg PO DAILY@0630 alendronate 70 mg tablet 70 mg PO MO@0900 memantine 5 mg Tablet 5 mg PO BID acetaminophen 325 mg Tablet 650 mg PO Q6H PRN (Reason: Headache/Pain, Scale 1-10) 15 Days Qty: 120 1RF naloxone [Narcan] 4 mg/actuation spray,non-aerosol 4 mg intranasal Q2M PRN (Reason: opioid overdose) 1 Days Qty: 2 0RF Rx Instructions: spray 1 dose into ONE nostril; alternate nostrils w each dose until help arrives Discharge Orders: Discharge Order (Routine); Ordered 12/28/24 Ordered By: Nicolas Tovar Activity on Discharge: As tolerated Stand Alone Forms: Patient Portal Discharge page Print Language: Syriac Care Plan Goals: See below Health Concerns: Polysubstance use disorder Unintentional drug overdose Respiratory distress, hypoxia, Plan of Treatment: You were brought to the hospital after being found unresponsive by family members with an unknown downtime. You were admitted to the hospital for acute respiratory distress and hypoxia that required intubation and ventilatory support likely secondary from aspiration pneumonia after drug overdose. Your treated with IVF, electrolyte replenishment, and IV antibiotics. You have completed your course of antibiotics for aspiration pneumonia while in the hospital. You are strongly encouraged to abstain from alcohol or illicit drug use. For coccyx and buttock wounds, reposition every 2 hours and use pillows to offload weight. Routine cleaning allow skin to thoroughly dry. Visiting nurse will change dressing every 3 days and as necessary For possible latent TB, follow up outpatient in 1-[address] Gavin in pulmonology Assessment: See discharge summary Discharge Date/Time: 12/28/24 17:00
== END 2024-12-28 17:00 | disposition home health service (06) | DRG 917 ==
LOC: HO.ED 11:01 → HO.EDOVER 11:31 → HO.ICU 11:43 → HO.IMC 12-19 14:31
PROVIDERS: Internal Medicine; Nurse Practitioner Family; Admitting Provider Internal Medicine Pulmonary Disease; Emergency Provider Emergency Medicine; PCP Family Medicine; Visit Provider Student in an Organized Health Care Education/Training Program
DX: T50.901A Poisoning by unspecified drugs, medicaments and biological substances, accidental (unintentional), initial encounter (principal); A41.9 Sepsis, unspecified organism; J69.0 Pneumonitis due to inhalation of food and vomit; R65.21 Severe sepsis with septic shock; J96.01 Acute respiratory failure with hypoxia; N17.9 Acute kidney failure, unspecified; L89.812 Pressure ulcer of head, stage 2; L24.A9 Irritant contact dermatitis due friction or contact with other specified body fluids; J70.4 Drug-induced interstitial lung disorders, unspecified; T50.7X5A Adverse effect of analeptics and opioid receptor antagonists, initial encounter; K21.9 Gastro-esophageal reflux disease without esophagitis; F39 Unspecified mood [affective] disorder; E87.5 Hyperkalemia; F19.10 Other psychoactive substance abuse, uncomplicated; Z20.822 Contact with and (suspected) exposure to COVID-19; Z79.899 Other long term (current) drug therapy
CPT/HCPCS: 36415; 71045; 80048; 80053; 80076; 80307; 81001; 82040; 82803; 82947; 83605; 83690; 83735; 83880; 84100; 84484; 85007; 85014; 85018; 85025; 85027; 87040; 87637; 92526; 92610; 93005; 93306; 94002; 94003; 94640; 94799; 97162; 97530; 99285; J0330; J0613; J1308; J1644; J1938; J1956; J2250; J2543; J2704; J2919; J3010; J3475; P9047; S9485

== ENCOUNTER → 2024-12-17 09:25 | Outpatient (BNV) | payer MEDICARE, SELFPAY | PROVIDERS: Admitting Provider Internal Medicine Pulmonary Disease; Emergency Provider Emergency Medicine; Visit Provider Internal Medicine | DX: R00.0 Tachycardia, unspecified (principal) | CPT/HCPCS: 93010 ==

== ENCOUNTER → 2024-12-17 09:25 | Outpatient (BNV) | payer MEDICARE, SELFPAY | PROVIDERS: Emergency Provider Emergency Medicine; Visit Provider Radiology Vascular & Interventional Radiology | DX: R06.02 Shortness of breath (principal); Z43.1 Encounter for attention to gastrostomy | CPT/HCPCS: 71045 ==

== ENCOUNTER → 2024-12-17 10:17 | Outpatient (BNV) | payer MEDICARE, SELFPAY | PROVIDERS: Emergency Provider Emergency Medicine; Visit Provider Internal Medicine Pulmonary Disease | DX: T17.900A Unspecified foreign body in respiratory tract, part unspecified causing asphyxiation, initial encounter (principal); J96.01 Acute respiratory failure with hypoxia; F19.10 Other psychoactive substance abuse, uncomplicated | CPT/HCPCS: 99291 ==

== ENCOUNTER 2024-12-17 10:54 | Outpatient (BNV) | payer MEDICARE, SELFPAY | END 2024-12-19 07:00 | PROVIDERS: Admitting Provider Internal Medicine Pulmonary Disease; Emergency Provider Emergency Medicine; PCP Family Medicine; Visit Provider Internal Medicine Cardiovascular Disease | DX: I51.89 Other ill-defined heart diseases (principal); I35.8 Other nonrheumatic aortic valve disorders; R09.02 Hypoxemia | CPT/HCPCS: 93306 ==

== ENCOUNTER → 2024-12-17 10:54 | Outpatient (BNV) | payer MEDICARE, SELFPAY | PROVIDERS: Admitting Provider Internal Medicine Pulmonary Disease; Emergency Provider Emergency Medicine; PCP Family Medicine; Visit Provider Internal Medicine | DX: J69.0 Pneumonitis due to inhalation of food and vomit (principal) | CPT/HCPCS: 99231; 99232 ==

== ENCOUNTER 2025-01-31 12:01 | Inpatient (IN) | payer OTHER, SELFPAY ==
[2025-01-31] VITALS (8 sets, daily range): BP systolic 106–139; BP diastolic 57–76; PULSE 73–89; RESP 14–16; TEMP 36.3–36.8; O2SAT 91–95; BMI 22.2
--- NOTE | ~2025-01-31 | US_ITS ---
CLINICAL HISTORY: Gross hematuria US RENAL Comparison: None provided Findings: Right kidney length is 10.8 cm. Mild cortical thinning is within normal limits for age. No significant increased cortical echoes. No hydronephrosis, shadowing calculus or cortical mass lesion. Limited visualization of the left kidney secondary to poor patient mobility. Left kidney length is roughly 8.0 cm. No hydronephrosis is evident. IMPRESSION: 1. No right hydronephrosis or sonographic evidence for nephrolithiasis. 2. Limited visualization of the left kidney which appears grossly unremarkable. 3. Given presenting history, consider evaluation with CT urography or retrograde cystopyelography. This document has been electronically signed by: Lizz Harper DO on 02/07/2025 18:23:17
--- NOTE | ~2025-01-31 | CT_ITS ---
EXAMINATION: CT HEAD WITHOUT CONTRAST CLINICAL INFORMATION: Encephalopathy. COMPARISON: CT brain 01/31/2025 TECHNIQUE: Contiguous axial imaging was performed from the skull base to vertex without intravenous administration of contrast. This CT examination was performed using dose optimization techniques as appropriate, variously including the following: *Automated exposure control *Adjustment of mA and/or kV according to patient size (this includes techniques or standardized protocols for targeted exams where dose is matched to indication/reason for exam; i.e. extremities or head) *Use of iterative reconstruction technique DLP 866 mGy/cm. FINDINGS: There is no acute intra-axial, extra-axial bleed, masses or midline shift. There is no acute infarction in evolution. 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 There is mild periventricular hypodensity in both cerebral hemispheres without mass effect. The lateral ventricles are symmetrical and mildly enlarged and so are the cortical sulci. Bone windows reveal no calvarial abnormality. There is no scalp soft tissue abnormality. There is a small polyp or retention cyst in right ethmoid sinus. CT/CT head/brain wo IV con IMPRESSION: No acute intracranial process seen. Electronically signed by: Naveed Dhillon MD 02/07/2025 07:19 AM EDT
--- NOTE | ~2025-01-31 | XR_ITS ---
EXAMINATION: XR CHEST CLINICAL INFORMATION: lethargy COMPARISON: January 31, 2025. TECHNIQUE: Frontal view of the chest was obtained. FINDINGS: Pulmonary reticular pattern with prominence of the interstitial lung markings and indistinct margins in the perihilar region. Patchy opacity in the right lower hemithorax. No gross pneumothorax or pleural effusion. Cardiomediastinal silhouette appears prominent, unchanged. Calcified plaque thoracic aorta. Multilevel spondylosis. Degenerative changes in the acromioclavicular joints. S-shaped curvature of the thoracolumbar spine. XR/XR chest 1V IMPRESSION: Chronic interstitial lung disease with mild interstitial lung edema versus acute small airway inflammatory process. Overall worsening since prior exam. Electronically signed by: Kalin Fernandez MD 02/06/2025 02:59 PM EDT
--- NOTE | ~2025-01-31 | CT_ITS ---
EXAMINATION: CT HEAD WITHOUT CONTRAST CLINICAL INFORMATION: Nonfocal encephalopathy. COMPARISON: 02/26/2024. TECHNIQUE: Contiguous axial imaging was performed from the skull base to vertex without intravenous administration of contrast. This CT examination was performed using dose optimization techniques as appropriate, variously including the following: *Automated exposure control *Adjustment of mA and/or kV according to patient size (this includes techniques or standardized protocols for targeted exams where dose is matched to indication/reason for exam; i.e. extremities or head) *Use of iterative reconstruction technique FINDINGS: The exam is mildly motion degraded, which limits the sensitivity. There is no evidence of intracranial hemorrhage or extra-axial fluid collection. There is no mass effect, or edema. No CT evidence of acute territorial infarct. Ventricles, sulci, and cisterns are diffusely somewhat prominent, reflective of age advanced cerebral and cerebellar volume loss. No hydrocephalus. No midline shift. Negative hyperdense MCA sign. Negative insular ribbon sign. Patchy periventricular and deep white matter hypoattenuation is consistent with mild to moderate small vessel ischemic changes. Old lacunar type infarct left caudate body. Normal pituitary. Mild atheromatous calcification of the bilateral carotid siphons and V4 segments vertebral arteries bilaterally. Globes and orbital contents image normally. No extracranial soft tissue abnormalities. The paranasal sinuses, mastoid air cells, and tympanic cavities are normally aerated. No suspicious bony abnormalities. There are no acute fractures evident. CT/CT head/brain wo IV con IMPRESSION: Mildly motion degraded exam. No acute intracranial pathology. Electronically signed by: Ari Soliman MD 01/31/2025 01:53 PM EDT
--- NOTE | ~2025-01-31 | XR_ITS ---
EXAMINATION: XR CHEST CLINICAL INFORMATION: hypoxia, limited history COMPARISON: December 17, 2024 TECHNIQUE: Frontal view of the chest was obtained. FINDINGS: ET and NG tubes have been removed since the prior examination. Heart size is at the upper limits of normal. Atherosclerotic calcification is seen in the aortic knob. There are coarse lung markings with possible Elizabeth B lines in the right greater than left lateral lower lungs. There is cephalization of pulmonary vascularity. Overall, lungs have mostly cleared since the prior. XR/XR chest 1V IMPRESSION: Pulmonary vascular congestion and borderline cardiac size Electronically signed by: Romain Tran MD 01/31/2025 01:27 PM EDT
--- NOTE | 2025-01-31 12:25 | ED_ITS ---
HPI - Altered Mental Status General Chief Complaint: Altered Mental Status Stated Complaint: WEAKNESS,AMS PER EMS Time Seen by Provider: 01/31/25 12:16 History of Present Illness ED Provider: Alon Art MD HPI narrative: 74-year-old male who was found to be slightly off from his usual mental state per the [employer] delivery consultant today and was EMS was called. The patient is found to be sleepy. He does apparently live alone. There was a documented history of bipolar, opioid use disorder, cognitive impairment. Patient limited due to clinical condition providing minimal history. Related Data Home Medications ?Medication ?Instructions ?Recorded ?Confirmed famotidine 20 mg tablet 20 mg PO DAILY 11/18/2208/23 amitriptyline 10 mg tablet 20 mg PO BEDTIME 02/26/24 0 02/01/25 cholecalciferol (vitamin D3) 50 50 mcg PO DAILY 02/01/25 mcg (2,000 unit) tablet (Vitamin D3) cyanocobalamin (vitamin B-12) 1,000 mcg PO DAILY 02/2502/01/25 1,000 mcg tablet divalproex 250 mg tablet,extended 1,250 mg PO BEDTIME 02/26/24 02/01/25 release 24 hr gabapentin 300 mg capsule 1,200 mg PO BEDTIME 02/26/24 02/01/25 gabapentin 300 mg capsule 900 mg PO BID@0800,1200 01/3102/01/25 meloxicam 15 mg tablet 7.5 mg PO DAILY 02/26/2408/23 sennosides 8.6 mg-docusate sodium 2 tab PO BEDTIME PRN Constipation 02/26/24 02/01/25 50 mg tablet (Senna Plus) vitamin E (dl, acetate) 45 mg (100 45 mg PO DAILY 01/3102/01/25 unit) capsule quetiapine 100 mg tablet (Seroquel) 100 mg PO BEDTIME 07/06/24 02/01/25 memantine 5 mg tablet 5 mg PO BID 12/01/24 5 methadone 10 mg tablet 40 mg PO DAILY 02/01/2509/23 Previous Rx's ?Medication ?Instructions ?Recorded calcium 500 mg (as 1 tab PO BID 30 days #60 tab s 01/22/22 carbonate)-vitamin D3 3.125 mcg (125 unit) tablet magnesium oxide 420 mg tablet 420 mg PO DAILY 30 days #30 tabs 01/22/22 acetaminophen 325 mg tablet 650 mg (2 x 325 mg) PO Q6H PRN 12/06/24 Headache/Pain, Scale 1-10 15 days #120 tabs naloxone 4 mg/actuation nasal 4 mg intranasal Q2M PRN opioid 12/06/24 spray (Narcan) overdose 1 day #2 ea Allergies Allergy/AdvReac Type Severity Reaction Status Date / Time No Known Allergies (No Known Allergy Verified 01/31/25 12:20 Allergies*) [facility] Past Medical History Medical History Drug overdose Opioid use disorder, severe, on maintenance therapy Social History Social History Household Members: Unknown / Unable to assess Household Members Other:: Son Housing: Unknown / Unable to assess Do you presently have visiting nurse or other home services: No Unable to assess alcohol history related to: Unable to respond Alcohol intake: current Alcohol intake frequency: does not drink Comment: 1:1 knife sharpener at bedside Patient Tobacco Use Status: Tobacco use Unknown Tobacco use type: Cigarette Cigarette Packs Per Day: 0.5 Cigarettes Per Day: 10.0 Years Smoked: 50 e-Cigarette/Vaping Use: Never Used Second Hand Smoke Exposure: Yes Use of substances other than those prescribed or required for medical reasons: Unable to respond Substance Use Type: Crack/Cocaine, Heroin and Marijuana Advance Directives: No Advance Directives Information Provided: No Advance Directives Date on File: 12/17/24 Nutrition Risks: No Nutritional Risk service: Yes Sexual orientation: Straight/Heterosexual Physical Exam ED Exam Exam: EXAM: Gen: Very sleepy, arousable with loud verbal stim. Pupils 1 mm constricted and symmetric. No obvious external signs of trauma. Respiratory rate 12. Looks like he has dry oral mucosa and poor hygiene and dentition with upper partial dry and poorly fitted. Head: Atraumatic Eyes: Anicteric, Normal conjunctiva. Nearly pinpoint pupils ENT: Moist mucosa, no pallor. ? Neck: Supple. Skin: ?No observable rash or bruising on exposed or examined skin Respiratory: Breathing comfortably, No distress.Clear to auscultation bilaterally, symmetric chest expansion, No wheeze, rales, ronchi. Cardiovascular: Regular rate and rhythm. No murmurs or rub. Well perfused periphery, warm extremities. No edema. ? Abdominal: No focal tenderness. Soft, no objective distension. No palpable masses or obvious organomegaly. ?No guarding, no rebound tenderness or other peritoneal findings. : No flank tenderness. Neuro: Drowsy no obvious focal deficits normal tone. Symmetric face grossly Psych: Drowsy MSK: No grossly visible deformity. Vital signs: See flowsheet Vital Signs: Vital Signs - 24 hr 02/06/25 05:57 02/06/25 11:32 02/06/25 14:00 Temperature 97.1 F 97.1 F 97.4 F Pulse Rate 59 61 65 Respiratory Rate 16 16 16 Blood Pressure 112/68 107/63 106/68 Pulse Oximetry 93 94 93 Oxygen Delivery Method Room Air Room Air Room Air 02/06/25 15:58 02/06/25 16:59 02/06/25 17:06 Temperature 96.8 F 96.6 F L Pulse Rate 61 60 58 Respiratory Rate 14 12 8 L Blood Pressure 111/63 124/66 135/70 Pulse Oximetry 94 97 95 Oxygen Delivery Method Room Air Room Air Room Air BMI result Body Mass Index 22.2 Course Reevaluation(s) Reevaluation #1: Received a call from [employer], the patient is retaining urine, he has a almost 500 mL in the bladder, we will place a Richardson catheter. Urinalysis was performed yesterday he does not have a UTI. Time: 00:57 Reevaluation #2: Time: 14:47 Date: 02/01/25 Provider: OSMANY Patterson Patient in physician observation for case management needs. VS stable. Awaiting case management disposition. We will continue to monitor. 02/02/2025 0834 Domi Mcconnell PA-C ---> Observation continues. Case management continues to follow. Reevaluation #3: OSMANY Potter 02/03 Physician observation continued. Uneventful night. Vital signs stable. No complaints from nursing overnight. Med reconciliation reviewed and done. Pending disposition. Will continue to monitor. There appears to be some cellulitis to the left AC region where patient had an IV. Therefore, will order antibiotics. OSMANY Potter 02/04 Physician observation continued. Uneventful night. Vital signs stable. No complaints from nursing overnight. Med reconciliation reviewed and done. Pending disposition. Will continue to monitor. Time: 09:41 Date: 02/05/25 Provider: OSMANY Patterson Patient in physician observation for case management needs. No acute events reported overnight.? No current issues or complaints. VS stable. Awaiting CM disposition Time: 13:55 Date: 02/06/25 Provider: OSMANY Patterson Patient in physician observation for case management needs. Nursing approached me stating that they are concerned as he does appear to be lethargic. I reviewed the case, and it appears that this is why he initially presented however upon my evaluation, patient with mouth open, patient appears to be very dry. His vital signs have been within normal limits. Son had informed the nurse that they believe that the methadone that he is currently on may be too high. Upon review of medical chart eating, patient is also on gabapentin 1200 milligrams at bedtime as well as Seroquel. Patient also is on gabapentin 800 milligrams twice a day in addition to this. I held these medications due to lethargy. POC at bedside revealing a glucose of 80. We will give him D50 amp, 1L IV fluids. Will obtain COVID, flu, RSV, chest x-ray, ammonia level, U tox, EKG, CBC, Chem. We will continue to closely monitor. 5:46 PM 02/06/2025 (Kathy Puentes PA-C): Patient notably to have a UTI, treated with 1 gram of Rocephin. Patient did have a period of time where he was a little bit more alert however patient appears to still be very lethargic. He is arousable to verbal stimuli. Resting with mouth wide open. He was placed on a Carito Hugger as his temperature dropped to 96.6. Given this time as patient has a UTI, very lethargic, he will likely decompensate if he is continued in a case management disposition. I spoke to the hospitalist, Nicolas Tovar PA-C, transfer of care initiated. Medications Administered Generic Name Dose Route Start Last Admin Trade Name Jennifer PRN Reason Stop Dose Admin Amitriptyline HCl 20 mg 02/01/25 22:00 02/05/25 21:45 Amitriptyline Hcl 10 Mg Tablet PO 20 mg On Hold: 02/06/25 14:09 BEDTIME ELISABET Administration Calcium Carbonate/Cholecalciferol 250 mg 02/02/25 09:00 02/06/25 22:21 Calcium + Vitamin D 250 Mg Tablet PO Not Given BID ELISABET Cephalexin HCl 500 mg 02/03/25 17:00 02/06/25 22:21 Cephalexin 500 Mg Capsule PO Not Given On Hold: 02/06/25 21:08 QID ELISABET Cyanocobalamin 1,000 mcg 02/02/25 09:00 02/06/25 08:26 Cyanocobalamin (Vitamin B-12) 1,000 Mcg Tablet PO 1,000 mcg DAILY ELISABET Administration Divalproex Sodium 1,250 mg 02/01/25 22:00 02/05/25 21:45 Divalproex Sodium Er 250 Mg Tab.Er.24h PO 1,250 mg On Hold: 02/06/25 20:57 BEDTIME ELISABET Administration Enoxaparin Sodium 40 mg 02/06/25 19:45 02/06/25 22:14 Enoxaparin Sodium 40 Mg/0.4 Ml Syringe SUBCUT 40 mg Q24H ELISABET Administration Famotidine 20 mg 02/02/25 09:00 02/06/25 08:26 Famotidine 20 Mg Tablet PO 20 mg DAILY ELISABET Administration Gabapentin 900 mg 02/02/25 08:00 02/06/25 13:25 Gabapentin 300 Mg Capsule PO Not Given On Hold: 02/06/25 14:09 BID@0800,1200 ELISABET Gabapentin 1,200 mg 02/01/25 22:00 02/05/25 21:44 Gabapentin 400 Mg Capsule PO 1,200 mg On Hold: 02/06/25 14:09 BEDTIME ELISABET Administration Valproic Acid 250 mg/ Sodium 102.5 mls @ 100 mls/hr 02/06/25 21:00 02/06/25 23:18 Chloride IV Infused Q6H ELISABET Infusion Acetaminophen 1,000 mg in 100 mls @ 400 mls/hr 02/06/25 21:00 02/06/25 23:17 Ofirmev IV Infused Q6H ELISABET Infusion Magnesium Oxide 400 mg 02/02/25 09:00 02/06/25 08:26 Magnesium Oxide 400 Mg Tablet PO 400 mg DAILY ELISABET Administration Memantine 5 mg 02/01/25 22:00 02/06/25 22:21 Memantine Hcl 5 Mg Tablet PO Not Given BID ELISABET Methadone HCl 40 mg 02/02/25 17:00 02/06/25 08:34 Methadone Hcl 20 Mg/2 Ml Oral.Conc PO 40 mg DAILY ELISABET Administration Naproxen 500 mg 02/02/25 09:00 02/06/25 08:24 Naproxen 500 Mg Tablet PO 500 mg On Hold: 02/06/25 20:57 BID ELISABET Administration Quetiapine Fumarate 100 mg 02/01/25 22:00 02/05/25 21:45 Quetiapine Fumarate 100 Mg Tablet PO 100 mg On Hold: 02/06/25 14:09 BEDTIME ELISABET Administration Vitamin D 50 mcg 02/02/25 09:00 02/06/25 08:25 Cholecalciferol (Vitamin D3) 25 Mcg Tablet PO 50 mcg DAILY ELISABET Administration Discontinued Medications Generic Name Dose Route Start Last Admin Trade Name Freq PRN Reason Stop Dose Admin Ceftriaxone Sodium 1 gm 02/06/25 16:07 02/06/25 16:54 Ceftriaxone Sodium 1 Gm Vial IVPUSH 02/06/25 16:08 1 gm ONCE ONE Administration Dextrose 25 gm 02/06/25 14:28 02/06/25 14:45 Dextrose 50 % 25 Gm/50 Ml Syringe IVPUSH 02/06/25 14:29 25 gm ONCE ONE Administration Sodium Chloride 1,000 mls @ 999 mls/hr 01/31/25 12:45 01/31/25 14:22 Ns IV 01/31/25 13:45 Infused .Q1H1M ELISABET Infusion Sodium Chloride 1,000 mls @ 999 mls/hr 02/06/25 14:30 02/06/25 15:58 Ns IV 02/06/25 15:30 Infused .Q1H1M ONE Infusion Medical Decision Making Medical Decision Making MDM Narrative: Medical Decision Makin-year-old male methadone maintenance with lethargy dry appearance clinically. Apparently was discharged December 28 to home with VNA but does not appear to me that he is safe to be discharge there at this point. No evidence of trauma externally in his head CT is without injury. Lab work not suggestive of acute toxic or metabolic encephalopathy. No focal deficits. He remains after several hours of ED monitoring sleepy lethargic and unsafe for disposition home where presumably he has many hours by himself. 15:30 initiation of physician observation for PT case management patient may need escalating home care or SNF placement Preliminary Favored Differential Diagnosis: Acute or chronic drug intoxication, methadone maintenance, toxic or metabolic encephalopathy, traumatic brain injury, among additional considered etiologies Testing Interpreted Independently: ?See below for details Radiology or Lab testing Results Reviewed: ?See below for details Consults: ?See below for details Independent Historians/External Chart Reviews: ?See below for details Social Determinants of Health Impacting MDM/Planning: ?See below for details Consult Healthcare Provider Case management, PT Lab Data 02/06/25 14:39 02/06/25 14:39 Labs: Lab Results 01/31/25 01/31/25 01/31/25 Range/Units 12:57 12:58 14:37 WBC 7.7 (4.8-10.8) X10*3/uL RBC 3.73 L (4.60-5.80) X10*6/uL Hgb 10.3 L (14.0-18.0) g/dl Hct 32.3 L (42.0-52.0) % MCV 86.6 (80.0-98.0) fL MCH 27.6 (27.0-33.0) pg MCHC 31.9 (31.0-36.0) g/dl RDW 14.7 (11.0-16.0) % Plt Count 194 (160-400) X10*3/uL MPV 9.1 L (9.4-12.4) fL Immature Gran % (Auto) 0.1 (0.0-0.4) % Neut % (Auto) 62.2 (45-73) % Lymph % (Auto) 27.8 (20-40) % Clarke % (Auto) 8.4 (2-11) % Eos % (Auto) 1.2 (0-4) % Baso % (Auto) 0.3 (0-2) % Lymph # (Auto) 2.2 (1.2-4.9) X10*3/uL Clarke # (Auto) 0.7 (0.1-1.2) X10*3/uL Eos # (Auto) 0.1 (0.0-0.4) X10*3/uL Baso # (Auto) 0.0 (0.0-0.2) X10*3/uL Abs Immat Gran (auto) 0.01 (0.00-0.03) X10*3/uL Absolute Neuts (auto) 4.8 (2.0-8.3) x10*3/uL Absolute Nucleated RBC 0.000 (0.0-0.012) X10*3/uL Nucleated RBC % (auto) 0.0 (0.0-0.2) /100WBC Sodium 142 (135-145) mmol/L Potassium 3.8 (3.3-5.1) mmol/L Chloride 106 (96-108) mmol/L Carbon Dioxide 27 (22-29) mmol/L Anion Gap 13 (12-20) BUN 12 (9-16) mg/dL Creatinine 0.90 (0.5-1.4) mg/dL Estim Creat Clear Calc 67.4 Estimated GFR > 60 POC Glucose (60-115) mg/dL Random Glucose 88 (60-115) mg/dL Lactic Acid (0.5-2.0) mmol/L Calcium 9.3 (8.4-10.2) mg/dL Magnesium 1.8 (1.6-2.6) mg/dL Total Bilirubin 0.4 (0.0-1.0) mg/dL Direct Bilirubin (0.0-0.5) mg/dL AST 57 H (5-37) U/L ALT 14 (0-40) U/L Alkaline Phosphatase 70 (39-117) U/L Ammonia 22 (13-55) umol/L Troponin I High Sens (<3.5-35.0) ng/L Total Protein 7.3 (6.5-8.0) g/dL Albumin 3.9 (3.5-5.0) g/dL TSH 0.77 (0.32-4.0) uIU/mL Urine Color Yellow Urine Appearance Clear Urine pH 6.0 (5.0-9.0) Ur Specific [place] 1.020 (1.005-1.025) Urine Protein Trace (Neg-Trace) mg/dL Urine Glucose (UA) Negative (Negative) mg/dL Urine Ketones 15 (Negative) mg/dL Urine Blood Negative (Negative) Urine Nitrite Negative (Negative) Ur Leukocyte Esterase Negative (Negative) Urine RBC 0-2 (0-2) /HPF Urine WBC 0-5 (0-5) /HPF Ur Squamous Epith Cells 0-2 (0-2) /HPF Urine Bacteria None Seen (None Seen) Hyaline Casts 3-5 (0-2) /LPF Urine Opiates Screen Not Detected (Not Detect) Ur Buprenorphine Scrn Not Detected (Not Detect) ng/mL Ur Oxycodone Screen Not Detected (Not Detect) ng/mL Urine Methadone Screen Positive H (Not Detect) ng/mL Urine Fentanyl Screen Not Detected (Not Detect) Ur Barbiturates Screen Not Detected (Not Detect) Ur Phencyclidine Scrn Not Detected (Not Detect) Ur Amphetamines Screen Not Detected (Not Detect) U Benzodiazepines Scrn Not Detected (Not Detect) Urine Cocaine Screen Not Detected (Not Detect) U Marijuana (THC) Screen Not Detected (Not Detect) Ethyl Alcohol < 10 mg/dL COVID-19 (RONNIE) (Negative) COVID-19 Clin Com Influenza Type A (CISCO) (Negative) Influenza Type A (PCR) (Negative) Influenza Type B (CISCO) (Negative) Influenza Type B (PCR) (Negative) Influenza A & B Note RSV RNA Qual (PCR) (Negative) SARS-CoV-2 RNA (RT-PCR) (Negative) 01/31/25 02/06/25 02/06/25 Range/Units 17:03 14:26 14:39 WBC 7.8 (4.8-10.8) X10*3/uL RBC 4.90 D (4.60-5.80) X10*6/uL Hgb 13.5 L D (14.0-18.0) g/dl Hct 41.8 L D (42.0-52.0) % MCV 85.3 (80.0-98.0) fL MCH 27.6 (27.0-33.0) pg MCHC 32.3 (31.0-36.0) g/dl RDW 14.8 (11.0-16.0) % Plt Count 263 D (160-400) X10*3/uL MPV 9.8 (9.4-12.4) fL Immature Gran % (Auto) 0.9 H (0.0-0.4) % Neut % (Auto) 45.7 (45-73) % Lymph % (Auto) 40.3 H (20-40) % Clarke % (Auto) 8.7 (2-11) % Eos % (Auto) 4.0 (0-4) % Baso % (Auto) 0.4 (0-2) % Lymph # (Auto) 3.2 (1.2-4.9) X10*3/uL Clarke # (Auto) 0.7 (0.1-1.2) X10*3/uL Eos # (Auto) 0.3 (0.0-0.4) X10*3/uL Baso # (Auto) 0.0 (0.0-0.2) X10*3/uL Abs Immat Gran (auto) 0.07 H (0.00-0.03) X10*3/uL Absolute Neuts (auto) 3.6 (2.0-8.3) x10*3/uL Absolute Nucleated RBC 0.000 (0.0-0.012) X10*3/uL Nucleated RBC % (auto) 0.0 (0.0-0.2) /100WBC Sodium 138 (135-145) mmol/L Potassium 4.7 D (3.3-5.1) mmol/L Chloride 101 (96-108) mmol/L Carbon Dioxide 27 (22-29) mmol/L Anion Gap 15 (12-20) BUN 10 (9-16) mg/dL Creatinine 0.94 (0.5-1.4) mg/dL Estim Creat Clear Calc 64.5 Estimated GFR > 60 POC Glucose 80 (60-115) mg/dL Random Glucose 77 (60-115) mg/dL Lactic Acid (0.5-2.0) mmol/L Calcium 10.4 H D (8.4-10.2) mg/dL Magnesium 2.2 (1.6-2.6) mg/dL Total Bilirubin 0.2 (0.0-1.0) mg/dL Direct Bilirubin < 0.2 (0.0-0.5) mg/dL AST 23 (5-37) U/L ALT 7 (0-40) U/L Alkaline Phosphatase 71 (39-117) U/L Ammonia 36 (13-55) umol/L Troponin I High Sens < 2.7 D (<3.5-35.0) ng/L Total Protein 8.7 H (6.5-8.0) g/dL Albumin 4.0 (3.5-5.0) g/dL TSH (0.32-4.0) uIU/mL Urine Color Urine Appearance Urine pH (5.0-9.0) Ur Specific [place] (1.005-1.025) Urine Protein (Neg-Trace) mg/dL Urine Glucose (UA) (Negative) mg/dL Urine Ketones (Negative) mg/dL Urine Blood (Negative) Urine Nitrite (Negative) Ur Leukocyte Esterase (Negative) Urine RBC (0-2) /HPF Urine WBC (0-5) /HPF Ur Squamous Epith Cells (0-2) /HPF Urine Bacteria (None Seen) Hyaline Casts (0-2) /LPF Urine Opiates Screen (Not Detect) Ur Buprenorphine Scrn (Not Detect) ng/mL Ur Oxycodone Screen (Not Detect) ng/mL Urine Methadone Screen (Not Detect) ng/mL Urine Fentanyl Screen (Not Detect) Ur Barbiturates Screen (Not Detect) Ur Phencyclidine Scrn (Not Detect) Ur Amphetamines Screen (Not Detect) U Benzodiazepines Scrn (Not Detect) Urine Cocaine Screen (Not Detect) U Marijuana (THC) Screen (Not Detect) Ethyl Alcohol < 10 mg/dL COVID-19 ([facility]IE) Negative (Negative) COVID-19 Clin Com See Note Influenza Type A ([facility]CO) Negative (Negative) Influenza Type A (PCR) NEGATIVE (Negative) Influenza Type B ([facility]CO) Negative (Negative) Influenza Type B (PCR) NEGATIVE (Negative) Influenza A & B Note See Note RSV RNA Qual (PCR) NEGATIVE (Negative) SARS-CoV-2 RNA (RT-PCR) NEGATIVE (Negative) 02/06/25 02/06/25 02/06/25 Range/Units 14:56 15:02 15:28 WBC (4.8-10.8) X10*3/uL RBC (4.60-5.80) X10*6/uL Hgb (14.0-18.0) g/dl Hct (42.0-52.0) % MCV (80.0-98.0) fL MCH (27.0-33.0) pg MCHC (31.0-36.0) g/dl RDW (11.0-16.0) % Plt Count (160-400) X10*3/uL MPV (9.4-12.4) fL Immature Gran % (Auto) (0.0-0.4) % Neut % (Auto) (45-73) % Lymph % (Auto) (20-40) % Clarke % (Auto) (2-11) % Eos % (Auto) (0-4) % Baso % (Auto) (0-2) % Lymph # (Auto) (1.2-4.9) X10*3/uL Clarke # (Auto) (0.1-1.2) X10*3/uL Eos # (Auto) (0.0-0.4) X10*3/uL Baso # (Auto) (0.0-0.2) X10*3/uL Abs Immat Gran (auto) (0.00-0.03) X10*3/uL Absolute Neuts (auto) (2.0-8.3) x10*3/uL Absolute Nucleated RBC (0.0-0.012) X10*3/uL Nucleated RBC % (auto) (0.0-0.2) /100WBC Sodium (135-145) mmol/L Potassium (3.3-5.1) mmol/L Chloride (96-108) mmol/L Carbon Dioxide (22-29) mmol/L Anion Gap (12-20) BUN (9-16) mg/dL Creatinine (0.5-1.4) mg/dL Estim Creat Clear Calc Estimated GFR POC Glucose 116 H 127 H (60-115) mg/dL Random Glucose (60-115) mg/dL Lactic Acid (0.5-2.0) mmol/L Calcium (8.4-10.2) mg/dL Magnesium (1.6-2.6) mg/dL Total Bilirubin (0.0-1.0) mg/dL Direct Bilirubin (0.0-0.5) mg/dL AST (5-37) U/L ALT (0-40) U/L Alkaline Phosphatase (39-117) U/L Ammonia (13-55) umol/L Troponin I High Sens (<3.5-35.0) ng/L Total Protein (6.5-8.0) g/dL Albumin (3.5-5.0) g/dL TSH (0.32-4.0) uIU/mL Urine Color Yellow Urine Appearance Cloudy Urine pH 6.5 (5.0-9.0) Ur Specific [place] >= 1.030 H (1.005-1.025) Urine Protein 30 (1+) H (Neg-Trace) mg/dL Urine Glucose (UA) 250 H (Negative) mg/dL Urine Ketones Trace (Negative) mg/dL Urine Blood Moderate (2+) H (Negative) Urine Nitrite Positive H (Negative) Ur Leukocyte Esterase Moderate (2+) H (Negative) Urine RBC >20 H (0-2) /HPF Urine WBC 21-50 H (0-5) /HPF Ur Squamous Epith Cells 3-5 (0-2) /HPF Urine Bacteria None Seen (None Seen) Hyaline Casts 11-20 (0-2) /LPF Urine Opiates Screen Not Detected (Not Detect) Ur Buprenorphine Scrn Not Detected (Not Detect) ng/mL Ur Oxycodone Screen Not Detected (Not Detect) ng/mL Urine Methadone Screen Positive H (Not Detect) ng/mL Urine Fentanyl Screen Not Detected (Not Detect) Ur Barbiturates Screen Not Detected (Not Detect) Ur Phencyclidine Scrn Not Detected (Not Detect) Ur Amphetamines Screen Not Detected (Not Detect) U Benzodiazepines Scrn Not Detected (Not Detect) Urine Cocaine Screen Not Detected (Not Detect) U Marijuana (THC) Screen Not Detected (Not Detect) Ethyl Alcohol mg/dL COVID-19 ([facility]) (Negative) COVID-19 Clin Com Influenza Type A (CISCO) (Negative) Influenza Type A (PCR) (Negative) Influenza Type B ([facility]CO) (Negative) Influenza Type B (PCR) (Negative) Influenza A & B Note RSV RNA Qual (PCR) (Negative) SARS-CoV-2 RNA (RT-PCR) (Negative) 02/06/25 02/06/25 Range/Units 15:59 16:49 WBC (4.8-10.8) X10*3/uL RBC (4.60-5.80) X10*6/uL Hgb (14.0-18.0) g/dl Hct (42.0-52.0) % MCV (80.0-98.0) fL MCH (27.0-33.0) pg MCHC (31.0-36.0) g/dl RDW (11.0-16.0) % Plt Count (160-400) X10*3/uL MPV (9.4-12.4) fL Immature Gran % (Auto) (0.0-0.4) % Neut % (Auto) (45-73) % Lymph % (Auto) (20-40) % Clarke % (Auto) (2-11) % Eos % (Auto) (0-4) % Baso % (Auto) (0-2) % Lymph # (Auto) (1.2-4.9) X10*3/uL Clarke # (Auto) (0.1-1.2) X10*3/uL Eos # (Auto) (0.0-0.4) X10*3/uL Baso # (Auto) (0.0-0.2) X10*3/uL Abs Immat Gran (auto) (0.00-0.03) X10*3/uL Absolute Neuts (auto) (2.0-8.3) x10*3/uL Absolute Nucleated RBC (0.0-0.012) X10*3/uL Nucleated RBC % (auto) (0.0-0.2) /100WBC Sodium (135-145) mmol/L Potassium (3.3-5.1) mmol/L Chloride (96-108) mmol/L Carbon Dioxide (22-29) mmol/L Anion Gap (12-20) BUN (9-16) mg/dL Creatinine (0.5-1.4) mg/dL Estim Creat Clear Calc Estimated GFR POC Glucose 119 H (60-115) mg/dL Random Glucose (60-115) mg/dL Lactic Acid 1.7 (0.5-2.0) mmol/L Calcium (8.4-10.2) mg/dL Magnesium (1.6-2.6) mg/dL Total Bilirubin (0.0-1.0) mg/dL Direct Bilirubin (0.0-0.5) mg/dL AST (5-37) U/L ALT (0-40) U/L Alkaline Phosphatase (39-117) U/L Ammonia (13-55) umol/L Troponin I High Sens (<3.5-35.0) ng/L Total Protein (6.5-8.0) g/dL Albumin (3.5-5.0) g/dL TSH (0.32-4.0) uIU/mL Urine Color Urine Appearance Urine pH (5.0-9.0) Ur Specific [place] (1.005-1.025) Urine Protein (Neg-Trace) mg/dL Urine Glucose (UA) (Negative) mg/dL Urine Ketones (Negative) mg/dL Urine Blood (Negative) Urine Nitrite (Negative) Ur Leukocyte Esterase (Negative) Urine RBC (0-2) /HPF Urine WBC (0-5) /HPF Ur Squamous Epith Cells (0-2) /HPF Urine Bacteria (None Seen) Hyaline Casts (0-2) /LPF Urine Opiates Screen (Not Detect) Ur Buprenorphine Scrn (Not Detect) ng/mL Ur Oxycodone Screen (Not Detect) ng/mL Urine Methadone Screen (Not Detect) ng/mL Urine Fentanyl Screen (Not Detect) Ur Barbiturates Screen (Not Detect) Ur Phencyclidine Scrn (Not Detect) Ur Amphetamines Screen (Not Detect) U Benzodiazepines Scrn (Not Detect) Urine Cocaine Screen (Not Detect) U Marijuana (THC) Screen (Not Detect) Ethyl Alcohol mg/dL COVID-19 ([facility]) (Negative) COVID-19 Clin Com Influenza Type A ([facility]CO) (Negative) Influenza Type A (PCR) (Negative) Influenza Type B (CISCO) (Negative) Influenza Type B (PCR) (Negative) Influenza A & B Note RSV RNA Qual (PCR) (Negative) SARS-CoV-2 RNA (RT-PCR) (Negative) Chronic Conditions Patient?s care impacted by: Other (Substance use disorder, bipolar) Social Determinants Home support questioned Critical Care Time Critical Care Time Critical Care Time: Yes Total Critical Care Time: 53 Attestation: I have personally provided critical care time exclusive of time spent on separately billable procedures. Time includes review of lab data, radiology results, discussion with consultants, and monitoring for potential decompensation. Intervention performed as documented. Discharge Plan Discharge Clinical Impression: Opioid use disorder, Bipolar disorder, Polysubstance abuse, Acute UTI, Acute metabolic encephalopathy, Adult failure to thrive Patient Disposition: Admitted As Inpatient Interventions: Admission Worksheet (ED) Last Done: 02/06/25 19:06
--- NOTE | 2025-01-31 12:40 | ECG_ITS ---
Test Reason : ALTERED MENTAL Blood Pressure : */* mmHG Vent. Rate : 77 BPM Atrial Rate : 77 BPM P-R Int : 150 ms QRS Dur : 74 ms QT Int : 430 ms P-R-T Axes : * 26 4 degrees QTcB Int : 486 ms Sinus rhythm with Premature atrial complexes Otherwise normal ECG When compared with ECG of 17-Dec-2024 09:44, Premature atrial complexes are now Present Nonspecific T wave abnormality now evident in Inferior leads Referred By: Alon Art Electronically Signed By: Akil Loomis
[2025-01-31 13:07] LABS: Appearance Urine Clear; Glucose Urine UA Negative (Negative); PH 6.0 (5.0-9.0); Specific Gravity - Urine 1.020 (1.005-1.025)
[2025-01-31 13:14] LABS: Cannabinoid Screen Urine Not Detected (Not Detect)
[2025-01-31 14:40] LABS: MANUAL DIFF FLAG NO
[2025-01-31 14:45] LABS: Hematocrit 32.3 % (42.0-52.0); Hemoglobin 10.3 g/dl (14.0-18.0); Imm Gran Abs Auto 0.01 X10*3/uL (0.00-0.03); Imm Gran Pct Auto 0.1 % (0.0-0.4); Lymphocytes Absolute Auto 2.2 X10*3/uL (1.2-4.9); Mean Corpuscular HGB Conc 31.9 g/dl (31.0-36.0); Mean Corpuscular Hemoglobin 27.6 pg (27.0-33.0); Mean Corpuscular Volume 86.6 fL (80.0-98.0); NRBC Abs Auto 0.000 X10*3/uL (0.0-0.012); NRBC Pct Auto 0.0 /100WBC (0.0-0.2); Platelet Count 194 X10*3/uL (160-400); Red Blood Count 3.73 X10*6/uL (4.60-5.80); White Blood Count 7.7 X10*3/uL (4.8-10.8)
[2025-01-31 14:56] LABS: Ammonia 22 umol/L (13-55)
[2025-01-31 15:12] LABS: Alanine Aminotransferase 14 U/L (0-40); Albumin Level 3.9 g/dL (3.5-5.0); Alkaline Phosphatase 70 U/L (39-117); Anion Gap 13 (12-20); Aspartate Amino Transferase 57 U/L (5-37); Blood Urea Nitrogen 12 mg/dL (9-16); Calcium 9.3 mg/dL (8.4-10.2); Carbon Dioxide 27 mmol/L (22-29); Chloride 106 mmol/L (96-108); Creatinine Clr Calc Pharmacy 67.4; Estimated Glomerular Filt Rate > 60; Magnesium 1.8 mg/dL (1.6-2.6); Potassium 3.8 mmol/L (3.3-5.1); Sodium 142 mmol/L (135-145); Total Protein 7.3 g/dL (6.5-8.0)
[2025-01-31 15:26] LABS: Thyroid Stimulating Hormone 0.77 uIU/mL (0.32-4.0)
--- NOTE | 2025-01-31 15:26 | PC.NURSE ---
Call received from Pts son Baltazar. Baltazar reports he left Pt at home this AM after eating jean donuts. Upon his return, he was unable to locate his father and began calling around looking for him. Baltazar reports Pt has confusion at a baseline but did not sleep well last night and has had increased memory issues lately. Baltazar advised that workup is still in the process at this time but hope to know more later on. Baltazar reports he does not have transportation to assist with getting Pt home if discharged. Baltazar leaves his contact # [phone] as well as his brother Mahendra [phone].
--- OUTSIDE RECORDS SUMMARY | 2025-01-31 16:54 | XMS_ITS | Clinical Summary ---
Author Organization [facility] ity Address [address] [place] [address] Care Team Providers Care Crew Person Name Role Phone Unavailable Primary Care Provider Unavailabl e Social History Tobacco Use Types Packs/Day Years Used Date Smoking Tobacco: Never Assessed Sex and Gender Information Value Date Recorded Sex Assigned at Not on file Legal Sex Male 10:13 AM EST Gender Identity Not on file Sexual Orientation Not on file Plan of Treatment Health Maintenance Due Date Last Done Comments DTaP,Tdap,and Td Vaccines (1 - Tdap) 1969 Pneumococcal Vaccine: 50+ Ye ars (1 of 1 - PCV) 2000 Zoster Vaccines (1 of 2) 2000 COVID-19 Vaccine (1 - 2023-2 5 season) 2024 Depression Screening 06/01/2024 Influenza Vaccine (#1) 2025 RSV Immunization Adult Patie nts (1 - 1-dose 75+ series) 2025 HIB [...] patient's age to complete this topic Meningococcal B Vaccine Aged Out No l onger eligible based on patient's age to complete this topic RSV Immunization Patients Un amairani 20 months Aged Out No longer eligible b ased on patient's age to complete this topic Varicella Vaccines Aged Out No longer eligible based on patient's age to complete this topic Advance Directives Documents on File Type Date Recorded 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
--- NOTE | 2025-01-31 17:35 | PC.NURSE ---
Call placed to [facility] in [place] to verify Pts methadone dose. This RN spoke with Bijan who verifies the following: Methadone 40mg daily, last dose 01/31/25 @ 0920. Bijan reports Pt does not regularly receive take home doses, however did receive doses for 01/29 and 01/30 only due to the holiday. Information read back for accuracy. Methadone Verification form completed and faxed to pharmacy for processing. ED provider and anesthesiologist attending aware.
[2025-01-31 17:46] LABS: Resp Syncy Virus RNA Qual PCR NEGATIVE (Negative); SARS COV2 PCR INHOUSE NEGATIVE (Negative)
--- NOTE | 2025-01-31 18:04 | MHC.CM.ED ---
Addendum entered by Marcie Miller 02/02/25 19:50: CM received email from [facility]. Pt has fci option. His income is too high for standard . She spoke with son Baltazar. She suggested he look at other medicare advantage programs that my meet his father's needs better. Pt is alert. Sitting up in recliner in overflow. Watching TV. Eating dinner. Pt refused his methadone today. Has not taken any methadone since his arrival. Addendum entered by Marcie Miller 01/31/25 19:01: 8 referrals placed within 50 miles that accept Methadone. Pt will be difficult to place due to methadone MAT and [employer] Medicare. Original Note: CM met with patient with diplomatic interpreter/translator. Pt is awake. Speech is at times muffled, however patient has very ill fitting dentures and is mouth is very dry. Pt sucking on ice chip. Pt is speaking with CM in Croatian. He knows he is in the [facility], but does not know why. He tells me he has a weekly nurse and she sets up his medications for the week. He tells me he has MOW. Has a cane, walker and wheelchair. Pt tells me he goes to the [facility] for his methadone every day. States his son, Baltazar brings him. He tells CM he takes 40 mg daily. He admits to falling recently and needed help from his son to get up. Pt cannot tell CM when this accident happened. Pt tells CM that 'he lost his energy . He is aware that he will remain in the ED and that PT will evaluate him in the morning forSTR. Pt has [employer] Medicare. CM spoke with son, Baltazar ([phone]). Baltazar tells YAMINI he is the HCP and POA. POA paperwork is on file. HCP is not. Baltazar verifies all of the above information provided by the patient. He tells CM that he takes his father daily to [facility] in [place] for his methadone. He tells CM that his father recently started methadone in December. He thinks it has been about 2 weeks. He took his father for his methadone today via Wheelchair. They went to [employer] and his father ate about 3/4 of a breakfast sandwich and some coffee. He admits his father's po intake is poor and he hasn't been eating well. He admits his father slept poorly last night and that he has not bounced back to himself after his last hospitalization ([facility] 12/17-12/28). He had a ICU stay and was intubated. He did not go to [facility] because a facility could not be found that accepted his insurance. He was not using methadone at that time. Baltazar believes his father needs STR and understands it might not be local. He understands that methadone is not given at all facilities. He understands that his father may need to go to [facility]. He is agreeable. Baltazar is requesting help with MH application. He tells that there has been some issues with his methadone and his insurance. Pt has [employer] Medicare. Pt is an [employer] vet. [facility] uses [place] [facility] in [place] [facility] [address]. He does not receive any other services from the [facility] and does not have VA insurance. CM will place a referral to [facility] Financial services with Baltazar as the contact. Referrals will be placed. Primary RN and Provider aware of above. Methadone was confirmed by Primary RN.
--- NOTE | 2025-01-31 21:00 | HE.PHANOTE ---
METHADONE CONFIRMATION SHEET PATIENT TAKES 40MG FROM [facility] . LAST DOSE 01/31/25 @ 4492
[2025-02-01 05:20] VITALS: BP 106/60; PULSE 85; RESP 16; TEMP 37.3; O2SAT 93
--- NOTE | 2025-02-01 06:38 | PC.NURSE ---
Assumed care of pt at 1999, pt was transported to unit?via stretcher from?ED. Pt A&O 2-3. Pt able to make needs known. Pharmacy contacted to perform med rec with pt. See flowsheets for more information. At approx 0040 bladder scan was obtained due to poor urine output. Bladder scan 431 ml, ED Case Management provider OSMANY Cooley notified, order placed for bowen catheter. RN successfully inserted?bowen catheter using sterile?technique. Call haney in reach. All safety measures in place. Pt able to self reposition throughout the night.?
--- NOTE | 2025-02-01 08:28 | MHC.CM.ED ---
Addendum entered by Josey Cox 02/01/25 11:27: Physical therapy eval completed. Short term rehab is recommended. Referral sent to facilities still reviewing: [facility], [facility], [facility], [facility] and [facility]. Original Note: Patient remains in ER overflow. Physical therapy eval is pending. Received telephone call from [facility] stating they are contracted with Ofelia Dodson. Continue to monitor for d/c needs.
--- NOTE | 2025-02-01 11:49 | MHC.CM.ED ---
No SNF bed offers at this time. Referral sent within 50 miles of patient's home. Continue to monitor for d/c needs.
[2025-02-01 14:00] VITALS: BP 123/67; PULSE 81; RESP 17; TEMP 37.2; O2SAT 95
--- NOTE | 2025-02-01 15:08 | PHA.MEDREC ---
Addendum entered by Moni Delgado RPh 02/01/25 15:18: [facility] reviewed Original Note: Pharmacy Consult ? Medication Reconciliation Pharmacy has completed the medication reconciliation. Patient poor historian. Got list from [place] to confirm med list.
[2025-02-01 19:31] VITALS: BP 123/67; PULSE 82; RESP 18; TEMP 36.8; O2SAT 92
[2025-02-02 05:59] VITALS: BP 145/72; PULSE 95; RESP 18; TEMP 36.7; O2SAT 99
--- NOTE | 2025-02-02 08:42 | MHC.CM.ED ---
Patient remains in ER overflow. Physical therapy is rec STR. Placement has been difficult to find due to [employer] insurance and being on Methadone. Referral will be broadcasted throughout the state [facility] at this time. Continue to monitor for d/c needs.
[2025-02-02 14:00] VITALS: BP 127/73; PULSE 72; RESP 16; TEMP 36.7; O2SAT 94
--- NOTE | 2025-02-02 17:34 | PC.NURSE ---
Methadone ordered for patient, per pharmacy note patient take 40mg daily and last dose received 02/10/25. Patient refused methadone stating he no longer takes Methadone.
--- NOTE | 2025-02-02 17:47 | PC.NURSE ---
Notice redness around IV site, patient c/o discomfort, IV removed
--- NOTE | 2025-02-02 17:48 | PC.NURSE ---
Patient oob few steps with 1 assist to the chair, compete bed change performed due to bowen leaking. Bowen readjusted and akshat care provided. Bowen now draining yellow urine,
[2025-02-02 20:02] VITALS: BP 104/62; PULSE 68; RESP 18; TEMP 36.1; O2SAT 96
[2025-02-02] MEDS: Calcium + Vitamin D 250 MG TABLET PO (21:45)
[2025-02-02] MEDS: Divalproex Sodium ER 250 MG TAB.ER.24H 1250 MG PO (21:46)
--- NOTE | 2025-02-02 22:09 | PC.NURSE ---
Took over patient's care at 1900. Patient alert and oriented, forgetful. Vitals stable, l/s clear, abd soft. Richardson intact, draining clear yellow urine. Assisted patient back to bed from recliner, bedtime medications administered per mar, offers no complaints at this time. Warm blanket provided, lights dimmed.
[2025-02-03 06:25] VITALS: BP 131/58; PULSE 58; RESP 16; TEMP 36.3; O2SAT 96
--- NOTE | 2025-02-03 07:07 | PC.NURSE ---
Addendum entered by Amelia Padron RN 02/03/25 07:36: Patient is a 74-year-old male who was found to be slightly off from his usual mental state per the meals on wheels labor and delivery nurse today and was EMS was called. The patient is found to be sleepy. He does apparently live alone. There was a documented history of bipolar, opioid use disorder, cognitive impairment. Patient alert and cooperative. Lungs coarse throughout. Respirations even and non-labored. Abdomen soft, non-tender with positive bowel sounds. Positive pedal pulses with no edema. PT recommends STR. CM involved and patient will be a difficulty placement secondary to insurance and daily methadone. Original Note: Medical History Drug overdose Opioid use disorder, severe, on maintenance therapy
[2025-02-03] MEDS: Calcium + Vitamin D 250 MG TABLET PO ×2 (10:14→21:26)
--- NOTE | 2025-02-03 11:00 | PC.NURSE ---
Patient noted to have a phlebitis to his left antecub secondary to a PIV. Provider notified. Warm compresses and keflex ordered.
[2025-02-03 14:00] VITALS: BP 109/66; PULSE 79; RESP 18; TEMP 36.4; O2SAT 94
--- NOTE | 2025-02-03 14:36 | MHC.CM.ED ---
Patient remains in ER overflow. Physical therapy recommending STR. Patient has been difficult to place d/t being on maintenance methadone and having [employer] for ins. Originally received notification from Jailene MONTEJO that patient declined Methadone this morning and stated he wasn't on methadone. Later received notification from Jailene that patient now requesting methadone. Continue to monitor for d/c needs.
[2025-02-03 19:56] VITALS: BP 128/68; PULSE 66; RESP 18; TEMP 36.2; O2SAT 96
[2025-02-03] MEDS: Divalproex Sodium ER 250 MG TAB.ER.24H 1250 MG PO (21:26)
--- NOTE | 2025-02-04 00:48 | PC.NURSE ---
Assumed care of patient at 1900. Patient calm and cooperative . Compliant with meds Sleeping at present time . Denies pain . Safety precautions in place. Bed alarm admissions recruiter haney within reach.
[2025-02-04 06:48] VITALS: BP 140/74; PULSE 56; RESP 16; TEMP 36.4; O2SAT 93
[2025-02-04] MEDS: Calcium + Vitamin D 250 MG TABLET PO ×2 (08:47→21:22)
[2025-02-04] MEDS: methADONE HCl 20 MG/2 ML ORAL.CONC 40 MG PO (09:16)
--- NOTE | 2025-02-04 18:48 | PC.NURSE ---
pt impuslive attempting to get out of bed without calling for assistance. pt extremely unsteady req 1-2a w/ walker to stand and pivot d/t severe L sided weakness.
[2025-02-04 20:25] VITALS: BP 106/76; PULSE 68; RESP 16; TEMP 36.3; O2SAT 95
[2025-02-04] MEDS: Divalproex Sodium ER 250 MG TAB.ER.24H 1250 MG PO (21:22)
--- NOTE | 2025-02-05 02:25 | PC.NURSE ---
Patient A/O x1 to self only. Confused and restless at times. Cooperative with care. Safety precautions in place. Patient resting comfortably.
[2025-02-05 06:06] VITALS: BP 158/75; PULSE 55; RESP 16; TEMP 36.4; O2SAT 96
[2025-02-05] MEDS: Calcium + Vitamin D 250 MG TABLET PO ×2 (08:51→21:45)
[2025-02-05] MEDS: methADONE HCl 20 MG/2 ML ORAL.CONC 40 MG PO (09:17)
--- NOTE | 2025-02-05 10:45 | PC.NURSE ---
Care of Pt assumed at change of shift. Pt sleeps for most of the morning. VSS Pt wakes for breakfast and feed self without issue. Med pass completed; Pt requires eligible medications crushed in applesauce. Pt sleeping at this time with NAD. Will continue to monitor.
[2025-02-05 14:15] VITALS: BP 119/64; PULSE 64; RESP 18; TEMP 36.4; O2SAT 94
[2025-02-05 20:58] VITALS: BP 107/65; PULSE 56; RESP 18; TEMP 36.7; O2SAT 92
[2025-02-05] MEDS: Divalproex Sodium ER 250 MG TAB.ER.24H 1250 MG PO (21:45)
[2025-02-06] VITALS (8 sets, daily range): BP systolic 106–135; BP diastolic 58–70; PULSE 58–67; RESP 8–16; TEMP 35.9–36.6; O2SAT 93–97
--- NOTE | 2025-02-06 08:00 | MHC.EDTECH ---
pt ate 25% breakfast
[2025-02-06] MEDS: Calcium + Vitamin D 250 MG TABLET PO (08:27)
[2025-02-06] MEDS: methADONE HCl 20 MG/2 ML ORAL.CONC 40 MG PO (08:34)
--- NOTE | 2025-02-06 09:00 | MHC.EDTECH ---
pt had a little bit of redness in his groin barrier cream was applied
--- NOTE | 2025-02-06 09:00 | MHC.EDTECH ---
pt was assisted with a bed bath and teeth brushed with complete linen change and stand and pivot to the recliner
--- NOTE | 2025-02-06 09:20 | MHC.CM.ED ---
Patient remains in ER overflow. My bed offers at this time. Still waiting to hear from [facility], [facility] and [facility]. Spoke with patient's son, Baltazar, via telephone at [phone]. Difficulties with finding STR placement explained. Baltazar is going to reach out to family to see if anyone else can help care for him at home. CM will back Baltazar at 3pm to discuss d/c plan. Continue to monitor for d/c needs.
--- NOTE | 2025-02-06 11:46 | MHC.EDTECH ---
pt was assisted to bed
--- NOTE | 2025-02-06 12:53 | MHC.EDTECH ---
pt ate 0% lunch
--- NOTE | 2025-02-06 14:02 | ECG_ITS ---
Test Reason : AMS Blood Pressure : */* mmHG Vent. Rate : 63 BPM Atrial Rate : 63 BPM P-R Int : 156 ms QRS Dur : 84 ms QT Int : 408 ms P-R-T Axes : 58 -4 30 degrees QTcB Int : 417 ms Normal sinus rhythm Normal ECG When compared with ECG of 31-Jan-2025 13:02, Premature atrial complexes are no longer Present QT has shortened Referred By: Kathy Puentes Electronically Signed By: LINCOLN RICHMOND MD
--- NOTE | 2025-02-06 14:09 | PC.NURSE ---
pt is very drowsy and difficult to keep awake during conversation. Provider was at the bedside and plan is for the pt to return to the main for closer observation
--- NOTE | 2025-02-06 14:12 | MHC.EDTECH ---
pt voided 200ml in the bowen
[2025-02-06 14:30] LABS: Glucose, Whole Blood 80 mg/dL (60-115)
[2025-02-06 14:43] LABS: MANUAL DIFF FLAG NO
[2025-02-06 14:46] LABS: Hematocrit 41.8 % (42.0-52.0); Hemoglobin 13.5 g/dl (14.0-18.0); Imm Gran Abs Auto 0.07 X10*3/uL (0.00-0.03); Imm Gran Pct Auto 0.9 % (0.0-0.4); Lymphocytes Absolute Auto 3.2 X10*3/uL (1.2-4.9); Mean Corpuscular HGB Conc 32.3 g/dl (31.0-36.0); Mean Corpuscular Hemoglobin 27.6 pg (27.0-33.0); Mean Corpuscular Volume 85.3 fL (80.0-98.0); NRBC Abs Auto 0.000 X10*3/uL (0.0-0.012); NRBC Pct Auto 0.0 /100WBC (0.0-0.2); Platelet Count 263 X10*3/uL (160-400); Red Blood Count 4.90 X10*6/uL (4.60-5.80); White Blood Count 7.8 X10*3/uL (4.8-10.8)
[2025-02-06 14:56] LABS: Ammonia 36 umol/L (13-55)
[2025-02-06 15:01] LABS: Glucose, Whole Blood 116 mg/dL (60-115)
[2025-02-06 15:03] LABS: Alanine Aminotransferase 7 U/L (0-40); Albumin Level 4.0 g/dL (3.5-5.0); Alkaline Phosphatase 71 U/L (39-117); Anion Gap 15 (12-20); Aspartate Amino Transferase 23 U/L (5-37); Blood Urea Nitrogen 10 mg/dL (9-16); Calcium 10.4 mg/dL (8.4-10.2); Carbon Dioxide 27 mmol/L (22-29); Chloride 101 mmol/L (96-108); Creatinine Clr Calc Pharmacy 64.5; Estimated Glomerular Filt Rate > 60; Magnesium 2.2 mg/dL (1.6-2.6); Potassium 4.7 mmol/L (3.3-5.1); Sodium 138 mmol/L (135-145); Total Protein 8.7 g/dL (6.5-8.0)
[2025-02-06 15:07] LABS: COVID-19 Test Negative (Negative); IDNOW Serial# 55D5AD1C
[2025-02-06 15:09] LABS: IDNOW Serial# 08D9AD1C; Influenza B2 Negative (Negative)
[2025-02-06 15:10] LABS: Appearance Urine Cloudy; Glucose Urine UA 250 mg/dL (Negative); PH 6.5 (5.0-9.0); Specific Gravity - Urine >= 1.030 (1.005-1.025); UMIC TRIGGER UACC YES
[2025-02-06 15:13] LABS: Troponin-I High Sensitivity < 2.7 ng/L (<3.5-35.0)
[2025-02-06 15:17] LABS: Cannabinoid Screen Urine Not Detected (Not Detect)
[2025-02-06 15:26] LABS: UACC Culture Trigger YES
[2025-02-06 15:31] LABS: Glucose, Whole Blood 127 mg/dL (60-115)
[2025-02-06 16:03] LABS: Glucose, Whole Blood 119 mg/dL (60-115)
--- NOTE | 2025-02-06 17:26 | P.HPHOSP_ITS ---
History of Present Illness Date of Service: 02/06/25 Attending physician on admission: Maile Sales Chief Complaint: Lethargy, FTT The pt is a 74-year-old male with a PMH significant for polysubstance use disorder on methadone, GERD, and mood disorder who initially presented to the ED on 01/31/2025 for weakness and question of altered mental status. Initial workup was negative without any acute findings and pt was placed in PT/CM care while awaiting STR placement. Today pt was found to be increasingly lethargic and altered from baseline. Repeat labs were drawn which revealed UA positive for UTI. No significant electrolyte abnormalities. Renal function at baseline. Lactic acid WNL. Ammonia WNL. Troponin negative. CXR showing chronic interstitial lung disease and mild interstitial lung edema vs acute small airway inflammatory process. Pt was treated with ceftriaxone. Pt seen and evaluated where he is alert and oriented to self and partially to place. Is uncertain why he is in the hospital and unable to state for how long. Not oriented to time. Pt otherwise has no acute medical complaints. Pt will be brought to the hospital floor and admitted for acute metabolic encephalopathy in setting of UTI and failure to thrive. Review of Systems 2 Review of Systems: Yes Unobtainable due to mental status [facility] Medical History Drug overdose Opioid use disorder, severe, on maintenance therapy Social History Household Members: Unknown / Unable to assess Household Members Other:: Son Housing: Unknown / Unable to assess Do you presently have visiting nurse or other home services: No Unable to assess alcohol history related to: Unable to respond Alcohol intake: current Alcohol intake frequency: does not drink Comment: 1:1 health record technician at bedside Patient Tobacco Use Status: Tobacco use Unknown Tobacco use type: Cigarette Cigarette Packs Per Day: 0.5 Cigarettes Per Day: 10.0 Years Smoked: 50 e-Cigarette/Vaping Use: Never Used Second Hand Smoke Exposure: Yes Use of substances other than those prescribed or required for medical reasons: Unable to respond Substance Use Type: Crack/Cocaine, Heroin and Marijuana Advance Directives: No Advance Directives Information Provided: No Advance Directives Date on File: 12/17/24 Nutrition Risks: No Nutritional Risk service: Yes Sexual orientation: Straight/Heterosexual Meds Allergies Allergy/AdvReac Type Severity Reaction Status Date / Time No Known Allergies (No Known Allergy Verified 01/31/25 12:20 Allergies*) Active Medications: Current Medications Acetaminophen (Acetaminophen 325 Mg Tablet) 650 mg PO Q6H PRN PRN Reason: Headache/Pain, Scale 1-10 Amitriptyline HCl (Amitriptyline Hcl 10 Mg Tablet) 20 mg PO BEDTIME [facility] On Hold: 02/06/25 14:09 Last Admin: 02/05/25 21:45 Dose: 20 mg Calcium Carbonate/Cholecalciferol (Calcium + Vitamin D 250 Mg Tablet) 250 mg PO BID [facility] Last Admin: 02/06/25 08:27 Dose: 250 mg Cephalexin HCl (Cephalexin 500 Mg Capsule) 500 mg PO QID [facility] Last Admin: 02/06/25 16:56 Dose: Not Given Cyanocobalamin (Cyanocobalamin (Vitamin B-12) 1,000 Mcg Tablet) 1,000 mcg PO DAILY [facility] Last Admin: 02/06/25 08:26 Dose: 1,000 mcg Divalproex Sodium (Divalproex Sodium Er 250 Mg Tab.Er.24h) 1,250 mg PO BEDTIME [facility] Last Admin: 02/05/25 21:45 Dose: 1,250 mg Famotidine (Famotidine 20 Mg Tablet) 20 mg PO DAILY [facility] Last Admin: 02/06/25 08:26 Dose: 20 mg Gabapentin (Gabapentin 300 Mg Capsule) 900 mg PO BID@0800,1200 [facility] On Hold: 02/06/25 14:09 Last Admin: 02/06/25 13:25 Dose: Not Given Gabapentin (Gabapentin 400 Mg Capsule) 1,200 mg PO BEDTIME [facility] On Hold: 02/06/25 14:09 Last Admin: 02/05/25 21:44 Dose: 1,200 mg Magnesium Oxide (Magnesium Oxide 400 Mg Tablet) 400 mg PO DAILY [facility] Last Admin: 02/06/25 08:26 Dose: 400 mg Memantine (Memantine Hcl 5 Mg Tablet) 5 mg PO BID [facility] Last Admin: 02/06/25 08:25 Dose: 5 mg Methadone HCl (Methadone Hcl 20 Mg/2 Ml Oral.Conc) 40 mg PO DAILY [facility] Last Admin: 02/06/25 08:34 Dose: 40 mg Naloxone HCl (Naloxone Hcl Nasal 4 Mg [place]) 4 mg NOSTRILALT Q2M PRN PRN Reason: opioid overdose Naproxen (Naproxen 500 Mg Tablet) 500 mg PO BID [facility] Last Admin: 02/06/25 08:24 Dose: 500 mg Quetiapine Fumarate (Quetiapine Fumarate 100 Mg Tablet) 100 mg PO BEDTIME [facility] On Hold: 02/06/25 14:09 Last Admin: 02/05/25 21:45 Dose: 100 mg Senna/Docusate Sodium (Sennosides/Docusate Sodium Tablet) 2 tab PO BEDTIME PRN PRN Reason: Constipation Vitamin D (Cholecalciferol (Vitamin D3) 25 Mcg Tablet) 50 mcg PO DAILY [facility] Last Admin: 02/06/25 08:25 Dose: 50 mcg Home Medications ?Medication ?Instructions ?Recorded ?Confirmed ?Last Taken ?Type famotidine 20 mg tablet 20 mg PO DAILY 11/18/2208/2302/25/24 History amitriptyline 10 mg tablet 20 mg PO BEDTIME 02/26/24 0 02/01/25 02/25/24 History cholecalciferol (vitamin D3) 50 50 mcg PO DAILY 02/01/25 02/25/24 History mcg (2,000 unit) tablet (Vitamin D3) cyanocobalamin (vitamin B-12) 1,000 mcg PO DAILY 02/2502/01/25 02/25/24 History 1,000 mcg tablet divalproex 250 mg tablet,extended 1,250 mg PO BEDTIME 02/26/24 02/01/25 02/25/24 History release 24 hr gabapentin 300 mg capsule 1,200 mg PO BEDTIME 02/26/24 02/01/25 02/25/24 History gabapentin 300 mg capsule 900 mg PO BID@0800,1200 01/3102/01/25 02/26/24 History meloxicam 15 mg tablet 7.5 mg PO DAILY 02/26/2408/2302/25/24 History sennosides 8.6 mg-docusate sodium 2 tab PO BEDTIME PRN Constipation 02/26/24 02/01/25 Unknown History 50 mg tablet (Senna Plus) vitamin E (dl, acetate) 45 mg (100 45 mg PO DAILY 01/3102/01/25 02/25/24 History unit) capsule quetiapine 100 mg tablet (Seroquel) 100 mg PO BEDTIME 07/06/24 02/01/25 Unknown History memantine 5 mg tablet 5 mg PO BID 12/01/24 5 Unknown History methadone 10 mg tablet 40 mg PO DAILY 02/01/2509/2301/31/25 History Physical Exam 2 Vital Signs and Narrative: Vital Signs: Last Vital Signs Temp 96.6 F L 02/06/25 17:06 Pulse 58 02/06/25 17:06 Resp 8 L 02/06/25 17:06 BP 135/70 02/06/25 17:06 Pulse Ox 95 02/06/25 17:06 O2 Del Method Room Air 02/06/25 17:06 BMI result Body Mass Index 22.2 General: AOx1, partly to place though not to time or situation. Appears dissheveled, cachectic, frail. Resp: CTA bilaterally CVS: S1, S2, RRR GI: +BS, NT, no distention Skin: Warm, dry Neuro: Cranial nerves II-XII grossly intact bilaterally. Motor grossly intact bilaterally Extremities: No edema Psych: Pleasantly confused Results Labs 02/06/25 14:39 02/06/25 14:39 Labs: Laboratory Results - last 24 hr 02/06/25 02/06/25 02/06/25 14:26 14:39 14:56 MCV 85.3 MCH 27.6 MCHC 32.3 RDW 14.8 Plt Count 263 D MPV 9.8 Immature Gran % (Auto) 0.9 H Neut % (Auto) 45.7 Lymph % (Auto) 40.3 H [place] % (Auto) 8.7 Eos % (Auto) 4.0 Baso % (Auto) 0.4 Lymph # (Auto) 3.2 [place] # (Auto) 0.7 Eos # (Auto) 0.3 Baso # (Auto) 0.0 Abs Immat Gran (auto) 0.07 H Absolute Neuts (auto) 3.6 Absolute Nucleated RBC 0.000 Nucleated RBC % (auto) 0.0 Anion Gap 15 Estim Creat Clear Calc 64.5 Estimated GFR > 60 POC Glucose 80 116 H Random Glucose 77 Lactic Acid Calcium 10.4 H D Magnesium 2.2 Total Bilirubin 0.2 Direct Bilirubin < 0.2 AST 23 ALT 7 Alkaline Phosphatase 71 Ammonia 36 Total Protein 8.7 H Albumin 4.0 Urine Color Urine Appearance Urine pH Ur Specific [place] Urine Protein Urine Glucose (UA) Urine Ketones Urine Blood Urine Nitrite Ur Leukocyte Esterase Urine RBC Urine WBC Ur Squamous Epith Cells Urine Bacteria Hyaline Casts Urine Opiates Screen Ur Buprenorphine Scrn Ur Oxycodone Screen Urine Methadone Screen Urine Fentanyl Screen Ur Barbiturates Screen Ur Phencyclidine Scrn Ur Amphetamines Screen U Benzodiazepines Scrn Urine Cocaine Screen U Marijuana (THC) Screen Ethyl Alcohol < 10 COVID-19 ([facility]) Negative COVID-19 Clin Com See Note Influenza Type A ([facility]) Negative Influenza Type B ([facility]CO) Negative Influenza A & B Note See Note 02/06/25 02/06/25 02/06/25 15:02 15:28 15:59 MCV MCH MCHC RDW Plt Count MPV Immature Gran % (Auto) Neut % (Auto) Lymph % (Auto) [place] % (Auto) Eos % (Auto) Baso % (Auto) Lymph # (Auto) [place] # (Auto) Eos # (Auto) Baso # (Auto) Abs Immat Gran (auto) Absolute Neuts (auto) Absolute Nucleated RBC Nucleated RBC % (auto) Anion Gap Estim Creat Clear Calc Estimated GFR POC Glucose 127 H 119 H Random Glucose Lactic Acid Calcium Magnesium Total Bilirubin Direct Bilirubin AST ALT Alkaline Phosphatase Ammonia Total Protein Albumin Urine Color Yellow Urine Appearance Cloudy Urine pH 6.5 Ur Specific [place] >= 1.030 H Urine Protein 30 (1+) H Urine Glucose (UA) 250 H Urine Ketones Trace Urine Blood Moderate (2+) H Urine Nitrite Positive H Ur Leukocyte Esterase Moderate (2+) H Urine RBC >20 H Urine WBC 21-50 H Ur Squamous Epith Cells 3-5 Urine Bacteria None Seen Hyaline Casts 11-20 Urine Opiates Screen Not Detected Ur Buprenorphine Scrn Not Detected Ur Oxycodone Screen Not Detected Urine Methadone Screen Positive H Urine Fentanyl Screen Not Detected Ur Barbiturates Screen Not Detected Ur Phencyclidine Scrn Not Detected Ur Amphetamines Screen Not Detected U Benzodiazepines Scrn Not Detected Urine Cocaine Screen Not Detected U Marijuana (THC) Screen Not Detected Ethyl Alcohol COVID-19 ([facility]IE) COVID-19 Clin Com Influenza Type A ([facility]) Influenza Type B ([facility]) Influenza A & B Note 02/06/25 16:49 MCV MCH MCHC RDW Plt Count MPV Immature Gran % (Auto) Neut % (Auto) Lymph % (Auto) [place] % (Auto) Eos % (Auto) Baso % (Auto) Lymph # (Auto) [place] # (Auto) Eos # (Auto) Baso # (Auto) Abs Immat Gran (auto) Absolute Neuts (auto) Absolute Nucleated RBC Nucleated RBC % (auto) Anion Gap Estim Creat Clear Calc Estimated GFR POC Glucose Random Glucose Lactic Acid 1.7 Calcium Magnesium Total Bilirubin Direct Bilirubin AST ALT Alkaline Phosphatase Ammonia Total Protein Albumin Urine Color Urine Appearance Urine pH Ur Specific [place] Urine Protein Urine Glucose (UA) Urine Ketones Urine Blood Urine Nitrite Ur Leukocyte Esterase Urine RBC Urine WBC Ur Squamous Epith Cells Urine Bacteria Hyaline Casts Urine Opiates Screen Ur Buprenorphine Scrn Ur Oxycodone Screen Urine Methadone Screen Urine Fentanyl Screen Ur Barbiturates Screen Ur Phencyclidine Scrn Ur Amphetamines Screen U Benzodiazepines Scrn Urine Cocaine Screen U Marijuana (THC) Screen Ethyl Alcohol COVID-19 ([facility]) COVID-19 Clin Com Influenza Type A ([facility]) Influenza Type B ([facility]ISCO) Influenza A & B Note Imaging Radiologist's Impressions: Impressions Chest X-Ray 02/06/25 14:46 IMPRESSION: Chronic interstitial lung disease with mild interstitial lung edema versus acute small airway inflammatory process. Overall worsening since prior exam. Electronically signed by: Kalin Fernandez MD 02/06/2025 02:59 PM EDT RP Assessment and Plan (1) Adult failure to thrive: Status: Acute (2) Acute UTI: Status: Acute (3) Acute metabolic encephalopathy: Status: Acute Plan The pt is a 74-year-old male with a PMH significant for polysubstance use disorder on methadone, GERD, and mood disorder who initially presented to the ED on 01/31/2025 for weakness and question of altered mental status. Pt will be brought to the hospital floor and admitted for acute metabolic encephalopathy in setting of UTI and failure to thrive. Acute metabolic encephalopathy in setting of UTI UA+, altered from baseline No sepsis Will treat with ceftriaxone, day 1 CT of head pending Follow urine culture Monitor mentation GERD Continue famotidine Peripheral neuropathy Hold gabapentin due to somnolence FTT CM working on STR placement PT evaluation as needed Chronic coccyx wounds Wound care recommendations from previous admission: 1. Turn and Reposition every 2 hours and as needed for patient comfort.? Use pillows or wedges to support off loading positions. 2. Off Load all bony prominences with use of pillows and heel boots if needed.? Apply Preventative foams where needed. ? 3. Monitor for incontinence and moisture control, use barrier creams when needed for prevention and treatment. 4. Provide adequate and supplemental nutrition.? 5. Order low air loss mattress. 6. When applicable maintain blood glucose levels per Providers order. Coccyx and Buttock - Off Load Pressure with Q2 hr turns and use of pillows - Routine cleansing.? Apply skin prep allow to dry.? Cover with foam dressing to aid in off loading and protection from friction. Change every 3 days and PRN. Polysubstance use disorder Continue methadone Full Code Attending:?Dr. Colon DVT Prophylaxis: Lovenox Pt will require a hospitalization of at least two nights for treatment of?acute metabolic encephalopathy in the setting of UTI and failure to thrive. Pt will require hospital level care for administration of IV antibiotics and close monitoring of mentation while awaiting safe disposition. Quality Stroke Does the patient have a stroke diagnosis?: No VTE Prior VTE?: No VTE Risk Level:: Medical - moderate - high VTE Device Contraindication: Treatment Not Indicated VTE Drug Contraindication: N/A - Med Ordered
[2025-02-07] VITALS (7 sets, daily range): BP systolic 113–157; BP diastolic 59–79; PULSE 60–70; RESP 11–19; TEMP 36.1–36.9; O2SAT 90–96; BMI 20.3
--- NOTE | 2025-02-07 03:13 | PC.NURSE ---
hematuria with large clot. appears as fruit punch. PA contacted
--- NOTE | 2025-02-07 03:14 | PM.EVENT ---
Event Note Date of Service: 02/07/25 Event Note: pt developed gross hematuria with a large clot after lovenox. held further doses. check stat CBC and placed urology consult. Time Spent With Patient Time: Total time managing care of this patient today ____ minutes.
[2025-02-07 06:00] LABS: Hematocrit 33.3 % (42.0-52.0); Hemoglobin 10.9 g/dl (14.0-18.0); Mean Corpuscular HGB Conc 32.7 g/dl (31.0-36.0); Mean Corpuscular Hemoglobin 27.5 pg (27.0-33.0); Mean Corpuscular Volume 83.9 fL (80.0-98.0); NRBC Abs Auto 0.000 X10*3/uL (0.0-0.012); NRBC Pct Auto 0.0 /100WBC (0.0-0.2); Platelet Count 210 X10*3/uL (160-400); Red Blood Count 3.97 X10*6/uL (4.60-5.80); White Blood Count 7.0 X10*3/uL (4.8-10.8)
[2025-02-07 06:06] LABS: INTERNATIONAL NORM RATIO 1.1 (0.9-1.1); Prothrombin Time 13.0 SEC (10.9-12.4)
[2025-02-07 06:15] LABS: Anion Gap 14 (12-20); Blood Urea Nitrogen 10 mg/dL (9-16); Calcium 9.2 mg/dL (8.4-10.2); Carbon Dioxide 25 mmol/L (22-29); Chloride 105 mmol/L (96-108); Creatinine Clr Calc Pharmacy 74.0; Estimated Glomerular Filt Rate > 60; Potassium 4.8 mmol/L (3.3-5.1); Sodium 139 mmol/L (135-145)
[2025-02-07] MEDS: 0.9 % Sodium Chloride Flush 3 ML SYRINGE IVFLUSH ×3 (07:33→21:35)
[2025-02-07] MEDS: methADONE HCl 20 MG/2 ML ORAL.CONC 40 MG PO (09:50)
[2025-02-07] MEDS: Calcium + Vitamin D 250 MG TABLET PO ×2 (10:50→21:29)
--- NOTE | 2025-02-07 10:57 | PM.UROCN ---
History of Present Illness Consult details Consult date: 02/07/25 Narrative: 74-year-old male with a PMH significant for polysubstance use disorder on methadone, GERD, and mood disorder, bipolar. UTI Review of Systems Review of Systems: 10 point ROS negative other than noted in H and P PMFSH Past Medical History Medical History Drug overdose Opioid use disorder, severe, on maintenance therapy Social History Social History Household Members: None Household Members Other:: Son Housing: Assisted Living Facility Do you presently have visiting nurse or other home services: No Unable to assess alcohol history related to: Unable to respond Alcohol intake: current Alcohol intake frequency: does not drink Comment: sitter Patient Tobacco Use Status: Tobacco use Unknown Tobacco use type: Cigarette Cigarette Packs Per Day: 0.5 Cigarettes Per Day: 10.0 Years Smoked: 50 e-Cigarette/Vaping Use: Never Used Second Hand Smoke Exposure: Yes Substance Use Type: Crack/Cocaine, Heroin and Marijuana Advance Directives Date on File: 12/17/24 service: Yes Sexual orientation: Straight/Heterosexual Meds Allergies Allergy/AdvReac Type Severity Reaction Status Date / Time No Known Allergies (No Known Allergy Verified 01/31/25 12:20 Allergies*) Active Medications: Current Medications Acetaminophen (Acetaminophen 325 Mg Tablet) 650 mg PO Q6H PRN On Hold: 02/06/25 20:58 PRN Reason: Headache/Pain, Scale 1-10 Amitriptyline HCl (Amitriptyline Hcl 10 Mg Tablet) 20 mg PO BEDTIME [facility] On Hold: 02/06/25 14:09 Last Admin: 02/05/25 21:45 Dose: 20 mg Calcium Carbonate/Cholecalciferol (Calcium + Vitamin D 250 Mg Tablet) 250 mg PO BID [facility] Last Admin: 02/07/25 10:50 Dose: 250 mg Ceftriaxone Sodium (Ceftriaxone Sodium 1 Gm Vial) 1 gm IVPUSH Q24H [facility] Cephalexin HCl (Cephalexin 500 Mg Capsule) 500 mg PO QID [facility] On Hold: 02/06/25 21:08 Last Admin: 02/06/25 22:21 Dose: Not Given Cyanocobalamin (Cyanocobalamin (Vitamin B-12) 1,000 Mcg Tablet) 1,000 mcg PO DAILY [facility] Last Admin: 02/07/25 09:51 Dose: 1,000 mcg Divalproex Sodium (Divalproex Sodium Er 250 Mg Tab.Er.24h) 1,250 mg PO BEDTIME [facility] On Hold: 02/06/25 20:57 Last Admin: 02/05/25 21:45 Dose: 1,250 mg Enoxaparin Sodium (Enoxaparin Sodium 40 Mg/0.4 Ml Syringe) 40 mg SUBCUT Q24H [facility] On Hold: 02/07/25 03:13 Last Admin: 02/06/25 22:14 Dose: 40 mg Famotidine (Famotidine 20 Mg Tablet) 20 mg PO DAILY [facility] Last Admin: 02/07/25 09:51 Dose: 20 mg Gabapentin (Gabapentin 300 Mg Capsule) 900 mg PO BID@0800,1200 [facility] On Hold: 02/06/25 14:09 Last Admin: 02/06/25 13:25 Dose: Not Given Gabapentin (Gabapentin 400 Mg Capsule) 1,200 mg PO BEDTIME [facility] On Hold: 02/06/25 14:09 Last Admin: 02/05/25 21:44 Dose: 1,200 mg Valproic Acid 250 mg/ Sodium (Chloride) 102.5 mls @ 100 mls/hr IV Q6H [facility] Last Infusion: 02/07/25 10:27 Dose: Infused Acetaminophen (Ofirmev) 1,000 mg in 100 mls @ 400 mls/hr IV Q6H [facility] Last Infusion: 02/07/25 09:45 Dose: Infused Ketorolac Tromethamine (Ketorolac Tromethamine 10 Mg Tablet) 10 mg PO Q6H PRN PRN Reason: Pain, Moderate(Pain Scale 4-6) Magnesium Hydroxide (Milk Of Magnesia 30 Ml Oral.Susp) 30 ml PO DAILY PRN PRN Reason: Constipation Magnesium Oxide (Magnesium Oxide 400 Mg Tablet) 400 mg PO DAILY [facility] Last Admin: 02/07/25 09:52 Dose: 400 mg Melatonin (Melatonin 3 Mg Tablet) 6 mg PO BEDTIME PRN PRN Reason: Insomnia Memantine (Memantine Hcl 5 Mg Tablet) 5 mg PO BID [facility] Last Admin: 02/07/25 09:52 Dose: 5 mg Methadone HCl (Methadone Hcl 20 Mg/2 Ml Oral.Conc) 40 mg PO DAILY [facility] Last Admin: 02/07/25 09:50 Dose: 40 mg Naloxone HCl (Naloxone Hcl Nasal 4 Mg [place]) 4 mg NOSTRILALT Q2M PRN PRN Reason: opioid overdose Naproxen (Naproxen 500 Mg Tablet) 500 mg PO BID [facility] On Hold: 02/06/25 20:57 Last Admin: 02/06/25 08:24 Dose: 500 mg Quetiapine Fumarate (Quetiapine Fumarate 100 Mg Tablet) 100 mg PO BEDTIME [facility] On Hold: 02/06/25 14:09 Last Admin: 02/05/25 21:45 Dose: 100 mg Senna/Docusate Sodium (Sennosides/Docusate Sodium Tablet) 2 tab PO BEDTIME PRN PRN Reason: Constipation Sodium Chloride (0.9 % Sodium Chloride Flush 3 Ml Syringe) 3 ml IVFLUSH QSRIFT [facility] Last Admin: 02/07/25 07:33 Dose: 3 ml Vitamin D (Cholecalciferol (Vitamin D3) 25 Mcg Tablet) 50 mcg PO DAILY [facility] Last Admin: 02/07/25 09:51 Dose: 50 mcg Home Medications ?Medication ?Instructions ?Recorded ?Confirmed ?Last Taken ?Type famotidine 20 mg tablet 20 mg PO DAILY 11/18/22 02/01/25 02/25/24 History amitriptyline 10 mg tablet 20 mg PO BEDTIME 02/26/24 02/01/25 02/25/24 History cholecalciferol (vitamin D3) 50 50 mcg PO DAILY 02/26/24 02/01/25 02/25/24 History mcg (2,000 unit) tablet (Vitamin D3) cyanocobalamin (vitamin B-12) 1,000 mcg PO DAILY 02/26/24 02/01/25 02/25/24 History 1,000 mcg tablet divalproex 250 mg tablet,extended 1,250 mg PO BEDTIME 02/26/24 02/01/25 02/25/24 History release 24 hr gabapentin 300 mg capsule 1,200 mg PO BEDTIME 02/26/24 02/01/25 02/25/24 History gabapentin 300 mg capsule 900 mg PO BID@0800,1200 02/26/24 02/01/25 02/26/24 History meloxicam 15 mg tablet 7.5 mg PO DAILY 02/26/24 02/01/25 02/25/24 History sennosides 8.6 mg-docusate sodium 2 tab PO BEDTIME PRN Constipation 02/26/24 02/01/25 Unknown History 50 mg tablet (Senna Plus) vitamin E (dl, acetate) 45 mg (100 45 mg PO DAILY 02/26/24 02/01/25 02/25/24 History unit) capsule quetiapine 100 mg tablet (Seroquel) 100 mg PO BEDTIME 07/06/24 02/01/25 Unknown History memantine 5 mg tablet 5 mg PO BID 12/01/24 02/01/25 Unknown History methadone 10 mg tablet 40 mg PO DAILY 02/01/25 02/02/25 01/31/25 History Physical Exam Vital Signs: Vital Signs: Last Vital Signs Temp 98.2 F 02/07/25 10:00 Pulse 63 02/07/25 10:00 Resp 16 02/07/25 10:00 BP 149/72 H 02/07/25 10:00 Pulse Ox 96 02/07/25 10:00 O2 Del Method Room Air 02/07/25 10:00 BMI result Body Mass Index 22.2 Results Labs 02/08/25 05:37 02/07/25 05:56 Labs: Abnormal lab results 02/06/25 02/06/25 02/06/25 Range/Units 14:39 14:56 15:02 RBC (4.60-5.80) X10*6/uL Hgb 13.5 L D (14.0-18.0) g/dl Hct 41.8 L D (42.0-52.0) % Immature Gran % (Auto) 0.9 H (0.0-0.4) % Lymph % (Auto) 40.3 H (20-40) % Abs Immat Gran (auto) 0.07 H (0.00-0.03) X10*3/uL PT (10.9-12.4) SEC POC Glucose 116 H (60-115) mg/dL Calcium 10.4 H D (8.4-10.2) mg/dL Total Protein 8.7 H (6.5-8.0) g/dL Ur Specific [place] >= 1.030 H (1.005-1.025) Urine Protein 30 (1+) H (Neg-Trace) mg/dL Urine Glucose (UA) 250 H (Negative) mg/dL Urine Blood Moderate (2+) H (Negative) Urine Nitrite Positive H (Negative) Ur Leukocyte Esterase Moderate (2+) H (Negative) Urine RBC >20 H (0-2) /HPF Urine WBC 21-50 H (0-5) /HPF Urine Methadone Screen Positive H (Not Detect) ng/mL 02/06/25 02/06/25 02/07/25 Range/Units 15:28 15:59 05:56 RBC 3.97 L (4.60-5.80) X10*6/uL Hgb 10.9 L (14.0-18.0) g/dl Hct 33.3 L D (42.0-52.0) % Immature Gran % (Auto) (0.0-0.4) % Lymph % (Auto) (20-40) % Abs Immat Gran (auto) (0.00-0.03) X10*3/uL PT 13.0 H (10.9-12.4) SEC POC Glucose 127 H 119 H (60-115) mg/dL Calcium (8.4-10.2) mg/dL Total Protein (6.5-8.0) g/dL Ur Specific [place] (1.005-1.025) Urine Protein (Neg-Trace) mg/dL Urine Glucose (UA) (Negative) mg/dL Urine Blood (Negative) Urine Nitrite (Negative) Ur Leukocyte Esterase (Negative) Urine RBC (0-2) /HPF Urine WBC (0-5) /HPF Urine Methadone Screen (Not Detect) ng/mL Short CBC 02/06/25 02/07/25 Range/Units 14:39 05:56 WBC 7.8 7.0 (4.8-10.8) X10*3/uL Hgb 13.5 L D 10.9 L (14.0-18.0) g/dl Hct 41.8 L D 33.3 L D (42.0-52.0) % Plt Count 263 D 210 (160-400) X10*3/uL BMP 02/06/25 02/07/25 14:39 05:56 Sodium 138 139 Potassium 4.7 D 4.8 Chloride 101 105 Carbon Dioxide 27 25 BUN 10 10 Creatinine 0.94 0.82 Calcium 10.4 H D 9.2 D Liver Function 02/06/25 Range/Units 14:39 Total Bilirubin 0.2 (0.0-1.0) mg/dL Direct Bilirubin < 0.2 (0.0-0.5) mg/dL AST 23 (5-37) U/L ALT 7 (0-40) U/L Alkaline Phosphatase 71 (39-117) U/L Albumin 4.0 (3.5-5.0) g/dL Urine 01/31/25 02/06/25 Range/Units 12:58 15:02 Urine Color Yellow Yellow Urine Appearance Clear Cloudy Urine pH 6.0 6.5 (5.0-9.0) Ur Specific [place] 1.020 >= 1.030 H (1.005-1.025) Urine Protein Trace 30 (1+) H (Neg-Trace) mg/dL Urine Glucose (UA) Negative 250 H (Negative) mg/dL Assessment and Plan (1) Acute UTI: Status: Acute Plan Pt on IV Abx, urine and blood c/s pending Recommend US retroperitoneum (renal/bladder US) recommend flomax 0.4 mg daily and proscar 5 mg daily Procedures Date of Service Date of Service: 02/11/25
--- NOTE | 2025-02-07 14:12 | MHC.CM.PN ---
Patient was an ER case management patient looking for STR. SNF placement was difficult to find due to having [employer] Medicare and being on Methadone at [facility]. Patient was admitted for UTI and encephalopathy. Patient is currently confused. Spoke with patient's son/HCP, Baltazar, via telephone at [phone]. Patient lives with his sons, receives Methadone from [facility] and has [facility]. PCP verified. Copy of HCP/POA is from the [place] and verified to be on file. IMM explained and left bedside. Baltazar aware patient is admitted and will still be difficult to place. T/W reached out to [facility] in [facility], [facility] in [place] and [facility] in [place] via telephone on 02/06. Waiting for responses. Received telephone call from Juanito Castro RN for [place] homeless/outreach program. Juanito updated on patient status. Continue to monitor for d/c needs.
--- NOTE | 2025-02-07 15:37 | PC.NURSE ---
while being assisted to eat by A[employer], she noticed on a few occasions that he had a cough when drinking liquids, pt did not have any trouble with the food, this did not happen when I was at bedside and the pt was drinking liquids, OSMANY Tovar informed and swallow eval ordered and I called speech to inform and to hopefully get this done tonight. when giving his meds, I got a warning that APAP would exceed 3 g in a day and held. OSMANY Tovar informed. pt with nad, alert, sleeping most of the shift but easily woken
--- NOTE | 2025-02-07 16:36 | HO.PM.IMPN ---
Subjective Subjective Date of Service: 02/07/25 Interval History: Still AOx2, but appears more awake and alert Chronic lower back pain Noted to have gross hematuria with clots after Lovenox Review of Systems Review of Systems: Yes all other systems are reviewed and are negative Physical Exam Exam: Exam: General: AO to person and place, not to time or situation. Appears dissheveled, cachectic, frail. Resp: CTA bilaterally CVS: S1, S2, RRR GI: +BS, NT, no distention : Richardson in place with gross hematuria with large clot in tubing Skin: Warm, dry Neuro: Cranial nerves II-XII grossly intact bilaterally. Motor grossly intact bilaterally Extremities: No edema Psych: Pleasantly confused Vital Signs: Vital Signs: Last Vital Signs Temp 98.5 F 02/07/25 14:57 Pulse 64 02/07/25 14:57 Resp 11 L 02/07/25 14:57 BP 157/70 H 02/07/25 14:57 Pulse Ox 96 02/07/25 14:57 O2 Del Method Room Air 02/07/25 14:57 BMI result Body Mass Index 22.2 Objective Data Active Medications Acetaminophen (Acetaminophen 325 Mg Tablet) 650 mg PO Q6H PRN On Hold: 02/06/25 20:58 PRN Reason: Headache/Pain, Scale 1-10 Amitriptyline HCl (Amitriptyline Hcl 10 Mg Tablet) 20 mg PO BEDTIME [facility] On Hold: 02/06/25 14:09 Last Admin: 02/05/25 21:45 Dose: 20 mg Documented By: LARS Calcium Carbonate/Cholecalciferol (Calcium + Vitamin D 250 Mg Tablet) 250 mg PO BID [facility] Last Admin: 02/07/25 10:50 Dose: 250 mg Documented By: SULMA Ceftriaxone Sodium (Ceftriaxone Sodium 1 Gm Vial) 1 gm IVPUSH Q24H [facility] Last Admin: 02/07/25 15:58 Dose: 1 gm Documented By: SULMA Cephalexin HCl (Cephalexin 500 Mg Capsule) 500 mg PO QID [facility] On Hold: 02/06/25 21:08 Last Admin: 02/06/25 22:21 Dose: Not Given Documented By: DELANEY Non-Admin Reason: NPO Cyanocobalamin (Cyanocobalamin (Vitamin B-12) 1,000 Mcg Tablet) 1,000 mcg PO DAILY [facility] Last Admin: 02/07/25 09:51 Dose: 1,000 mcg Documented By: SULMA Divalproex Sodium (Divalproex Sodium Er 250 Mg Tab.Er.24h) 1,250 mg PO BEDTIME [facility]AB[facility] On Hold: 02/06/25 20:57 Last Admin: 02/05/25 21:45 Dose: 1,250 mg Documented By: LARS Enoxaparin Sodium (Enoxaparin Sodium 40 Mg/0.4 Ml Syringe) 40 mg SUBCUT Q24H [facility] On Hold: 02/07/25 03:13 Last Admin: 02/06/25 22:14 Dose: 40 mg Documented By: LAFLAMNelly Famotidine (Famotidine 20 Mg Tablet) 20 mg PO DAILY [facility] Last Admin: 02/07/25 09:51 Dose: 20 mg Documented By: USLMA Gabapentin (Gabapentin 300 Mg Capsule) 900 mg PO BID@0800,1200 [facility] On Hold: 02/06/25 14:09 Last Admin: 02/06/25 13:25 Dose: Not Given Documented By: АННА Non-Admin Reason: pt lethrgic Gabapentin (Gabapentin 400 Mg Capsule) 1,200 mg PO BEDTIME [facility] On Hold: 02/06/25 14:09 Last Admin: 02/05/25 21:44 Dose: 1,200 mg Documented By: LARS Valproic Acid 250 mg/ Sodium (Chloride) 102.5 mls @ 100 mls/hr IV Q6H [facility] Last Admin: 02/07/25 15:25 Dose: 100 mls/hr Documented By: SULMA Acetaminophen (Ofirmev) 1,000 mg in 100 mls @ 400 mls/hr IV Q6H [facility] Last Admin: 02/07/25 15:25 Dose: Not Given Documented By: SULMA Non-Admin Reason: See Note Ketorolac Tromethamine (Ketorolac Tromethamine 10 Mg Tablet) 10 mg PO Q6H PRN PRN Reason: Pain, Moderate(Pain Scale 4-6) Magnesium Hydroxide (Milk Of Magnesia 30 Ml Oral.Susp) 30 ml PO DAILY PRN PRN Reason: Constipation Magnesium Oxide (Magnesium Oxide 400 Mg Tablet) 400 mg PO DAILY [facility] Last Admin: 02/07/25 09:52 Dose: 400 mg Documented By: SULMA Melatonin (Melatonin 3 Mg Tablet) 6 mg PO BEDTIME PRN PRN Reason: Insomnia Memantine (Memantine Hcl 5 Mg Tablet) 5 mg PO BID [facility] Last Admin: 02/07/25 09:52 Dose: 5 mg Documented By: SULMA Methadone HCl (Methadone Hcl 20 Mg/2 Ml Oral.Conc) 40 mg PO DAILY [facility] Last Admin: 02/07/25 09:50 Dose: 40 mg Documented By: SLUMA Co-signed By: SUZANNE Naloxone HCl (Naloxone Hcl Nasal 4 Mg [place]) 4 mg NOSTRILALT Q2M PRN PRN Reason: opioid overdose Naproxen (Naproxen 500 Mg Tablet) 500 mg PO BID [facility] On Hold: 02/06/25 20:57 Last Admin: 02/06/25 08:24 Dose: 500 mg Documented By: АННА Quetiapine Fumarate (Quetiapine Fumarate 100 Mg Tablet) 100 mg PO BEDTIME [facility] On Hold: 02/06/25 14:09 Last Admin: 02/05/25 21:45 Dose: 100 mg Documented By: LARS Senna/Docusate Sodium (Sennosides/Docusate Sodium Tablet) 2 tab PO BEDTIME PRN PRN Reason: Constipation Sodium Chloride (0.9 % Sodium Chloride Flush 3 Ml Syringe) 3 ml IVFLUSH QSHIFT [facility] Last Admin: 02/07/25 15:26 Dose: 3 ml Documented By: SULMA Vitamin D (Cholecalciferol (Vitamin D3) 25 Mcg Tablet) 50 mcg PO DAILY [facility] Last Admin: 02/07/25 09:51 Dose: 50 mcg Documented By: SULMA Labs 02/07/25 05:56 02/07/25 05:56 Labs: Laboratory Results - last 24 hr 02/06/25 02/07/25 16:49 05:56 MCV 83.9 MCH 27.5 MCHC 32.7 RDW 14.6 Plt Count 210 MPV 9.5 Absolute Nucleated RBC 0.000 Nucleated RBC % (auto) 0.0 PT 13.0 H INR 1.1 Anion Gap 14 Estim Creat Clear Calc 74.0 Estimated GFR > 60 Random Glucose 71 Lactic Acid 1.7 Calcium 9.2 D Microbiology Microbiology Results: Microbiology 02/06/25 15:27 Urine Culture - Final Urine Catheterized - Richardson Catheter Assessment and Plan (1) Adult failure to thrive: Status: Acute (2) Acute UTI: Status: Acute (3) Acute metabolic encephalopathy: Status: Acute Plan The pt is a 74-year-old male with a PMH significant for polysubstance use disorder on methadone, GERD, and mood disorder who initially presented to the ED on 01/31/2025 for weakness and question of altered mental status. Pt will be brought to the hospital floor and admitted for acute metabolic encephalopathy in setting of UTI and failure to thrive. Acute metabolic encephalopathy in setting of UTI UA+, altered from baseline No sepsis Ceftriaxone, day 2 CT of head negative Urine culture growing gram neg rods Monitor mentation Hematuria Gross hematuria with clots noted in Richardson after Lovenox Urology consulted, recommend finasteride and tamsulosin; CBI not indicated at this time Check U/S retroperitoneum Hold Lovenox Monitor H&H GERD Continue famotidine Peripheral neuropathy Hold gabapentin due to somnolence FTT CM working on STR placement PT evaluation as needed Chronic coccyx wounds Wound care recommendations from previous admission: 1. Turn and Reposition every 2 hours and as needed for patient comfort.? Use pillows or wedges to support off loading positions. 2. Off Load all bony prominences with use of pillows and heel boots if needed.? Apply Preventative foams where needed. ? 3. Monitor for incontinence and moisture control, use barrier creams when needed for prevention and treatment. 4. Provide adequate and supplemental nutrition.? 5. Order low air loss mattress. 6. When applicable maintain blood glucose levels per Providers order. Coccyx and Buttock - Off Load Pressure with Q2 hr turns and use of pillows - Routine cleansing.? Apply skin prep allow to dry.? Cover with foam dressing to aid in off loading and protection from friction. Change every 3 days and PRN. Polysubstance use disorder Continue methadone Full Code DVT Prophylaxis: Pneumatic compression due to gross hematuria with clots Continued hospitaliztion: for treatment of?acute metabolic encephalopathy in the setting of UTI and failure to thrive requiring administration of IV antibiotics and close monitoring of mentation while awaiting safe disposition. Quality Stroke Does the patient have a stroke diagnosis?: No VTE Prior VTE?: No VTE Risk Level:: Medical - moderate - high VTE Device Contraindication: Treatment Not Indicated VTE Drug Contraindication: N/A - Med Ordered
--- NOTE | 2025-02-07 18:24 | MHC.SL.SWA ---
Speech Pathologist Impression: Risk of Aspiration Due to: Dysphasia Diet Status: Recommend UPGRADE to chopped/advanced solids. Continue pills crushed/whole in puree. ALTERNATE solids with liquids. Liquid Consistency and Strategies for Safe Swallow: Liquid Intake Recommendation: Thin Liquid Intake Strategies: Solid Food Consistency: Dietary Recommendations: Grnd/Mech Altered (NDD2) Additional Modifications to Solid Foods: Oral Medication Intake: Whole with Puree Please contact the pharmacy regarding appropriate crushable or liquid drug formulations that are available whenever modified delivery is recommended. Compensatory Strategies and Precautions to be Taken for Safe Swallow: Supervision While Eating and Drinking for Safe Swallow: Total Assistance (1:1) Foods to Avoid: Tough, difficult to chew solids. Swallowing Recommended Treatments: Recommendation for Speech: Inpatient Speech Therapy Comment: Patient presents with mild to moderate oral pharyngeal dysphagia, and altered mental state/confusion increasing risk for aspiration. Recommend continue on current diet of Ground/Mechanical (NDD2) with thin liquids, pills whole in puree. Patient will require direct supervision and assistance as needed at meals. Provide liquids by single, controlled cup sip, no straws. Patient may munch at length with bites of food, cue to swallow, provide with sip of water to encourage swallow. PRESS WORKER HELPER to follow for toleration, diet adjustment as needed. MD RD notified of recommendations by secure text, RN in person. Frequency/Duration: Date Range for Service Req: Timeline to reassess: Steam Plant Records Clerk Clinican/Clinical Fellow: No Supervisory Statement: I have reviewed and agree with the student/clinical fellow's documentation: N/A Speech Language Pathologist: Gretchen Walton M.A., [employer]-PRESS WORKER HELPER
--- NOTE | 2025-02-07 22:22 | PC.NURSE ---
safe start not completed at patient did not arrive to room until 1949.
[2025-02-08 03:55] VITALS: BP 128/82; PULSE 66; RESP 18; TEMP 36.2; O2SAT 93
[2025-02-08 06:01] LABS: Hematocrit 35.1 % (42.0-52.0); Hemoglobin 11.3 g/dl (14.0-18.0); Mean Corpuscular HGB Conc 32.2 g/dl (31.0-36.0); Mean Corpuscular Hemoglobin 27.6 pg (27.0-33.0); Mean Corpuscular Volume 85.6 fL (80.0-98.0); NRBC Abs Auto 0.000 X10*3/uL (0.0-0.012); NRBC Pct Auto 0.0 /100WBC (0.0-0.2); Platelet Count 209 X10*3/uL (160-400); Red Blood Count 4.10 X10*6/uL (4.60-5.80); White Blood Count 7.6 X10*3/uL (4.8-10.8)
[2025-02-08 07:29] VITALS: BP 134/67; PULSE 69; RESP 18; TEMP 36.2; O2SAT 95
[2025-02-08 07:41] LABS: Glucose, Whole Blood 61 mg/dL (60-115)
[2025-02-08] MEDS: methADONE HCl 20 MG/2 ML ORAL.CONC 40 MG PO (08:21)
[2025-02-08] MEDS: Calcium + Vitamin D 250 MG TABLET PO ×2 (08:26→20:26)
[2025-02-08] MEDS: 0.9 % Sodium Chloride Flush 3 ML SYRINGE IVFLUSH ×3 (11:12→20:26)
--- NOTE | 2025-02-08 11:54 | MHC.SL.SWA ---
Speech Pathologist Impression: Dysphagia resulting from cognitive impairment Risk of Aspiration Due to: Poor self-awareness Limited attention Hx of dysphagia Dysphasia Diet Status: Recommend NDD2 (ground) diet with thin liquids. Continue pills crushed/whole in puree. ALTERNATE solids with liquids. Liquid Consistency and Strategies for Safe Swallow: Liquid Intake Recommendation: Thin Liquid Intake Strategies: Solid Food Consistency: Dietary Recommendations: Grnd/Mech Altered (NDD2) Additional Modifications to Solid Foods: Oral Medication Intake: Whole with Puree Please contact the pharmacy regarding appropriate crushable or liquid drug formulations that are available whenever modified delivery is recommended. Compensatory Strategies and Precautions to be Taken for Safe Swallow: Sitting Upright (90 deg) No Straw Alternate Liquids/Solids Oral Check Supervision While Eating and Drinking for Safe Swallow: Total Assistance (1:1) Foods to Avoid: Tough, difficult to chew solids. Swallowing Recommended Treatments: Compens. Strategy Educat. Recommendation for Speech: Inpatient Speech Therapy Comment: Pt seen for dysphagia treatment, RN at bedside. Pt ate eggs for breakfast, no issues reported. HOP PICKER encouraged pt to drink liquids, but d/t significant confusion and press of speech, pt unable to attend to task of taking sips of liquids. Pt eventually sipped from cup with adequate oropharyngeal coordination, though it was difficult for him to hold the cup. Trial with straw resulted in immediate cough as pt respiratory coordination with straw remains inconsistent. No changes made to diet, HOP PICKER continues to follow during inpatient stay to monitor his tolerance of least restrictive diet, adjust as indicated. Frequency/Duration: Date Range for Service Req: Timeline to reassess: Deputy Program Manager Clinican/Clinical Fellow: No Supervisory Statement: I have reviewed and agree with the student/clinical fellow's documentation: N/A Speech Language Pathologist: Rosa Daniel M.S., [facility]-HOP PICKER
[2025-02-08 13:33] VITALS: BMI 21.6
--- NOTE | 2025-02-08 15:13 | HO.PM.IMPN ---
Subjective Subjective Date of Service: 02/08/25 Interval History: Remains confused about time and situation Resting comfortably in bed No complaints No acute events overnight Review of Systems Review of Systems: Yes all other systems are reviewed and are negative Physical Exam Exam: Exam: General: AO to person and place, not to time or situation. Elderly, frail. Resp: CTA bilaterally CVS: S1, S2, RRR GI: +BS, NT, no distention : Richardson in place draining clear yellow urine Skin: Warm, dry Neuro: Cranial nerves II-XII grossly intact bilaterally. Motor grossly intact bilaterally Extremities: No edema Psych: Pleasantly confused Vital Signs: Vital Signs: Last Vital Signs Temp 97.1 F 02/08/25 07:29 Pulse 69 02/08/25 07:29 Resp 18 02/08/25 07:29 BP 134/67 02/08/25 07:29 Pulse Ox 95 02/08/25 07:29 O2 Del Method Room Air 02/08/25 07:29 BMI result Body Mass Index 21.6 Objective Data Active Medications Acetaminophen (Acetaminophen 325 Mg Tablet) 650 mg PO Q6H PRN On Hold: 02/06/25 20:58 PRN Reason: Headache/Pain, Scale 1-10 Amitriptyline HCl (Amitriptyline Hcl 10 Mg Tablet) 20 mg PO BEDTIME [facility] On Hold: 02/06/25 14:09 Last Admin: 02/05/25 21:45 Dose: 20 mg Documented By: LARS Calcium Carbonate/Cholecalciferol (Calcium + Vitamin D 250 Mg Tablet) 250 mg PO BID [facility] Last Admin: 02/08/25 08:26 Dose: 250 mg Documented By: NAYELI Ceftriaxone Sodium (Ceftriaxone Sodium 1 Gm Vial) 1 gm IVPUSH Q24H [facility] Last Admin: 02/07/25 15:58 Dose: 1 gm Documented By: SULMA Cephalexin HCl (Cephalexin 500 Mg Capsule) 500 mg PO QID [facility] On Hold: 02/06/25 21:08 Last Admin: 02/06/25 22:21 Dose: Not Given Documented By: DELANEY Non-Admin Reason: NPO Cyanocobalamin (Cyanocobalamin (Vitamin B-12) 1,000 Mcg Tablet) 1,000 mcg PO DAILY [facility] Last Admin: 02/08/25 08:28 Dose: 1,000 mcg Documented By: NAYELI Divalproex Sodium (Divalproex Sodium Er 250 Mg Tab.Er.24h) 1,250 mg PO BEDTIME [facility] On Hold: 02/06/25 20:57 Last Admin: 02/05/25 21:45 Dose: 1,250 mg Documented By: LARS Enoxaparin Sodium (Enoxaparin Sodium 40 Mg/0.4 Ml Syringe) 40 mg SUBCUT Q24H [facility] On Hold: 02/07/25 03:13 Last Admin: 02/06/25 22:14 Dose: 40 mg Documented By: LAFLAMNelly Famotidine (Famotidine 20 Mg Tablet) 20 mg PO DAILY [facility] Last Admin: 02/08/25 08:27 Dose: 20 mg Documented By: NAYELI Finasteride (Finasteride 5 Mg Tablet) 5 mg PO DAILY [facility] Last Admin: 02/08/25 08:27 Dose: 5 mg Documented By: NAYELI Gabapentin (Gabapentin 300 Mg Capsule) 900 mg PO BID@0800,1200 [facility] On Hold: 02/06/25 14:09 Last Admin: 02/06/25 13:25 Dose: Not Given Documented By: АННА Non-Admin Reason: pt lethrgic Gabapentin (Gabapentin 400 Mg Capsule) 1,200 mg PO BEDTIME [facility] On Hold: 02/06/25 14:09 Last Admin: 02/05/25 21:44 Dose: 1,200 mg Documented By: LARS Valproic Acid 250 mg/ Sodium (Chloride) 102.5 mls @ 100 mls/hr IV Q6H [facility] Last Infusion: 02/08/25 13:44 Dose: Infused Documented By: NAYELI Ketorolac Tromethamine (Ketorolac Tromethamine 10 Mg Tablet) 10 mg PO Q6H PRN PRN Reason: Pain, Moderate(Pain Scale 4-6) Magnesium Hydroxide (Milk Of Magnesia 30 Ml Oral.Susp) 30 ml PO DAILY PRN PRN Reason: Constipation Magnesium Oxide (Magnesium Oxide 400 Mg Tablet) 400 mg PO DAILY [facility] Last Admin: 02/08/25 08:27 Dose: 400 mg Documented By: NAYELI Melatonin (Melatonin 3 Mg Tablet) 6 mg PO BEDTIME PRN PRN Reason: Insomnia Memantine (Memantine Hcl 5 Mg Tablet) 5 mg PO BID [facility] Last Admin: 02/08/25 08:27 Dose: 5 mg Documented By: NAYELI Methadone HCl (Methadone Hcl 20 Mg/2 Ml Oral.Conc) 40 mg PO DAILY [facility] Last Admin: 02/08/25 08:21 Dose: 40 mg Documented By: NAYELI Co-signed By: WHIT Naloxone HCl (Naloxone Hcl Nasal 4 Mg [place]) 4 mg NOSTRILALT Q2M PRN PRN Reason: opioid overdose Naproxen (Naproxen 500 Mg Tablet) 500 mg PO BID [facility] On Hold: 02/06/25 20:57 Last Admin: 02/06/25 08:24 Dose: 500 mg Documented By: АННА Quetiapine Fumarate (Quetiapine Fumarate 100 Mg Tablet) 100 mg PO BEDTIME [facility] On Hold: 02/06/25 14:09 Last Admin: 02/05/25 21:45 Dose: 100 mg Documented By: LARS Senna/Docusate Sodium (Sennosides/Docusate Sodium Tablet) 2 tab PO BEDTIME PRN PRN Reason: Constipation Sodium Chloride (0.9 % Sodium Chloride Flush 3 Ml Syringe) 3 ml IVFLUSH QSHIFT [facility] Last Admin: 02/08/25 11:12 Dose: 3 ml Documented By: NAYELI Tamsulosin HCl (Tamsulosin Hcl 0.4 Mg Capsule) 0.4 mg PO DAILY [facility] Last Admin: 02/08/25 08:27 Dose: 0.4 mg Documented By: NAYELI Vitamin D (Cholecalciferol (Vitamin D3) 25 Mcg Tablet) 50 mcg PO DAILY [facility] Last Admin: 02/08/25 08:26 Dose: 50 mcg Documented By: NAYELI Labs 02/08/25 05:37 02/07/25 05:56 Labs: Laboratory Results - last 24 hr 02/08/25 02/08/25 05:37 07:35 MCV 85.6 MCH 27.6 MCHC 32.2 RDW 14.6 Plt Count 209 MPV 10.1 Absolute Nucleated RBC 0.000 Nucleated RBC % (auto) 0.0 POC Glucose 61 Microbiology Microbiology Results: Microbiology 02/06/25 16:37 Blood Culture - Preliminary Blood - Venous No growth after 24 hours. 02/06/25 16:49 Blood Culture - Preliminary Blood - Venous No growth after 24 hours. Assessment and Plan (1) Adult failure to thrive: Status: Acute Plan The pt is a 74-year-old male with a PMH significant for polysubstance use disorder on methadone, GERD, and mood disorder who initially presented to the ED on 01/31/2025 for weakness and question of altered mental status. Pt will be brought to the hospital floor and admitted for acute metabolic encephalopathy in setting of UTI and failure to thrive. Question of acute metabolic encephalopathy in setting of UTI UA+ but culture characteristic of urogenital contamination; appeared altered from baseline No sepsis Ceftriaxone, day 3; will treat with [address] of head negative Baseline mentation unclear, likely back to baseline Hematuria Andrew gross hematuria with clots noted in Richardson after Lovenox on 02/07 Urology consulted, recommend finasteride and tamsulosin; CBI not indicated at this time U/S retroperitoneum unremarkable Hold Lovenox H&H stable, monitor GERD Continue famotidine Peripheral neuropathy Hold gabapentin due to somnolence Diet Has mild-moderate oral pharyngeal dysphagia Diet of Ground Mechanical with Thin liquids Needs 1-1 supervision/assistance, no straws, one sip at a time, alternate liquids and solids Pills whole in puree FTT CM working on STR placement PT evaluation as needed Chronic coccyx wounds Wound care recommendations from previous admission: 1. Turn and Reposition every 2 hours and as needed for patient comfort.? Use pillows or wedges to support off loading positions. 2. Off Load all bony prominences with use of pillows and heel boots if needed.? Apply Preventative foams where needed. ? 3. Monitor for incontinence and moisture control, use barrier creams when needed for prevention and treatment. 4. Provide adequate and supplemental nutrition.? 5. Order low air loss mattress. 6. When applicable maintain blood glucose levels per Providers order. Coccyx and Buttock - Off Load Pressure with Q2 hr turns and use of pillows - Routine cleansing.? Apply skin prep allow to dry.? Cover with foam dressing to aid in off loading and protection from friction. Change every 3 days and PRN. Polysubstance use disorder Continue methadone Full Code DVT Prophylaxis: Pneumatic compression due to gross hematuria with clots Continued hospitalization: failure to thrive requiring placement to STR Quality Stroke Does the patient have a stroke diagnosis?: No VTE Prior VTE?: No VTE Risk Level:: Medical - moderate - high VTE Device Contraindication: Treatment Not Indicated VTE Drug Contraindication: N/A - Med Ordered
[2025-02-08 15:23] VITALS: BP 131/64; PULSE 82; RESP 18; TEMP 36.8; O2SAT 96
[2025-02-08 19:06] VITALS: BP 136/71; PULSE 85; RESP 18; TEMP 37; O2SAT 95
[2025-02-09 03:10] VITALS: BP 123/63; PULSE 72; RESP 18; TEMP 36.3; O2SAT 95
[2025-02-09 07:03] VITALS: BP 114/67; PULSE 78; RESP 16; TEMP 36.7; O2SAT 96
[2025-02-09 07:19] LABS: Glucose, Whole Blood 90 mg/dL (60-115)
[2025-02-09] MEDS: Calcium + Vitamin D 250 MG TABLET PO ×2 (08:56→22:08)
[2025-02-09] MEDS: methADONE HCl 20 MG/2 ML ORAL.CONC 40 MG PO (08:57)
[2025-02-09] MEDS: 0.9 % Sodium Chloride Flush 3 ML SYRINGE IVFLUSH ×3 (08:57→22:09)
--- NOTE | 2025-02-09 11:30 | PC.NURSE ---
Richardson removed at 1100, small amount of blood noticed on the tip of the catheter, patient tolerated procedure well. Education provided on the voiding trail, patient due to void by 1700, PRN orders for baldder scan and str. cath in place.
--- NOTE | 2025-02-09 13:40 | MHC.SL.SWA ---
Speech Pathologist Impression: Risk of Aspiration Due to: Dysphasia Diet Status: Continue on CHOPPED/ADVANCE (NDD2) with THIN liquids, no straw, pills whole or crushed in puree. Alternate liquids and solids (assist patient with this) Cue patient to swallow before adding more food to mouth. Liquid Consistency and Strategies for Safe Swallow: Liquid Intake Recommendation: Thin Liquid Intake Strategies: Small Sips No Straws Solid Food Consistency: Dietary Recommendations: Grnd/Mech Altered (NDD2) Additional Modifications to Solid Foods: Oral Medication Intake: Crushed with Puree Please contact the pharmacy regarding appropriate crushable or liquid drug formulations that are available whenever modified delivery is recommended. Compensatory Strategies and Precautions to be Taken for Safe Swallow: Sitting Upright (90 deg) No Straw Alternate Liquids/Solids Oral Check Supervision While Eating and Drinking for Safe Swallow: Total Assistance (1:1) Foods to Avoid: Tough, difficult to chew solids. Swallowing Recommended Treatments: Compens. Strategy Educat. Recommendation for Speech: Inpatient Speech Therapy Comment: Patient seen at lunch with sitter present in room. Patient was very pleasant and cheerful if very confused. ROTARY OPERATOR reported that she had found patient's top denture in his bed and had put in place for meal (he was without denture this morning at breakfast). Patient was producing prolonged munching pattern that appears behavioral and has been noted on multiple occasions. SEWER removed straws from drinks on tray and assisted patient with sip of liquid to help clear bolus from mouth, which with 1-2 sips was successful. Patient was independently feeding self, put consistently munching on each bite for prolonged period. SEWER demonstrated for sitter need to periodically cue and assist patient with taking sip of liquid to end behavior so that patient can continue with meal at reasonable pace. SEWER updated white board in room with recommendations and strategies. SEWER will continue to follow. Frequency/Duration: Date Range for Service Req: Timeline to reassess: Position Description Manager Clinican/Clinical Fellow: No Supervisory Statement: I have reviewed and agree with the student/clinical fellow's documentation: N/A Speech Language Pathologist: Gretchen Walton M.A., [facility]SEWER
--- NOTE | 2025-02-09 14:03 | P.PNIM_ITS ---
Subjective Subjective Date of Service: 02/09/25 Interval History: Doing well, no complaints No acute events overnight Appears at baseline mentation Review of Systems Review of Systems: Yes all other systems are reviewed and are negative Physical Exam 2 Exam: Exam: General: AO to person and place, not to time or situation. Elderly, frail. Resp: CTA bilaterally CVS: S1, S2, RRR GI: +BS, NT, no distention : Richardson in place draining clear yellow urine Skin: Warm, dry Neuro: Cranial nerves II-XII grossly intact bilaterally. Motor grossly intact bilaterally Extremities: No edema Psych: Pleasantly confused Vital Signs: Vital Signs: Last Vital Signs Temp 98.0 F 02/09/25 07:03 Pulse 78 02/09/25 07:03 Resp 16 02/09/25 07:03 BP 114/67 02/09/25 07:03 Pulse Ox 96 02/09/25 07:03 O2 Del Method Room Air 02/09/25 07:03 BMI result Body Mass Index 21.6 Objective Data Active Medications Acetaminophen (Acetaminophen 325 Mg Tablet) 650 mg PO Q6H PRN On Hold: 02/06/25 20:58 PRN Reason: Headache/Pain, Scale 1-10 Amitriptyline HCl (Amitriptyline Hcl 10 Mg Tablet) 20 mg PO BEDTIME ELISABET On Hold: 02/06/25 14:09 Last Admin: 02/05/25 21:45 Dose: 20 mg Documented By: LARS Calcium Carbonate/Cholecalciferol (Calcium + Vitamin D 250 Mg Tablet) 250 mg PO BID ELISABET Last Admin: 02/09/25 08:56 Dose: 250 mg Documented By: PARMINDER Ceftriaxone Sodium (Ceftriaxone Sodium 1 Gm Vial) 1 gm IVPUSH Q24H [facility]ISABET Stop: 02/11/25 15:59 Last Admin: 02/08/25 16:03 Dose: 1 gm Documented By: NAYELI Cephalexin HCl (Cephalexin 500 Mg Capsule) 500 mg PO QID ELISABET On Hold: 02/06/25 21:08 Last Admin: 02/06/25 22:21 Dose: Not Given Documented By: DELANEY Non-Admin Reason: NPO Cyanocobalamin (Cyanocobalamin (Vitamin B-12) 1,000 Mcg Tablet) 1,000 mcg PO DAILY ELISABET Last Admin: 02/09/25 08:56 Dose: 1,000 mcg Documented By: PARMINDER Divalproex Sodium (Divalproex Sodium Er 250 Mg Tab.Er.24h) 1,250 mg PO BEDTIME ELISABET On Hold: 02/06/25 20:57 Last Admin: 02/05/25 21:45 Dose: 1,250 mg Documented By: LARS Enoxaparin Sodium (Enoxaparin Sodium 40 Mg/0.4 Ml Syringe) 40 mg SUBCUT Q24H ELISABET On Hold: 02/07/25 03:13 Last Admin: 02/06/25 22:14 Dose: 40 mg Documented By: LAFLAMNelly Famotidine (Famotidine 20 Mg Tablet) 20 mg PO DAILY [facility] Last Admin: 02/09/25 08:56 Dose: 20 mg Documented By: PARMINDER Finasteride (Finasteride 5 Mg Tablet) 5 mg PO DAILY [facility] Last Admin: 02/09/25 08:56 Dose: 5 mg Documented By: PARMINDER Gabapentin (Gabapentin 300 Mg Capsule) 900 mg PO BID@0800,1200 [facility] On Hold: 02/06/25 14:09 Last Admin: 02/06/25 13:25 Dose: Not Given Documented By: НАНА Non-Admin Reason: pt lethrgic Gabapentin (Gabapentin 400 Mg Capsule) 1,200 mg PO BEDTIME ELISABET On Hold: 02/06/25 14:09 Last Admin: 02/05/25 21:44 Dose: 1,200 mg Documented By: LARS Valproic Acid 250 mg/ Sodium (Chloride) 102.5 mls @ 100 mls/hr IV Q6H [facility] Last Infusion: 02/09/25 12:13 Dose: Infused Documented By: PARMINDER Ketorolac Tromethamine (Ketorolac Tromethamine 10 Mg Tablet) 10 mg PO Q6H PRN PRN Reason: Pain, Moderate(Pain Scale 4-6) Magnesium Hydroxide (Milk Of Magnesia 30 Ml Oral.Susp) 30 ml PO DAILY PRN PRN Reason: Constipation Magnesium Oxide (Magnesium Oxide 400 Mg Tablet) 400 mg PO DAILY [facility] Last Admin: 02/09/25 08:56 Dose: 400 mg Documented By: PARMINDER Melatonin (Melatonin 3 Mg Tablet) 6 mg PO BEDTIME PRN PRN Reason: Insomnia Last Admin: 02/08/25 20:26 Dose: 6 mg Documented By: LUCIO Memantine (Memantine Hcl 5 Mg Tablet) 5 mg PO BID [facility] Last Admin: 02/09/25 08:56 Dose: 5 mg Documented By: PARMINDER Methadone HCl (Methadone Hcl 20 Mg/2 Ml Oral.Conc) 40 mg PO DAILY [facility] Last Admin: 02/09/25 08:57 Dose: 40 mg Documented By: PARMINDER Co-signed By: CIPRIANO Naloxone HCl (Naloxone Hcl Nasal 4 Mg [place]) 4 mg NOSTRILALT Q2M PRN PRN Reason: opioid overdose Naproxen (Naproxen 500 Mg Tablet) 500 mg PO BID [facility] On Hold: 02/06/25 20:57 Last Admin: 02/06/25 08:24 Dose: 500 mg Documented By: АННА Quetiapine Fumarate (Quetiapine Fumarate 100 Mg Tablet) 100 mg PO BEDTIME [facility] On Hold: 02/06/25 14:09 Last Admin: 02/05/25 21:45 Dose: 100 mg Documented By: LARS Senna/Docusate Sodium (Sennosides/Docusate Sodium Tablet) 2 tab PO BEDTIME PRN PRN Reason: Constipation Sodium Chloride (0.9 % Sodium Chloride Flush 3 Ml Syringe) 3 ml IVFLUSH QSHIFT [facility] Last Admin: 02/09/25 08:57 Dose: 3 ml Documented By: PARMINDER Tamsulosin HCl (Tamsulosin Hcl 0.4 Mg Capsule) 0.4 mg PO DAILY [facility] Last Admin: 02/09/25 08:56 Dose: 0.4 mg Documented By: PARMINDER Vitamin D (Cholecalciferol (Vitamin D3) 25 Mcg Tablet) 50 mcg PO DAILY [facility] Last Admin: 02/09/25 08:56 Dose: 50 mcg Documented By: PARMINDER Labs 02/08/25 05:37 02/07/25 05:56 Labs: Laboratory Results - last 24 hr 02/09/25 07:15 POC Glucose 90 Microbiology Microbiology Results: Microbiology 02/06/25 16:37 Blood Culture - Preliminary Blood - Venous No growth after 48 hours. 02/06/25 16:49 Blood Culture - Preliminary Blood - Venous No growth after 48 hours. Assessment and Plan (1) Adult failure to thrive: Status: Acute Plan The pt is a 74-year-old male with a PMH significant for polysubstance use disorder on methadone, GERD, and mood disorder who initially presented to the ED on 01/31/2025 for weakness and question of altered mental status. Pt will be brought to the hospital floor and admitted for acute metabolic encephalopathy in setting of UTI and failure to thrive. Question of acute metabolic encephalopathy in setting of UTI UA+ but culture characteristic of urogenital contamination; appeared altered from baseline according to ED No sepsis Ceftriaxone, day 4; will treat with [address] of head negative AOx2, appears back to baseline mentation; likely has undiagnosed dementia Acute urinary retention Pt with acute urinary retention, Richardson placed in the ED on 02/01 Will d/c Richardson, monitor for urinary retention Hematuria Gross hematuria with clots noted in Richardson after Lovenox on 02/07 Urology consulted, recommend finasteride and tamsulosin; CBI not indicated at this time U/S retroperitoneum unremarkable Continue to hold Lovenox H&H stable, monitor GERD Continue famotidine Peripheral neuropathy Hold gabapentin due to somnolence Diet Has mild-moderate oral pharyngeal dysphagia Diet of Ground Mechanical with Thin liquids Needs 1-1 supervision/assistance, no straws, one sip at a time, alternate liquids and solids Pills whole in puree FTT CM working on STR placement PT evaluation as needed Chronic coccyx wounds Wound care recommendations from previous admission: 1. Turn and Reposition every 2 hours and as needed for patient comfort.? Use pillows or wedges to support off loading positions. 2. Off Load all bony prominences with use of pillows and heel boots if needed.? Apply Preventative foams where needed. ? 3. Monitor for incontinence and moisture control, use barrier creams when needed for prevention and treatment. 4. Provide adequate and supplemental nutrition.? 5. Order low air loss mattress. 6. When applicable maintain blood glucose levels per Providers order. Coccyx and Buttock - Off Load Pressure with Q2 hr turns and use of pillows - Routine cleansing.? Apply skin prep allow to dry.? Cover with foam dressing to aid in off loading and protection from friction. Change every 3 days and PRN. Polysubstance use disorder Continue methadone Full Code DVT Prophylaxis: Pneumatic compression due to gross hematuria with clots Continued hospitalization: failure to thrive requiring placement to STR Quality Stroke Does the patient have a stroke diagnosis?: No VTE Prior VTE?: No VTE Risk Level:: Medical - moderate - high VTE Device Contraindication: Treatment Not Indicated VTE Drug Contraindication: N/A - Med Ordered
[2025-02-09 15:16] VITALS: BP 120/73; PULSE 90; RESP 18; TEMP 37.3; O2SAT 95
--- NOTE | 2025-02-09 15:53 | MHC.CM.PN ---
No bed offers received obtained from referrals sent. Additional referrals have been sent to [place]. [facility] Sara Doan MA was contacted about placement. She requested [facility] to the [facility]. Clinical information has been faxed to Sara. She will determine eligibility for [facility] as well as possible [facility] assistance SNF LOC. CM will continue bed search. Patient will transport via BLS once a bed is secured.
[2025-02-09 19:42] VITALS: BP 105/77; PULSE 75; RESP 18; TEMP 36.2; O2SAT 95
[2025-02-10 03:32] VITALS: BP 142/67; PULSE 80; RESP 18; TEMP 36.6; O2SAT 98
[2025-02-10 07:32] VITALS: BP 122/57; PULSE 61; RESP 16; TEMP 36.3; O2SAT 93
[2025-02-10 07:36] LABS: Glucose, Whole Blood 90 mg/dL (60-115)
[2025-02-10] MEDS: methADONE HCl 20 MG/2 ML ORAL.CONC 40 MG PO (10:58)
[2025-02-10] MEDS: Calcium + Vitamin D 250 MG TABLET PO ×2 (10:58→20:14)
[2025-02-10] MEDS: 0.9 % Sodium Chloride Flush 3 ML SYRINGE IVFLUSH ×3 (11:12→20:15)
[2025-02-10 11:19] LABS: Glucose, Whole Blood 118 mg/dL (60-115)
--- NOTE | 2025-02-10 15:35 | MHC.CM.PN ---
PER BASILIO PT IS READY FOR BED SEARCH REMAINS ACTIVE
[2025-02-10 15:37] VITALS: BP 106/56; PULSE 78; RESP 18; TEMP 36.3; O2SAT 95
--- NOTE | 2025-02-10 16:19 | MHC.SL.SWA ---
Speech Pathologist Impression: Risk of Aspiration Due to: Dysphasia Diet Status: Continue on CHOPPED/ADVANCE (NDD2) with THIN liquids, no straw, pills whole or crushed in puree. Alternate liquids and solids (assist patient with this) Cue patient to swallow before adding more food to mouth. Liquid Consistency and Strategies for Safe Swallow: Liquid Intake Recommendation: Thin Liquid Intake Strategies: Small Sips No Straws Solid Food Consistency: Dietary Recommendations: Grnd/Mech Altered (NDD2) Additional Modifications to Solid Foods: Oral Medication Intake: Crushed with Puree Please contact the pharmacy regarding appropriate crushable or liquid drug formulations that are available whenever modified delivery is recommended. Compensatory Strategies and Precautions to be Taken for Safe Swallow: Sitting Upright (90 deg) No Straw Alternate Liquids/Solids Oral Check Supervision While Eating and Drinking for Safe Swallow: Total Assistance (1:1) Foods to Avoid: Tough, difficult to chew solids. Swallowing Recommended Treatments: Compens. Strategy Educat. Recommendation for Speech: Inpatient Speech Therapy Comment: Patient seen at lunch with sitter present and assisting patient with meal. Patient was doing repetative munching as mechanical cad drafter entered, that was prolonged and appeared to have large mouthful. Sitter was cued/reminded to give patient a sip of liquid to help cue to initiate swallow, which sitter did with good result. Sitter noted that he was looking for patients swallow before presenting more food. Sitter also aware of no straws though straw was present in water glass on tray. Patient commented I was always told to chew my food! when asked about his prolonged munching behavior. Sitter was praised for his good work, Patient progressed with meal. Recommend no change to diet at this time. BUSINESS SPECIALIST continues to follow during inpatient stay to monitor his tolerance of least restrictive diet, adjust as indicated. Frequency/Duration: Date Range for Service Req: Timeline to reassess: Oven Heater Helper Clinican/Clinical Fellow: No Supervisory Statement: I have reviewed and agree with the student/clinical fellow's documentation: N/A Speech Language Pathologist: Gretchen Walton M.A., [facility]-BUSINESS SPECIALIST
[2025-02-10 19:24] VITALS: BP 138/73; PULSE 88; RESP 18; TEMP 36.2; O2SAT 93
--- NOTE | 2025-02-10 20:06 | HO.PM.IMPN ---
Subjective Subjective Date of Service: 02/10/25 Interval History: Seen and evaluated in his room, resting comfortably in bed No complaints Reports feels well, doing well Review of Systems Review of Systems: Yes all other systems are reviewed and are negative Physical Exam Exam: Exam: General: AO to person and place, not to time or situation. Elderly, frail. Resp: CTA bilaterally CVS: S1, S2, RRR GI: +BS, NT, no distention Skin: Warm, dry Neuro: Cranial nerves II-XII grossly intact bilaterally. Motor grossly intact bilaterally Extremities: No edema Psych: Pleasantly confused Vital Signs: Vital Signs: Last Vital Signs Temp 97.2 F 02/10/25 19:24 Pulse 88 02/10/25 19:24 Resp 18 02/10/25 19:24 BP 138/73 02/10/25 19:24 Pulse Ox 93 02/10/25 19:24 O2 Del Method Room Air 02/10/25 19:24 BMI result Body Mass Index 21.6 Objective Data Active Medications Acetaminophen (Acetaminophen 325 Mg Tablet) 650 mg PO Q6H PRN On Hold: 02/06/25 20:58 PRN Reason: Headache/Pain, Scale 1-10 Amitriptyline HCl (Amitriptyline Hcl 10 Mg Tablet) 20 mg PO BEDTIME ELISABET On Hold: 02/06/25 14:09 Last Admin: 02/05/25 21:45 Dose: 20 mg Documented By: LARS Calcium Carbonate/Cholecalciferol (Calcium + Vitamin D 250 Mg Tablet) 250 mg PO BID [facility]ISABET Last Admin: 02/10/25 10:58 Dose: 250 mg Documented By: EFFIE Ceftriaxone Sodium (Ceftriaxone Sodium 1 Gm Vial) 1 gm IVPUSH Q24H [facility]ISABET Stop: 02/11/25 15:59 Last Admin: 02/10/25 15:24 Dose: 1 gm Documented By: EFFIE Cephalexin HCl (Cephalexin 500 Mg Capsule) 500 mg PO QID ELISABET On Hold: 02/06/25 21:08 Last Admin: 02/06/25 22:21 Dose: Not Given Documented By: DELANEY Non-Admin Reason: NPO Cyanocobalamin (Cyanocobalamin (Vitamin B-12) 1,000 Mcg Tablet) 1,000 mcg PO DAILY [facility] Last Admin: 02/10/25 10:57 Dose: 1,000 mcg Documented By: EFFIE Divalproex Sodium (Divalproex Sodium Er 250 Mg Tab.Er.24h) 1,250 mg PO BEDTIME ELISABET On Hold: 02/06/25 20:57 Last Admin: 02/05/25 21:45 Dose: 1,250 mg Documented By: LARS Enoxaparin Sodium (Enoxaparin Sodium 40 Mg/0.4 Ml Syringe) 40 mg SUBCUT Q24H ELISABET On Hold: 02/07/25 03:13 Last Admin: 02/06/25 22:14 Dose: 40 mg Documented By: LAFLAMNelly Famotidine (Famotidine 20 Mg Tablet) 20 mg PO DAILY [facility] Last Admin: 02/10/25 10:58 Dose: 20 mg Documented By: EFFIE Finasteride (Finasteride 5 Mg Tablet) 5 mg PO DAILY [facility] Last Admin: 02/10/25 10:58 Dose: 5 mg Documented By: EFFIE Gabapentin (Gabapentin 300 Mg Capsule) 900 mg PO BID@0800,1200 [facility] On Hold: 02/06/25 14:09 Last Admin: 02/06/25 13:25 Dose: Not Given Documented By: АННА Non-Admin Reason: pt lethrgic Gabapentin (Gabapentin 400 Mg Capsule) 1,200 mg PO BEDTIME [facility] On Hold: 02/06/25 14:09 Last Admin: 02/05/25 21:44 Dose: 1,200 mg Documented By: LARS Valproic Acid 250 mg/ Sodium (Chloride) 102.5 mls @ 100 mls/hr IV Q6H [facility] Last Infusion: 02/10/25 19:21 Dose: Infused Documented By: LOLITA Ketorolac Tromethamine (Ketorolac Tromethamine 10 Mg Tablet) 10 mg PO Q6H PRN PRN Reason: Pain, Moderate(Pain Scale 4-6) Magnesium Hydroxide (Milk Of Magnesia 30 Ml Oral.Susp) 30 ml PO DAILY PRN PRN Reason: Constipation Magnesium Oxide (Magnesium Oxide 400 Mg Tablet) 400 mg PO DAILY [facility] Last Admin: 02/10/25 10:58 Dose: 400 mg Documented By: EFFIE Melatonin (Melatonin 3 Mg Tablet) 6 mg PO BEDTIME PRN PRN Reason: Insomnia Last Admin: 02/09/25 22:37 Dose: 6 mg Documented By: LOLITA Memantine (Memantine Hcl 5 Mg Tablet) 5 mg PO BID [facility] Last Admin: 02/10/25 10:57 Dose: 5 mg Documented By: EFFIE Methadone HCl (Methadone Hcl 20 Mg/2 Ml Oral.Conc) 40 mg PO DAILY [facility] Last Admin: 02/10/25 10:58 Dose: 40 mg Documented By: EFFIE Co-signed By: CIPRIANO Naloxone HCl (Naloxone Hcl Nasal 4 Mg [place]) 4 mg NOSTRILALT Q2M PRN PRN Reason: opioid overdose Naproxen (Naproxen 500 Mg Tablet) 500 mg PO BID [facility] On Hold: 02/06/25 20:57 Last Admin: 02/06/25 08:24 Dose: 500 mg Documented By: АННА Quetiapine Fumarate (Quetiapine Fumarate 100 Mg Tablet) 100 mg PO BEDTIME [facility] On Hold: 02/06/25 14:09 Last Admin: 02/05/25 21:45 Dose: 100 mg Documented By: LARS Senna/Docusate Sodium (Sennosides/Docusate Sodium Tablet) 2 tab PO BEDTIME PRN PRN Reason: Constipation Sodium Chloride (0.9 % Sodium Chloride Flush 3 Ml Syringe) 3 ml IVFLUSH QSHIFT [facility] Last Admin: 02/10/25 15:24 Dose: 3 ml Documented By: EFFIE Tamsulosin HCl (Tamsulosin Hcl 0.4 Mg Capsule) 0.4 mg PO DAILY [facility] Last Admin: 02/10/25 10:58 Dose: 0.4 mg Documented By: EFFIE Vitamin D (Cholecalciferol (Vitamin D3) 25 Mcg Tablet) 50 mcg PO DAILY [facility] Last Admin: 02/10/25 10:57 Dose: 50 mcg Documented By: EFFIE Labs 02/08/25 05:37 02/07/25 05:56 Labs: Laboratory Results - last 24 hr 02/10/25 02/10/25 07:28 11:14 POC Glucose 90 118 H Assessment and Plan (1) Adult failure to thrive: Status: Acute Plan The pt is a 74-year-old male with a PMH significant for polysubstance use disorder on methadone, GERD, and mood disorder who initially presented to the ED on 01/31/2025 for weakness and question of altered mental status. Pt will be brought to the hospital floor and admitted for acute metabolic encephalopathy in setting of UTI and failure to thrive. Question of acute metabolic encephalopathy in setting of UTI UA+ but culture characteristic of urogenital contamination; appeared altered from baseline according to ED No sepsis Ceftriaxone, day 4; will treat with [address] of head negative AOx2, appears back to baseline mentation; likely has undiagnosed dementia Acute urinary retention Pt with acute urinary retention, Richardson placed in the ED on 02/01 Richardson d/c'd, monitor for urinary retention Hematuria Gross hematuria with clots noted in Richardson after Lovenox on 02/07; none since Urology consulted, recommend finasteride and tamsulosin; CBI not indicated at this time U/S retroperitoneum unremarkable Continue to hold Lovenox H&H stable, monitor GERD Continue famotidine Peripheral neuropathy Hold gabapentin due to somnolence Diet Has mild-moderate oral pharyngeal dysphagia Diet of Ground Mechanical with Thin liquids Needs 1-1 supervision/assistance, no straws, one sip at a time, alternate liquids and solids Pills whole in puree FTT CM working on STR placement PT evaluation as needed Chronic coccyx wounds Wound care recommendations from previous admission: 1. Turn and Reposition every 2 hours and as needed for patient comfort.? Use pillows or wedges to support off loading positions. 2. Off Load all bony prominences with use of pillows and heel boots if needed.? Apply Preventative foams where needed. ? 3. Monitor for incontinence and moisture control, use barrier creams when needed for prevention and treatment. 4. Provide adequate and supplemental nutrition.? 5. Order low air loss mattress. 6. When applicable maintain blood glucose levels per Providers order. Coccyx and Buttock - Off Load Pressure with Q2 hr turns and use of pillows - Routine cleansing.? Apply skin prep allow to dry.? Cover with foam dressing to aid in off loading and protection from friction. Change every 3 days and PRN. Polysubstance use disorder Continue methadone Full Code DVT Prophylaxis: Pneumatic compression due to gross hematuria with clots Continued hospitalization: failure to thrive requiring placement to STR Quality Stroke Does the patient have a stroke diagnosis?: No VTE Prior VTE?: No VTE Risk Level:: Medical - moderate - high VTE Device Contraindication: Treatment Not Indicated VTE Drug Contraindication: N/A - Med Ordered
[2025-02-11 03:28] VITALS: BP 124/75; PULSE 67; RESP 18; TEMP 36.2; O2SAT 94
--- NOTE | 2025-02-11 07:23 | P.CDIM_ITS ---
PROVIDER RESPONSE TEXT: To clarify, the appropriate diagnosis supported by the clinical indicators: Clinically unable to determine (explain): Possibly secondary to traumatic Richardson insertion, now resolved QUERY TEXT: PHYSICIAN'S DOCUMENTATION REQUEST Date of Query: 02/08/2025 09:14 AM EDT Patient Name: Mahendra Bashir Admit Date: 02/06/2025 Dear Nicolas CERON, A review of the medical record indicates additional documentation may be needed. Please review below and update the documentation accordingly. Clinical Indicators: per Hospitalist Progress note 02/07/25: gross hematuria with clots in Richardson catheter after Lovenox per urology, no CBI Hold Lovenox, monitor H&H Based on the above, could you clarify the appropriate diagnosis, if significant, that supports the above abnormalities and additional evaluation, monitoring, and/or treatment rendered: Hemorrhagic disorder due to extrinsic circulating anti-coagulant Labs indicate a diagnosis of (please specify) Other (explain) Clinically unable to determine (explain) Thank you, Katerina Campos RN Use of terms such as suspected, likely, concern for, or probable (associated with a specific diagnosis that is being evaluated, monitored, or treated as if it exists) are acceptable and can be coded in the inpatient setting, when documented at the time of discharge. Please use your independent medical judgment in providing your response. THIS QUERY IS PART OF THE PERMANENT MEDICAL RECORD
--- NOTE | 2025-02-11 07:23 | P.CDIM_ITS ---
PROVIDER RESPONSE TEXT: To clarify, the appropriate diagnosis supported by the clinical indicators: Clinically unable to determine (explain): Unclear etiology. Possibly MASD QUERY TEXT: PHYSICIAN'S DOCUMENTATION REQUEST Date of Query: 02/08/2025 09:19 AM EDT Patient Name: Mahendra Bashir Admit Date: 02/06/2025 Dear Nicolas CERON, A review of the medical record indicates additional documentation may be needed. Please review below and update the documentation accordingly. Clinical Indicators: per Hospitalist Progress note 02/07/25: chronic coccyx wounds Based on the above, could you please provide further information regarding the type and stage of ulcer/wound: Diabetic ulcer Please specify the location and laterality of the ulcer/wound Venous stasis ulcer Please specify the location and laterality of the ulcer/wound Arterial (ischemic) ulcer Please specify the location and laterality of the ulcer/wound Pressure (decubitus) ulcer Please include the stage of the ulcer and specify the location and laterality of the ulcer/wound Traumatic wound Please specify the location and laterality of the ulcer/wound Non-healing surgical wound Please specify the location and laterality of the ulcer/wound Other (explain) Clinically unable to determine (explain) Thank you, Katerina Campos RN Use of terms such as suspected, likely, concern for, or probable (associated with a specific diagnosis that is being evaluated, monitored, or treated as if it exists) are acceptable and can be coded in the inpatient setting, when documented at the time of discharge. Please use your independent medical judgment in providing your response. THIS QUERY IS PART OF THE PERMANENT MEDICAL RECORD
[2025-02-11 07:31] LABS: Glucose, Whole Blood 79 mg/dL (60-115)
[2025-02-11 07:41] VITALS: BP 130/69; PULSE 59; RESP 18; TEMP 36.1; O2SAT 92
[2025-02-11] MEDS: methADONE HCl 20 MG/2 ML ORAL.CONC 40 MG PO (11:37)
[2025-02-11] MEDS: 0.9 % Sodium Chloride Flush 3 ML SYRINGE IVFLUSH ×3 (11:38→20:11)
[2025-02-11] MEDS: Calcium + Vitamin D 250 MG TABLET PO ×2 (11:41→20:11)
--- NOTE | 2025-02-11 14:38 | P.PNIM_ITS ---
Subjective Subjective Date of Service: 02/11/25 Interval History: Follow up for failure to thrive Doing well No complaints No acute events overnight Review of Systems Review of Systems: Yes all other systems are reviewed and are negative Physical Exam 2 Exam: Exam: General: AO to person and place, not to time or situation. Elderly, frail. Resp: CTA bilaterally CVS: S1, S2, RRR GI: +BS, NT, no distention Skin: Warm, dry; stage 2 sacral decubitus ulcer as pictured below Neuro: Cranial nerves II-XII grossly intact bilaterally. Motor grossly intact bilaterally Extremities: No edema Psych: Pleasantly confused Vital Signs: Vital Signs: Last Vital Signs Temp 97.0 F 02/11/25 07:41 Pulse 59 02/11/25 07:41 Resp 18 02/11/25 07:41 BP 130/69 02/11/25 07:41 Pulse Ox 92 02/11/25 07:41 O2 Del Method Room Air 02/11/25 07:41 BMI result Body Mass Index 21.6 Objective Data Active Medications Acetaminophen (Acetaminophen 325 Mg Tablet) 650 mg PO Q6H PRN On Hold: 02/06/25 20:58 PRN Reason: Headache/Pain, Scale 1-10 Amitriptyline HCl (Amitriptyline Hcl 10 Mg Tablet) 20 mg PO BEDTIME [facility]ISABET On Hold: 02/06/25 14:09 Last Admin: 02/05/25 21:45 Dose: 20 mg Documented By: LARS Calcium Carbonate/Cholecalciferol (Calcium + Vitamin D 250 Mg Tablet) 250 mg PO BID [facility]ISABET Last Admin: 02/11/25 11:41 Dose: 250 mg Documented By: АННА Ceftriaxone Sodium (Ceftriaxone Sodium 1 Gm Vial) 1 gm IVPUSH Q24H [facility]ABET Stop: 02/11/25 15:59 Last Admin: 02/10/25 15:24 Dose: 1 gm Documented By: EFFIE Cephalexin HCl (Cephalexin 500 Mg Capsule) 500 mg PO QID [facility]ISABET On Hold: 02/06/25 21:08 Last Admin: 02/06/25 22:21 Dose: Not Given Documented By: DELANEY Non-Admin Reason: NPO Cyanocobalamin (Cyanocobalamin (Vitamin B-12) 1,000 Mcg Tablet) 1,000 mcg PO DAILY [facility]ISABET Last Admin: 02/11/25 11:39 Dose: 1,000 mcg Documented By: АННА Divalproex Sodium (Divalproex Sodium Er 250 Mg Tab.Er.24h) 1,250 mg PO BEDTIME ELISABET On Hold: 02/06/25 20:57 Last Admin: 02/05/25 21:45 Dose: 1,250 mg Documented By: LARS Enoxaparin Sodium (Enoxaparin Sodium 40 Mg/0.4 Ml Syringe) 40 mg SUBCUT Q24H [facility]ISABET On Hold: 02/07/25 03:13 Last Admin: 02/06/25 22:14 Dose: 40 mg Documented By: LAFLAMNelly Famotidine (Famotidine 20 Mg Tablet) 20 mg PO DAILY [facility] Last Admin: 02/11/25 11:41 Dose: 20 mg Documented By: АННА Finasteride (Finasteride 5 Mg Tablet) 5 mg PO DAILY [facility] Last Admin: 02/11/25 11:41 Dose: 5 mg Documented By: АННА Gabapentin (Gabapentin 300 Mg Capsule) 900 mg PO BID@0800,1200 [facility] On Hold: 02/06/25 14:09 Last Admin: 02/06/25 13:25 Dose: Not Given Documented By: АННА Non-Admin Reason: pt lethrgic Gabapentin (Gabapentin 400 Mg Capsule) 1,200 mg PO BEDTIME [facility]ISABET On Hold: 02/06/25 14:09 Last Admin: 02/05/25 21:44 Dose: 1,200 mg Documented By: LARS Valproic Acid 250 mg/ Sodium (Chloride) 102.5 mls @ 100 mls/hr IV Q6H [facility] Last Admin: 02/11/25 12:52 Dose: 100 mls/hr Documented By: АННА Ketorolac Tromethamine (Ketorolac Tromethamine 10 Mg Tablet) 10 mg PO Q6H PRN PRN Reason: Pain, Moderate(Pain Scale 4-6) Magnesium Hydroxide (Milk Of Magnesia 30 Ml Oral.Susp) 30 ml PO DAILY PRN PRN Reason: Constipation Magnesium Oxide (Magnesium Oxide 400 Mg Tablet) 400 mg PO DAILY [facility] Last Admin: 02/11/25 11:40 Dose: 400 mg Documented By: АННА Melatonin (Melatonin 3 Mg Tablet) 6 mg PO BEDTIME PRN PRN Reason: Insomnia Last Admin: 02/10/25 20:15 Dose: 6 mg Documented By: LOLITA Memantine (Memantine Hcl 5 Mg Tablet) 5 mg PO BID [facility] Last Admin: 02/11/25 11:39 Dose: 5 mg Documented By: АННА Methadone HCl (Methadone Hcl 20 Mg/2 Ml Oral.Conc) 40 mg PO DAILY [facility] Last Admin: 02/11/25 11:37 Dose: 40 mg Documented By: АННА Co-signed By: TRE Naloxone HCl (Naloxone Hcl Nasal 4 Mg Corinne) 4 mg NOSTRILALT Q2M PRN PRN Reason: opioid overdose Naproxen (Naproxen 500 Mg Tablet) 500 mg PO BID [facility] On Hold: 02/06/25 20:57 Last Admin: 02/06/25 08:24 Dose: 500 mg Documented By: АННА Quetiapine Fumarate (Quetiapine Fumarate 100 Mg Tablet) 100 mg PO BEDTIME [facility] On Hold: 02/06/25 14:09 Last Admin: 02/05/25 21:45 Dose: 100 mg Documented By: LARS Senna/Docusate Sodium (Sennosides/Docusate Sodium Tablet) 2 tab PO BEDTIME PRN PRN Reason: Constipation Sodium Chloride (0.9 % Sodium Chloride Flush 3 Ml Syringe) 3 ml IVFLUSH QSHIFT [facility] Last Admin: 02/11/25 11:38 Dose: 3 ml Documented By: АННА Tamsulosin HCl (Tamsulosin Hcl 0.4 Mg Capsule) 0.4 mg PO DAILY [facility] Last Admin: 02/11/25 11:41 Dose: 0.4 mg Documented By: АННА Vitamin D (Cholecalciferol (Vitamin D3) 25 Mcg Tablet) 50 mcg PO DAILY [facility] Last Admin: 02/11/25 11:39 Dose: 50 mcg Documented By: АННА Labs 02/08/25 05:37 02/07/25 05:56 Labs: Laboratory Results - last 24 hr 02/11/25 07:22 POC Glucose 79 Assessment and Plan (1) Adult failure to thrive: Status: Acute Plan The pt is a 74-year-old male with a PMH significant for polysubstance use disorder on methadone, GERD, and mood disorder who initially presented to the ED on 01/31/2025 for weakness and question of altered mental status. Pt was brought to the hospital floor and admitted for acute metabolic encephalopathy in setting of UTI and failure to thrive. Question of acute metabolic encephalopathy in setting of UTI CT of head negative UA+ but culture characteristic of urogenital contamination; appeared altered from baseline according to ED No sepsis Treated with ceftriaxone x5 days AOx2, appears back to baseline mentation; likely has undiagnosed dementia Acute urinary retention Pt with acute urinary retention, Richardson placed in the ED on 02/01 Richardson d/c'd, post-void bladder scans have been negative Monitor for return of urinary retention Hematuria Gross hematuria with clots noted in Richardson after Lovenox on 02/07; none since Urology consulted, recommend finasteride and tamsulosin; CBI not indicated at this time U/S retroperitoneum unremarkable Can resume Lovenox H&H stable, monitor GERD Continue famotidine Peripheral neuropathy Hold gabapentin due to somnolence Diet Has mild-moderate oral pharyngeal dysphagia Diet of Ground Mechanical with Thin liquids Needs 1-1 supervision/assistance, no straws, one sip at a time, alternate liquids and solids Pills whole in puree FTT CM working on STR placement PT evaluation as needed Chronic coccyx wounds Stage 2 decubitus ulcers Wound care recommendations from previous admission: 1. Turn and Reposition every 2 hours and as needed for patient comfort.? Use pillows or wedges to support off loading positions. 2. Off Load all bony prominences with use of pillows and heel boots if needed.? Apply Preventative foams where needed. ? 3. Monitor for incontinence and moisture control, use barrier creams when needed for prevention and treatment. 4. Provide adequate and supplemental nutrition.? 5. Order low air loss mattress. 6. When applicable maintain blood glucose levels per Providers order. Coccyx and Buttock - Off Load Pressure with Q2 hr turns and use of pillows - Routine cleansing.? Apply skin prep allow to dry.? Cover with foam dressing to aid in off loading and protection from friction. Change every 3 days and PRN. Wound care consult Polysubstance use disorder Continue methadone Full Code DVT Prophylaxis: Pneumatic compression due to gross hematuria with clots Continued hospitalization: failure to thrive requiring placement to STR Quality Stroke Does the patient have a stroke diagnosis?: No VTE Prior VTE?: No VTE Risk Level:: Medical - moderate - high VTE Device Contraindication: Treatment Not Indicated VTE Drug Contraindication: N/A - Med Ordered
[2025-02-11 15:56] VITALS: BP 108/58; PULSE 85; RESP 20; TEMP 36.4; O2SAT 93
[2025-02-11 19:54] VITALS: BP 105/53; PULSE 81; RESP 18; TEMP 36.3; O2SAT 94
[2025-02-12 03:46] VITALS: BP 125/71; PULSE 72; RESP 18; TEMP 36.3
[2025-02-12 07:18] LABS: Glucose, Whole Blood 70 mg/dL (60-115)
[2025-02-12 07:30] VITALS: BP 123/73; PULSE 76; RESP 18; TEMP 36.3; O2SAT 97
--- NOTE | 2025-02-12 09:33 | P.PNIM_ITS ---
Subjective Subjective Date of Service: 02/12/25 Interval History: No acute events overnight No evidence of continued retention: post void bladder scan negative Pt without complaints and doing well Review of Systems Review of Systems: Yes all other systems are reviewed and are negative Physical Exam 2 Exam: Exam: General: AO to person and place, not to time or situation. Elderly, frail. Resp: CTA bilaterally CVS: S1, S2, RRR GI: +BS, NT, no distention Skin: Warm, dry; stage 2 sacral decubitus ulcer. Neuro: Cranial nerves II-XII grossly intact bilaterally. Motor grossly intact bilaterally Extremities: No edema Psych: Pleasantly confused Vital Signs: Vital Signs: Last Vital Signs Temp 97.3 F 02/12/25 07:30 Pulse 76 02/12/25 07:30 Resp 18 02/12/25 07:30 BP 123/73 02/12/25 07:30 Pulse Ox 97 02/12/25 07:30 O2 Del Method Room Air 02/11/25 19:54 BMI result Body Mass Index 21.6 Objective Data Active Medications Acetaminophen (Acetaminophen 325 Mg Tablet) 650 mg PO Q6H PRN On Hold: 02/06/25 20:58 PRN Reason: Headache/Pain, Scale 1-10 Amitriptyline HCl (Amitriptyline Hcl 10 Mg Tablet) 20 mg PO BEDTIME [facility]ISABET On Hold: 02/06/25 14:09 Last Admin: 02/05/25 21:45 Dose: 20 mg Documented By: LARS Calcium Carbonate/Cholecalciferol (Calcium + Vitamin D 250 Mg Tablet) 250 mg PO BID [facility] Last Admin: 02/11/25 20:11 Dose: 250 mg Documented By: LOLITA Cephalexin HCl (Cephalexin 500 Mg Capsule) 500 mg PO QID [facility]ABET On Hold: 02/06/25 21:08 Last Admin: 02/06/25 22:21 Dose: Not Given Documented By: DELANEY Non-Admin Reason: NPO Cyanocobalamin (Cyanocobalamin (Vitamin B-12) 1,000 Mcg Tablet) 1,000 mcg PO DAILY [facility] Last Admin: 02/11/25 11:39 Dose: 1,000 mcg Documented By: АННА Divalproex Sodium (Divalproex Sodium Er 250 Mg Tab.Er.24h) 1,250 mg PO BEDTIME [facility]ISABET On Hold: 02/06/25 20:57 Last Admin: 02/05/25 21:45 Dose: 1,250 mg Documented By: LARS Enoxaparin Sodium (Enoxaparin Sodium 40 Mg/0.4 Ml Syringe) 40 mg SUBCUT Q24H [facility] On Hold: 02/07/25 03:13 Last Admin: 02/06/25 22:14 Dose: 40 mg Documented By: VEROLAMNelly Famotidine (Famotidine 20 Mg Tablet) 20 mg PO DAILY [facility] Last Admin: 02/11/25 11:41 Dose: 20 mg Documented By: АНАН Finasteride (Finasteride 5 Mg Tablet) 5 mg PO DAILY [facility] Last Admin: 02/11/25 11:41 Dose: 5 mg Documented By: АННА Gabapentin (Gabapentin 300 Mg Capsule) 900 mg PO BID@0800,1200 [facility] On Hold: 02/06/25 14:09 Last Admin: 02/06/25 13:25 Dose: Not Given Documented By: АННА Non-Admin Reason: pt lethrgic Gabapentin (Gabapentin 400 Mg Capsule) 1,200 mg PO BEDTIME [facility] On Hold: 02/06/25 14:09 Last Admin: 02/05/25 21:44 Dose: 1,200 mg Documented By: LARS Valproic Acid 250 mg/ Sodium (Chloride) 102.5 mls @ 100 mls/hr IV Q6H [facility] Last Infusion: 02/12/25 05:45 Dose: Infused Documented By: LOLITA Ketorolac Tromethamine (Ketorolac Tromethamine 10 Mg Tablet) 10 mg PO Q6H PRN PRN Reason: Pain, Moderate(Pain Scale 4-6) Magnesium Hydroxide (Milk Of Magnesia 30 Ml Oral.Susp) 30 ml PO DAILY PRN PRN Reason: Constipation Magnesium Oxide (Magnesium Oxide 400 Mg Tablet) 400 mg PO DAILY [facility] Last Admin: 02/11/25 11:40 Dose: 400 mg Documented By: АННА Melatonin (Melatonin 3 Mg Tablet) 6 mg PO BEDTIME PRN PRN Reason: Insomnia Last Admin: 02/11/25 20:11 Dose: 6 mg Documented By: LOLITA Memantine (Memantine Hcl 5 Mg Tablet) 5 mg PO BID [facility] Last Admin: 02/11/25 20:11 Dose: 5 mg Documented By: LOLITA Methadone HCl (Methadone Hcl 20 Mg/2 Ml Oral.Conc) 40 mg PO DAILY [facility] Last Admin: 02/11/25 11:37 Dose: 40 mg Documented By: АННА Co-signed By: TRE Naloxone HCl (Naloxone Hcl Nasal 4 Mg Caroleen) 4 mg NOSTRILALT Q2M PRN PRN Reason: opioid overdose Naproxen (Naproxen 500 Mg Tablet) 500 mg PO BID [facility] On Hold: 02/06/25 20:57 Last Admin: 02/06/25 08:24 Dose: 500 mg Documented By: АННА Quetiapine Fumarate (Quetiapine Fumarate 100 Mg Tablet) 100 mg PO BEDTIME [facility] On Hold: 02/06/25 14:09 Last Admin: 02/05/25 21:45 Dose: 100 mg Documented By: LARS Senna/Docusate Sodium (Sennosides/Docusate Sodium Tablet) 2 tab PO BEDTIME PRN PRN Reason: Constipation Sodium Chloride (0.9 % Sodium Chloride Flush 3 Ml Syringe) 3 ml IVFLUSH QSHIFT [facility] Last Admin: 02/11/25 20:11 Dose: 3 ml Documented By: LOLITA Tamsulosin HCl (Tamsulosin Hcl 0.4 Mg Capsule) 0.4 mg PO DAILY [facility] Last Admin: 02/11/25 11:41 Dose: 0.4 mg Documented By: АННА Vitamin D (Cholecalciferol (Vitamin D3) 25 Mcg Tablet) 50 mcg PO DAILY [facility] Last Admin: 02/11/25 11:39 Dose: 50 mcg Documented By: АННА Labs 02/08/25 05:37 02/07/25 05:56 Labs: Laboratory Results - last 24 hr 02/12/25 07:15 POC Glucose 70 Microbiology Microbiology Results: Microbiology 02/06/25 16:37 Blood Culture - Final Blood - Venous No growth after 5 days. 02/06/25 16:49 Blood Culture - Final Blood - Venous No growth after 5 days. Assessment and Plan (1) Adult failure to thrive: Status: Acute Plan The pt is a 74-year-old male with a PMH significant for polysubstance use disorder on methadone, GERD, and mood disorder who initially presented to the ED on 01/31/2025 for weakness and question of altered mental status. Pt was brought to the hospital floor and admitted for acute metabolic encephalopathy in setting of UTI and failure to thrive. Failure to thrive Presented to ED on 01/31/2025 for generalized weakness and possible AMS Initial workup negative and was placed in PT/CM from 01/31-02/06 Currently waiting on STR placement Question of acute metabolic encephalopathy in setting of UTI CT of head negative UA+ but culture characteristic of urogenital contamination; appeared altered from baseline according to ED No sepsis Treated with ceftriaxone x5 days AOx2, appears back to baseline mentation; likely has undiagnosed dementia Acute urinary retention, resolved Pt with acute urinary retention, Richardson placed in the ED on 02/01 Richardson d/c'd, post-void bladder scans have been negative Continue finasteride and tamsulosin as below Monitor for return of urinary retention Hematuria, resolved Gross hematuria with clots noted in Richardson after Lovenox on 02/07; none since Urology consulted, recommend finasteride and tamsulosin; CBI not indicated at this time U/S retroperitoneum unremarkable Can resume Lovenox H&H stable, monitor GERD Continue famotidine Peripheral neuropathy Hold gabapentin due to somnolence Diet Has mild-moderate oral pharyngeal dysphagia Diet of Ground Mechanical with Thin liquids Needs 1-1 supervision/assistance, no straws, one sip at a time, alternate liquids and solids Pills whole in puree FTT CM working on STR placement PT evaluation as needed Chronic coccyx wounds Stage 2 decubitus ulcers Wound care recommendations from previous admission: 1. Turn and Reposition every 2 hours and as needed for patient comfort.? Use pillows or wedges to support off loading positions. 2. Off Load all bony prominences with use of pillows and heel boots if needed.? Apply Preventative foams where needed. ? 3. Monitor for incontinence and moisture control, use barrier creams when needed for prevention and treatment. 4. Provide adequate and supplemental nutrition.? 5. Order low air loss mattress. 6. When applicable maintain blood glucose levels per Providers order. Coccyx and Buttock - Off Load Pressure with Q2 hr turns and use of pillows - Routine cleansing.? Apply skin prep allow to dry.? Cover with foam dressing to aid in off loading and protection from friction. Change every 3 days and PRN. Wound care reconsulted due to worsening ulcer Polysubstance use disorder Continue methadone Full Code DVT Prophylaxis: Pneumatic compression due to gross hematuria with clots Continued hospitalization: failure to thrive requiring placement to STR Quality Stroke Does the patient have a stroke diagnosis?: No VTE Prior VTE?: No VTE Risk Level:: Medical - moderate - high VTE Device Contraindication: Treatment Not Indicated VTE Drug Contraindication: N/A - Med Ordered
[2025-02-12] MEDS: methADONE HCl 20 MG/2 ML ORAL.CONC 40 MG PO (10:19)
[2025-02-12] MEDS: Calcium + Vitamin D 250 MG TABLET PO ×2 (10:20→21:44)
[2025-02-12] MEDS: 0.9 % Sodium Chloride Flush 3 ML SYRINGE IVFLUSH ×3 (10:23→21:44)
[2025-02-12 15:04] VITALS: BP 91/56; PULSE 73; RESP 18; TEMP 36.1; O2SAT 94
[2025-02-12 19:56] VITALS: BP 115/65; PULSE 75; RESP 18; TEMP 36.5; O2SAT 94
[2025-02-13 03:30] VITALS: BP 127/67; PULSE 79; RESP 18; TEMP 36.3; O2SAT 95
[2025-02-13 07:31] LABS: Glucose, Whole Blood 94 mg/dL (60-115)
[2025-02-13 07:54] VITALS: BP 159/79; PULSE 71; RESP 16; TEMP 36.2; O2SAT 93
[2025-02-13] MEDS: Calcium + Vitamin D 250 MG TABLET PO ×2 (08:18→20:08)
[2025-02-13] MEDS: methADONE HCl 20 MG/2 ML ORAL.CONC 40 MG PO (08:19)
[2025-02-13] MEDS: 0.9 % Sodium Chloride Flush 3 ML SYRINGE IVFLUSH ×3 (08:20→20:11)
[2025-02-13 11:18] VITALS: BMI 21.6
--- NOTE | 2025-02-13 11:24 | MHC.CLN ---
NUTRITION DIET RX REGULAR, GROUND CONSISTENCY. USUAL MEAL INTAKE 75-100%. STAGE II PRESSURE INJURY TO COCCYX IDENTIFIED 02/11. ADDING ENSURE MAX BID TO PROMOTE WOUND HEALING. SUPPLEMENT PROVIDES 300 KCALS, 60 G PROTEIN. FOLLOW FOR PO INTAKE AND SKIN INTEGRITY. SEE CLINICAL NUTRITION ASSESSMENT 02/13/25.
--- NOTE | 2025-02-13 11:36 | HO.PM.IMPN ---
Subjective Subjective Date of Service: 02/13/25 Interval History: Seen and evaluated in his room where he is resting comfortably in the recliner No acute events overnight Doing well, has no acute medical complaints Waiting on placement Review of Systems Review of Systems: Yes all other systems are reviewed and are negative Physical Exam Exam: Exam: General: AO to person and place, not to time or situation. Elderly, frail. OOB and in chair Resp: CTA bilaterally CVS: S1, S2, RRR GI: +BS, NT, no distention Skin: Warm, dry; stage 2 sacral decubitus ulcer, covered in foam dressing Neuro: Cranial nerves II-XII grossly intact bilaterally. Motor grossly intact bilaterally Extremities: No edema Psych: Pleasantly confused Vital Signs: Vital Signs: Last Vital Signs Temp 97.1 F 02/13/25 07:54 Pulse 71 02/13/25 07:54 Resp 16 02/13/25 07:54 BP 159/79 H 02/13/25 07:54 Pulse Ox 93 02/13/25 07:54 O2 Del Method Room Air 02/13/25 07:54 BMI result Body Mass Index 21.6 Objective Data Active Medications Acetaminophen (Acetaminophen 325 Mg Tablet) 650 mg PO Q6H PRN On Hold: 02/06/25 20:58 PRN Reason: Headache/Pain, Scale 1-10 Amitriptyline HCl (Amitriptyline Hcl 10 Mg Tablet) 20 mg PO BEDTIME ELISABET On Hold: 02/06/25 14:09 Last Admin: 02/05/25 21:45 Dose: 20 mg Documented By: LARS Calcium Carbonate/Cholecalciferol (Calcium + Vitamin D 250 Mg Tablet) 250 mg PO BID [facility] Last Admin: 02/13/25 08:18 Dose: 250 mg Documented By: FRANKLIN Cephalexin HCl (Cephalexin 500 Mg Capsule) 500 mg PO QID ELISABET On Hold: 02/06/25 21:08 Last Admin: 02/06/25 22:21 Dose: Not Given Documented By: DELANEY Non-Admin Reason: NPO Cyanocobalamin (Cyanocobalamin (Vitamin B-12) 1,000 Mcg Tablet) 1,000 mcg PO DAILY [facility] Last Admin: 02/13/25 08:17 Dose: 1,000 mcg Documented By: FRANKLIN Divalproex Sodium (Divalproex Sodium Er 250 Mg Tab.Er.24h) 1,250 mg PO BEDTIME ELISABET On Hold: 02/06/25 20:57 Last Admin: 02/05/25 21:45 Dose: 1,250 mg Documented By: LARS Enoxaparin Sodium (Enoxaparin Sodium 40 Mg/0.4 Ml Syringe) 40 mg SUBCUT Q24H ELISABET On Hold: 02/07/25 03:13 Last Admin: 02/06/25 22:14 Dose: 40 mg Documented By: DELANEY Famotidine (Famotidine 20 Mg Tablet) 20 mg PO DAILY [facility] Last Admin: 02/13/25 08:17 Dose: 20 mg Documented By: FRANKLIN Finasteride (Finasteride 5 Mg Tablet) 5 mg PO DAILY [facility] Last Admin: 02/13/25 08:18 Dose: 5 mg Documented By: FRANKLIN Gabapentin (Gabapentin 300 Mg Capsule) 900 mg PO BID@0800,1200 [facility] On Hold: 02/06/25 14:09 Last Admin: 02/06/25 13:25 Dose: Not Given Documented By: АННА Non-Admin Reason: pt lethrgic Gabapentin (Gabapentin 400 Mg Capsule) 1,200 mg PO BEDTIME ELISABET On Hold: 02/06/25 14:09 Last Admin: 02/05/25 21:44 Dose: 1,200 mg Documented By: LARS Valproic Acid 250 mg/ Sodium (Chloride) 102.5 mls @ 100 mls/hr IV Q6H [facility] Last Admin: 02/13/25 10:59 Dose: 100 mls/hr Documented By: FRANKLIN Ketorolac Tromethamine (Ketorolac Tromethamine 10 Mg Tablet) 10 mg PO Q6H PRN PRN Reason: Pain, Moderate(Pain Scale 4-6) Magnesium Hydroxide (Milk Of Magnesia 30 Ml Oral.Susp) 30 ml PO DAILY PRN PRN Reason: Constipation Magnesium Oxide (Magnesium Oxide 400 Mg Tablet) 400 mg PO DAILY [facility] Last Admin: 02/13/25 08:18 Dose: 400 mg Documented By: FRANKLIN Melatonin (Melatonin 3 Mg Tablet) 6 mg PO BEDTIME PRN PRN Reason: Insomnia Last Admin: 02/11/25 20:11 Dose: 6 mg Documented By: LOLITA Memantine (Memantine Hcl 5 Mg Tablet) 5 mg PO BID [facility] Last Admin: 02/13/25 08:17 Dose: 5 mg Documented By: FRANKLIN Methadone HCl (Methadone Hcl 20 Mg/2 Ml Oral.Conc) 40 mg PO DAILY [facility] Last Admin: 02/13/25 08:19 Dose: 40 mg Documented By: FRANKLIN Co-signed By: ADRIANA Naloxone HCl (Naloxone Hcl Nasal 4 Mg [place]) 4 mg NOSTRILALT Q2M PRN PRN Reason: opioid overdose Naproxen (Naproxen 500 Mg Tablet) 500 mg PO BID [facility] On Hold: 02/06/25 20:57 Last Admin: 02/06/25 08:24 Dose: 500 mg Documented By: АННА Quetiapine Fumarate (Quetiapine Fumarate 100 Mg Tablet) 100 mg PO BEDTIME [facility] On Hold: 02/06/25 14:09 Last Admin: 02/05/25 21:45 Dose: 100 mg Documented By: LARS Senna/Docusate Sodium (Sennosides/Docusate Sodium Tablet) 2 tab PO BEDTIME PRN PRN Reason: Constipation Sodium Chloride (0.9 % Sodium Chloride Flush 3 Ml Syringe) 3 ml IVFLUSH QSHIFT [facility] Last Admin: 02/13/25 08:20 Dose: 3 ml Documented By: FRANKLIN Tamsulosin HCl (Tamsulosin Hcl 0.4 Mg Capsule) 0.4 mg PO DAILY [facility] Last Admin: 02/13/25 08:17 Dose: 0.4 mg Documented By: FRANKLIN Vitamin D (Cholecalciferol (Vitamin D3) 25 Mcg Tablet) 50 mcg PO DAILY [facility] Last Admin: 02/13/25 08:17 Dose: 50 mcg Documented By: FRANKLIN Labs 02/08/25 05:37 02/07/25 05:56 Labs: Laboratory Results - last 24 hr 02/13/25 07:21 POC Glucose 94 Assessment and Plan (1) Adult failure to thrive: Status: Acute Plan The pt is a 74-year-old male with a PMH significant for polysubstance use disorder on methadone, GERD, and mood disorder who initially presented to the ED on 01/31/2025 for weakness and question of altered mental status. Pt was brought to the hospital floor and admitted for acute metabolic encephalopathy in setting of UTI and failure to thrive. Failure to thrive Presented to ED on 01/31/2025 for generalized weakness and possible AMS Initial workup negative and was placed in PT/CM from 01/31-02/06 Currently waiting on STR placement Question of acute metabolic encephalopathy in setting of UTI CT of head negative UA+ but culture characteristic of urogenital contamination; appeared altered from baseline according to ED No sepsis Treated with ceftriaxone x5 days AOx2, appears back to baseline mentation; likely has undiagnosed dementia Acute urinary retention, resolved Pt with acute urinary retention, Richardson placed in the ED on 02/01 Richardson d/c'd, post-void bladder scans have been negative Continue finasteride and tamsulosin as below Monitor for return of urinary retention Hematuria, resolved Gross hematuria with clots noted in Richardson after Lovenox on 02/07; none since Urology consulted, recommend finasteride and tamsulosin; CBI not indicated at this time U/S retroperitoneum unremarkable Can resume Lovenox H&H stable, monitor Mood disorder/question of dementia Continue amitriptyline, divalproex, memantine, quetiapine Continue valproic acid 250 mg b.i.d. for now, slowly wean off GERD Continue famotidine Peripheral neuropathy Hold gabapentin due to somnolence Diet Has mild-moderate oral pharyngeal dysphagia Diet of Ground Mechanical with Thin liquids Needs 1-1 supervision/assistance, no straws, one sip at a time, alternate liquids and solids Pills whole in puree FTT CM working on STR placement PT evaluation as needed Chronic coccyx wounds Stage 2 decubitus ulcers Wound care recommendations from previous admission: 1. Turn and Reposition every 2 hours and as needed for patient comfort.? Use pillows or wedges to support off loading positions. 2. Off Load all bony prominences with use of pillows and heel boots if needed.? Apply Preventative foams where needed. ? 3. Monitor for incontinence and moisture control, use barrier creams when needed for prevention and treatment. 4. Provide adequate and supplemental nutrition.? 5. Order low air loss mattress. 6. When applicable maintain blood glucose levels per Providers order. Coccyx and Buttock - Off Load Pressure with Q2 hr turns and use of pillows - Routine cleansing.? Apply skin prep allow to dry.? Cover with foam dressing to aid in off loading and protection from friction. Change every 3 days and PRN. Wound care reconsulted due to worsening ulcer Polysubstance use disorder Continue methadone Full Code DVT Prophylaxis: Pneumatic compression due to gross hematuria with clots Continued hospitalization: failure to thrive requiring placement to STR Quality Stroke Does the patient have a stroke diagnosis?: No VTE Prior VTE?: No VTE Risk Level:: Medical - moderate - high VTE Device Contraindication: Treatment Not Indicated VTE Drug Contraindication: N/A - Med Ordered
--- NOTE | 2025-02-13 14:35 | MHC.SL.SWA ---
Speech Pathologist Impression: mild oral pharyngeal dysphagia, and altered mental state/confusion increasing risk for aspiration. Orofacial dyskinesia ongoing; however, oral prep phase of swallow WFL for shredded, pureed and thin consistencies. Risk of Aspiration Due to: Mental status Generalized weakness Dysphasia Diet Status: Continue on CHOPPED/ADVANCE (NDD2) with THIN liquids, no straw, pills whole or crushed in puree. Alternate liquids and solids (assist patient with this) Cue patient to swallow before adding more food to mouth. Liquid Consistency and Strategies for Safe Swallow: Liquid Intake Recommendation: Thin Liquid Intake Strategies: Small Sips No Straws Solid Food Consistency: Dietary Recommendations: Grnd/Mech Altered (NDD2) Additional Modifications to Solid Foods: Oral Medication Intake: Crushed with Puree Please contact the pharmacy regarding appropriate crushable or liquid drug formulations that are available whenever modified delivery is recommended. Compensatory Strategies and Precautions to be Taken for Safe Swallow: Sitting Upright (90 deg) No Straw Alternate Liquids/Solids Oral Check Supervision While Eating and Drinking for Safe Swallow: Total Assistance (1:1) Foods to Avoid: Tough, difficult to chew solids. Swallowing Recommended Treatments: Compens. Strategy Educat. Recommendation for Speech: Inpatient Speech Therapy Comment: Pt eating lunch when POT PUNCHER arrived, RN assisting. Pt is tolerating NDD2 diet with thin liquids without overt s/s of aspiration. Orofacial dyskinesia persists, but does not interfere with oral prep phase of shredded, pureed and thin liquid consistencies. Pt needs maximum encouragement to take bites of food. Pt holds cup of liquid to periodically sip. Oral supplement ordered. Pt in agreement that he is doing much better, and states he has a good appetite. Pt intake remains reduced. POT PUNCHER to follow-up as indicated. Frequency/Duration: Date Range for Service Req: Timeline to reassess: Equipment Operator Warehouse Clinican/Clinical Fellow: No Supervisory Statement: I have reviewed and agree with the student/clinical fellow's documentation: N/A Speech Language Pathologist: Gretchen Walton M.A., [facility]
[2025-02-13 15:31] VITALS: BP 111/60; PULSE 75; RESP 18; TEMP 36; O2SAT 92
--- NOTE | 2025-02-13 15:39 | HO.WOUND ---
Wound Consult: Initial 74yr old?male admitted to [facility] [place] on 02/06/25 - See progress notes and H&P for detailed history.? Wound consult placed for Sacral wound.? Patient agreeable to assessment and photo documentation.? 12/21/24 At time of prior admission - MASD Coccyx Etiology: ?MASD -IAD (Moisture Associated Skin Damage - Incontinence Associated Dermatitis) Wound Bed: mirrored wound bed within gluteal crease dark moist lifting epidermal layer with red moist tissue revealed Drainage / Odor: None noted Edges: ? Mirrored and attached Maureen wound: ? No Induration, Fluctuance or Warmth noted Pain: denies Goals of Treatment: Off Load Pressure and Triad Recommendations: 1. Turn and Reposition every 2 hours and as needed for patient comfort.? Use pillows or wedges to support off loading positions. 2. Off Load all bony prominences with use of pillows and heel boots if needed.? Apply Preventative foams where needed. ? 3. Monitor for incontinence and moisture control, use barrier creams when needed for prevention and treatment. 4. Provide adequate and supplemental nutrition.? 5. Order low air loss mattress. 6. When applicable maintain blood glucose levels per Providers order. 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 Coccyx and Buttock - Off Load Pressure with Q2 hr turns and use of pillows - Routine cleansing.?Apply thin layer of Triad to wound bed. Do not remove all of paste between applications as this may cause further skin damage.? Cover with foam dressing to aid in off loading and protection from friction. Change Daily and PRN. Re-consult wound care Nurse for wound deterioration or wound changes.
--- NOTE | 2025-02-13 16:06 | MHC.CM.PN ---
Addendum entered by Libia Bernstein 02/14/25 14:10: REP FROM THE [place] CAME IN TO SEE PT AND SPEAK TO CM SHE REPORTS PT HAD A RN EMPLOYEE HEALTH, MOW AND NURSE THROUGH THE [place] WHILE AT HOME HE HAS A [place] NURSE, ROSSI ADKINS [phone] AND A [facility] ZULY TATE [phone] X [phone] SHE SAYS THE PT IS NOT 70% CONNECTED SO IS NOT ELIGIBLE FOR SNF COVERAGE, BUT THEY ARE HOPING TO BE ABLE TO INCREASE HIS HELP AT HOME Original Note: PT STILL AWAITING SNF PLACEMENT, NO BED OFFERS AT THIS TIME. BARRIERS INCLUDE [employer] AND [employer] INSURANCE REFERRALS EXPANDED
[2025-02-13 19:18] VITALS: BP 141/81; PULSE 86; RESP 16; TEMP 36.7; O2SAT 94
[2025-02-14 03:17] VITALS: BP 135/88; PULSE 82; RESP 17; TEMP 36.7; O2SAT 96
[2025-02-14 07:43] VITALS: BP 141/81; PULSE 75; RESP 18; TEMP 36.3; O2SAT 95
[2025-02-14 07:54] LABS: Glucose, Whole Blood 84 mg/dL (60-115)
[2025-02-14] MEDS: methADONE HCl 20 MG/2 ML ORAL.CONC 40 MG PO (07:55)
[2025-02-14] MEDS: Calcium + Vitamin D 250 MG TABLET PO ×2 (07:55→20:01)
[2025-02-14] MEDS: 0.9 % Sodium Chloride Flush 3 ML SYRINGE IVFLUSH ×3 (08:03→23:47)
[2025-02-14 15:26] VITALS: BP 102/70
[2025-02-14 15:38] VITALS: PULSE 95; RESP 19; TEMP 36.2; O2SAT 95
--- NOTE | 2025-02-14 15:49 | P.PNIM_ITS ---
Subjective Subjective Date of Service: 02/14/25 Interval History: No acute issues overnight. Resting comfortably Review of Systems Denies chest pain Denies nausea vomiting diarrhea Denies shortness of breath Denies fever chills Physical Exam 2 Vital Signs: Vital Signs: Last Vital Signs Temp 97.1 F 02/14/25 15:38 Pulse 95 02/14/25 15:38 Resp 19 02/14/25 15:38 BP 102/70 02/14/25 15:26 Pulse Ox 95 02/14/25 15:38 O2 Del Method Room Air 02/14/25 15:38 BMI result Body Mass Index 21.6 Const: Other: Awake alert no acute distress Resp: Other: Clear to auscultation bilaterally no rales rhonchi or wheezes Cardio: Other: No S4; positive S1-S2 significant: No S3 murmurs rubs or gallops GI: Other: Soft nontender nondistended normoactive bowel sounds Extrem: Other: No edema bilateral Objective Data Active Medications Acetaminophen (Acetaminophen 325 Mg Tablet) 650 mg PO Q6H PRN On Hold: 02/06/25 20:58 PRN Reason: Headache/Pain, Scale 1-10 Amitriptyline HCl (Amitriptyline Hcl 10 Mg Tablet) 20 mg PO BEDTIME ELISABET On Hold: 02/06/25 14:09 Last Admin: 02/05/25 21:45 Dose: 20 mg Documented By: LARS Calcium Carbonate/Cholecalciferol (Calcium + Vitamin D 250 Mg Tablet) 250 mg PO BID [facility] Last Admin: 02/14/25 07:55 Dose: 250 mg Documented By: FRANKLIN Cephalexin HCl (Cephalexin 500 Mg Capsule) 500 mg PO QID ELISABET On Hold: 02/06/25 21:08 Last Admin: 02/06/25 22:21 Dose: Not Given Documented By: DELANEY Non-Admin Reason: NPO Cyanocobalamin (Cyanocobalamin (Vitamin B-12) 1,000 Mcg Tablet) 1,000 mcg PO DAILY [facility] Last Admin: 02/14/25 07:54 Dose: 1,000 mcg Documented By: FRANKLIN Divalproex Sodium (Divalproex Sodium Er 250 Mg Tab.Er.24h) 1,250 mg PO BEDTIME ELISABET On Hold: 02/06/25 20:57 Last Admin: 02/05/25 21:45 Dose: 1,250 mg Documented By: LARS Enoxaparin Sodium (Enoxaparin Sodium 40 Mg/0.4 Ml Syringe) 40 mg SUBCUT Q24H [facility] On Hold: 02/07/25 03:13 Last Admin: 02/06/25 22:14 Dose: 40 mg Documented By: LAFLAMNelly Famotidine (Famotidine 20 Mg Tablet) 20 mg PO DAILY [facility] Last Admin: 02/14/25 07:54 Dose: 20 mg Documented By: FRANKLIN Finasteride (Finasteride 5 Mg Tablet) 5 mg PO DAILY [facility] Last Admin: 02/14/25 07:54 Dose: 5 mg Documented By: FRANKLIN Gabapentin (Gabapentin 300 Mg Capsule) 900 mg PO BID@0800,1200 [facility] On Hold: 02/06/25 14:09 Last Admin: 02/06/25 13:25 Dose: Not Given Documented By: АННА Non-Admin Reason: pt lethrgic Gabapentin (Gabapentin 400 Mg Capsule) 1,200 mg PO BEDTIME [facility] On Hold: 02/06/25 14:09 Last Admin: 02/05/25 21:44 Dose: 1,200 mg Documented By: LARS Ketorolac Tromethamine (Ketorolac Tromethamine 10 Mg Tablet) 10 mg PO Q6H PRN PRN Reason: Pain, Moderate(Pain Scale 4-6) Magnesium Hydroxide (Milk Of Magnesia 30 Ml Oral.Susp) 30 ml PO DAILY PRN PRN Reason: Constipation Magnesium Oxide (Magnesium Oxide 400 Mg Tablet) 400 mg PO DAILY [facility] Last Admin: 02/14/25 07:54 Dose: 400 mg Documented By: FRANKLIN Melatonin (Melatonin 3 Mg Tablet) 6 mg PO BEDTIME PRN PRN Reason: Insomnia Last Admin: 02/11/25 20:11 Dose: 6 mg Documented By: LOLITA Memantine (Memantine Hcl 5 Mg Tablet) 5 mg PO BID [facility] Last Admin: 02/14/25 07:54 Dose: 5 mg Documented By: FRANKLIN Methadone HCl (Methadone Hcl 20 Mg/2 Ml Oral.Conc) 40 mg PO DAILY [facility] Last Admin: 02/14/25 07:55 Dose: 40 mg Documented By: FRANKLIN Co-signed By: KAREN Naloxone HCl (Naloxone Hcl Nasal 4 Mg [place]) 4 mg NOSTRILALT Q2M PRN PRN Reason: opioid overdose Naproxen (Naproxen 500 Mg Tablet) 500 mg PO BID [facility] On Hold: 02/06/25 20:57 Last Admin: 02/06/25 08:24 Dose: 500 mg Documented By: АННА Quetiapine Fumarate (Quetiapine Fumarate 100 Mg Tablet) 100 mg PO BEDTIME [facility] On Hold: 02/06/25 14:09 Last Admin: 02/05/25 21:45 Dose: 100 mg Documented By: LARS Senna/Docusate Sodium (Sennosides/Docusate Sodium Tablet) 2 tab PO BEDTIME PRN PRN Reason: Constipation Sodium Chloride (0.9 % Sodium Chloride Flush 3 Ml Syringe) 3 ml IVFLUSH QSHIFT [facility] Last Admin: 02/14/25 08:03 Dose: 3 ml Documented By: FRANKLIN Tamsulosin HCl (Tamsulosin Hcl 0.4 Mg Capsule) 0.4 mg PO DAILY [facility] Last Admin: 02/14/25 07:55 Dose: 0.4 mg Documented By: FRANKLIN Valproic Acid (Valproic Acid 250 Mg Capsule) 250 mg PO BID [facility] Last Admin: 02/14/25 07:54 Dose: 250 mg Documented By: FRANKLIN Vitamin D (Cholecalciferol (Vitamin D3) 25 Mcg Tablet) 50 mcg PO DAILY [facility] Last Admin: 02/14/25 07:54 Dose: 50 mcg Documented By: FRANKLIN Labs 02/08/25 05:37 02/07/25 05:56 Labs: Laboratory Results - last 24 hr 02/14/25 07:49 POC Glucose 84 Assessment and Plan (1) Adult failure to thrive: Status: Acute Plan The pt is a 74-year-old male with a PMH significant for polysubstance use disorder on methadone, GERD, and mood disorder who initially presented to the ED on 01/31/2025 for weakness and question of altered mental status. Pt was brought to the hospital floor and admitted for acute metabolic encephalopathy in setting of UTI and failure to thrive. 1.Failure to thrive -Presented to ED on 01/31/2025 for generalized weakness and possible AMS -Initial workup negative and was placed in PT/CM from 01/31-02/06 -Currently waiting on STR placement 2.Mood disorder/question of dementia -stable and well compensated -amitriptyline, divalproex, memantine, quetiapine -continue valproic acid 250 mg b.i.d. for now, slowly wean off Polysubstance use disorder Continue methadone Full Code DVT Prophylaxis: Pneumatic compression due to gross hematuria with clots Continued hospitalization: failure to thrive requiring placement to STR Quality Stroke Does the patient have a stroke diagnosis?: No VTE Prior VTE?: No VTE Risk Level:: Medical - moderate - high VTE Device Contraindication: Treatment Not Indicated VTE Drug Contraindication: N/A - Med Ordered
[2025-02-14] MEDS: Milk of Magnesia 30 ML ORAL.SUSP PO (16:27)
--- NOTE | 2025-02-14 17:52 | MHC.SLORD ---
Speech Language Pathology Order Status: Per RN/MATTRESS STRIPPER patient continues to do well with current diet with no difficulties. Patient is awaiting placment in LTC, is medically stable. Current diet is considered least restrictive for patient. STRUCTURER will conitnue to check on patient's status, observe for toleration 1-2X weekly while waiting placement.
[2025-02-14 20:00] VITALS: BP 104/68; PULSE 70; RESP 20; TEMP 36.4; O2SAT 95
[2025-02-15 03:26] VITALS: BP 103/69; PULSE 79; RESP 16; TEMP 36; O2SAT 97
[2025-02-15 07:47] VITALS: BP 123/76; PULSE 70; RESP 18; TEMP 36.3; O2SAT 100
[2025-02-15 07:54] LABS: Glucose, Whole Blood 86 mg/dL (60-115)
[2025-02-15] MEDS: Calcium + Vitamin D 250 MG TABLET PO ×2 (08:02→20:29)
[2025-02-15] MEDS: 0.9 % Sodium Chloride Flush 3 ML SYRINGE IVFLUSH ×3 (08:03→20:45)
[2025-02-15] MEDS: methADONE HCl 20 MG/2 ML ORAL.CONC 40 MG PO (08:03)
--- NOTE | 2025-02-15 13:54 | MHC.CLN ---
F/U DIET RX REGULAR, GROUND CONSISTENCY. USUAL MEAL INTAKE 25-100%. SKIN WITH MASD-IAD TO COCCYX PER WOUND RN. NOT PRESSURE INJURY. CONTINUE ENSURE MAX BID TO PROMOTE NUTRITIONAL INTAKE. SUPPLEMENT PROVIDES 300 KCALS, 60 G PROTEIN. FOLLOW FOR PO INTAKE.
--- NOTE | 2025-02-15 14:20 | MHC.SLORD ---
Speech Language Pathology Order Status: Pt seen x2, politely refused PO. RN consulted, pt PO tolerance remains stable. Pt endorsed satisfaction with current diet, stating 'I am doing good with everything!'. 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
[2025-02-15] MEDS: Milk of Magnesia 30 ML ORAL.SUSP PO (14:58)
--- NOTE | 2025-02-15 15:07 | HO.WOUND ---
Wound Consult: Follow up 74yr old?male admitted [place] [facility] [place] - See progress notes and H&P for detailed history.? Wound consult follow up for Sacral wound.? Patient agreeable to assessment and photo documentation.? No new topical recommendations improved wound bed continue with topical triad and foam dressing. SHIRA continued in use along with waffle cushion when up to chair. 12/21/24 At time of prior admission - MASD 02/13/25 02/15/25 02/15/25 Coccyx Etiology: ?MASD -IAD (Moisture Associated Skin Damage - Incontinence Associated Dermatitis) Wound Bed: mirrored wound bed within gluteal crease red clean moist tissue revealed Drainage / Odor: no odor scant serous sanguineous Edges: ? Mirrored and attached Maureen wound: ? No Induration, Fluctuance or Warmth noted Pain: pain reported when cleansed Goals of Treatment: Off Load Pressure and Triad Recommendations: 1. Turn and Reposition every 2 hours and as needed for patient comfort.? Use pillows or wedges to support off loading positions. 2. Off Load all bony prominences with use of pillows and heel boots if needed.? Apply Preventative foams where needed. ? 3. Monitor for incontinence and moisture control, use barrier creams when needed for prevention and treatment. 4. Provide adequate and supplemental nutrition.? 5. Order low air loss mattress. 6. When applicable maintain blood glucose levels per Providers order. Forehead - monitor for resolution - may leave DIVINE HEALER. Coccyx and Buttock - Off Load Pressure with Q2 hr turns and use of pillows - Routine cleansing.?Apply thin layer of Triad to wound bed. Do not remove all of paste between applications as this may cause further skin damage.? Cover with foam dressing to aid in off loading and protection from friction. Change Daily and PRN. Re-consult wound care Nurse for wound deterioration or wound changes.
--- NOTE | 2025-02-15 15:08 | P.PNIM_ITS ---
Subjective Subjective Date of Service: 02/15/25 Interval History: No acute issues overnight Review of Systems Denies chest pain Denies nausea vomiting diarrhea Denies shortness of breath Denies fever chills Physical Exam 2 Vital Signs: Vital Signs: Last Vital Signs Temp 97.3 F 02/15/25 07:47 Pulse 70 02/15/25 07:47 Resp 18 02/15/25 07:47 BP 123/76 02/15/25 07:47 Pulse Ox 100 02/15/25 07:47 O2 Del Method Room Air 02/15/25 07:47 BMI result Body Mass Index 21.6 Const: Other: Awake alert no acute distress Resp: Other: Clear to auscultation bilaterally no rales rhonchi or wheezes Cardio: Other: No S4; positive S1-S2 significant: No S3 murmurs rubs or gallops GI: Other: Soft nontender nondistended normoactive bowel sounds Extrem: Other: No edema bilateral Objective Data Active Medications Acetaminophen (Acetaminophen 325 Mg Tablet) 650 mg PO Q6H PRN On Hold: 02/06/25 20:58 PRN Reason: Headache/Pain, Scale 1-10 Amitriptyline HCl (Amitriptyline Hcl 10 Mg Tablet) 20 mg PO BEDTIME [facility] On Hold: 02/06/25 14:09 Last Admin: 02/05/25 21:45 Dose: 20 mg Documented By: LARS Calcium Carbonate/Cholecalciferol (Calcium + Vitamin D 250 Mg Tablet) 250 mg PO BID [facility] Last Admin: 02/15/25 08:02 Dose: 250 mg Documented By: NAYELI Cephalexin HCl (Cephalexin 500 Mg Capsule) 500 mg PO QID [facility] On Hold: 02/06/25 21:08 Last Admin: 02/06/25 22:21 Dose: Not Given Documented By: DELANEY Non-Admin Reason: NPO Cyanocobalamin (Cyanocobalamin (Vitamin B-12) 1,000 Mcg Tablet) 1,000 mcg PO DAILY [facility] Last Admin: 02/15/25 08:02 Dose: 1,000 mcg Documented By: NAYELI Divalproex Sodium (Divalproex Sodium Er 250 Mg Tab.Er.24h) 1,250 mg PO BEDTIME [facility] On Hold: 02/06/25 20:57 Last Admin: 02/05/25 21:45 Dose: 1,250 mg Documented By: LARS Enoxaparin Sodium (Enoxaparin Sodium 40 Mg/0.4 Ml Syringe) 40 mg SUBCUT Q24H [facility] On Hold: 02/07/25 03:13 Last Admin: 02/06/25 22:14 Dose: 40 mg Documented By: VEROLAMNelly Famotidine (Famotidine 20 Mg Tablet) 20 mg PO DAILY [facility] Last Admin: 02/15/25 08:02 Dose: 20 mg Documented By: NAYELI Finasteride (Finasteride 5 Mg Tablet) 5 mg PO DAILY [facility] Last Admin: 02/15/25 08:02 Dose: 5 mg Documented By: NAYELI Gabapentin (Gabapentin 300 Mg Capsule) 900 mg PO BID@0800,1200 [facility] On Hold: 02/06/25 14:09 Last Admin: 02/06/25 13:25 Dose: Not Given Documented By: АННА Non-Admin Reason: pt lethrgic Gabapentin (Gabapentin 400 Mg Capsule) 1,200 mg PO BEDTIME [facility] On Hold: 02/06/25 14:09 Last Admin: 02/05/25 21:44 Dose: 1,200 mg Documented By: LARS Ketorolac Tromethamine (Ketorolac Tromethamine 10 Mg Tablet) 10 mg PO Q6H PRN PRN Reason: Pain, Moderate(Pain Scale 4-6) Magnesium Hydroxide (Milk Of Magnesia 30 Ml Oral.Susp) 30 ml PO DAILY PRN PRN Reason: Constipation Last Admin: 02/15/25 14:58 Dose: 30 ml Documented By: NAYELI Magnesium Oxide (Magnesium Oxide 400 Mg Tablet) 400 mg PO DAILY [facility] Last Admin: 02/15/25 08:02 Dose: 400 mg Documented By: NAYELI Melatonin (Melatonin 3 Mg Tablet) 6 mg PO BEDTIME PRN PRN Reason: Insomnia Last Admin: 02/11/25 20:11 Dose: 6 mg Documented By: LOLITA Memantine (Memantine Hcl 5 Mg Tablet) 5 mg PO BID [facility] Last Admin: 02/15/25 08:02 Dose: 5 mg Documented By: NAYELI Methadone HCl (Methadone Hcl 20 Mg/2 Ml Oral.Conc) 40 mg PO DAILY [facility] Last Admin: 02/15/25 08:03 Dose: 40 mg Documented By: NAYELI Co-signed By: FAYE Naloxone HCl (Naloxone Hcl Nasal 4 Mg [place]) 4 mg NOSTRILALT Q2M PRN PRN Reason: opioid overdose Naproxen (Naproxen 500 Mg Tablet) 500 mg PO BID [facility] On Hold: 02/06/25 20:57 Last Admin: 02/06/25 08:24 Dose: 500 mg Documented By: АННА Quetiapine Fumarate (Quetiapine Fumarate 100 Mg Tablet) 100 mg PO BEDTIME [facility] On Hold: 02/06/25 14:09 Last Admin: 02/05/25 21:45 Dose: 100 mg Documented By: LARS Senna/Docusate Sodium (Sennosides/Docusate Sodium Tablet) 2 tab PO BEDTIME PRN PRN Reason: Constipation Sodium Chloride (0.9 % Sodium Chloride Flush 3 Ml Syringe) 3 ml IVFLUSH QSHIFT [facility] Last Admin: 02/15/25 08:03 Dose: 3 ml Documented By: NAYELI Tamsulosin HCl (Tamsulosin Hcl 0.4 Mg Capsule) 0.4 mg PO DAILY [facility] Last Admin: 02/15/25 08:02 Dose: 0.4 mg Documented By: NAYELI Valproic Acid (Valproic Acid 250 Mg Capsule) 250 mg PO BID [facility] Last Admin: 02/15/25 08:02 Dose: 250 mg Documented By: NAYELI Vitamin D (Cholecalciferol (Vitamin D3) 25 Mcg Tablet) 50 mcg PO DAILY [facility] Last Admin: 02/15/25 08:02 Dose: 50 mcg Documented By: NAYELI Labs 02/08/25 05:37 02/07/25 05:56 Labs: Laboratory Results - last 24 hr 02/15/25 07:49 POC Glucose 86 Assessment and Plan (1) Adult failure to thrive: Status: Acute Plan The pt is a 74-year-old male with a PMH significant for polysubstance use disorder on methadone, GERD, and mood disorder who initially presented to the ED on 01/31/2025 for weakness and question of altered mental status. Pt was brought to the hospital floor and admitted for acute metabolic encephalopathy in setting of UTI and failure to thrive. 1.Failure to thrive -Presented to ED on 01/31/2025 for generalized weakness and possible AMS -Initial workup negative and was placed in PT/CM from 01/31-02/06 -Currently waiting on STR placement 2.Mood disorder/question of dementia -stable and well compensated -amitriptyline, divalproex, memantine, quetiapine -continue valproic acid 250 mg b.i.d. for now, slowly wean off Polysubstance use disorder Continue methadone Full Code DVT Prophylaxis: Pneumatic compression due to gross hematuria with clots Continued hospitalization: failure to thrive requiring placement to STR Quality Stroke Does the patient have a stroke diagnosis?: No VTE Prior VTE?: No VTE Risk Level:: Medical - moderate - high VTE Device Contraindication: Treatment Not Indicated VTE Drug Contraindication: N/A - Med Ordered
--- NOTE | 2025-02-15 15:39 | HO.ADDICT_ITS ---
History of Present Illness Date of Service: 02/15/2025 Chief Complaint: Encephalopathy, UTI, FTT Reason for Consult: ?methadone taper Sources of Information: patient interviewed and chart reviewed HPI Narrative: Patient is a 74 year old male, who speaks both Montserratian and Hungarian, however majority of interview conducted in Montserratian as patient stated this was most comfortable for him. Socrates is currently medically admitted with failure to thrive and is awaiting placement at SNF. Consult requested to evaluate if methadone was appropriate to taper. Patient seen in room 383. He is awake, alert, very pleasant and engaged in interview. Not the best historian as he could not recall where he revived his methadone from or what his dose was. Chart review shows that patients last dose was on 01/31/25 40mg at [facility] in [place]. He does state that methadone is helpful to him, when asked how he identified that it helps with pain and keeps his from using the bad stuff . Unclear when his last opiate use was, but UDS was negative for all substances (except methadone) at time of admission. He initially denied any opiate use, then reminded of overdoses that occurred over the summer, which he acknowledged and said, yes, I almost dies . He appears comfortable, no concern for sedation at time of interview. Chart review shows that patient had 2 overdoses in November 2024--both requiring narcan. One was reported as a suicide attempt and resulted in psychiatric admission The second requiring ICU and prolonged medical admission Past Psychiatric History: The patient has several psychiatric admissions, he was diagnosed with bipolar disorder in his 40s, he has at least 6 prior psychiatric admissions last admission at [facility] in early 2024. Inpt on M3 10/2022 for depression and intentional Od on heroin while in public transportation. [facility] Torre [phone] h/o numerous SAs. Medical Evaluation Reviewed: Yes Review of Systems Constitutional: Reports as per HPI (c/o discomfort on his bottom ) Diagnostics Vital Signs (24Hr): Vital Signs - 24 hr 02/14/25 20:00 02/15/25 03:26 02/15/25 07:47 Temperature 97.5 F 96.8 F 97.3 F Pulse Rate 70 79 70 Respiratory Rate 20 16 18 Blood Pressure 104/68 103/69 123/76 Pulse Oximetry 95 97 100 Oxygen Delivery Method Room Air Room Air Room Air BMI result Body Mass Index 21.6 Labs 02/08/25 05:37 02/07/25 05:56 Labs: Laboratory Results - last 48 hr 02/14/25 02/15/25 07:49 07:49 POC Glucose 84 86 Imaging Radiology Impressions: ITS Impressions Head CT 01/31/25 12:19 IMPRESSION: Mildly motion degraded exam. No acute intracranial pathology. Electronically signed by: Ari Soliman MD 01/31/2025 01:53 PM EDT RP Chest X-Ray 01/31/25 13:10 IMPRESSION: Pulmonary vascular congestion and borderline cardiac size Electronically signed by: Romain Tran MD 01/31/2025 01:27 PM EDT RP Chest X-Ray 02/06/25 14:46 IMPRESSION: Chronic interstitial lung disease with mild interstitial lung edema versus acute small airway inflammatory process. Overall worsening since prior exam. Electronically signed by: Kalin Fernandez MD 02/06/2025 02:59 PM EDT RP Head CT 02/06/25 19:09 IMPRESSION: No acute intracranial process seen. Electronically signed by: Naveed Dhillon MD 02/07/2025 07:19 AM EDT RP Mental Status Exam Mental Status Exam Patient Orientation: Person Level of Consciousness: Awake, Appropriate and Alert Patient Behavior: Talkative and Cooperative Affect Description: Calm and Cheerful Speech Pattern: Clear Hallucinations: None Thought Content: positive for [place] and positive for Circumstantial Judgement: Fair (poor insiight) Medications Medications Current Medications Acetaminophen (Acetaminophen 325 Mg Tablet) 650 mg PO Q6H PRN On Hold: 02/06/25 20:58 PRN Reason: Headache/Pain, Scale 1-10 Amitriptyline HCl (Amitriptyline Hcl 10 Mg Tablet) 20 mg PO BEDTIME [facility]AB[facility] On Hold: 02/06/25 14:09 Last Admin: 02/05/25 21:45 Dose: 20 mg Calcium Carbonate/Cholecalciferol (Calcium + Vitamin D 250 Mg Tablet) 250 mg PO BID [facility] Last Admin: 02/15/25 08:02 Dose: 250 mg Cephalexin HCl (Cephalexin 500 Mg Capsule) 500 mg PO QID [facility] On Hold: 02/06/25 21:08 Last Admin: 02/06/25 22:21 Dose: Not Given Cyanocobalamin (Cyanocobalamin (Vitamin B-12) 1,000 Mcg Tablet) 1,000 mcg PO DAILY [facility] Last Admin: 02/15/25 08:02 Dose: 1,000 mcg Divalproex Sodium (Divalproex Sodium Er 250 Mg Tab.Er.24h) 1,250 mg PO BEDTIME ELISABET On Hold: 02/06/25 20:57 Last Admin: 02/05/25 21:45 Dose: 1,250 mg Enoxaparin Sodium (Enoxaparin Sodium 40 Mg/0.4 Ml Syringe) 40 mg SUBCUT Q24H [facility] On Hold: 02/07/25 03:13 Last Admin: 02/06/25 22:14 Dose: 40 mg Famotidine (Famotidine 20 Mg Tablet) 20 mg PO DAILY [facility] Last Admin: 02/15/25 08:02 Dose: 20 mg Finasteride (Finasteride 5 Mg Tablet) 5 mg PO DAILY [facility] Last Admin: 02/15/25 08:02 Dose: 5 mg Gabapentin (Gabapentin 300 Mg Capsule) 900 mg PO BID@0800,1200 [facility] On Hold: 02/06/25 14:09 Last Admin: 02/06/25 13:25 Dose: Not Given Gabapentin (Gabapentin 400 Mg Capsule) 1,200 mg PO BEDTIME [facility] On Hold: 02/06/25 14:09 Last Admin: 02/05/25 21:44 Dose: 1,200 mg Ketorolac Tromethamine (Ketorolac Tromethamine 10 Mg Tablet) 10 mg PO Q6H PRN PRN Reason: Pain, Moderate(Pain Scale 4-6) Magnesium Hydroxide (Milk Of Magnesia 30 Ml Oral.Susp) 30 ml PO DAILY PRN PRN Reason: Constipation Last Admin: 02/15/25 14:58 Dose: 30 ml Magnesium Oxide (Magnesium Oxide 400 Mg Tablet) 400 mg PO DAILY [facility] Last Admin: 02/15/25 08:02 Dose: 400 mg Melatonin (Melatonin 3 Mg Tablet) 6 mg PO BEDTIME PRN PRN Reason: Insomnia Last Admin: 02/11/25 20:11 Dose: 6 mg Memantine (Memantine Hcl 5 Mg Tablet) 5 mg PO BID [facility] Last Admin: 02/15/25 08:02 Dose: 5 mg Methadone HCl (Methadone Hcl 20 Mg/2 Ml Oral.Conc) 40 mg PO DAILY [facility] Last Admin: 02/15/25 08:03 Dose: 40 mg Naloxone HCl (Naloxone Hcl Nasal 4 Mg [place]) 4 mg NOSTRILALT Q2M PRN PRN Reason: opioid overdose Naproxen (Naproxen 500 Mg Tablet) 500 mg PO BID [facility] On Hold: 02/06/25 20:57 Last Admin: 02/06/25 08:24 Dose: 500 mg Quetiapine Fumarate (Quetiapine Fumarate 100 Mg Tablet) 100 mg PO BEDTIME [facility] On Hold: 02/06/25 14:09 Last Admin: 02/05/25 21:45 Dose: 100 mg Senna/Docusate Sodium (Sennosides/Docusate Sodium Tablet) 2 tab PO BEDTIME PRN PRN Reason: Constipation Sodium Chloride (0.9 % Sodium Chloride Flush 3 Ml Syringe) 3 ml IVFLUSH QSHIFT [facility] Last Admin: 02/15/25 08:03 Dose: 3 ml Tamsulosin HCl (Tamsulosin Hcl 0.4 Mg Capsule) 0.4 mg PO DAILY [facility] Last Admin: 02/15/25 08:02 Dose: 0.4 mg Valproic Acid (Valproic Acid 250 Mg Capsule) 250 mg PO BID [facility] Last Admin: 02/15/25 08:02 Dose: 250 mg Vitamin D (Cholecalciferol (Vitamin D3) 25 Mcg Tablet) 50 mcg PO DAILY [facility] Last Admin: 02/15/25 08:02 Dose: 50 mcg Allergies Allergies Allergy/AdvReac Type Severity Reaction Status Date / Time No Known Allergies (No Known Allergy Verified 01/31/25 12:20 Allergies*) Assessment & Plan Assessment & Plan (1) Opioid use disorder: Status: Acute Code(s): F11.90 - Opioid use, unspecified, uncomplicated Assessment and Plan: * continue methadone at current dose * high risk for fatal overdose with d/c of MOUD and recurrence of opiate use * no other recommendations at this time Total time managing care of this patient today _35___ minutes. PMFSH Past Medical History Medical History Drug overdose Opioid use disorder, severe, on maintenance therapy Social History Social History Household Members: None Household Members Other:: Son Housing: Assisted Living Facility Do you presently have visiting nurse or other home services: No Unable to assess alcohol history related to: Unable to respond Alcohol intake: current Alcohol intake frequency: does not drink Comment: sitter Patient Tobacco Use Status: Tobacco use Unknown Tobacco use type: Cigarette Cigarette Packs Per Day: 0.5 Cigarettes Per Day: 10.0 Years Smoked: 50 e-Cigarette/Vaping Use: Never Used Second Hand Smoke Exposure: Yes Substance Use Type: Crack/Cocaine, Heroin and Marijuana Advance Directives Date on File: 12/17/24 service: Yes Sexual orientation: Straight/Heterosexual
[2025-02-15 15:46] VITALS: BP 128/63; PULSE 80; RESP 19; TEMP 36.2; O2SAT 93
--- NOTE | 2025-02-15 15:59 | MHC.CM.PN ---
EMR REVIEWED AND PER MD ROUNDS, PT REMAINS MEDICALLY CLEAR AND AWAITING BED OFFER FOR LTC. PT'S BARRIERS FOR PLACEMENT INCLUDE METHADONE RX/[employer] INSURANCE. ADDICTION MEDICINE TO SEE PT FOR POSSIBLE TAPER OF METHADONE. NO BED OFFERS AT THIS TIME, CM PLACED CALL TO DE REP JAYNE TO COLLABORATE FOR POSSIBLE PLACEMENT AT A [facility]? AWAITING RETURN CALL.
[2025-02-15 19:45] VITALS: BP 146/82; PULSE 96; RESP 18; TEMP 35.9; O2SAT 93
[2025-02-16 03:21] VITALS: BP 110/59; PULSE 65; RESP 14; TEMP 36.1; O2SAT 95
[2025-02-16 07:51] LABS: Glucose, Whole Blood 84 mg/dL (60-115)
[2025-02-16 08:00] VITALS: BP 131/79; PULSE 105; RESP 18; TEMP 36.3; O2SAT 99
[2025-02-16] MEDS: Calcium + Vitamin D 250 MG TABLET PO ×2 (08:45→21:39)
[2025-02-16] MEDS: 0.9 % Sodium Chloride Flush 3 ML SYRINGE IVFLUSH ×2 (08:45→21:39)
[2025-02-16] MEDS: methADONE HCl 20 MG/2 ML ORAL.CONC 40 MG PO (08:46)
--- NOTE | 2025-02-16 13:42 | HO.PM.IMPN ---
Subjective Subjective Date of Service: 02/16/25 Interval History: No acute issues overnight Review of Systems Denies chest pain Denies nausea vomiting diarrhea Denies shortness of breath Denies fever chills Physical Exam Vital Signs: Vital Signs: Last Vital Signs Temp 97.4 F 02/16/25 08:00 Pulse 105 H 02/16/25 08:00 Resp 18 02/16/25 08:00 BP 131/79 02/16/25 08:00 Pulse Ox 99 02/16/25 08:00 O2 Del Method Room Air 02/16/25 08:00 BMI result Body Mass Index 21.6 Const: Other: Awake alert no acute distress Resp: Other: Clear to auscultation bilaterally no rales rhonchi or wheezes Cardio: Other: No S4; positive S1-S2 significant: No S3 murmurs rubs or gallops GI: Other: Soft nontender nondistended normoactive bowel sounds Extrem: Other: No edema bilateral Objective Data Active Medications Acetaminophen (Acetaminophen 325 Mg Tablet) 650 mg PO Q6H PRN On Hold: 02/06/25 20:58 PRN Reason: Headache/Pain, Scale 1-10 Amitriptyline HCl (Amitriptyline Hcl 10 Mg Tablet) 20 mg PO BEDTIME [facility] On Hold: 02/06/25 14:09 Last Admin: 02/05/25 21:45 Dose: 20 mg Documented By: LARS Calcium Carbonate/Cholecalciferol (Calcium + Vitamin D 250 Mg Tablet) 250 mg PO BID [facility] Last Admin: 02/16/25 08:45 Dose: 250 mg Documented By: VIK Cephalexin HCl (Cephalexin 500 Mg Capsule) 500 mg PO QID [facility] On Hold: 02/06/25 21:08 Last Admin: 02/06/25 22:21 Dose: Not Given Documented By: DELANEY Non-Admin Reason: NPO Cyanocobalamin (Cyanocobalamin (Vitamin B-12) 1,000 Mcg Tablet) 1,000 mcg PO DAILY [facility] Last Admin: 02/16/25 08:45 Dose: 1,000 mcg Documented By: VIK Divalproex Sodium (Divalproex Sodium Er 250 Mg Tab.Er.24h) 1,250 mg PO BEDTIME [facility] On Hold: 02/06/25 20:57 Last Admin: 02/05/25 21:45 Dose: 1,250 mg Documented By: LARS Enoxaparin Sodium (Enoxaparin Sodium 40 Mg/0.4 Ml Syringe) 40 mg SUBCUT Q24H [facility] On Hold: 02/07/25 03:13 Last Admin: 02/06/25 22:14 Dose: 40 mg Documented By: LAFLAMNelly Famotidine (Famotidine 20 Mg Tablet) 20 mg PO DAILY [facility] Last Admin: 02/16/25 08:45 Dose: 20 mg Documented By: VIK Finasteride (Finasteride 5 Mg Tablet) 5 mg PO DAILY [facility] Last Admin: 02/16/25 08:45 Dose: 5 mg Documented By: VIK Gabapentin (Gabapentin 300 Mg Capsule) 900 mg PO BID@0800,1200 [facility] On Hold: 02/06/25 14:09 Last Admin: 02/06/25 13:25 Dose: Not Given Documented By: АННА Non-Admin Reason: pt lethrgic Gabapentin (Gabapentin 400 Mg Capsule) 1,200 mg PO BEDTIME [facility] On Hold: 02/06/25 14:09 Last Admin: 02/05/25 21:44 Dose: 1,200 mg Documented By: LARS Ketorolac Tromethamine (Ketorolac Tromethamine 10 Mg Tablet) 10 mg PO Q6H PRN PRN Reason: Pain, Moderate(Pain Scale 4-6) Magnesium Hydroxide (Milk Of Magnesia 30 Ml Oral.Susp) 30 ml PO DAILY PRN PRN Reason: Constipation Last Admin: 02/15/25 14:58 Dose: 30 ml Documented By: NAYELI Magnesium Oxide (Magnesium Oxide 400 Mg Tablet) 400 mg PO DAILY [facility] Last Admin: 02/16/25 08:45 Dose: 400 mg Documented By: VIK Melatonin (Melatonin 3 Mg Tablet) 6 mg PO BEDTIME PRN PRN Reason: Insomnia Last Admin: 02/15/25 20:29 Dose: 6 mg Documented By: JUAN Memantine (Memantine Hcl 5 Mg Tablet) 5 mg PO BID [facility] Last Admin: 02/16/25 08:45 Dose: 5 mg Documented By: VIK Methadone HCl (Methadone Hcl 20 Mg/2 Ml Oral.Conc) 40 mg PO DAILY [facility] Last Admin: 02/16/25 08:46 Dose: 40 mg Documented By: VIK Co-signed By: YAAKOV Naloxone HCl (Naloxone Hcl Nasal 4 Mg [place]) 4 mg NOSTRILALT Q2M PRN PRN Reason: opioid overdose Naproxen (Naproxen 500 Mg Tablet) 500 mg PO BID [facility] On Hold: 02/06/25 20:57 Last Admin: 02/06/25 08:24 Dose: 500 mg Documented By: АННА Quetiapine Fumarate (Quetiapine Fumarate 100 Mg Tablet) 100 mg PO BEDTIME [facility] On Hold: 02/06/25 14:09 Last Admin: 02/05/25 21:45 Dose: 100 mg Documented By: LARS Senna/Docusate Sodium (Sennosides/Docusate Sodium Tablet) 2 tab PO BEDTIME PRN PRN Reason: Constipation Sodium Chloride (0.9 % Sodium Chloride Flush 3 Ml Syringe) 3 ml IVFLUSH QSHIFT ON [facility] Last Admin: 02/16/25 08:45 Dose: 3 ml Documented By: VIK Tamsulosin HCl (Tamsulosin Hcl 0.4 Mg Capsule) 0.4 mg PO DAILY [facility] Last Admin: 02/16/25 08:45 Dose: 0.4 mg Documented By: VIK Valproic Acid (Valproic Acid 250 Mg Capsule) 250 mg PO BID ON [facility] Last Admin: 02/16/25 08:45 Dose: 250 mg Documented By: VIK Vitamin D (Cholecalciferol (Vitamin D3) 25 Mcg Tablet) 50 mcg PO DAILY [facility] Last Admin: 02/16/25 08:45 Dose: 50 mcg Documented By: VIK Labs 02/08/25 05:37 02/07/25 05:56 Labs: Laboratory Results - last 24 hr 02/16/25 07:47 POC Glucose 84 Assessment and Plan (1) Adult failure to thrive: Status: Acute Plan The pt is a 74-year-old male with a PMH significant for polysubstance use disorder on methadone, GERD, and mood disorder who initially presented to the ED on 01/31/2025 for weakness and question of altered mental status. Pt was brought to the hospital floor and admitted for acute metabolic encephalopathy in setting of UTI and failure to thrive. 1.Failure to thrive -Presented to ED on 01/31/2025 for generalized weakness and possible AMS -Initial workup negative and was placed in PT/CM from 01/31-02/06 -Currently waiting on STR placement 2.Mood disorder/question of dementia -stable and well compensated -amitriptyline, divalproex, memantine, quetiapine -continue valproic acid 250 mg b.i.d. for now, slowly wean off 3.Polysubstance use disorder -appreciate input -too high risk to taper methadone -continue methadone Full Code DVT Prophylaxis: Pneumatic compression due to gross hematuria with clots Continued hospitalization: failure to thrive requiring placement to STR Quality Stroke Does the patient have a stroke diagnosis?: No VTE Prior VTE?: No VTE Risk Level:: Medical - moderate - high VTE Device Contraindication: Treatment Not Indicated VTE Drug Contraindication: N/A - Med Ordered
--- NOTE | 2025-02-16 14:20 | MHC.SL.SWA ---
Speech Pathologist Impression: Risk of Aspiration Due to: Dysphasia Diet Status: Continue on ground mechanical (NDD2) with THIN liquids, no straw, pills whole or crushed in puree. Alternate liquids and solids (assist patient with this) Cue patient to swallow before adding more food to mouth. Liquid Consistency and Strategies for Safe Swallow: Liquid Intake Recommendation: Thin Liquid Intake Strategies: Small Sips No Straws Solid Food Consistency: Dietary Recommendations: Grnd/Mech Altered (NDD2) Additional Modifications to Solid Foods: Oral Medication Intake: Crushed with Puree Please contact the pharmacy regarding appropriate crushable or liquid drug formulations that are available whenever modified delivery is recommended. Compensatory Strategies and Precautions to be Taken for Safe Swallow: Sitting Upright (90 deg) No Straw Alternate Liquids/Solids Oral Check Supervision While Eating and Drinking for Safe Swallow: Intermittent Supervision Foods to Avoid: Tough, difficult to chew solids. Swallowing Recommended Treatments: Compens. Strategy Educat. Recommendation for Speech: Inpatient Speech Therapy Comment: Patient seen at lunch today, in new room. Patient was alone in the room with tray at side of bed: Patient was leaning over toward tray, had cup of pudding and was feeding self. ELECTRONIC INDUSTRIAL CONTR[employer]S MECHANIC then re-arranged tray so that it was in front of patient with head of bed raised to 90 degrees. Patient was very pleasant and cheerful, then proceeded to feed self the meal, scooping bites of ground meat, mashed potatoes and carrots. Patient accepted periodic sips of juice to help clear any oral residual/pocketed food, however minimal pocketing was observed at today's meal. Patient was making good progress with independently feeding self, E[employer] MECHANIC left and advised DISHCLOTH FOLDER to periodically look in on patient during remainder of meal. Patient at a minimum needs tray set up for him and periodic supervision during his meal to make sure he is progressing, not spilling or pocketing food. E[employer]IC [employer]USTRI[employer] CONTR[employer]S MECHANIC will continue to check in on patient 1-2 X weekly while he remains an inpatient. Continue on Ground Mechanical (NDD2) with THIN liquids, no straw, pills whole or crushed in puree. Frequency/Duration: Date Range for Service Req: Timeline to reassess: Leather Heel Breaster Clinican/Clinical Fellow: No Supervisory Statement: I have reviewed and agree with the student/clinical fellow's documentation: N/A Speech Language Pathologist: Gretchen Walton M.A., CCC-ELECTRONIC [employer]S MECHANIC
--- NOTE | 2025-02-16 14:38 | MHC.CM.PN ---
CM PLACED CALL TO HANK GRAY WITH REQUEST FOR CALL BACK TO DISCUSS DC PLAN. REFERRALS EXPANDED TO [facility] WITH NO BED OFFERS OF YET. CM WILL CONTINUE TO FOLLOW.
[2025-02-16 15:40] VITALS: BP 113/69; PULSE 70; RESP 18; TEMP 36.3; O2SAT 95
[2025-02-16 19:16] VITALS: BP 125/72; PULSE 77; RESP 19; TEMP 36.5; O2SAT 94
[2025-02-17 03:35] VITALS: BP 130/74; PULSE 74; RESP 18; TEMP 36.2; O2SAT 96
--- NOTE | 2025-02-17 05:53 | PC.NURSE ---
Pt alert and oriented to self only, impulsive and fail to make needs known, redirected at times, denies any pain, meds tolerated, assisted to the commode , BM passed, slept later of the night.
[2025-02-17 07:24] VITALS: BP 126/61; PULSE 62; RESP 18; TEMP 36; O2SAT 96
[2025-02-17 07:35] LABS: Glucose, Whole Blood 76 mg/dL (60-115)
[2025-02-17] MEDS: Calcium + Vitamin D 250 MG TABLET PO ×2 (08:54→20:07)
[2025-02-17] MEDS: methADONE HCl 20 MG/2 ML ORAL.CONC 40 MG PO (08:55)
[2025-02-17] MEDS: 0.9 % Sodium Chloride Flush 3 ML SYRINGE IVFLUSH ×3 (08:59→20:07)
[2025-02-17] MEDS: Milk of Magnesia 30 ML ORAL.SUSP PO (11:14)
--- NOTE | 2025-02-17 11:14 | MHC.CM.PN ---
Awaiting rehab placement. No bed offers at this time. This CM faxed clinicals to Kathy @ [facility] on 02/17 for review/consideration for [facility]fer to [facility]. Placed follow up call to Kathy who reports pt is being considered for a [facility] re[facility] facility in [place]. Awaiting MD to MD for final decision. Dr. Cole aware. Patient updated and agrees w/ plan.
[2025-02-17 11:16] LABS: Glucose, Whole Blood 121 mg/dL (60-115)
--- NOTE | 2025-02-17 14:04 | HO.WOUND ---
Wound Consult: Follow up 74yr old?male admitted to [facility] on 02/06/25 - See progress notes and H&P for detailed history.? Wound consult follow up for Sacral wound.? Patient agreeable to assessment and photo documentation.? No new topical recommendations improved wound bed continue with topical triad and foam dressing. SHIRA continued in use along with waffle cushion when up to chair. 12/21/24 At time of prior admission - [facility] 02/13/25 02/15/25 02/15/25 02/17/25 Coccyx Etiology: Improving ?MASD -IAD (Moisture Associated Skin Damage - Incontinence Associated Dermatitis) Wound Bed: Improving - resurfacing mirrored wound bed within gluteal crease pink clean moist tissue revealed Drainage / Odor: no odor scant serous sanguineous Edges: ? Mirrored and attached Maureen wound: ? No Induration, Fluctuance or Warmth noted Pain: pain reported when cleansed Goals of Treatment: Off Load Pressure and Triad No new topical recommendations needed at this time. Recommendations: 1. Turn and Reposition every 2 hours and as needed for patient comfort.? Use pillows or wedges to support off loading positions. 2. Off Load all bony prominences with use of pillows and heel boots if needed.? Apply Preventative foams where needed. ? 3. Monitor for incontinence and moisture control, use barrier creams when needed for prevention and treatment. 4. Provide adequate and supplemental nutrition.? 5. Order low air loss mattress. 6. When applicable maintain blood glucose levels per Providers order. Forehead - monitor for resolution - may leave NATALIIA. Coccyx and Buttock - Off Load Pressure with Q2 hr turns and use of pillows - Routine cleansing.?Apply thin layer of Triad to wound bed. Do not remove all of paste between applications as this may cause further skin damage.? Cover with foam dressing to aid in off loading and protection from friction. Change Daily and PRN. Re-consult wound care Nurse for wound deterioration or wound changes.
--- NOTE | 2025-02-17 15:08 | HO.PM.IMPN ---
Subjective Subjective Date of Service: 02/17/25 Interval History: No acute issues overnight Review of Systems Denies chest pain Denies nausea vomiting diarrhea Denies shortness of breath Denies fever chills Physical Exam Vital Signs: Vital Signs: Last Vital Signs Temp 96.8 F 02/17/25 07:24 Pulse 62 02/17/25 07:24 Resp 18 02/17/25 07:24 BP 126/61 02/17/25 07:24 Pulse Ox 96 02/17/25 07:24 O2 Del Method Room Air 02/17/25 07:24 BMI result Body Mass Index 21.6 Const: Other: Awake alert no acute distress Resp: Other: Clear to auscultation bilaterally no rales rhonchi or wheezes Cardio: Other: No S4; positive S1-S2 significant: No S3 murmurs rubs or gallops GI: Other: Soft nontender nondistended normoactive bowel sounds Extrem: Other: No edema bilateral Objective Data Active Medications Acetaminophen (Acetaminophen 325 Mg Tablet) 650 mg PO Q6H PRN On Hold: 02/06/25 20:58 PRN Reason: Headache/Pain, Scale 1-10 Amitriptyline HCl (Amitriptyline Hcl 10 Mg Tablet) 20 mg PO BEDTIME [facility] On Hold: 02/06/25 14:09 Last Admin: 02/05/25 21:45 Dose: 20 mg Documented By: LARS Calcium Carbonate/Cholecalciferol (Calcium + Vitamin D 250 Mg Tablet) 250 mg PO BID [facility] Last Admin: 02/17/25 08:54 Dose: 250 mg Documented By: RORY Cephalexin HCl (Cephalexin 500 Mg Capsule) 500 mg PO QID [facility] On Hold: 02/06/25 21:08 Last Admin: 02/06/25 22:21 Dose: Not Given Documented By: DELANEY Non-Admin Reason: NPO Cyanocobalamin (Cyanocobalamin (Vitamin B-12) 1,000 Mcg Tablet) 1,000 mcg PO DAILY [facility] Last Admin: 02/17/25 08:54 Dose: 1,000 mcg Documented By: RORY Divalproex Sodium (Divalproex Sodium Er 250 Mg Tab.Er.24h) 1,250 mg PO BEDTIME [facility] On Hold: 02/06/25 20:57 Last Admin: 02/05/25 21:45 Dose: 1,250 mg Documented By: LARS Enoxaparin Sodium (Enoxaparin Sodium 40 Mg/0.4 Ml Syringe) 40 mg SUBCUT Q24H [facility] On Hold: 02/07/25 03:13 Last Admin: 02/06/25 22:14 Dose: 40 mg Documented By: DELANEY Famotidine (Famotidine 20 Mg Tablet) 20 mg PO DAILY [facility] Last Admin: 02/17/25 08:54 Dose: 20 mg Documented By: RORY Finasteride (Finasteride 5 Mg Tablet) 5 mg PO DAILY [facility] Last Admin: 02/17/25 08:54 Dose: 5 mg Documented By: RORY Gabapentin (Gabapentin 300 Mg Capsule) 900 mg PO BID@0800,1200 [facility] On Hold: 02/06/25 14:09 Last Admin: 02/06/25 13:25 Dose: Not Given Documented By: АННА Non-Admin Reason: pt lethrgic Gabapentin (Gabapentin 400 Mg Capsule) 1,200 mg PO BEDTIME [facility] On Hold: 02/06/25 14:09 Last Admin: 02/05/25 21:44 Dose: 1,200 mg Documented By: LARS Ketorolac Tromethamine (Ketorolac Tromethamine 10 Mg Tablet) 10 mg PO Q6H PRN PRN Reason: Pain, Moderate(Pain Scale 4-6) Magnesium Hydroxide (Milk Of Magnesia 30 Ml Oral.Susp) 30 ml PO DAILY PRN PRN Reason: Constipation Last Admin: 02/17/25 11:14 Dose: 30 ml Documented By: RORY Magnesium Oxide (Magnesium Oxide 400 Mg Tablet) 400 mg PO DAILY [facility] Last Admin: 02/17/25 08:54 Dose: 400 mg Documented By: RORY Melatonin (Melatonin 3 Mg Tablet) 6 mg PO BEDTIME PRN PRN Reason: Insomnia Last Admin: 02/16/25 22:52 Dose: 6 mg Documented By: CASTILM Memantine (Memantine Hcl 5 Mg Tablet) 5 mg PO BID [facility] Last Admin: 02/17/25 08:54 Dose: 5 mg Documented By: RORY Methadone HCl (Methadone Hcl 20 Mg/2 Ml Oral.Conc) 40 mg PO DAILY [facility] Last Admin: 02/17/25 08:55 Dose: 40 mg Documented By: RORY Co-signed By: LYNN Naloxone HCl (Naloxone Hcl Nasal 4 Mg [place]) 4 mg NOSTRILALT Q2M PRN PRN Reason: opioid overdose Naproxen (Naproxen 500 Mg Tablet) 500 mg PO BID [facility] On Hold: 02/06/25 20:57 Last Admin: 02/06/25 08:24 Dose: 500 mg Documented By: АННА Quetiapine Fumarate (Quetiapine Fumarate 100 Mg Tablet) 100 mg PO BEDTIME [facility] On Hold: 02/06/25 14:09 Last Admin: 02/05/25 21:45 Dose: 100 mg Documented By: LARS Senna/Docusate Sodium (Sennosides/Docusate Sodium Tablet) 2 tab PO BEDTIME PRN PRN Reason: Constipation Last Admin: 02/16/25 22:50 Dose: 2 tab Documented By: CASTILEnriqueta Sodium Chloride (0.9 % Sodium Chloride Flush 3 Ml Syringe) 3 ml IVFLUSH QSHIFT [facility] Last Admin: 02/17/25 08:59 Dose: 3 ml Documented By: RORY Tamsulosin HCl (Tamsulosin Hcl 0.4 Mg Capsule) 0.4 mg PO DAILY [facility] Last Admin: 02/17/25 09:06 Dose: 0.4 mg Documented By: RORY Valproic Acid (Valproic Acid 250 Mg Capsule) 250 mg PO BID [facility] Last Admin: 02/17/25 08:54 Dose: 250 mg Documented By: RORY Vitamin D (Cholecalciferol (Vitamin D3) 25 Mcg Tablet) 50 mcg PO DAILY [facility] Last Admin: 02/17/25 08:54 Dose: 50 mcg Documented By: RORY Labs 02/08/25 05:37 02/07/25 05:56 Labs: Laboratory Results - last 24 hr 02/17/25 02/17/25 07:23 11:11 POC Glucose 76 121 H Assessment and Plan (1) Adult failure to thrive: Status: Acute Plan The pt is a 74-year-old male with a PMH significant for polysubstance use disorder on methadone, GERD, and mood disorder who initially presented to the ED on 01/31/2025 for weakness and question of altered mental status. Pt was brought to the hospital floor and admitted for acute metabolic encephalopathy in setting of UTI and failure to thrive. 1.Failure to thrive -Presented to ED on 01/31/2025 for generalized weakness and possible AMS -Initial workup negative and was placed in PT/CM from 01/31-02/06 -Currently waiting on STR placement 2.Mood disorder/question of dementia -stable and well compensated -amitriptyline, divalproex, memantine, quetiapine -continue valproic acid 250 mg b.i.d. for now, slowly wean off 3.Polysubstance use disorder -appreciate input -too high risk to taper methadone -continue methadone Full Code DVT Prophylaxis: Pneumatic compression due to gross hematuria with clots Continued hospitalization: failure to thrive requiring placement to STR Quality Stroke Does the patient have a stroke diagnosis?: No VTE Prior VTE?: No VTE Risk Level:: Medical - moderate - high VTE Device Contraindication: Treatment Not Indicated VTE Drug Contraindication: N/A - Med Ordered
[2025-02-17 16:00] VITALS: BP 124/67; PULSE 70; RESP 20; TEMP 36.4; O2SAT 95
[2025-02-17 20:00] VITALS: BP 108/60; PULSE 78; RESP 20; TEMP 36.7; O2SAT 92
[2025-02-18 03:26] VITALS: BP 104/60; PULSE 69; RESP 16; TEMP 36; O2SAT 97
[2025-02-18 07:44] VITALS: BP 124/73; PULSE 66; RESP 14; TEMP 36.1; O2SAT 96
[2025-02-18 07:52] LABS: Glucose, Whole Blood 61 mg/dL (60-115)
[2025-02-18] MEDS: Calcium + Vitamin D 250 MG TABLET PO ×2 (08:12→20:01)
[2025-02-18] MEDS: 0.9 % Sodium Chloride Flush 3 ML SYRINGE IVFLUSH ×3 (08:15→20:01)
[2025-02-18] MEDS: methADONE HCl 20 MG/2 ML ORAL.CONC 40 MG PO (08:16)
--- NOTE | 2025-02-18 09:10 | HO.PM.IMPN ---
Subjective Subjective Date of Service: 02/18/25 Interval History: admitted for weakness, ams and now awaiting placement No new issues Physical Exam Vital Signs: Vital Signs: Last Vital Signs Temp 97.0 F 02/18/25 07:44 Pulse 66 02/18/25 07:44 Resp 14 02/18/25 07:44 BP 124/73 02/18/25 07:44 Pulse Ox 96 02/18/25 07:44 O2 Del Method Room Air 02/18/25 07:44 BMI result Body Mass Index 21.6 Const: Other: General: oriented to self,, no acute distress Resp: CTA bilateral CVS: S1,S2,RRR GI: +BS, NT, no distention Skin: No rash Neuro: motor grossly intact Psych: appropriate affect Objective Data Active Medications Acetaminophen (Acetaminophen 325 Mg Tablet) 650 mg PO Q6H PRN On Hold: 02/06/25 20:58 PRN Reason: Headache/Pain, Scale 1-10 Amitriptyline HCl (Amitriptyline Hcl 10 Mg Tablet) 20 mg PO BEDTIME [facility] On Hold: 02/06/25 14:09 Last Admin: 02/05/25 21:45 Dose: 20 mg Documented By: LARS Calcium Carbonate/Cholecalciferol (Calcium + Vitamin D 250 Mg Tablet) 250 mg PO BID [facility] Last Admin: 02/18/25 08:12 Dose: 250 mg Documented By: RORY Cephalexin HCl (Cephalexin 500 Mg Capsule) 500 mg PO QID [facility] On Hold: 02/06/25 21:08 Last Admin: 02/06/25 22:21 Dose: Not Given Documented By: DELANEY Non-Admin Reason: NPO Cyanocobalamin (Cyanocobalamin (Vitamin B-12) 1,000 Mcg Tablet) 1,000 mcg PO DAILY [facility] Last Admin: 02/18/25 08:12 Dose: 1,000 mcg Documented By: RORY Divalproex Sodium (Divalproex Sodium Er 250 Mg Tab.Er.24h) 1,250 mg PO BEDTIME [facility] On Hold: 02/06/25 20:57 Last Admin: 02/05/25 21:45 Dose: 1,250 mg Documented By: LARS Enoxaparin Sodium (Enoxaparin Sodium 40 Mg/0.4 Ml Syringe) 40 mg SUBCUT Q24H [facility] On Hold: 02/07/25 03:13 Last Admin: 02/06/25 22:14 Dose: 40 mg Documented By: LAFLAMC Famotidine (Famotidine 20 Mg Tablet) 20 mg PO DAILY [facility] Last Admin: 02/18/25 08:12 Dose: 20 mg Documented By: RORY Finasteride (Finasteride 5 Mg Tablet) 5 mg PO DAILY [facility] Last Admin: 02/18/25 08:13 Dose: 5 mg Documented By: RORY Gabapentin (Gabapentin 300 Mg Capsule) 900 mg PO BID@0800,1200 [facility] On Hold: 02/06/25 14:09 Last Admin: 02/06/25 13:25 Dose: Not Given Documented By: АННА Non-Admin Reason: pt lethrgic Gabapentin (Gabapentin 400 Mg Capsule) 1,200 mg PO BEDTIME [facility] On Hold: 02/06/25 14:09 Last Admin: 02/05/25 21:44 Dose: 1,200 mg Documented By: LARS Ketorolac Tromethamine (Ketorolac Tromethamine 10 Mg Tablet) 10 mg PO Q6H PRN PRN Reason: Pain, Moderate(Pain Scale 4-6) Magnesium Hydroxide (Milk Of Magnesia 30 Ml Oral.Susp) 30 ml PO DAILY PRN PRN Reason: Constipation Last Admin: 02/17/25 11:14 Dose: 30 ml Documented By: RORY Magnesium Oxide (Magnesium Oxide 400 Mg Tablet) 400 mg PO DAILY [facility] Last Admin: 02/18/25 08:12 Dose: 400 mg Documented By: RORY Melatonin (Melatonin 3 Mg Tablet) 6 mg PO BEDTIME PRN PRN Reason: Insomnia Last Admin: 02/16/25 22:52 Dose: 6 mg Documented By: CASTILEnriqueta Memantine (Memantine Hcl 5 Mg Tablet) 5 mg PO BID [facility] Last Admin: 02/18/25 08:12 Dose: 5 mg Documented By: RORY Methadone HCl (Methadone Hcl 20 Mg/2 Ml Oral.Conc) 40 mg PO DAILY [facility] Last Admin: 02/18/25 08:16 Dose: 40 mg Documented By: RORY Co-signed By: CIPRIANO Naloxone HCl (Naloxone Hcl Nasal 4 Mg [place]) 4 mg NOSTRILALT Q2M PRN PRN Reason: opioid overdose Naproxen (Naproxen 500 Mg Tablet) 500 mg PO BID [facility] On Hold: 02/06/25 20:57 Last Admin: 02/06/25 08:24 Dose: 500 mg Documented By: АННА Quetiapine Fumarate (Quetiapine Fumarate 100 Mg Tablet) 100 mg PO BEDTIME [facility] On Hold: 02/06/25 14:09 Last Admin: 02/05/25 21:45 Dose: 100 mg Documented By: LARS Senna/Docusate Sodium (Sennosides/Docusate Sodium Tablet) 2 tab PO BEDTIME PRN PRN Reason: Constipation Last Admin: 02/16/25 22:50 Dose: 2 tab Documented By: CASTILEnriqueta Sodium Chloride (0.9 % Sodium Chloride Flush 3 Ml Syringe) 3 ml IVFLUSH QSHIFT [facility] Last Admin: 02/18/25 08:15 Dose: 3 ml Documented By: RORY Tamsulosin HCl (Tamsulosin Hcl 0.4 Mg Capsule) 0.4 mg PO DAILY [facility] Last Admin: 02/18/25 08:12 Dose: 0.4 mg Documented By: RORY Valproic Acid (Valproic Acid 250 Mg Capsule) 250 mg PO BID [facility] Last Admin: 02/18/25 08:12 Dose: 250 mg Documented By: RORY Vitamin D (Cholecalciferol (Vitamin D3) 25 Mcg Tablet) 50 mcg PO DAILY [facility] Last Admin: 02/18/25 08:12 Dose: 50 mcg Documented By: RORY Labs 02/08/25 05:37 02/07/25 05:56 Labs: Laboratory Results - last 24 hr 02/17/25 02/18/25 11:11 07:49 POC Glucose 121 H 61 Assessment and Plan (1) Adult failure to thrive: Status: Acute Plan The pt is a 74-year-old male with a PMH significant for polysubstance use disorder on methadone, GERD, and mood disorder who initially presented to the ED on 01/31/2025 for weakness and question of altered mental status. Pt was brought to the hospital floor and admitted for acute metabolic encephalopathy in setting of UTI and failure to thrive. AdultFailure to thrive, -Presented to ED on 01/31/2025 for generalized weakness and possible AMS -Initial workup negative and was placed in PT/CM from 01/31-02/06 -Currently waiting on STR placement Mood disorder/question of dementia -stable and well compensated -amitriptyline, divalproex, memantine, quetiapine -continue valproic acid 250 mg b.i.d. for now, slowly wean off Polysubstance use disorder -appreciate input -too high risk to taper methadone -continue methadone Full Code DVT Prophylaxis: Pneumatic compression due to gross hematuria with clots Continued hospitalization: failure to thrive requiring placement to STR Quality Stroke Does the patient have a stroke diagnosis?: No VTE Prior VTE?: No VTE Risk Level:: Medical - moderate - high VTE Device Contraindication: Treatment Not Indicated VTE Drug Contraindication: N/A - Med Ordered
[2025-02-18 09:28] LABS: Glucose, Whole Blood 107 mg/dL (60-115)
[2025-02-18 15:04] VITALS: BP 98/55; PULSE 71; RESP 14; TEMP 36.6; O2SAT 94
[2025-02-18 19:12] VITALS: BP 103/71; PULSE 73; RESP 18; TEMP 36.2; O2SAT 95
[2025-02-19 03:07] VITALS: BP 111/69; PULSE 66; RESP 16; TEMP 36.1; O2SAT 94
--- NOTE | 2025-02-19 04:26 | PC.NURSE ---
Pt seen on bed alert and confused, pt easily redirectible, meds tolerated, slept at intervals, bed alarm on.
[2025-02-19 07:49] VITALS: BP 153/77; PULSE 68; RESP 16; TEMP 36.2; O2SAT 93
[2025-02-19 07:50] LABS: Glucose, Whole Blood 66 mg/dL (60-115)
[2025-02-19] MEDS: 0.9 % Sodium Chloride Flush 3 ML SYRINGE IVFLUSH ×2 (09:10→16:46)
[2025-02-19] MEDS: Calcium + Vitamin D 250 MG TABLET PO ×2 (09:11→20:31)
[2025-02-19] MEDS: methADONE HCl 20 MG/2 ML ORAL.CONC 40 MG PO (09:11)
--- NOTE | 2025-02-19 09:22 | HO.PM.IMPN ---
Subjective Subjective Date of Service: 02/19/25 Interval History: admitted for weakness, ams and now awaiting placement No new issues today, other noted glucose of 66 and apropriate intervention followed Physical Exam Vital Signs: Vital Signs: Last Vital Signs Temp 97.2 F 02/19/25 07:49 Pulse 68 02/19/25 07:49 Resp 16 02/19/25 07:49 BP 153/77 H 02/19/25 07:49 Pulse Ox 93 02/19/25 07:49 O2 Del Method Room Air 02/19/25 07:49 BMI result Body Mass Index 21.6 Const: Other: General: oriented to self,, no acute distress Resp: CTA bilateral CVS: S1,S2,RRR GI: +BS, NT, no distention Skin: No rash Neuro: motor grossly intact Psych: appropriate affect Objective Data Active Medications Acetaminophen (Acetaminophen 325 Mg Tablet) 650 mg PO Q6H PRN On Hold: 02/06/25 20:58 PRN Reason: Headache/Pain, Scale 1-10 Amitriptyline HCl (Amitriptyline Hcl 10 Mg Tablet) 20 mg PO BEDTIME [facility] On Hold: 02/06/25 14:09 Last Admin: 02/05/25 21:45 Dose: 20 mg Documented By: LARS Calcium Carbonate/Cholecalciferol (Calcium + Vitamin D 250 Mg Tablet) 250 mg PO BID [facility] Last Admin: 02/19/25 09:11 Dose: 250 mg Documented By: RORY Cephalexin HCl (Cephalexin 500 Mg Capsule) 500 mg PO QID [facility] On Hold: 02/06/25 21:08 Last Admin: 02/06/25 22:21 Dose: Not Given Documented By: DELANEY Non-Admin Reason: NPO Cyanocobalamin (Cyanocobalamin (Vitamin B-12) 1,000 Mcg Tablet) 1,000 mcg PO DAILY [facility] Last Admin: 02/19/25 09:10 Dose: 1,000 mcg Documented By: RORY Divalproex Sodium (Divalproex Sodium Er 250 Mg Tab.Er.24h) 1,250 mg PO BEDTIME [facility] On Hold: 02/06/25 20:57 Last Admin: 02/05/25 21:45 Dose: 1,250 mg Documented By: LARS Enoxaparin Sodium (Enoxaparin Sodium 40 Mg/0.4 Ml Syringe) 40 mg SUBCUT Q24H [facility] On Hold: 02/07/25 03:13 Last Admin: 02/06/25 22:14 Dose: 40 mg Documented By: LAFLAMNelly Famotidine (Famotidine 20 Mg Tablet) 20 mg PO DAILY [facility] Last Admin: 02/19/25 09:10 Dose: 20 mg Documented By: RORY Finasteride (Finasteride 5 Mg Tablet) 5 mg PO DAILY [facility] Last Admin: 02/19/25 09:11 Dose: 5 mg Documented By: RORY Gabapentin (Gabapentin 300 Mg Capsule) 900 mg PO BID@0800,1200 [facility] On Hold: 02/06/25 14:09 Last Admin: 02/06/25 13:25 Dose: Not Given Documented By: АННА Non-Admin Reason: pt lethrgic Gabapentin (Gabapentin 400 Mg Capsule) 1,200 mg PO BEDTIME [facility] On Hold: 02/06/25 14:09 Last Admin: 02/05/25 21:44 Dose: 1,200 mg Documented By: LARS Ketorolac Tromethamine (Ketorolac Tromethamine 10 Mg Tablet) 10 mg PO Q6H PRN PRN Reason: Pain, Moderate(Pain Scale 4-6) Magnesium Hydroxide (Milk Of Magnesia 30 Ml Oral.Susp) 30 ml PO DAILY PRN PRN Reason: Constipation Last Admin: 02/17/25 11:14 Dose: 30 ml Documented By: RORY Magnesium Oxide (Magnesium Oxide 400 Mg Tablet) 400 mg PO DAILY [facility] Last Admin: 02/19/25 09:10 Dose: 400 mg Documented By: RORY Melatonin (Melatonin 3 Mg Tablet) 6 mg PO BEDTIME PRN PRN Reason: Insomnia Last Admin: 02/18/25 20:02 Dose: 6 mg Documented By: CASTILEnriqueta Memantine (Memantine Hcl 5 Mg Tablet) 5 mg PO BID [facility] Last Admin: 02/19/25 09:10 Dose: 5 mg Documented By: RORY Methadone HCl (Methadone Hcl 20 Mg/2 Ml Oral.Conc) 40 mg PO DAILY [facility] Last Admin: 02/19/25 09:11 Dose: 40 mg Documented By: RORY Co-signed By: FRANKLIN Naloxone HCl (Naloxone Hcl Nasal 4 Mg [place]) 4 mg NOSTRILALT Q2M PRN PRN Reason: opioid overdose Naproxen (Naproxen 500 Mg Tablet) 500 mg PO BID [facility] On Hold: 02/06/25 20:57 Last Admin: 02/06/25 08:24 Dose: 500 mg Documented By: АННА Quetiapine Fumarate (Quetiapine Fumarate 100 Mg Tablet) 100 mg PO BEDTIME [facility] On Hold: 02/06/25 14:09 Last Admin: 02/05/25 21:45 Dose: 100 mg Documented By: LARS Senna/Docusate Sodium (Sennosides/Docusate Sodium Tablet) 2 tab PO BEDTIME PRN PRN Reason: Constipation Last Admin: 02/18/25 20:02 Dose: 2 tab Documented By: CASTILEnriqueta Sodium Chloride (0.9 % Sodium Chloride Flush 3 Ml Syringe) 3 ml IVFLUSH QSHIFT [facility] Last Admin: 02/19/25 09:10 Dose: 3 ml Documented By: RORY Tamsulosin HCl (Tamsulosin Hcl 0.4 Mg Capsule) 0.4 mg PO DAILY [facility] Last Admin: 02/19/25 09:10 Dose: 0.4 mg Documented By: RORY Valproic Acid (Valproic Acid 250 Mg Capsule) 250 mg PO BID [facility] Last Admin: 02/19/25 09:10 Dose: 250 mg Documented By: RORY Vitamin D (Cholecalciferol (Vitamin D3) 25 Mcg Tablet) 50 mcg PO DAILY [facility] Last Admin: 02/19/25 09:10 Dose: 50 mcg Documented By: RORY Labs 02/08/25 05:37 02/07/25 05:56 Labs: Laboratory Results - last 24 hr 02/18/25 02/19/25 09:24 07:47 POC Glucose 107 66 Assessment and Plan (1) Adult failure to thrive: Status: Acute Plan The pt is a 74-year-old male with a PMH significant for polysubstance use disorder on methadone, GERD, and mood disorder who initially presented to the ED on 01/31/2025 for weakness and question of altered mental status. Pt was brought to the hospital floor and admitted for acute metabolic encephalopathy in setting of UTI and failure to thrive. AdultFailure to thrive, -Presented to ED on 01/31/2025 for generalized weakness and possible AMS -Initial workup negative and was placed in PT/CM from 01/31-02/06 -Currently waiting on STR placement Mood disorder/question of dementia -stable and well compensated -amitriptyline, divalproex, memantine, quetiapine -continue valproic acid 250 mg b.i.d. for now, slowly wean off Polysubstance use disorder -appreciate input -too high risk to taper methadone -continue methadone Hypoglycemia intermittently, assymptomatic, daily glucose check and intervention as needed Full Code DVT Prophylaxis: Pneumatic compression due to gross hematuria with clots Continued hospitalization: failure to thrive requiring placement to STR Quality Stroke Does the patient have a stroke diagnosis?: No VTE Prior VTE?: No VTE Risk Level:: Medical - moderate - high VTE Device Contraindication: Treatment Not Indicated VTE Drug Contraindication: N/A - Med Ordered
[2025-02-19 15:39] VITALS: BP 102/71; PULSE 69; RESP 14; TEMP 36.1; O2SAT 95
[2025-02-19 19:20] VITALS: BP 109/76; PULSE 77; RESP 18; TEMP 36.4; O2SAT 95
[2025-02-19 20:20] LABS: Glucose, Whole Blood 107 mg/dL (60-115)
[2025-02-20 03:10] VITALS: BP 136/67; PULSE 68; RESP 18; TEMP 36.4; O2SAT 96
[2025-02-20 07:36] LABS: Glucose, Whole Blood 75 mg/dL (60-115)
[2025-02-20 07:49] VITALS: BP 119/64; PULSE 60; RESP 17; TEMP 36.2; O2SAT 97
[2025-02-20] MEDS: Calcium + Vitamin D 250 MG TABLET PO ×2 (08:30→20:16)
[2025-02-20] MEDS: 0.9 % Sodium Chloride Flush 3 ML SYRINGE IVFLUSH ×2 (08:31→16:51)
[2025-02-20] MEDS: methADONE HCl 20 MG/2 ML ORAL.CONC 40 MG PO (08:31)
--- NOTE | 2025-02-20 09:53 | HO.PM.IMPN ---
Subjective Subjective Date of Service: 02/20/25 Interval History: No new issues Physical Exam Vital Signs: Vital Signs: Last Vital Signs Temp 97.1 F 02/20/25 07:49 Pulse 60 02/20/25 07:49 Resp 17 02/20/25 07:49 BP 119/64 02/20/25 07:49 Pulse Ox 97 02/20/25 07:49 O2 Del Method Room Air 02/20/25 07:49 BMI result Body Mass Index 21.6 Const: Other: General: oriented to self,, no acute distress Resp: CTA bilateral CVS: S1,S2,RRR GI: +BS, NT, no distention Skin: No rash Neuro: motor grossly intact Psych: appropriate affect Objective Data Active Medications Acetaminophen (Acetaminophen 325 Mg Tablet) 650 mg PO Q6H PRN On Hold: 02/06/25 20:58 PRN Reason: Headache/Pain, Scale 1-10 Amitriptyline HCl (Amitriptyline Hcl 10 Mg Tablet) 20 mg PO BEDTIME [facility] On Hold: 02/06/25 14:09 Last Admin: 02/05/25 21:45 Dose: 20 mg Documented By: LARS Calcium Carbonate/Cholecalciferol (Calcium + Vitamin D 250 Mg Tablet) 250 mg PO BID [facility]ISABET Last Admin: 02/20/25 08:30 Dose: 250 mg Documented By: NAYELI Cephalexin HCl (Cephalexin 500 Mg Capsule) 500 mg PO QID [facility] On Hold: 02/06/25 21:08 Last Admin: 02/06/25 22:21 Dose: Not Given Documented By: DELANEY Non-Admin Reason: NPO Cyanocobalamin (Cyanocobalamin (Vitamin B-12) 1,000 Mcg Tablet) 1,000 mcg PO DAILY [facility]ABET Last Admin: 02/20/25 08:30 Dose: 1,000 mcg Documented By: NAYELI Divalproex Sodium (Divalproex Sodium Er 250 Mg Tab.Er.24h) 1,250 mg PO BEDTIME [facility]ISABET On Hold: 02/06/25 20:57 Last Admin: 02/05/25 21:45 Dose: 1,250 mg Documented By: LARS Enoxaparin Sodium (Enoxaparin Sodium 40 Mg/0.4 Ml Syringe) 40 mg SUBCUT Q24H [facility]ISABET On Hold: 02/07/25 03:13 Last Admin: 02/06/25 22:14 Dose: 40 mg Documented By: DELANEY Famotidine (Famotidine 20 Mg Tablet) 20 mg PO DAILY [facility] Last Admin: 02/20/25 08:31 Dose: 20 mg Documented By: NAYELI Finasteride (Finasteride 5 Mg Tablet) 5 mg PO DAILY [facility] Last Admin: 02/20/25 08:31 Dose: 5 mg Documented By: NAYELI Gabapentin (Gabapentin 300 Mg Capsule) 900 mg PO BID@0800,1200 [facility] On Hold: 02/06/25 14:09 Last Admin: 02/06/25 13:25 Dose: Not Given Documented By: АННА Non-Admin Reason: pt lethrgic Gabapentin (Gabapentin 400 Mg Capsule) 1,200 mg PO BEDTIME [facility] On Hold: 02/06/25 14:09 Last Admin: 02/05/25 21:44 Dose: 1,200 mg Documented By: LARS Ketorolac Tromethamine (Ketorolac Tromethamine 10 Mg Tablet) 10 mg PO Q6H PRN PRN Reason: Pain, Moderate(Pain Scale 4-6) Magnesium Hydroxide (Milk Of Magnesia 30 Ml Oral.Susp) 30 ml PO DAILY PRN PRN Reason: Constipation Last Admin: 02/17/25 11:14 Dose: 30 ml Documented By: RORY Magnesium Oxide (Magnesium Oxide 400 Mg Tablet) 400 mg PO DAILY [facility] Last Admin: 02/20/25 08:31 Dose: 400 mg Documented By: NAYELI Melatonin (Melatonin 3 Mg Tablet) 6 mg PO BEDTIME PRN PRN Reason: Insomnia Last Admin: 02/19/25 20:31 Dose: 6 mg Documented By: JUAN Memantine (Memantine Hcl 5 Mg Tablet) 5 mg PO BID [facility] Last Admin: 02/20/25 08:31 Dose: 5 mg Documented By: NAYELI Methadone HCl (Methadone Hcl 20 Mg/2 Ml Oral.Conc) 40 mg PO DAILY [facility] Last Admin: 02/20/25 08:31 Dose: 40 mg Documented By: NAYELI Co-signed By: ROSSY Naloxone HCl (Naloxone Hcl Nasal 4 Mg [place]) 4 mg NOSTRILALT Q2M PRN PRN Reason: opioid overdose Naproxen (Naproxen 500 Mg Tablet) 500 mg PO BID [facility] On Hold: 02/06/25 20:57 Last Admin: 02/06/25 08:24 Dose: 500 mg Documented By: АННА Quetiapine Fumarate (Quetiapine Fumarate 100 Mg Tablet) 100 mg PO BEDTIME [facility] On Hold: 02/06/25 14:09 Last Admin: 02/05/25 21:45 Dose: 100 mg Documented By: LARS Senna/Docusate Sodium (Sennosides/Docusate Sodium Tablet) 2 tab PO BEDTIME PRN PRN Reason: Constipation Last Admin: 02/18/25 20:02 Dose: 2 tab Documented By: CASTILEnriqueta Sodium Chloride (0.9 % Sodium Chloride Flush 3 Ml Syringe) 3 ml IVFLUSH QSHIFT [facility] Last Admin: 02/20/25 08:31 Dose: 3 ml Documented By: NAYELI Tamsulosin HCl (Tamsulosin Hcl 0.4 Mg Capsule) 0.4 mg PO DAILY [facility] Last Admin: 02/20/25 08:31 Dose: 0.4 mg Documented By: NAYELI Valproic Acid (Valproic Acid 250 Mg Capsule) 250 mg PO BID [facility] Last Admin: 02/20/25 08:31 Dose: 250 mg Documented By: NAYELI Vitamin D (Cholecalciferol (Vitamin D3) 25 Mcg Tablet) 50 mcg PO DAILY [facility] Last Admin: 02/20/25 08:30 Dose: 50 mcg Documented By: NAYELI Labs 02/08/25 05:37 02/07/25 05:56 Labs: Laboratory Results - last 24 hr 02/19/25 02/20/25 20:17 07:31 POC Glucose 107 75 Assessment and Plan (1) Adult failure to thrive: Status: Acute Plan The pt is a 74-year-old male with a PMH significant for polysubstance use disorder on methadone, GERD, and mood disorder who initially presented to the ED on 01/31/2025 for weakness and question of altered mental status. Pt was brought to the hospital floor and admitted for acute metabolic encephalopathy in setting of UTI and failure to thrive. AdultFailure to thrive, -Presented to ED on 01/31/2025 for generalized weakness and possible AMS -Initial workup negative and was placed in PT/CM from 01/31-02/06 -Currently waiting on STR placement Mood disorder/question of dementia -stable and well compensated -amitriptyline, divalproex, memantine, quetiapine -continue valproic acid 250 mg b.i.d. for now, slowly wean off Polysubstance use disorder -appreciate input -too high risk to taper methadone -continue methadone Hypoglycemia intermittently, assymptomatic, daily glucose check and intervention as needed Full Code DVT Prophylaxis: Pneumatic compression due to gross hematuria with clots Continued hospitalization: failure to thrive requiring placement to STR Quality Stroke Does the patient have a stroke diagnosis?: No VTE Prior VTE?: No VTE Risk Level:: Medical - moderate - high VTE Device Contraindication: Treatment Not Indicated VTE Drug Contraindication: N/A - Med Ordered
--- NOTE | 2025-02-20 12:46 | MHC.CM.PN ---
Addendum entered by Priscilla Mcrae RN 02/20/25 14:21: Spoke w/ Sara @ [place] and provided contact number for covering hospitalist. Sara will pass along and call CM with any updates. Original Note: LM x3 for Kathy, [place] transition coordinator, to follow up on [facility]. [place] MD did not call for MD to MD on Thursday. Left contact information for covering MD today. Will continue attempts to follow up on transfer request.
--- NOTE | 2025-02-20 14:51 | MHC.SLORD ---
Speech Language Pathology Order Status: RN and MD consulted, pt remains stable with tolerating NDD2 and thin liquids, no persisting dysphagia with PO or meds in puree. SUBASSEMBLER to follow up x1 as indicated.
[2025-02-20 16:00] VITALS: BP 112/61; PULSE 70; RESP 16; TEMP 37.1; O2SAT 94
[2025-02-20 19:13] VITALS: BP 134/69; PULSE 75; RESP 16; TEMP 36.7; O2SAT 94
[2025-02-21] MEDS: 0.9 % Sodium Chloride Flush 3 ML SYRINGE IVFLUSH ×4 (00:08→20:40)
[2025-02-21 03:43] VITALS: BP 133/74; PULSE 59; RESP 18; TEMP 36.1; O2SAT 92
[2025-02-21 07:37] VITALS: BP 131/61; PULSE 70; RESP 16; TEMP 36.8; O2SAT 93
--- NOTE | 2025-02-21 08:16 | HO.PM.IMPN ---
Subjective Subjective Date of Service: 02/21/25 Interval History: Feeling fine with no new issues Physical Exam Vital Signs: Vital Signs: Last Vital Signs Temp 98.2 F 02/21/25 07:37 Pulse 70 02/21/25 07:37 Resp 16 02/21/25 07:37 BP 131/61 02/21/25 07:37 Pulse Ox 93 02/21/25 07:37 O2 Del Method Room Air 02/21/25 07:37 BMI result Body Mass Index 21.6 Const: Other: General: oriented to self,, no acute distress Resp: CTA bilateral CVS: S1,S2,RRR GI: +BS, NT, no distention Skin: No rash Neuro: motor grossly intact Psych: appropriate affect Objective Data Active Medications Acetaminophen (Acetaminophen 325 Mg Tablet) 650 mg PO Q6H PRN On Hold: 02/06/25 20:58 PRN Reason: Headache/Pain, Scale 1-10 Amitriptyline HCl (Amitriptyline Hcl 10 Mg Tablet) 20 mg PO BEDTIME [facility]ABET On Hold: 02/06/25 14:09 Last Admin: 02/05/25 21:45 Dose: 20 mg Documented By: LARS Calcium Carbonate/Cholecalciferol (Calcium + Vitamin D 250 Mg Tablet) 250 mg PO BID [facility]ISABET Last Admin: 02/20/25 20:16 Dose: 250 mg Documented By: JUAN Cephalexin HCl (Cephalexin 500 Mg Capsule) 500 mg PO QID [facility] On Hold: 02/06/25 21:08 Last Admin: 02/06/25 22:21 Dose: Not Given Documented By: DELANEY Non-Admin Reason: NPO Cyanocobalamin (Cyanocobalamin (Vitamin B-12) 1,000 Mcg Tablet) 1,000 mcg PO DAILY [facility] Last Admin: 02/20/25 08:30 Dose: 1,000 mcg Documented By: NAYELI Divalproex Sodium (Divalproex Sodium Er 250 Mg Tab.Er.24h) 1,250 mg PO BEDTIME [facility]ABET On Hold: 02/06/25 20:57 Last Admin: 02/05/25 21:45 Dose: 1,250 mg Documented By: LARS Enoxaparin Sodium (Enoxaparin Sodium 40 Mg/0.4 Ml Syringe) 40 mg SUBCUT Q24H [facility] On Hold: 02/07/25 03:13 Last Admin: 02/06/25 22:14 Dose: 40 mg Documented By: DELANEY Famotidine (Famotidine 20 Mg Tablet) 20 mg PO DAILY [facility] Last Admin: 02/20/25 08:31 Dose: 20 mg Documented By: NAYELI Finasteride (Finasteride 5 Mg Tablet) 5 mg PO DAILY [facility] Last Admin: 02/20/25 08:31 Dose: 5 mg Documented By: NAYELI Gabapentin (Gabapentin 300 Mg Capsule) 900 mg PO BID@0800,1200 [facility] On Hold: 02/06/25 14:09 Last Admin: 02/06/25 13:25 Dose: Not Given Documented By: АННА Non-Admin Reason: pt lethrgic Gabapentin (Gabapentin 400 Mg Capsule) 1,200 mg PO BEDTIME [facility] On Hold: 02/06/25 14:09 Last Admin: 02/05/25 21:44 Dose: 1,200 mg Documented By: LARS Ketorolac Tromethamine (Ketorolac Tromethamine 10 Mg Tablet) 10 mg PO Q6H PRN PRN Reason: Pain, Moderate(Pain Scale 4-6) Magnesium Hydroxide (Milk Of Magnesia 30 Ml Oral.Susp) 30 ml PO DAILY PRN PRN Reason: Constipation Last Admin: 02/17/25 11:14 Dose: 30 ml Documented By: RORY Magnesium Oxide (Magnesium Oxide 400 Mg Tablet) 400 mg PO DAILY [facility] Last Admin: 02/20/25 08:31 Dose: 400 mg Documented By: NAYELI Melatonin (Melatonin 3 Mg Tablet) 6 mg PO BEDTIME PRN PRN Reason: Insomnia Last Admin: 02/20/25 20:16 Dose: 6 mg Documented By: JUAN Memantine (Memantine Hcl 5 Mg Tablet) 5 mg PO BID [facility] Last Admin: 02/20/25 20:16 Dose: 5 mg Documented By: JUAN Methadone HCl (Methadone Hcl 20 Mg/2 Ml Oral.Conc) 40 mg PO DAILY [facility] Last Admin: 02/20/25 08:31 Dose: 40 mg Documented By: NAYELI Co-signed By: ROSSY Naloxone HCl (Naloxone Hcl Nasal 4 Mg [place]) 4 mg NOSTRILALT Q2M PRN PRN Reason: opioid overdose Naproxen (Naproxen 500 Mg Tablet) 500 mg PO BID [facility] On Hold: 02/06/25 20:57 Last Admin: 02/06/25 08:24 Dose: 500 mg Documented By: АННА Quetiapine Fumarate (Quetiapine Fumarate 100 Mg Tablet) 100 mg PO BEDTIME [facility] On Hold: 02/06/25 14:09 Last Admin: 02/05/25 21:45 Dose: 100 mg Documented By: LARS Senna/Docusate Sodium (Sennosides/Docusate Sodium Tablet) 2 tab PO BEDTIME PRN PRN Reason: Constipation Last Admin: 02/18/25 20:02 Dose: 2 tab Documented By: CASTILEnriqueta Sodium Chloride (0.9 % Sodium Chloride Flush 3 Ml Syringe) 3 ml IVFLUSH QSHIFT [facility] Last Admin: 02/21/25 00:08 Dose: 3 ml Documented By: EFRAIN Tamsulosin HCl (Tamsulosin Hcl 0.4 Mg Capsule) 0.4 mg PO DAILY [facility] Last Admin: 02/20/25 08:31 Dose: 0.4 mg Documented By: NAYELI Valproic Acid (Valproic Acid 250 Mg Capsule) 250 mg PO BID [facility] Last Admin: 02/20/25 20:16 Dose: 250 mg Documented By: JUAN Vitamin D (Cholecalciferol (Vitamin D3) 25 Mcg Tablet) 50 mcg PO DAILY [facility] Last Admin: 02/20/25 08:30 Dose: 50 mcg Documented By: NAYELI Labs 02/08/25 05:37 02/07/25 05:56 Labs: Laboratory Results - last 24 hr 02/21/25 08:08 POC Glucose 92 Assessment and Plan (1) Adult failure to thrive: Status: Acute Plan The pt is a 74-year-old male with a PMH significant for polysubstance use disorder on methadone, GERD, and mood disorder who initially presented to the ED on 01/31/2025 for weakness and question of altered mental status. Pt was brought to the hospital floor and admitted for acute metabolic encephalopathy in setting of UTI and failure to thrive. AdultFailure to thrive, -Presented to ED on 01/31/2025 for generalized weakness and possible AMS -Initial workup negative and was placed in PT/ from 01/31-02/06 -Currently waiting on STR placement Mood disorder/question of dementia -stable and well compensated -amitriptyline, divalproex, memantine, quetiapine -continue valproic acid 250 mg b.i.d. for now, slowly wean off Polysubstance use disorder -appreciate input -too high risk to taper methadone -continue methadone Hypoglycemia intermittently, assymptomatic, daily glucose check and intervention as needed Full Code DVT Prophylaxis: Pneumatic compression due to gross hematuria with clots Continued hospitalization: failure to thrive requiring placement to STR Quality Stroke Does the patient have a stroke diagnosis?: No VTE Prior VTE?: No VTE Risk Level:: Medical - moderate - high VTE Device Contraindication: Treatment Not Indicated VTE Drug Contraindication: N/A - Med Ordered
[2025-02-21] MEDS: Calcium + Vitamin D 250 MG TABLET PO ×2 (09:09→20:34)
[2025-02-21] MEDS: methADONE HCl 20 MG/2 ML ORAL.CONC 40 MG PO (09:10)
--- NOTE | 2025-02-21 14:44 | MHC.CM.PN ---
Addendum entered by Priscilla Mcrae RN 02/21/25 15:24: Rec'd call from Juanito @ [place] [phone] with the [facility] program ([place] supportive housing). 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 Juanito reports STORE ADMINISTRATIVE ASSISTANT services were dc'd, as patient frequently declined and patient or son were actively using drugs in the home. However, can be reinstated if patient dc's home, with potential to increase hours. Juanito will also advocate for placement at [place] SNF and will communicate w/ area coordinator. Original Note: Patient remains medically cleared for dc. [facility]. Barriers include methadone and [employer] insurance. Patient also has [facility] listed, verified w/ financial this is only health safety net, does not cover STR. Communicating w/ [place] area coordinator, Kathy ([phone]), throughout the day, who is unable to give a definite update and is unsure if [facility] is able to accept patient. Kathy requested two forms be filled out. CM completed and faxed back with updated clinicals to [phone]. She will follow up with her nurse associate program manager for more information. Updated patient and son, Fran. Per Fran, he would like for patient to get rehab, but if [place] facility does not accept patient he can take patient home w/ resumption of [facility] services. He is aware patient is not at baseline and requiring 1-2 assist at times. He reports that patient has a [place] CM Cheyenne Lucero [phone]. CM LM to discuss additional supports in the home. DP: [facility] [employer] [facility] [employer] w/ resumption of [facility], MOW, and request for [place] CM to coordinate more home services.
[2025-02-21 16:07] VITALS: BP 151/65; PULSE 70; RESP 18; TEMP 36.4; O2SAT 94
[2025-02-21 19:17] VITALS: BP 106/80; PULSE 79; RESP 18; TEMP 37.1; O2SAT 97
[2025-02-22 03:52] VITALS: BP 115/77; PULSE 67; RESP 18; TEMP 36.6; O2SAT 96
[2025-02-22 07:29] VITALS: BP 123/78; PULSE 71; RESP 14; TEMP 36.5; O2SAT 98
[2025-02-22 08:07] LABS: Glucose, Whole Blood 81 mg/dL (60-115)
[2025-02-22] MEDS: methADONE HCl 20 MG/2 ML ORAL.CONC 40 MG PO (08:21)
[2025-02-22] MEDS: Calcium + Vitamin D 250 MG TABLET PO ×2 (08:22→20:48)
[2025-02-22] MEDS: 0.9 % Sodium Chloride Flush 3 ML SYRINGE IVFLUSH ×3 (08:23→20:48)
--- NOTE | 2025-02-22 09:48 | MHC.CM.PN ---
Addendum entered by Priscilla Mcrae RN 02/22/25 15:10: Per Kathy at [place] patient's case is being screened by bed management. No decision at this time. CM will continue to follow. Original Note: Per Kathy at [place] she is submitting another application for STR placement for patient. She will follow up with this CM today.
--- NOTE | 2025-02-22 15:19 | MHC.SL.SWA ---
Speech Pathologist Impression: Adequate oropharyngeal swallow function Risk of Aspiration Due to: Dysphasia Diet Status: Continue on ground mechanical (NDD2) with THIN liquids, pills whole or crushed in puree. Alternate liquids and solids (assist patient with this) Cue patient to swallow before adding more food to mouth. Liquid Consistency and Strategies for Safe Swallow: Liquid Intake Recommendation: Thin Liquid Intake Strategies: Small Sips No Straws Solid Food Consistency: Dietary Recommendations: Grnd/Mech Altered (NDD2) Additional Modifications to Solid Foods: Oral Medication Intake: Crushed with Puree Please contact the pharmacy regarding appropriate crushable or liquid drug formulations that are available whenever modified delivery is recommended. Compensatory Strategies and Precautions to be Taken for Safe Swallow: Sitting Upright (90 deg) No Straw Alternate Liquids/Solids Oral Check Supervision While Eating and Drinking for Safe Swallow: Intermittent Supervision Foods to Avoid: Tough, difficult to chew solids. Swallowing Recommended Treatments: Compens. Strategy Educat. Recommendation for Speech: Inpatient Speech Therapy Comment: Pt seen for dysphagia treatment, pt is tolerating diet as ordered without overt s/s of aspiration. Pt expressed satisfaction with current diet. RN and MD consulted. No further TEST DESKMAN tx indicated at this time. TEST DESKMAN signing off. Diet to remain modified while pt in hospital, TEST DESKMAN at next setting to re-assess if pt requests diet advancement. Frequency/Duration: Date Range for Service Req: Timeline to reassess: Computer Systems Software Engineer Clinican/Clinical Fellow: No Supervisory Statement: I have reviewed and agree with the student/clinical fellow's documentation: N/A Speech Language Pathologist: Rosa Daniel M.S., CCC-TEST DESKMAN
[2025-02-22 15:26] VITALS: BP 105/62; PULSE 70; RESP 16; TEMP 36.3; O2SAT 96
[2025-02-22 19:08] VITALS: BP 115/61; PULSE 70; RESP 16; TEMP 36.3; O2SAT 98
[2025-02-23 03:11] VITALS: BP 132/70; PULSE 56; RESP 18; TEMP 36.1; O2SAT 95
[2025-02-23] MEDS: Calcium + Vitamin D 250 MG TABLET PO ×2 (07:35→19:47)
[2025-02-23] MEDS: methADONE HCl 20 MG/2 ML ORAL.CONC 40 MG PO (07:36)
[2025-02-23] MEDS: 0.9 % Sodium Chloride Flush 3 ML SYRINGE IVFLUSH ×3 (07:44→19:48)
[2025-02-23 08:20] LABS: Glucose, Whole Blood 78 mg/dL (60-115)
[2025-02-23 08:22] VITALS: BP 105/60; PULSE 61; RESP 12; TEMP 36.6; O2SAT 94
--- NOTE | 2025-02-23 09:48 | MHC.CM.PN ---
Rec'd call from Gisselle Guzman CM @ [place] who is reviewing patient for STR placement. Gisselle requested additional clinicals, which were faxed. She reports that she will not be reviewing today, and also shared concerns that patient will require LTC. This CM reiterated that patient's plan is to return home w/ previous supports including son/antitank assault gunner, MOW, and services through [place] Housing Support program, which can increase services if needed. Gisselle Guzman
--- NOTE | 2025-02-23 09:55 | P.PNIM_ITS ---
Subjective Subjective Date of Service: 02/23/25 Interval History: Has no new issues, feels fine Physical Exam 2 Vital Signs: Vital Signs: Last Vital Signs Temp 97.8 F 02/23/25 08:22 Pulse 61 02/23/25 08:22 Resp 12 02/23/25 08:22 BP 105/60 02/23/25 08:22 Pulse Ox 94 02/23/25 08:22 O2 Del Method Room Air 02/23/25 08:22 BMI result Body Mass Index 21.6 Const: Other: General: oriented to self,, no acute distress Resp: CTA bilateral CVS: S1,S2,RRR GI: +BS, NT, no distention Skin: No rash Neuro: motor grossly intact Psych: appropriate affect Objective Data Active Medications Acetaminophen (Acetaminophen 325 Mg Tablet) 650 mg PO Q6H PRN On Hold: 02/06/25 20:58 PRN Reason: Headache/Pain, Scale 1-10 Amitriptyline HCl (Amitriptyline Hcl 10 Mg Tablet) 20 mg PO BEDTIME [facility] On Hold: 02/06/25 14:09 Last Admin: 02/05/25 21:45 Dose: 20 mg Documented By: LARS Calcium Carbonate/Cholecalciferol (Calcium + Vitamin D 250 Mg Tablet) 250 mg PO BID [facility]ABET Last Admin: 02/23/25 07:35 Dose: 250 mg Documented By: ELVIRA Cephalexin HCl (Cephalexin 500 Mg Capsule) 500 mg PO QID [facility] On Hold: 02/06/25 21:08 Last Admin: 02/06/25 22:21 Dose: Not Given Documented By: DELANEY Non-Admin Reason: NPO Cyanocobalamin (Cyanocobalamin (Vitamin B-12) 1,000 Mcg Tablet) 1,000 mcg PO DAILY [facility] Last Admin: 02/23/25 07:35 Dose: 1,000 mcg Documented By: ELVIRA Divalproex Sodium (Divalproex Sodium Er 250 Mg Tab.Er.24h) 1,250 mg PO BEDTIME [facility] On Hold: 02/06/25 20:57 Last Admin: 02/05/25 21:45 Dose: 1,250 mg Documented By: LARS Enoxaparin Sodium (Enoxaparin Sodium 40 Mg/0.4 Ml Syringe) 40 mg SUBCUT Q24H [facility]ET On Hold: 02/07/25 03:13 Last Admin: 02/06/25 22:14 Dose: 40 mg Documented By: LAFLAMNelly Famotidine (Famotidine 20 Mg Tablet) 20 mg PO DAILY [facility] Last Admin: 02/23/25 07:35 Dose: 20 mg Documented By: ELVIRA Finasteride (Finasteride 5 Mg Tablet) 5 mg PO DAILY [facility] Last Admin: 02/23/25 07:36 Dose: 5 mg Documented By: ELVIRA Gabapentin (Gabapentin 300 Mg Capsule) 900 mg PO BID@0800,1200 [facility] On Hold: 02/06/25 14:09 Last Admin: 02/06/25 13:25 Dose: Not Given Documented By: АННА Non-Admin Reason: pt lethrgic Gabapentin (Gabapentin 400 Mg Capsule) 1,200 mg PO BEDTIME [facility] On Hold: 02/06/25 14:09 Last Admin: 02/05/25 21:44 Dose: 1,200 mg Documented By: LARS Ketorolac Tromethamine (Ketorolac Tromethamine 10 Mg Tablet) 10 mg PO Q6H PRN PRN Reason: Pain, Moderate(Pain Scale 4-6) Last Admin: 02/22/25 20:48 Dose: 10 mg Documented By: AUGUSTUS Magnesium Hydroxide (Milk Of Magnesia 30 Ml Oral.Susp) 30 ml PO DAILY PRN PRN Reason: Constipation Last Admin: 02/17/25 11:14 Dose: 30 ml Documented By: MOHAMER Magnesium Oxide (Magnesium Oxide 400 Mg Tablet) 400 mg PO DAILY [facility] Last Admin: 02/23/25 07:35 Dose: 400 mg Documented By: ELVIRA Melatonin (Melatonin 3 Mg Tablet) 6 mg PO BEDTIME PRN PRN Reason: Insomnia Last Admin: 02/22/25 20:48 Dose: 6 mg Documented By: AUGUSTUS Memantine (Memantine Hcl 5 Mg Tablet) 5 mg PO BID [facility] Last Admin: 02/23/25 07:35 Dose: 5 mg Documented By: ELVIRA Methadone HCl (Methadone Hcl 20 Mg/2 Ml Oral.Conc) 40 mg PO DAILY [facility] Last Admin: 02/23/25 07:36 Dose: 40 mg Documented By: ELVIRA Co-signed By: FRANKLIN Naloxone HCl (Naloxone Hcl Nasal 4 Mg [place]) 4 mg NOSTRILALT Q2M PRN PRN Reason: opioid overdose Naproxen (Naproxen 500 Mg Tablet) 500 mg PO BID [facility] On Hold: 02/06/25 20:57 Last Admin: 02/06/25 08:24 Dose: 500 mg Documented By: АННА Quetiapine Fumarate (Quetiapine Fumarate 100 Mg Tablet) 100 mg PO BEDTIME [facility] On Hold: 02/06/25 14:09 Last Admin: 02/05/25 21:45 Dose: 100 mg Documented By: LARS Senna/Docusate Sodium (Sennosides/Docusate Sodium Tablet) 2 tab PO BEDTIME PRN PRN Reason: Constipation Last Admin: 02/18/25 20:02 Dose: 2 tab Documented By: CASTILEnriqueta Sodium Chloride (0.9 % Sodium Chloride Flush 3 Ml Syringe) 3 ml IVFLUSH QSHIFT [facility] Last Admin: 02/23/25 07:44 Dose: 3 ml Documented By: ELVIRA Tamsulosin HCl (Tamsulosin Hcl 0.4 Mg Capsule) 0.4 mg PO DAILY [facility] Last Admin: 02/23/25 07:35 Dose: 0.4 mg Documented By: ELVIRA Valproic Acid (Valproic Acid 250 Mg Capsule) 250 mg PO BID [facility] Last Admin: 02/23/25 07:35 Dose: 250 mg Documented By: ELVIRA Vitamin D (Cholecalciferol (Vitamin D3) 25 Mcg Tablet) 50 mcg PO DAILY [facility] Last Admin: 02/23/25 07:35 Dose: 50 mcg Documented By: ELVIRA Labs 02/08/25 05:37 02/07/25 05:56 Labs: Laboratory Results - last 24 hr 02/23/25 08:13 POC Glucose 78 Assessment and Plan (1) Adult failure to thrive: Status: Acute Plan The pt is a 74-year-old male with a PMH significant for polysubstance use disorder on methadone, GERD, and mood disorder who initially presented to the ED on 01/31/2025 for weakness and question of altered mental status. Pt was brought to the hospital floor and admitted for acute metabolic encephalopathy in setting of UTI and failure to thrive. No new issues, awaiting placement Adult Failure to thrive, -Presented to ED on 01/31/2025 for generalized weakness and possible AMS -Initial workup negative and was placed in PT/CM from 01/31-02/06 -Currently waiting on STR placement Mood disorder/question of dementia -stable and well compensated -amitriptyline, divalproex, memantine, quetiapine -continue valproic acid 250 mg b.i.d. for now, slowly wean off Polysubstance use disorder -appreciate input -too high risk to taper methadone -continue methadone Hypoglycemia intermittently, assymptomatic, daily glucose check and intervention as needed check routine labs Full Code DVT Prophylaxis: Pneumatic compression due to gross hematuria with clots Continued hospitalization: failure to thrive requiring placement to STR Quality Stroke Does the patient have a stroke diagnosis?: No VTE Prior VTE?: No VTE Risk Level:: Medical - moderate - high VTE Device Contraindication: Treatment Not Indicated VTE Drug Contraindication: N/A - Med Ordered
--- NOTE | 2025-02-23 14:43 | PC.NURSE ---
Pt refused blood draw multiple times, MD Tillman made aware. No new orders at this time
[2025-02-23 15:31] LABS: Hematocrit 32.3 % (42.0-52.0); Hemoglobin 10.4 g/dl (14.0-18.0); Mean Corpuscular HGB Conc 32.2 g/dl (31.0-36.0); Mean Corpuscular Hemoglobin 27.0 pg (27.0-33.0); Mean Corpuscular Volume 83.9 fL (80.0-98.0); NRBC Abs Auto 0.000 X10*3/uL (0.0-0.012); NRBC Pct Auto 0.0 /100WBC (0.0-0.2); Platelet Count 236 X10*3/uL (160-400); Red Blood Count 3.85 X10*6/uL (4.60-5.80); White Blood Count 7.4 X10*3/uL (4.8-10.8)
[2025-02-23 15:43] LABS: Anion Gap 10 (12-20); Blood Urea Nitrogen 21 mg/dL (9-16); Calcium 9.6 mg/dL (8.4-10.2); Carbon Dioxide 30 mmol/L (22-29); Chloride 97 mmol/L (96-108); Creatinine Clr Calc Pharmacy 61.1; Estimated Glomerular Filt Rate > 60; Potassium 4.4 mmol/L (3.3-5.1); Sodium 133 mmol/L (135-145)
[2025-02-23 15:58] VITALS: BP 105/55; PULSE 65; RESP 18; TEMP 37; O2SAT 92
[2025-02-23 19:15] VITALS: BP 106/69; PULSE 68; RESP 18; TEMP 36.2; O2SAT 96
[2025-02-24] VITALS (9 sets, daily range): BP systolic 97–142; BP diastolic 59–80; PULSE 56–93; RESP 16–19; TEMP 35.9–36.9; O2SAT 95–97
[2025-02-24] MEDS: Calcium + Vitamin D 250 MG TABLET PO ×2 (07:09→20:16)
[2025-02-24] MEDS: 0.9 % Sodium Chloride Flush 3 ML SYRINGE IVFLUSH ×3 (07:11→20:16)
[2025-02-24] MEDS: methADONE HCl 20 MG/2 ML ORAL.CONC 40 MG PO (07:11)
--- NOTE | 2025-02-24 08:53 | MHC.CM.PN ---
Addendum entered by Priscilla Mcrae RN 02/24/25 15:28: No bed offers at this time. 4 of SNF's listed below have declined, awaiting responses from [facility], [facility], and [facility]. Discussed w/ son, Fran. If no bed offer by Thursday plan to dc home w/ family support, resumption of [facility] program support. Fran is in agreement. CM will continue to follow. Addendum entered by Priscilla Mcrae RN 02/24/25 14:12: Per Kathy, [facility] at [facility] the [facility] Referrals/updates sent to all. Awaiting response. Addendum entered by Priscilla Mcrae RN 02/24/25 10:52: Per Kathy, patient was declined for [place] @ [place] [facility], as facility felt patient needs LTC despite this CM providing in depth review of plan to return home w/ supports. Kathy reports she will apply for a waiver for 30 days of rehab at other [place] contracted SNF. She will update this CM by end of day. Original Note: This CM called FRANK Chavez coordinator, for update. Per Kathy, patient's case will be reviewed today and she will update CM by end of day.
[2025-02-24 08:56] LABS: Glucose, Whole Blood 84 mg/dL (60-115)
--- NOTE | 2025-02-24 12:49 | PC.NURSE ---
PT notified this RN that during PT exercises pt became pale, hypotensive, and less alert, per PT attempts were made to get repeated BP without success. This RN went into assess pt, at this time pt in bed, alert per baseline, talking in complete sentences. VS 99/60, HR 70, and o2 93% on room air. [facility] made aware via tiger text, no new orders at this time. All safety measures in place including camera.
[2025-02-25 03:14] VITALS: BP 114/68; PULSE 60; RESP 17; TEMP 35.6; O2SAT 95
[2025-02-25 07:23] VITALS: BP 128/56; PULSE 62; RESP 18; TEMP 36.4; O2SAT 93
[2025-02-25 07:39] LABS: Glucose, Whole Blood 80 mg/dL (60-115)
[2025-02-25] MEDS: Calcium + Vitamin D 250 MG TABLET PO ×2 (08:22→20:01)
[2025-02-25] MEDS: 0.9 % Sodium Chloride Flush 3 ML SYRINGE IVFLUSH ×3 (08:22→20:01)
[2025-02-25] MEDS: methADONE HCl 20 MG/2 ML ORAL.CONC 40 MG PO (08:23)
--- NOTE | 2025-02-25 10:30 | HO.PM.IMPN ---
Subjective Subjective Date of Service: 02/25/25 Interval History: Comfortable with no new issues Physical Exam Vital Signs: Vital Signs: Last Vital Signs Temp 97.6 F 02/25/25 07:23 Pulse 62 02/25/25 07:23 Resp 18 02/25/25 07:23 BP 128/56 L 02/25/25 07:23 Pulse Ox 93 02/25/25 07:23 O2 Del Method Room Air 02/25/25 07:23 BMI result Body Mass Index 21.6 Const: Other: General: oriented to self,, no acute distress Resp: CTA bilateral CVS: S1,S2,RRR GI: +BS, NT, no distention Skin: No rash Neuro: motor grossly intact Psych: appropriate affect Objective Data Active Medications Acetaminophen (Acetaminophen 325 Mg Tablet) 650 mg PO Q6H PRN On Hold: 02/06/25 20:58 PRN Reason: Headache/Pain, Scale 1-10 Amitriptyline HCl (Amitriptyline Hcl 10 Mg Tablet) 20 mg PO BEDTIME [facility] On Hold: 02/06/25 14:09 Last Admin: 02/05/25 21:45 Dose: 20 mg Documented By: LARS Calcium Carbonate/Cholecalciferol (Calcium + Vitamin D 250 Mg Tablet) 250 mg PO BID [facility] Last Admin: 02/25/25 08:22 Dose: 250 mg Documented By: YAAKOV Cephalexin HCl (Cephalexin 500 Mg Capsule) 500 mg PO QID [facility]ET On Hold: 02/06/25 21:08 Last Admin: 02/06/25 22:21 Dose: Not Given Documented By: DELANEY Non-Admin Reason: NPO Cyanocobalamin (Cyanocobalamin (Vitamin B-12) 1,000 Mcg Tablet) 1,000 mcg PO DAILY [facility] Last Admin: 02/25/25 08:22 Dose: 1,000 mcg Documented By: YAAKOV Divalproex Sodium (Divalproex Sodium Er 250 Mg Tab.Er.24h) 1,250 mg PO BEDTIME [facility]ABET On Hold: 02/06/25 20:57 Last Admin: 02/05/25 21:45 Dose: 1,250 mg Documented By: LARS Enoxaparin Sodium (Enoxaparin Sodium 40 Mg/0.4 Ml Syringe) 40 mg SUBCUT Q24H [facility]ABET On Hold: 02/07/25 03:13 Last Admin: 02/06/25 22:14 Dose: 40 mg Documented By: LAFLAMC Famotidine (Famotidine 20 Mg Tablet) 20 mg PO DAILY [facility] Last Admin: 02/25/25 08:22 Dose: 20 mg Documented By: YAAKOV Finasteride (Finasteride 5 Mg Tablet) 5 mg PO DAILY [facility] Last Admin: 02/25/25 08:22 Dose: 5 mg Documented By: YAAKOV Gabapentin (Gabapentin 300 Mg Capsule) 900 mg PO BID@0800,1200 [facility] On Hold: 02/06/25 14:09 Last Admin: 02/06/25 13:25 Dose: Not Given Documented By: АННА Non-Admin Reason: pt lethrgic Gabapentin (Gabapentin 400 Mg Capsule) 1,200 mg PO BEDTIME [facility] On Hold: 02/06/25 14:09 Last Admin: 02/05/25 21:44 Dose: 1,200 mg Documented By: LARS Ketorolac Tromethamine (Ketorolac Tromethamine 10 Mg Tablet) 10 mg PO Q6H PRN PRN Reason: Pain, Moderate(Pain Scale 4-6) Last Admin: 02/22/25 20:48 Dose: 10 mg Documented By: LEFEBFRANK Magnesium Hydroxide (Milk Of Magnesia 30 Ml Oral.Susp) 30 ml PO DAILY PRN PRN Reason: Constipation Last Admin: 02/17/25 11:14 Dose: 30 ml Documented By: MOHAMER Magnesium Oxide (Magnesium Oxide 400 Mg Tablet) 400 mg PO DAILY [facility] Last Admin: 02/25/25 08:22 Dose: 400 mg Documented By: YAAKOV Melatonin (Melatonin 3 Mg Tablet) 6 mg PO BEDTIME PRN PRN Reason: Insomnia Last Admin: 02/23/25 19:47 Dose: 6 mg Documented By: NATAL Memantine (Memantine Hcl 5 Mg Tablet) 5 mg PO BID [facility] Last Admin: 02/25/25 08:22 Dose: 5 mg Documented By: YAAKOV Methadone HCl (Methadone Hcl 20 Mg/2 Ml Oral.Conc) 40 mg PO DAILY [facility] Last Admin: 02/25/25 08:23 Dose: 40 mg Documented By: YAAKOV Co-signed By: WHIT Naloxone HCl (Naloxone Hcl Nasal 4 Mg [place]) 4 mg NOSTRILALT Q2M PRN PRN Reason: opioid overdose Naproxen (Naproxen 500 Mg Tablet) 500 mg PO BID [facility] On Hold: 02/06/25 20:57 Last Admin: 02/06/25 08:24 Dose: 500 mg Documented By: АННА Quetiapine Fumarate (Quetiapine Fumarate 100 Mg Tablet) 100 mg PO BEDTIME [facility] On Hold: 02/06/25 14:09 Last Admin: 02/05/25 21:45 Dose: 100 mg Documented By: LARS Senna/Docusate Sodium (Sennosides/Docusate Sodium Tablet) 2 tab PO BEDTIME PRN PRN Reason: Constipation Last Admin: 02/18/25 20:02 Dose: 2 tab Documented By: CASTILEnriqueta Sodium Chloride (0.9 % Sodium Chloride Flush 3 Ml Syringe) 3 ml IVFLUSH QSHIFT [facility] Last Admin: 02/25/25 08:22 Dose: 3 ml Documented By: YAAKOV Tamsulosin HCl (Tamsulosin Hcl 0.4 Mg Capsule) 0.4 mg PO DAILY [facility] Last Admin: 02/25/25 08:22 Dose: 0.4 mg Documented By: YAAKOV Valproic Acid (Valproic Acid 250 Mg Capsule) 250 mg PO BID [facility] Last Admin: 02/25/25 08:22 Dose: 250 mg Documented By: YAAKOV Vitamin D (Cholecalciferol (Vitamin D3) 25 Mcg Tablet) 50 mcg PO DAILY [facility] Last Admin: 02/25/25 08:22 Dose: 50 mcg Documented By: YAAKOV Labs 02/23/25 15:14 02/23/25 15:14 Labs: Laboratory Results - last 24 hr 02/25/25 07:26 POC Glucose 80 Assessment and Plan (1) Adult failure to thrive: Status: Acute Plan The pt is a 74-year-old male with a PMH significant for polysubstance use disorder on methadone, GERD, and mood disorder who initially presented to the ED on 01/31/2025 for weakness and question of altered mental status. Pt was brought to the hospital floor and admitted for acute metabolic encephalopathy in setting of UTI and failure to thrive. No new issues, awaiting placement Adult Failure to thrive, -Presented to ED on 01/31/2025 for generalized weakness and possible AMS -Initial workup negative and was placed in PT/CM from 01/31-02/06 -Currently waiting on STR placement Mood disorder/question of dementia -stable and well compensated -amitriptyline, divalproex, memantine, quetiapine -continue valproic acid 250 mg b.i.d. for now, slowly wean off Polysubstance use disorder -appreciate input -too high risk to taper methadone -continue methadone Hypoglycemia intermittently, assymptomatic, daily glucose check and intervention as needed check routine labs Full Code DVT Prophylaxis: Pneumatic compression due to gross hematuria with clots Continued hospitalization: failure to thrive requiring placement to STR Quality Stroke Does the patient have a stroke diagnosis?: No VTE Prior VTE?: No VTE Risk Level:: Medical - moderate - high VTE Device Contraindication: Treatment Not Indicated VTE Drug Contraindication: N/A - Med Ordered
[2025-02-25 15:25] VITALS: BP 108/66; PULSE 87; RESP 18; TEMP 36.2; O2SAT 93
--- NOTE | 2025-02-25 16:56 | PC.NURSE ---
Pt doing well, able to make needs known, participate with care. Per CM plan to d/c home Thursday if no SNF will accept.
[2025-02-25 19:42] VITALS: BP 115/69; PULSE 76; RESP 18; TEMP 36.4; O2SAT 96
[2025-02-26 03:59] VITALS: BP 104/58; PULSE 65; RESP 16; TEMP 36.6; O2SAT 95
[2025-02-26 07:43] LABS: Glucose, Whole Blood 89 mg/dL (60-115)
[2025-02-26 07:48] VITALS: BP 119/88; PULSE 61; RESP 16; TEMP 36.4; O2SAT 93
[2025-02-26] MEDS: methADONE HCl 20 MG/2 ML ORAL.CONC 40 MG PO (08:01)
[2025-02-26] MEDS: Calcium + Vitamin D 250 MG TABLET PO ×2 (08:01→21:12)
[2025-02-26] MEDS: 0.9 % Sodium Chloride Flush 3 ML SYRINGE IVFLUSH ×3 (08:01→21:12)
--- NOTE | 2025-02-26 10:42 | P.PNIM_ITS ---
Subjective Subjective Date of Service: 02/26/25 Interval History: Pleasant, no complaint and no new issue per nursing Physical Exam 2 Vital Signs: Vital Signs: Last Vital Signs Temp 97.5 F 02/26/25 07:48 Pulse 61 02/26/25 07:48 Resp 16 02/26/25 07:48 BP 119/88 02/26/25 07:48 Pulse Ox 93 02/26/25 07:48 O2 Del Method Room Air 02/26/25 07:48 BMI result Body Mass Index 21.6 Const: Other: General: oriented to self,, no acute distress Resp: CTA bilateral CVS: S1,S2,RRR GI: +BS, NT, no distention Skin: No rash Neuro: motor grossly intact Psych: appropriate affect Objective Data Active Medications Acetaminophen (Acetaminophen 325 Mg Tablet) 650 mg PO Q6H PRN On Hold: 02/06/25 20:58 PRN Reason: Headache/Pain, Scale 1-10 Amitriptyline HCl (Amitriptyline Hcl 10 Mg Tablet) 20 mg PO BEDTIME [facility] On Hold: 02/06/25 14:09 Last Admin: 02/05/25 21:45 Dose: 20 mg Documented By: LARS Calcium Carbonate/Cholecalciferol (Calcium + Vitamin D 250 Mg Tablet) 250 mg PO BID [facility] Last Admin: 02/26/25 08:01 Dose: 250 mg Documented By: YAAKOV Cephalexin HCl (Cephalexin 500 Mg Capsule) 500 mg PO QID [facility] On Hold: 02/06/25 21:08 Last Admin: 02/06/25 22:21 Dose: Not Given Documented By: DELANEY Non-Admin Reason: NPO Cyanocobalamin (Cyanocobalamin (Vitamin B-12) 1,000 Mcg Tablet) 1,000 mcg PO DAILY [facility] Last Admin: 02/26/25 08:01 Dose: 1,000 mcg Documented By: YAAKOV Divalproex Sodium (Divalproex Sodium Er 250 Mg Tab.Er.24h) 1,250 mg PO BEDTIME [facility] On Hold: 02/06/25 20:57 Last Admin: 02/05/25 21:45 Dose: 1,250 mg Documented By: LARS Enoxaparin Sodium (Enoxaparin Sodium 40 Mg/0.4 Ml Syringe) 40 mg SUBCUT Q24H [facility] On Hold: 02/07/25 03:13 Last Admin: 02/06/25 22:14 Dose: 40 mg Documented By: DELANEY Famotidine (Famotidine 20 Mg Tablet) 20 mg PO DAILY [facility] Last Admin: 02/26/25 08:01 Dose: 20 mg Documented By: YAAKOV Finasteride (Finasteride 5 Mg Tablet) 5 mg PO DAILY [facility] Last Admin: 02/26/25 08:01 Dose: 5 mg Documented By: YAAKOV Gabapentin (Gabapentin 300 Mg Capsule) 900 mg PO BID@0800,1200 [facility] On Hold: 02/06/25 14:09 Last Admin: 02/06/25 13:25 Dose: Not Given Documented By: АННА Non-Admin Reason: pt lethrgic Gabapentin (Gabapentin 400 Mg Capsule) 1,200 mg PO BEDTIME [facility] On Hold: 02/06/25 14:09 Last Admin: 02/05/25 21:44 Dose: 1,200 mg Documented By: LARS Ketorolac Tromethamine (Ketorolac Tromethamine 10 Mg Tablet) 10 mg PO Q6H PRN PRN Reason: Pain, Moderate(Pain Scale 4-6) Last Admin: 02/22/25 20:48 Dose: 10 mg Documented By: LEFVÍCTOR Magnesium Hydroxide (Milk Of Magnesia 30 Ml Oral.Susp) 30 ml PO DAILY PRN PRN Reason: Constipation Last Admin: 02/17/25 11:14 Dose: 30 ml Documented By: MOHAMER Magnesium Oxide (Magnesium Oxide 400 Mg Tablet) 400 mg PO DAILY [facility] Last Admin: 02/26/25 08:01 Dose: 400 mg Documented By: YAAKOV Melatonin (Melatonin 3 Mg Tablet) 6 mg PO BEDTIME PRN PRN Reason: Insomnia Last Admin: 02/23/25 19:47 Dose: 6 mg Documented By: JUAN Memantine (Memantine Hcl 5 Mg Tablet) 5 mg PO BID [facility] Last Admin: 02/26/25 08:01 Dose: 5 mg Documented By: YAAKOV Methadone HCl (Methadone Hcl 20 Mg/2 Ml Oral.Conc) 40 mg PO DAILY [facility] Last Admin: 02/26/25 08:01 Dose: 40 mg Documented By: YAAKOV Co-signed By: GREGG Naloxone HCl (Naloxone Hcl Nasal 4 Mg [place]) 4 mg NOSTRILALT Q2M PRN PRN Reason: opioid overdose Naproxen (Naproxen 500 Mg Tablet) 500 mg PO BID [facility] On Hold: 02/06/25 20:57 Last Admin: 02/06/25 08:24 Dose: 500 mg Documented By: АННА Quetiapine Fumarate (Quetiapine Fumarate 100 Mg Tablet) 100 mg PO BEDTIME [facility] On Hold: 02/06/25 14:09 Last Admin: 02/05/25 21:45 Dose: 100 mg Documented By: LARS Senna/Docusate Sodium (Sennosides/Docusate Sodium Tablet) 2 tab PO BEDTIME PRN PRN Reason: Constipation Last Admin: 02/18/25 20:02 Dose: 2 tab Documented By: CASTILEnriqueta Sodium Chloride (0.9 % Sodium Chloride Flush 3 Ml Syringe) 3 ml IVFLUSH QSHIFT [facility] Last Admin: 02/26/25 08:01 Dose: 3 ml Documented By: YAAKOV Tamsulosin HCl (Tamsulosin Hcl 0.4 Mg Capsule) 0.4 mg PO DAILY [facility] Last Admin: 02/26/25 08:01 Dose: 0.4 mg Documented By: YAAKOV Valproic Acid (Valproic Acid 250 Mg Capsule) 250 mg PO BID [facility] Last Admin: 02/26/25 08:01 Dose: 250 mg Documented By: YAAKOV Vitamin D (Cholecalciferol (Vitamin D3) 25 Mcg Tablet) 50 mcg PO DAILY [facility] Last Admin: 02/26/25 08:01 Dose: 50 mcg Documented By: YAAKOV Labs 02/23/25 15:14 02/23/25 15:14 Labs: Laboratory Results - last 24 hr 02/26/25 07:38 POC Glucose 89 Assessment and Plan (1) Adult failure to thrive: Status: Acute Plan The pt is a 74-year-old male with a PMH significant for polysubstance use disorder on methadone, GERD, and mood disorder who initially presented to the ED on 01/31/2025 for weakness and question of altered mental status. Pt was brought to the hospital floor and admitted for acute metabolic encephalopathy in setting of UTI and failure to thrive. No new issues, awaiting placement Adult Failure to thrive, -Presented to ED on 01/31/2025 for generalized weakness and possible AMS -Initial workup negative and was placed in PT/CM from 01/31-02/06 -Currently waiting on STR placement Mood disorder/question of dementia -stable and well compensated -amitriptyline, divalproex, memantine, quetiapine -continue valproic acid 250 mg b.i.d. for now, slowly wean off Polysubstance use disorder -appreciate input -too high risk to taper methadone -continue methadone Hypoglycemia intermittently, assymptomatic, daily glucose check and intervention as needed check routine labs Full Code DVT Prophylaxis: Pneumatic compression due to gross hematuria with clots Continued hospitalization: failure to thrive requiring placement to STR Quality Stroke Does the patient have a stroke diagnosis?: No VTE Prior VTE?: No VTE Risk Level:: Medical - moderate - high VTE Device Contraindication: Treatment Not Indicated VTE Drug Contraindication: N/A - Med Ordered
[2025-02-26 11:42] LABS: Glucose, Whole Blood 109 mg/dL (60-115)
[2025-02-26 15:33] VITALS: BP 105/63; PULSE 65; RESP 18; TEMP 36.5; O2SAT 94
[2025-02-26 20:00] VITALS: BP 128/93; PULSE 91; RESP 18; TEMP 36.3; O2SAT 96
[2025-02-27 03:20] VITALS: BP 111/68; PULSE 56; RESP 16; TEMP 36.1; O2SAT 97
[2025-02-27 07:28] VITALS: BP 128/61; PULSE 52; RESP 14; TEMP 36.4; O2SAT 98
[2025-02-27] MEDS: methADONE HCl 20 MG/2 ML ORAL.CONC 40 MG PO (07:48)
[2025-02-27] MEDS: Calcium + Vitamin D 250 MG TABLET PO (07:48)
[2025-02-27] MEDS: 0.9 % Sodium Chloride Flush 3 ML SYRINGE IVFLUSH (07:49)
[2025-02-27 08:02] LABS: Glucose, Whole Blood 73 mg/dL (60-115)
--- NOTE | 2025-02-27 09:33 | P.PNIM_ITS ---
Subjective Subjective Date of Service: 02/27/25 Interval History: doing well, no new issues Physical Exam 2 Vital Signs: Vital Signs: Last Vital Signs Temp 97.5 F 02/27/25 07:28 Pulse 52 02/27/25 07:28 Resp 14 02/27/25 07:28 BP 128/61 02/27/25 07:28 Pulse Ox 98 02/27/25 07:28 O2 Del Method Room Air 02/27/25 07:28 BMI result Body Mass Index 21.6 Const: Other: General: oriented to self,, no acute distress Resp: CTA bilateral CVS: S1,S2,RRR GI: +BS, NT, no distention Skin: No rash Neuro: motor grossly intact Psych: appropriate affect Objective Data Active Medications Acetaminophen (Acetaminophen 325 Mg Tablet) 650 mg PO Q6H PRN On Hold: 02/06/25 20:58 PRN Reason: Headache/Pain, Scale 1-10 Amitriptyline HCl (Amitriptyline Hcl 10 Mg Tablet) 20 mg PO BEDTIME ELISABET On Hold: 02/06/25 14:09 Last Admin: 02/05/25 21:45 Dose: 20 mg Documented By: LARS Calcium Carbonate/Cholecalciferol (Calcium + Vitamin D 250 Mg Tablet) 250 mg PO BID [facility] Last Admin: 02/27/25 07:48 Dose: 250 mg Documented By: BART Cyanocobalamin (Cyanocobalamin (Vitamin B-12) 1,000 Mcg Tablet) 1,000 mcg PO DAILY [facility] Last Admin: 02/27/25 07:48 Dose: 1,000 mcg Documented By: BART Divalproex Sodium (Divalproex Sodium Er 250 Mg Tab.Er.24h) 1,250 mg PO BEDTIME ELISABET On Hold: 02/06/25 20:57 Last Admin: 02/05/25 21:45 Dose: 1,250 mg Documented By: LARS Enoxaparin Sodium (Enoxaparin Sodium 40 Mg/0.4 Ml Syringe) 40 mg SUBCUT Q24H ELISABET On Hold: 02/07/25 03:13 Last Admin: 02/06/25 22:14 Dose: 40 mg Documented By: DELANEY Famotidine (Famotidine 20 Mg Tablet) 20 mg PO DAILY [facility]ISABET Last Admin: 02/27/25 07:48 Dose: 20 mg Documented By: BART Finasteride (Finasteride 5 Mg Tablet) 5 mg PO DAILY [facility] Last Admin: 02/27/25 07:48 Dose: 5 mg Documented By: BART Gabapentin (Gabapentin 300 Mg Capsule) 900 mg PO BID@0800,1200 [facility] On Hold: 02/06/25 14:09 Last Admin: 02/06/25 13:25 Dose: Not Given Documented By: АННА Non-Admin Reason: pt lethrgic Gabapentin (Gabapentin 400 Mg Capsule) 1,200 mg PO BEDTIME ELISABET On Hold: 02/06/25 14:09 Last Admin: 02/05/25 21:44 Dose: 1,200 mg Documented By: LARS Ketorolac Tromethamine (Ketorolac Tromethamine 10 Mg Tablet) 10 mg PO Q6H PRN PRN Reason: Pain, Moderate(Pain Scale 4-6) Last Admin: 02/26/25 21:23 Dose: 10 mg Documented By: EUGENE Magnesium Hydroxide (Milk Of Magnesia 30 Ml Oral.Susp) 30 ml PO DAILY PRN PRN Reason: Constipation Last Admin: 02/17/25 11:14 Dose: 30 ml Documented By: RORY Magnesium Oxide (Magnesium Oxide 400 Mg Tablet) 400 mg PO DAILY [facility] Last Admin: 02/27/25 07:48 Dose: 400 mg Documented By: BART Melatonin (Melatonin 3 Mg Tablet) 6 mg PO BEDTIME PRN PRN Reason: Insomnia Last Admin: 02/26/25 21:12 Dose: 6 mg Documented By: EUGENE Memantine (Memantine Hcl 5 Mg Tablet) 5 mg PO BID [facility] Last Admin: 02/27/25 07:48 Dose: 5 mg Documented By: BART Methadone HCl (Methadone Hcl 20 Mg/2 Ml Oral.Conc) 40 mg PO DAILY [facility] Last Admin: 02/27/25 07:48 Dose: 40 mg Documented By: BART Co-signed By: FRANKLIN Naloxone HCl (Naloxone Hcl Nasal 4 Mg [place]) 4 mg NOSTRILALT Q2M PRN PRN Reason: opioid overdose Naproxen (Naproxen 500 Mg Tablet) 500 mg PO BID [facility] On Hold: 02/06/25 20:57 Last Admin: 02/06/25 08:24 Dose: 500 mg Documented By: АННА Quetiapine Fumarate (Quetiapine Fumarate 100 Mg Tablet) 100 mg PO BEDTIME [facility] On Hold: 02/06/25 14:09 Last Admin: 02/05/25 21:45 Dose: 100 mg Documented By: LARS Senna/Docusate Sodium (Sennosides/Docusate Sodium Tablet) 2 tab PO BEDTIME PRN PRN Reason: Constipation Last Admin: 02/18/25 20:02 Dose: 2 tab Documented By: CASTILEnriqueta Sodium Chloride (0.9 % Sodium Chloride Flush 3 Ml Syringe) 3 ml IVFLUSH QSHIFT [facility] Last Admin: 02/27/25 07:49 Dose: 3 ml Documented By: BART Tamsulosin HCl (Tamsulosin Hcl 0.4 Mg Capsule) 0.4 mg PO DAILY [facility] Last Admin: 02/27/25 07:48 Dose: 0.4 mg Documented By: BART Valproic Acid (Valproic Acid 250 Mg Capsule) 250 mg PO BID [facility] Last Admin: 02/27/25 07:48 Dose: 250 mg Documented By: BART Vitamin D (Cholecalciferol (Vitamin D3) 25 Mcg Tablet) 50 mcg PO DAILY [facility] Last Admin: 02/27/25 07:48 Dose: 50 mcg Documented By: BART Labs 02/23/25 15:14 02/23/25 15:14 Labs: Laboratory Results - last 24 hr 02/26/25 02/27/25 11:38 07:58 POC Glucose 109 73 Assessment and Plan (1) Adult failure to thrive: Status: Acute Plan The pt is a 74-year-old male with a PMH significant for polysubstance use disorder on methadone, GERD, and mood disorder who initially presented to the ED on 01/31/2025 for weakness and question of altered mental status. Pt was brought to the hospital floor and admitted for acute metabolic encephalopathy in setting of UTI and failure to thrive. No new issues, awaiting placement Adult Failure to thrive, -Presented to ED on 01/31/2025 for generalized weakness and possible AMS -Initial workup negative and was placed in PT/ from 01/31-02/06 -Currently waiting on STR placement Mood disorder/question of dementia -stable and well compensated -amitriptyline, divalproex, memantine, quetiapine -continue valproic acid 250 mg b.i.d. for now, slowly wean off Polysubstance use disorder -appreciate input -too high risk to taper methadone -continue methadone Hypoglycemia intermittently, assymptomatic, daily glucose check and intervention as needed check routine labs Full Code DVT Prophylaxis: Pneumatic compression due to gross hematuria with clots Continued hospitalization: failure to thrive requiring placement to STR Quality Stroke Does the patient have a stroke diagnosis?: No VTE Prior VTE?: No VTE Risk Level:: Medical - moderate - high VTE Device Contraindication: Treatment Not Indicated VTE Drug Contraindication: N/A - Med Ordered
--- NOTE | 2025-02-27 11:53 | P.DS_ITS ---
DS: Providers Provider Date of Service: 02/27/25 Date of admission: 02/06/25 17:22 Date of discharge: 02/27/25 Primary care physician: Moni Kohler MD Consults: 02/07/25 03:13 Consult to Urology Routine Consulting Provider: [facility] Reason for consultation: gross hematuria after lovenox Has provider been notified: No 02/11/25 14:37 Consult to Wound Care Routine Reason for consultation: Sacral stage II decubitus ulcer 02/15/25 07:53 Addiction Medicine Provider Routine Consulting Provider: Addiction Covering Reason for consultation: Methadone taper Has provider been notified: No DS: Diagnosis Discharge Diagnosis (1) Adult failure to thrive: Status: Acute DS: Summary Hospital Course Hospital Course: admission hpi from 02/06/25 Chief Complaint: Lethargy, FTT The pt is a 74-year-old male with a PMH significant for polysubstance use disorder on methadone, GERD, and mood disorder who initially presented to the ED on 01/31/2025 for weakness and question of altered mental status. Initial workup was negative without any acute findings and pt was placed in PT/CM care while awaiting STR placement. Today pt was found to be increasingly lethargic and altered from baseline. Repeat labs were drawn which revealed UA positive for UTI. No significant electrolyte abnormalities. Renal function at baseline. Lactic acid WNL. Ammonia WNL. Troponin negative. CXR showing chronic interstitial lung disease and mild interstitial lung edema vs acute small airway inflammatory process. Pt was treated with ceftriaxone. Pt seen and evaluated where he is alert and oriented to self and partially to place. Is uncertain why he is in the hospital and unable to state for how long. Not oriented to time. Pt otherwise has no acute medical complaints. Pt will be brought to the hospital floor and admitted for acute metabolic encephalopathy in setting of UTI and failure to thrive. hospital course: The pt is a 74-year-old male with a PMH significant for polysubstance use disorder on methadone, GERD, and mood disorder who initially presented to the ED on 01/31/2025 for weakness and question of altered mental status. He ramined under ED care while case management worked on finding a placement. On 02/06 he became increasing lethargic and altered and ultimately found to have UTI and was admitted for this and treated and has completed a course of antibiotics. Following this, he has remained in the hospital and physical therapy has been working with him and he has improved. Thus far has been unable to be placed and given improvement, son will take him home with home services. No new issues, awaiting placement Mood disorder/question of dementia -stable and well compensated -amitriptyline, divalproex, memantine, quetiapine -continue valproic acid 250 mg b.i.d, weaned from 1250 bid Polysubstance use disorder -appreciate input -too high risk to taper methadone -continue methadone Hypoglycemia, stable, to have regular meals Time Attestation Discharge Coordination Time (in mins): 40 Quality: Safe Use of Opioids Does Pt have an Active Cancer Diagnosis on the Problem List?: No Quality: Stroke Does the patient have a stroke diagnosis?: No Physical Exam Vital Signs: Vital Signs: Last Vital Signs Temp 97.5 F 02/27/25 07:28 Pulse 52 02/27/25 07:28 Resp 14 02/27/25 07:28 BP 128/61 02/27/25 07:28 Pulse Ox 98 02/27/25 07:28 O2 Del Method Room Air 02/27/25 07:28 BMI result Body Mass Index 21.6 DS: Data Data Completed and Pending Completed studies during hospitalization [Text1]: Procedures Insertion of Endotracheal Airway into Trachea, Via Natural or Artificial Opening (12/17/24) Introduction of Vasopressor into Peripheral Vein, Percutaneous Approach (12/17/24) Respiratory Ventilation, Less than 24 Consecutive Hours (12/17/24) Labs on day of discharge: Laboratory Results - last 24 hr 02/27/25 07:58 POC Glucose 73 Discharge Plan Discharge Anticipated Discharge Date/Time: 02/27/25 11:49 Patient Disposition: Home Health Service Discharge Diagnosis: Adult failure to thrive Referrals: [facility] [Other] [facility] [Outside] Moni Kohler MD [Primary Care Provider, Internal Medicine] - 1 Week Discharge Medications: New tamsulosin 0.4 mg Capsule 0.4 mg PO DAILY Qty: 90 0RF valproic acid 250 mg Capsule 250 mg PO BID Qty: 180 0RF Continued magnesium oxide 420 mg Tablet 420 mg PO DAILY 30 Days Qty: 30 0RF calcium carbonate-vitamin D3 500 mg-3.125 mcg (125 unit) Tablet 1 tab PO BID 30 Days Qty: 60 0RF meloxicam 15 mg Tablet 7.5 mg PO DAILY cyanocobalamin (vitamin B-12) 1,000 mcg Tablet 1,000 mcg PO DAILY amitriptyline 10 mg Tablet 20 mg PO BEDTIME gabapentin 300 mg Capsule 900 mg PO BID@0800,1200 gabapentin 300 mg Capsule 1,200 mg PO BEDTIME vitamin E (dl, acetate) 45 mg (100 unit) Capsule 45 mg PO DAILY cholecalciferol (vitamin D3) [Vitamin D3] 50 mcg (2,000 unit) Tablet 50 mcg PO DAILY sennosides-docusate sodium [Senna Plus] 8.6-50 mg tablet 2 tab PO BEDTIME PRN (Reason: Constipation) quetiapine [Seroquel] 100 mg Tablet 100 mg PO BEDTIME famotidine 20 mg tablet 20 mg PO DAILY memantine 5 mg Tablet 5 mg PO BID acetaminophen 325 mg Tablet 650 mg PO Q6H PRN (Reason: Headache/Pain, Scale 1-10) 15 Days Qty: 120 1RF naloxone [Narcan] 4 mg/actuation spray,non-aerosol 4 mg intranasal Q2M PRN (Reason: opioid overdose) 1 Days Qty: 2 0RF Rx Instructions: spray 1 dose into ONE nostril; alternate nostrils w each dose until help arrives methadone 10 mg Tablet 40 mg PO DAILY Discontinued divalproex 250 mg tablet extended release 24 hr 1,250 mg PO BEDTIME Discharge Orders: Discharge Order (Routine); Ordered 02/27/25 Ordered By: Rony Tillman Diet: Advance to usual diet Activity on Discharge: As tolerated Stand Alone Forms: Patient Portal Discharge page Print Language: Icelandic Care Plan Goals: recovery from adult failure to thrive Health Concerns: Adult failure to thrive, now improved uti, completed treatment Plan of Treatment: Patient will go home with Homehealth services to resume prior meds, valproic acid reduced to 250 mg twice dailuy follow up with primary care provider within a week Assessment: see above Discharge Date/Time: 02/27/25 16:08
--- NOTE | 2025-02-27 12:05 | W.MHC.F2F ---
Service Date Service Date: 02/27/25 Encounter Date of encounter: 02/27/25 Reasons for Services Signs and symptoms assessed: weakness, adult failure to thrive Reason for retirement: neurological assessment and medication treatment Reason for physical therapy: home safety and mobility and ADL training Reason for occupational therapy: home safety and mobility, therapeutic exercises and assess need for DME Homebound: Leaving the home is medically contraindicated at this time without the asist of a device and/or another person due th the listed conditions above and below. Reason homebound: fall risk related to blood pressure changes and cognitively impaired / unsafe Homebound supporting statement: homebound due to adult failure to thrive, weakness from hospitalization and therefore needs the assistance of another person Certification: Based on the above findings, I certify that this patient is confined to the home and needs intermittent retirement care, physical therapy and/or speech therapy, or continues to need occupational therapy. The patient is under my care, and I have initiated the establishment of the plan of care. The patient will be followed by a physician who will periodically review the plan of care. Time Spent With Patient Time: Total time managing care of this patient today ____ minutes.
[2025-02-27 14:21] VITALS: BP 124/67; PULSE 62; O2SAT 97
--- NOTE | 2025-02-27 15:10 | MHC.CM.PN ---
Addendum entered by Libia Bernstein 02/27/25 15:31: CM RECEIVED A CALL BACK FROM JAIME AT [facility] SHE REPORTS PTS SERVICES THROUGH THEM WERE NEVER ARRANGED, THEY DID HAVE THE AUTH FOR 9 HOURS, BUT HAVE BEEN UNABLE TO REACH PT TO ARRANGE SOC SHE WAS INFORMED PT WAS INPT SINCE 02/06/25 SHE SAYS IF PT/SON CALL TOMORROW THEY CAN ARRANGE SOC SON NOTIFIED VIA T/C AND NOTE ADDED TO DCS Original Note: CM SPOKE TO PTS SON/HCP, AN[place]ES [phone] HE UNDERSTANDS THERE HAVE BEEN NO BED OFFERS FOR THE PT HE IS AGREEABLE TO PT DISCHARGING HOME WITH [facility] OF [facility] AND DOUGIE RICHEY AT [facility] WAS CONTACTED AND WILL INFORM THE PERSON WHO MANAGES PTS HOME SERVICES CM ALSO NOTIFIED [facility] PT WILL TRANSPORT HOME VIA BLS, [facility], [facility] AND SAID PT COULD REQUEST REIMBURSEMENT IF IT IS NOT COVERED BY MEDICARE [facility] IS AWARE BLS TRANSPORT WAS BOOKED FOR 1600 HOURS WITH JAVIER AND REPORTS HE WILL BE HOME TO RECEIVE PT HE ALSO REPORTED HE IS AVAILABLE AT THIS TIME, HOWEVER HOPES TO GET EMPLOYMENT IN THE FUTURE HE UNDERSTANDS HE SHOULD WORK WITH [facility] CM AND ACP TO DETERMINE IF PT CAN GET INCREASED SO THAT HE CAN WORK, 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
[2025-02-27 15:18] VITALS: BP 128/61; PULSE 64; RESP 18; TEMP 36.1; O2SAT 98
== END 2025-02-27 16:08 | disposition home health service (06) | DRG 689 ==
LOC: HO.ED 02-06 17:48 → HO.EDOVER 02-06 17:51 → HO.S3 02-07 03:42 → HO.EDOVER 02-07 04:48 → HO.IMC 02-07 16:13 → HO.EDOVER 02-07 17:01 → HO.S3 02-07 19:18
PROVIDERS: Hospitalist; Physician Assistant; Physician Assistant Medical; Admitting Provider Student in an Organized Health Care Education/Training Program; Emergency Provider Emergency Medicine; PCP Family Medicine; Visit Provider Internal Medicine
DX: N39.0 Urinary tract infection, site not specified (principal); G93.41 Metabolic encephalopathy; F11.20 Opioid dependence, uncomplicated; T83.83XA Hemorrhage due to genitourinary prosthetic devices, implants and grafts, initial encounter; F31.9 Bipolar disorder, unspecified; K21.9 Gastro-esophageal reflux disease without esophagitis; L24.A0 Irritant contact dermatitis due to friction or contact with body fluids, unspecified; F03.90 Unspecified dementia, unspecified severity, without behavioral disturbance, psychotic disturbance, mood disturbance, and anxiety; R13.12 Dysphagia, oropharyngeal phase; F19.90 Other psychoactive substance use, unspecified, uncomplicated; R33.9 Retention of urine, unspecified; G62.9 Polyneuropathy, unspecified; E16.2 Hypoglycemia, unspecified; R62.7 Adult failure to thrive; Z68.21 Body mass index [BMI] 21.0-21.9, adult; R31.0 Gross hematuria; Z20.822 Contact with and (suspected) exposure to COVID-19; Z79.899 Other long term (current) drug therapy; Y73.8 Miscellaneous gastroenterology and urology devices associated with adverse incidents, not elsewhere classified
CPT/HCPCS: 36415; 70450; 71045; 76775; 80048; 80053; 80076; 80307; 81001; 82140; 82947; 83605; 83735; 84443; 84484; 85025; 85027; 85610; 87040; 87086; 87502; 87635; 87637; 92526; 92610; 93005; 97110; 97112; 97162; 97530; 99285; J0131; J0696; J1650

== ENCOUNTER → 2025-01-31 12:39 | Outpatient (BNV) | payer MEDICARE, SELFPAY | PROVIDERS: Emergency Provider Emergency Medicine; PCP Family Medicine; Visit Provider Radiology Diagnostic Radiology | DX: G93.40 Encephalopathy, unspecified (principal); J81.1 Chronic pulmonary edema | CPT/HCPCS: 70450; 71045 ==

== ENCOUNTER → 2025-01-31 12:40 | Outpatient (BNV) | payer MEDICARE, SELFPAY | PROVIDERS: Emergency Provider Emergency Medicine; PCP Family Medicine; Visit Provider Internal Medicine Cardiovascular Disease | DX: I49.1 Atrial premature depolarization (principal) | CPT/HCPCS: 93010 ==

== ENCOUNTER → 2025-02-06 14:02 | Outpatient (BNV) | payer MEDICARE, MEDICAID, SELFPAY | PROVIDERS: Emergency Provider Emergency Medicine; PCP Family Medicine; Visit Provider Radiology Diagnostic Radiology | DX: G93.40 Encephalopathy, unspecified (principal) | CPT/HCPCS: 70450; 71045 ==

== ENCOUNTER → 2025-02-06 14:02 | Outpatient (BNV) | payer MEDICARE, MEDICAID, SELFPAY | PROVIDERS: Emergency Provider Emergency Medicine; PCP Family Medicine; Visit Provider Internal Medicine Cardiovascular Disease | DX: R41.82 Altered mental status, unspecified (principal) | CPT/HCPCS: 93010 ==

== ENCOUNTER 2025-02-06 17:22 | Outpatient (BNV) | payer MEDICARE, MEDICAID, SELFPAY | END 2025-02-07 17:30 | PROVIDERS: Admitting Provider Student in an Organized Health Care Education/Training Program; Emergency Provider Emergency Medicine; PCP Family Medicine; Visit Provider Radiology Diagnostic Radiology | DX: R31.0 Gross hematuria (principal) | CPT/HCPCS: 76775 ==

== ENCOUNTER → 2025-02-06 17:22 | Outpatient (BNV) | payer MEDICARE, SELFPAY | PROVIDERS: Admitting Provider Student in an Organized Health Care Education/Training Program; Emergency Provider Emergency Medicine; PCP Family Medicine; Visit Provider Nurse Practitioner Psychiatric/Mental Health | DX: F11.90 Opioid use, unspecified, uncomplicated (principal) | CPT/HCPCS: 99221 ==

== ENCOUNTER → 2025-02-06 17:22 | Outpatient (BNV) | payer MEDICARE, MEDICAID, SELFPAY | PROVIDERS: Admitting Provider Student in an Organized Health Care Education/Training Program; Emergency Provider Emergency Medicine; PCP Family Medicine; Visit Provider Physician Assistant | DX: R62.7 Adult failure to thrive (principal) | CPT/HCPCS: 99223; 99232; 99499 ==

== ENCOUNTER → 2025-02-06 17:22 | Outpatient (BNV) | payer MEDICARE, MEDICAID, SELFPAY | PROVIDERS: Admitting Provider Student in an Organized Health Care Education/Training Program; Emergency Provider Emergency Medicine; PCP Family Medicine; Visit Provider Urology | DX: N39.0 Urinary tract infection, site not specified (principal) | CPT/HCPCS: 99222 ==

== ENCOUNTER 2025-03-31 09:42 | Emergency (ER) | payer OTHER, MEDICARE, SELFPAY ==
--- NOTE | ~2025-03-31 | CT_ITS ---
EXAMINATION: CT LUMBAR SPINE WITHOUT IV CONTRAST HISTORY: pain, fall, injury. TECHNIQUE: Unenhanced helical CT of the lumbar spine spine was performed per standard departmental protocol. Coronal and sagittal reformats were also evaluated. One or more of the following techniques was used for dose reduction: Automated exposure control, adjustment of the mA and/or kV according to patient size, use of iterative reconstruction technique. DLP: 298 mGy-cm COMPARISON: Previous CT of the abdomen and pelvis August 2021 FINDINGS: BONES/JOINTS: Severe demineralization. Mild acute compression fracture of the superior endplate of the L1 vertebral body. Severe old appearing L2 vertebral body compression fracture. There is slight retropulsion of bone into the spinal canal unchanged from prior CT exam. Normal L3 vertebral body. Question Schmorl's node versus old compression fracture of the inferior endplate of the L4 vertebral body. Normal L5 vertebral body. Question old trauma to the proximal sacrum. This is unchanged from previous exam. At T12-L1 no disc protrusion or bulge. Mild facet arthritis. At L1-2 there is a diffuse disc bulge. There is a moderate to severe spinal stenosis due to disc bulge, short pedicles and facet arthritis. At L2-3 there is diffuse disc bulge. There is severe secondary spinal stenosis due to disc bulge, short pedicles and facet arthritis. At L3-4 there is diffuse disc bulge. There is severe spinal stenosis due to disc bulge, short pedicles and facet arthritis. At L3-4 there is diffuse disc bulge. There is severe spinal stenosis due to disc bulge, short pedicles and facet arthritis. There is disc bulge at L5-S1. There is a mixed lucent and sclerotic lesion in the left sacrum near the sacroiliac joint. This is similar to prior CT from December 2021 and may represent a benign fibrocartilaginous lesion. This measures approximately 2 x 2.5 cm. There is severe atherosclerotic disease. There is extensive intraluminal plaque seen in the lower abdominal aorta and bilateral iliac arteries. Small calcification in the upper pole of the left kidney. This may be vascular. Increased stool in the colon suggestive of constipation. CT/CT lumbar spine wo IV con IMPRESSION: Severe demineralization. Mild acute appearing compression fracture of the superior endplate of the L1 vertebral body. Severe old appearing L2 vertebral body compression fracture, prominent Schmorl's node versus compression fracture of the inferior endplate of the L4 vertebral body and probable old trauma to the proximal sacrum unchanged from December [address] Multilevel degenerative disc disease, facet arthritis and short pedicles causing secondary spinal stenosis. Severe atherosclerotic disease. Electronically signed by: Aparna Chi MD 03/31/2025 10:53 AM EDT
--- NOTE | ~2025-03-31 | CT_ITS ---
EXAMINATION: CT HEAD WITHOUT CONTRAST CLINICAL INFORMATION: Pain after falling COMPARISON: 02/06/2025 TECHNIQUE: Contiguous axial imaging was performed from the skull base to vertex without intravenous administration of contrast. This CT examination was performed using dose optimization techniques as appropriate, variously including the following: *Automated exposure control *Adjustment of mA and/or kV according to patient size (this includes techniques or standardized protocols for targeted exams where dose is matched to indication/reason for exam; i.e. extremities or head) *Use of iterative reconstruction technique FINDINGS: There is no acute ischemic change. Again seen is a chronic lacunar infarcts involving bilateral caudate head nuclei. There are periventricular white matter hypodensities. There is hypodensity involving the chacon matter in the right frontal lobe, chronic and stable. There is no intracranial hemorrhage. There is no mass-effect or midline shift. Basal cisterns and ventricles are within normal limits for age/cerebral volume. Orbits are symmetrical and unremarkable. There is mild mucosal thickening in the anterior two third of the ethmoid air cells and right frontal sinus, slightly increased. There are no bony abnormalities. CT/CT head/brain wo IV con IMPRESSION: No acute intracranial abnormality. Stable chronic ischemic changes. Mild chronic mucosal thickening in the right frontal sinus and anterior two thirds ethmoid air cells is slightly increased. Electronically signed by: Romain Tran MD 03/31/2025 11:59 AM EDT
--- NOTE | ~2025-03-31 | CT_ITS ---
EXAMINATION: CT CERVICAL SPINE WITHOUT CONTRAST CLINICAL INFORMATION: Fall, pain COMPARISON: 02/26/2024 TECHNIQUE: Axial imaging was performed from the base of the skull through T2 without IV contrast. Coronal and sagittal reformatted images were generated from the original axial data set. ALARA: The examination used one or more of the following radiation dose reduction techniques: Automated exposure control, iterative reconstruction, and/or adjustment of mA and/or KV. FINDINGS: Faint calcific density within the cruciate ligament dens and within several discs/disc annuli is consistent with chondrocalcinosis. Mild disc space narrowing is present in the cervical spine. There is mild to moderate facet osteoarthritis with joint space narrowing and osteophytes. No fracture lines are identified. No prevertebral soft tissue edema is seen. No soft tissue abnormality is identified. CT/CT cervical spine wo IV con IMPRESSION: No acute abnormality. [id number] degenerative changes are evident in the cervical spine similar to the prior study. Electronically signed by: Romain Tran MD 03/31/2025 11:53 AM EDT
[2025-03-31 09:51] VITALS: BP 155/84; PULSE 73; RESP 20; TEMP 36.7; O2SAT 97; BMI 22.1
--- NOTE | 2025-03-31 09:59 | PC.NURSE ---
methadone dose verified with Luz Marina at [facility] in [place], patient got 40mg on 03/29 at 0957
--- NOTE | 2025-03-31 10:03 | ED_ITS ---
HPI - General Adult General Chief complaint: Fall Stated complaint: WITNESSED FALL YESTERDAY Time Seen by Provider: 03/31/25 10:02 Source: patient and EMS Mode of arrival: EMS Limitations: no limitations History of Present Illness ED Provider: Domi Mcconnell PA-C HPI narrative: Patient is a 74 year old assigned male at with a history of opioid use disorder on 40mg of Methadone daily, bipolar disorder, and mild cognitive impairment presenting to the emergency department today with low back pain after a fall. Patient states that he fell backwards yesterday (03/30/2025) and hit his low back on a wall. Patient states that he did not hit his head or have any loss of consciousness. Patient denies any other complaints at this time. Related Data Home Medications ?Medication ?Instructions ?Recorded ?Confirmed famotidine 20 mg tablet 20 mg PO DAILY 11/18/2203/03 amitriptyline 10 mg tablet 20 mg PO BEDTIME 02/26/24 1 cyanocobalamin (vitamin B-12) 1,000 mcg PO DAILY 02/2503/31/25 1,000 mcg tablet gabapentin 300 mg capsule 1,200 mg PO BEDTIME 02/26/24 03/31/25 gabapentin 300 mg capsule 900 mg PO BID@0800,1200 01/3103/31/25 sennosides 8.6 mg-docusate sodium 2 tab PO BEDTIME Con stipation 02/26/24 03/31/25 50 mg tablet (Senna Plus) vitamin E (dl, acetate) 45 mg (100 45 mg PO DAILY 01/3103/31/25 unit) capsule quetiapine 100 mg tablet (Seroquel) 100 mg PO BEDTIME 07/06/24 03/31/25 memantine 5 mg tablet 5 mg PO BID 12/01/24 5 methadone 10 mg tablet 40 mg PO DAILY 02/01/2509/23 tamsulosin 0.4 mg capsule 0.4 mg PO BEDTIME 03/31/25 1 Previous Rx's ?Medication ?Instructions ?Recorded calcium 500 mg (as 1 tab PO BID 30 days #60 tab s 01/22/22 carbonate)-vitamin D3 3.125 mcg (125 unit) tablet magnesium oxide 420 mg tablet 420 mg PO DAILY 30 days #30 tabs 01/22/22 acetaminophen 325 mg tablet 650 mg (2 x 325 mg) PO Q6H PRN 12/06/24 Headache/Pain, Scale 1-10 15 days #120 tabs naloxone 4 mg/actuation nasal 4 mg intranasal Q2M PRN opioid 12/06/24 spray (Narcan) overdose 1 day #2 ea valproic acid 250 mg capsule 250 mg PO BID #180 caps 0 02/27/25 Allergies Allergy/AdvReac Type Severity Reaction Status Date / Time No Known Allergies (No Known Allergy Verified 03/31/25 09:53 Allergies*) Review of Systems Constitutional: Constitutional: Reports as per HPI Eyes: Eyes: Reports as per HPI ENT: Reports as per HPI Cardiovascular: Cardiovascular: Reports as per HPI Respiratory: Respiratory: Reports as per HPI Gastrointestinal: Gastrointestinal: Reports as per HPI Genitourinary: Genitourinary: Reports as per HPI Musculoskeletal: Musculoskeletal: Reports as per HPI Integumentary/Breasts: Skin/Breast: Reports as per HPI Neurologic: Reports as per HPI Psychiatric: Psychiatric: Reports as per HPI Endocrine: Endocrine: Reports as per HPI Hematologic/Lymphatic: Hematologic/Lymphatic: Reports as per HPI Allergic/Immunologic: Allergic/Immunologic: Reports as per HPI PMFSH Past Medical History Attestation statement: The following information was validated with the patient. Source: old records reviewed and nursing notes reviewed Medical History Polysubstance abuse Opioid use disorder Bipolar disorder Drug overdose Opioid use disorder, severe, on maintenance therapy Social History Social History Household Members: None Household Members Other:: Son Housing: Assisted Living Facility Do you presently have visiting nurse or other home services: No Alcohol intake: current Alcohol intake frequency: does not drink Comment: sitter Patient Tobacco Use Status: Tobacco use Unknown Tobacco use type: Cigarette Cigarette Packs Per Day: 0.5 Cigarettes Per Day: 10.0 Years Smoked: 50 Smoked in Last 30 Days: Yes e-Cigarette/Vaping Use: Never Used Second Hand Smoke Exposure: Yes Use of substances other than those prescribed or required for medical reasons: No Substance Use Type: Crack/Cocaine, Heroin and Marijuana Advance Directives: Yes Advance Directives on File: Yes Advance Directives Date on File: 12/17/24 Do you have a plan to hurt others: No Plan service: Yes Sexual orientation: Straight/Heterosexual Physical Exam ED Vital Signs: Vital Signs - 24 hr 03/31/25 14:20 03/31/25 14:32 03/31/25 20:51 Temperature 98.3 F Pulse Rate 70 70 Respiratory Rate 18 18 Blood Pressure 137/64 137/64 Pulse Oximetry 98 98 Oxygen Delivery Method Room Air 04/01/25 06:54 Temperature 97.9 F Pulse Rate 60 Respiratory Rate Blood Pressure 99/54 L Pulse Oximetry 93 Oxygen Delivery Method Room Air BMI result Body Mass Index 22.1 Const General: cooperative, no acute distress, alert and awake Nutritional Appearance: well nourished Orientation/consciousness: patient oriented x3 HENMT Head: Yes normal to inspection and Yes atraumatic Ears: hearing grossly normal bilaterally and external ears normal General nose exam: Normal external nose present, no nasal discharge noted and no epistaxis Face and sinus: Yes normal facial exam, No abrasion and No laceration Mouth: Normal oral and palatal mucosa present, no drooling and no muffled voice Eyes General: appearance normal, both eyes and all related structures Periorbital: periorbital findings normal Eyelids: Yes eyelids normal Conjunctivae: conjunctivae normal Pupils: Equal, round and reactive pupils present EOM: EOMs intact bilaterally Neck Neck: Yes normal visual inspection and Yes full ROM Resp Effort & Inspection: normal respiratory effort and able to speak in complete sentences Back/Spine/Pelvis Other: pain with palpation of the lumbar spine Neuro General: patient oriented x3, moves all extremities and CN's II-XI intact bilaterally Cranial nerves: Yes Equal, round and reactive pupils present Cognition (Neuro): normal cognition Extrem General: Yes normal to inspection, Yes full ROM and Yes capillary refill normal Psych Appearance: grossly normal Mental Status: mental status grossly normal Affect: normal affect Attitude: cooperative Thought process: Normal thought process present Thought content: Normal thought content present Insight: Good insight present (Psych) Course Course Course Narrative: 04/01 1307 Patient going home with resumption of VNA services. Discontinue physician observation Medications Administered Generic Name Dose Route Start Last Admin Trade Name Freq PRN Reason Stop Dose Admin Amitriptyline HCl 20 mg 03/31/25 21:00 03/31/25 20:42 Amitriptyline Hcl 10 Mg Tablet PO 20 mg BEDTIME ELISABET Administration Calcium Carbonate/Cholecalciferol 500 mg 03/31/25 21:00 04/01/25 08:56 Calcium + Vitamin D 250 Mg Tablet PO 500 mg BID ELISABET Administration Cyanocobalamin 1,000 mcg 04/01/25 09:00 04/01/25 08:56 Cyanocobalamin (Vitamin B-12) 1,000 Mcg Tablet PO 1,000 mcg DAILY ELISABET Administration Famotidine 20 mg 04/01/25 09:00 04/01/25 08:56 Famotidine 20 Mg Tablet PO 20 mg DAILY ELISABET Administration Gabapentin 900 mg 04/01/25 08:00 04/01/25 11:50 Gabapentin 300 Mg Capsule PO 900 mg BID@0800,1200 ELISABET Administration Gabapentin 1,200 mg 03/31/25 21:00 03/31/25 20:43 Gabapentin 400 Mg Capsule PO 1,200 mg BEDTIME ELISABET Administration Magnesium Oxide 400 mg 04/01/25 09:00 04/01/25 08:56 Magnesium Oxide 400 Mg Tablet PO 400 mg DAILY ELISABET Administration Memantine 5 mg 03/31/25 21:00 04/01/25 08:56 Memantine Hcl 5 Mg Tablet PO 5 mg BID ELISABET Administration Quetiapine Fumarate 100 mg 03/31/25 21:00 03/31/25 20:42 Quetiapine Fumarate 100 Mg Tablet PO 100 mg BEDTIME ELISABET Administration Senna/Docusate Sodium 2 tab 03/31/25 21:00 03/31/25 20:42 Sennosides/Docusate Sodium Tablet PO 2 tab BEDTIME ELISABET Administration Tamsulosin HCl 0.4 mg 03/31/25 21:00 03/31/25 20:42 Tamsulosin Hcl 0.4 Mg Capsule PO 0.4 mg BEDTIME ELISABET Administration Valproic Acid 250 mg 03/31/25 21:00 04/01/25 08:56 Valproic Acid 250 Mg Capsule PO 250 mg BID ELISABET Administration Discontinued Medications Generic Name Dose Route Start Last Admin Trade Name Freq PRN Reason Stop Dose Admin Ketorolac Tromethamine 15 mg 03/31/25 10:13 03/31/25 10:30 Ketorolac Tromethamine 15 Mg/Ml Vial IM 03/31/25 10:14 15 mg ONCE ONE Administration Methadone HCl 40 mg 03/31/25 10:13 03/31/25 10:30 Methadone Hcl 20 Mg/2 Ml Oral.Conc PO 03/31/25 10:14 40 mg ONCE ONE Administration Methadone HCl 40 mg 04/01/25 10:00 04/01/25 09:51 Methadone Hcl 20 Mg/2 Ml Oral.Conc PO 04/01/25 10:01 40 mg ONCE ONE Administration Medical Decision Making Medical Decision Making [facility] Narrative: Patient is a 74 year old assigned male at with a history of opioid use disorder on 40mg of Methadone daily, bipolar disorder, and mild cognitive impairment presenting to the emergency department today with low back pain after a fall. Patient's physical exam was as noted in the physical exam portion of this note. Patient's CT head/c-spine showed no acute process. Patient's CT lumbar spine showed a compression fracture of the L1 that appears acute and old L2 + L4 compression fractures. I explained my physical exam findings as well as all test results to the patient. I answered all questions asked by the patient. Patient was given his 40mg of Methadone as well as a dose of IM Toradol which he stated helped his pain some. Patient is unsure if he is going to be able to walk given he walks with a walker at baseline. Physical therapy and case management consults placed. Patient placed in observation at 1256pm on 03/31/2025. Differential Diagnosis Differential Diagnoses: The differential diagnosis associated with the presentation includes Fall Compression fracture Back pain Admission/Observation Consideration of admission/observation: Escalation of care including admission/observation considered Patient would have been admitted to the hospital had his work up had any findings where hospital admission was appropriate and his clinical presentation warranted hospital admission. Independent Interpretation I performed an independent interpretation of an: CT Scan Interpretation: My interpretation is in agreement with the radiologist's impression of these imaging studies. Report Number: [id number]: Total DLP = 296.00 mGy-cm Reason for Exam: pain, fall, injury EXAMINATION: CT LUMBAR SPINE WITHOUT IV CONTRAST HISTORY: pain, fall, injury. TECHNIQUE: Unenhanced helical CT of the lumbar spine spine was performed per standard departmental protocol. Coronal and sagittal reformats were also evaluated. One or more of the following techniques was used for dose reduction: Automated exposure control, adjustment of the mA and/or kV according to patient size, use of iterative reconstruction technique. DLP: 298 mGy-cm COMPARISON: Previous CT of the abdomen and pelvis August 2021 FINDINGS: BONES/JOINTS: Severe demineralization. Mild acute compression fracture of the superior endplate of the L1 vertebral body. Severe old appearing L2 vertebral body compression fracture. There is slight retropulsion of bone into the spinal canal unchanged from prior CT exam. Normal L3 vertebral body. Question Schmorl's node versus old compression fracture of the inferior endplate of the L4 vertebral body. Normal L5 vertebral body. Question old trauma to the proximal sacrum. This is unchanged from previous exam. At T12-L1 no disc protrusion or bulge. Mild facet arthritis. At L1-2 there is a diffuse disc bulge. There is a moderate to severe spinal stenosis due to disc bulge, short pedicles and facet arthritis. At L2-3 there is diffuse disc bulge. There is severe secondary spinal stenosis due to disc bulge, short pedicles and facet arthritis. At L3-4 there is diffuse disc bulge. There is severe spinal stenosis due to disc bulge, short pedicles and facet arthritis. At L3-4 there is diffuse disc bulge. There is severe spinal stenosis due to disc bulge, short pedicles and facet arthritis. There is disc bulge at L5-S1. There is a mixed lucent and sclerotic lesion in the left sacrum near the sacroiliac joint. This is similar to prior CT from December 2021 and may represent a benign fibrocartilaginous lesion. This measures approximately 2 x 2.5 cm. There is severe atherosclerotic disease. There is extensive intraluminal plaque seen in the lower abdominal aorta and bilateral iliac arteries. Small calcification in the upper pole of the left kidney. This may be vascular. Increased stool in the colon suggestive of constipation. CT/CT lumbar spine wo IV con IMPRESSION: Severe demineralization. Mild acute appearing compression fracture of the superior endplate of the L1 vertebral body. Severe old appearing L2 vertebral body compression fracture, prominent Schmorl's node versus compression fracture of the inferior endplate of the L4 vertebral body and probable old trauma to the proximal sacrum unchanged from December [address] Multilevel degenerative disc disease, facet arthritis and short pedicles causing secondary spinal stenosis. Severe atherosclerotic disease. Electronically signed by: Aparna Chi MD 03/31/2025 10:53 AM EDT Dictated By: Aparna Chi MD Signed By: Electronically signed by Aparna Chi MD 03/31/25 1053 Report Number: [id number]: Total DLP = 331.00 mGy-cm Reason for Exam: fall, pain EXAMINATION: CT CERVICAL SPINE WITHOUT CONTRAST CLINICAL INFORMATION: Fall, pain COMPARISON: 02/26/2024 TECHNIQUE: Axial imaging was performed from the base of the skull through T2 without IV contrast. Coronal and sagittal reformatted images were generated from the original axial data set. ALARA: The examination used one or more of the following radiation dose reduction techniques: Automated exposure control, iterative reconstruction, and/or adjustment of mA and/or KV. FINDINGS: Faint calcific density within the cruciate ligament dens and within several discs/disc annuli is consistent with chondrocalcinosis. Mild disc space narrowing is present in the cervical spine. There is mild to moderate facet osteoarthritis with joint space narrowing and osteophytes. No fracture lines are identified. No prevertebral soft tissue edema is seen. No soft tissue abnormality is identified. CT/CT cervical spine wo IV con IMPRESSION: No acute abnormality. [id number] degenerative changes are evident in the cervical spine similar to the prior study. Electronically signed by: Romain Tran MD 03/31/2025 11:53 AM EDT Dictated By: Romain Tran MD Signed By: Electronically signed by Romain Tran MD 03/31/25 1153 Report Number: [id number]: Total DLP = 674.00 mGy-cm Reason for Exam: fall, pain EXAMINATION: CT HEAD WITHOUT CONTRAST CLINICAL INFORMATION: Pain after falling COMPARISON: 02/06/2025 TECHNIQUE: Contiguous axial imaging was performed from the skull base to vertex without intravenous administration of contrast. This CT examination was performed using dose optimization techniques as appropriate, variously including the following: *Automated exposure control *Adjustment of mA and/or kV according to patient size (this includes techniques or standardized protocols for targeted exams where dose is matched to indication/reason for exam; i.e. extremities or head) *Use of iterative reconstruction technique FINDINGS: There is no acute ischemic change. Again seen is a chronic lacunar infarcts involving bilateral caudate head nuclei. There are periventricular white matter hypodensities. There is hypodensity involving the chacon matter in the right frontal lobe, chronic and stable. There is no intracranial hemorrhage. There is no mass-effect or midline shift. Basal cisterns and ventricles are within normal limits for age/cerebral volume. Orbits are symmetrical and unremarkable. There is mild mucosal thickening in the anterior two third of the ethmoid air cells and right frontal sinus, slightly increased. There are no bony abnormalities. CT/CT head/brain wo IV con IMPRESSION: No acute intracranial abnormality. Stable chronic ischemic changes. Mild chronic mucosal thickening in the right frontal sinus and anterior two thirds ethmoid air cells is slightly increased. Electronically signed by: Romain Tran MD 03/31/2025 11:59 AM EDT Dictated By: Romain Tran MD Signed By: Electronically signed by Romain Tran MD 03/31/25 1159 Radiology Impression Discussion of test interpretation with radiology: I have reviewed the radiologist's reading. Independent Historian Clinical information obtained from an independent historian. History obtained from or confirmed by: EMS (EMS provided additional history and confirmed the history provided by the patient. ) Discharge Plan Discharge Clinical Impression: Fracture of lumbar spine Qualifiers: Encounter type: initial encounter Lumbar vertebra fracture level: L1 Fracture type: closed Fracture morphology: unspecified fracture morphology Qualified Code(s): S32.019A - Unspecified fracture of first lumbar vertebra, initial encounter for closed fracture Patient Disposition: Home, Self-Care Instructions: Vertebral Compression Fracture (ED) Additional Instructions: Your scan showed a fracture / break of your L1 spine. Take Tylenol + Ibuprofen over the counter for pain. IF you are prescribed home medications and/or you are taking over the counter medications at home - it is very important you continue to do so as prescribed / directed unless told otherwise. Follow up with your primary care provider. Return to the emergency department immediately if your symptoms worsen or if you develop any numbness, tingling, dizziness, shortness of breath, difficulty breathing, chest pain, blurry vision, loss of vision, nausea, vomiting, abdominal pain, fever, chills, back pain, or any other complaints. Please see the information below about our Patient Portal. If you are not yet enrolled in the [facility] Patient Portal, you will receive an enrollment email invitation following your visit to any [facility] setting. You may also self-enroll in the Patient Portal by visiting our website: [email or web address] The following information is required to access the Patient Portal: - Your [facility] Medical Record Number - Your personal home email address (must match what is in your electronic medical record, Registration staff can assist with this) - Name - Date of Capabilities of the Patient Portal: - Message some providers - View upcoming appointments - Access your health summary, medical history, and visit history - View current conditions and allergies - View procedure and lab results - View your medications, including guidelines, side effects, and precautions - Complete pre-appointment questionnaires requested by your provider - Ready summary reports of your office visits and procedures To access the Patient Portal Mobile [employer], follow these directions: - Search [employer] in the [employer] Store or Google Play Store - Download the [employer] - Search for [facility] - Enter your login/password Prescriptions: No Action magnesium oxide 420 mg Tablet 420 mg PO DAILY 30 Days Qty: 30 0RF calcium carbonate-vitamin D3 500 mg-3.125 mcg (125 unit) Tablet 1 tab PO BID 30 Days Qty: 60 0RF cyanocobalamin (vitamin B-12) 1,000 mcg Tablet 1,000 mcg PO DAILY amitriptyline 10 mg Tablet 20 mg PO BEDTIME gabapentin 300 mg Capsule 900 mg PO BID@0800,1200 gabapentin 300 mg Capsule 1,200 mg PO BEDTIME vitamin E (dl, acetate) 45 mg (100 unit) Capsule 45 mg PO DAILY sennosides-docusate sodium [Senna Plus] 8.6-50 mg tablet 2 tab PO BEDTIME quetiapine [Seroquel] 100 mg Tablet 100 mg PO BEDTIME tamsulosin 0.4 mg capsule 0.4 mg PO BEDTIME famotidine 20 mg tablet 20 mg PO DAILY memantine 5 mg Tablet 5 mg PO BID acetaminophen 325 mg Tablet 650 mg PO Q6H PRN (Reason: Headache/Pain, Scale 1-10) 15 Days Qty: 120 1RF naloxone [Narcan] 4 mg/actuation spray,non-aerosol 4 mg intranasal Q2M PRN (Reason: opioid overdose) 1 Days Qty: 2 0RF Rx Instructions: spray 1 dose into ONE nostril; alternate nostrils w each dose until help arrives methadone 10 mg Tablet 40 mg PO DAILY valproic acid 250 mg Capsule 250 mg PO BID Qty: 180 0RF Referrals: Moni Kohler MD [Primary Care Provider, Internal Medicine] Print Language: Grenadian
[2025-03-31] MEDS: methADONE HCl 20 MG/2 ML ORAL.CONC 40 MG PO (10:30)
--- NOTE | 2025-03-31 11:05 | HE.PHANOTE ---
Methadone Methadone verification form received from nursing ( Nancy). Patient gets Methadone [address] [facility] ([phone]). Last dose was 03/29/25 @8155
--- NOTE | 2025-03-31 13:32 | MHC.CM.PN ---
Addendum entered by Libia Bernstein 03/31/25 16:16: PT CLEARED BY PHYSICAL THERAPY TO DC HOME WITH SERVICES RETURN REFERRAL PLACED TO [facility]OUGIE WHO HE WAS ACTIVE WITH DURING PREVIOUS ADMISSION CM ATTEMPTED TO REACH PTS SON/HCP/SENIOR ANALYST, ANGELES [phone] HOWEVER HIS PHONE SAYS IT IS OUT OF SERVICES OF NOTE, STEPHANY PHONE APPEARED OUT OF SERVICE DURING PTS LAST ADMISSION, HOWEVER WORKED THE FOLLOWING DAY PT MAY NEED BLS TRANSPORT Addendum entered by Libia Bernstein 03/31/25 14:09: CM SPOKE TO JAYNE AT THE ME, PT DOES NOT HAVE A STR OR LTC BENEFIT, HE COULD BE COVERED FOR ACUTE IF HE QUALIFIED, BUT THAT AUTH WOULD NOT BE READY BEFORE THURSDAY Addendum entered by Libia Bernstein 03/31/25 13:44: PT IS ACTIVE WITH [facility] IN [place] FOR MAT, HIS SON TRANSPORTS HIM THERE PT USES A WHEEL CHAIR WHEN OUTSIDE OF THE HOME HE HAS MEALS ON WHEELS AND A CM AND RN AT THE [facility] CM: ELMA PARMAR [phone] [facility] RN: ROSSI [phone] PTS SON IS HIS SENIOR ANALYST Original Note: CONSULT RECEIVED, PT KNOWN TO CM PT LIVES WITH HIS SON, ANGELES AND HAS HOME CARE PROVIDED BY THE [facility] PROGRAM PT EVAL CURRENTLY PENDING, PT WOULD ONLY BE ABLE TO GO TO A ME FACILITY AND DURING HIS LAST ADMISSION, NO BED OFFERS WERE RECEIVED MESSAGES LEFT FOR JAYNE AT THE ME IN CASE AUTH NEEDS TO BE INITIATED PT EVAL PENDING
[2025-03-31 14:20] VITALS: BP 137/64; PULSE 70; RESP 18; TEMP 36.8; O2SAT 98
[2025-03-31 14:32] VITALS: BP 137/64; PULSE 70; O2SAT 98
--- NOTE | 2025-03-31 14:48 | PC.NURSE ---
mult calls placed to contacts and 1 # was disconnected and 1 had a full mailbox, pt states he does not have a reid and not sure if anyone is home, also states he doesn't think he can walk safely, pt and cm consults put in and meal given, pharmacy will work on med rec and med list sent
--- NOTE | 2025-03-31 15:32 | PHA.MEDREC ---
Pharmacy Consult ? Medication Reconciliation Pharmacy has completed the medication reconciliation, utilized list from pt.
[2025-03-31] MEDS: Calcium + Vitamin D 250 MG TABLET 500 MG PO (20:42)
[2025-03-31 20:51] VITALS: RESP 18
--- NOTE | 2025-03-31 23:11 | PC.NURSE ---
assumed care of pt, resting comfortably in stretcher no complaints at this time
[2025-04-01 06:54] VITALS: BP 99/54; PULSE 60; TEMP 36.6; O2SAT 93
[2025-04-01] MEDS: Calcium + Vitamin D 250 MG TABLET 500 MG PO (08:56)
[2025-04-01] MEDS: methADONE HCl 20 MG/2 ML ORAL.CONC 40 MG PO (09:51)
--- NOTE | 2025-04-01 10:36 | PC.NURSE ---
This RN was able to get in contact with pts son Alberto this morning. Alberto reported he had no keys to pts house and was not in the area. This RN explained currently situation. Alberto reported he was going to make a few calls, try to get ahold of his brother (pts HCP) and then call us back. This RN attempted to call back Alberto approx 1.5 hours later, no answer at this time
--- NOTE | 2025-04-01 11:37 | MHC.CM.ED ---
Addendum entered by Josey Cox 04/01/25 13:15: Spoke with [facility]. Ayaka OSMAN booked for 145pm. Patient, Baltazar, Kristine RN and Abbey REA aware. Original Note: Spoke with patient's son Mahendra, via telephone at [phone]. Mahendra states Baltazar's new telephone number is [phone]. T/W attempted to speak to [facility]. Left voicemail requesting return telephone call. Continue to monitor for d/c needs.
[2025-04-01 13:50] VITALS: BP 116/73; PULSE 74; RESP 16; O2SAT 94
[2025-04-01 13:51] VITALS: BP 116/73; PULSE 74; RESP 16; TEMP -17.7; TEMP 0; O2SAT 94
== END 2025-04-01 13:53 | disposition home or self-care (01) ==
PROVIDERS: Emergency Provider Emergency Medicine; PCP Family Medicine
DX: S32.019A Unspecified fracture of first lumbar vertebra, initial encounter for closed fracture (principal); W19.XXXA Unspecified fall, initial encounter; Y93.9 Activity, unspecified; Y92.9 Unspecified place or not applicable; Y99.9 Unspecified external cause status; R51.9 Headache, unspecified; M54.2 Cervicalgia; M54.50 Low back pain, unspecified
CPT/HCPCS: 70450; 72125; 72131; 96372; 97161; 99284; J1885

== ENCOUNTER → 2025-03-31 10:13 | Outpatient (BNV) | payer OTHER, MEDICARE, SELFPAY | PROVIDERS: PCP Family Medicine; Visit Provider Radiology Diagnostic Radiology | DX: M54.2 Cervicalgia (principal); M47.812 Spondylosis without myelopathy or radiculopathy, cervical region; S32.010A Wedge compression fracture of first lumbar vertebra, initial encounter for closed fracture; M81.0 Age-related osteoporosis without current pathological fracture; R51.9 Headache, unspecified; I67.82 Cerebral ischemia; J32.1 Chronic frontal sinusitis; W18.39XA Other fall on same level, initial encounter | CPT/HCPCS: 70450; 72125; 72131 ==

== ENCOUNTER 2025-04-06 08:33 | Emergency (ER) | payer OTHER, SELFPAY ==
[2025-04-06 08:45] VITALS: BP 173/85; PULSE 78; O2SAT 97
[2025-04-06 08:50] VITALS: BP 141/74; PULSE 68; RESP 18; TEMP 36.7; O2SAT 98; BMI 21.4
--- NOTE | 2025-04-06 09:01 | ED.BACK ---
HPI - Back Pain/Injury General Chief Complaint: Back Pain/Injury Stated Complaint: BACK PAIN,FALL LAST WEEK PER EMS Time Seen by Provider: 04/06/25 08:54 Source: patient and EMS Mode of arrival: EMS Limitations: no limitations History of Present Illness ED Provider: HPI Narrative: 74-year-old with a history of L1 compression fracture, on methadone 40 mg presenting with back pain no fevers or chills no numbness in her upper or lower extremities, ambulates with a walker. No new injury reported. Related Data Home Medications ?Medication ?Instructions ?Recorded ?Confirmed famotidine 20 mg tablet 20 mg PO DAILY 11/18/22 03/31/25 amitriptyline 10 mg tablet 20 mg PO BEDTIME 02/26/24 03/31/25 cyanocobalamin (vitamin B-12) 1,000 mcg PO DAILY 02/26/24 03/31/25 1,000 mcg tablet gabapentin 300 mg capsule 1,200 mg PO BEDTIME 02/26/24 03/31/25 gabapentin 300 mg capsule 900 mg PO BID@0800,1200 02/26/24 03/31/25 sennosides 8.6 mg-docusate sodium 2 tab PO BEDTIME Constipation 02/26/24 03/31/25 50 mg tablet (Senna Plus) vitamin E (dl, acetate) 45 mg (100 45 mg PO DAILY 02/26/24 03/31/25 unit) capsule quetiapine 100 mg tablet (Seroquel) 100 mg PO BEDTIME 07/06/24 03/31/25 memantine 5 mg tablet 5 mg PO BID 12/01/24 03/31/25 methadone 10 mg tablet 40 mg PO DAILY 02/01/25 02/02/25 tamsulosin 0.4 mg capsule 0.4 mg PO BEDTIME 03/31/25 03/31/25 Previous Rx's ?Medication ?Instructions ?Recorded calcium 500 mg (as 1 tab PO BID 30 days #60 tabs 01/22/22 carbonate)-vitamin D3 3.125 mcg (125 unit) tablet magnesium oxide 420 mg tablet 420 mg PO DAILY 30 days #30 tabs 01/22/22 acetaminophen 325 mg tablet 650 mg (2 x 325 mg) PO Q6H PRN 12/06/24 Headache/Pain, Scale 1-10 15 days #120 tabs naloxone 4 mg/actuation nasal 4 mg intranasal Q2M PRN opioid 12/06/24 spray (Narcan) overdose 1 day #2 ea valproic acid 250 mg capsule 250 mg PO BID #180 caps 02/27/25 lidocaine 4 % topical patch 1 patch topical DAILY PRN pain 7 04/06/25 (Aspercreme (lidocaine)) days #10 ea lidocaine 5 % topical patch 1 patch topical DAILY 30 days #30 04/06/25 ea naproxen 500 mg tablet 500 mg PO BID 5 days #10 tabs 04/06/25 Allergies Allergy/AdvReac Type Severity Reaction Status Date / Time No Known Allergies (No Known Allergy Verified 04/06/25 08:51 Allergies*) [facility] Past Medical History Medical History Polysubstance abuse Opioid use disorder Bipolar disorder Drug overdose Opioid use disorder, severe, on maintenance therapy Social History Social History Household Members: None Household Members Other:: Son Housing: Assisted Living Facility Do you presently have visiting nurse or other home services: No Alcohol intake: never Comment: sitter Patient Tobacco Use Status: Tobacco use Unknown Tobacco use type: Cigarette Cigarette Packs Per Day: 0.5 Cigarettes Per Day: 10.0 Years Smoked: 50 Smoked in Last 30 Days: No e-Cigarette/Vaping Use: Never Used Second Hand Smoke Exposure: Yes Use of substances other than those prescribed or required for medical reasons: No Substance Use Type: Crack/Cocaine, Heroin and Marijuana Advance Directives: Yes Advance Directives on File: Yes Advance Directives Date on File: 12/17/24 Do you have a plan to hurt others: No Plan service: Yes Sexual orientation: Straight/Heterosexual Physical Exam Exam: Exam: General: ?Appears of stated age ? ?Resp: ?No wheezing rales rhonchi no stridor moving air well ? Abd: ?Bowel sounds are present, no tenderness no rebound no rigidity ? ?MSK: FROM, strength 5/5 all extremities, had some mid back tenderness no step-offs is able to lift himself off the gurney ? Skin: Warm, dry, intact, ? ?Neuro: ?Alert and oriented x3, moving upper and lower extremities symmetrically, no obvious facial asymmetry noted, cranial nerves 2-12 intact Vital Signs: Vital Signs: Last Vital Signs Temp 98.2 F 04/06/25 09:53 Pulse 69 04/06/25 09:53 Resp 14 04/06/25 09:53 BP 115/71 04/06/25 09:53 Pulse Ox 96 04/06/25 09:53 O2 Del Method Room Air 04/06/25 09:53 BMI result Body Mass Index 21.4 Medications Administered Discontinued Medications Generic Name Dose Route Start Last Admin Trade Name Jennifer PRN Reason Stop Dose Admin Ketorolac Tromethamine 15 mg 04/06/25 08:59 04/06/25 09:14 Ketorolac Tromethamine 15 Mg/Ml Vial IM 04/06/25 09:00 15 mg ONCE ONE Administration Medical Decision Making Medical Decision Making MDM Narrative: 9:08 AM 04/06/2025 (Dr. Anurag Souza): No new trauma no fevers or chills no risk factors for diskitis osteomyelitis, with no evidence for cauda equina, L1 compression fracture, discussed with the patient that he is on 40 mg of methadone I would not be able to prescribe anything stronger than that he did improve with Toradol no indication for repeat imaging Differential Diagnosis Differential Diagnoses: The differential diagnosis associated with the presentation includes (Diskitis, osteomyelitis, spinal epidural abscess, cauda equina, musculoskeletal pain) Admission/Observation Consideration of admission/observation: Escalation of care including admission/observation considered Tests considered The following testing was considered but not selected: CT lumbar spine Prescription Management I considered prescription management with: Pain Medication Discharge Plan Discharge Clinical Impression: Lumbar radiculopathy Patient Disposition: Home, Self-Care Additional Instructions: Methadone is really the strongest pain medication that you can use but also recommend Naprosyn 500 mg twice a day, warm compresses to the area, and lidocaine patches For additional pain control follow up with the primary care physician Any other issues concerns come back to the ER Prescriptions: New lidocaine [Aspercreme (lidocaine)] 4 % adhesive patch,medicated 1 patch topical DAILY PRN (Reason: pain) 7 Days Qty: 10 0RF naproxen 500 mg tablet 500 mg PO BID 5 Days Qty: 10 0RF lidocaine 5 % adhesive patch,medicated 1 patch topical DAILY 30 Days Qty: 30 0RF Rx Instructions: leave on most painful area for up to 12 hrs No Action magnesium oxide 420 mg Tablet 420 mg PO DAILY 30 Days Qty: 30 0RF calcium carbonate-vitamin D3 500 mg-3.125 mcg (125 unit) Tablet 1 tab PO BID 30 Days Qty: 60 0RF cyanocobalamin (vitamin B-12) 1,000 mcg Tablet 1,000 mcg PO DAILY amitriptyline 10 mg Tablet 20 mg PO BEDTIME gabapentin 300 mg Capsule 900 mg PO BID@0800,1200 gabapentin 300 mg Capsule 1,200 mg PO BEDTIME vitamin E (dl, acetate) 45 mg (100 unit) Capsule 45 mg PO DAILY sennosides-docusate sodium [Senna Plus] 8.6-50 mg tablet 2 tab PO BEDTIME quetiapine [Seroquel] 100 mg Tablet 100 mg PO BEDTIME tamsulosin 0.4 mg capsule 0.4 mg PO BEDTIME famotidine 20 mg tablet 20 mg PO DAILY memantine 5 mg Tablet 5 mg PO BID acetaminophen 325 mg Tablet 650 mg PO Q6H PRN (Reason: Headache/Pain, Scale 1-10) 15 Days Qty: 120 1RF naloxone [Narcan] 4 mg/actuation spray,non-aerosol 4 mg intranasal Q2M PRN (Reason: opioid overdose) 1 Days Qty: 2 0RF Rx Instructions: spray 1 dose into ONE nostril; alternate nostrils w each dose until help arrives methadone 10 mg Tablet 40 mg PO DAILY valproic acid 250 mg Capsule 250 mg PO BID Qty: 180 0RF Referrals: [facility] [Outside] Moni Kohler MD [Primary Care Provider, Internal Medicine] Print Language: Yi
[2025-04-06 09:53] VITALS: BP 115/71; PULSE 69; RESP 14; TEMP 36.8; O2SAT 96
== END 2025-04-06 12:40 | disposition home or self-care (01) ==
PROVIDERS: Emergency Provider Emergency Medicine; PCP Family Medicine
DX: M54.16 Radiculopathy, lumbar region (principal)
CPT/HCPCS: 96372; 99284; J1885